=== PATIENT | female | born 1965 | race Caucasian/White ===

== ENCOUNTER 2019-08-10 16:46 | Emergency (ER) | payer OTHER ==
[~2019-08-10] VITALS: Ht 154.9 cm; Wt 72.6 kg
--- OUTSIDE RECORDS SUMMARY | 2019-08-10 16:59 | XMS REPORT ---
Author Author [facility] Address Unknown Phone Unavailable Care Team Providers Care Timber Inspector Name Role Phone DILMA SANCHEZ Unavailable Unavailable JAMES, ABDIRASHID SIMON Unavailable Unavailable DITOMMASO, MOHAN JOHAN Unavailable Unavailable DIOMEDES, CASSIA Unavailable Unavailable Problems This patient has no known problems. Allergies, Adverse Reactions, Alerts This patient has no known allergies or adverse reactions. Medications This patient has no known medications. Results Test Description Test Time Test Comments Text Results Atomic Results Result Comments RAD, CHEST, 1 VIEW, NON DEPT 2019-03-08 14:00:00 Reason for exam:->s/p perc pulm stentIs the patient ?->NoShould this be performed at the bedside?->Yes FINAL REPORT Comparison: 04/25/2018 TECHNIQUE: Single view of the chest FINDINGS: Mild vascular congestion. There may be trace pleural effusions. Small left pleural effusion. Interval placement of percutaneous pulmonary stent. No gross new lung parenchymal changes. IMPRESSION: Mild vascular congestion, and trace left pleural effusion. No pneumothorax. Interval placement of a percutaneous pulmonary stent. Signed: Aidan Nicole MDReport Verified Date/Time: 03/08/2019 14:00:53 Reading Location: [facility] Radiology Reading Room ESIUM 2019-03-08 05:09:00 MAGNESIUM (BEAKER) (test bdfo=266) 1.8 mg/dL 1.6-2.6 BASIC METABOLIC [id number] 05:09:00* Test Item Value Reference Range Comments SODIUM (BEAKER) (test degi=499) 140 meq/L 136-145 POTASSIUM (BEAKER) (test ucvy=094) 3.7 meq/L 3.5-5.1 CHLORIDE (BEAKER) (test cdel=160) 113 meq/L 98-107 CO2 (BEAKER) (test zogh=966) 20 meq/L 22-29 BLOOD UREA NITROGEN (BEAKER) (test uaxu=875) 18 mg/dL 7-21 CREATININE (BEAKER) (test jrpk=734) 0.97 mg/dL 0.57-1.25 GLUCOSE RANDOM (BEAKER) (test nsah=354) 76 mg/dL 70-105 CALCIUM (BEAKER) (test yqdb=731) 8.2 mg/dL 8.4-10.2 EGFR (BEAKER) (test jrsz=6330) 60 mL/min/1.73 sq m ESTIMATED GFR IS NOT ACCURATE CREATININE CLEARANCE IN PREDICTING GLOMERULAR FILTRATION RATE. ESTIMATED GFR IS NOT APPLICABLE FOR DIALYSIS PATIENTS. CBC W/PLT COUNT & AUTO [id number] 04:49:00* Test Item Value Reference Range Comments WHITE BLOOD CELL COUNT (BEAKER) (test mgij=940) 6.2 K/ L 3.5-10.5 RED BLOOD CELL COUNT (BEAKER) (test btkf=224) 3.43 M/ L 3.93-5.22 HEMOGLOBIN (BEAKER) (test mrpx=823) 10.0 GM/DL 11.2-15.7 HEMATOCRIT (BEAKER) (test ukif=289) 31.1 % 34.1-44.9 MEAN CORPUSCULAR VOLUME (BEAKER) (test pdtn=775) 90.7 fL 79.4-94.8 MEAN CORPUSCULAR HEMOGLOBIN (BEAKER) (test myid=541) 29.2 pg 25.6-32.2 MEAN CORPUSCULAR HEMOGLOBIN CONC (BEAKER) (test gvzp=238) 32.2 GM/DL 32.2-35.5 RED CELL DISTRIBUTION WIDTH (BEAKER) (test meaw=053) 14.0 % 11.7-14.4 PLATELET COUNT (BEAKER) (test hlgs=222) 135 K/CU MM 150-450 MEAN PLATELET VOLUME (BEAKER) (test ddkf=919) 10.9 fL 9.4-12.3 NUCLEATED RED BLOOD CELLS (BEAKER) (test lhfa=995) 0 /100 WBC 0-0 NEUTROPHILS RELATIVE PERCENT (BEAKER) (test kwwq=064) 64 % LYMPHOCYTES RELATIVE PERCENT (BEAKER) (test ofwy=038) 20 % MONOCYTES RELATIVE PERCENT (BEAKER) (test tlha=466) 9 % EOSINOPHILS RELATIVE PERCENT (BEAKER) (test djwa=979) 6 % BASOPHILS RELATIVE PERCENT (BEAKER) (test njqb=031) 0 % NEUTROPHILS ABSOLUTE COUNT (BEAKER) (test jeqj=183) 3.97 K/ L 1.56-6.13 LYMPHOCYTES ABSOLUTE COUNT (BEAKER) (test szgb=122) 1.24 K/ L 1.18-3.74 MONOCYTES ABSOLUTE COUNT (BEAKER) (test mjcy=314) 0.57 K/ L 0.24-0.36 EOSINOPHILS ABSOLUTE COUNT (BEAKER) (test zdmg=160) 0.37 K/ L 0.04-0.36 BASOPHILS ABSOLUTE COUNT (BEAKER) (test hzds=512) 0.02 K/ L 0.01-0.08 IMMATURE GRANULOCYTES-RELATIVE PERCENT (BEAKER) (test fqlo=5226) 0 % 0-1 [id number] 15:12:00* Test Item Value Reference Range Comments ACTIVATED CLOTTING TIME (BEAKER) (test ydfk=166) 362 sec TESTED AT [facility] [address] [facility] [address] [id number] 15:12:00* Test Item Value Reference Range Comments ACTIVATED CLOTTING TIME (BEAKER) (test atko=748) 400 sec TESTED AT [facility] [address] [facility] [address] CT, [id number] 14:46:00FINAL REPORT ABDOMINAL AND PELVIS CT DATED 10/05/2018 CLINICAL INFORMATION: LLQ pain TECHNIQUE: Axial images of the abdomen and pelvis were obtained from diaphragm to the pubic symphysis with intravenous contrast. This exam was performed according to our departmental dose-optimization program, which includes automated exposure control, adjustment of the mA and/or kV according to patient size and/or use of interactive reconstruction technique. COMMENT: Liver and spleen are normal in size without focal abnormality. Gallbladder is contracted. Several gallstones are present. No biliary dilatation is noted. Pancreas and adrenals are unremarkable. There is persistent severe left hydronephrosis. Diverticular disease is seen in the large bowel without diverticulitis. The small bowel is normal in caliber. Appendix is unremarkable. There is persistent dissection extending from the visualized distal descending thoracic aorta through the entire abdominal aorta into the left common iliac artery. 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 IMPRESSION: 1. 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 Persistent severe left h ydronephrosis.3. Diverticulosis without diverticulitis.4. Cholelithiasis without biliary dilatation. Signed: Jhonny Miner MDReport Verified Date/Time: 10/05/2018 14:46:25 Reading Location: [facility] [id number] CT Body Reading Room ALYSIS W/ REFLEX URINE [id number] 13:39:00* Test Item Value Reference Range Comments COLOR (BEAKER) (test tdoc=549) Yellow CLARITY (BEAKER) (test fghb=973) Clear SPECIFIC GRAVITY UA (BEAKER) (test dmtx=637) 1.010 1.001-1.035 PH UA (BEAKER) (test kimz=412) 5.5 5.0-8.0 PROTEIN UA (BEAKER) (test suaf=827) Negative Negative GLUCOSE UA (BEAKER) (test ucdm=371) Negative Negative KETONES UA (BEAKER) (test aebo=553) Negative Negative BILIRUBIN UA (BEAKER) (test hpbu=227) Negative Negative BLOOD UA (BEAKER) (test xngc=283) Negative Negative NITRITE UA (BEAKER) (test foys=152) Negative Negative LEUKOCYTE ESTERASE UA (BEAKER) (test zgzm=730) Negative Negative UROBILINOGEN UA (BEAKER) (test xmaf=434) 0.2 mg/dL 0.2-1.0 BACTERIA (BEAKER) (test jmyo=842) Occasional RBC UA-MANUAL (BEAKER) (test qira=4400) None Seen /HPF WBC UA-MANUAL (BEAKER) (test xkuk=9001) None Seen /HPF SQUAMOUS EPITHELIAL MANUAL (BEAKER) (test vxdq=3656) None Seen /HPF SOURCE(BEAKER) (test kiru=0020) HEPATIC FUNCTION [id number] 13:36:00* Test Item Value Reference Range Comments TOTAL PROTEIN (BEAKER) (test wgtv=189) 6.9 gm/dL 6.0-8.5 ALBUMIN (BEAKER) (test voqj=6313) 4.1 g/dL 3.5-5.0 BILIRUBIN TOTAL (BEAKER) (test kfhs=264) 0.3 mg/dL 0.1-1.2 BILIRUBIN DIRECT (BEAKER) (test cegw=348) 0.0 mg/dL 0.0-0.4 ALKALINE PHOSPHATASE (BEAKER) (test occp=093) 71 U/L 30-115 AST (SGOT) (BEAKER) (test ubaj=671) 29 U/L 5-40 ALT (SGPT) (BEAKER) (test vccb=950) 39 U/L 5-50 BASIC METABOLIC [id number] 13:34:00* Test Item Value Reference Range Comments SODIUM (BEAKER) (test mrwd=317) 143 meq/L 135-148 POTASSIUM (BEAKER) (test tyko=359) 3.6 meq/L 3.6-5.5 CHLORIDE (BEAKER) (test rypm=124) 106 meq/L 98-106 CO2 (BEAKER) (test xdiv=435) 24 meq/L 24-32 BLOOD UREA NITROGEN (BEAKER) (test tnip=718) 28 mg/dL 10-26 CREATININE (BEAKER) (test jlxy=903) 1.15 mg/dL 0.50-1.20 GLUCOSE RANDOM (BEAKER) (test ufev=312) 75 mg/dL 70-110 CALCIUM (BEAKER) (test mfdf=973) 9.0 mg/dL 8.5-10.5 EGFR (BEAKER) (test ynjv=7504) 50 mL/min/1.73 sq m ESTIMATED GFR IS NOT ACCURATE CREATININE CLEARANCE IN PREDICTING GLOMERULAR FILTRATION RATE. ESTIMATED GFR IS NOT APPLICABLE FOR DIALYSIS PATIENTS. [id number] 13:34:00* Test Item Value Reference Range Comments LIPASE (BEAKER) (test tyjk=112) 129 U/L 40-240 CBC W/PLT COUNT & AUTO [id number] 13:31:00* Test Item Value Reference Range Comments WHITE BLOOD CELL COUNT (BEAKER) (test iqjv=152) 5.1 K/ L 4.0-10.0 RED BLOOD CELL COUNT (BEAKER) (test nser=544) 3.81 M/ L 4.00-5.00 HEMOGLOBIN (BEAKER) (test xzww=963) 11.4 GM/DL 12.0-15.0 HEMATOCRIT (BEAKER) (test lvju=539) 34.0 % 36.0-45.0 MEAN CORPUSCULAR VOLUME (BEAKER) (test guig=440) 89.1 fL 82.0-99.0 MEAN CORPUSCULAR HEMOGLOBIN (BEAKER) (test jojg=331) 30.0 pg 27.0-33.0 MEAN CORPUSCULAR HEMOGLOBIN CONC (BEAKER) (test ejik=291) 33.6 GM/DL 32.0-36.0 RED CELL DISTRIBUTION WIDTH (BEAKER) (test ycfa=511) 12.8 % 10.3-14.2 PLATELET COUNT (BEAKER) (test ydgb=604) 205 K/CU MM 150-430 MEAN PLATELET VOLUME (BEAKER) (test buuq=956) 7.6 fL 6.5-10.5 NEUTROPHILS RELATIVE PERCENT (BEAKER) (test arhe=883) 45 % LYMPHOCYTES RELATIVE PERCENT (BEAKER) (test qldg=530) 37 % MONOCYTES RELATIVE PERCENT (BEAKER) (test fiqk=665) 12 % EOSINOPHILS RELATIVE PERCENT (BEAKER) (test xsbb=288) 6 % BASOPHILS RELATIVE PERCENT (BEAKER) (test kodn=722) 1 % NEUTROPHILS ABSOLUTE COUNT (BEAKER) (test utwh=620) 2.27 K/ L 1.80-8.00 LYMPHOCYTES ABSOLUTE COUNT (BEAKER) (test mbmf=321) 1.88 K/ L 1.48-4.50 MONOCYTES ABSOLUTE COUNT (BEAKER) (test kzqc=331) 0.59 K/ L 0.00-1.30 EOSINOPHILS ABSOLUTE COUNT (BEAKER) (test igty=693) 0.29 K/ L 0.00-0.50 BASOPHILS ABSOLUTE COUNT (BEAKER) (test kcmq=270) 0.03 K/ L 0.00-0.20 PUL QUANT DIFFERENTIAL FUNCT [id number] 17:03:00FINAL REPORT PROCEDURE: V/Q LUNG SCAN w/differential function (xenon) CPT CODE: [id number] INDICATION: Pulmonary hypertension, dyspnea PROTOCOL: 9.8 mCi of Xe-133 gas was administered by inhalation. Single breath, rebreathing images and washout images were obtained in the anterior and the posterior projections. 4.3 mCi of Tc-99m MAA was then injected intravenously, and static perfusion images were obtained in multiple projections. Relative tracer distribution was determined using the geometric mean method for the anterior and posterior projections. FINDINGS: Ventilation: Initial tr acer distribution is mildly decreased in the right upper lobe and the left apex. Tracer is divided 37% to the left lung (10, 22, and 5% to the upper, mid, and l ower lung rodriguez respectively) and 63% to the right lung (12, 32, and 19% to the upper, mid, and lower lung rodriguez respectively). Washout is moderately delayed throughout both lungs. Perfusion: Tracer distribution is mildly, irregularly de creased in the posterior left lung and left apex in a nonsegmental distribution. There is moderate, lobar decrease in activity in the right upper and middle lob es and mild decrease in the right lower lobe. Pulmonary artery flow is divided 5 4% to the left lung (10, 36, and 8% to the upper, mid, and lower lung rodriguez res pectively) and 46% to the right lung (6, 29, and 11% to the upper, mid, and lowe r lung rodriguez respectively). IMPRESSION: 1.Very low probability of acute p ulmonary embolization.2.Parenchymal abnormalities of both lungs with volume loss in the left lung.3.Ventilation and perfusion deficits are not proportional with relatively decreased perfusion of the right lung compared to the ventilatory de ficit. This pattern may be due to parenchymal abnormality, but in the absence of such findings, proximal right pulmonary artery stenosis could also cause this a bnormality. Signed: Nathaniel Morgan MDReport Verified Date/Time: 05/03/2018 17:03 :55 Reading Location: [address] Reading Room Electronically s igned by: NATHANIEL MORGAN MD on 05/03/2018 05:03 PM RAD, CHEST, 2 VIEWS 2018-04-25 12:56:00Reason for Exam:->R06.00FINAL REPORT HISTORY : R06.00. Comparison: 03/23/2017 Comment: Two views of the chest, PA and lateral, were obtained. The cardiac silhouette is within normal limits. No pneumothorax or pleural effusion is seen. No lytic or blastic abnormalities. The patient is status post sternotomy. There is a tortuous/ectatic thoracic aorta. There is some nonspecific interstitial prominence as well as possible fibrosis in the lung bases. There is also some accompanying patchy airspace disease in the lung bases. Multilevel degenerative disc changes of the thoracic spine are seen. Impression: Persistent interstitial prominence and patchy airspace disease in the lung bases. The airspace disease is slightly increased. Signed: Portia Mello MDReport Verified Date/Time: 04/25/2018 12:56:32 Reading Location: [address] Radiology Reading Room CULTURE + [id number] 10:19:00* Test Item Value Reference Range Comments CULTURE (BEAKER) (test xutq=3148) No acid-fast bacilli isolated in 42 days AFB SMEAR (BEAKER) (test wehr=509) No acid fast bacilli seen BASIC METABOLIC [id number] 07:04:00* Test Item Value Reference Range Comments SODIUM (BEAKER) (test mntd=970) 127 meq/L 136-145 POTASSIUM (BEAKER) (test plsw=796) 5.0 meq/L 3.5-5.1 Specimen slightly hemolyzed CHLORIDE (BEAKER) (test gudb=853) 95 meq/L 98-107 CO2 (BEAKER) (test uudp=140) 23 meq/L 22-29 BLOOD UREA NITROGEN (BEAKER) (test oxjj=994) 23 mg/dL 7-21 CREATININE (BEAKER) (test rxwh=719) 1.44 mg/dL 0.57-1.25 Specimen slightly hemolyzed GLUCOSE RANDOM (BEAKER) (test orqq=189) 90 mg/dL 70-105 CALCIUM (BEAKER) (test rdoe=110) 9.3 mg/dL 8.4-10.2 EGFR (BEAKER) (test sbug=7956) 38 mL/min/1.73 sq m ESTIMATED GFR IS NOT ACCURATE CREATININE CLEARANCE IN PREDICTING GLOMERULAR FILTRATION RATE. ESTIMATED GFR IS NOT APPLICABLE FOR DIALYSIS PATIENTS. POCT-GLUCOSE [id number] 06:11:00* Test Item Value Reference Range Comments POC-GLUCOSE METER (BEAKER) (test antv=0354) 110 mg/dL 70-110 TESTED AT [facility] [address] [facility] [address] URINALYSIS W/ [id number] 19:14:00* Test Item Value Reference Range Comments COLOR (BEAKER) (test tbsa=610) Light Yellow CLARITY (BEAKER) (test oupl=755) Clear SPECIFIC GRAVITY UA (BEAKER) (test gvul=396) 1.004 1.001-1.035 PH UA (BEAKER) (test ezzs=851) 6.5 5.0-8.0 PROTEIN UA (BEAKER) (test jghl=575) Negative Negative GLUCOSE UA (BEAKER) (test pwls=587) Negative Negative KETONES UA (BEAKER) (test hwnm=965) Negative Negative BILIRUBIN UA (BEAKER) (test lxnt=391) Negative Negative BLOOD UA (BEAKER) (test woup=533) Negative Negative NITRITE UA (BEAKER) (test ycka=486) Negative Negative LEUKOCYTE ESTERASE UA (BEAKER) (test jleq=440) Trace Negative UROBILINOGEN UA (BEAKER) (test hskt=275) 0.2 mg/dL 0.2-1.0 RBC UA (BEAKER) (test wplz=087) 0 /HPF WBC UA (BEAKER) (test ocon=040) 2 /HPF SQUAMOUS EPITHELIAL (BEAKER) (test kvjs=728) < /HPF HYALINE CASTS (BEAKER) (test nddt=258) 5 /LPF SOURCE(BEAKER) (test wjfg=2830) POCT-GLUCOSE [id number] 16:09:00* Test Item Value Reference Range Comments POC-GLUCOSE METER (BEAKER) (test eztl=0394) 112 mg/dL 70-110 TESTED AT [facility] [address] [facility] [address] [id number] 06:49:00* Test Item Value Reference Range Comments MAGNESIUM (BEAKER) (test ttfk=389) 2.1 mg/dL 1.6-2.6 BASIC METABOLIC [id number] 06:49:00* Test Item Value Reference Range Comments SODIUM (BEAKER) (test gzgi=692) 128 meq/L 136-145 POTASSIUM (BEAKER) (test ovzk=429) 4.6 meq/L 3.5-5.1 CHLORIDE (BEAKER) (test pgon=815) 95 meq/L 98-107 CO2 (BEAKER) (test pldn=529) 23 meq/L 22-29 BLOOD UREA NITROGEN (BEAKER) (test mhqd=848) 24 mg/dL 7-21 CREATININE (BEAKER) (test iuij=708) 1.43 mg/dL 0.57-1.25 GLUCOSE RANDOM (BEAKER) (test yvwi=931) 96 mg/dL 70-105 CALCIUM (BEAKER) (test unhh=447) 9.5 mg/dL 8.4-10.2 EGFR (BEAKER) (test thfc=7923) 39 mL/min/1.73 sq m ESTIMATED GFR IS NOT ACCURATE CREATININE CLEARANCE IN PREDICTING GLOMERULAR FILTRATION RATE. ESTIMATED GFR IS NOT APPLICABLE FOR DIALYSIS PATIENTS. POCT-GLUCOSE [id number] 06:05:00* Test Item Value Reference Range Comments POC-GLUCOSE METER (BEAKER) (test uyju=7070) 102 mg/dL 70-110 TESTED AT [address] [address] POCT-GLUCOSE [id number] 16:21:00* Test Item Value Reference Range Comments POC-GLUCOSE METER (BEAKER) (test qcbv=0704) 151 mg/dL 70-110 TESTED AT [place] [id number] [facility] [address] POCT-GLUCOSE [id number] 06:23:00* Test Item Value Reference Range Comments POC-GLUCOSE METER (BEAKER) (test qntc=1657) 101 mg/dL 70-110 TESTED AT [address] [address] BASIC METABOLIC [id number] 06:15:00* Test Item Value Reference Range Comments SODIUM (BEAKER) (test ixlc=887) 128 meq/L 136-145 POTASSIUM (BEAKER) (test gqit=932) 4.4 meq/L 3.5-5.1 CHLORIDE (BEAKER) (test mspp=818) 94 meq/L 98-107 CO2 (BEAKER) (test brzz=501) 22 meq/L 22-29 BLOOD UREA NITROGEN (BEAKER) (test hzyb=590) 21 mg/dL 7-21 CREATININE (BEAKER) (test bfwh=693) 1.36 mg/dL 0.57-1.25 GLUCOSE RANDOM (BEAKER) (test gwkr=387) 101 mg/dL 70-105 CALCIUM (BEAKER) (test ijzu=250) 9.4 mg/dL 8.4-10.2 EGFR (BEAKER) (test jvnb=5654) 41 mL/min/1.73 sq m ESTIMATED GFR IS NOT ACCURATE CREATININE CLEARANCE IN PREDICTING GLOMERULAR FILTRATION RATE. ESTIMATED GFR IS NOT APPLICABLE FOR DIALYSIS PATIENTS. [id number] 06:13:00* Test Item Value Reference Range Comments MAGNESIUM (BEAKER) (test pwmk=509) 2.2 mg/dL 1.6-2.6 CBC W/PLT COUNT & AUTO [id number] 05:46:00* Test Item Value Reference Range Comments WHITE BLOOD CELL COUNT (BEAKER) (test zyso=794) 7.4 K/ L 3.5-10.5 RED BLOOD CELL COUNT (BEAKER) (test rnqu=204) 3.05 M/ L 3.93-5.22 HEMOGLOBIN (BEAKER) (test wvud=512) 9.2 GM/DL 11.2-15.7 HEMATOCRIT (BEAKER) (test iiku=837) 28.0 % 34.1-44.9 MEAN CORPUSCULAR VOLUME (BEAKER) (test varw=919) 91.8 fL 79.4-94.8 MEAN CORPUSCULAR HEMOGLOBIN (BEAKER) (test fiux=021) 30.2 pg 25.6-32.2 MEAN CORPUSCULAR HEMOGLOBIN CONC (BEAKER) (test ptdf=480) 32.9 GM/DL 32.2-35.5 RED CELL DISTRIBUTION WIDTH (BEAKER) (test sqam=392) 14.4 % 11.7-14.4 PLATELET COUNT (BEAKER) (test rchy=234) 326 K/CU MM 150-450 MEAN PLATELET VOLUME (BEAKER) (test kqgu=060) 8.7 fL 9.4-12.3 NUCLEATED RED BLOOD CELLS (BEAKER) (test igph=508) 0 /100 WBC 0-0 NEUTROPHILS RELATIVE PERCENT (BEAKER) (test nprd=563) 48 % LYMPHOCYTES RELATIVE PERCENT (BEAKER) (test msba=495) 39 % MONOCYTES RELATIVE PERCENT (BEAKER) (test gctd=238) 9 % EOSINOPHILS RELATIVE PERCENT (BEAKER) (test vpfw=357) 4 % BASOPHILS RELATIVE PERCENT (BEAKER) (test pywm=118) 1 % NEUTROPHILS ABSOLUTE COUNT (BEAKER) (test zmwj=606) 3.51 K/ L 1.56-6.13 LYMPHOCYTES ABSOLUTE COUNT (BEAKER) (test anqq=005) 2.84 K/ L 1.18-3.74 MONOCYTES ABSOLUTE COUNT (BEAKER) (test mqwd=535) 0.67 K/ L 0.24-0.36 EOSINOPHILS ABSOLUTE COUNT (BEAKER) (test nzeo=262) 0.26 K/ L 0.04-0.36 BASOPHILS ABSOLUTE COUNT (BEAKER) (test epxm=748) 0.04 K/ L 0.01-0.08 IMMATURE GRANULOCYTES-RELATIVE PERCENT (BEAKER) (test qnzr=0706) 1 % 0-1 POCT-GLUCOSE [id number] 16:38:00* Test Item Value Reference Range Comments POC-GLUCOSE METER (BEAKER) (test quzx=0215) 156 mg/dL 70-110 TESTED AT [address] [address] OSMOLALITY, [id number] 08:32:00* Test Item Value Reference Range Comments OSMOLALITY, SERUM (BEAKER) (test kfib=205) 272 mOsm/kg 275-295 TSH/FREE T4 IF [id number] 07:24:00* Test Item Value Reference Range Comments THYROID STIMULATING HORMONE (BEAKER) (test akwe=444) 1.62 uIU/mL 0.35-4.94 [id number] 06:57:00* Test Item Value Reference Range Comments MAGNESIUM (BEAKER) (test tsfi=531) 2.2 mg/dL 1.6-2.6 POCT-GLUCOSE [id number] 06:06:00* Test Item Value Reference Range Comments POC-GLUCOSE METER (BEAKER) (test dmvf=1466) 110 mg/dL 70-110 TESTED AT [address] [address] SODIUM, RANDOM [id number] 23:03:00* Test Item Value Reference Range Comments SODIUM URINE (BEAKER) (test xpfz=183) 77 meq/L Reference Range: No NormalsOSMOLALITY, [id number] 22:54:00* Test Item Value Reference Range Comments OSMOLALITY URINE (BEAKER) (test zdmq=896) 277 mOsm/kg 40-1400 POCT-GLUCOSE [id number] 16:09:00* Test Item Value Reference Range Comments POC-GLUCOSE METER (BEAKER) (test nroy=9234) 124 mg/dL 70-110 TESTED AT [address] [address] BASIC METABOLIC [id number] 08:34:00* Test Item Value Reference Range Comments SODIUM (BEAKER) (test okkr=152) 129 meq/L 136-145 POTASSIUM (BEAKER) (test uovd=613) 3.8 meq/L 3.5-5.1 CHLORIDE (BEAKER) (test gshl=095) 102 meq/L 98-107 CO2 (BEAKER) (test mfmp=062) 18 meq/L 22-29 BLOOD UREA NITROGEN (BEAKER) (test wccx=209) 14 mg/dL 7-21 CREATININE (BEAKER) (test owrv=814) 0.88 mg/dL 0.57-1.25 GLUCOSE RANDOM (BEAKER) (test anyy=013) 82 mg/dL 70-105 CALCIUM (BEAKER) (test wowu=583) 7.7 mg/dL 8.4-10.2 EGFR (BEAKER) (test bout=1802) 67 mL/min/1.73 sq m ESTIMATED GFR IS NOT ACCURATE CREATININE CLEARANCE IN PREDICTING GLOMERULAR FILTRATION RATE. ESTIMATED GFR IS NOT APPLICABLE FOR DIALYSIS PATIENTS. [id number] 08:15:00* Test Item Value Reference Range Comments MAGNESIUM (BEAKER) (test qotx=481) 1.3 mg/dL 1.6-2.6 CBC (HEMOGRAM ONLY)2018-03-27 08:05:00* Test Item Value Reference Range Comments WHITE BLOOD CELL COUNT (BEAKER) (test wefu=033) 8.0 K/ L 3.5-10.5 RED BLOOD CELL COUNT (BEAKER) (test ieqx=274) 2.72 M/ L 3.93-5.22 HEMOGLOBIN (BEAKER) (test efzs=421) 8.4 GM/DL 11.2-15.7 HEMATOCRIT (BEAKER) (test bczd=621) 25.4 % 34.1-44.9 MEAN CORPUSCULAR VOLUME (BEAKER) (test mtwa=854) 93.4 fL 79.4-94.8 MEAN CORPUSCULAR HEMOGLOBIN (BEAKER) (test upoj=918) 30.9 pg 25.6-32.2 MEAN CORPUSCULAR HEMOGLOBIN CONC (BEAKER) (test wqvz=561) 33.1 GM/DL 32.2-35.5 RED CELL DISTRIBUTION WIDTH (BEAKER) (test qzrd=940) 14.6 % 11.7-14.4 PLATELET COUNT (BEAKER) (test ibsi=778) 326 K/CU MM 150-450 MEAN PLATELET VOLUME (BEAKER) (test wzmz=299) 9.0 fL 9.4-12.3 NUCLEATED RED BLOOD CELLS (BEAKER) (test rxrf=448) 0 /100 WBC 0-0 POCT-GLUCOSE [id number] 05:50:00* Test Item Value Reference Range Comments POC-GLUCOSE METER (BEAKER) (test rknf=7661) 108 mg/dL 70-110 TESTED AT [address] [address] POCT-GLUCOSE [id number] 16:12:00* Test Item Value Reference Range Comments POC-GLUCOSE METER (BEAKER) (test ikel=5130) 176 mg/dL 70-110 TESTED AT [address] [address] POCT-GLUCOSE [id number] 06:07:00* Test Item Value Reference Range Comments POC-GLUCOSE METER (BEAKER) (test zaox=8839) 98 mg/dL 70-110 TESTED AT [address] [address] POCT-GLUCOSE [id number] 16:27:00* Test Item Value Reference Range Comments POC-GLUCOSE METER (BEAKER) (test sflp=0964) 187 mg/dL 70-110 TESTED AT [address] [address] POCT-GLUCOSE [id number] 05:46:00* Test Item Value Reference Range Comments POC-GLUCOSE METER (BEAKER) (test aajb=3159) 97 mg/dL 70-110 TESTED AT [address] [address] POCT-GLUCOSE [id number] 17:09:00* Test Item Value Reference Range Comments POC-GLUCOSE METER (BEAKER) (test fnhy=8806) 134 mg/dL 70-110 TESTED AT [address] [address] [id number] 07:10:00* Test Item Value Reference Range Comments MAGNESIUM (BEAKER) (test brof=302) 2.0 mg/dL 1.6-2.6 BASIC METABOLIC [id number] 07:10:00* Test Item Value Reference Range Comments SODIUM (BEAKER) (test nxai=314) 129 meq/L 136-145 POTASSIUM (BEAKER) (test rpyk=662) 4.7 meq/L 3.5-5.1 CHLORIDE (BEAKER) (test ausd=568) 99 meq/L 98-107 CO2 (BEAKER) (test xgzr=864) 22 meq/L 22-29 BLOOD UREA NITROGEN (BEAKER) (test giqs=852) 11 mg/dL 7-21 CREATININE (BEAKER) (test ptco=740) 0.81 mg/dL 0.57-1.25 GLUCOSE RANDOM (BEAKER) (test tbxk=699) 105 mg/dL 70-105 CALCIUM (BEAKER) (test ovtt=887) 9.4 mg/dL 8.4-10.2 EGFR (BEAKER) (test ftxe=2896) 74 mL/min/1.73 sq m ESTIMATED GFR IS NOT ACCURATE CREATININE CLEARANCE IN PREDICTING GLOMERULAR FILTRATION RATE. ESTIMATED GFR IS NOT APPLICABLE FOR DIALYSIS PATIENTS. CBC (HEMOGRAM ONLY)2018-03-24 06:38:00* Test Item Value Reference Range Comments WHITE BLOOD CELL COUNT (BEAKER) (test ipcj=208) 7.7 K/ L 3.5-10.5 RED BLOOD CELL COUNT (BEAKER) (test pluy=818) 2.93 M/ L 3.93-5.22 HEMOGLOBIN (BEAKER) (test wwjh=795) 9.0 GM/DL 11.2-15.7 HEMATOCRIT (BEAKER) (test kdnh=695) 26.9 % 34.1-44.9 MEAN CORPUSCULAR VOLUME (BEAKER) (test fgmc=539) 91.8 fL 79.4-94.8 MEAN CORPUSCULAR HEMOGLOBIN (BEAKER) (test txoe=948) 30.7 pg 25.6-32.2 MEAN CORPUSCULAR HEMOGLOBIN CONC (BEAKER) (test ythd=354) 33.5 GM/DL 32.2-35.5 RED CELL DISTRIBUTION WIDTH (BEAKER) (test eneg=532) 14.6 % 11.7-14.4 PLATELET COUNT (BEAKER) (test llhh=696) 314 K/CU MM 150-450 MEAN PLATELET VOLUME (BEAKER) (test nnwe=188) 8.5 fL 9.4-12.3 NUCLEATED RED BLOOD CELLS (BEAKER) (test duiu=042) 0 /100 WBC 0-0 POCT-GLUCOSE [id number] 06:03:00* Test Item Value Reference Range Comments POC-GLUCOSE METER (BEAKER) (test rpgm=4323) 106 mg/dL 70-110 TESTED AT [facility] [address] [facility] [address] RAD, CHEST, 1 VIEW, NON [id number] 21:09:00Reason for exam:->r/o aspiration pneumoniaShould this be performed at the bedside?->YesFINAL REPORT RAD, CHEST, 1 VIEW, NON DEPT INDICATION: r/o aspiration pneumonia COMPARISON: March 13, 2018 FINDINGS: Portable frontal view of the chest. IMPRESSION: Support Lines: The tracheostomy tube is been removed. Lungs and pleura: Basilar atelectatic changes noted bilaterally. Interstitial markings are similar to the prior examination. No new consolidation. No pneumothorax.Heart and mediastinum: Stable contours. Stable surgical changes.Additional findings: None. Signed: JR Lucas Robert MDReport Verified Date/Time: 03/23/2018 21:09:41 Reading Location: [address] Body Reading Room -GLUCOSE METER 2018-03-23 17:46:00* Test Item Value Reference Range Comments POC-GLUCOSE METER (BEAKER) (test wedp=9032) 138 mg/dL 70-110 TESTED AT [place] [id number] [facility] [address] [id number] 07:59:00* Test Item Value Reference Range Comments MAGNESIUM (BEAKER) (test zkot=705) 2.2 mg/dL 1.6-2.6 Specimen slightly hemolyzed BASIC METABOLIC [id number] 07:59:00* Test Item Value Reference Range Comments SODIUM (BEAKER) (test tess=626) 129 meq/L 136-145 POTASSIUM (BEAKER) (test cigx=867) 4.4 meq/L 3.5-5.1 Specimen slightly hemolyzed CHLORIDE (BEAKER) (test kbpe=308) 97 meq/L 98-107 CO2 (BEAKER) (test fmnh=847) 23 meq/L 22-29 BLOOD UREA NITROGEN (BEAKER) (test lmss=380) 12 mg/dL 7-21 CREATININE (BEAKER) (test cgzs=930) 0.82 mg/dL 0.57-1.25 Specimen slightly hemolyzed GLUCOSE RANDOM (BEAKER) (test jlkb=559) 94 mg/dL 70-105 CALCIUM (BEAKER) (test irne=036) 10.0 mg/dL 8.4-10.2 EGFR (BEAKER) (test rhkg=3086) 73 mL/min/1.73 sq m ESTIMATED GFR IS NOT ACCURATE CREATININE CLEARANCE IN PREDICTING GLOMERULAR FILTRATION RATE. ESTIMATED GFR IS NOT APPLICABLE FOR DIALYSIS PATIENTS. POCT-GLUCOSE [id number] 06:05:00* Test Item Value Reference Range Comments POC-GLUCOSE METER (BEAKER) (test waap=9044) 114 mg/dL 70-110 TESTED AT [address] [address] AFB CULTURE + [id number] 22:03:00* Test Item Value Reference Range Comments CULTURE (BEAKER) (test onmk=4256) No acid-fast bacilli isolated in 42 days AFB SMEAR (BEAKER) (test sdjm=034) No acid fast bacilli seen POCT-GLUCOSE [id number] 18:17:00* Test Item Value Reference Range Comments POC-GLUCOSE METER (BEAKER) (test kcdn=9952) 119 mg/dL 70-110 TESTED AT [address] [address] POCT-GLUCOSE [id number] 11:08:00* Test Item Value Reference Range Comments POC-GLUCOSE METER (BEAKER) (test ikka=5386) 173 mg/dL 70-110 TESTED AT [address] [address] [id number] 05:58:00* Test Item Value Reference Range Comments MAGNESIUM (BEAKER) (test znnd=060) 1.9 mg/dL 1.6-2.6 BASIC METABOLIC [id number] 05:58:00* Test Item Value Reference Range Comments SODIUM (BEAKER) (test bygo=348) 129 meq/L 136-145 POTASSIUM (BEAKER) (test piuz=583) 3.5 meq/L 3.5-5.1 CHLORIDE (BEAKER) (test difu=490) 95 meq/L 98-107 CO2 (BEAKER) (test tivl=120) 24 meq/L 22-29 BLOOD UREA NITROGEN (BEAKER) (test treb=444) 14 mg/dL 7-21 CREATININE (BEAKER) (test qsyo=788) 0.84 mg/dL 0.57-1.25 GLUCOSE RANDOM (BEAKER) (test twhq=146) 114 mg/dL 70-105 CALCIUM (BEAKER) (test fsyc=200) 9.3 mg/dL 8.4-10.2 EGFR (BEAKER) (test ziqx=6545) 71 mL/min/1.73 sq m ESTIMATED GFR IS NOT ACCURATE CREATININE CLEARANCE IN PREDICTING GLOMERULAR FILTRATION RATE. ESTIMATED GFR IS NOT APPLICABLE FOR DIALYSIS PATIENTS. POCT-GLUCOSE [id number] 05:50:00* Test Item Value Reference Range Comments POC-GLUCOSE METER (BEAKER) (test qsyg=8664) 112 mg/dL 70-110 TESTED AT [address] [address] POCT-GLUCOSE [id number] 20:38:00* Test Item Value Reference Range Comments POC-GLUCOSE METER (BEAKER) (test xayn=3647) 149 mg/dL 70-110 TESTED AT [address] [address] POCT-GLUCOSE [id number] 16:17:00* Test Item Value Reference Range Comments POC-GLUCOSE METER (BEAKER) (test pmiv=6631) 164 mg/dL 70-110 TESTED AT [address] [address] POCT-GLUCOSE [id number] 12:01:00* Test Item Value Reference Range Comments POC-GLUCOSE METER (BEAKER) (test ztmv=1222) 173 mg/dL 70-110 TESTED AT [address] [address] [id number] 06:45:00* Test Item Value Reference Range Comments MAGNESIUM (BEAKER) (test vysr=633) 2.1 mg/dL 1.6-2.6 BASIC METABOLIC [id number] 06:45:00* Test Item Value Reference Range Comments SODIUM (BEAKER) (test wege=567) 128 meq/L 136-145 POTASSIUM (BEAKER) (test nxqh=728) 3.5 meq/L 3.5-5.1 CHLORIDE (BEAKER) (test eofh=797) 94 meq/L 98-107 CO2 (BEAKER) (test drve=314) 24 meq/L 22-29 BLOOD UREA NITROGEN (BEAKER) (test cewn=518) 16 mg/dL 7-21 CREATININE (BEAKER) (test gqga=733) 0.85 mg/dL 0.57-1.25 GLUCOSE RANDOM (BEAKER) (test iyxt=972) 106 mg/dL 70-105 CALCIUM (BEAKER) (test nzfc=369) 9.2 mg/dL 8.4-10.2 EGFR (BEAKER) (test rhns=0407) 70 mL/min/1.73 sq m ESTIMATED GFR IS NOT ACCURATE CREATININE CLEARANCE IN PREDICTING GLOMERULAR FILTRATION RATE. ESTIMATED GFR IS NOT APPLICABLE FOR DIALYSIS PATIENTS. CBC (HEMOGRAM ONLY)2018-03-21 06:27:00* Test Item Value Reference Range Comments WHITE BLOOD CELL COUNT (BEAKER) (test apyr=805) 7.6 K/ L 3.5-10.5 RED BLOOD CELL COUNT (BEAKER) (test ujld=993) 2.89 M/ L 3.93-5.22 HEMOGLOBIN (BEAKER) (test dfxp=486) 8.8 GM/DL 11.2-15.7 HEMATOCRIT (BEAKER) (test jatw=779) 26.4 % 34.1-44.9 MEAN CORPUSCULAR VOLUME (BEAKER) (test oieo=366) 91.3 fL 79.4-94.8 MEAN CORPUSCULAR HEMOGLOBIN (BEAKER) (test twes=505) 30.4 pg 25.6-32.2 MEAN CORPUSCULAR HEMOGLOBIN CONC (BEAKER) (test xdps=993) 33.3 GM/DL 32.2-35.5 RED CELL DISTRIBUTION WIDTH (BEAKER) (test gery=775) 14.5 % 11.7-14.4 PLATELET COUNT (BEAKER) (test vdxf=895) 287 K/CU MM 150-450 MEAN PLATELET VOLUME (BEAKER) (test emsa=285) 9.0 fL 9.4-12.3 NUCLEATED RED BLOOD CELLS (BEAKER) (test kbkh=477) 0 /100 WBC 0-0 POCT-GLUCOSE [id number] 05:44:00* Test Item Value Reference Range Comments POC-GLUCOSE METER (BEAKER) (test csbf=5726) 112 mg/dL 70-110 TESTED AT [facility] [address] [facility] [address] POCT-GLUCOSE [id number] 20:10:00* Test Item Value Reference Range Comments POC-GLUCOSE METER (BEAKER) (test rppg=8428) 158 mg/dL 70-110 TESTED AT [place] [address]130 POCT-GLUCOSE [id number] 17:42:00* Test Item Value Reference Range Comments POC-GLUCOSE METER (BEAKER) (test ccxq=8334) 134 mg/dL 70-110 TESTED AT [place] [address] POCT-GLUCOSE [id number] 12:31:00* Test Item Value Reference Range Comments POC-GLUCOSE METER (BEAKER) (test qjtm=2876) 140 mg/dL 70-110 TESTED AT [place] [address] URINE [id number] 11:54:00* Test Item Value Reference Range Comments CULTURE (BEAKER) (test jlhm=5536) ESCHERICHIA COLI >100,000 col/mL Escherichia coli Amikacin (test code=1) Ampicillin + Sulbactam (test code=6) Aztreonam (test code=32) Cefepime (test code=51) Cefoxitin (test code=68) Ceftazidime (test code=27) Ceftriaxone (test code=52) Ertapenem (test code=38) Gentamicin (test code=18) Levofloxacin (test code=22) Meropenem (test code=34) Nitrofurantoin (test code=23) Piperacillin + Tazobactam (test code=29) Tetracycline (test code=2) Tobramycin (test code=25) Trimethoprim + Sulfamethoxazole (test code=47) POCT-GLUCOSE [id number] 08:21:00* Test Item Value Reference Range Comments POC-GLUCOSE METER (BEAKER) (test yshg=8540) 115 mg/dL 70-110 TESTED AT [place] [address] [id number] 05:21:00* Test Item Value Reference Range Comments MAGNESIUM (BEAKER) (test cbvr=766) 2.0 mg/dL 1.6-2.6 BASIC METABOLIC [id number] 05:21:00* Test Item Value Reference Range Comments SODIUM (BEAKER) (test zoco=576) 129 meq/L 136-145 POTASSIUM (BEAKER) (test wpyd=726) 3.4 meq/L 3.5-5.1 CHLORIDE (BEAKER) (test tlnh=684) 94 meq/L 98-107 CO2 (BEAKER) (test eifc=088) 24 meq/L 22-29 BLOOD UREA NITROGEN (BEAKER) (test zkmp=460) 21 mg/dL 7-21 CREATININE (BEAKER) (test aziy=554) 0.84 mg/dL 0.57-1.25 GLUCOSE RANDOM (BEAKER) (test ctje=264) 106 mg/dL 70-105 CALCIUM (BEAKER) (test cmrm=819) 9.1 mg/dL 8.4-10.2 EGFR (BEAKER) (test ezgd=2359) 71 mL/min/1.73 sq m ESTIMATED GFR IS NOT ACCURATE CREATININE CLEARANCE IN PREDICTING GLOMERULAR FILTRATION RATE. ESTIMATED GFR IS NOT APPLICABLE FOR DIALYSIS PATIENTS. POCT-GLUCOSE [id number] 22:26:00* Test Item Value Reference Range Comments POC-GLUCOSE METER (BEAKER) (test keyi=8384) 129 mg/dL 70-110 TESTED AT [address] [address] POCT-GLUCOSE [id number] 15:51:00* Test Item Value Reference Range Comments POC-GLUCOSE METER (BEAKER) (test svyu=9562) 216 mg/dL 70-110 TESTED AT [address] [address] POCT-GLUCOSE [id number] 11:19:00* Test Item Value Reference Range Comments POC-GLUCOSE METER (BEAKER) (test fpse=4363) 150 mg/dL 70-110 TESTED AT [address] [address] [id number] 06:25:00* Test Item Value Reference Range Comments MAGNESIUM (BEAKER) (test avot=023) 1.9 mg/dL 1.6-2.6 BASIC METABOLIC [id number] 06:25:00* Test Item Value Reference Range Comments SODIUM (BEAKER) (test pgzr=175) 130 meq/L 136-145 POTASSIUM (BEAKER) (test hjrr=808) 3.5 meq/L 3.5-5.1 CHLORIDE (BEAKER) (test jayw=935) 94 meq/L 98-107 CO2 (BEAKER) (test enlm=706) 24 meq/L 22-29 BLOOD UREA NITROGEN (BEAKER) (test shik=233) 29 mg/dL 7-21 CREATININE (BEAKER) (test enwn=943) 0.93 mg/dL 0.57-1.25 GLUCOSE RANDOM (BEAKER) (test sflg=861) 97 mg/dL 70-105 CALCIUM (BEAKER) (test zthh=515) 9.4 mg/dL 8.4-10.2 EGFR (BEAKER) (test oxin=8811) 63 mL/min/1.73 sq m ESTIMATED GFR IS NOT ACCURATE CREATININE CLEARANCE IN PREDICTING GLOMERULAR FILTRATION RATE. ESTIMATED GFR IS NOT APPLICABLE FOR DIALYSIS PATIENTS. POCT-GLUCOSE [id number] 06:09:00* Test Item Value Reference Range Comments POC-GLUCOSE METER (BEAKER) (test dnyz=6325) 98 mg/dL 70-110 TESTED AT [address] [address] POCT-GLUCOSE [id number] 16:12:00* Test Item Value Reference Range Comments POC-GLUCOSE METER (BEAKER) (test njbt=3273) 130 mg/dL 70-110 TESTED AT [address] [address] POCT-GLUCOSE [id number] 11:33:00* Test Item Value Reference Range Comments POC-GLUCOSE METER (BEAKER) (test oiup=3968) 257 mg/dL 70-110 TESTED AT [address] [address] URINALYSIS W/ [id number] 07:31:00* Test Item Value Reference Range Comments COLOR (BEAKER) (test lvcy=104) Yellow CLARITY (BEAKER) (test vkrh=862) Hazy SPECIFIC GRAVITY UA (BEAKER) (test sunx=520) 1.014 1.001-1.035 PH UA (BEAKER) (test ajxk=843) 6.0 5.0-8.0 PROTEIN UA (BEAKER) (test hyou=459) 20 mg/dL Negative GLUCOSE UA (BEAKER) (test qekb=541) Negative Negative KETONES UA (BEAKER) (test qicj=369) Trace Negative BILIRUBIN UA (BEAKER) (test hyfj=844) Negative Negative BLOOD UA (BEAKER) (test uzid=826) Negative Negative NITRITE UA (BEAKER) (test httb=421) Negative Negative LEUKOCYTE ESTERASE UA (BEAKER) (test zqfj=119) Large Negative UROBILINOGEN UA (BEAKER) (test edoc=914) 0.2 mg/dL 0.2-1.0 RBC UA (BEAKER) (test copx=194) 3 /HPF WBC UA (BEAKER) (test hsnr=057) 109 /HPF BACTERIA (BEAKER) (test wqzb=508) Occasional SQUAMOUS EPITHELIAL (BEAKER) (test qkdd=683) 25 /HPF SOURCE(BEAKER) (test joac=6395) [id number] 06:47:00* Test Item Value Reference Range Comments MAGNESIUM (BEAKER) (test wksi=898) 2.1 mg/dL 1.6-2.6 BASIC METABOLIC [id number] 06:47:00* Test Item Value Reference Range Comments SODIUM (BEAKER) (test jobp=479) 130 meq/L 136-145 POTASSIUM (BEAKER) (test hdap=893) 3.9 meq/L 3.5-5.1 CHLORIDE (BEAKER) (test qgsk=411) 94 meq/L 98-107 CO2 (BEAKER) (test kkdh=789) 25 meq/L 22-29 BLOOD UREA NITROGEN (BEAKER) (test mkcy=539) 32 mg/dL 7-21 CREATININE (BEAKER) (test nzrs=755) 0.93 mg/dL 0.57-1.25 GLUCOSE RANDOM (BEAKER) (test mray=321) 93 mg/dL 70-105 CALCIUM (BEAKER) (test tveq=560) 9.4 mg/dL 8.4-10.2 EGFR (BEAKER) (test quse=5130) 63 mL/min/1.73 sq m ESTIMATED GFR IS NOT ACCURATE CREATININE CLEARANCE IN PREDICTING GLOMERULAR FILTRATION RATE. ESTIMATED GFR IS NOT APPLICABLE FOR DIALYSIS PATIENTS. POCT-GLUCOSE [id number] 06:22:00* Test Item Value Reference Range Comments POC-GLUCOSE METER (BEAKER) (test ouvx=5023) 99 mg/dL 70-110 TESTED AT [facility] [address] [facility] [address] CBC (HEMOGRAM ONLY)2018-03-18 06:04:00* Test Item Value Reference Range Comments WHITE BLOOD CELL COUNT (BEAKER) (test ivhu=808) 10.2 K/ L 3.5-10.5 RED BLOOD CELL COUNT (BEAKER) (test cdoq=543) 3.03 M/ L 3.93-5.22 HEMOGLOBIN (BEAKER) (test xjlh=736) 9.2 GM/DL 11.2-15.7 HEMATOCRIT (BEAKER) (test fece=734) 27.9 % 34.1-44.9 MEAN CORPUSCULAR VOLUME (BEAKER) (test lqzr=468) 92.1 fL 79.4-94.8 MEAN CORPUSCULAR HEMOGLOBIN (BEAKER) (test xewz=589) 30.4 pg 25.6-32.2 MEAN CORPUSCULAR HEMOGLOBIN CONC (BEAKER) (test fjwx=003) 33.0 GM/DL 32.2-35.5 RED CELL DISTRIBUTION WIDTH (BEAKER) (test htlg=172) 14.9 % 11.7-14.4 PLATELET COUNT (BEAKER) (test gpst=946) 256 K/CU MM 150-450 MEAN PLATELET VOLUME (BEAKER) (test qoag=351) 9.3 fL 9.4-12.3 NUCLEATED RED BLOOD CELLS (BEAKER) (test nupd=978) 0 /100 WBC 0-0 POCT-GLUCOSE [id number] 21:35:00* Test Item Value Reference Range Comments POC-GLUCOSE METER (BEAKER) (test bthg=1175) 110 mg/dL 70-110 TESTED AT [place] [address]130 POCT-GLUCOSE [id number] 16:37:00* Test Item Value Reference Range Comments POC-GLUCOSE METER (BEAKER) (test aihw=7734) 121 mg/dL 70-110 TESTED AT [place] [address]130 POCT-GLUCOSE [id number] 12:02:00* Test Item Value Reference Range Comments POC-GLUCOSE METER (BEAKER) (test ldew=8692) 112 mg/dL 70-110 TESTED AT [place] [address]130 [id number] 03:17:00* Test Item Value Reference Range Comments MAGNESIUM (BEAKER) (test xoji=382) 2.1 mg/dL 1.6-2.6 BASIC METABOLIC [id number] 03:17:00* Test Item Value Reference Range Comments SODIUM (BEAKER) (test zvme=475) 129 meq/L 136-145 POTASSIUM (BEAKER) (test ubgf=851) 4.3 meq/L 3.5-5.1 CHLORIDE (BEAKER) (test aqzk=774) 92 meq/L 98-107 CO2 (BEAKER) (test yzgr=480) 27 meq/L 22-29 BLOOD UREA NITROGEN (BEAKER) (test xaap=684) 29 mg/dL 7-21 CREATININE (BEAKER) (test otpl=327) 0.87 mg/dL 0.57-1.25 GLUCOSE RANDOM (BEAKER) (test pyrw=076) 116 mg/dL 70-105 CALCIUM (BEAKER) (test zyja=044) 9.7 mg/dL 8.4-10.2 EGFR (BEAKER) (test obno=0393) 68 mL/min/1.73 sq m ESTIMATED GFR IS NOT ACCURATE CREATININE CLEARANCE IN PREDICTING GLOMERULAR FILTRATION RATE. ESTIMATED GFR IS NOT APPLICABLE FOR DIALYSIS PATIENTS. POCT-GLUCOSE [id number] 21:13:00* Test Item Value Reference Range Comments POC-GLUCOSE METER (BEAKER) (test ukzl=9577) 131 mg/dL 70-110 TESTED AT [address] [address] POCT-GLUCOSE [id number] 18:20:00* Test Item Value Reference Range Comments POC-GLUCOSE METER (BEAKER) (test rrei=4714) 112 mg/dL 70-110 TESTED AT [address] [address] POCT-GLUCOSE [id number] 12:20:00* Test Item Value Reference Range Comments POC-GLUCOSE METER (BEAKER) (test zhrg=7984) 131 mg/dL 70-110 TESTED AT [address] [address] POCT-GLUCOSE [id number] 07:54:00* Test Item Value Reference Range Comments POC-GLUCOSE METER (BEAKER) (test duov=0891) 141 mg/dL 70-110 TESTED AT [address] [address] POCT-GLUCOSE [id number] 06:12:00* Test Item Value Reference Range Comments POC-GLUCOSE METER (BEAKER) (test dhvx=7452) 163 mg/dL 70-110 TESTED AT [place] [address]130 [id number] 05:55:00* Test Item Value Reference Range Comments MAGNESIUM (BEAKER) (test ebph=857) 2.1 mg/dL 1.6-2.6 BASIC METABOLIC [id number] 05:55:00* Test Item Value Reference Range Comments SODIUM (BEAKER) (test ibnv=307) 129 meq/L 136-145 POTASSIUM (BEAKER) (test qexi=052) 3.9 meq/L 3.5-5.1 CHLORIDE (BEAKER) (test ueym=325) 92 meq/L 98-107 CO2 (BEAKER) (test leen=521) 27 meq/L 22-29 BLOOD UREA NITROGEN (BEAKER) (test epzd=665) 35 mg/dL 7-21 CREATININE (BEAKER) (test tjew=897) 0.81 mg/dL 0.57-1.25 GLUCOSE RANDOM (BEAKER) (test dnvp=612) 122 mg/dL 70-105 CALCIUM (BEAKER) (test isbn=578) 8.9 mg/dL 8.4-10.2 EGFR (BEAKER) (test pqwo=8783) 74 mL/min/1.73 sq m ESTIMATED GFR IS NOT ACCURATE CREATININE CLEARANCE IN PREDICTING GLOMERULAR FILTRATION RATE. ESTIMATED GFR IS NOT APPLICABLE FOR DIALYSIS PATIENTS. POCT-GLUCOSE [id number] 23:56:00* Test Item Value Reference Range Comments POC-GLUCOSE METER (BEAKER) (test ftou=1242) 140 mg/dL 70-110 TESTED AT [address] [address] POCT-GLUCOSE [id number] 18:24:00* Test Item Value Reference Range Comments POC-GLUCOSE METER (BEAKER) (test mwjp=3514) 140 mg/dL 70-110 TESTED AT [address] [address] CBC (HEMOGRAM ONLY)2018-03-15 14:28:00* Test Item Value Reference Range Comments WHITE BLOOD CELL COUNT (BEAKER) (test yrtq=140) 9.1 K/ L 3.5-10.5 RED BLOOD CELL COUNT (BEAKER) (test jefc=691) 2.91 M/ L 3.93-5.22 HEMOGLOBIN (BEAKER) (test zwba=933) 8.9 GM/DL 11.2-15.7 HEMATOCRIT (BEAKER) (test tckh=363) 27.7 % 34.1-44.9 MEAN CORPUSCULAR VOLUME (BEAKER) (test lepp=159) 95.2 fL 79.4-94.8 MEAN CORPUSCULAR HEMOGLOBIN (BEAKER) (test hoel=648) 30.6 pg 25.6-32.2 MEAN CORPUSCULAR HEMOGLOBIN CONC (BEAKER) (test jsbi=665) 32.1 GM/DL 32.2-35.5 RED CELL DISTRIBUTION WIDTH (BEAKER) (test ymat=762) 15.8 % 11.7-14.4 PLATELET COUNT (BEAKER) (test tkns=277) 221 K/CU MM 150-450 MEAN PLATELET VOLUME (BEAKER) (test hsjb=966) 10.2 fL 9.4-12.3 NUCLEATED RED BLOOD CELLS (BEAKER) (test snke=115) 0 /100 WBC 0-0 POCT-GLUCOSE [id number] 12:33:00* Test Item Value Reference Range Comments POC-GLUCOSE METER (BEAKER) (test ccxa=5270) 173 mg/dL 70-110 TESTED AT [place] [id number] [facility] [address] POCT-GLUCOSE [id number] 06:15:00* Test Item Value Reference Range Comments POC-GLUCOSE METER (BEAKER) (test nkvb=5098) 137 mg/dL 70-110 TESTED AT [address] [address] [id number] 03:40:00* Test Item Value Reference Range Comments MAGNESIUM (BEAKER) (test yytj=206) 2.1 mg/dL 1.6-2.6 BASIC METABOLIC [id number] 03:40:00* Test Item Value Reference Range Comments SODIUM (BEAKER) (test aarp=996) 132 meq/L 136-145 POTASSIUM (BEAKER) (test hoak=836) 3.7 meq/L 3.5-5.1 CHLORIDE (BEAKER) (test nsmj=654) 93 meq/L 98-107 CO2 (BEAKER) (test pbgl=530) 28 meq/L 22-29 BLOOD UREA NITROGEN (BEAKER) (test amgz=986) 41 mg/dL 7-21 CREATININE (BEAKER) (test razd=798) 0.81 mg/dL 0.57-1.25 GLUCOSE RANDOM (BEAKER) (test dhdm=509) 118 mg/dL 70-105 CALCIUM (BEAKER) (test pgur=048) 9.1 mg/dL 8.4-10.2 EGFR (BEAKER) (test shyk=9317) 74 mL/min/1.73 sq m ESTIMATED GFR IS NOT ACCURATE CREATININE CLEARANCE IN PREDICTING GLOMERULAR FILTRATION RATE. ESTIMATED GFR IS NOT APPLICABLE FOR DIALYSIS PATIENTS. POCT-GLUCOSE [id number] 00:14:00* Test Item Value Reference Range Comments POC-GLUCOSE METER (BEAKER) (test dzvp=2578) 136 mg/dL 70-110 TESTED AT [facility] [address] [facility] [address] POCT-GLUCOSE [id number] 12:10:00* Test Item Value Reference Range Comments POC-GLUCOSE METER (BEAKER) (test eatw=7488) 153 mg/dL 70-110 TESTED AT [place] [id number] [facility] [address] POCT-GLUCOSE [id number] 06:09:00* Test Item Value Reference Range Comments POC-GLUCOSE METER (BEAKER) (test xapl=6165) 133 mg/dL 70-110 TESTED AT [facility] [address] [facility] [address] [id number] 05:59:00* Test Item Value Reference Range Comments MAGNESIUM (BEAKER) (test syyv=109) 2.1 mg/dL 1.6-2.6 BASIC METABOLIC [id number] 05:59:00* Test Item Value Reference Range Comments SODIUM (BEAKER) (test plxq=136) 134 meq/L 136-145 POTASSIUM (BEAKER) (test lzxz=685) 3.8 meq/L 3.5-5.1 CHLORIDE (BEAKER) (test pfdq=355) 95 meq/L 98-107 CO2 (BEAKER) (test xsri=654) 25 meq/L 22-29 BLOOD UREA NITROGEN (BEAKER) (test htxb=873) 48 mg/dL 7-21 CREATININE (BEAKER) (test zeyv=499) 0.94 mg/dL 0.57-1.25 GLUCOSE RANDOM (BEAKER) (test mdfk=912) 128 mg/dL 70-105 CALCIUM (BEAKER) (test nhir=912) 9.4 mg/dL 8.4-10.2 EGFR (BEAKER) (test aewh=7540) 63 mL/min/1.73 sq m ESTIMATED GFR IS NOT ACCURATE CREATININE CLEARANCE IN PREDICTING GLOMERULAR FILTRATION RATE. ESTIMATED GFR IS NOT APPLICABLE FOR DIALYSIS PATIENTS. POCT-GLUCOSE [id number] 23:55:00* Test Item Value Reference Range Comments POC-GLUCOSE METER (BEAKER) (test zqch=1898) 143 mg/dL 70-110 TESTED AT [address] [address] POCT-GLUCOSE [id number] 17:29:00* Test Item Value Reference Range Comments POC-GLUCOSE METER (BEAKER) (test ulrm=8834) 141 mg/dL 70-110 TESTED AT [address] [address] POCT-GLUCOSE [id number] 11:41:00* Test Item Value Reference Range Comments POC-GLUCOSE METER (BEAKER) (test khkj=8854) 209 mg/dL 70-110 TESTED AT [address] [address] POCT-GLUCOSE [id number] 06:28:00* Test Item Value Reference Range Comments POC-GLUCOSE METER (BEAKER) (test kjdg=7325) 156 mg/dL 70-110 TESTED AT [address] [address] [id number] 04:47:00* Test Item Value Reference Range Comments MAGNESIUM (BEAKER) (test boev=721) 2.3 mg/dL 1.6-2.6 BASIC METABOLIC [id number] 04:47:00* Test Item Value Reference Range Comments SODIUM (BEAKER) (test phlr=023) 135 meq/L 136-145 POTASSIUM (BEAKER) (test akxn=369) 3.9 meq/L 3.5-5.1 CHLORIDE (BEAKER) (test ptyv=353) 96 meq/L 98-107 CO2 (BEAKER) (test ymkg=199) 28 meq/L 22-29 BLOOD UREA NITROGEN (BEAKER) (test xksq=267) 54 mg/dL 7-21 CREATININE (BEAKER) (test iuty=158) 1.00 mg/dL 0.57-1.25 GLUCOSE RANDOM (BEAKER) (test ssbg=787) 128 mg/dL 70-105 CALCIUM (BEAKER) (test bkhu=531) 9.5 mg/dL 8.4-10.2 EGFR (BEAKER) (test ated=0392) 58 mL/min/1.73 sq m ESTIMATED GFR IS NOT ACCURATE CREATININE CLEARANCE IN PREDICTING GLOMERULAR FILTRATION RATE. ESTIMATED GFR IS NOT APPLICABLE FOR DIALYSIS PATIENTS. RAD, CHEST, 1 VIEW, NON [id number] 04:11:00Reason for exam:->Resp failShould this be performed at the bedside?->YesFINAL REPORT EXAMINATION: AP PORTABLE CHEST RADIOGRAPH CLINICAL INDICATION: Respiratory failure IMPRESSION: Compared with March 05, 2018. Tip of the tracheostomy tube projects over the midline at the level of the clavicles. A new segment of catheter tubing projects over the right upper extremity and right scapula which may reflect interval placement of a central line. Alternatively the finding may reflect catheter tubing which is external to the patient. The enlarged heart and prominent thoracic aorta are grossly stable. Scattered reticular and more confluence patchy opacities are again noted in both lungs, most conspicuous at the lung bases. No definite evidence of new lung consolidation. The superimposed bilateral pleural abnormalities are also stable and may reflect pleural thickening and/or effusions. A subtle crescentic radiolucency projects along the peripheral margin of the left upper lobe. Artifact versus a tiny new pneumothorax. Consider short-term follow-up imaging surveillance. Signed: Richard Valdezepmarcos Verified Date/Time: 03/13/2018 04:11:24 Reading Location: [address] Reading Room -GLUCOSE [id number] 23:44:00* Test Item Value Reference Range Comments POC-GLUCOSE METER (BEAKER) (test ocme=9404) 164 mg/dL 70-110 TESTED AT [facility] [address] [facility] [address] POCT-GLUCOSE [id number] 17:49:00* Test Item Value Reference Range Comments POC-GLUCOSE METER (BEAKER) (test bbuq=6682) 139 mg/dL 70-110 TESTED AT [facility] [address] [facility] [address] CBC (HEMOGRAM ONLY)2018-03-12 14:44:00* Test Item Value Reference Range Comments WHITE BLOOD CELL COUNT (BEAKER) (test bvbg=316) 9.8 K/ L 3.5-10.5 RED BLOOD CELL COUNT (BEAKER) (test rcjs=588) 2.90 M/ L 3.93-5.22 HEMOGLOBIN (BEAKER) (test coqi=486) 9.0 GM/DL 11.2-15.7 HEMATOCRIT (BEAKER) (test lfjz=590) 27.3 % 34.1-44.9 MEAN CORPUSCULAR VOLUME (BEAKER) (test upbn=476) 94.1 fL 79.4-94.8 MEAN CORPUSCULAR HEMOGLOBIN (BEAKER) (test twbt=265) 31.0 pg 25.6-32.2 MEAN CORPUSCULAR HEMOGLOBIN CONC (BEAKER) (test lniv=875) 33.0 GM/DL 32.2-35.5 RED CELL DISTRIBUTION WIDTH (BEAKER) (test szzk=122) 15.9 % 11.7-14.4 PLATELET COUNT (BEAKER) (test plrb=759) 210 K/CU MM 150-450 MEAN PLATELET VOLUME (BEAKER) (test pugx=281) 9.4 fL 9.4-12.3 NUCLEATED RED BLOOD CELLS (BEAKER) (test vazk=434) 0 /100 WBC 0-0 POCT-GLUCOSE [id number] 11:54:00* Test Item Value Reference Range Comments POC-GLUCOSE METER (BEAKER) (test vprh=3326) 140 mg/dL 70-110 TESTED AT [place] [id number] [facility] [address] POCT-GLUCOSE [id number] 06:06:00* Test Item Value Reference Range Comments POC-GLUCOSE METER (BEAKER) (test iwys=7108) 164 mg/dL 70-110 TESTED AT [address] [address] [id number] 05:03:00* Test Item Value Reference Range Comments MAGNESIUM (BEAKER) (test mryz=662) 2.3 mg/dL 1.6-2.6 BASIC METABOLIC [id number] 05:03:00* Test Item Value Reference Range Comments SODIUM (BEAKER) (test jegu=377) 138 meq/L 136-145 POTASSIUM (BEAKER) (test gxec=562) 3.8 meq/L 3.5-5.1 CHLORIDE (BEAKER) (test dmvm=641) 97 meq/L 98-107 CO2 (BEAKER) (test qais=410) 28 meq/L 22-29 BLOOD UREA NITROGEN (BEAKER) (test ilot=714) 56 mg/dL 7-21 CREATININE (BEAKER) (test gpqo=145) 1.09 mg/dL 0.57-1.25 GLUCOSE RANDOM (BEAKER) (test obev=111) 136 mg/dL 70-105 CALCIUM (BEAKER) (test vprk=392) 9.6 mg/dL 8.4-10.2 EGFR (BEAKER) (test lkaa=8163) 53 mL/min/1.73 sq m ESTIMATED GFR IS NOT ACCURATE CREATININE CLEARANCE IN PREDICTING GLOMERULAR FILTRATION RATE. ESTIMATED GFR IS NOT APPLICABLE FOR DIALYSIS PATIENTS. POCT-GLUCOSE [id number] 00:00:00* Test Item Value Reference Range Comments POC-GLUCOSE METER (BEAKER) (test jmfx=2367) 156 mg/dL 70-110 TESTED AT [address] [address] POCT-GLUCOSE [id number] 18:02:00* Test Item Value Reference Range Comments POC-GLUCOSE METER (BEAKER) (test jpci=3102) 140 mg/dL 70-110 TESTED AT [place] [id number] [facility] [address] POCT-GLUCOSE [id number] 11:53:00* Test Item Value Reference Range Comments POC-GLUCOSE METER (BEAKER) (test ixga=0498) 147 mg/dL 70-110 TESTED AT [address] [address] POCT-GLUCOSE [id number] 07:26:00* Test Item Value Reference Range Comments POC-GLUCOSE METER (BEAKER) (test brcf=3693) 147 mg/dL 70-110 TESTED AT [address] [address] [id number] 06:31:00* Test Item Value Reference Range Comments MAGNESIUM (BEAKER) (test xqlz=765) 3.4 mg/dL 1.6-2.6 Specimen markedly hemolyzed FUNGUS CULTURE + [id number] 02:04:00* Test Item Value Reference Range Comments CULTURE (BEAKER) (test unpf=9177) No fungus isolated in 28 days FUNGUS SMEAR (BEAKER) (test fuou=1995) No fungi seen POCT-GLUCOSE [id number] 00:14:00* Test Item Value Reference Range Comments POC-GLUCOSE METER (BEAKER) (test ksng=7070) 146 mg/dL 70-110 TESTED AT [place] [id number] [facility] [address] POCT-GLUCOSE [id number] 18:02:00* Test Item Value Reference Range Comments POC-GLUCOSE METER (BEAKER) (test zjls=8832) 127 mg/dL 70-110 TESTED AT [address] [address] POCT-GLUCOSE [id number] 12:51:00* Test Item Value Reference Range Comments POC-GLUCOSE METER (BEAKER) (test ebkf=2559) 175 mg/dL 70-110 TESTED AT [address] [address] [id number] 05:44:00* Test Item Value Reference Range Comments MAGNESIUM (BEAKER) (test atre=275) 2.5 mg/dL 1.6-2.6 Specimen slightly hemolyzed BASIC METABOLIC [id number] 05:44:00* Test Item Value Reference Range Comments SODIUM (BEAKER) (test atrr=224) 134 meq/L 136-145 POTASSIUM (BEAKER) (test gsod=282) 4.5 meq/L 3.5-5.1 Specimen slightly hemolyzed CHLORIDE (BEAKER) (test tqnl=785) 93 meq/L 98-107 CO2 (BEAKER) (test gozr=713) 28 meq/L 22-29 BLOOD UREA NITROGEN (BEAKER) (test buyl=140) 55 mg/dL 7-21 CREATININE (BEAKER) (test jsng=766) 1.26 mg/dL 0.57-1.25 Specimen slightly hemolyzed GLUCOSE RANDOM (BEAKER) (test sotf=223) 132 mg/dL 70-105 CALCIUM (BEAKER) (test hamr=663) 9.7 mg/dL 8.4-10.2 EGFR (BEAKER) (test ganz=9058) 45 mL/min/1.73 sq m ESTIMATED GFR IS NOT ACCURATE CREATININE CLEARANCE IN PREDICTING GLOMERULAR FILTRATION RATE. ESTIMATED GFR IS NOT APPLICABLE FOR DIALYSIS PATIENTS. POCT-GLUCOSE [id number] 05:39:00* Test Item Value Reference Range Comments POC-GLUCOSE METER (BEAKER) (test xgps=1221) 140 mg/dL 70-110 TESTED AT [facility] [address] [facility] [address] POCT-GLUCOSE [id number] 00:09:00* Test Item Value Reference Range Comments POC-GLUCOSE METER (BEAKER) (test menw=5594) 147 mg/dL 70-110 TESTED AT [address] [address] POCT-GLUCOSE [id number] 17:41:00* Test Item Value Reference Range Comments POC-GLUCOSE METER (BEAKER) (test ykax=7552) 155 mg/dL 70-110 TESTED AT [address] [address] POCT-GLUCOSE [id number] 12:03:00* Test Item Value Reference Range Comments POC-GLUCOSE METER (BEAKER) (test diyb=0616) 127 mg/dL 70-110 TESTED AT [address] [address] [id number] 11:14:00* Test Item Value Reference Range Comments POTASSIUM (BEAKER) (test llyh=223) 4.6 meq/L 3.5-5.1 Specimen slightly hemolyzed CBC (HEMOGRAM ONLY)2018-03-09 11:04:00* Test Item Value Reference Range Comments WHITE BLOOD CELL COUNT (BEAKER) (test seuv=153) 8.5 K/ L 3.5-10.5 RED BLOOD CELL COUNT (BEAKER) (test qfeu=271) 3.06 M/ L 3.93-5.22 HEMOGLOBIN (BEAKER) (test ldiq=171) 9.3 GM/DL 11.2-15.7 HEMATOCRIT (BEAKER) (test lcvs=428) 28.9 % 34.1-44.9 MEAN CORPUSCULAR VOLUME (BEAKER) (test mijo=624) 94.4 fL 79.4-94.8 MEAN CORPUSCULAR HEMOGLOBIN (BEAKER) (test ppjx=367) 30.4 pg 25.6-32.2 MEAN CORPUSCULAR HEMOGLOBIN CONC (BEAKER) (test ggyo=736) 32.2 GM/DL 32.2-35.5 RED CELL DISTRIBUTION WIDTH (BEAKER) (test jkun=302) 16.2 % 11.7-14.4 PLATELET COUNT (BEAKER) (test hfng=054) 235 K/CU MM 150-450 MEAN PLATELET VOLUME (BEAKER) (test lyyj=850) 10.1 fL 9.4-12.3 NUCLEATED RED BLOOD CELLS (BEAKER) (test imai=827) 0 /100 WBC 0-0 [id number] 05:53:00* Test Item Value Reference Range Comments MAGNESIUM (BEAKER) (test uwqo=238) 2.6 mg/dL 1.6-2.6 BASIC METABOLIC [id number] 05:53:00* Test Item Value Reference Range Comments SODIUM (BEAKER) (test sler=076) 131 meq/L 136-145 POTASSIUM (BEAKER) (test hogd=916) 3.8 meq/L 3.5-5.1 CHLORIDE (BEAKER) (test fshn=350) 90 meq/L 98-107 CO2 (BEAKER) (test amho=550) 26 meq/L 22-29 BLOOD UREA NITROGEN (BEAKER) (test vhfh=134) 52 mg/dL 7-21 CREATININE (BEAKER) (test qwmt=016) 1.19 mg/dL 0.57-1.25 GLUCOSE RANDOM (BEAKER) (test lxja=731) 131 mg/dL 70-105 CALCIUM (BEAKER) (test phjx=574) 10.1 mg/dL 8.4-10.2 EGFR (BEAKER) (test zklx=2878) 48 mL/min/1.73 sq m ESTIMATED GFR IS NOT ACCURATE CREATININE CLEARANCE IN PREDICTING GLOMERULAR FILTRATION RATE. ESTIMATED GFR IS NOT APPLICABLE FOR DIALYSIS PATIENTS. POCT-GLUCOSE [id number] 05:41:00* Test Item Value Reference Range Comments POC-GLUCOSE METER (BEAKER) (test lmxk=1668) 142 mg/dL 70-110 TESTED AT [place] [id number] [facility] [address] U/S, EXTREMITY (NON-VASCULAR), RIGHT, [id number] 03:28:00Reason for exam:->Patient complaining of sharp pain at the right medial thigh where the saphenous vein was harvested. Please check for collection/Should this be performed at the bedside?->YesFINAL REPORT U/S, EXTREMITY (NON-VASCULAR), RIGHT, LIMITED INDICATION: Patient complaining of sharp pain at the right medial thigh where the saphenous vein was harvested. Please check for collection/ COMPARISON: None TECHNIQUE: Real-time grayscale and color Doppler sonographic examination of the right lower extremity area of interest along the medial thigh at the site of saphenous vein harvest. FINDINGS:Heterogeneous fluid collection is positioned near the center of the incision site but medial to the incision itself. Approximate measurements are 4.7 x 1.7 x 2.4 cm. IMPRESSION: Heterogeneous fluid collection medial to the midportion of the incision site. The appearance is nonspecific and may reflect resolving hematoma following saphenous vein harvest. Superimposed infection is not excluded. Signed: JR Lucas Robert MDReport Verified Date/Time: 03/09/2018 03:28:47 Reading Location: [facility] [address] [place] Body Reading Room -GLUCOSE [id number] 00:17:00* Test Item Value Reference Range Comments POC-GLUCOSE METER (BEAKER) (test ohjr=4727) 146 mg/dL 70-110 TESTED AT [address] [address] POCT-GLUCOSE [id number] 18:21:00* Test Item Value Reference Range Comments POC-GLUCOSE METER (BEAKER) (test piac=3185) 134 mg/dL 70-110 TESTED AT [address] [address] POCT-GLUCOSE [id number] 13:12:00* Test Item Value Reference Range Comments POC-GLUCOSE METER (BEAKER) (test hdlz=1447) 119 mg/dL 70-110 TESTED AT [address] [address] POCT-GLUCOSE [id number] 06:02:00* Test Item Value Reference Range Comments POC-GLUCOSE METER (BEAKER) (test ccpx=3226) 131 mg/dL 70-110 TESTED AT [address] [address] [id number] 04:18:00* Test Item Value Reference Range Comments MAGNESIUM (BEAKER) (test wbpo=689) 2.3 mg/dL 1.6-2.6 BASIC METABOLIC [id number] 04:18:00* Test Item Value Reference Range Comments SODIUM (BEAKER) (test wupc=960) 131 meq/L 136-145 POTASSIUM (BEAKER) (test qsoy=960) 3.8 meq/L 3.5-5.1 CHLORIDE (BEAKER) (test ltkx=511) 92 meq/L 98-107 CO2 (BEAKER) (test dfjt=386) 26 meq/L 22-29 BLOOD UREA NITROGEN (BEAKER) (test xoqo=086) 46 mg/dL 7-21 CREATININE (BEAKER) (test vkbh=874) 0.96 mg/dL 0.57-1.25 GLUCOSE RANDOM (BEAKER) (test skao=316) 124 mg/dL 70-105 CALCIUM (BEAKER) (test jrse=028) 9.1 mg/dL 8.4-10.2 EGFR (BEAKER) (test typu=7661) 61 mL/min/1.73 sq m ESTIMATED GFR IS NOT ACCURATE CREATININE CLEARANCE IN PREDICTING GLOMERULAR FILTRATION RATE. ESTIMATED GFR IS NOT APPLICABLE FOR DIALYSIS PATIENTS. POCT-GLUCOSE [id number] 00:18:00* Test Item Value Reference Range Comments POC-GLUCOSE METER (BEAKER) (test jcjg=8225) 136 mg/dL 70-110 TESTED AT [place] [address] POCT-GLUCOSE [id number] 18:04:00* Test Item Value Reference Range Comments POC-GLUCOSE METER (BEAKER) (test tbxi=3610) 112 mg/dL 70-110 TESTED AT [place] [id number] POCT-GLUCOSE [id number] 11:21:00* Test Item Value Reference Range Comments POC-GLUCOSE METER (BEAKER) (test jnzo=0598) 137 mg/dL 70-110 TESTED AT [place] [address]130 POCT-GLUCOSE [id number] 06:24:00* Test Item Value Reference Range Comments POC-GLUCOSE METER (BEAKER) (test dxnc=7958) 143 mg/dL 70-110 TESTED AT [place] [address] [id number] 05:15:00* Test Item Value Reference Range Comments MAGNESIUM (BEAKER) (test mmet=470) 2.3 mg/dL 1.6-2.6 BASIC METABOLIC [id number] 05:15:00* Test Item Value Reference Range Comments SODIUM (BEAKER) (test akog=308) 129 meq/L 136-145 POTASSIUM (BEAKER) (test wgwb=652) 4.2 meq/L 3.5-5.1 CHLORIDE (BEAKER) (test vejx=620) 92 meq/L 98-107 CO2 (BEAKER) (test fvhy=867) 26 meq/L 22-29 BLOOD UREA NITROGEN (BEAKER) (test kxjt=477) 45 mg/dL 7-21 CREATININE (BEAKER) (test vblf=885) 0.97 mg/dL 0.57-1.25 GLUCOSE RANDOM (BEAKER) (test vhlt=570) 124 mg/dL 70-105 CALCIUM (BEAKER) (test uncp=871) 9.2 mg/dL 8.4-10.2 EGFR (BEAKER) (test yhhp=9252) 60 mL/min/1.73 sq m ESTIMATED GFR IS NOT ACCURATE CREATININE CLEARANCE IN PREDICTING GLOMERULAR FILTRATION RATE. ESTIMATED GFR IS NOT APPLICABLE FOR DIALYSIS PATIENTS. POCT-GLUCOSE [id number] 03:45:00* Test Item Value Reference Range Comments POC-GLUCOSE METER (BEAKER) (test knac=4570) 131 mg/dL 70-110 TESTED AT [place] [id number] [facility] [address] POCT-GLUCOSE [id number] 19:02:00* Test Item Value Reference Range Comments POC-GLUCOSE METER (BEAKER) (test ytps=4622) 141 mg/dL 70-110 TESTED AT [address] [address] CBC (HEMOGRAM ONLY)2018-03-06 16:39:00* Test Item Value Reference Range Comments WHITE BLOOD CELL COUNT (BEAKER) (test bjmj=722) 7.9 K/ L 3.5-10.5 RED BLOOD CELL COUNT (BEAKER) (test sbfn=477) 2.96 M/ L 3.93-5.22 HEMOGLOBIN (BEAKER) (test hsxz=116) 9.2 GM/DL 11.2-15.7 HEMATOCRIT (BEAKER) (test ltqh=482) 27.7 % 34.1-44.9 MEAN CORPUSCULAR VOLUME (BEAKER) (test wusv=977) 93.6 fL 79.4-94.8 MEAN CORPUSCULAR HEMOGLOBIN (BEAKER) (test axwo=161) 31.1 pg 25.6-32.2 MEAN CORPUSCULAR HEMOGLOBIN CONC (BEAKER) (test cxsq=097) 33.2 GM/DL 32.2-35.5 RED CELL DISTRIBUTION WIDTH (BEAKER) (test iygr=849) 16.9 % 11.7-14.4 PLATELET COUNT (BEAKER) (test hmsa=507) 288 K/CU MM 150-450 MEAN PLATELET VOLUME (BEAKER) (test mndu=529) 9.8 fL 9.4-12.3 NUCLEATED RED BLOOD CELLS (BEAKER) (test ghkm=624) 0 /100 WBC 0-0 POCT-GLUCOSE [id number] 12:03:00* Test Item Value Reference Range Comments POC-GLUCOSE METER (BEAKER) (test vrwb=2006) 137 mg/dL 70-110 TESTED AT [address] [address] POCT-GLUCOSE [id number] 06:23:00* Test Item Value Reference Range Comments POC-GLUCOSE METER (BEAKER) (test qoef=5508) 164 mg/dL 70-110 TESTED AT [address] [address] [id number] 02:55:00* Test Item Value Reference Range Comments MAGNESIUM (BEAKER) (test ncap=065) 2.2 mg/dL 1.6-2.6 BASIC METABOLIC [id number] 02:55:00* Test Item Value Reference Range Comments SODIUM (BEAKER) (test ppuz=359) 131 meq/L 136-145 POTASSIUM (BEAKER) (test fcot=382) 4.0 meq/L 3.5-5.1 CHLORIDE (BEAKER) (test rcpk=587) 92 meq/L 98-107 CO2 (BEAKER) (test menh=596) 28 meq/L 22-29 BLOOD UREA NITROGEN (BEAKER) (test nzdr=284) 53 mg/dL 7-21 CREATININE (BEAKER) (test hgzz=865) 1.06 mg/dL 0.57-1.25 GLUCOSE RANDOM (BEAKER) (test ayap=412) 125 mg/dL 70-105 CALCIUM (BEAKER) (test osqs=003) 9.2 mg/dL 8.4-10.2 EGFR (BEAKER) (test uxey=1838) 54 mL/min/1.73 sq m ESTIMATED GFR IS NOT ACCURATE CREATININE CLEARANCE IN PREDICTING GLOMERULAR FILTRATION RATE. ESTIMATED GFR IS NOT APPLICABLE FOR DIALYSIS PATIENTS. POCT-GLUCOSE [id number] 00:08:00* Test Item Value Reference Range Comments POC-GLUCOSE METER (BEAKER) (test khhj=8123) 152 mg/dL 70-110 TESTED AT [address] [address] POCT-GLUCOSE [id number] 18:21:00* Test Item Value Reference Range Comments POC-GLUCOSE METER (BEAKER) (test djyv=1482) 126 mg/dL 70-110 TESTED AT [address] [address] POCT-GLUCOSE [id number] 12:48:00* Test Item Value Reference Range Comments POC-GLUCOSE METER (BEAKER) (test jgqi=2538) 137 mg/dL 70-110 TESTED AT [address] [address] RAD, CHEST, 1 VIEW, NON [id number] 08:10:00Reason for exam:->respiratory failureShould this be performed at the bedside?->YesIs the patient ?-> UnknownFINAL REPORT Chest dated 03/05/2018 COMPARISON: March 04, 2018 Clinical Information: respiratory failure Comment: Heart is enlarged. Pulmonary vasculature is indistinct. Interstitial disease is seen bilaterally suggestive of vascular congestion, pulmonary edema, or pneumonitis unchanged from prior study. No pleural effusion or pneumothorax is seen. Tracheostomy tube remains in place. Impression: No interval change. Signed: Jhonny Miner MDReport Verified Date/Time: 03/05/2018 08:10:18 Reading Location: [address] Ortho Consult Reading Room -GLUCOSE [id number] 06:40:00* Test Item Value Reference Range Comments POC-GLUCOSE METER (BEAKER) (test hxmh=9915) 130 mg/dL 70-110 TESTED AT [address] [address] TSH/FREE T4 IF [id number] 05:51:00* Test Item Value Reference Range Comments THYROID STIMULATING HORMONE (BEAKER) (test vero=573) 3.99 uIU/mL 0.35-4.94 [id number] 05:45:00* Test Item Value Reference Range Comments MAGNESIUM (BEAKER) (test hfdh=506) 2.3 mg/dL 1.6-2.6 BASIC METABOLIC [id number] 05:45:00* Test Item Value Reference Range Comments SODIUM (BEAKER) (test lbdh=706) 132 meq/L 136-145 POTASSIUM (BEAKER) (test hhte=296) 4.0 meq/L 3.5-5.1 CHLORIDE (BEAKER) (test mges=439) 92 meq/L 98-107 CO2 (BEAKER) (test bmdh=156) 28 meq/L 22-29 BLOOD UREA NITROGEN (BEAKER) (test xyzs=415) 55 mg/dL 7-21 CREATININE (BEAKER) (test clvh=190) 1.13 mg/dL 0.57-1.25 GLUCOSE RANDOM (BEAKER) (test ctwn=471) 136 mg/dL 70-105 CALCIUM (BEAKER) (test tqti=559) 9.2 mg/dL 8.4-10.2 EGFR (BEAKER) (test fbqm=1887) 51 mL/min/1.73 sq m ESTIMATED GFR IS NOT ACCURATE CREATININE CLEARANCE IN PREDICTING GLOMERULAR FILTRATION RATE. ESTIMATED GFR IS NOT APPLICABLE FOR DIALYSIS PATIENTS. POCT-GLUCOSE [id number] 00:21:00* Test Item Value Reference Range Comments POC-GLUCOSE METER (BEAKER) (test nwao=6953) 142 mg/dL 70-110 TESTED AT [place] [id number] [facility] [address] POCT-GLUCOSE [id number] 17:34:00* Test Item Value Reference Range Comments POC-GLUCOSE METER (BEAKER) (test nlzy=6694) 125 mg/dL 70-110 TESTED AT [place] [id number] [facility] [address] OCCULT BLOOD, [id number] 13:13:00* Test Item Value Reference Range Comments FECAL OCCULT BLOOD (BEAKER) (test dspe=087) Negative Negative POCT-GLUCOSE [id number] 11:43:00* Test Item Value Reference Range Comments POC-GLUCOSE METER (BEAKER) (test oxxt=0351) 122 mg/dL 70-110 TESTED AT [place] [id number] [facility] [address] RAD, CHEST, 1 VIEW, NON [id number] 07:22:00Reason for exam:->respiratory failureShould this be performed at the bedside?->YesIs the patient ?-> UnknownFINAL REPORT Chest, one view. HISTORY: Respiratory failure COMPARISON: 03/03/2018 IMPRESSION: Moderate interstitial edema. Trace left pleural effusion. Unchanged mild enlargement of the cardiomediastinal silhouette with tortuosity and ectasia of the thoracic aorta. No identifiable pneumothorax. Tracheostomy unchanged in position. Signed: Seth Merritt MDReport Verified Date/Time: 03/04/2018 07:22:32 Reading Location: [facility] B1 C013Y CT Body Reading Room [id number] 06:47:00* Test Item Value Reference Range Comments PHOSPHORUS (BEAKER) (test wmwp=424) 3.7 mg/dL 2.3-4.7 [id number] 06:47:00* Test Item Value Reference Range Comments MAGNESIUM (BEAKER) (test yfvb=706) 2.3 mg/dL 1.6-2.6 BASIC METABOLIC [id number] 06:47:00* Test Item Value Reference Range Comments SODIUM (BEAKER) (test rpva=161) 133 meq/L 136-145 POTASSIUM (BEAKER) (test lyip=103) 4.2 meq/L 3.5-5.1 CHLORIDE (BEAKER) (test dwki=719) 91 meq/L 98-107 CO2 (BEAKER) (test gzui=420) 29 meq/L 22-29 BLOOD UREA NITROGEN (BEAKER) (test mlhm=729) 50 mg/dL 7-21 CREATININE (BEAKER) (test jvaz=943) 1.17 mg/dL 0.57-1.25 GLUCOSE RANDOM (BEAKER) (test hcix=080) 133 mg/dL 70-105 CALCIUM (BEAKER) (test hkvw=010) 9.0 mg/dL 8.4-10.2 EGFR (BEAKER) (test nlub=3157) 49 mL/min/1.73 sq m ESTIMATED GFR IS NOT ACCURATE CREATININE CLEARANCE IN PREDICTING GLOMERULAR FILTRATION RATE. ESTIMATED GFR IS NOT APPLICABLE FOR DIALYSIS PATIENTS. HEPATIC FUNCTION [id number] 06:47:00* Test Item Value Reference Range Comments TOTAL PROTEIN (BEAKER) (test jwot=798) 6.3 gm/dL 6.0-8.3 ALBUMIN (BEAKER) (test jfqz=3538) 3.7 g/dL 3.5-5.0 BILIRUBIN TOTAL (BEAKER) (test agnq=243) 1.7 mg/dL 0.2-1.2 BILIRUBIN DIRECT (BEAKER) (test jrfq=816) 0.8 mg/dL 0.1-0.5 ALKALINE PHOSPHATASE (BEAKER) (test nsdj=816) 97 U/L 40-150 AST (SGOT) (BEAKER) (test vois=331) 34 U/L 5-34 ALT (SGPT) (BEAKER) (test zkmo=074) 54 U/L 6-55 POCT-GLUCOSE [id number] 06:25:00* Test Item Value Reference Range Comments POC-GLUCOSE METER (BEAKER) (test vnrc=6210) 123 mg/dL 70-110 TESTED AT [facility] [address] [facility] [address] PROTHROMBIN TIME/[id number] 06:20:00* Test Item Value Reference Range Comments PROTIME (BEAKER) (test zjat=305) 15.6 seconds 11.7-14.7 INR (BEAKER) (test aovp=399) 1.2 <=5.9 RECOMMENDED COUMADIN/WARFARIN INR THERAPY RANGESSTANDARD DOSE: 2.0 - 3.0 Inclu connie: PROPHYLAXIS for venous thrombosis, systemic embolization; TREATMENT for lupis ous thrombosis and/or pulmonary embolus.HIGH RISK: Target INR is 2.5-3.5 for pat ients with mechanical heart valves.CBC (HEMOGRAM ONLY)2018-03-04 06:09:00* Test Item Value Reference Range Comments WHITE BLOOD CELL COUNT (BEAKER) (test xetl=044) 10.0 K/ L 3.5-10.5 RED BLOOD CELL COUNT (BEAKER) (test uokh=267) 3.01 M/ L 3.93-5.22 HEMOGLOBIN (BEAKER) (test utvv=932) 9.3 GM/DL 11.2-15.7 HEMATOCRIT (BEAKER) (test amag=504) 28.7 % 34.1-44.9 MEAN CORPUSCULAR VOLUME (BEAKER) (test arfg=525) 95.3 fL 79.4-94.8 MEAN CORPUSCULAR HEMOGLOBIN (BEAKER) (test btgo=440) 30.9 pg 25.6-32.2 MEAN CORPUSCULAR HEMOGLOBIN CONC (BEAKER) (test ngzd=649) 32.4 GM/DL 32.2-35.5 RED CELL DISTRIBUTION WIDTH (BEAKER) (test ldpm=099) 18.1 % 11.7-14.4 PLATELET COUNT (BEAKER) (test pksa=032) 376 K/CU MM 150-450 MEAN PLATELET VOLUME (BEAKER) (test ryws=448) 10.1 fL 9.4-12.3 NUCLEATED RED BLOOD CELLS (BEAKER) (test fvyq=178) 0 /100 WBC 0-0 LACTIC ACID, ARTERIAL, WHOLE [id number] 06:06:00* Test Item Value Reference Range Comments LACTATE BLOOD ARTERIAL (2) (BEAKER) (test mhip=1248) 0.8 mmol/L 0.5-2.2 Effective 03/10/2016: Units/Reference Range ChangeNew: 0.5-2.2 mmol/L Previous: 5 -20 mg/dLCALCIUM, [id number] 05:54:00* Test Item Value Reference Range Comments CALCIUM IONIZED (BEAKER) (test haoi=314) 1.06 mmol/L 1.12-1.27 PH, BLOOD (BEAKER) (test ucdh=1394) 7.53 POCT-GLUCOSE [id number] 00:13:00* Test Item Value Reference Range Comments POC-GLUCOSE METER (BEAKER) (test tced=8542) 112 mg/dL 70-110 TESTED AT [address] [address] POCT-GLUCOSE [id number] 18:50:00* Test Item Value Reference Range Comments POC-GLUCOSE METER (BEAKER) (test gvpu=6525) 151 mg/dL 70-110 TESTED AT [address] [address] FUNGUS CULTURE + [id number] 15:13:00* Test Item Value Reference Range Comments CULTURE (BEAKER) (test wmmh=7747) No fungus isolated in 28 days FUNGUS SMEAR (BEAKER) (test tuxp=2062) No fungi seen POCT-GLUCOSE [id number] 12:12:00* Test Item Value Reference Range Comments POC-GLUCOSE METER (BEAKER) (test vwyy=2867) 161 mg/dL 70-110 TESTED AT [facility] [address] [facility] [address] CBC (HEMOGRAM ONLY)2018-03-03 11:04:00* Test Item Value Reference Range Comments WHITE BLOOD CELL COUNT (BEAKER) (test hbmk=600) 10.5 K/ L 3.5-10.5 RED BLOOD CELL COUNT (BEAKER) (test swtw=462) 3.22 M/ L 3.93-5.22 HEMOGLOBIN (BEAKER) (test vugy=103) 10.0 GM/DL 11.2-15.7 HEMATOCRIT (BEAKER) (test yasx=320) 30.3 % 34.1-44.9 MEAN CORPUSCULAR VOLUME (BEAKER) (test cuvq=835) 94.1 fL 79.4-94.8 MEAN CORPUSCULAR HEMOGLOBIN (BEAKER) (test hspx=907) 31.1 pg 25.6-32.2 MEAN CORPUSCULAR HEMOGLOBIN CONC (BEAKER) (test desx=424) 33.0 GM/DL 32.2-35.5 RED CELL DISTRIBUTION WIDTH (BEAKER) (test byuk=184) 18.6 % 11.7-14.4 PLATELET COUNT (BEAKER) (test dhdu=326) 414 K/CU MM 150-450 MEAN PLATELET VOLUME (BEAKER) (test lqqx=593) 9.4 fL 9.4-12.3 NUCLEATED RED BLOOD CELLS (BEAKER) (test gsgg=368) 0 /100 WBC 0-0 RAD, CHEST, 1 VIEW, NON [id number] 08:15:00Reason for exam:->respiratory failureShould this be performed at the bedside?->YesIs the patient ?-> UnknownFINAL REPORT Chest, one view. HISTORY: Respiratory failure COMPARISON: 03/02/2018 IMPRESSION: No significant change. Unchanged moderate interstitial edema and trace bilateral pleural effusions. No identifiable pneumothorax. Cardiomediastinal silhouette is mildly prominent but unchanged from prior examination. Signed: Seth Merritt MDReport Verified Date/Time: 03/03/2018 08:15:07 Reading Location: [facility] Diagnostic Imaging Reading Room - SLSWV F1 1120 [id number] 05:29:00* Test Item Value Reference Range Comments PHOSPHORUS (BEAKER) (test vhzj=732) 3.5 mg/dL 2.3-4.7 [id number] 05:29:00* Test Item Value Reference Range Comments MAGNESIUM (BEAKER) (test cixm=018) 2.3 mg/dL 1.6-2.6 BASIC METABOLIC [id number] 05:29:00* Test Item Value Reference Range Comments SODIUM (BEAKER) (test fcvv=463) 132 meq/L 136-145 POTASSIUM (BEAKER) (test eppz=837) 4.1 meq/L 3.5-5.1 CHLORIDE (BEAKER) (test huxd=654) 91 meq/L 98-107 CO2 (BEAKER) (test ouxz=964) 29 meq/L 22-29 BLOOD UREA NITROGEN (BEAKER) (test mpsc=400) 38 mg/dL 7-21 CREATININE (BEAKER) (test nctu=218) 1.08 mg/dL 0.57-1.25 GLUCOSE RANDOM (BEAKER) (test gqju=599) 136 mg/dL 70-105 CALCIUM (BEAKER) (test irxq=897) 8.9 mg/dL 8.4-10.2 EGFR (BEAKER) (test yrop=0716) 53 mL/min/1.73 sq m ESTIMATED GFR IS NOT ACCURATE CREATININE CLEARANCE IN PREDICTING GLOMERULAR FILTRATION RATE. ESTIMATED GFR IS NOT APPLICABLE FOR DIALYSIS PATIENTS. PROTHROMBIN TIME/[id number] 05:23:00* Test Item Value Reference Range Comments PROTIME (BEAKER) (test nbdl=492) 15.1 seconds 11.7-14.7 INR (BEAKER) (test ggih=364) 1.2 <=5.9 RECOMMENDED COUMADIN/WARFARIN INR THERAPY RANGESSTANDARD DOSE: 2.0 - 3.0 Inclu connie: PROPHYLAXIS for venous thrombosis, systemic embolization; TREATMENT for lupis ous thrombosis and/or pulmonary embolus.HIGH RISK: Target INR is 2.5-3.5 for pat ients with mechanical heart valves.LACTIC ACID, ARTERIAL, WHOLE [id number] 05:20:00* Test Item Value Reference Range Comments LACTATE BLOOD ARTERIAL (2) (BEAKER) (test bnhs=1893) 0.7 mmol/L 0.5-2.2 Effective 03/10/2016: Units/Reference Range ChangeNew: 0.5-2.2 mmol/L Previous: 5 -20 mg/dLCBC (HEMOGRAM ONLY)2018-03-03 05:11:00* Test Item Value Reference Range Comments WHITE BLOOD CELL COUNT (BEAKER) (test bhfw=702) 9.6 K/ L 3.5-10.5 RED BLOOD CELL COUNT (BEAKER) (test vvfk=922) 3.09 M/ L 3.93-5.22 HEMOGLOBIN (BEAKER) (test pyto=513) 9.4 GM/DL 11.2-15.7 HEMATOCRIT (BEAKER) (test zklg=716) 29.4 % 34.1-44.9 MEAN CORPUSCULAR VOLUME (BEAKER) (test ptml=231) 95.1 fL 79.4-94.8 MEAN CORPUSCULAR HEMOGLOBIN (BEAKER) (test lcbo=642) 30.4 pg 25.6-32.2 MEAN CORPUSCULAR HEMOGLOBIN CONC (BEAKER) (test ivcl=720) 32.0 GM/DL 32.2-35.5 RED CELL DISTRIBUTION WIDTH (BEAKER) (test pafm=046) 18.8 % 11.7-14.4 PLATELET COUNT (BEAKER) (test bguz=553) 409 K/CU MM 150-450 MEAN PLATELET VOLUME (BEAKER) (test pvxn=427) 9.9 fL 9.4-12.3 NUCLEATED RED BLOOD CELLS (BEAKER) (test gwhw=494) 0 /100 WBC 0-0 BLOOD GAS, [id number] 04:59:00* Test Item Value Reference Range Comments PH ARTERIAL (BEAKER) (test hbxl=030) 7.53 7.35-7.45 PCO2 ARTERIAL (BEAKER) (test gigu=700) 39 mmHg 35-45 PO2 ARTERIAL (BEAKER) (test ggfv=095) 114 mmHg 80-90 O2 SATURATION ARTERIAL (BEAKER) (test lyae=034) 98.5 % 96.0-97.0 HCO3 ARTERIAL (BEAKER) (test hstw=385) 31 mmol/L 21-29 BASE EXCESS ARTERIAL (BEAKER) (test jkfn=101) 8.2 mmol/L -2.0-3.0 PATIENT TEMPERATURE (BEAKER) (test bkvo=9320) 37.2 C FIO2 (BEAKER) (test qwij=6471) 40.0 % CALCIUM, [id number] 04:58:00* Test Item Value Reference Range Comments CALCIUM IONIZED (BEAKER) (test mwyo=908) 1.06 mmol/L 1.12-1.27 PH, BLOOD (BEAKER) (test pkgb=4493) 7.53 POCT-GLUCOSE [id number] 00:22:00* Test Item Value Reference Range Comments POC-GLUCOSE METER (BEAKER) (test ifdc=3323) 114 mg/dL 70-110 TESTED AT [facility] [address] [facility] [address] POCT-GLUCOSE [id number] 18:59:00* Test Item Value Reference Range Comments POC-GLUCOSE METER (BEAKER) (test tgdi=7814) 119 mg/dL 70-110 TESTED AT [place] [id number] [facility] [address] POCT-GLUCOSE [id number] 14:09:00* Test Item Value Reference Range Comments POC-GLUCOSE METER (BEAKER) (test jjcd=3497) 133 mg/dL 70-110 TESTED AT [place] [id number] [facility] [address] RAD, CHEST, 1 VIEW, NON [id number] 11:08:00Reason for exam:->respiratory failureShould this be performed at the bedside?->YesIs the patient ?-> UnknownFINAL REPORT Chest one view INDICATION: Respiratory failure COMPARISON: 03/01/2018 IMPRESSION: A tracheostomy tube is in place. Median sternotomy changes and skin darion are again noted. The cardiac silhouette is enlarged. Aortic dilatation and mediastinal widening are stable. There is vascular congestion with stable lung opacities suggesting edema, multifocal pneumonitis, or combination thereof. Dependent pleural effusions are stable. No pneumothorax is seen. No significant change since 03/01/2018. Signed: Virgilio Kerns Verified Date/Time: 03/02/2018 11:08:40 Reading Location: [facility] Radiology Reading Room UM CULTURE + GRAM STAIN 2018-03-02 08:01:00* Test Item Value Reference Range Comments CULTURE (BEAKER) (test icbe=8552) See comment GRAM STAIN RESULT (BEAKER) (test tywc=1070) <1+ WBCs GRAM STAIN RESULT (BEAKER) (test vlib=509102) 0-5 epithelial cells GRAM STAIN RESULT (BEAKER) (test frbg=243744) <1+ gram positive cocci in pairs GRAM STAIN RESULT (BEAKER) (test obnf=953101) <1+ yeast 2+ YeastNo Normal respiratory alan presentHEPARIN ASSAY - UNFRACTIONATED 2018-03-02 07:38:00* Test Item Value Reference Range Comments UNFRACTIONATED HEPARIN-ANTI 10A (BEAKER) (test wuch=0277) < u/ml 0.30-0.70 Recommendations for Monitoring Unfractionated Heparin Therapeutic Range: 0.3-0. 7 u/mL with continuous IV infusionTHROMBOELASTOGRAPH (TEG)2018-03-02 07:19:00* Test Item Value Reference Range Comments TEG ACTIVATED CLOTTING TIME (BEAKER) (test wela=1069) 4.5 minutes 4.0-7.0 TEG FIBRINOGEN ACTIVITY (BEAKER) (test ssqv=2757) 76.5 degrees 61.0-73.0 TEG PLT. AGGREGATION (BEAKER) (test nkgo=9250) 57.9 MM 55.0-65.0 TEG FIBRINOLYSIS (BEAKER) (test mkcg=2436) 26.3 % 0.0-5.0 TGH ACTIVATED CLOTTING TIME (BEAKER) (test bepb=7333) 4.6 minutes 4.0-7.0 TGH FIBRINOGEN ACTIVITY (BEAKER) (test hrre=3885) 77.2 degrees 61.0-73.0 TGH PLT. AGGREGATION (BEAKER) (test acdp=6820) 64.1 MM 55.0-65.0 TGH FIBRINOLYSIS (BEAKER) (test mxgm=9986) 3.2 % 0.0-5.0 POCT-GLUCOSE [id number] 06:42:00* Test Item Value Reference Range Comments POC-GLUCOSE METER (BEAKER) (test auei=2548) 145 mg/dL 70-110 TESTED AT [facility] [address] [facility] [address] LACTIC ACID, ARTERIAL, WHOLE [id number] 05:35:00* Test Item Value Reference Range Comments LACTATE BLOOD ARTERIAL (2) (BEAKER) (test axlu=2458) 0.8 mmol/L 0.5-2.2 Specimen slightly hemolyzed Effective 03/10/2016: Units/Reference Range ChangeNew: 0.5-2.2 mmol/L Previous: 5 -20 mg/dLCALCIUM, [id number] 05:34:00* Test Item Value Reference Range Comments CALCIUM IONIZED (BEAKER) (test lebh=492) 1.05 mmol/L 1.12-1.27 PH, BLOOD (BEAKER) (test oede=0330) 7.55 BLOOD GAS, [id number] 05:33:00* Test Item Value Reference Range Comments PH ARTERIAL (BEAKER) (test zjiq=105) 7.55 7.35-7.45 PCO2 ARTERIAL (BEAKER) (test xxnq=513) 39 mmHg 35-45 PO2 ARTERIAL (BEAKER) (test gudf=116) 94 mmHg 80-90 O2 SATURATION ARTERIAL (BEAKER) (test wuvt=374) 97.9 % 96.0-97.0 HCO3 ARTERIAL (BEAKER) (test nzkc=427) 34 mmol/L 21-29 BASE EXCESS ARTERIAL (BEAKER) (test jste=646) 10.4 mmol/L -2.0-3.0 PATIENT TEMPERATURE (BEAKER) (test fqaj=3696) 37.1 C FIO2 (BEAKER) (test luuu=7207) 40.0 % [id number] 05:18:00* Test Item Value Reference Range Comments PHOSPHORUS (BEAKER) (test cusd=457) 3.1 mg/dL 2.3-4.7 [id number] 05:18:00* Test Item Value Reference Range Comments MAGNESIUM (BEAKER) (test kwfw=132) 2.1 mg/dL 1.6-2.6 BASIC METABOLIC [id number] 05:18:00* Test Item Value Reference Range Comments SODIUM (BEAKER) (test glxw=387) 134 meq/L 136-145 POTASSIUM (BEAKER) (test iyfj=237) 3.3 meq/L 3.5-5.1 CHLORIDE (BEAKER) (test pbaa=941) 93 meq/L 98-107 CO2 (BEAKER) (test hcco=406) 30 meq/L 22-29 BLOOD UREA NITROGEN (BEAKER) (test otkr=917) 31 mg/dL 7-21 CREATININE (BEAKER) (test ibvn=182) 0.94 mg/dL 0.57-1.25 GLUCOSE RANDOM (BEAKER) (test kjij=956) 137 mg/dL 70-105 CALCIUM (BEAKER) (test yrmb=602) 8.9 mg/dL 8.4-10.2 EGFR (BEAKER) (test edif=5919) 63 mL/min/1.73 sq m ESTIMATED GFR IS NOT ACCURATE CREATININE CLEARANCE IN PREDICTING GLOMERULAR FILTRATION RATE. ESTIMATED GFR IS NOT APPLICABLE FOR DIALYSIS PATIENTS. PROTHROMBIN [id number] 05:01:00* Test Item Value Reference Range Comments PROTIME (BEAKER) (test ljet=437) 14.9 seconds 11.7-14.7 INR (BEAKER) (test nzwk=148) 1.2 <=5.9 RECOMMENDED COUMADIN/WARFARIN INR THERAPY RANGESSTANDARD DOSE: 2.0 - 3.0 Inclu connie: PROPHYLAXIS for venous thrombosis, systemic embolization; TREATMENT for lupis ous thrombosis and/or pulmonary embolus.HIGH RISK: Target INR is 2.5-3.5 for pat ients with mechanical heart valves.CBC (HEMOGRAM ONLY)2018-03-02 04:54:00* Test Item Value Reference Range Comments WHITE BLOOD CELL COUNT (BEAKER) (test burr=182) 11.4 K/ L 3.5-10.5 RED BLOOD CELL COUNT (BEAKER) (test lgvq=591) 3.18 M/ L 3.93-5.22 HEMOGLOBIN (BEAKER) (test izyb=326) 9.7 GM/DL 11.2-15.7 HEMATOCRIT (BEAKER) (test ofbx=893) 30.0 % 34.1-44.9 MEAN CORPUSCULAR VOLUME (BEAKER) (test bsby=357) 94.3 fL 79.4-94.8 MEAN CORPUSCULAR HEMOGLOBIN (BEAKER) (test bumq=650) 30.5 pg 25.6-32.2 MEAN CORPUSCULAR HEMOGLOBIN CONC (BEAKER) (test kzdz=139) 32.3 GM/DL 32.2-35.5 RED CELL DISTRIBUTION WIDTH (BEAKER) (test nhad=744) 18.6 % 11.7-14.4 PLATELET COUNT (BEAKER) (test gwwh=544) 432 K/CU MM 150-450 MEAN PLATELET VOLUME (BEAKER) (test seqk=343) 9.8 fL 9.4-12.3 NUCLEATED RED BLOOD CELLS (BEAKER) (test lrhi=115) 0 /100 WBC 0-0 POCT-GLUCOSE [id number] 00:18:00* Test Item Value Reference Range Comments POC-GLUCOSE METER (BEAKER) (test jocz=0574) 140 mg/dL 70-110 TESTED AT [facility] [address] [facility] [address] POCT-GLUCOSE [id number] 18:11:00* Test Item Value Reference Range Comments POC-GLUCOSE METER (BEAKER) (test tglw=9961) 123 mg/dL 70-110 TESTED AT [address] [address] BLOOD [id number] 18:00:00* Test Item Value Reference Range Comments CULTURE (BEAKER) (test enwy=3154) No growth in 5 days POCT-GLUCOSE [id number] 12:44:00* Test Item Value Reference Range Comments POC-GLUCOSE METER (BEAKER) (test lnvv=1555) 120 mg/dL 70-110 TESTED AT [place] [id number] [facility] [address] RAD, CHEST, 1 VIEW, NON [id number] 08:23:00Reason for exam:->respiratory failureShould this be performed at the bedside?->YesIs the patient ?-> UnknownFINAL REPORT Chest one view INDICATION: Respiratory failure COMPARISON: 02/28/2018 IMPRESSION: A tracheostomy tube is in place. Median sternotomy changes and skin darion are again noted. The cardiac silhouette is enlarged. Aortic dilatation and mediastinal widening are stable. There is vascular congestion with stable bilateral mixed interstitial and airspace opacities suggesting edema, multifocal pneumonitis, or combination thereof. Dependent pleural effusions are stable. No pneumothorax is seen. Signed: Virgilio Kerns MDReport Verified Date/Time: 03/01/2018 08:23:10 Reading Location: [facility] Radiology Reading Room RIN ASSAY - [id number] 08:09:00* Test Item Value Reference Range Comments UNFRACTIONATED HEPARIN-ANTI 10A (BEAKER) (test nsmq=7861) < u/ml 0.30-0.70 Recommendations for Monitoring Unfractionated Heparin Therapeutic Range: 0.3-0. 7 u/mL with continuous IV infusionTHROMBOELASTOGRAPH (TEG)2018-03-01 06:38:00* Test Item Value Reference Range Comments TEG ACTIVATED CLOTTING TIME (BEAKER) (test egdb=5756) 4.7 minutes 4.0-7.0 TEG FIBRINOGEN ACTIVITY (BEAKER) (test nqsq=0393) 75.8 degrees 61.0-73.0 TEG PLT. AGGREGATION (BEAKER) (test dhqs=1693) 67.5 MM 55.0-65.0 TEG FIBRINOLYSIS (BEAKER) (test dcgp=9546) 14.2 % 0.0-5.0 TGH ACTIVATED CLOTTING TIME (BEAKER) (test xnnq=5169) 4.8 minutes 4.0-7.0 TGH FIBRINOGEN ACTIVITY (BEAKER) (test jnjn=4212) 74.4 degrees 61.0-73.0 TGH PLT. AGGREGATION (BEAKER) (test kefq=1366) 63.3 MM 55.0-65.0 TGH FIBRINOLYSIS (BEAKER) (test mwtp=5798) 0.8 % 0.0-5.0 [id number] 05:21:00* Test Item Value Reference Range Comments PHOSPHORUS (BEAKER) (test pxjw=122) 3.3 mg/dL 2.3-4.7 [id number] 05:21:00* Test Item Value Reference Range Comments MAGNESIUM (BEAKER) (test hlue=243) 1.9 mg/dL 1.6-2.6 HEPATIC FUNCTION [id number] 05:21:00* Test Item Value Reference Range Comments TOTAL PROTEIN (BEAKER) (test odjq=070) 5.7 gm/dL 6.0-8.3 ALBUMIN (BEAKER) (test bldc=6456) 3.4 g/dL 3.5-5.0 BILIRUBIN TOTAL (BEAKER) (test lubo=121) 1.5 mg/dL 0.2-1.2 BILIRUBIN DIRECT (BEAKER) (test defw=864) 0.7 mg/dL 0.1-0.5 ALKALINE PHOSPHATASE (BEAKER) (test etjl=850) 88 U/L 40-150 AST (SGOT) (BEAKER) (test mcjh=120) 30 U/L 5-34 ALT (SGPT) (BEAKER) (test emlw=315) 44 U/L 6-55 BASIC METABOLIC [id number] 05:20:00* Test Item Value Reference Range Comments SODIUM (BEAKER) (test sbez=809) 134 meq/L 136-145 POTASSIUM (BEAKER) (test jgwp=447) 3.4 meq/L 3.5-5.1 CHLORIDE (BEAKER) (test tfxx=971) 98 meq/L 98-107 CO2 (BEAKER) (test qwmf=713) 25 meq/L 22-29 BLOOD UREA NITROGEN (BEAKER) (test qxgl=030) 30 mg/dL 7-21 CREATININE (BEAKER) (test zoig=116) 1.01 mg/dL 0.57-1.25 GLUCOSE RANDOM (BEAKER) (test qqxe=514) 128 mg/dL 70-105 CALCIUM (BEAKER) (test svhu=299) 8.5 mg/dL 8.4-10.2 EGFR (BEAKER) (test onpc=3814) 58 mL/min/1.73 sq m ESTIMATED GFR IS NOT ACCURATE CREATININE CLEARANCE IN PREDICTING GLOMERULAR FILTRATION RATE. ESTIMATED GFR IS NOT APPLICABLE FOR DIALYSIS PATIENTS. CALCIUM, [id number] 05:09:00* Test Item Value Reference Range Comments CALCIUM IONIZED (BEAKER) (test bfot=848) 1.04 mmol/L 1.12-1.27 PH, BLOOD (BEAKER) (test iguo=3995) 7.51 LACTIC ACID, ARTERIAL, WHOLE [id number] 05:08:00* Test Item Value Reference Range Comments LACTATE BLOOD ARTERIAL (2) (BEAKER) (test vmqz=4212) 0.9 mmol/L 0.5-2.2 Effective 03/10/2016: Units/Reference Range ChangeNew: 0.5-2.2 mmol/L Previous: 5 -20 mg/dLPROTHROMBIN [id number] 05:06:00* Test Item Value Reference Range Comments PROTIME (BEAKER) (test csbh=149) 16.2 seconds 11.7-14.7 INR (BEAKER) (test ntno=216) 1.3 <=5.9 RECOMMENDED COUMADIN/WARFARIN INR THERAPY RANGESSTANDARD DOSE: 2.0 - 3.0 Inclu connie: PROPHYLAXIS for venous thrombosis, systemic embolization; TREATMENT for lupis ous thrombosis and/or pulmonary embolus.HIGH RISK: Target INR is 2.5-3.5 for pat ients with mechanical heart valves.CBC (HEMOGRAM ONLY)2018-03-01 04:59:00* Test Item Value Reference Range Comments WHITE BLOOD CELL COUNT (BEAKER) (test dccg=120) 9.4 K/ L 3.5-10.5 RED BLOOD CELL COUNT (BEAKER) (test royc=646) 2.75 M/ L 3.93-5.22 HEMOGLOBIN (BEAKER) (test jcul=636) 8.6 GM/DL 11.2-15.7 HEMATOCRIT (BEAKER) (test ckqj=023) 26.5 % 34.1-44.9 MEAN CORPUSCULAR VOLUME (BEAKER) (test jjsn=986) 96.4 fL 79.4-94.8 MEAN CORPUSCULAR HEMOGLOBIN (BEAKER) (test jvof=723) 31.3 pg 25.6-32.2 MEAN CORPUSCULAR HEMOGLOBIN CONC (BEAKER) (test menb=433) 32.5 GM/DL 32.2-35.5 RED CELL DISTRIBUTION WIDTH (BEAKER) (test hiho=437) 19.7 % 11.7-14.4 PLATELET COUNT (BEAKER) (test vevy=221) 378 K/CU MM 150-450 MEAN PLATELET VOLUME (BEAKER) (test vndo=892) 10.1 fL 9.4-12.3 NUCLEATED RED BLOOD CELLS (BEAKER) (test udbd=206) 0 /100 WBC 0-0 BLOOD GAS, [id number] 04:40:00* Test Item Value Reference Range Comments PH ARTERIAL (BEAKER) (test wrme=334) 7.50 7.35-7.45 PCO2 ARTERIAL (BEAKER) (test ybqu=936) 37 mmHg 35-45 PO2 ARTERIAL (BEAKER) (test hokt=918) 89 mmHg 80-90 O2 SATURATION ARTERIAL (BEAKER) (test qlpn=219) 97.3 % 96.0-97.0 HCO3 ARTERIAL (BEAKER) (test gppc=564) 28 mmol/L 21-29 BASE EXCESS ARTERIAL (BEAKER) (test txbe=632) 4.5 mmol/L -2.0-3.0 PATIENT TEMPERATURE (BEAKER) (test ozeq=3525) 37.5 C FIO2 (BEAKER) (test yvaw=7568) 40.0 % POCT-GLUCOSE [id number] 01:17:00* Test Item Value Reference Range Comments POC-GLUCOSE METER ([facility]) (test glow=4298) 141 mg/dL 70-110 TESTED AT [address] [address] POCT-GLUCOSE [id number] 18:13:00* Test Item Value Reference Range Comments POC-GLUCOSE METER ([facility]) (test pahg=9674) 118 mg/dL 70-110 TESTED AT [address] [address] POCT-GLUCOSE [id number] 12:07:00* Test Item Value Reference Range Comments POC-GLUCOSE METER ([facility]) (test xfaq=6054) 137 mg/dL 70-110 TESTED AT [address] [address] [id number] 11:04:00* Test Item Value Reference Range Comments PARTIAL THROMBOPLASTIN TIME (AKER) (test glbf=652) 28.5 seconds 22.5-36.0 Prior to initiating heparinHEPARIN ASSAY - [id number] 08:47:00* Test Item Value Reference Range Comments UNFRACTIONATED HEPARIN-ANTI 10A (AKER) (test ppjb=2901) 0.15 u/ml 0.30-0.70 Recommendations for Monitoring Unfractionated Heparin Therapeutic Range: 0.3-0. 7 u/mL with continuous IV infusionRAD, CHEST, 1 VIEW, NON [id number] 08:06:00Reason for exam:->respiratory failureShould this be performed at the bedside?->YesIs the patient ?->UnknownFINAL REPORT Chest one view INDICATION: Respiratory failure COMPARISON: 02/27/2018 IMPRESSION: A tracheostomy tube is in place. Median sternotomy changes, skin darion, and small wire or lead fragments are again seen. The cardiac silhouette is enlarged. Aortic dilatation and mediastinal widening are stable. Stable left greater than right mixed interstitial and airspace opacities suggest multifocal pneumonitis, edema, or combination thereof. Left greater than right pleural effusions remain present. No pneumothorax is seen. Signed: Virgilio Kerns MDReport Verified Date/Time: 02/28/2018 08:06:22 Reading Location: [facility] Radiology Reading Room MBOELASTOGRAPH (TEG)2018-02-28 06:10:00* Test Item Value Reference Range Comments TEG ACTIVATED CLOTTING TIME (BEAKER) (test czyf=5166) 6.2 minutes 4.0-7.0 TEG FIBRINOGEN ACTIVITY (BEAKER) (test qkjd=3360) 72.9 degrees 61.0-73.0 TEG PLT. AGGREGATION (BEAKER) (test mpnc=3212) 55.7 MM 55.0-65.0 TEG FIBRINOLYSIS (BEAKER) (test rxyz=6074) 20.3 % 0.0-5.0 TGH ACTIVATED CLOTTING TIME (BEAKER) (test haip=3234) 5.6 minutes 4.0-7.0 TGH FIBRINOGEN ACTIVITY (BEAKER) (test cscf=1719) 76.4 degrees 61.0-73.0 TGH PLT. AGGREGATION (BEAKER) (test vygd=2766) 68.1 MM 55.0-65.0 TGH FIBRINOLYSIS (BEAKER) (test vddb=6905) 0.0 % 0.0-5.0 OXYGEN SATURATION, [id number] 05:26:00* Test Item Value Reference Range Comments O2 SATURATION (MEASURED) (BEAKER) (test yodf=1840) 88.0 % CALCIUM, [id number] 05:01:00* Test Item Value Reference Range Comments CALCIUM IONIZED (BEAKER) (test wqil=730) 1.05 mmol/L 1.12-1.27 PH, BLOOD (BEAKER) (test lehf=1608) 7.50 BLOOD GAS, [id number] 04:57:00* Test Item Value Reference Range Comments PH ARTERIAL (BEAKER) (test ejfn=017) 7.49 7.35-7.45 PCO2 ARTERIAL (BEAKER) (test ikkf=698) 33 mmHg 35-45 PO2 ARTERIAL (BEAKER) (test ieyp=178) 86 mmHg 80-90 O2 SATURATION ARTERIAL (BEAKER) (test fyys=163) 97.1 % 96.0-97.0 HCO3 ARTERIAL (BEAKER) (test kbct=948) 24 mmol/L 21-29 BASE EXCESS ARTERIAL (BEAKER) (test cvea=806) 1.1 mmol/L -2.0-3.0 PATIENT TEMPERATURE (BEAKER) (test oyms=3223) 37.5 C FIO2 (BEAKER) (test lmgy=9824) 40.0 % PROTHROMBIN [id number] 04:32:00* Test Item Value Reference Range Comments PROTIME (BEAKER) (test xprw=622) 15.6 seconds 11.7-14.7 INR (BEAKER) (test ufcp=859) 1.2 <=5.9 RECOMMENDED COUMADIN/WARFARIN INR THERAPY RANGESSTANDARD DOSE: 2.0 - 3.0 Inclu connie: PROPHYLAXIS for venous thrombosis, systemic embolization; TREATMENT for lupis ous thrombosis and/or pulmonary embolus.HIGH RISK: Target INR is 2.5-3.5 for pat ients with mechanical heart valves.[id number] 04:28:00* Test Item Value Reference Range Comments PHOSPHORUS (BEAKER) (test nqgk=130) 2.9 mg/dL 2.3-4.7 [id number] 04:28:00* Test Item Value Reference Range Comments MAGNESIUM (BEAKER) (test bykd=580) 1.9 mg/dL 1.6-2.6 BASIC METABOLIC [id number] 04:28:00* Test Item Value Reference Range Comments SODIUM (BEAKER) (test iozn=510) 137 meq/L 136-145 POTASSIUM (BEAKER) (test qdot=211) 3.4 meq/L 3.5-5.1 CHLORIDE (BEAKER) (test qglt=592) 104 meq/L 98-107 CO2 (BEAKER) (test pexd=764) 23 meq/L 22-29 BLOOD UREA NITROGEN (BEAKER) (test pknm=567) 28 mg/dL 7-21 CREATININE (BEAKER) (test bbjp=659) 1.10 mg/dL 0.57-1.25 GLUCOSE RANDOM (BEAKER) (test ihez=768) 130 mg/dL 70-105 CALCIUM (BEAKER) (test wqfr=690) 8.0 mg/dL 8.4-10.2 EGFR (BEAKER) (test dtzj=3854) 52 mL/min/1.73 sq m ESTIMATED GFR IS NOT ACCURATE CREATININE CLEARANCE IN PREDICTING GLOMERULAR FILTRATION RATE. ESTIMATED GFR IS NOT APPLICABLE FOR DIALYSIS PATIENTS. LACTIC ACID, ARTERIAL, WHOLE [id number] 04:24:00* Test Item Value Reference Range Comments LACTATE BLOOD ARTERIAL (2) (BEAKER) (test gito=5478) 1.0 mmol/L 0.5-2.2 Effective 03/10/2016: Units/Reference Range ChangeNew: 0.5-2.2 mmol/L Previous: 5 -20 mg/dLCBC (HEMOGRAM ONLY)2018-02-28 04:20:00* Test Item Value Reference Range Comments WHITE BLOOD CELL COUNT (BEAKER) (test mrgi=856) 9.2 K/ L 3.5-10.5 RED BLOOD CELL COUNT (BEAKER) (test bdje=766) 2.69 M/ L 3.93-5.22 HEMOGLOBIN (BEAKER) (test dilw=857) 8.1 GM/DL 11.2-15.7 HEMATOCRIT (BEAKER) (test pfid=214) 25.7 % 34.1-44.9 MEAN CORPUSCULAR VOLUME (BEAKER) (test cyka=538) 95.5 fL 79.4-94.8 MEAN CORPUSCULAR HEMOGLOBIN (BEAKER) (test nydq=625) 30.1 pg 25.6-32.2 MEAN CORPUSCULAR HEMOGLOBIN CONC (BEAKER) (test kygx=393) 31.5 GM/DL 32.2-35.5 RED CELL DISTRIBUTION WIDTH (BEAKER) (test aajo=662) 20.0 % 11.7-14.4 PLATELET COUNT (BEAKER) (test xmpp=104) 394 K/CU MM 150-450 MEAN PLATELET VOLUME (BEAKER) (test hghq=930) 9.9 fL 9.4-12.3 NUCLEATED RED BLOOD CELLS (BEAKER) (test arzs=655) 0 /100 WBC 0-0 POCT-GLUCOSE [id number] 01:09:00* Test Item Value Reference Range Comments POC-GLUCOSE METER (Pocket GemsAKER) (test tlgr=9245) 136 mg/dL 70-110 TESTED AT [facility] [address] [facility] [id number] 19:21:00* Test Item Value Reference Range Comments PROCALCITONIN (BEAKER) (test ynqa=4922) 0.32 ng/mL <0.05 SEPSIS RISK (ng/mL)Low: 0.05-0.50Intermediate: 0.51-2.00High: > =2.01HEPARIN ASSAY - LOW MOLECULAR [id number] 19:02:00* Test Item Value Reference Range Comments LOVENOX-ANTI 10A (Pocket GemsAKER) (test sgsm=3712) 0.47 u/ml 0.60-2.00 Anti-Factor 10-A Level (Heparin Assay for Low Molecular Weight Heparin)Monitorin g Guidelines: Blood samples should be obtained 4 hours post subcutaneous injecti on (time of Peak level) Therapeutic Peak Levels: 0.6-1.0 units/mL twice daily e noxaparin 1.0-2.0 units/mL once daily enoxaparinRef: CHEST 2012;141:[id number]- TYPE NATRIURETIC FACTOR (BNP)2018-02-27 18:21:00* Test Item Value Reference Range Comments B-TYPE NATRIURETIC PEPTIDE (BEAKER) (test edzk=368) 1177 pg/mL 0-100 POCT-GLUCOSE [id number] 17:59:00* Test Item Value Reference Range Comments POC-GLUCOSE METER (BEAKER) (test gyip=3914) 127 mg/dL 70-110 TESTED AT [facility] [address] [facility] [address] POCT-GLUCOSE [id number] 12:05:00* Test Item Value Reference Range Comments POC-GLUCOSE METER (BEAKER) (test vfmo=2912) 154 mg/dL 70-110 TESTED AT [place] [id number] [facility] [address] HEPARIN ASSAY - [id number] 08:51:00* Test Item Value Reference Range Comments UNFRACTIONATED HEPARIN-ANTI 10A (MediaPhy) (test vzok=9735) 0.43 u/ml 0.30-0.70 Recommendations for Monitoring Unfractionated Heparin Therapeutic Range: 0.3-0. 7 u/mL with continuous IV infusionTHROMBOELASTOGRAPH (TEG)2018-02-27 07:22:00* Test Item Value Reference Range Comments TEG ACTIVATED CLOTTING TIME (BEAKER) (test guaa=1198) 23.0 minutes 4.0-7.0 TEG FIBRINOGEN ACTIVITY (BEAKER) (test fucm=1279) 35.9 degrees 61.0-73.0 TEG PLT. AGGREGATION (BEAKER) (test nnan=3536) 65.2 MM 55.0-65.0 TEG FIBRINOLYSIS (BEAKER) (test yewj=4960) 0.2 % 0.0-5.0 TGH ACTIVATED CLOTTING TIME (BEAKER) (test fimp=5563) 5.7 minutes 4.0-7.0 TGH FIBRINOGEN ACTIVITY (BEAKER) (test nbff=8349) 75.8 degrees 61.0-73.0 TGH PLT. AGGREGATION (BEAKER) (test ijki=5352) 67.4 MM 55.0-65.0 TGH FIBRINOLYSIS (BEAKER) (test amcf=2657) 0.2 % 0.0-5.0 OXYGEN SATURATION, [id number] 07:17:00* Test Item Value Reference Range Comments O2 SATURATION (MEASURED) (BEAKER) (test rgvt=0917) 78.5 % OXYGEN SATURATION, [id number] 07:15:00* Test Item Value Reference Range Comments O2 SATURATION (MEASURED) (BEAKER) (test ccll=0633) 86.2 % HGB/HCT (H&H) - STAT [id number] 05:58:00* Test Item Value Reference Range Comments HEMOGLOBIN (BEAKER) (test sckm=906) 9.3 GM/DL 12.0-15.0 HEMATOCRIT (BEAKER) (test vkyc=130) 27.0 % 36.0-45.0 BLOOD GAS, [id number] 05:57:00* Test Item Value Reference Range Comments PH ARTERIAL (BEAKER) (test skcr=670) 7.45 7.35-7.45 PCO2 ARTERIAL (BEAKER) (test vtdh=375) 30 mmHg 35-45 PO2 ARTERIAL (BEAKER) (test nfzz=625) 124 mmHg 80-90 O2 SATURATION ARTERIAL (BEAKER) (test orhq=219) 98.6 % 96.0-97.0 HCO3 ARTERIAL (BEAKER) (test lxfv=749) 21 mmol/L 21-29 BASE EXCESS ARTERIAL (BEAKER) (test vjcy=110) -2.8 mmol/L -2.0-3.0 PATIENT TEMPERATURE (BEAKER) (test zdmf=4810) 37.0 C FIO2 (BEAKER) (test bhwj=6203) 40.0 % CALCIUM, [id number] 05:57:00* Test Item Value Reference Range Comments CALCIUM IONIZED (BEAKER) (test fcys=716) 1.11 mmol/L 1.12-1.27 PH, BLOOD (BEAKER) (test hxan=6603) 7.45 BLOOD GAS, [id number] 05:37:00* Test Item Value Reference Range Comments PH ARTERIAL (BEAKER) (test lbzi=523) 7.45 7.35-7.45 PCO2 ARTERIAL (BEAKER) (test mmwd=748) 29 mmHg 35-45 PO2 ARTERIAL (BEAKER) (test jipu=209) 82 mmHg 80-90 O2 SATURATION ARTERIAL (BEAKER) (test pqcl=973) 96.6 % 96.0-97.0 HCO3 ARTERIAL (BEAKER) (test awpi=332) 19 mmol/L 21-29 BASE EXCESS ARTERIAL (BEAKER) (test rhdu=747) -3.7 mmol/L -2.0-3.0 PATIENT TEMPERATURE (BEAKER) (test qdbs=7344) 37.0 C FIO2 (BEAKER) (test ochk=0625) 40.0 % [id number] 04:56:00* Test Item Value Reference Range Comments PARTIAL THROMBOPLASTIN TIME (BEAKER) (test zldu=082) 70.3 seconds 22.5-36.0 PROTHROMBIN [id number] 04:54:00* Test Item Value Reference Range Comments PROTIME (BEAKER) (test lpgq=260) 16.3 seconds 11.7-14.7 INR (BEAKER) (test ujww=846) 1.3 <=5.9 RECOMMENDED COUMADIN/WARFARIN INR THERAPY RANGESSTANDARD DOSE: 2.0 - 3.0 Inclu connie: PROPHYLAXIS for venous thrombosis, systemic embolization; TREATMENT for lupis ous thrombosis and/or pulmonary embolus.HIGH RISK: Target INR is 2.5-3.5 for pat ients with mechanical heart valves.LACTIC ACID, ARTERIAL, WHOLE [id number] 04:37:00* Test Item Value Reference Range Comments LACTATE BLOOD ARTERIAL (2) (BEAKER) (test oekb=3504) 0.9 mmol/L 0.5-2.2 Effective 03/10/2016: Units/Reference Range ChangeNew: 0.5-2.2 mmol/L Previous: 5 -20 mg/[id number] 04:36:00* Test Item Value Reference Range Comments PHOSPHORUS (BEAKER) (test vrem=690) 2.9 mg/dL 2.3-4.7 [id number] 04:36:00* Test Item Value Reference Range Comments MAGNESIUM (BEAKER) (test zyoh=237) 2.1 mg/dL 1.6-2.6 BASIC METABOLIC [id number] 04:36:00* Test Item Value Reference Range Comments SODIUM (BEAKER) (test bzih=979) 137 meq/L 136-145 POTASSIUM (BEAKER) (test vxyg=617) 3.7 meq/L 3.5-5.1 CHLORIDE (BEAKER) (test fvly=586) 109 meq/L 98-107 CO2 (BEAKER) (test piyh=081) 17 meq/L 22-29 BLOOD UREA NITROGEN (BEAKER) (test hdlu=915) 26 mg/dL 7-21 CREATININE (BEAKER) (test uhpl=530) 1.09 mg/dL 0.57-1.25 GLUCOSE RANDOM (BEAKER) (test oczv=271) 129 mg/dL 70-105 CALCIUM (BEAKER) (test zxyv=889) 8.1 mg/dL 8.4-10.2 EGFR (BEAKER) (test bhhe=9404) 53 mL/min/1.73 sq m ESTIMATED GFR IS NOT ACCURATE CREATININE CLEARANCE IN PREDICTING GLOMERULAR FILTRATION RATE. ESTIMATED GFR IS NOT APPLICABLE FOR DIALYSIS PATIENTS. RAD, CHEST, 1 VIEW, NON [id number] 04:33:00Reason for exam:->respiratory failureShould this be performed at the bedside?->YesIs the patient ?-> UnknownFINAL REPORT Chest one view. Clinical history: respiratory failure Comparison: Chest radiograph 02/26/18 Technique: A single frontal view of the chest was obtained. Findings: Cardiomediastinal contours are unchanged. There are median sternotomy wires. Tracheostomy tube is in satisfactory position. There are epicardial pacing wires. There are persistent bilateral airspace opacities, left greater than right. There is small bilateral pleural effusions, left greater than right. There is no pneumothorax. Surgical skin darion overlie the left breast. There are surgical clips in the right axilla. Signed: Zoë Díaz MDReport Verified Date/Time: 02/27/2018 04:33:00 Reading Location: [address] Transitional Reading Room (HEMOGRAM ONLY)2018-02-27 04:23:00* Test Item Value Reference Range Comments WHITE BLOOD CELL COUNT (BEAKER) (test fntz=642) 11.7 K/ L 3.5-10.5 RED BLOOD CELL COUNT (BEAKER) (test aqsb=032) 2.77 M/ L 3.93-5.22 HEMOGLOBIN (BEAKER) (test uaxl=754) 8.5 GM/DL 11.2-15.7 HEMATOCRIT (BEAKER) (test hdnl=605) 26.8 % 34.1-44.9 MEAN CORPUSCULAR VOLUME (BEAKER) (test bcrc=905) 96.8 fL 79.4-94.8 MEAN CORPUSCULAR HEMOGLOBIN (BEAKER) (test nimp=095) 30.7 pg 25.6-32.2 MEAN CORPUSCULAR HEMOGLOBIN CONC (BEAKER) (test phvr=788) 31.7 GM/DL 32.2-35.5 RED CELL DISTRIBUTION WIDTH (BEAKER) (test nwpy=236) 20.4 % 11.7-14.4 PLATELET COUNT (BEAKER) (test pazb=045) 451 K/CU MM 150-450 MEAN PLATELET VOLUME (BEAKER) (test cosx=448) 10.2 fL 9.4-12.3 NUCLEATED RED BLOOD CELLS (BEAKER) (test tkgg=966) 0 /100 WBC 0-0 HGB/HCT (H&H) - STAT [id number] 23:35:00* Test Item Value Reference Range Comments HEMOGLOBIN (BEAKER) (test rknf=448) 9.3 g/dL 12.0-15.0 HEMATOCRIT (BEAKER) (test wvpt=573) 27.0 % 36.0-45.0 POCT-GLUCOSE [id number] 23:25:00* Test Item Value Reference Range Comments POC-GLUCOSE METER (BEAKER) (test sbgp=4463) 148 mg/dL 70-110 [address]ED AT [address] [address] [id number] 18:41:00* Test Item Value Reference Range Comments POTASSIUM (BEAKER) (test aloo=407) 4.1 meq/L 3.5-5.1 Check Serum Potassium level 2 hours after oral potassium replacement completed o r 30 min after intravenous potassium replacement.[id number] 18:33:00* Test Item Value Reference Range Comments PARTIAL THROMBOPLASTIN TIME (BEAKER) (test ewnx=961) 74.3 seconds 22.5-36.0 HGB/HCT (H&H) - STAT [id number] 17:59:00* Test Item Value Reference Range Comments HEMOGLOBIN (BEAKER) (test surt=848) 9.2 g/dL 12.0-15.0 HEMATOCRIT (BEAKER) (test fmcu=432) 27.0 % 36.0-45.0 POCT-GLUCOSE [id number] 17:34:00* Test Item Value Reference Range Comments POC-GLUCOSE METER (BEAKER) (test mbgb=2248) 145 mg/dL 70-110 TESTED AT [address] [address] OCCULT BLOOD, [id number] 14:42:00* Test Item Value Reference Range Comments FECAL OCCULT BLOOD (BEAKER) (test dyxh=692) Negative Negative BLOOD GAS, [id number] 14:12:00* Test Item Value Reference Range Comments PH ARTERIAL (BEAKER) (test baql=231) 7.44 7.35-7.45 PCO2 ARTERIAL (BEAKER) (test jwaq=831) 27 mmHg 35-45 PO2 ARTERIAL (BEAKER) (test cbiu=787) 84 mmHg 80-90 O2 SATURATION ARTERIAL (BEAKER) (test lsue=887) 96.7 % 96.0-97.0 HCO3 ARTERIAL (BEAKER) (test jagl=142) 18 mmol/L 21-29 BASE EXCESS ARTERIAL (BEAKER) (test djyx=790) -5.3 mmol/L -2.0-3.0 PATIENT TEMPERATURE (BEAKER) (test kxzk=8619) 37.1 C FIO2 (BEAKER) (test wicm=8782) 40.0 % HGB/HCT (H&H) - STAT [id number] 14:12:00* Test Item Value Reference Range Comments HEMOGLOBIN (BEAKER) (test zkeb=964) 9.5 g/dL 12.0-15.0 HEMATOCRIT (BEAKER) (test kvlt=954) 28.0 % 36.0-45.0 [id number] 13:57:00* Test Item Value Reference Range Comments POTASSIUM (BEAKER) (test lzxm=929) 3.8 meq/L 3.5-5.1 Check Serum Potassium level 2 hours after oral potassium replacement completed o r 30 min after intravenous potassium replacement.HEPARIN ASSAY - UNFRACTIONATED 2018-02-26 13:17:00* Test Item Value Reference Range Comments UNFRACTIONATED HEPARIN-ANTI 10A (BEAKER) (test umuk=0881) 0.44 u/ml 0.30-0.70 Recommendations for Monitoring Unfractionated Heparin Therapeutic Range: 0.3-0. 7 u/mL with continuous IV infusionPOCT-GLUCOSE [id number] 12:07:00* Test Item Value Reference Range Comments POC-GLUCOSE METER (BEAKER) (test xehc=4011) 131 mg/dL 70-110 TESTED AT [facility] [address] [facility] [address] THROMBOELASTOGRAPH (TEG)2018-02-26 11:03:00* Test Item Value Reference Range Comments TEG ACTIVATED CLOTTING TIME (BEAKER) (test mevv=8113) 12.9 minutes 4.0-7.0 TEG FIBRINOGEN ACTIVITY (BEAKER) (test xovb=2865) 53.3 degrees 61.0-73.0 [address]T. AGGREGATION (BEAKER) (test tfmp=4490) 59.5 MM 55.0-65.0 TEG FIBRINOLYSIS (BEAKER) (test tdym=8791) 14.6 % 0.0-5.0 TGH ACTIVATED CLOTTING TIME (BEAKER) (test rzmz=0604) 7.7 minutes 4.0-7.0 TGH FIBRINOGEN ACTIVITY (BEAKER) (test mtgg=2423) 69.3 degrees 61.0-73.0 TGH PLT. AGGREGATION (BEAKER) (test jycx=6348) 61.5 MM 55.0-65.0 TGH FIBRINOLYSIS (BEAKER) (test qtfu=4799) 0.0 % 0.0-5.0 RAD, CHEST, 1 VIEW, NON [id number] 08:26:00Reason for exam:->respiratory failureShould this be performed at the bedside?->YesIs the patient ?-> UnknownFINAL REPORT Chest one view INDICATION: Respiratory failure COMPARISON: 02/25/2018 IMPRESSION: A tracheostomy tube is in place. Median sternotomy changes and inferolateral left chest skin darion are again noted. The cardiac silhouette is enlarged. Aortic dilatation and mediastinal widening are stable. There are stable left greater than right lung mixed interstitial and airspace opacities suggesting multifocal pneumonitis, edema, or combination thereof. A small to moderate left and minimal right pleural effusion are present. No pneumothorax is seen. Signed: Virgilio Kerns MDReport Verified Date/Time: 02/26/2018 08:26:04 Reading Location: [address] Neuro Reading Room [id number] 06:26:00* Test Item Value Reference Range Comments PHOSPHORUS (BEAKER) (test gupe=194) 3.1 mg/dL 2.3-4.7 [id number] 06:26:00* Test Item Value Reference Range Comments MAGNESIUM (BEAKER) (test wcrq=694) 2.3 mg/dL 1.6-2.6 BASIC METABOLIC [id number] 06:26:00* Test Item Value Reference Range Comments SODIUM (BEAKER) (test euxv=832) 138 meq/L 136-145 POTASSIUM (BEAKER) (test atzh=498) 3.8 meq/L 3.5-5.1 CHLORIDE (BEAKER) (test prcm=550) 109 meq/L 98-107 CO2 (BEAKER) (test pshh=735) 18 meq/L 22-29 BLOOD UREA NITROGEN (BEAKER) (test poxj=489) 28 mg/dL 7-21 CREATININE (BEAKER) (test nfxq=995) 1.05 mg/dL 0.57-1.25 GLUCOSE RANDOM (BEAKER) (test nbxp=366) 120 mg/dL 70-105 CALCIUM (BEAKER) (test xlri=694) 8.0 mg/dL 8.4-10.2 EGFR (BEAKER) (test vaix=9663) 55 mL/min/1.73 sq m ESTIMATED GFR IS NOT ACCURATE CREATININE CLEARANCE IN PREDICTING GLOMERULAR FILTRATION RATE. ESTIMATED GFR IS NOT APPLICABLE FOR DIALYSIS PATIENTS. HEPATIC FUNCTION [id number] 06:26:00* Test Item Value Reference Range Comments TOTAL PROTEIN (BEAKER) (test vuuk=600) 5.2 gm/dL 6.0-8.3 ALBUMIN (BEAKER) (test caap=3664) 3.0 g/dL 3.5-5.0 BILIRUBIN TOTAL (BEAKER) (test tlds=382) 1.6 mg/dL 0.2-1.2 BILIRUBIN DIRECT (BEAKER) (test zaes=864) 0.9 mg/dL 0.1-0.5 ALKALINE PHOSPHATASE (BEAKER) (test qpvu=509) 77 U/L 40-150 AST (SGOT) (BEAKER) (test anye=950) 43 U/L 5-34 ALT (SGPT) (BEAKER) (test cefb=800) 43 U/L 6-55 HGB/HCT (H&H) - STAT [id number] 05:48:00* Test Item Value Reference Range Comments HEMOGLOBIN (BEAKER) (test syya=408) 9.2 g/dL 12.0-15.0 HEMATOCRIT (BEAKER) (test bwze=751) 27.0 % 36.0-45.0 POCT-GLUCOSE [id number] 05:27:00* Test Item Value Reference Range Comments POC-GLUCOSE METER (BEAKER) (test ylbh=3397) 119 mg/dL 70-110 TESTED AT [facility] [address] [facility] [address] LACTIC ACID, ARTERIAL, WHOLE [id number] 05:20:00* Test Item Value Reference Range Comments LACTATE BLOOD ARTERIAL (2) (BEAKER) (test btuf=5116) 0.8 mmol/L 0.5-2.2 Effective 03/10/2016: Units/Reference Range ChangeNew: 0.5-2.2 mmol/L Previous: 5 -20 mg/dLOXYGEN SATURATION, [id number] 05:05:00* Test Item Value Reference Range Comments O2 SATURATION (MEASURED) (BEAKER) (test zqev=6353) 71.6 % CALCIUM, [id number] 04:59:00* Test Item Value Reference Range Comments CALCIUM IONIZED (BEAKER) (test bvbm=823) 1.09 mmol/L 1.12-1.27 PH, BLOOD (BEAKER) (test eurf=6066) 7.42 BLOOD GAS, [id number] 04:53:00* Test Item Value Reference Range Comments PH ARTERIAL (BEAKER) (test pdjm=741) 7.42 7.35-7.45 PCO2 ARTERIAL (BEAKER) (test zusg=331) 32 mmHg 35-45 PO2 ARTERIAL (BEAKER) (test xtfj=664) 102 mmHg 80-90 O2 SATURATION ARTERIAL (BEAKER) (test aawp=152) 97.8 % 96.0-97.0 HCO3 ARTERIAL (BEAKER) (test voxw=078) 20 mmol/L 21-29 BASE EXCESS ARTERIAL (BEAKER) (test xnwk=640) -3.6 mmol/L -2.0-3.0 PATIENT TEMPERATURE (BEAKER) (test cjaa=3050) 37.0 C FIO2 (BEAKER) (test lfup=6149) 60.0 % [id number] 04:08:00* Test Item Value Reference Range Comments PARTIAL THROMBOPLASTIN TIME (BEAKER) (test jxvu=348) 87.0 seconds 22.5-36.0 PROTHROMBIN [id number] 04:06:00* Test Item Value Reference Range Comments PROTIME (BEAKER) (test nhwp=533) 17.4 seconds 11.7-14.7 INR (BEAKER) (test dbly=085) 1.4 <=5.9 RECOMMENDED COUMADIN/WARFARIN INR THERAPY RANGESSTANDARD DOSE: 2.0 - 3.0 Inclu connie: PROPHYLAXIS for venous thrombosis, systemic embolization; TREATMENT for lupis ous thrombosis and/or pulmonary embolus.HIGH RISK: Target INR is 2.5-3.5 for pat ients with mechanical heart valves.CBC (HEMOGRAM ONLY)2018-02-26 03:51:00* Test Item Value Reference Range Comments WHITE BLOOD CELL COUNT (BEAKER) (test uxmp=675) 12.9 K/ L 3.5-10.5 RED BLOOD CELL COUNT (BEAKER) (test opax=827) 2.65 M/ L 3.93-5.22 HEMOGLOBIN (BEAKER) (test qgrt=861) 8.1 GM/DL 11.2-15.7 HEMATOCRIT (BEAKER) (test nzdf=507) 25.7 % 34.1-44.9 MEAN CORPUSCULAR VOLUME (BEAKER) (test czgc=878) 97.0 fL 79.4-94.8 MEAN CORPUSCULAR HEMOGLOBIN (BEAKER) (test ggoy=234) 30.6 pg 25.6-32.2 MEAN CORPUSCULAR HEMOGLOBIN CONC (BEAKER) (test homn=630) 31.5 GM/DL 32.2-35.5 RED CELL DISTRIBUTION WIDTH (BEAKER) (test dtdz=746) 19.7 % 11.7-14.4 PLATELET COUNT (BEAKER) (test fdsa=136) 401 K/CU MM 150-450 MEAN PLATELET VOLUME (BEAKER) (test djpe=211) 10.4 fL 9.4-12.3 NUCLEATED RED BLOOD CELLS (BEAKER) (test mcuu=271) 0 /100 WBC 0-0 HGB/HCT (H&H) - STAT [id number] 01:31:00* Test Item Value Reference Range Comments HEMOGLOBIN (BEAKER) (test rnuc=580) 9.2 g/dL 12.0-15.0 HEMATOCRIT (BEAKER) (test wqea=741) 27.0 % 36.0-45.0 THROMBOELASTOGRAPH (TEG)2018-02-26 00:05:00* Test Item Value Reference Range Comments TEG ACTIVATED CLOTTING TIME (BEAKER) (test thyx=8694) 54.8 minutes 4.0-7.0 TEG FIBRINOGEN ACTIVITY (BEAKER) (test ions=0447) 9.0 degrees 61.0-73.0 TEG PLT. AGGREGATION (BEAKER) (test cghn=6800) 21.0 MM 55.0-65.0 TEG FIBRINOLYSIS (BEAKER) (test fmuz=6588) 0.0 % 0.0-5.0 TGH ACTIVATED CLOTTING TIME (BEAKER) (test qtyw=7309) 7.0 minutes 4.0-7.0 TGH FIBRINOGEN ACTIVITY (BEAKER) (test lqmp=4003) 74.1 degrees 61.0-73.0 TGH PLT. AGGREGATION (BEAKER) (test zpqd=8945) 58.5 MM 55.0-65.0 TGH FIBRINOLYSIS (BEAKER) (test ewrk=1162) 4.0 % 0.0-5.0 POCT-GLUCOSE [id number] 23:14:00* Test Item Value Reference Range Comments POC-GLUCOSE METER (BEAKER) (test mkph=0720) 108 mg/dL 70-110 TESTED AT [facility] [address] [facility] [address] [id number] 22:11:00* Test Item Value Reference Range Comments PARTIAL THROMBOPLASTIN TIME (BEAKER) (test flwd=096) 76.0 seconds 22.5-36.0 BASIC METABOLIC [id number] 20:15:00* Test Item Value Reference Range Comments SODIUM (BEAKER) (test pkkj=259) 137 meq/L 136-145 POTASSIUM (BEAKER) (test wfbz=202) 4.1 meq/L 3.5-5.1 CHLORIDE (BEAKER) (test svvv=587) 109 meq/L 98-107 CO2 (BEAKER) (test uimy=494) 19 meq/L 22-29 BLOOD UREA NITROGEN (BEAKER) (test skgs=029) 30 mg/dL 7-21 CREATININE (BEAKER) (test orlg=652) 1.05 mg/dL 0.57-1.25 GLUCOSE RANDOM (BEAKER) (test gzjk=624) 111 mg/dL 70-105 CALCIUM (BEAKER) (test yvqd=251) 7.9 mg/dL 8.4-10.2 EGFR (BEAKER) (test itel=1512) 55 mL/min/1.73 sq m ESTIMATED GFR IS NOT ACCURATE CREATININE CLEARANCE IN PREDICTING GLOMERULAR FILTRATION RATE. ESTIMATED GFR IS NOT APPLICABLE FOR DIALYSIS PATIENTS. BLOOD GAS, [id number] 19:48:00* Test Item Value Reference Range Comments PH ARTERIAL (BEAKER) (test yiuh=570) 7.45 7.35-7.45 PCO2 ARTERIAL (BEAKER) (test vexa=220) 29 mmHg 35-45 PO2 ARTERIAL (BEAKER) (test sluc=857) 205 mmHg 80-90 O2 SATURATION ARTERIAL (BEAKER) (test iknv=308) 99.5 % 96.0-97.0 HCO3 ARTERIAL (BEAKER) (test xekt=543) 20 mmol/L 21-29 BASE EXCESS ARTERIAL (BEAKER) (test xrtc=095) -3.4 mmol/L -2.0-3.0 PATIENT TEMPERATURE (BEAKER) (test hjqk=7850) 37.0 C FIO2 (BEAKER) (test sgks=7323) 60.0 % POCT-GLUCOSE [id number] 18:31:00* Test Item Value Reference Range Comments POC-GLUCOSE METER (BEAKER) (test hewx=0641) 101 mg/dL 70-110 TESTED AT [facility] [address] [facility] [address] THROMBOELASTOGRAPH (TEG)2018-02-25 18:06:00* Test Item Value Reference Range Comments TEG ACTIVATED CLOTTING TIME (BEAKER) (test zljq=8761) 14.9 minutes 4.0-7.0 TEG FIBRINOGEN ACTIVITY (BEAKER) (test mqps=9296) 55.0 degrees 61.0-73.0 TEG PLT. AGGREGATION (BEAKER) (test ztuk=4296) 47.7 MM 55.0-65.0 TEG FIBRINOLYSIS (BEAKER) (test mmkk=6116) 7.0 % 0.0-5.0 TGH ACTIVATED CLOTTING TIME (BEAKER) (test kusx=4506) 5.7 minutes 4.0-7.0 TGH FIBRINOGEN ACTIVITY (BEAKER) (test evpp=9176) 78.2 degrees 61.0-73.0 TGH PLT. AGGREGATION (BEAKER) (test jaoi=3088) 61.4 MM 55.0-65.0 TGH FIBRINOLYSIS (BEAKER) (test orci=4599) 0.1 % 0.0-5.0 [id number] 16:02:00* Test Item Value Reference Range Comments POTASSIUM (BEAKER) (test htlz=935) 3.8 meq/L 3.5-5.1 Check Serum Potassium level 2 hours after oral potassium replacement completed o r 30 min after intravenous potassium replacement.[id number] 15:49:00* Test Item Value Reference Range Comments PARTIAL THROMBOPLASTIN TIME (BEAKER) (test xesq=028) 56.6 seconds 22.5-36.0 BLOOD GAS, [id number] 15:36:00* Test Item Value Reference Range Comments PH ARTERIAL (BEAKER) (test qvxc=711) 7.48 7.35-7.45 PCO2 ARTERIAL (BEAKER) (test taoc=299) 25 mmHg 35-45 PO2 ARTERIAL (BEAKER) (test pyke=667) 87 mmHg 80-90 O2 SATURATION ARTERIAL (BEAKER) (test lxvn=083) 97.3 % 96.0-97.0 HCO3 ARTERIAL (BEAKER) (test hmnq=910) 18 mmol/L 21-29 BASE EXCESS ARTERIAL (BEAKER) (test cjei=951) -4.2 mmol/L -2.0-3.0 PATIENT TEMPERATURE (BEAKER) (test odkv=1516) 37.0 C HGB/HCT (H&H) - STAT [id number] 15:36:00* Test Item Value Reference Range Comments HEMOGLOBIN (BEAKER) (test mdyo=331) 9.9 GM/DL 12.0-15.0 HEMATOCRIT (BEAKER) (test dcwj=149) 29.0 % 36.0-45.0 [id number] 12:54:00* Test Item Value Reference Range Comments POTASSIUM (BEAKER) (test sojx=548) 4.0 meq/L 3.5-5.1 Check Serum Potassium level 2 hours after oral potassium replacement completed o r 30 min after intravenous potassium replacement.HGB/HCT (H&H) - STAT LAB 2018-02-25 11:48:00* Test Item Value Reference Range Comments HEMOGLOBIN (BEAKER) (test cwnq=893) 9.9 g/dL 12.0-15.0 HEMATOCRIT (BEAKER) (test tbqg=274) 29.0 % 36.0-45.0 ANTITHROMBIN [id number] 11:46:00* Test Item Value Reference Range Comments ANTITHROMBIN III ACTIVITY (BEAKER) (test isgr=129) 77.0 % 80.0-120.0 POCT-GLUCOSE [id number] 11:42:00* Test Item Value Reference Range Comments POC-GLUCOSE METER (BEAKER) (test tiwu=7915) 96 mg/dL 70-110 TESTED AT [facility] [address] [facility] [address] HEPARIN ASSAY - [id number] 11:41:00* Test Item Value Reference Range Comments UNFRACTIONATED HEPARIN-ANTI 10A (BEAKER) (test qoxs=4122) 0.13 u/ml 0.30-0.70 Recommendations for Monitoring Unfractionated Heparin Therapeutic Range: 0.3-0. 7 u/mL with continuous IV [id number] 09:35:00* Test Item Value Reference Range Comments PARTIAL THROMBOPLASTIN TIME (BEAKER) (test puvc=486) 45.3 seconds 22.5-36.0 BLOOD GAS, [id number] 06:58:00* Test Item Value Reference Range Comments PH ARTERIAL (BEAKER) (test ojgb=930) 7.43 7.35-7.45 PCO2 ARTERIAL (BEAKER) (test njjv=637) 32 mmHg 35-45 PO2 ARTERIAL (BEAKER) (test wnga=723) 102 mmHg 80-90 O2 SATURATION ARTERIAL (BEAKER) (test nalc=672) 97.8 % 96.0-97.0 HCO3 ARTERIAL (BEAKER) (test fsea=750) 20 mmol/L 21-29 BASE EXCESS ARTERIAL (BEAKER) (test izng=686) -3.3 mmol/L -2.0-3.0 PATIENT TEMPERATURE (BEAKER) (test hmmb=4011) 37.3 C FIO2 (BEAKER) (test ygbe=9736) 50.0 % CALCIUM, [id number] 06:47:00* Test Item Value Reference Range Comments CALCIUM IONIZED (BEAKER) (test daqj=892) 1.06 mmol/L 1.12-1.27 PH, BLOOD (BEAKER) (test xcky=7186) 7.44 OXYGEN SATURATION, [id number] 06:38:00* Test Item Value Reference Range Comments O2 SATURATION (MEASURED) (BEAKER) (test zeio=2312) 82.5 % BASIC METABOLIC [id number] 06:15:00* Test Item Value Reference Range Comments SODIUM (BEAKER) (test obgd=203) 137 meq/L 136-145 POTASSIUM (BEAKER) (test vmcl=656) 3.5 meq/L 3.5-5.1 CHLORIDE (BEAKER) (test yjba=098) 107 meq/L 98-107 CO2 (BEAKER) (test faaf=942) 18 meq/L 22-29 BLOOD UREA NITROGEN (BEAKER) (test ypkg=162) 33 mg/dL 7-21 CREATININE (BEAKER) (test fohv=669) 1.06 mg/dL 0.57-1.25 GLUCOSE RANDOM (BEAKER) (test mosm=876) 107 mg/dL 70-105 CALCIUM (BEAKER) (test qjlb=030) 7.8 mg/dL 8.4-10.2 EGFR (BEAKER) (test qxku=1225) 54 mL/min/1.73 sq m ESTIMATED GFR IS NOT ACCURATE CREATININE CLEARANCE IN PREDICTING GLOMERULAR FILTRATION RATE. ESTIMATED GFR IS NOT APPLICABLE FOR DIALYSIS PATIENTS. [id number] 06:13:00* Test Item Value Reference Range Comments PHOSPHORUS (BEAKER) (test pdyz=636) 3.0 mg/dL 2.3-4.7 [id number] 06:13:00* Test Item Value Reference Range Comments MAGNESIUM (BEAKER) (test kahe=898) 1.8 mg/dL 1.6-2.6 [id number] 06:11:00* Test Item Value Reference Range Comments PARTIAL THROMBOPLASTIN TIME (BEAKER) (test qhgl=647) 90.7 seconds 22.5-36.0 PROTHROMBIN TIME/[id number] 06:09:00* Test Item Value Reference Range Comments PROTIME (BEAKER) (test eodv=020) 17.1 seconds 11.7-14.7 INR (BEAKER) (test ejis=802) 1.4 <=5.9 RECOMMENDED COUMADIN/WARFARIN INR THERAPY RANGESSTANDARD DOSE: 2.0 - 3.0 Inclu connie: PROPHYLAXIS for venous thrombosis, systemic embolization; TREATMENT for lupis ous thrombosis and/or pulmonary embolus.HIGH RISK: Target INR is 2.5-3.5 for pat ients with mechanical heart valves.LACTIC ACID, ARTERIAL, WHOLE [id number] 06:03:00* Test Item Value Reference Range Comments LACTATE BLOOD ARTERIAL (2) (BEAKER) (test huto=8636) 1.0 mmol/L 0.5-2.2 Effective 03/10/2016: Units/Reference Range ChangeNew: 0.5-2.2 mmol/L Previous: 5 -20 mg/dLCBC (HEMOGRAM ONLY)2018-02-25 05:36:00* Test Item Value Reference Range Comments WHITE BLOOD CELL COUNT (BEAKER) (test wowr=319) 11.4 K/ L 3.5-10.5 RED BLOOD CELL COUNT (BEAKER) (test knke=768) 2.74 M/ L 3.93-5.22 HEMOGLOBIN (BEAKER) (test atxf=995) 8.4 GM/DL 11.2-15.7 HEMATOCRIT (BEAKER) (test lpim=458) 26.1 % 34.1-44.9 MEAN CORPUSCULAR VOLUME (BEAKER) (test kciu=179) 95.3 fL 79.4-94.8 MEAN CORPUSCULAR HEMOGLOBIN (BEAKER) (test uwjk=508) 30.7 pg 25.6-32.2 MEAN CORPUSCULAR HEMOGLOBIN CONC (BEAKER) (test yhji=791) 32.2 GM/DL 32.2-35.5 RED CELL DISTRIBUTION WIDTH (BEAKER) (test sajr=977) 18.6 % 11.7-14.4 PLATELET COUNT (BEAKER) (test pyqf=529) 393 K/CU MM 150-450 MEAN PLATELET VOLUME (BEAKER) (test ezbw=176) 10.6 fL 9.4-12.3 NUCLEATED RED BLOOD CELLS (BEAKER) (test ugjk=171) 0 /100 WBC 0-0 BASIC METABOLIC [id number] 00:50:00* Test Item Value Reference Range Comments SODIUM (BEAKER) (test kajs=804) 137 meq/L 136-145 POTASSIUM (BEAKER) (test broe=163) 3.5 meq/L 3.5-5.1 CHLORIDE (BEAKER) (test qrzg=327) 106 meq/L 98-107 CO2 (BEAKER) (test exoq=082) 18 meq/L 22-29 BLOOD UREA NITROGEN (BEAKER) (test xlje=932) 35 mg/dL 7-21 CREATININE (BEAKER) (test tgjt=460) 1.13 mg/dL 0.57-1.25 GLUCOSE RANDOM (BEAKER) (test sawv=621) 148 mg/dL 70-105 CALCIUM (BEAKER) (test igol=005) 8.1 mg/dL 8.4-10.2 EGFR (BEAKER) (test tooc=6529) 51 mL/min/1.73 sq m ESTIMATED GFR IS NOT ACCURATE CREATININE CLEARANCE IN PREDICTING GLOMERULAR FILTRATION RATE. ESTIMATED GFR IS NOT APPLICABLE FOR DIALYSIS PATIENTS. Specimen slightly ictericCBC W/PLT COUNT & AUTO [id number] 00:37:00 * Test Item Value Reference Range Comments WHITE BLOOD CELL COUNT (BEAKER) (test phjk=260) 14.4 K/ L 3.5-10.5 RED BLOOD CELL COUNT (BEAKER) (test hkmk=873) 3.18 M/ L 3.93-5.22 HEMOGLOBIN (BEAKER) (test zrjm=211) 9.5 GM/DL 11.2-15.7 HEMATOCRIT (BEAKER) (test ferb=570) 30.1 % 34.1-44.9 MEAN CORPUSCULAR VOLUME (BEAKER) (test rbes=685) 94.7 fL 79.4-94.8 MEAN CORPUSCULAR HEMOGLOBIN (BEAKER) (test dnom=248) 29.9 pg 25.6-32.2 MEAN CORPUSCULAR HEMOGLOBIN CONC (BEAKER) (test cyfp=994) 31.6 GM/DL 32.2-35.5 RED CELL DISTRIBUTION WIDTH (BEAKER) (test fjgl=264) 18.5 % 11.7-14.4 PLATELET COUNT (BEAKER) (test fvwm=420) 548 K/CU MM 150-450 MEAN PLATELET VOLUME (BEAKER) (test cglu=284) 10.7 fL 9.4-12.3 NUCLEATED RED BLOOD CELLS (BEAKER) (test vpkm=510) 0 /100 WBC 0-0 NEUTROPHILS RELATIVE PERCENT (BEAKER) (test qlzc=573) 82 % LYMPHOCYTES RELATIVE PERCENT (BEAKER) (test ffip=551) 9 % MONOCYTES RELATIVE PERCENT (BEAKER) (test tzqb=958) 6 % EOSINOPHILS RELATIVE PERCENT (BEAKER) (test izub=979) 2 % BASOPHILS RELATIVE PERCENT (BEAKER) (test oqsw=007) 0 % NEUTROPHILS ABSOLUTE COUNT (BEAKER) (test dwsj=973) 11.88 K/ L 1.56-6.13 LYMPHOCYTES ABSOLUTE COUNT (BEAKER) (test qtma=323) 1.29 K/ L 1.18-3.74 MONOCYTES ABSOLUTE COUNT (BEAKER) (test lmyc=462) 0.82 K/ L 0.24-0.36 EOSINOPHILS ABSOLUTE COUNT (BEAKER) (test xfer=791) 0.24 K/ L 0.04-0.36 BASOPHILS ABSOLUTE COUNT (BEAKER) (test tdmv=544) 0.04 K/ L 0.01-0.08 IMMATURE GRANULOCYTES-RELATIVE PERCENT (BEAKER) (test zyti=1346) 1 % 0-1 BLOOD GAS, [id number] 00:31:00* Test Item Value Reference Range Comments PH ARTERIAL (BEAKER) (test jllg=397) 7.47 7.35-7.45 PCO2 ARTERIAL (BEAKER) (test mgpd=184) 30 mmHg 35-45 PO2 ARTERIAL (BEAKER) (test hrol=661) 70 mmHg 80-90 O2 SATURATION ARTERIAL (BEAKER) (test xkhh=950) 95.2 % 96.0-97.0 HCO3 ARTERIAL (BEAKER) (test vcts=676) 21 mmol/L 21-29 BASE EXCESS ARTERIAL (BEAKER) (test getz=941) -1.5 mmol/L -2.0-3.0 PATIENT TEMPERATURE (BEAKER) (test iluu=8721) 37.1 C FIO2 (BEAKER) (test fxhn=2425) 50.0 % RAD, CHEST, 1 VIEW, NON [id number] 00:24:00Reason for exam:->sobFINAL REPORT CLINICAL INDICATION: Shortness of breath Comparison: 02/24/2018 The cardiomediastinal contours are stable. Central pulmonary vascular prominence and left greater than right parenchymal and left pleural opacities are unchanged. There is no pneumothorax. A tracheostomy tube is stable in position. Signed: Abel Schwartz MDReport Verified Date/Time: 02/25/2018 00:24 :42 Reading Location: [address] Reading Room Electronically s igned by: ABEL SCHWARTZ M.D. on 02/25/2018 12:24 AM [id number] 23:42:00* Test Item Value Reference Range Comments PARTIAL THROMBOPLASTIN TIME (BEAKER) (test jivq=577) 42.8 seconds 22.5-36.0 Prior to initiating heparinCBC (HEMOGRAM ONLY)2018-02-24 23:28:00* Test Item Value Reference Range Comments WHITE BLOOD CELL COUNT (BEAKER) (test sruk=955) 11.1 K/ L 3.5-10.5 RED BLOOD CELL COUNT (BEAKER) (test avmx=435) 2.76 M/ L 3.93-5.22 HEMOGLOBIN (BEAKER) (test rvda=081) 8.6 GM/DL 11.2-15.7 HEMATOCRIT (BEAKER) (test ufuv=584) 26.2 % 34.1-44.9 MEAN CORPUSCULAR VOLUME (BEAKER) (test exej=780) 94.9 fL 79.4-94.8 MEAN CORPUSCULAR HEMOGLOBIN (BEAKER) (test hokr=683) 31.2 pg 25.6-32.2 MEAN CORPUSCULAR HEMOGLOBIN CONC (BEAKER) (test oaps=075) 32.8 GM/DL 32.2-35.5 RED CELL DISTRIBUTION WIDTH (BEAKER) (test nzyd=178) 18.6 % 11.7-14.4 PLATELET COUNT (BEAKER) (test uzqd=788) 390 K/CU MM 150-450 MEAN PLATELET VOLUME (BEAKER) (test dqfg=938) 10.3 fL 9.4-12.3 NUCLEATED RED BLOOD CELLS (BEAKER) (test bcjp=029) 0 /100 WBC 0-0 POCT-GLUCOSE [id number] 23:25:00* Test Item Value Reference Range Comments POC-GLUCOSE METER (BEAKER) (test ldld=8992) 105 mg/dL 70-110 TESTED AT [place] [address] [id number] 18:36:00* Test Item Value Reference Range Comments PARTIAL THROMBOPLASTIN TIME (BEAKER) (test fekh=871) 30.9 seconds 22.5-36.0 POCT-GLUCOSE [id number] 17:54:00* Test Item Value Reference Range Comments POC-GLUCOSE METER ([facility]) (test voss=9066) 98 mg/dL 70-110 TESTED AT [address] [address] [address], CHEST WITH IV CONTRAST- PE TEST [id number] 14:21:00FINAL REPORT CT Chest PE Protocol dated prescribed today COMPARISON: January 23, 2018 Clinical information: Chest pain, acute, PE suspected, intermed prob, positive D-dimer Technique: This exam was performed according to our departmental dose-optimization program, which includes automated exposure control, adjustment of the mA and/or kV according to patient size and/or use of interactive reconstruction technique. Precontrast axial images were obtained at pulmonary trunk level for the purpose of monitoring subsequent IV contrast. Po stcontrast axial images of the chest were obtained from above the arch level to the lower chest at maximum enhancement of pulmonary artery. Delayed axial images of the entire chest were obtained subsequently. Coronal and sagittal reformatio ns of the pulmonary arteries were performed. Comment: Heart is normal in size. D issection is noted extending from thoracic arch throughout the entire descending thoracic aorta to the abdominal aorta. This is stable as compared to the prior study dated January 23, 2018. Filling defects are noted in the right lower lobe pu lmonary arteries. No adenopathy is noted in the mediastinum or perihilar region. Trachea and mainstem bronchi are patent. There is small right pleural effusion and bibasilar subsegmental atelectasis. There is parenchymal disease in the righ t lower lobe suspicious for pulmonary infarction. Nonspecific groundglass pulmon vitaliy parenchymal disease is seen in both lungs predominantly in the upper lobes. Differential diagnosis for the groundglass pulmonary parenchymal disease is the following: usual interstitial pneumonia, nonspecific interstitial pneumonitis, d esquamative interstitial pneumonia, hypersensitivity pneumonitis, pulmonary chapincito a or pulmonary hemorrhage. Impression:1. Right lower lobe pulmonary thromboembol ism.2. Bilateral pleural effusion with bibasilar subsegmental atelectasis.3. Non specific groundglass pulmonary parenchymal disease in both lungs.4. 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 ABDOMINAL AND PELVIS CT DATED 02/24/2018 COMPARISON: January 24, 2020 CLINICAL INFORMATION: Chest pain, acute, PE suspected, intermed prob, pos itive D-dimer TECHNIQUE: Axial images of the abdomen and pelvis were obtained f rom diaphragm to the pubic symphysis with GI and intravenous contrast. This exa m was performed according to our departmental dose-optimization program, which i ncludes automated exposure control, adjustment of the mA and/or kV according to patient size and/or use of interactive reconstruction technique. COMMENT: Abdomi nal aortic dissection is noted extending from distal descending thoracic aorta i nto the left iliac artery. The sac trunk is supplied by true and false lumen. Th e superior mesenteric and right renal arteries are supplied true lumen. The left renal artery is supplied by the false lumen. This is stable as compared to the prior study. Liver and spleen are normal in size without focal abnormality. Gal lbladder is minimally distended. No gallstone or biliary dilatation is noted. P ancreas and adrenals are unremarkable. Both kidneys are normal in size and fun ctioning. There is persistent left hydronephrosis. The left ureter is normal in caliber. The urinary bladder is contracted. The opacified small bowel is unremar kable. The large bowel is fluid-filled and minimally distended. Large amount of material is seen in the rectum may be secondary to constipation. Appendix is is normal in caliber. Filling defect is seen in the right femoral vein suspicious f or deep venous thrombosis. There is subcutaneous soft tissue edema in the abdome n, pelvis, and bilateral inguinal region. IMPRESSION: 1. Stable abdominal aorti c dissection.2. Left hydronephrosis.3. Findings suggestive of right femoral vein thrombosis. Please correlate clinically or further evaluate with Doppler study. Signed: Jhonny Miner MDReport Verified Date/Time: 02/24/2018 14:21:05 Reading L ocation: [facility] B1 C013Y CT Body Reading Room , [id number] 14:21:00FINAL REPORT CT Chest PE Protocol dated prescribed today COMPARISON: January 23, 2018 Clinical information: Chest pain, acute, PE suspected, intermed prob, positive D-dimer Technique: This exam was performed according to our departmental dose-optimization program, which includes automated exposure control, adjustment of the mA and/or kV according to patient size and/or use of interactive reconstruction technique. Precontrast axial images were obtained at pulmonary trunk level for the purpose of monitoring subsequent IV contrast. Po stcontrast axial images of the chest were obtained from above the arch level to the lower chest at maximum enhancement of pulmonary artery. Delayed axial images of the entire chest were obtained subsequently. Coronal and sagittal reformatio ns of the pulmonary arteries were performed. Comment: Heart is normal in size. D issection is noted extending from thoracic arch throughout the entire descending thoracic aorta to the abdominal aorta. This is stable as compared to the prior study dated January 23, 2018. Filling defects are noted in the right lower lobe pu lmonary arteries. No adenopathy is noted in the mediastinum or perihilar region. Trachea and mainstem bronchi are patent. There is small right pleural effusion and bibasilar subsegmental atelectasis. There is parenchymal disease in the righ t lower lobe suspicious for pulmonary infarction. Nonspecific groundglass pulmon vitaliy parenchymal disease is seen in both lungs predominantly in the upper lobes. Differential diagnosis for the groundglass pulmonary parenchymal disease is the following: usual interstitial pneumonia, nonspecific interstitial pneumonitis, d esquamative interstitial pneumonia, hypersensitivity pneumonitis, pulmonary chapincito a or pulmonary hemorrhage. Impression:1. Right lower lobe pulmonary thromboembol ism.2. Bilateral pleural effusion with bibasilar subsegmental atelectasis.3. Non specific groundglass pulmonary parenchymal disease in both lungs.4. 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 ABDOMINAL AND PELVIS CT DATED 02/24/2018 COMPARISON: January 24, 2020 CLINICAL INFORMATION: Chest pain, acute, PE suspected, intermed prob, pos itive D-dimer TECHNIQUE: Axial images of the abdomen and pelvis were obtained f rom diaphragm to the pubic symphysis with GI and intravenous contrast. This exa m was performed according to our departmental dose-optimization program, which i ncludes automated exposure control, adjustment of the mA and/or kV according to patient size and/or use of interactive reconstruction technique. COMMENT: Abdomi nal aortic dissection is noted extending from distal descending thoracic aorta i nto the left iliac artery. The sac trunk is supplied by true and false lumen. Th e superior mesenteric and right renal arteries are supplied true lumen. The left renal artery is supplied by the false lumen. This is stable as compared to the prior study. Liver and spleen are normal in size without focal abnormality. Gal lbladder is minimally distended. No gallstone or biliary dilatation is noted. P ancreas and adrenals are unremarkable. Both kidneys are normal in size and fun ctioning. There is persistent left hydronephrosis. The left ureter is normal in caliber. The urinary bladder is contracted. The opacified small bowel is unremar kable. The large bowel is fluid-filled and minimally distended. Large amount of material is seen in the rectum may be secondary to constipation. Appendix is is normal in caliber. Filling defect is seen in the right femoral vein suspicious f or deep venous thrombosis. There is subcutaneous soft tissue edema in the abdome n, pelvis, and bilateral inguinal region. IMPRESSION: 1. Stable abdominal aorti c dissection.2. Left hydronephrosis.3. Findings suggestive of right femoral vein thrombosis. Please correlate clinically or further evaluate with Doppler study. Signed: Jhonny Miner MDReport Verified Date/Time: 02/24/2018 14:21:05 Reading L ocation: [facility] B1 C013Y CT Body Reading Room -GLUCOSE [id number] 11:31:00* Test Item Value Reference Range Comments POC-GLUCOSE METER (BEAKER) (test zjan=5502) 124 mg/dL 70-110 TESTED AT [address] [address] [id number] 08:54:00* Test Item Value Reference Range Comments LIPASE (BEAKER) (test lpev=566) 146 U/L 8-78 HEPATIC FUNCTION [id number] 08:54:00* Test Item Value Reference Range Comments TOTAL PROTEIN (BEAKER) (test cydf=665) 5.6 gm/dL 6.0-8.3 ALBUMIN (BEAKER) (test amrm=8027) 3.2 g/dL 3.5-5.0 BILIRUBIN TOTAL (BEAKER) (test nwph=103) 1.5 mg/dL 0.2-1.2 BILIRUBIN DIRECT (BEAKER) (test azln=450) 0.8 mg/dL 0.1-0.5 ALKALINE PHOSPHATASE (BEAKER) (test xmqi=390) 99 U/L 40-150 AST (SGOT) (BEAKER) (test dieo=195) 33 U/L 5-34 ALT (SGPT) (BEAKER) (test ldca=529) 35 U/L 6-55 [id number] 08:54:00* Test Item Value Reference Range Comments AMYLASE (BEAKER) (test onhu=727) 66 U/L 25-125 RAD, CHEST, 1 VIEW, NON [id number] 08:15:00Reason for exam:->respiratory failureShould this be performed at the bedside?->YesIs the patient ?-> UnknownFINAL REPORT Chest one view INDICATION: Respiratory failure COMPARISON: 02/23/2018 IMPRESSION: A tracheostomy tube is in place. Median sternotomy changes are noted. Inferolateral left chest skin darion are present. The cardiac silhouette is enlarged. Aortic dilatation and mediastinal widening are stable. There is pulmonary vascular congestion with asymmetric left greater than right mixed interstitial and airspace opacities suggesting multifocal pneumonitis, edema, or combination thereof. A small left pleural effusion is present. There is possible trace left apical pneumothorax. Signed: Virgilio Kerns MDReport Verified Date/Time: 02/24/2018 08:15:05 Reading Location: [facility] Radiology Reading Room EN SATURATION, MEASURED 2018-02-24 05:12:00* Test Item Value Reference Range Comments O2 SATURATION (MEASURED) (BEAKER) (test zwhe=1792) 90.3 % BLOOD GAS, [id number] 04:39:00* Test Item Value Reference Range Comments PH ARTERIAL (BEAKER) (test ujbd=011) 7.42 7.35-7.45 PCO2 ARTERIAL (BEAKER) (test gfaa=650) 36 mm Hg 35-45 PO2 ARTERIAL (BEAKER) (test xfsi=898) 89 mm Hg 80-90 O2 SATURATION ARTERIAL (BEAKER) (test yaqb=778) 96.4 % 96.0-97.0 HCO3 ARTERIAL (BEAKER) (test dphj=988) 23 mmol/L 21-29 BASE EXCESS ARTERIAL (BEAKER) (test cpji=079) -0.9 mmol/L -2.0-3.0 PATIENT TEMPERATURE (BEAKER) (test rpae=9736) 38.5 FIO2 (BEAKER) (test rkls=8334) 50 LACTIC ACID, ARTERIAL, WHOLE [id number] 04:27:00* Test Item Value Reference Range Comments LACTATE BLOOD ARTERIAL (2) (BEAKER) (test jbnp=4695) 1.2 mmol/L 0.5-2.2 Effective 03/10/2016: Units/Reference Range ChangeNew: 0.5-2.2 mmol/L Previous: 5 -20 mg/dLCALCIUM, [id number] 04:25:00* Test Item Value Reference Range Comments CALCIUM IONIZED (BEAKER) (test juve=440) 1.07 mmol/L 1.12-1.27 PH, BLOOD (BEAKER) (test ckyo=1267) 7.45 [id number] 04:19:00* Test Item Value Reference Range Comments PHOSPHORUS (BEAKER) (test chka=494) 3.4 mg/dL 2.3-4.7 [id number] 04:19:00* Test Item Value Reference Range Comments MAGNESIUM (BEAKER) (test olfv=838) 2.1 mg/dL 1.6-2.6 BASIC METABOLIC [id number] 04:19:00* Test Item Value Reference Range Comments SODIUM (BEAKER) (test jyec=025) 140 meq/L 136-145 POTASSIUM (BEAKER) (test lstd=996) 4.1 meq/L 3.5-5.1 CHLORIDE (BEAKER) (test rxwg=923) 108 meq/L 98-107 CO2 (BEAKER) (test xrif=387) 20 meq/L 22-29 BLOOD UREA NITROGEN (BEAKER) (test xyjo=832) 48 mg/dL 7-21 CREATININE (BEAKER) (test rhpe=848) 1.37 mg/dL 0.57-1.25 GLUCOSE RANDOM (BEAKER) (test cjfq=505) 134 mg/dL 70-105 CALCIUM (BEAKER) (test dmmi=187) 8.0 mg/dL 8.4-10.2 EGFR (BEAKER) (test hjmd=7066) 40 mL/min/1.73 sq m ESTIMATED GFR IS NOT ACCURATE CREATININE CLEARANCE IN PREDICTING GLOMERULAR FILTRATION RATE. ESTIMATED GFR IS NOT APPLICABLE FOR DIALYSIS PATIENTS. PROTHROMBIN TIME/[id number] 04:11:00* Test Item Value Reference Range Comments PROTIME (BEAKER) (test qgso=932) 15.3 seconds 11.7-14.7 INR (BEAKER) (test pphz=738) 1.2 <=5.9 RECOMMENDED COUMADIN/WARFARIN INR THERAPY RANGESSTANDARD DOSE: 2.0 - 3.0 Inclu connie: PROPHYLAXIS for venous thrombosis, systemic embolization; TREATMENT for lupis ous thrombosis and/or pulmonary embolus.HIGH RISK: Target INR is 2.5-3.5 for pat ients with mechanical heart valves.[id number] 04:11:00* Test Item Value Reference Range Comments PARTIAL THROMBOPLASTIN TIME (BEAKER) (test lwot=555) 28.8 seconds 22.5-36.0 CBC (HEMOGRAM ONLY)2018-02-24 04:04:00* Test Item Value Reference Range Comments WHITE BLOOD CELL COUNT (BEAKER) (test yonx=155) 12.5 K/ L 3.5-10.5 RED BLOOD CELL COUNT (BEAKER) (test krmz=762) 2.83 M/ L 3.93-5.22 HEMOGLOBIN (BEAKER) (test jxih=435) 8.6 GM/DL 11.2-15.7 HEMATOCRIT (BEAKER) (test zsms=950) 27.5 % 34.1-44.9 MEAN CORPUSCULAR VOLUME (BEAKER) (test ghxd=425) 97.2 fL 79.4-94.8 MEAN CORPUSCULAR HEMOGLOBIN (BEAKER) (test pbpt=547) 30.4 pg 25.6-32.2 MEAN CORPUSCULAR HEMOGLOBIN CONC (BEAKER) (test mcdt=559) 31.3 GM/DL 32.2-35.5 RED CELL DISTRIBUTION WIDTH (BEAKER) (test aqio=675) 18.9 % 11.7-14.4 PLATELET COUNT (BEAKER) (test anyj=870) 399 K/CU MM 150-450 MEAN PLATELET VOLUME (BEAKER) (test epzq=755) 10.8 fL 9.4-12.3 NUCLEATED RED BLOOD CELLS (BEAKER) (test liet=443) 0 /100 WBC 0-0 POCT-GLUCOSE [id number] 00:07:00* Test Item Value Reference Range Comments POC-GLUCOSE METER (BEAKER) (test zqie=8927) 142 mg/dL 70-110 TESTED AT [facility] [address] [facility] [address] BASIC METABOLIC [id number] 20:25:00* Test Item Value Reference Range Comments SODIUM (BEAKER) (test ilwf=416) 142 meq/L 136-145 POTASSIUM (BEAKER) (test snpb=344) 3.9 meq/L 3.5-5.1 CHLORIDE (BEAKER) (test ccgi=646) 109 meq/L 98-107 CO2 (BEAKER) (test zznd=550) 21 meq/L 22-29 BLOOD UREA NITROGEN (BEAKER) (test newx=303) 51 mg/dL 7-21 CREATININE (BEAKER) (test phkx=836) 1.52 mg/dL 0.57-1.25 GLUCOSE RANDOM (BEAKER) (test lnqp=642) 143 mg/dL 70-105 CALCIUM (BEAKER) (test ulzj=148) 8.2 mg/dL 8.4-10.2 EGFR (BEAKER) (test jzqc=9952) 36 mL/min/1.73 sq m ESTIMATED GFR IS NOT ACCURATE CREATININE CLEARANCE IN PREDICTING GLOMERULAR FILTRATION RATE. ESTIMATED GFR IS NOT APPLICABLE FOR DIALYSIS PATIENTS. BASIC METABOLIC [id number] 18:53:00* Test Item Value Reference Range Comments SODIUM (BEAKER) (test ifco=575) 141 meq/L 136-145 POTASSIUM (BEAKER) (test vxrg=364) 4.0 meq/L 3.5-5.1 CHLORIDE (BEAKER) (test vjgo=450) 108 meq/L 98-107 CO2 (BEAKER) (test uhzu=499) 21 meq/L 22-29 BLOOD UREA NITROGEN (BEAKER) (test vwtv=289) 48 mg/dL 7-21 CREATININE (BEAKER) (test vyhh=299) 1.53 mg/dL 0.57-1.25 GLUCOSE RANDOM (BEAKER) (test tzqc=858) 146 mg/dL 70-105 CALCIUM (BEAKER) (test hqzv=641) 8.2 mg/dL 8.4-10.2 EGFR (BEAKER) (test kyjn=5080) 36 mL/min/1.73 sq m ESTIMATED GFR IS NOT ACCURATE CREATININE CLEARANCE IN PREDICTING GLOMERULAR FILTRATION RATE. ESTIMATED GFR IS NOT APPLICABLE FOR DIALYSIS PATIENTS. BLOOD GAS, [id number] 18:28:00* Test Item Value Reference Range Comments PH ARTERIAL (BEAKER) (test fqtz=414) 7.43 7.35-7.45 PCO2 ARTERIAL (BEAKER) (test qfhr=201) 37 mmHg 35-45 PO2 ARTERIAL (BEAKER) (test bjar=550) 64 mmHg 80-90 O2 SATURATION ARTERIAL (BEAKER) (test ghbq=719) 92.6 % 96.0-97.0 HCO3 ARTERIAL (BEAKER) (test iwsx=838) 24 mmol/L 21-29 BASE EXCESS ARTERIAL (BEAKER) (test hgkn=408) 0.1 mmol/L -2.0-3.0 PATIENT TEMPERATURE (BEAKER) (test ycwg=9988) 37.5 C FIO2 (BEAKER) (test qhgq=3678) 50.0 % [id number] 18:02:00* Test Item Value Reference Range Comments FIBRINOGEN LEVEL (BEAKER) (test gmux=568) 384 mg/dl 225-434 [id number] 18:02:00* Test Item Value Reference Range Comments PARTIAL THROMBOPLASTIN TIME (BEAKER) (test uiyq=718) 31.7 seconds 22.5-36.0 POCT-GLUCOSE [id number] 17:52:00* Test Item Value Reference Range Comments POC-GLUCOSE METER (BEAKER) (test jzxo=6501) 140 mg/dL 70-110 TESTED AT [facility] [address] [facility] [address] RAD, CHEST, 1 VIEW, NON [id number] 08:36:00Reason for exam:->respiratory failureShould this be performed at the bedside?->YesIs the patient ?-> UnknownFINAL REPORT HISTORY : respiratory failure. Comparison: 02/22/2018 Comment: Single portable view of the chest was obtained. The cardiac silhouette size is enlarged. There is a tortuous/ectatic thoracic aorta. There has been interval removal of the nasogastric and feeding tube catheters. Tracheostomy tube is in place. The patient is status post sternotomy. No pneumothorax is visualized. There is diffuse parenchymal airspace disease, asymmetrically more prominent on the left. Postsurgical changes are seen in the left lower chest. There is a small left-sided pleural effusion with some adjacent airspace disease/consolidation. Signed: Portia Mello Verified Date/Time: 02/23/2018 08:36:44 Reading Location: [facility] Diagnostic Imaging Reading Room - [place] [address] IC ACID, ARTERIAL, WHOLE [id number] 06:39:00* Test Item Value Reference Range Comments LACTATE BLOOD ARTERIAL (2) (BEAKER) (test zuyy=5904) 1.1 mmol/L 0.5-2.2 Specimen slightly hemolyzed Effective 03/10/2016: Units/Reference Range ChangeNew: 0.5-2.2 mmol/L Previous: 5 -20 mg/dLCALCIUM, [id number] 06:32:00* Test Item Value Reference Range Comments CALCIUM IONIZED (BEAKER) (test rqju=777) 1.04 mmol/L 1.12-1.27 PH, BLOOD (BEAKER) (test rjob=4615) 7.34 OXYGEN SATURATION, [id number] 06:31:00* Test Item Value Reference Range Comments O2 SATURATION (MEASURED) (BEAKER) (test ksti=0015) 56.0 % BLOOD GAS, [id number] 06:26:00* Test Item Value Reference Range Comments PH ARTERIAL (BEAKER) (test najs=042) 7.42 7.35-7.45 PCO2 ARTERIAL (BEAKER) (test ihhu=710) 36 mmHg 35-45 PO2 ARTERIAL (BEAKER) (test ayor=405) 106 mmHg 80-90 O2 SATURATION ARTERIAL (BEAKER) (test peps=553) 97.9 % 96.0-97.0 HCO3 ARTERIAL (BEAKER) (test lsfy=074) 22 mmol/L 21-29 BASE EXCESS ARTERIAL (BEAKER) (test hpwg=691) -1.8 mmol/L -2.0-3.0 PATIENT TEMPERATURE (BEAKER) (test qqso=5889) 37.1 C FIO2 (BEAKER) (test karr=7491) 60.0 % BASIC METABOLIC [id number] 05:51:00* Test Item Value Reference Range Comments SODIUM (BEAKER) (test wtfg=623) 140 meq/L 136-145 POTASSIUM (BEAKER) (test xvbc=992) 4.7 meq/L 3.5-5.1 CHLORIDE (BEAKER) (test wjsu=776) 108 meq/L 98-107 CO2 (BEAKER) (test rafb=039) 21 meq/L 22-29 BLOOD UREA NITROGEN (BEAKER) (test qyyt=062) 52 mg/dL 7-21 CREATININE (BEAKER) (test ldks=764) 1.40 mg/dL 0.57-1.25 GLUCOSE RANDOM (BEAKER) (test nlxo=228) 125 mg/dL 70-105 CALCIUM (BEAKER) (test oqsn=862) 7.8 mg/dL 8.4-10.2 EGFR (BEAKER) (test edgd=0280) 39 mL/min/1.73 sq m ESTIMATED GFR IS NOT ACCURATE CREATININE CLEARANCE IN PREDICTING GLOMERULAR FILTRATION RATE. ESTIMATED GFR IS NOT APPLICABLE FOR DIALYSIS PATIENTS. HEPATIC FUNCTION [id number] 05:51:00* Test Item Value Reference Range Comments TOTAL PROTEIN (BEAKER) (test mpnw=396) 5.5 gm/dL 6.0-8.3 ALBUMIN (BEAKER) (test jvcm=1037) 3.1 g/dL 3.5-5.0 BILIRUBIN TOTAL (BEAKER) (test atdt=363) 1.7 mg/dL 0.2-1.2 BILIRUBIN DIRECT (BEAKER) (test heye=726) 1.0 mg/dL 0.1-0.5 ALKALINE PHOSPHATASE (BEAKER) (test ytor=014) 93 U/L 40-150 AST (SGOT) (BEAKER) (test wgdg=677) 27 U/L 5-34 ALT (SGPT) (BEAKER) (test myli=303) 32 U/L 6-55 [id number] 05:48:00* Test Item Value Reference Range Comments PHOSPHORUS (BEAKER) (test tgis=090) 4.9 mg/dL 2.3-4.7 [id number] 05:48:00* Test Item Value Reference Range Comments MAGNESIUM (BEAKER) (test vxmq=484) 2.3 mg/dL 1.6-2.6 [id number] 05:40:00* Test Item Value Reference Range Comments FIBRINOGEN LEVEL (BEAKER) (test uzmc=025) 390 mg/dl 225-434 [id number] 05:40:00* Test Item Value Reference Range Comments PARTIAL THROMBOPLASTIN TIME (BEAKER) (test uenj=302) 27.3 seconds 22.5-36.0 PROTHROMBIN [id number] 05:39:00* Test Item Value Reference Range Comments PROTIME (BEAKER) (test thih=410) 16.5 seconds 11.7-14.7 INR (BEAKER) (test vqey=359) 1.3 <=5.9 RECOMMENDED COUMADIN/WARFARIN INR THERAPY RANGESSTANDARD DOSE: 2.0 - 3.0 Inclu connie: PROPHYLAXIS for venous thrombosis, systemic embolization; TREATMENT for lupis ous thrombosis and/or pulmonary embolus.HIGH RISK: Target INR is 2.5-3.5 for pat ients with mechanical heart valves.CBC (HEMOGRAM ONLY)2018-02-23 05:24:00* Test Item Value Reference Range Comments WHITE BLOOD CELL COUNT (BEAKER) (test ysmw=963) 12.6 K/ L 3.5-10.5 RED BLOOD CELL COUNT (BEAKER) (test okzy=916) 2.77 M/ L 3.93-5.22 HEMOGLOBIN (BEAKER) (test ehnk=109) 8.3 GM/DL 11.2-15.7 HEMATOCRIT (BEAKER) (test rjvq=908) 27.0 % 34.1-44.9 MEAN CORPUSCULAR VOLUME (BEAKER) (test grdf=200) 97.5 fL 79.4-94.8 MEAN CORPUSCULAR HEMOGLOBIN (BEAKER) (test xdgx=689) 30.0 pg 25.6-32.2 MEAN CORPUSCULAR HEMOGLOBIN CONC (BEAKER) (test knrj=428) 30.7 GM/DL 32.2-35.5 RED CELL DISTRIBUTION WIDTH (BEAKER) (test bmzq=300) 18.6 % 11.7-14.4 PLATELET COUNT (BEAKER) (test qqaj=056) 326 K/CU MM 150-450 MEAN PLATELET VOLUME (BEAKER) (test oblx=705) 11.4 fL 9.4-12.3 NUCLEATED RED BLOOD CELLS (BEAKER) (test iite=825) 0 /100 WBC 0-0 POCT-GLUCOSE [id number] 00:39:00* Test Item Value Reference Range Comments POC-GLUCOSE METER (BEAKER) (test htzh=9356) 131 mg/dL 70-110 TESTED AT [facility] [address] [facility] [address] [id number] 19:13:00* Test Item Value Reference Range Comments FIBRINOGEN LEVEL (BEAKER) (test jynf=224) 387 mg/dl 225-434 [id number] 19:13:00* Test Item Value Reference Range Comments PARTIAL THROMBOPLASTIN TIME (BEAKER) (test tkxi=255) 29.8 seconds 22.5-36.0 URINALYSIS W/ [id number] 13:29:00* Test Item Value Reference Range Comments COLOR (BEAKER) (test vuul=957) Yellow CLARITY (BEAKER) (test tajf=416) Clear SPECIFIC GRAVITY UA (BEAKER) (test ipgi=828) 1.016 1.001-1.035 PH UA (BEAKER) (test rlls=913) 7.0 5.0-8.0 PROTEIN UA (BEAKER) (test bhpq=188) 50 mg/dL Negative GLUCOSE UA (BEAKER) (test lqac=079) Negative Negative KETONES UA (BEAKER) (test iydj=004) Negative Negative BILIRUBIN UA (BEAKER) (test rzam=138) Negative Negative BLOOD UA (BEAKER) (test xduy=127) Small Negative NITRITE UA (BEAKER) (test rsex=983) Negative Negative LEUKOCYTE ESTERASE UA (BEAKER) (test igek=739) Negative Negative UROBILINOGEN UA (BEAKER) (test eebv=705) 0.2 mg/dL 0.2-1.0 RBC UA (BEAKER) (test ydov=202) 2 /HPF WBC UA (BEAKER) (test dzmj=349) 6 /HPF SOURCE(BEAKER) (test rvfm=5609) Urine, [place] POCT-GLUCOSE [id number] 12:32:00* Test Item Value Reference Range Comments POC-GLUCOSE METER (BEAKER) (test iknq=9874) 134 mg/dL 70-110 TESTED AT [facility] [address] [facility] [address] RAD, CHEST, 1 VIEW, NON [id number] 07:35:00Reason for exam:->respiratory failureShould this be performed at the bedside?->YesIs the patient ?-> UnknownFINAL REPORT Chest, one view. HISTORY: Respiratory failure COMPARISON: 02/21/2018 IMPRESSION: Unchanged moderate left pleural effusion and patchy bilateral opacities, left greater than right. Cardiomediastinal silhouette is persistently enlarged. No identifiable pneumothorax. Tracheostomy and partially visualized feeding catheter and nasogastric tube unchanged in position. Signed: Seth Merritt MDReport Verified Date/Time: 02/22/2018 07:35:57 Reading Location: [facility] Diagnostic Imaging Reading Room - [place] [address] EN SATURATION, [id number] 07:26:00* Test Item Value Reference Range Comments O2 SATURATION (MEASURED) (BEAKER) (test lmeh=3054) 82.9 % BLOOD GAS, [id number] 07:23:00* Test Item Value Reference Range Comments PH ARTERIAL (BEAKER) (test yisw=765) 7.45 7.35-7.45 PCO2 ARTERIAL (BEAKER) (test ywte=628) 33 mmHg 35-45 PO2 ARTERIAL (BEAKER) (test uenp=359) 98 mmHg 80-90 O2 SATURATION ARTERIAL (BEAKER) (test tcaf=853) 97.6 % 96.0-97.0 HCO3 ARTERIAL (BEAKER) (test leht=639) 22 mmol/L 21-29 BASE EXCESS ARTERIAL (BEAKER) (test rwaz=633) -1.4 mmol/L -2.0-3.0 PATIENT TEMPERATURE (BEAKER) (test vizi=3916) 37.5 C FIO2 (BEAKER) (test eqku=5479) 60.0 % CT, CHEST, WITHOUT [id number] 07:09:00FINAL REPORT EXAMINATION: Noncontrast CT examinations of the chest, abdomen and pelvis CLINICAL HISTORY: Infection. Evaluate etiology. COMPARISON EXAM: 01/23/2018 TECHNIQUE: Axial noncontrast 5 mm tomographic images were acquired through the chest, abdomen and pelvis. Postprocessing was performed and coronal and sagittal reformatted images were created and reviewed. The exam was performed according to our departmental dose optimization program which includes automated exposure control, adjustment of the mA and/or kV according to pa tient's size and/or use of iterative reconstructive technique. FINDINGS: Chest: Postoperative changes are noted involving the lateral chest wall including a cu taneous row of surgical darion. A new small patchy nodular opacity is noted in the retroareolar region of the left breast which measures approximately 2-3 cm a nd is likely a hematoma. Infection/abscess cannot be excluded. The tip of the tr acheostomy tube is in good position. Tip of the nasogastric tube is in the stoma ch. Tip of the feeding tube is in the descending segment of the duodenum. Evalua tion the mediastinal structures is limited by the absence of contrast. Aortic ec thais is again noted. A graft is redemonstrated within the ascending thoracic ao rta. No definite evidence of acute aortic mural hemorrhage. Noncontrast images o f the pulmonary arteries are grossly unremarkable. The heart is mildly enlarged with a new small to moderate pericardial effusion. The esophagus is decompressed . No definite evidence of pathologic lymphadenopathy. Trace debris is noted with in the trachea, likely inspissated secretions. New opacities are noted throughou t both lungs. The basilar lung opacities are more confluent and associated with air bronchograms. The upper lobe opacities are groundglass and reticulonodular a nd morphology. There is a new small left pleural effusion which appears relative ly simple. A midline sternotomy is noted. Evaluation for acute osseous injury is limited by motion degradation. Abdomen and pelvis: Limited noncontrast images of the liver are unremarkable. The gallbladder is mildly distended without evidence of pericholecystic edema or biliary dilatation. The pancreas is mildly atrophic with fatty infiltration. The spleen is normal in size measuring 10 cm. The a drenal glands are normal in size and shape. Subtle nodularity along the left adr enal gland is favored to reflect an adjacent vessel. Right kidney is unremarkabl e. As before, there is severe dilatation of the left renal collecting system wit h suspected mass effect on the left renal cortex and cortical thinning. Although the etiology is indeterminate, the finding may be related to a UPJ stenosis as the downstream left ureter is normal in caliber. Surgical clips are also noted n ear the left hilum. Therefore, a surgical clip occluding the proximal left urete r cannot be excluded. Absence of IV contrast limits further characterization. Ev aluation of the bowel is limited by the absence of contrast. The stomach is juan pablo sly unremarkable. Loops of small bowel are associated with mild gaseous distenti on and scattered fluid levels without discrete transition point. Moderate to la rge volume of gas and inspissated stool are noted throughout the colon concernin g for dysmotility/constipation. Colonic diverticulosis is noted without evidence of diverticulitis. Further characterization of the bowel including the appendix is limited by the absence of contrast. The abdominal aorta is normal in caliber. Further characterization the vascular structures is limited by the absence of contrast. Uterus and adnexa are unremarkable. The bladder is decompressed with a Camargo catheter. Trace fluid is noted in the pelvis. There is focal infiltration of the right groin soft tissues, nonspecific but possibly related to small volu me of hemorrhage given the adjacent surgical clips. Asymmetric fluid is also not ed along the ventral margin of the right proximal thigh musculature. There is di ffuse infiltration of the abdominal and pelvic subcutaneous tissues compatible w ith a component of anasarca. No definite evidence of an acute osseous abnormalit y. IMPRESSION: New bilateral parenchymal lung opacities. Although a component o f atelectasis is suspected, a multifocal pneumonia should also be considered. Mi ld superimposed pulmonary edema may cannot be excluded. Small simple appearing l eft pleural effusion, possibly parapneumonic. Severe left hydronephrosis, simila r to prior study 01/23/2018 but new compared with 07/23/2011. Absence of IV contra st limits further characterization. Etiology indeterminant. UPJ stenosis would b e a consideration. Occlusion related to one of the left perinephric retroperiton eal surgical clips cannot be excluded. Consider follow-up with urology if approp riate. Left chest wall postoperative changes. Left breast retroareolar 2-3 cm no dule, hematoma favored. Phlegmon/abscess cannot be excluded. Right inguinal and right proximal thigh asymmetric complex fluid. Hemorrhage again favored. Infect ion cannot be excluded. 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 No definite noncontrast evidence of acute aortic pathology. Gas eous distention of the bowel and relatively large volume of inspissated stool th roughout the colon suggesting dysmotility/constipation and possible ileus. New m ild cardiac enlargement and new small-moderate pericardial effusion. Colonic div erticulosis without evidence of diverticulitis. Body wall anasarca. Trace ascite s. Signed: Richard Valdez MDReport Verified Date/Time: 02/22/2018 07:09:09 Vicente morin Location: [address] Reading Room IUM, [id number] 06:06:00* Test Item Value Reference Range Comments CALCIUM IONIZED (BEAKER) (test hrwj=536) 1.09 mmol/L 1.12-1.27 PH, BLOOD (BEAKER) (test uzqg=6746) 7.43 [id number] 05:22:00* Test Item Value Reference Range Comments PHOSPHORUS (BEAKER) (test rhny=614) 3.7 mg/dL 2.3-4.7 [id number] 05:22:00* Test Item Value Reference Range Comments MAGNESIUM (BEAKER) (test vzca=128) 2.4 mg/dL 1.6-2.6 BASIC METABOLIC [id number] 05:22:00* Test Item Value Reference Range Comments SODIUM (BEAKER) (test hggu=733) 143 meq/L 136-145 POTASSIUM (BEAKER) (test jcnc=808) 4.4 meq/L 3.5-5.1 CHLORIDE (BEAKER) (test mhjy=469) 112 meq/L 98-107 CO2 (BEAKER) (test jkcr=319) 18 meq/L 22-29 BLOOD UREA NITROGEN (BEAKER) (test fcvr=402) 55 mg/dL 7-21 CREATININE (BEAKER) (test dwnm=034) 1.51 mg/dL 0.57-1.25 GLUCOSE RANDOM (BEAKER) (test lldy=458) 173 mg/dL 70-105 CALCIUM (BEAKER) (test oogy=984) 8.2 mg/dL 8.4-10.2 EGFR (BEAKER) (test rgbz=8431) 36 mL/min/1.73 sq m ESTIMATED GFR IS NOT ACCURATE CREATININE CLEARANCE IN PREDICTING GLOMERULAR FILTRATION RATE. ESTIMATED GFR IS NOT APPLICABLE FOR DIALYSIS PATIENTS. HEPATIC FUNCTION [id number] 05:22:00* Test Item Value Reference Range Comments TOTAL PROTEIN (BEAKER) (test klkh=911) 6.0 gm/dL 6.0-8.3 ALBUMIN (BEAKER) (test xsxe=6021) 3.3 g/dL 3.5-5.0 BILIRUBIN TOTAL (BEAKER) (test iocs=086) 1.9 mg/dL 0.2-1.2 BILIRUBIN DIRECT (BEAKER) (test oyws=522) 1.1 mg/dL 0.1-0.5 ALKALINE PHOSPHATASE (BEAKER) (test ifac=041) 128 U/L 40-150 AST (SGOT) (BEAKER) (test igar=919) 31 U/L 5-34 ALT (SGPT) (BEAKER) (test xrvr=100) 38 U/L 6-55 LACTIC ACID, ARTERIAL, WHOLE [id number] 05:20:00* Test Item Value Reference Range Comments LACTATE BLOOD ARTERIAL (2) (BEAKER) (test lbjt=3537) 1.2 mmol/L 0.5-2.2 Effective 03/10/2016: Units/Reference Range ChangeNew: 0.5-2.2 mmol/L Previous: 5 -20 mg/dLPROTHROMBIN [id number] 05:18:00* Test Item Value Reference Range Comments PROTIME (BEAKER) (test fmgt=193) 16.4 seconds 11.7-14.7 INR (BEAKER) (test kset=941) 1.3 <=5.9 RECOMMENDED COUMADIN/WARFARIN INR THERAPY RANGESSTANDARD DOSE: 2.0 - 3.0 Inclu connie: PROPHYLAXIS for venous thrombosis, systemic embolization; TREATMENT for lupis ous thrombosis and/or pulmonary embolus.HIGH RISK: Target INR is 2.5-3.5 for pat ients with mechanical heart valves.[id number] 05:18:00* Test Item Value Reference Range Comments FIBRINOGEN LEVEL (BEAKER) (test odxl=100) 441 mg/dl 225-434 [id number] 05:18:00* Test Item Value Reference Range Comments PARTIAL THROMBOPLASTIN TIME (BEAKER) (test fyvo=108) 31.3 seconds 22.5-36.0 CBC (HEMOGRAM ONLY)2018-02-22 05:04:00* Test Item Value Reference Range Comments WHITE BLOOD CELL COUNT (BEAKER) (test aeak=169) 13.2 K/ L 3.5-10.5 RED BLOOD CELL COUNT (BEAKER) (test bhqt=109) 3.07 M/ L 3.93-5.22 HEMOGLOBIN (BEAKER) (test qamy=532) 9.2 GM/DL 11.2-15.7 HEMATOCRIT (BEAKER) (test mdfj=453) 30.1 % 34.1-44.9 MEAN CORPUSCULAR VOLUME (BEAKER) (test imlc=605) 98.0 fL 79.4-94.8 MEAN CORPUSCULAR HEMOGLOBIN (BEAKER) (test pnaz=259) 30.0 pg 25.6-32.2 MEAN CORPUSCULAR HEMOGLOBIN CONC (BEAKER) (test qnhl=306) 30.6 GM/DL 32.2-35.5 RED CELL DISTRIBUTION WIDTH (BEAKER) (test nxqr=431) 19.5 % 11.7-14.4 PLATELET COUNT (BEAKER) (test kyot=817) 313 K/CU MM 150-450 MEAN PLATELET VOLUME (BEAKER) (test ofoq=545) 11.2 fL 9.4-12.3 NUCLEATED RED BLOOD CELLS (BEAKER) (test hpdp=678) 0 /100 WBC 0-0 CT, [id number] 02:38:00FINAL REPORT EXAMINATION: Noncontrast CT examinations of the chest, abdomen and pelvis CLINICAL HISTORY: Infection. Evaluate etiology. COMPARISON EXAM: 01/23/2018 TECHNIQUE: Axial noncontrast 5 mm tomographic images were acquired through the chest, abdomen and pelvis. Postprocessing was performed and coronal and sagittal reformatted images were created and reviewed. The exam was performed according to our departmental dose optimization program which includes automated exposure control, adjustment of the mA and/or kV according to patient's size and/or use of iterative reconstructive technique. FINDINGS: Chest: Postoperative changes are noted involving the lateral chest wall including a cutaneous row of surgical darion. A new small patchy nodular opacity is noted in the retroareolar region of the left breast which measures approximately 2-3 cm and is likely a hematoma. Infection/abscess cannot be excluded. The tip of the tracheostomy tube is in good position. Tip of the nasogastric tube is in the stomach. Tip of the feeding tube is in the descending segment of the duodenum. Evaluation the mediastinal structures is limited by the absence of contrast. Aortic ectasia is again noted. A graft is redemonstrated within the ascending thoracic aorta. No definite evidence of acute aortic mural hemorrhage. Noncontrast images of the pulmonary arteries are grossly unremarkable. The heart is mildly enlarged with a new small to moderate pericardial effusion. The esophagus is decompressed. No definite evidence of pathologic lymphadenopathy. Trace debris is noted within the trachea, likely inspissated secretions. New opacities are noted throughout both lungs. The basilar lung opacities are more confluent and associated with air bronchograms. The upper lobe opacities are groundglass and reticulonodular and morphology. There is a new small left pleural effusion which appears relatively simple. A midline sternotomy is noted. Evaluation for acute osseous injury is limited by motion degradation. Abdomen and pelvis: Limited noncontrast images of the liver are unremarkable. The gallbladder is mildly distended without evidence of pericholecystic edema or biliary dilatation. The pancreas is mildly atrophic with fatty infiltration. The spleen is normal in size measuring 10 cm. The a drenal glands are normal in size and shape. Subtle nodularity along the left adr enal gland is favored to reflect an adjacent vessel. Right kidney is unremarkabl e. As before, there is severe dilatation of the left renal collecting system wit h suspected mass effect on the left renal cortex and cortical thinning. Although the etiology is indeterminate, the finding may be related to a UPJ stenosis as the downstream left ureter is normal in caliber. Surgical clips are also noted n ear the left hilum. Therefore, a surgical clip occluding the proximal left urete r cannot be excluded. Absence of IV contrast limits further characterization. Ev aluation of the bowel is limited by the absence of contrast. The stomach is juan pablo sly unremarkable. Loops of small bowel are associated with mild gaseous distenti on and scattered fluid levels without discrete transition point. Moderate to la rge volume of gas and inspissated stool are noted throughout the colon concernin g for dysmotility/constipation. Colonic diverticulosis is noted without evidence of diverticulitis. Further characterization of the bowel including the appendix is limited by the absence of contrast. The abdominal aorta is normal in caliber. Further characterization the vascular structures is limited by the absence of contrast. Uterus and adnexa are unremarkable. The bladder is decompressed with a Camargo catheter. Trace fluid is noted in the pelvis. There is focal infiltration of the right groin soft tissues, nonspecific but possibly related to small volu me of hemorrhage given the adjacent surgical clips. Asymmetric fluid is also not ed along the ventral margin of the right proximal thigh musculature. There is di ffuse infiltration of the abdominal and pelvic subcutaneous tissues compatible w ith a component of anasarca. No definite evidence of an acute osseous abnormalit y. IMPRESSION: New bilateral parenchymal lung opacities. Although a component o f atelectasis is suspected, a multifocal pneumonia should also be considered. Mi ld superimposed pulmonary edema may cannot be excluded. Small simple appearing l eft pleural effusion, possibly parapneumonic. Severe left hydronephrosis, simila r to prior study 01/23/2018 but new compared with 07/23/2011. Absence of IV contra st limits further characterization. Etiology indeterminant. UPJ stenosis would b e a consideration. Occlusion related to one of the left perinephric retroperiton eal surgical clips cannot be excluded. Consider follow-up with urology if approp riate. Left chest wall postoperative changes. Left breast retroareolar 2-3 cm no dule, hematoma favored. Phlegmon/abscess cannot be excluded. Right inguinal and right proximal thigh asymmetric complex fluid. Hemorrhage again favored. Infect ion cannot be excluded. 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 No definite noncontrast evidence of acute aortic pathology. Gas eous distention of the bowel and relatively large volume of inspissated stool th roughout the colon suggesting dysmotility/constipation and possible ileus. New m ild cardiac enlargement and new small-moderate pericardial effusion. Colonic div erticulosis without evidence of diverticulitis. Body wall anasarca. Trace ascite s. Signed: Richard Valdez MDReport Verified Date/Time: 02/22/2018 02:38:36 Vicente morin Location: [address] Reading Room -GLUCOSE [id number] 23:54:00 * Test Item Value Reference Range Comments POC-GLUCOSE METER (BEAKER) (test mdct=6314) 128 mg/dL 70-110 TESTED AT [place] [id number] [facility] [address] POCT-GLUCOSE [id number] 17:41:00* Test Item Value Reference Range Comments POC-GLUCOSE METER (BEAKER) (test bycj=0101) 127 mg/dL 70-110 TESTED AT [place] [id number] [facility] [address] [id number] 17:18:00* Test Item Value Reference Range Comments PARTIAL THROMBOPLASTIN TIME (MediaPhy) (test xdyd=318) 35.9 seconds 22.5-36.0 [id number] 17:17:00* Test Item Value Reference Range Comments FIBRINOGEN LEVEL (CASEY) (test qnwo=546) 427 mg/dl 225-434 CMV PCR, [id number] 14:02:00* Test Item Value Reference Range Comments CMV VIRAL LOAD - NEGATIVE (CASEY) (test dauy=2958) Negative or below the linear range of the assay (<375 copies/mL) Cytomegalovirus (CMV) infection can cause significant disease in immunosuppresse d patients. However, it is common for CMV to manifest as a limited infection whi ch is of no clinical significance in immunosuppressed patients or in healthy ind ividuals.Viral load measurements are helpful to identify clinical CMV infection and to guide the pre-emptive management of antiviral therapy. For treatment of CMV infection due to reactivation in transplant recipients, a threshold between 4,000 and 5,000 copies/mL is suggested. For treatment of primary CMV infection, a lower threshold can be used.CMV infection may also be monitored using weekly serial measurements. Serial measurements of CMV DNA viral load can be evaluated by identifying a 10-fold change, as well as assessing the CMV DNA viral load and the clinical context for each patient.The plasma CMV DNA viral load was detected using quantitative polymerase chain reaction and fluorescent monitoring of a s pecific hybridized probe. Genetic variation and other factors can affect the acc uracy of nucleic acid testing. Therefore, the results should be interpreted in l ight of clinical data. A negative result may not exclude the presence of CMV dis ease.This test was developed and its performance characteristics determined by [facility] Pathology Department, Section of Molecular Patholog y. It has not been cleared or approved by the U.S. Food and Drug Administration (FDA), since FDA approval is not required for clinical use of the test. Validati on was done as required by The Clinical Laboratory Improvement Amendments of 198 8.[id number] 13:58:00* Test Item Value Reference Range Comments PREALBUMIN (CASEY) (test ylpr=310) 25 mg/dL 14-45 POCT-GLUCOSE [id number] 12:31:00* Test Item Value Reference Range Comments POC-GLUCOSE METER (BEAKER) (test ndde=9114) 142 mg/dL 70-110 TESTED AT [facility] [address] [facility] [address] RAD, CHEST, 1 VIEW, NON [id number] 08:24:00Reason for exam:->respiratory failureShould this be performed at the bedside?->YesIs the patient ?-> UnknownFINAL REPORT TECHNIQUE: Frontal chest radiograph dated 02/21/2018. CLINICAL HISTORY: Respiratory failure COMPARISON STUDY: Chest radiograph dated 02/20/2018 IMPRESSION:Life support tubes and lines are unchanged in appearance. There is stable airspace disease in the left lung. Small left pleural effusion is unchanged. No pneumothorax. Cardiomediastinal silhouette is normal in size. No pulmonary edema. Midline sternotomy wires are intact and well aligned. No fracture. Signed: Prakash [place] Verified Date/Time: 02/21/2018 08:24:31 Reading Location: [facility] Radiology Reading Room (HEMOGRAM ONLY)2018-02-21 07:41:00* Test Item Value Reference Range Comments WHITE BLOOD CELL COUNT (BEAKER) (test blgl=299) 12.8 K/ L 3.5-10.5 RED BLOOD CELL COUNT (BEAKER) (test ashs=220) 2.77 M/ L 3.93-5.22 HEMOGLOBIN (BEAKER) (test hjen=233) 8.5 GM/DL 11.2-15.7 HEMATOCRIT (BEAKER) (test rduh=956) 27.9 % 34.1-44.9 MEAN CORPUSCULAR VOLUME (BEAKER) (test zsri=656) 100.7 fL 79.4-94.8 MEAN CORPUSCULAR HEMOGLOBIN (BEAKER) (test jvuu=743) 30.7 pg 25.6-32.2 MEAN CORPUSCULAR HEMOGLOBIN CONC (BEAKER) (test bewl=786) 30.5 GM/DL 32.2-35.5 RED CELL DISTRIBUTION WIDTH (BEAKER) (test ubqf=293) 19.8 % 11.7-14.4 PLATELET COUNT (BEAKER) (test vrpt=883) 257 K/CU MM 150-450 MEAN PLATELET VOLUME (BEAKER) (test gtig=240) 11.7 fL 9.4-12.3 NUCLEATED RED BLOOD CELLS (BEAKER) (test tvtf=545) 0 /100 WBC 0-0 POCT-GLUCOSE [id number] 06:35:00* Test Item Value Reference Range Comments POC-GLUCOSE METER (BEAKER) (test qggt=1529) 132 mg/dL 70-110 TESTED AT [facility] [address] [facility] [address] BLOOD GAS, [id number] 05:52:00* Test Item Value Reference Range Comments PH ARTERIAL (BEAKER) (test agsl=006) 7.43 7.35-7.45 PCO2 ARTERIAL (BEAKER) (test nygl=250) 34 mmHg 35-45 PO2 ARTERIAL (BEAKER) (test gkcr=363) 97 mmHg 80-90 O2 SATURATION ARTERIAL (BEAKER) (test nvxo=260) 97.5 % 96.0-97.0 HCO3 ARTERIAL (BEAKER) (test xurz=733) 22 mmol/L 21-29 BASE EXCESS ARTERIAL (BEAKER) (test rxds=685) -1.7 mmol/L -2.0-3.0 PATIENT TEMPERATURE (BEAKER) (test ahzn=3264) 37.5 C FIO2 (BEAKER) (test yabq=3409) 70.0 % CALCIUM, [id number] 05:52:00* Test Item Value Reference Range Comments CALCIUM IONIZED (BEAKER) (test wmtl=157) 1.06 mmol/L 1.12-1.27 PH, BLOOD (BEAKER) (test yilu=3079) 7.44 OXYGEN SATURATION, [id number] 05:43:00* Test Item Value Reference Range Comments O2 SATURATION (MEASURED) (BEAKER) (test rmbr=6341) 66.1 % BASIC METABOLIC [id number] 05:36:00* Test Item Value Reference Range Comments SODIUM (BEAKER) (test fwqf=712) 146 meq/L 136-145 POTASSIUM (BEAKER) (test ubzz=163) 4.2 meq/L 3.5-5.1 CHLORIDE (BEAKER) (test unfc=422) 116 meq/L 98-107 CO2 (BEAKER) (test gkct=640) 21 meq/L 22-29 BLOOD UREA NITROGEN (BEAKER) (test pwfh=897) 55 mg/dL 7-21 CREATININE (BEAKER) (test slda=328) 1.52 mg/dL 0.57-1.25 GLUCOSE RANDOM (BEAKER) (test qbwx=701) 134 mg/dL 70-105 CALCIUM (BEAKER) (test ujwp=947) 7.8 mg/dL 8.4-10.2 EGFR (BEAKER) (test kvwn=6074) 36 mL/min/1.73 sq m ESTIMATED GFR IS NOT ACCURATE CREATININE CLEARANCE IN PREDICTING GLOMERULAR FILTRATION RATE. ESTIMATED GFR IS NOT APPLICABLE FOR DIALYSIS PATIENTS. [id number] 05:31:00* Test Item Value Reference Range Comments PHOSPHORUS (BEAKER) (test fdtk=561) 2.7 mg/dL 2.3-4.7 [id number] 05:31:00* Test Item Value Reference Range Comments MAGNESIUM (BEAKER) (test onzv=429) 2.7 mg/dL 1.6-2.6 HEPATIC FUNCTION [id number] 05:31:00* Test Item Value Reference Range Comments TOTAL PROTEIN (BEAKER) (test yzsn=511) 5.4 gm/dL 6.0-8.3 ALBUMIN (BEAKER) (test qzte=6674) 3.0 g/dL 3.5-5.0 BILIRUBIN TOTAL (BEAKER) (test wsoj=402) 1.6 mg/dL 0.2-1.2 BILIRUBIN DIRECT (BEAKER) (test vjml=357) 1.0 mg/dL 0.1-0.5 ALKALINE PHOSPHATASE (BEAKER) (test rntm=463) 129 U/L 40-150 AST (SGOT) (BEAKER) (test kakn=963) 29 U/L 5-34 ALT (SGPT) (BEAKER) (test ommf=848) 36 U/L 6-55 [id number] 05:27:00* Test Item Value Reference Range Comments PARTIAL THROMBOPLASTIN TIME (BEAKER) (test hwbj=713) 30.3 seconds 22.5-36.0 [id number] 05:27:00* Test Item Value Reference Range Comments FIBRINOGEN LEVEL (BEAKER) (test drvn=617) 426 mg/dl 225-434 PROTHROMBIN [id number] 05:26:00* Test Item Value Reference Range Comments PROTIME (BEAKER) (test qakv=789) 16.3 seconds 11.7-14.7 INR (BEAKER) (test mjmv=525) 1.3 <=5.9 RECOMMENDED COUMADIN/WARFARIN INR THERAPY RANGESSTANDARD DOSE: 2.0 - 3.0 Inclu connie: PROPHYLAXIS for venous thrombosis, systemic embolization; TREATMENT for lupis ous thrombosis and/or pulmonary embolus.HIGH RISK: Target INR is 2.5-3.5 for pat ients with mechanical heart valves.LACTIC ACID, ARTERIAL, WHOLE [id number] 05:20:00* Test Item Value Reference Range Comments LACTATE BLOOD ARTERIAL (2) (BEAKER) (test ceth=6373) 1.7 mmol/L 0.5-2.2 Effective 03/10/2016: Units/Reference Range ChangeNew: 0.5-2.2 mmol/L Previous: 5 -20 mg/dLPOCT-GLUCOSE [id number] 18:54:00* Test Item Value Reference Range Comments POC-GLUCOSE METER (BEAKER) (test lpvo=8898) 174 mg/dL 70-110 TESTED AT [facility] [address] [facility] [address] BLOOD [id number] 18:00:00* Test Item Value Reference Range Comments CULTURE (BEAKER) (test pydc=1653) No growth in 5 days BLOOD [id number] 18:00:00* Test Item Value Reference Range Comments CULTURE (BEAKER) (test bfek=4147) No growth in 5 days [id number] 16:57:00* Test Item Value Reference Range Comments FIBRINOGEN LEVEL (BEAKER) (test sxxf=957) 497 mg/dl 225-434 [id number] 16:57:00* Test Item Value Reference Range Comments PARTIAL THROMBOPLASTIN TIME (BEAKER) (test ucqp=420) 32.3 seconds 22.5-36.0 BLOOD GAS, [id number] 13:19:00* Test Item Value Reference Range Comments PH ARTERIAL (BEAKER) (test siih=333) 7.44 7.35-7.45 PCO2 ARTERIAL (BEAKER) (test dptp=822) 33 mmHg 35-45 PO2 ARTERIAL (BEAKER) (test fral=016) 80 mmHg 80-90 O2 SATURATION ARTERIAL (BEAKER) (test amso=894) 96.0 % 96.0-97.0 HCO3 ARTERIAL (BEAKER) (test fqpa=808) 22 mmol/L 21-29 BASE EXCESS ARTERIAL (BEAKER) (test myej=924) -1.5 mmol/L -2.0-3.0 PATIENT TEMPERATURE (BEAKER) (test karx=1337) 37.6 C FIO2 (BEAKER) (test xjvs=1907) 70.0 % POCT-GLUCOSE [id number] 12:26:00* Test Item Value Reference Range Comments POC-GLUCOSE METER (BEAKER) (test ntlu=3191) 179 mg/dL 70-110 TESTED AT [address] [address] BLOOD GAS, [id number] 07:01:00* Test Item Value Reference Range Comments PH ARTERIAL (BEAKER) (test hynm=208) 7.42 7.35-7.45 PCO2 ARTERIAL (BEAKER) (test sdtk=693) 36 mmHg 35-45 PO2 ARTERIAL (BEAKER) (test rsrn=766) 69 mmHg 80-90 O2 SATURATION ARTERIAL (BEAKER) (test gqjo=996) 93.5 % 96.0-97.0 HCO3 ARTERIAL (BEAKER) (test devj=612) 23 mmol/L 21-29 BASE EXCESS ARTERIAL (BEAKER) (test smax=897) -1.1 mmol/L -2.0-3.0 PATIENT TEMPERATURE (BEAKER) (test zdse=3192) 37.9 C FIO2 (BEAKER) (test bbnh=6583) 70.0 % OXYGEN SATURATION, [id number] 06:20:00* Test Item Value Reference Range Comments O2 SATURATION (MEASURED) (BEAKER) (test mdnz=6216) 63.7 % POCT-GLUCOSE [id number] 06:14:00* Test Item Value Reference Range Comments POC-GLUCOSE METER (BEAKER) (test ipjk=9817) 163 mg/dL 70-110 TESTED AT [address] [address] CBC (HEMOGRAM ONLY)2018-02-20 05:55:00* Test Item Value Reference Range Comments WHITE BLOOD CELL COUNT (BEAKER) (test tdke=708) 14.3 K/ L 3.5-10.5 RED BLOOD CELL COUNT (BEAKER) (test jytk=437) 2.91 M/ L 3.93-5.22 HEMOGLOBIN (BEAKER) (test cesh=678) 8.7 GM/DL 11.2-15.7 HEMATOCRIT (BEAKER) (test poug=276) 28.8 % 34.1-44.9 MEAN CORPUSCULAR VOLUME (BEAKER) (test ftuv=575) 99.0 fL 79.4-94.8 MEAN CORPUSCULAR HEMOGLOBIN (BEAKER) (test ufgn=520) 29.9 pg 25.6-32.2 MEAN CORPUSCULAR HEMOGLOBIN CONC (BEAKER) (test rtwg=806) 30.2 GM/DL 32.2-35.5 RED CELL DISTRIBUTION WIDTH (BEAKER) (test vlmq=121) 20.4 % 11.7-14.4 PLATELET COUNT (BEAKER) (test nrmj=654) 270 K/CU MM 150-450 MEAN PLATELET VOLUME (BEAKER) (test ahsk=664) 11.1 fL 9.4-12.3 NUCLEATED RED BLOOD CELLS (BEAKER) (test krik=017) 0 /100 WBC 0-0 CALCIUM, [id number] 05:50:00* Test Item Value Reference Range Comments CALCIUM IONIZED (BEAKER) (test xdgk=605) 1.10 mmol/L 1.12-1.27 PH, BLOOD (BEAKER) (test yxli=4324) 7.45 LACTIC ACID, ARTERIAL, WHOLE [id number] 05:46:00* Test Item Value Reference Range Comments LACTATE BLOOD ARTERIAL (2) (BEAKER) (test ozzw=0886) 2.3 mmol/L 0.5-2.2 Specimen slightly hemolyzed Effective 03/10/2016: Units/Reference Range ChangeNew: 0.5-2.2 mmol/L Previous: 5 -20 mg/[id number] 05:41:00* Test Item Value Reference Range Comments FIBRINOGEN LEVEL (BEAKER) (test vzss=699) 475 mg/dl 225-434 [id number] 05:41:00* Test Item Value Reference Range Comments PARTIAL THROMBOPLASTIN TIME (BEAKER) (test fdyh=383) 32.4 seconds 22.5-36.0 [id number] 05:40:00* Test Item Value Reference Range Comments PHOSPHORUS (BEAKER) (test qkyq=738) 2.4 mg/dL 2.3-4.7 [id number] 05:40:00* Test Item Value Reference Range Comments MAGNESIUM (BEAKER) (test ryjy=715) 3.0 mg/dL 1.6-2.6 BASIC METABOLIC [id number] 05:40:00* Test Item Value Reference Range Comments SODIUM (BEAKER) (test edby=471) 148 meq/L 136-145 POTASSIUM (BEAKER) (test lmmg=629) 3.8 meq/L 3.5-5.1 CHLORIDE (BEAKER) (test whqo=022) 117 meq/L 98-107 CO2 (BEAKER) (test xxra=907) 20 meq/L 22-29 BLOOD UREA NITROGEN (BEAKER) (test cwbc=592) 60 mg/dL 7-21 CREATININE (BEAKER) (test dbcs=705) 1.74 mg/dL 0.57-1.25 GLUCOSE RANDOM (BEAKER) (test ypuw=079) 147 mg/dL 70-105 CALCIUM (BEAKER) (test kyfx=765) 8.1 mg/dL 8.4-10.2 EGFR (BEAKER) (test pcyw=4383) 31 mL/min/1.73 sq m ESTIMATED GFR IS NOT ACCURATE CREATININE CLEARANCE IN PREDICTING GLOMERULAR FILTRATION RATE. ESTIMATED GFR IS NOT APPLICABLE FOR DIALYSIS PATIENTS. HEPATIC FUNCTION [id number] 05:40:00* Test Item Value Reference Range Comments TOTAL PROTEIN (BEAKER) (test ugro=429) 5.9 gm/dL 6.0-8.3 ALBUMIN (BEAKER) (test qdqi=8408) 3.2 g/dL 3.5-5.0 BILIRUBIN TOTAL (BEAKER) (test hkxl=362) 1.8 mg/dL 0.2-1.2 BILIRUBIN DIRECT (BEAKER) (test wzgk=168) 1.1 mg/dL 0.1-0.5 ALKALINE PHOSPHATASE (BEAKER) (test ltnj=819) 146 U/L 40-150 AST (SGOT) (BEAKER) (test bolo=783) 35 U/L 5-34 ALT (SGPT) (BEAKER) (test ysmm=660) 43 U/L 6-55 PROTHROMBIN [id number] 05:40:00* Test Item Value Reference Range Comments PROTIME (BEAKER) (test unuh=027) 19.4 seconds 11.7-14.7 INR (BEAKER) (test zaiv=814) 1.6 <=5.9 RECOMMENDED COUMADIN/WARFARIN INR THERAPY RANGESSTANDARD DOSE: 2.0 - 3.0 Inclu connie: PROPHYLAXIS for venous thrombosis, systemic embolization; TREATMENT for lupis ous thrombosis and/or pulmonary embolus.HIGH RISK: Target INR is 2.5-3.5 for pat ients with mechanical heart valves.RAD, CHEST, 1 VIEW, NON [id number] 04:42:00Reason for exam:->respiratory failureShould this be performed at the bedside?->YesIs the patient ?->UnknownFINAL REPORT EXAMINATION: AP PORTABLE CHEST RADIOGRAPH CLINICAL INDICATION: Respiratory failure IMPRESSION: Compared with February 19, 2018 Support tube and catheter positions are unchanged. Stable opacities are again noted in both lungs, left greater than right. The superimposed left-sided pleural effusion is also stable. Cardiac and mediastinal contours are unchanged. No evidence of new lung consolidation or pneumothorax. In summary, no significant interval change. Signed: Richard Valdez Verified Date/Time: 02/20/2018 04:42:08 Reading Location: [address] Reading Room -GLUCOSE [id number] 00:41:00 * Test Item Value Reference Range Comments POC-GLUCOSE METER (BEAKER) (test qcxm=9752) 192 mg/dL 70-110 TESTED AT [address] [address] BASIC METABOLIC [id number] 18:33:00* Test Item Value Reference Range Comments SODIUM (BEAKER) (test tjbd=327) 149 meq/L 136-145 POTASSIUM (BEAKER) (test tqis=458) 4.0 meq/L 3.5-5.1 CHLORIDE (BEAKER) (test gdsj=827) 117 meq/L 98-107 CO2 (BEAKER) (test ldkn=856) 22 meq/L 22-29 BLOOD UREA NITROGEN (BEAKER) (test sezh=425) 62 mg/dL 7-21 CREATININE (BEAKER) (test ecxz=556) 1.87 mg/dL 0.57-1.25 GLUCOSE RANDOM (BEAKER) (test pqfp=719) 177 mg/dL 70-105 CALCIUM (BEAKER) (test aqna=475) 8.1 mg/dL 8.4-10.2 EGFR (BEAKER) (test xrxk=0885) 28 mL/min/1.73 sq m ESTIMATED GFR IS NOT ACCURATE CREATININE CLEARANCE IN PREDICTING GLOMERULAR FILTRATION RATE. ESTIMATED GFR IS NOT APPLICABLE FOR DIALYSIS PATIENTS. POCT-GLUCOSE [id number] 17:59:00* Test Item Value Reference Range Comments POC-GLUCOSE METER (BEAKER) (test myuw=8755) 166 mg/dL 70-110 TESTED AT [facility] [address] [facility] [address] [id number] 15:31:00* Test Item Value Reference Range Comments FIBRINOGEN LEVEL (BEAKER) (test nedw=173) 504 mg/dl 225-434 [id number] 15:31:00* Test Item Value Reference Range Comments PARTIAL THROMBOPLASTIN TIME (BEAKER) (test whxo=530) 35.3 seconds 22.5-36.0 POCT-GLUCOSE [id number] 12:02:00* Test Item Value Reference Range Comments POC-GLUCOSE METER (BEAKER) (test leyt=8950) 175 mg/dL 70-110 TESTED AT [facility] [address] [facility] [address] CORTISOL,60 [id number] 10:42:00* Test Item Value Reference Range Comments CORTISOL BASELINE NETWORKED (BEAKER) (test avhf=6615) 15.2 mcg/dL CORTISOL 30 MINUTE NETWORKED (BEAKER) (test gcwo=0238) 23.9 mcg/dL CORTISOL, 60 MINUTE (BEAKER) (test vtez=6314) 27.6 ug/dL ACTH STIMULATION TEST INTERPRETATION GUIDELINES(Synonyms: Cortrosyn Test, Co syntropin or Corticotropin Stimulation Test)Adenocorticotropic hormone (ACTH)is a tropic hormone, made in the pituitary gland, which travels trhough the bloodst ream and stimulates the cortex of the adrenal glands to release cortisol. Cortis ol is a primary hormone, which aids the body's metabolism of fats, carbohydrates , and protein as well as sodium and potassium regulation.ACTH Stimulation Test: Exogenous administration of biologically active ACTH stimulates the secretion of cortisol from the adrenal gland. This test is used to evaluate adrenal function by measuring cortisol levels at baseline and at 30 and 60 minutes after the adm inistration of 250 micrograms of cosyntropin (Cortrosyn). Patients who have rece ived exogenous corticosteroids immediately prior to performing the ACTH Stimulat ion Test will often have elevated baseline cortisol levels, which may lead to er roneous interpretation of test results. The notable exception is with dexamethas one.Normal Response: An increase in cortisol after stimulation by ACTH is normal . Post-stimulation cortisol concentration should be greater than 20 mcg/dL or th e rate of rise from baseline cortisol should be greater than or equal to 9 mcg/d L.Patients with sepsis or septic shock: According to a study by Alicia et al (JA [place] 2000,283(8):1038-45), the ACTH Stimulation Test provides important prognostic information. This study defined 3 groups of patients with sepsis or septic shoc k: 1. Good Survival: Low basal cortisol (<or=34 mcg/dL) and high ACTH response (>9mcg/dL) 2. Intermediate Survival: Low basal cortisol (<34 mcg/dL) and low response to ACTH (<or=9 mcg/dL) OR High basal cortisol (>34 mcg/dL) or high ACTH response (>9 mcg/dL) 3. Poor Survival: High basal cortisol (>34 mcg/dL) and low ACTH response (<or=9 mcg/dL).Treatment of patients with relative adrenal dysfunction may be indicated based on test results and the clinical condition of the patient. Additional information, including treatment recommendations, is available in critically ill patients, approved by the Pharmacy, Nutrition, and Therapeutics Committee on 10/16/2004 and available through the Pharmacy Policy and Procedure Section on The Source.Do not run this test if systemic hydrocortisone, methylprednisolone, prednisolone or prednisone has been administered within the past 24 hours. Draw baseline cortisol level just prior to cosyntropin administration. Administer cosyntropin 0.25 mg diluted in 2-5 mL of normal saline slow IV Push over a period of 2 minutes. Draw serum cortisol level 30 minutes after cosyntropin administration. Draw serum cortisol level 60 minutes after cosyntropin administration. CORTISOL,30 [id number] 09:44:00* Test Item Value Reference Range Comments CORTISOL BASELINE NETWORKED (BEAKER) (test qbza=6937) 15.2 mcg/dL CORTISOL, 30 MINUTE (BEAKER) (test rqtk=4268) 23.9 ug/dL ACTH STIMULATION TEST INTERPRETATION GUIDELINES(Synonyms: Cortrosyn Test, Co syntropin or Corticotropin Stimulation Test)Adenocorticotropic hormone (ACTH)is a tropic hormone, made in the pituitary gland, which travels trhough the bloodst ream and stimulates the cortex of the adrenal glands to release cortisol. Cortis ol is a primary hormone, which aids the body's metabolism of fats, carbohydrates , and protein as well as sodium and potassium regulation.ACTH Stimulation Test: Exogenous administration of biologically active ACTH stimulates the secretion of cortisol from the adrenal gland. This test is used to evaluate adrenal function by measuring cortisol levels at baseline and at 30 and 60 minutes after the adm inistration of 250 micrograms of cosyntropin (Cortrosyn). Patients who have rece ived exogenous corticosteroids immediately prior to performing the ACTH Stimulat ion Test will often have elevated baseline cortisol levels, which may lead to er roneous interpretation of test results. The notable exception is with dexamethas one.Normal Response: An increase in cortisol after stimulation by ACTH is normal . Post-stimulation cortisol concentration should be greater than 20 mcg/dL or th e rate of rise from baseline cortisol should be greater than or equal to 9 mcg/d L.Patients with sepsis or septic shock: According to a study by Alicia et al (JA [place] 2000,283(8):6842-45), the ACTH Stimulation Test provides important prognostic information. This study defined 3 groups of patients with sepsis or septic shoc k: 1. Good Survival: Low basal cortisol (<or=34 mcg/dL) and high ACTH response (>9mcg/dL) 2. Intermediate Survival: Low basal cortisol (<34 mcg/dL) and low response to ACTH (<or=9 mcg/dL) OR High basal cortisol (>34 mcg/dL) or high ACTH response (>9 mcg/dL) 3. Poor Survival: High basal cortisol (>34 mcg/dL) and low ACTH response (<or=9 mcg/dL).Treatment of patients with relative adrenal dysfunction may be indicated based on test results and the clinical condition of the patient. Additional information, including treatment recommendations, is available in critically ill patients, approved by the Pharmacy, Nutrition, and Therapeutics Committee on 10/16/2004 and available through the Pharmacy Policy and Procedure Section on The Source.Do not run this test if systemic hydrocortisone, methylprednisolone, prednisolone or prednisone has been administered within the past 24 hours. Draw baseline cortisol level just prior to cosyntropin administration. Administer cosyntropin 0.25 mg diluted in 2-5 mL of normal saline slow IV Push over a period of 2 minutes. Draw serum cortisol level 30 minutes after cosyntropin administration. Draw serum cortisol level 60 minutes after cosyntropin administration.RAD, CHEST, 1 VIEW, NON [id number] 09:03:00Reason for exam:->respiratory failureShould this be performed at the bedside?->YesIs the patient ?-> UnknownFINAL REPORT Chest, one view. HISTORY: Respiratory failure COMPARISON: 02/18/2018 IMPRESSION: Supporting hardware unchanged in position. Unchanged mixed interstitial and airspace opacities bilaterally, left. The right. Unchanged small left pleural effusion. No identifiable pneumothorax. Signed: Seth Merritt MDReport Verified Date/Time: 02/19/2018 09:03:13 Reading Location: [address] Body Reading Room ISOL,[id number] 08:44:00* Test Item Value Reference Range Comments CORTISOL, BASELINE (BEAKER) (test ecjs=5028) 15.2 ug/dL ACTH STIMULATION TEST INTERPRETATION GUIDELINES(Synonyms: Cortrosyn Test, Co syntropin or Corticotropin Stimulation Test)Adenocorticotropic hormone (ACTH)is a tropic hormone, made in the pituitary gland, which travels trhough the bloodst ream and stimulates the cortex of the adrenal glands to release cortisol. Cortis ol is a primary hormone, which aids the body's metabolism of fats, carbohydrates , and protein as well as sodium and potassium regulation.ACTH Stimulation Test: Exogenous administration of biologically active ACTH stimulates the secretion of cortisol from the adrenal gland. This test is used to evaluate adrenal function by measuring cortisol levels at baseline and at 30 and 60 minutes after the adm inistration of 250 micrograms of cosyntropin (Cortrosyn). Patients who have rece ived exogenous corticosteroids immediately prior to performing the ACTH Stimulat ion Test will often have elevated baseline cortisol levels, which may lead to er roneous interpretation of test results. The notable exception is with dexamethas one.Normal Response: An increase in cortisol after stimulation by ACTH is normal . Post-stimulation cortisol concentration should be greater than 20 mcg/dL or th e rate of rise from baseline cortisol should be greater than or equal to 9 mcg/d L.Patients with sepsis or septic shock: According to a study by Alicia et al (MICHELE LAUREN 1999,283(8):1038-45), the ACTH Stimulation Test provides important prognostic information. This study defined 3 groups of patients with sepsis or septic shoc k: 1. Good Survival: Low basal cortisol (<or=34 mcg/dL) and high ACTH response (>9mcg/dL) 2. Intermediate Survival: Low basal cortisol (<34 mcg/dL) and low response to ACTH (<or=9 mcg/dL) OR High basal cortisol (>34 mcg/dL) or high ACTH response (>9 mcg/dL) 3. Poor Survival: High basal cortisol (>34 mcg/dL) and low ACTH response (<or=9 mcg/dL).Treatment of patients with relative adrenal dysfunction may be indicated based on test results and the clinical condition of the patient. Additional information, including treatment recommendations, is available in critically ill patients, approved by the Pharmacy, Nutrition, and Therapeutics Committee on 10/16/2004 and available through the Pharmacy Policy and Procedure Section on The Source.Do not run this test if systemic hydrocortisone, methylprednisolone, prednisolone or prednisone has been administered within the past 24 hours. Draw baseline cortisol level just prior to cosyntropin administration. Administer cosyntropin 0.25 mg diluted in 2-5 mL of normal saline slow IV Push over a period of 2 minutes. Draw serum cortisol level 30 minutes after cosyntropin administration. Draw serum cortisol level 60 minutes after cosyntropin administration.POCT- GLUCOSE [id number] 06:25:00* Test Item Value Reference Range Comments POC-GLUCOSE METER (MediaPhy) (test vsmn=3945) 157 mg/dL 70-110 TESTED AT [facility] [address] [facility] [address] CALCIUM, [id number] 05:48:00* Test Item Value Reference Range Comments CALCIUM IONIZED (BEAKER) (test undu=784) 1.09 mmol/L 1.12-1.27 PH, BLOOD (BEAKER) (test cgtb=8256) 7.44 BLOOD GAS, [id number] 05:47:00* Test Item Value Reference Range Comments PH ARTERIAL (BEAKER) (test irqf=594) 7.44 7.35-7.45 PCO2 ARTERIAL (BEAKER) (test zmor=434) 33 mmHg 35-45 PO2 ARTERIAL (BEAKER) (test jowc=740) 125 mmHg 80-90 O2 SATURATION ARTERIAL (BEAKER) (test irby=335) 98.6 % 96.0-97.0 HCO3 ARTERIAL (BEAKER) (test fwjf=289) 22 mmol/L 21-29 BASE EXCESS ARTERIAL (BEAKER) (test dcxq=824) -1.6 mmol/L -2.0-3.0 PATIENT TEMPERATURE (BEAKER) (test muaj=7175) 37.0 C FIO2 (BEAKER) (test wxcy=9722) 60.0 % OXYGEN SATURATION, [id number] 05:23:00* Test Item Value Reference Range Comments O2 SATURATION (MEASURED) (BEAKER) (test ejay=7532) 65.8 % BASIC METABOLIC [id number] 04:36:00* Test Item Value Reference Range Comments SODIUM (BEAKER) (test pyvr=867) 149 meq/L 136-145 POTASSIUM (BEAKER) (test eutw=249) 4.5 meq/L 3.5-5.1 CHLORIDE (BEAKER) (test crps=785) 118 meq/L 98-107 CO2 (BEAKER) (test ncdx=848) 20 meq/L 22-29 BLOOD UREA NITROGEN (BEAKER) (test ybmt=575) 65 mg/dL 7-21 CREATININE (BEAKER) (test ourx=955) 1.79 mg/dL 0.57-1.25 GLUCOSE RANDOM (BEAKER) (test wavx=773) 155 mg/dL 70-105 CALCIUM (BEAKER) (test irss=482) 7.9 mg/dL 8.4-10.2 EGFR (BEAKER) (test kmwu=4018) 30 mL/min/1.73 sq m ESTIMATED GFR IS NOT ACCURATE CREATININE CLEARANCE IN PREDICTING GLOMERULAR FILTRATION RATE. ESTIMATED GFR IS NOT APPLICABLE FOR DIALYSIS PATIENTS. VANCOMYCIN LEVEL, [id number] 04:35:00* Test Item Value Reference Range Comments VANCOMYCIN TROUGH (BEAKER) (test nkxo=350) 15.7 ug/mL 10.0-20.0 [id number] 04:29:00* Test Item Value Reference Range Comments PHOSPHORUS (BEAKER) (test vqjn=495) 2.9 mg/dL 2.3-4.7 [id number] 04:29:00* Test Item Value Reference Range Comments MAGNESIUM (BEAKER) (test argo=109) 2.9 mg/dL 1.6-2.6 HEPATIC FUNCTION [id number] 04:29:00* Test Item Value Reference Range Comments TOTAL PROTEIN (BEAKER) (test qqbt=215) 5.4 gm/dL 6.0-8.3 ALBUMIN (BEAKER) (test fgfs=9857) 3.0 g/dL 3.5-5.0 BILIRUBIN TOTAL (BEAKER) (test axpi=595) 2.1 mg/dL 0.2-1.2 BILIRUBIN DIRECT (BEAKER) (test fvuj=194) 1.3 mg/dL 0.1-0.5 ALKALINE PHOSPHATASE (BEAKER) (test yjww=762) 125 U/L 40-150 AST (SGOT) (BEAKER) (test bbfa=567) 43 U/L 5-34 ALT (SGPT) (BEAKER) (test wzna=912) 46 U/L 6-55 [id number] 04:22:00* Test Item Value Reference Range Comments PARTIAL THROMBOPLASTIN TIME (BEAKER) (test xlev=774) 36.8 seconds 22.5-36.0 PROTHROMBIN [id number] 04:21:00* Test Item Value Reference Range Comments PROTIME (BEAKER) (test fxkg=242) 16.8 seconds 11.7-14.7 INR (BEAKER) (test cmul=337) 1.4 <=5.9 RECOMMENDED COUMADIN/WARFARIN INR THERAPY RANGESSTANDARD DOSE: 2.0 - 3.0 Inclu connie: PROPHYLAXIS for venous thrombosis, systemic embolization; TREATMENT for lupis ous thrombosis and/or pulmonary embolus.HIGH RISK: Target INR is 2.5-3.5 for pat ients with mechanical heart valves.[id number] 04:21:00* Test Item Value Reference Range Comments FIBRINOGEN LEVEL (BEAKER) (test jwth=126) 480 mg/dl 225-434 LACTIC ACID, ARTERIAL, WHOLE [id number] 04:11:00* Test Item Value Reference Range Comments LACTATE BLOOD ARTERIAL (2) (BEAKER) (test hycp=5085) 1.4 mmol/L 0.5-2.2 Specimen slightly hemolyzed Effective 03/10/2016: Units/Reference Range ChangeNew: 0.5-2.2 mmol/L Previous: 5 -20 mg/dLCBC (HEMOGRAM ONLY)2018-02-19 04:03:00* Test Item Value Reference Range Comments WHITE BLOOD CELL COUNT (BEAKER) (test oqfq=464) 14.4 K/ L 3.5-10.5 RED BLOOD CELL COUNT (BEAKER) (test ffyc=004) 2.81 M/ L 3.93-5.22 HEMOGLOBIN (BEAKER) (test aauc=372) 8.4 GM/DL 11.2-15.7 HEMATOCRIT (BEAKER) (test rudz=402) 27.8 % 34.1-44.9 MEAN CORPUSCULAR VOLUME (BEAKER) (test mxky=733) 98.9 fL 79.4-94.8 MEAN CORPUSCULAR HEMOGLOBIN (BEAKER) (test ggpn=632) 29.9 pg 25.6-32.2 MEAN CORPUSCULAR HEMOGLOBIN CONC (BEAKER) (test lbri=033) 30.2 GM/DL 32.2-35.5 RED CELL DISTRIBUTION WIDTH (BEAKER) (test juzc=167) 20.6 % 11.7-14.4 PLATELET COUNT (BEAKER) (test cxis=012) 243 K/CU MM 150-450 MEAN PLATELET VOLUME (BEAKER) (test nkdn=911) 11.0 fL 9.4-12.3 NUCLEATED RED BLOOD CELLS (BEAKER) (test fxox=509) 0 /100 WBC 0-0 POCT-GLUCOSE [id number] 00:01:00* Test Item Value Reference Range Comments POC-GLUCOSE METER (BEAKER) (test gpnm=6516) 147 mg/dL 70-110 TESTED AT [address] [address] POCT-GLUCOSE [id number] 18:40:00* Test Item Value Reference Range Comments POC-GLUCOSE METER (BEAKER) (test mppz=9933) 192 mg/dL 70-110 TESTED AT [address] [address] [id number] 16:25:00* Test Item Value Reference Range Comments FIBRINOGEN LEVEL ([facility]) (test bivk=448) 490 mg/dl 225-434 [id number] 16:25:00* Test Item Value Reference Range Comments PARTIAL THROMBOPLASTIN TIME (BEAKER) (test pfaw=953) 32.3 seconds 22.5-36.0 HEMOGLOBIN AND [id number] 16:11:00* Test Item Value Reference Range Comments HEMOGLOBIN (BEAKER) (test bibd=168) 8.7 GM/DL 11.2-15.7 HEMATOCRIT (BEAKER) (test hqfo=905) 28.0 % 34.1-44.9 Post transfusionPOCT-GLUCOSE [id number] 12:39:00* Test Item Value Reference Range Comments POC-GLUCOSE METER (AKER) (test vzog=3683) 124 mg/dL 70-110 TESTED AT [place] [id number] [facility] [id number] [place] [id number] 09:33:00* Test Item Value Reference Range Comments CULTURE ([facility]) (test bbfe=6062) No Legionella species isolated RAD, CHEST, 1 VIEW, NON [id number] 09:14:00Reason for exam:->respiratory failureShould this be performed at the bedside?->YesIs the patient ?-> UnknownFINAL REPORT HISTORY : respiratory failure. Comparison: 02/17/2018 Comment: Single portable view of the chest was obtained. The cardiac silhouette size is enlarged. There has been interval placement of a tracheostomy tube. The remainder of the support lines and tubes are otherwise unchanged. No pneumothorax is seen. There is some diffuse parenchymal airspace disease in the left lung with some more focal airspace disease in the right lung base. No pneumothorax is visualized. There is a suspected small left-sided pleural effusion. Signed: Portia Mello Verified Date/Time: 02/18/2018 09:14:00 Reading Location: [facility] C013 Transitional Reading Room C METABOLIC [id number] 06:07:00* Test Item Value Reference Range Comments SODIUM (BEAKER) (test rase=074) 148 meq/L 136-145 POTASSIUM (BEAKER) (test jffw=268) 4.4 meq/L 3.5-5.1 CHLORIDE (BEAKER) (test nzif=741) 115 meq/L 98-107 CO2 (BEAKER) (test vbel=752) 22 meq/L 22-29 BLOOD UREA NITROGEN (BEAKER) (test zjxn=205) 68 mg/dL 7-21 CREATININE (BEAKER) (test sior=816) 1.81 mg/dL 0.57-1.25 GLUCOSE RANDOM (BEAKER) (test jegd=565) 136 mg/dL 70-105 CALCIUM (BEAKER) (test eefr=859) 8.0 mg/dL 8.4-10.2 EGFR (BEAKER) (test kkka=7340) 29 mL/min/1.73 sq m ESTIMATED GFR IS NOT ACCURATE CREATININE CLEARANCE IN PREDICTING GLOMERULAR FILTRATION RATE. ESTIMATED GFR IS NOT APPLICABLE FOR DIALYSIS PATIENTS. CBC (HEMOGRAM ONLY)2018-02-18 06:00:00* Test Item Value Reference Range Comments WHITE BLOOD CELL COUNT (BEAKER) (test bvvt=484) 13.5 K/ L 3.5-10.5 RED BLOOD CELL COUNT (BEAKER) (test ewyx=213) 2.31 M/ L 3.93-5.22 HEMOGLOBIN (BEAKER) (test orhc=638) 7.0 GM/DL 11.2-15.7 HEMATOCRIT (BEAKER) (test mbfu=958) 23.4 % 34.1-44.9 MEAN CORPUSCULAR VOLUME (BEAKER) (test uptm=626) 101.3 fL 79.4-94.8 MEAN CORPUSCULAR HEMOGLOBIN (BEAKER) (test iuqy=597) 30.3 pg 25.6-32.2 MEAN CORPUSCULAR HEMOGLOBIN CONC (BEAKER) (test gdxk=469) 29.9 GM/DL 32.2-35.5 RED CELL DISTRIBUTION WIDTH (BEAKER) (test lldy=172) 20.3 % 11.7-14.4 PLATELET COUNT (BEAKER) (test fodh=498) 242 K/CU MM 150-450 MEAN PLATELET VOLUME (BEAKER) (test nuli=179) 11.0 fL 9.4-12.3 NUCLEATED RED BLOOD CELLS (BEAKER) (test trjn=290) 0 /100 WBC 0-0 LACTIC ACID, ARTERIAL, WHOLE [id number] 05:58:00* Test Item Value Reference Range Comments LACTATE BLOOD ARTERIAL (2) (BEAKER) (test qzxp=6422) 1.1 mmol/L 0.5-2.2 Specimen slightly hemolyzed Effective 03/10/2016: Units/Reference Range ChangeNew: 0.5-2.2 mmol/L Previous: 5 -20 mg/dLSpecimen slightly [id number] 05:51:00* Test Item Value Reference Range Comments PHOSPHORUS (BEAKER) (test lqmq=083) 3.1 mg/dL 2.3-4.7 [id number] 05:51:00* Test Item Value Reference Range Comments MAGNESIUM (BEAKER) (test gzwn=621) 2.8 mg/dL 1.6-2.6 HEPATIC FUNCTION [id number] 05:51:00* Test Item Value Reference Range Comments TOTAL PROTEIN (BEAKER) (test cglb=867) 5.4 gm/dL 6.0-8.3 ALBUMIN (BEAKER) (test teva=0819) 3.0 g/dL 3.5-5.0 BILIRUBIN TOTAL (BEAKER) (test cgad=076) 2.5 mg/dL 0.2-1.2 BILIRUBIN DIRECT (BEAKER) (test feqf=059) 1.6 mg/dL 0.1-0.5 ALKALINE PHOSPHATASE (BEAKER) (test cznk=596) 105 U/L 40-150 AST (SGOT) (BEAKER) (test ulml=688) 47 U/L 5-34 ALT (SGPT) (BEAKER) (test gygb=633) 46 U/L 6-55 CALCIUM, [id number] 05:45:00* Test Item Value Reference Range Comments CALCIUM IONIZED (BEAKER) (test icpc=942) 1.08 mmol/L 1.12-1.27 PH, BLOOD (BEAKER) (test vvxs=8385) 7.38 OXYGEN SATURATION, [id number] 05:42:00* Test Item Value Reference Range Comments O2 SATURATION (MEASURED) (BEAKER) (test cnpn=9030) 65.2 % BLOOD GAS, [id number] 05:26:00* Test Item Value Reference Range Comments PH ARTERIAL (BEAKER) (test jrmy=502) 7.40 7.35-7.45 PCO2 ARTERIAL (BEAKER) (test docq=020) 38 mmHg 35-45 PO2 ARTERIAL (BEAKER) (test tdyh=004) 83 mmHg 80-90 O2 SATURATION ARTERIAL (BEAKER) (test oyjd=487) 95.9 % 96.0-97.0 HCO3 ARTERIAL (BEAKER) (test bppo=511) 23 mmol/L 21-29 BASE EXCESS ARTERIAL (BEAKER) (test kxdz=933) -1.8 mmol/L -2.0-3.0 PATIENT TEMPERATURE (BEAKER) (test mxsa=6452) 37.7 C FIO2 (BEAKER) (test mczg=4039) 60.0 % PROTHROMBIN [id number] 05:07:00* Test Item Value Reference Range Comments PROTIME (BEAKER) (test hitl=573) 17.2 seconds 11.7-14.7 INR (BEAKER) (test tbhu=214) 1.4 <=5.9 RECOMMENDED COUMADIN/WARFARIN INR THERAPY RANGESSTANDARD DOSE: 2.0 - 3.0 Inclu connie: PROPHYLAXIS for venous thrombosis, systemic embolization; TREATMENT for lupis ous thrombosis and/or pulmonary embolus.HIGH RISK: Target INR is 2.5-3.5 for pat ients with mechanical heart valves.[id number] 05:07:00* Test Item Value Reference Range Comments FIBRINOGEN LEVEL (BEAKER) (test snkv=587) 438 mg/dl 225-434 [id number] 05:07:00* Test Item Value Reference Range Comments PARTIAL THROMBOPLASTIN TIME (BEAKER) (test bxac=786) 27.3 seconds 22.5-36.0 POCT-GLUCOSE [id number] 00:32:00* Test Item Value Reference Range Comments POC-GLUCOSE METER (BEAKER) (test ivoj=2305) 144 mg/dL 70-110 TESTED AT [facility] [address] [place] [address] BLOOD GAS, [id number] 22:47:00* Test Item Value Reference Range Comments PH ARTERIAL (BEAKER) (test exzn=638) 7.47 7.35-7.45 PCO2 ARTERIAL (BEAKER) (test hzgu=150) 34 mmHg 35-45 PO2 ARTERIAL (BEAKER) (test mjue=267) 87 mmHg 80-90 O2 SATURATION ARTERIAL (BEAKER) (test ewbh=276) 96.8 % 96.0-97.0 HCO3 ARTERIAL (BEAKER) (test nugx=372) 24 mmol/L 21-29 BASE EXCESS ARTERIAL (BEAKER) (test cqls=989) 0.3 mmol/L -2.0-3.0 PATIENT TEMPERATURE (BEAKER) (test icka=2470) 38.0 C FIO2 (BEAKER) (test agca=3395) 60.0 % POCT-GLUCOSE [id number] 17:42:00* Test Item Value Reference Range Comments POC-GLUCOSE METER (BEAKER) (test wrvz=5123) 158 mg/dL 70-110 [address]ED AT [address] [address] BLOOD GAS, [id number] 16:42:00* Test Item Value Reference Range Comments PH ARTERIAL (BEAKER) (test vvxf=721) 7.47 7.35-7.45 PCO2 ARTERIAL (BEAKER) (test utbq=653) 36 mmHg 35-45 PO2 ARTERIAL (BEAKER) (test rwfe=257) 84 mmHg 80-90 O2 SATURATION ARTERIAL (BEAKER) (test pcbj=385) 96.9 % 96.0-97.0 HCO3 ARTERIAL (BEAKER) (test gako=917) 25 mmol/L 21-29 BASE EXCESS ARTERIAL (BEAKER) (test jnpr=596) 1.5 mmol/L -2.0-3.0 PATIENT TEMPERATURE (BEAKER) (test cnxg=7907) 37.0 C POCT-GLUCOSE [id number] 16:06:00* Test Item Value Reference Range Comments POC-GLUCOSE METER (BEAKER) (test kgps=2432) 166 mg/dL 70-110 TESTED AT [address] [address] SPUTUM CULTURE + GRAM [id number] 09:41:00* Test Item Value Reference Range Comments CULTURE (BEAKER) (test lkxv=2737) See comment GRAM STAIN RESULT (BEAKER) (test xegw=4839) 3+ White blood cells seen GRAM STAIN RESULT (BEAKER) (test tlls=344712) 0-5 epithelial cells GRAM STAIN RESULT (BEAKER) (test howl=752547) No organisms seen <1+ YeastNo Normal respiratory alan presentRAD, CHEST, 1 VIEW, NON DEPT 2018-02-17 09:10:00Reason for exam:->respiratory failureShould this be performed at the bedside?->YesIs the patient ?->UnknownFINAL REPORT Portable chest CLINICAL HISTORY: Respiratory failure Comparison study: February 16, 2018 FINDINGS: The cardiac silhouette is unremarkable. The patient's support lines and tubes are again noted with interval insertion of a nasogastric tube. There are extensive opacities in the left thorax, more pronounced than on previous with a small left-sided pleural effusion. The right lung is clear. No pneumothorax is noted. The regional skeleton is unremarkable. IMPRESSION: Interval insertion of nasogastric tube with worsening opacities in the left thorax. Signed: Emiliano Colby MDReport Verified Date/Time: 02/17/2018 09:10:02 Reading Location: [facility] Diagnostic Imaging Reading Room - [place] [address] D GAS, [id number] 08:48:00* Test Item Value Reference Range Comments PH ARTERIAL (BEAKER) (test icdu=461) 7.43 7.35-7.45 PCO2 ARTERIAL (BEAKER) (test ctpl=318) 41 mmHg 35-45 PO2 ARTERIAL (BEAKER) (test clzu=637) 60 mmHg 80-90 O2 SATURATION ARTERIAL (BEAKER) (test xqmj=585) 91.1 % 96.0-97.0 HCO3 ARTERIAL (BEAKER) (test szye=990) 27 mmol/L 21-29 BASE EXCESS ARTERIAL (BEAKER) (test jqbt=374) 2.3 mmol/L -2.0-3.0 PATIENT TEMPERATURE (BEAKER) (test ufoa=7939) 37.5 C FIO2 (BEAKER) (test qyrj=4325) 60.0 % OXYGEN SATURATION, [id number] 07:23:00* Test Item Value Reference Range Comments O2 SATURATION (MEASURED) (BEAKER) (test zrhr=4133) 66.6 % BASIC METABOLIC [id number] 06:18:00* Test Item Value Reference Range Comments SODIUM (BEAKER) (test icxy=681) 147 meq/L 136-145 POTASSIUM (BEAKER) (test roza=973) 4.2 meq/L 3.5-5.1 CHLORIDE (BEAKER) (test brfw=450) 111 meq/L 98-107 CO2 (BEAKER) (test dbby=412) 25 meq/L 22-29 BLOOD UREA NITROGEN (BEAKER) (test lwgx=734) 78 mg/dL 7-21 CREATININE (BEAKER) (test ypqe=548) 1.90 mg/dL 0.57-1.25 GLUCOSE RANDOM (BEAKER) (test rvtu=072) 139 mg/dL 70-105 CALCIUM (BEAKER) (test ecsg=876) 8.1 mg/dL 8.4-10.2 EGFR (BEAKER) (test pdnp=2275) 28 mL/min/1.73 sq m ESTIMATED GFR IS NOT ACCURATE CREATININE CLEARANCE IN PREDICTING GLOMERULAR FILTRATION RATE. ESTIMATED GFR IS NOT APPLICABLE FOR DIALYSIS PATIENTS. Specimen slightly ictericHEPATIC FUNCTION [id number] 06:18:00* Test Item Value Reference Range Comments TOTAL PROTEIN (BEAKER) (test kwzn=487) 6.0 gm/dL 6.0-8.3 ALBUMIN (BEAKER) (test pmun=6119) 3.3 g/dL 3.5-5.0 BILIRUBIN TOTAL (BEAKER) (test sepp=025) 2.9 mg/dL 0.2-1.2 BILIRUBIN DIRECT (BEAKER) (test dxoo=222) 1.9 mg/dL 0.1-0.5 ALKALINE PHOSPHATASE (BEAKER) (test ukvz=227) 128 U/L 40-150 AST (SGOT) (BEAKER) (test tecf=303) 72 U/L 5-34 ALT (SGPT) (BEAKER) (test jaiw=050) 56 U/L 6-55 Specimen slightly ictericCALCIUM, [id number] 06:17:00* Test Item Value Reference Range Comments CALCIUM IONIZED (BEAKER) (test psuy=309) 1.05 mmol/L 1.12-1.27 PH, BLOOD (BEAKER) (test icap=4281) 7.46 [id number] 06:17:00* Test Item Value Reference Range Comments PHOSPHORUS (BEAKER) (test fwxc=299) 2.7 mg/dL 2.3-4.7 [id number] 06:17:00* Test Item Value Reference Range Comments MAGNESIUM (BEAKER) (test sbqy=036) 2.9 mg/dL 1.6-2.6 CBC (HEMOGRAM ONLY)2018-02-17 06:13:00* Test Item Value Reference Range Comments WHITE BLOOD CELL COUNT (BEAKER) (test bthk=519) 15.9 K/ L 3.5-10.5 RED BLOOD CELL COUNT (BEAKER) (test lmzr=863) 2.57 M/ L 3.93-5.22 HEMOGLOBIN (BEAKER) (test gxwb=030) 7.7 GM/DL 11.2-15.7 HEMATOCRIT (BEAKER) (test qjbm=423) 25.6 % 34.1-44.9 MEAN CORPUSCULAR VOLUME (BEAKER) (test kfdc=342) 99.6 fL 79.4-94.8 MEAN CORPUSCULAR HEMOGLOBIN (BEAKER) (test wrzc=025) 30.0 pg 25.6-32.2 MEAN CORPUSCULAR HEMOGLOBIN CONC (BEAKER) (test kqkv=927) 30.1 GM/DL 32.2-35.5 RED CELL DISTRIBUTION WIDTH (BEAKER) (test kaze=594) 19.5 % 11.7-14.4 PLATELET COUNT (BEAKER) (test nvcx=365) 272 K/CU MM 150-450 MEAN PLATELET VOLUME (BEAKER) (test kdnv=414) 10.3 fL 9.4-12.3 NUCLEATED RED BLOOD CELLS (BEAKER) (test krcd=400) 1 /100 WBC 0-0 BLOOD GAS, [id number] 06:08:00* Test Item Value Reference Range Comments PH ARTERIAL (BEAKER) (test kuom=679) 7.43 7.35-7.45 PCO2 ARTERIAL (BEAKER) (test codg=384) 44 mmHg 35-45 PO2 ARTERIAL (BEAKER) (test kixc=305) 85 mmHg 80-90 O2 SATURATION ARTERIAL (BEAKER) (test ljxn=675) 95.6 % 96.0-97.0 HCO3 ARTERIAL (BEAKER) (test gzdn=485) 28 mmol/L 21-29 BASE EXCESS ARTERIAL (BEAKER) (test zwne=868) 3.8 mmol/L -2.0-3.0 PATIENT TEMPERATURE (BEAKER) (test edmr=1382) 39.0 C FIO2 (BEAKER) (test fbxx=1716) 100.0 % LACTIC ACID, ARTERIAL, WHOLE [id number] 05:55:00* Test Item Value Reference Range Comments LACTATE BLOOD ARTERIAL (2) (BEAKER) (test aols=1326) 1.2 mmol/L 0.5-2.2 Effective 03/10/2016: Units/Reference Range ChangeNew: 0.5-2.2 mmol/L Previous: 5 -20 mg/dLSpecimen slightly [id number] 05:41:00* Test Item Value Reference Range Comments FIBRINOGEN LEVEL (BEAKER) (test qrxy=050) 440 mg/dl 225-434 [id number] 05:41:00* Test Item Value Reference Range Comments PARTIAL THROMBOPLASTIN TIME (BEAKER) (test eecq=564) 31.3 seconds 22.5-36.0 PROTHROMBIN [id number] 05:40:00* Test Item Value Reference Range Comments PROTIME (BEAKER) (test uxwe=122) 17.2 seconds 11.7-14.7 INR (BEAKER) (test jqxb=946) 1.4 <=5.9 RECOMMENDED COUMADIN/WARFARIN INR THERAPY RANGESSTANDARD DOSE: 2.0 - 3.0 Inclu connie: PROPHYLAXIS for venous thrombosis, systemic embolization; TREATMENT for lupis ous thrombosis and/or pulmonary embolus.HIGH RISK: Target INR is 2.5-3.5 for pat ients with mechanical heart valves.BLOOD GAS, [id number] 02:02:00* Test Item Value Reference Range Comments PH ARTERIAL (BEAKER) (test jpbp=268) 7.43 7.35-7.45 PCO2 ARTERIAL (BEAKER) (test lwnr=194) 42 mmHg 35-45 PO2 ARTERIAL (BEAKER) (test qbnx=511) 98 mmHg 80-90 O2 SATURATION ARTERIAL (BEAKER) (test tmsy=949) 96.9 % 96.0-97.0 HCO3 ARTERIAL (BEAKER) (test ozpm=765) 26 mmol/L 21-29 BASE EXCESS ARTERIAL (BEAKER) (test qkrc=486) 2.4 mmol/L -2.0-3.0 PATIENT TEMPERATURE (BEAKER) (test awpa=0607) 39.0 C FIO2 (BEAKER) (test ujrs=9637) 80.0 % POCT-GLUCOSE [id number] 23:59:00* Test Item Value Reference Range Comments POC-GLUCOSE METER (BEAKER) (test guvv=7778) 200 mg/dL 70-110 TESTED AT [facility] [address] [facility] [address] BLOOD GAS, [id number] 21:38:00* Test Item Value Reference Range Comments PH ARTERIAL (BEAKER) (test fgff=737) 7.44 7.35-7.45 PCO2 ARTERIAL (BEAKER) (test qkzx=039) 43 mmHg 35-45 PO2 ARTERIAL (BEAKER) (test sksz=871) 61 mmHg 80-90 O2 SATURATION ARTERIAL (BEAKER) (test wxnj=715) 89.4 % 96.0-97.0 HCO3 ARTERIAL (BEAKER) (test cnmb=817) 28 mmol/L 21-29 BASE EXCESS ARTERIAL (BEAKER) (test rsdj=301) 4.2 mmol/L -2.0-3.0 PATIENT TEMPERATURE (BEAKER) (test yhdo=8680) 39.0 C FIO2 (BEAKER) (test szbf=0667) 80.0 % BLOOD GAS, [id number] 18:46:00* Test Item Value Reference Range Comments PH ARTERIAL (BEAKER) (test qdpc=410) 7.44 7.35-7.45 PCO2 ARTERIAL (BEAKER) (test lzrq=371) 44 mmHg 35-45 PO2 ARTERIAL (BEAKER) (test ipzw=347) 72 mmHg 80-90 O2 SATURATION ARTERIAL (BEAKER) (test vapx=996) 93.7 % 96.0-97.0 HCO3 ARTERIAL (BEAKER) (test bfvm=966) 29 mmol/L 21-29 BASE EXCESS ARTERIAL (BEAKER) (test wnlu=547) 4.3 mmol/L -2.0-3.0 PATIENT TEMPERATURE (BEAKER) (test nsqc=3303) 38.5 C FIO2 (BEAKER) (test lmzp=3654) 60.0 % [id number] 16:00:00* Test Item Value Reference Range Comments PARTIAL THROMBOPLASTIN TIME (BEAKER) (test zzqt=715) 32.0 seconds 22.5-36.0 [id number] 15:59:00* Test Item Value Reference Range Comments FIBRINOGEN LEVEL (BEAKER) (test uaph=361) 445 mg/dl 225-434 BLOOD GAS, [id number] 15:39:00* Test Item Value Reference Range Comments PH ARTERIAL (BEAKER) (test ygdl=351) 7.46 7.35-7.45 PCO2 ARTERIAL (BEAKER) (test acrn=571) 41 mmHg 35-45 PO2 ARTERIAL (BEAKER) (test ivzh=647) 95 mmHg 80-90 O2 SATURATION ARTERIAL (BEAKER) (test lzee=654) 97.3 % 96.0-97.0 HCO3 ARTERIAL (BEAKER) (test wuqh=614) 28 mmol/L 21-29 BASE EXCESS ARTERIAL (BEAKER) (test uumg=038) 4.5 mmol/L -2.0-3.0 PATIENT TEMPERATURE (BEAKER) (test djrv=4888) 38.0 C FIO2 (BEAKER) (test odfu=2387) 80.0 % BLOOD GAS, [id number] 13:22:00* Test Item Value Reference Range Comments PH ARTERIAL (BEAKER) (test pvpn=065) 7.44 7.35-7.45 PCO2 ARTERIAL (BEAKER) (test bxfl=238) 31 mmHg 35-45 PO2 ARTERIAL (BEAKER) (test iyfh=569) 100 mmHg 80-90 O2 SATURATION ARTERIAL (BEAKER) (test fhqu=114) 97.8 % 96.0-97.0 HCO3 ARTERIAL (BEAKER) (test ybwv=563) 20 mmol/L 21-29 BASE EXCESS ARTERIAL (BEAKER) (test jlme=304) -3.2 mmol/L -2.0-3.0 PATIENT TEMPERATURE (BEAKER) (test uizz=4448) 37.1 C FIO2 (BEAKER) (test rdsq=2087) 100.0 % RAD, CHEST, 1 VIEW, NON [id number] 13:16:00Reason for exam:->hypoxiaShould this be performed at the bedside?->YesFINAL REPORT INDICATION: hypoxia COMPARISON: February 16, 2018 at 3:02 AMCTA exam January 23, 2018 TECHNIQUE: Chest radiograph, single view, portable technique. FINDINGS / IMPRESSION: Support lines and tubes are unchanged in appearance as fact reposition. Diffuse left lung and right lung base reticular opacities are unchanged, may represent reexpansion edema and subsegmental atelectasis respectively, after thoracic aortic dissection repair. Cardiac and mediastinal contours are unchanged. Small left pleural effusion is unchanged. No pneu mothorax. Signed: Larry Davis MDReport Verified Date/Time: 02/16/2018 13:1 6:24 Reading Location: [facility] Reading Room C METABOLIC [id number] 04:17:00* Test Item Value Reference Range Comments SODIUM (BEAKER) (test ljok=703) 145 meq/L 136-145 POTASSIUM (BEAKER) (test wbky=062) 3.9 meq/L 3.5-5.1 CHLORIDE (BEAKER) (test dmvo=600) 103 meq/L 98-107 CO2 (BEAKER) (test nvwu=735) 28 meq/L 22-29 BLOOD UREA NITROGEN (BEAKER) (test mxav=898) 71 mg/dL 7-21 CREATININE (BEAKER) (test zife=140) 1.82 mg/dL 0.57-1.25 GLUCOSE RANDOM (BEAKER) (test cpza=678) 145 mg/dL 70-105 CALCIUM (BEAKER) (test cvse=877) 8.2 mg/dL 8.4-10.2 EGFR (BEAKER) (test xqwc=9185) 29 mL/min/1.73 sq m ESTIMATED GFR IS NOT ACCURATE CREATININE CLEARANCE IN PREDICTING GLOMERULAR FILTRATION RATE. ESTIMATED GFR IS NOT APPLICABLE FOR DIALYSIS PATIENTS. Specimen slightly [id number] 04:06:00* Test Item Value Reference Range Comments PHOSPHORUS (BEAKER) (test kllu=430) 2.9 mg/dL 2.3-4.7 [id number] 04:06:00* Test Item Value Reference Range Comments MAGNESIUM (BEAKER) (test pacj=916) 2.6 mg/dL 1.6-2.6 HEPATIC FUNCTION [id number] 04:06:00* Test Item Value Reference Range Comments TOTAL PROTEIN (BEAKER) (test gykt=975) 6.1 gm/dL 6.0-8.3 ALBUMIN (BEAKER) (test yftw=0451) 3.4 g/dL 3.5-5.0 BILIRUBIN TOTAL (BEAKER) (test loyk=238) 3.5 mg/dL 0.2-1.2 BILIRUBIN DIRECT (BEAKER) (test ppld=104) 2.3 mg/dL 0.1-0.5 ALKALINE PHOSPHATASE (BEAKER) (test hche=268) 147 U/L 40-150 AST (SGOT) (BEAKER) (test etdr=216) 82 U/L 5-34 ALT (SGPT) (BEAKER) (test oaag=807) 52 U/L 6-55 Specimen slightly ictericLACTATE DEHYDROGENASE (LDH)2018-02-16 04:06:00* Test Item Value Reference Range Comments LACTATE DEHYDROGENASE (BEAKER) (test gopt=446) 900 U/L 125-220 RAD, CHEST, 1 VIEW, NON [id number] 03:47:00Reason for exam:-> ECMO/intubatedShould this be performed at the bedside?->YesIs the patient ?->UnknownFINAL REPORT EXAMINATION: AP PORTABLE CHEST RADIOGRAPH CLINICAL INDICATION: Intubated, ECMO IMPRESSION: Compared with February 15, 2018 Support tube and catheter positions are unchanged. Relatively stable opacities are again noted in both lungs, left greater than right. The superimposed pleural effusions are also stable. No definite evidence of new lung consolidation or pneumothorax. The cardiac and mediastinal contours are also unchanged. In summary, no significant interval change. Signed: Richard Valdezeport Verified Date/Time: 02/16/2018 03:47:40 Reading Location: [address] Reading Room IC ACID, ARTERIAL, WHOLE [id number] 03:38:00* Test Item Value Reference Range Comments LACTATE BLOOD ARTERIAL (2) (BEAKER) (test nnaa=4469) 1.4 mmol/L 0.5-2.2 Effective 03/10/2016: Units/Reference Range ChangeNew: 0.5-2.2 mmol/L Previous: 5 -20 mg/dLSpecimen slightly ictericCALCIUM, [id number] 03:27:00* Test Item Value Reference Range Comments CALCIUM IONIZED (BEAKER) (test rbtk=265) 1.01 mmol/L 1.12-1.27 PH, BLOOD (BEAKER) (test pnho=4916) 7.42 BLOOD GAS, [id number] 03:25:00* Test Item Value Reference Range Comments PH ARTERIAL (BEAKER) (test jajy=000) 7.43 7.35-7.45 PCO2 ARTERIAL (BEAKER) (test ulzd=908) 47 mmHg 35-45 PO2 ARTERIAL (BEAKER) (test vagf=642) 63 mmHg 80-90 O2 SATURATION ARTERIAL (BEAKER) (test jxcj=743) 91.8 % 96.0-97.0 HCO3 ARTERIAL (BEAKER) (test yldz=036) 30 mmol/L 21-29 BASE EXCESS ARTERIAL (BEAKER) (test hwlf=312) 5.3 mmol/L -2.0-3.0 PATIENT TEMPERATURE (BEAKER) (test omfj=6710) 37.6 C FIO2 (BEAKER) (test make=3830) 70.0 % [id number] 03:22:00* Test Item Value Reference Range Comments FIBRINOGEN LEVEL (BEAKER) (test hyqj=634) 452 mg/dl 225-434 PROTHROMBIN [id number] 03:21:00* Test Item Value Reference Range Comments PROTIME (BEAKER) (test cfqf=824) 17.4 seconds 11.7-14.7 INR (BEAKER) (test ohfb=452) 1.4 <=5.9 RECOMMENDED COUMADIN/WARFARIN INR THERAPY RANGESSTANDARD DOSE: 2.0 - 3.0 Inclu connie: PROPHYLAXIS for venous thrombosis, systemic embolization; TREATMENT for lupis ous thrombosis and/or pulmonary embolus.HIGH RISK: Target INR is 2.5-3.5 for pat ients with mechanical heart valves.[id number] 03:21:00* Test Item Value Reference Range Comments PARTIAL THROMBOPLASTIN TIME (BEAKER) (test esyw=562) 35.3 seconds 22.5-36.0 CBC (HEMOGRAM ONLY)2018-02-16 03:10:00* Test Item Value Reference Range Comments WHITE BLOOD CELL COUNT (BEAKER) (test veix=751) 18.4 K/ L 3.5-10.5 RED BLOOD CELL COUNT (BEAKER) (test hfoi=274) 2.88 M/ L 3.93-5.22 HEMOGLOBIN (BEAKER) (test amwk=348) 8.6 GM/DL 11.2-15.7 HEMATOCRIT (BEAKER) (test dika=961) 27.7 % 34.1-44.9 MEAN CORPUSCULAR VOLUME (BEAKER) (test yfex=656) 96.2 fL 79.4-94.8 MEAN CORPUSCULAR HEMOGLOBIN (BEAKER) (test hfhu=714) 29.9 pg 25.6-32.2 MEAN CORPUSCULAR HEMOGLOBIN CONC (BEAKER) (test zbck=346) 31.0 GM/DL 32.2-35.5 RED CELL DISTRIBUTION WIDTH (BEAKER) (test mvyc=482) 19.5 % 11.7-14.4 PLATELET COUNT (BEAKER) (test whsg=200) 288 K/CU MM 150-450 MEAN PLATELET VOLUME (BEAKER) (test fkjx=342) 10.1 fL 9.4-12.3 NUCLEATED RED BLOOD CELLS (BEAKER) (test jmzo=700) 3 /100 WBC 0-0 BLOOD [id number] 00:00:00* Test Item Value Reference Range Comments CULTURE (BEAKER) (test ruex=8471) No growth in 5 days BLOOD GAS, [id number] 23:26:00* Test Item Value Reference Range Comments PH ARTERIAL (BEAKER) (test amqk=097) 7.47 7.35-7.45 PCO2 ARTERIAL (BEAKER) (test tvad=105) 44 mmHg 35-45 PO2 ARTERIAL (BEAKER) (test pznd=545) 80 mmHg 80-90 O2 SATURATION ARTERIAL (BEAKER) (test utbv=114) 95.8 % 96.0-97.0 HCO3 ARTERIAL (BEAKER) (test kpoe=737) 31 mmol/L 21-29 BASE EXCESS ARTERIAL (BEAKER) (test kyxy=585) 6.8 mmol/L -2.0-3.0 PATIENT TEMPERATURE (BEAKER) (test eiug=5791) 38.0 C FIO2 (BEAKER) (test gvso=9159) 70.0 % POCT-GLUCOSE [id number] 19:23:00* Test Item Value Reference Range Comments POC-GLUCOSE METER (BEAKER) (test iulc=7696) 176 mg/dL 70-110 TESTED AT [facility] [address] [facility] [id number] 17:44:00* Test Item Value Reference Range Comments FIBRINOGEN LEVEL (BEAKER) (test nqtt=167) 458 mg/dl 225-434 [id number] 17:44:00* Test Item Value Reference Range Comments PARTIAL THROMBOPLASTIN TIME (BEAKER) (test wvyx=295) 31.6 seconds 22.5-36.0 SPUTUM CULTURE + GRAM [id number] 15:53:00* Test Item Value Reference Range Comments CULTURE (BEAKER) (test fnxh=7013) 1+ Normal respiratory alan present <1+ Capnocytophaga speciesThis is an appended report. These organism results have been appended to a previously final verified report. GRAM STAIN RESULT (BEAKER) (test sppr=2892) 2+ WBCs GRAM STAIN RESULT (BEAKER) (test djpv=054810) 0-5 epithelial cells GRAM STAIN RESULT (BEAKER) (test tmyv=756355) No organisms seen GRAM STAIN RESULT (BEAKER) (test eash=678067) 0-5 epithelial cells GRAM STAIN RESULT (BEAKER) (test dqyv=853809) No organisms seen 1+ Normal respiratory alan presentC W/PLT COUNT & AUTO [id number] 14:30:00* Test Item Value Reference Range Comments WHITE BLOOD CELL COUNT (BEAKER) (test pjee=121) 16.6 K/ L 3.5-10.5 RED BLOOD CELL COUNT (BEAKER) (test sgyw=793) 2.78 M/ L 3.93-5.22 HEMOGLOBIN (BEAKER) (test sfjt=362) 8.3 GM/DL 11.2-15.7 HEMATOCRIT (BEAKER) (test mrmn=074) 26.2 % 34.1-44.9 MEAN CORPUSCULAR VOLUME (BEAKER) (test wijq=640) 94.2 fL 79.4-94.8 MEAN CORPUSCULAR HEMOGLOBIN (BEAKER) (test elgg=806) 29.9 pg 25.6-32.2 MEAN CORPUSCULAR HEMOGLOBIN CONC (BEAKER) (test pmxi=480) 31.7 GM/DL 32.2-35.5 RED CELL DISTRIBUTION WIDTH (BEAKER) (test vijz=934) 19.4 % 11.7-14.4 PLATELET COUNT (BEAKER) (test ppsg=582) 296 K/CU MM 150-450 MEAN PLATELET VOLUME (BEAKER) (test gciz=497) 10.2 fL 9.4-12.3 NUCLEATED RED BLOOD CELLS (BEAKER) (test eatc=568) 9 /100 WBC 0-0 IMMATURE GRANULOCYTES-RELATIVE PERCENT (BEAKER) (test rxti=5321) 6 % 0-1 (MANUAL DIFFERENTIAL)2018-02-15 14:30:00* Test Item Value Reference Range Comments NEUTROPHILS - REL (DIFF) (BEAKER) (test vqdv=0181) 81 % LYMPHOCYTES - REL (DIFF) (BEAKER) (test hlzv=4528) 13 % MONOCYTES - REL (DIFF) (BEAKER) (test cjin=2547) 2 % EOSINOPHILS - REL (DIFF) (BEAKER) (test uypo=0097) 1 % METAMYELOCYTES-REL (DIFF) (BEAKER) (test wuih=562) 1 % 0-0 MYELOCYTES-REL (DIFF) (BEAKER) (test howq=0937) 2 % 0-0 NEUTROPHILS - ABS (DIFF) (BEAKER) (test ywzs=1978) 13.45 K/ L 1.80-8.00 LYMPHOCYTES - ABS (DIFF) (BEAKER) (test dnyj=3918) 2.16 K/ L 1.48-4.50 MONOCYTES - ABS (DIFF) (BEAKER) (test kjlb=4438) 0.33 K/ L 0.00-1.30 EOSINOPHILS - ABS (DIFF) (BEAKER) (test kbvd=2069) 0.17 K/ L 0.00-0.50 METAMYELOCTYES - ABS (DIFF) (BEAKER) (test bfup=470) 0.17 K/ L 0.00-0.00 MYELOCYTES-ABS (DIFF) (BEAKER) (test xfym=2747) 0.33 K/ L 0.00-0.00 TOTAL COUNTED (BEAKER) (test jxoc=2349) 100 MANUAL NRBC PER 100 CELLS (BEAKER) (test spon=4758) 7 /100 WBC 0-0 WBC MORPHOLOGY (BEAKER) (test ijij=024) Normal PLT MORPHOLOGY (BEAKER) (test hmsq=954) Normal POLYCHROMATOPHILLIC RBCS(BEAKER) (test fksn=801) 1+ few RAD, CHEST, 1 VIEW, NON [id number] 14:20:00Reason for exam:->hypoxemiaShould this be performed at the bedside?->YesFINAL REPORT Chest one view INDICATION: Hypoxemia COMPARISON: 02/15/2018 IMPRESSION: ET tube terminates 5.2 cm above the maddie. Feeding tube extends below the diaphragm with tip off image. Left jugular line extends to the SVC. NG tube has been removed. Median sternotomy changes are noted. The cardiomediastinal contours are stable. Left-sided pleural thickening and effusion and extensive left lung airspace opacities are stable. Right basilar airspace disease is stable to slightly improved. There is gaseous gastric distention. No pneumothorax is seen. Signed: Virgilio Kerns MDReport Verified Date/Time: 02/15/2018 14:20:41 Reading Location: [address] Consult Reading Room C METABOLIC [id number] 12:44:00* Test Item Value Reference Range Comments SODIUM (BEAKER) (test zfzl=703) 144 meq/L 136-145 POTASSIUM (BEAKER) (test wkdx=748) 4.1 meq/L 3.5-5.1 CHLORIDE (BEAKER) (test hkbn=406) 103 meq/L 98-107 CO2 (BEAKER) (test oedp=174) 31 meq/L 22-29 BLOOD UREA NITROGEN (BEAKER) (test gqvf=177) 64 mg/dL 7-21 CREATININE (BEAKER) (test dqre=759) 1.72 mg/dL 0.57-1.25 GLUCOSE RANDOM (BEAKER) (test oqkn=250) 188 mg/dL 70-105 CALCIUM (BEAKER) (test yhru=858) 8.2 mg/dL 8.4-10.2 EGFR (BEAKER) (test asnl=4685) 31 mL/min/1.73 sq m ESTIMATED GFR IS NOT ACCURATE CREATININE CLEARANCE IN PREDICTING GLOMERULAR FILTRATION RATE. ESTIMATED GFR IS NOT APPLICABLE FOR DIALYSIS PATIENTS. Specimen slightly ictericVANCOMYCIN LEVEL, [id number] 12:43:00* Test Item Value Reference Range Comments VANCOMYCIN RANDOM (BEAKER) (test epll=145) 25.8 ug/mL Reference Range: No NormalsLACTIC ACID, ARTERIAL, WHOLE [id number] 12:41:00 * Test Item Value Reference Range Comments LACTATE BLOOD ARTERIAL (2) (BEAKER) (test gfnc=6018) 1.5 mmol/L 0.5-2.2 Effective 03/10/2016: Units/Reference Range ChangeNew: 0.5-2.2 mmol/L Previous: 5 -20 mg/dLSpecimen slightly ictericBLOOD GAS, [id number] 12:34:00* Test Item Value Reference Range Comments PH ARTERIAL (BEAKER) (test kisj=288) 7.50 7.35-7.45 PCO2 ARTERIAL (BEAKER) (test bqey=768) 42 mmHg 35-45 PO2 ARTERIAL (BEAKER) (test fbih=270) 60 mmHg 80-90 O2 SATURATION ARTERIAL (BEAKER) (test mkve=839) 89.8 % 96.0-97.0 HCO3 ARTERIAL (BEAKER) (test nwsi=428) 32 mmol/L 21-29 BASE EXCESS ARTERIAL (BEAKER) (test igxh=683) 8.3 mmol/L -2.0-3.0 PATIENT TEMPERATURE (BEAKER) (test copu=5858) 39.4 C FIO2 (BEAKER) (test hwex=8660) 60.0 % HEPARIN ASSAY - [id number] 12:21:00* Test Item Value Reference Range Comments UNFRACTIONATED HEPARIN-ANTI 10A (BEAKER) (test gzxl=5853) < u/ml 0.30-0.70 Recommendations for Monitoring Unfractionated Heparin Therapeutic Range: 0.3-0. 7 u/mL with continuous IV infusionBLOOD GAS, [id number] 10:10:00* Test Item Value Reference Range Comments PH ARTERIAL (BEAKER) (test wrjk=883) 7.45 7.35-7.45 PCO2 ARTERIAL (BEAKER) (test uaib=750) 47 mmHg 35-45 PO2 ARTERIAL (BEAKER) (test iizi=616) 93 mmHg 80-90 O2 SATURATION ARTERIAL (BEAKER) (test ntxd=955) 96.5 % 96.0-97.0 HCO3 ARTERIAL (BEAKER) (test zkyk=577) 31 mmol/L 21-29 BASE EXCESS ARTERIAL (BEAKER) (test dwqy=519) 7.2 mmol/L -2.0-3.0 PATIENT TEMPERATURE (BEAKER) (test rerk=5349) 39.3 C FIO2 (BEAKER) (test vxwy=5925) 65.0 % THROMBOELASTOGRAPH (TEG)2018-02-15 09:43:00* Test Item Value Reference Range Comments TEG ACTIVATED CLOTTING TIME (BEAKER) (test zpcl=5981) 4.2 minutes 4.0-7.0 TEG FIBRINOGEN ACTIVITY (BEAKER) (test zecm=5850) 75.9 degrees 61.0-73.0 TEG PLT. AGGREGATION (BEAKER) (test facp=7269) 76.1 MM 55.0-65.0 TEG FIBRINOLYSIS (BEAKER) (test aosl=1326) 20.6 % 0.0-5.0 TGH ACTIVATED CLOTTING TIME (BEAKER) (test yjpf=4674) 4.2 minutes 4.0-7.0 TGH FIBRINOGEN ACTIVITY (BEAKER) (test kadk=6481) 75.4 degrees 61.0-73.0 TGH PLT. AGGREGATION (BEAKER) (test pkly=2594) 71.8 MM 55.0-65.0 TGH FIBRINOLYSIS (BEAKER) (test jsiv=1476) 1.4 % 0.0-5.0 URINE [id number] 07:35:00* Test Item Value Reference Range Comments CULTURE (BEAKER) (test mnem=4994) No growth GRAM STAIN RESULT (BEAKER) (test cynl=8558) 1+ WBCs GRAM STAIN RESULT (BEAKER) (test gjlc=99176) No organisms seen POCT-GLUCOSE [id number] 07:22:00* Test Item Value Reference Range Comments POC-GLUCOSE METER (BEAKER) (test slac=7132) 166 mg/dL 70-110 TESTED AT [facility] [address] [facility] [address] BLOOD GAS, [id number] 06:44:00* Test Item Value Reference Range Comments PH ARTERIAL (BEAKER) (test ryzd=973) 7.51 7.35-7.45 PCO2 ARTERIAL (BEAKER) (test ihnc=893) 42 mmHg 35-45 PO2 ARTERIAL (BEAKER) (test vnna=907) 88 mmHg 80-90 O2 SATURATION ARTERIAL (BEAKER) (test tlyu=382) 97.1 % 96.0-97.0 HCO3 ARTERIAL (BEAKER) (test cgbv=185) 32 mmol/L 21-29 BASE EXCESS ARTERIAL (BEAKER) (test jzxv=807) 8.7 mmol/L -2.0-3.0 PATIENT TEMPERATURE (BEAKER) (test nwya=4731) 37.7 C FIO2 (BEAKER) (test ovsg=9117) 75.0 % HEMOGLOBIN-STAT [id number] 06:44:00* Test Item Value Reference Range Comments HEMOGLOBIN (BEAKER) (test qasg=162) 9.8 g/dL 12.0-15.0 HEMATOCRIT-STAT [id number] 06:44:00* Test Item Value Reference Range Comments HEMATOCRIT (BEAKER) (test nbov=849) 29.0 % 36.0-45.0 BLOOD GAS, [id number] 05:48:00* Test Item Value Reference Range Comments PH ARTERIAL (BEAKER) (test rmtl=544) 7.48 7.35-7.45 PCO2 ARTERIAL (BEAKER) (test nwnc=629) 46 mmHg 35-45 PO2 ARTERIAL (BEAKER) (test gxta=254) 117 mmHg 80-90 O2 SATURATION ARTERIAL (BEAKER) (test ggss=670) 98.4 % 96.0-97.0 HCO3 ARTERIAL (BEAKER) (test pkzv=120) 33 mmol/L 21-29 BASE EXCESS ARTERIAL (BEAKER) (test xmeq=209) 8.5 mmol/L -2.0-3.0 PATIENT TEMPERATURE (BEAKER) (test udio=7296) 37.7 C FIO2 (BEAKER) (test vcbp=9130) 100.0 % RAD, CHEST, 1 VIEW, NON [id number] 05:04:00Reason for exam:-> ECMO/intubatedShould this be performed at the bedside?->YesIs the patient ?->UnknownFINAL REPORT RAD, CHEST, 1 VIEW, NON DEPT INDICATION: ECMO/intubated COMPARISON: Prior day's exam FINDINGS: Portable frontal view of the chest. IMPRESSION: Support Lines: Stable. Lungs and pleura: Asymmetric airspace disease, greater on the left is unchanged and unimproved from the prior date. No pneumothorax.Heart and mediastinum: Stable contours. Stable surgical changes.Additional findings: None. Signed: JR Lance, Anita Hernandez Verified Date/Time: 02/15/2018 05:04:42 Reading Location: [facility] B1 C013Y CT Body Reading Room IUM, [id number] 04:11:00* Test Item Value Reference Range Comments CALCIUM IONIZED (BEAKER) (test qyph=160) 1.02 mmol/L 1.12-1.27 PH, BLOOD (BEAKER) (test qgmx=7450) 7.53 [id number] 04:00:00* Test Item Value Reference Range Comments MAGNESIUM (BEAKER) (test wghk=727) 2.4 mg/dL 1.6-2.6 BASIC METABOLIC [id number] 04:00:00* Test Item Value Reference Range Comments SODIUM (BEAKER) (test gput=799) 146 meq/L 136-145 POTASSIUM (BEAKER) (test hdwn=199) 4.4 meq/L 3.5-5.1 CHLORIDE (BEAKER) (test vjln=332) 101 meq/L 98-107 CO2 (BEAKER) (test owic=780) 31 meq/L 22-29 BLOOD UREA NITROGEN (BEAKER) (test rbas=268) 62 mg/dL 7-21 CREATININE (BEAKER) (test kzcc=254) 1.48 mg/dL 0.57-1.25 GLUCOSE RANDOM (BEAKER) (test qmbj=879) 181 mg/dL 70-105 CALCIUM (BEAKER) (test yfkf=913) 8.8 mg/dL 8.4-10.2 EGFR (BEAKER) (test xelr=2428) 37 mL/min/1.73 sq m ESTIMATED GFR IS NOT ACCURATE CREATININE CLEARANCE IN PREDICTING GLOMERULAR FILTRATION RATE. ESTIMATED GFR IS NOT APPLICABLE FOR DIALYSIS PATIENTS. Specimen slightly ictericHEPATIC FUNCTION [id number] 04:00:00* Test Item Value Reference Range Comments TOTAL PROTEIN (BEAKER) (test yphx=927) 6.2 gm/dL 6.0-8.3 ALBUMIN (BEAKER) (test smln=0275) 3.5 g/dL 3.5-5.0 BILIRUBIN TOTAL (BEAKER) (test wbca=275) 4.1 mg/dL 0.2-1.2 BILIRUBIN DIRECT (BEAKER) (test jppt=753) 2.7 mg/dL 0.1-0.5 ALKALINE PHOSPHATASE (BEAKER) (test fmok=555) 170 U/L 40-150 AST (SGOT) (BEAKER) (test ihow=140) 76 U/L 5-34 ALT (SGPT) (BEAKER) (test uxut=259) 44 U/L 6-55 Specimen slightly ictericLACTATE DEHYDROGENASE (LDH)2018-02-15 04:00:00* Test Item Value Reference Range Comments LACTATE DEHYDROGENASE (BEAKER) (test nwcp=618) 826 U/L 125-220 BLOOD GAS, [id number] 04:00:00* Test Item Value Reference Range Comments PH ARTERIAL (BEAKER) (test acql=241) 7.53 7.35-7.45 PCO2 ARTERIAL (BEAKER) (test xsox=908) 40 mmHg 35-45 PO2 ARTERIAL (BEAKER) (test veai=857) 55 mmHg 80-90 O2 SATURATION ARTERIAL (BEAKER) (test lnbm=903) 91.5 % 96.0-97.0 HCO3 ARTERIAL (BEAKER) (test fyjb=208) 32 mmol/L 21-29 BASE EXCESS ARTERIAL (BEAKER) (test ildx=754) 8.6 mmol/L -2.0-3.0 PATIENT TEMPERATURE (BEAKER) (test aypq=9142) 37.0 C FIO2 (BEAKER) (test lyiw=3474) 100.0 % OXYGEN SATURATION, [id number] 03:59:00* Test Item Value Reference Range Comments O2 SATURATION (MEASURED) (BEAKER) (test mspj=9672) 55.8 % [id number] 03:56:00* Test Item Value Reference Range Comments FIBRINOGEN LEVEL (BEAKER) (test zhpj=319) 484 mg/dl 225-434 [id number] 03:56:00* Test Item Value Reference Range Comments PARTIAL THROMBOPLASTIN TIME (BEAKER) (test zrhc=265) 31.0 seconds 22.5-36.0 PROTHROMBIN TIME/[id number] 03:55:00* Test Item Value Reference Range Comments PROTIME (BEAKER) (test ttis=909) 16.2 seconds 11.7-14.7 INR (BEAKER) (test jlms=922) 1.3 <=5.9 RECOMMENDED COUMADIN/WARFARIN INR THERAPY RANGESSTANDARD DOSE: 2.0 - 3.0 Inclu connie: PROPHYLAXIS for venous thrombosis, systemic embolization; TREATMENT for lupis ous thrombosis and/or pulmonary embolus.HIGH RISK: Target INR is 2.5-3.5 for pat ients with mechanical heart valves.LACTIC ACID, ARTERIAL, WHOLE [id number] 03:52:00* Test Item Value Reference Range Comments LACTATE BLOOD ARTERIAL (2) (BEAKER) (test bsaz=4821) 1.5 mmol/L 0.5-2.2 Effective 03/10/2016: Units/Reference Range ChangeNew: 0.5-2.2 mmol/L Previous: 5 -20 mg/dLSpecimen slightly ictericCBC (HEMOGRAM ONLY)2018-02-15 03:49:00* Test Item Value Reference Range Comments WHITE BLOOD CELL COUNT (BEAKER) (test mvhr=281) 15.8 K/ L 3.5-10.5 RED BLOOD CELL COUNT (BEAKER) (test udhd=298) 2.43 M/ L 3.93-5.22 HEMOGLOBIN (BEAKER) (test fbqi=077) 7.3 GM/DL 11.2-15.7 HEMATOCRIT (BEAKER) (test hqfe=220) 23.5 % 34.1-44.9 MEAN CORPUSCULAR VOLUME (BEAKER) (test xhad=699) 96.7 fL 79.4-94.8 MEAN CORPUSCULAR HEMOGLOBIN (BEAKER) (test igyp=547) 30.0 pg 25.6-32.2 MEAN CORPUSCULAR HEMOGLOBIN CONC (BEAKER) (test uzbr=885) 31.1 GM/DL 32.2-35.5 RED CELL DISTRIBUTION WIDTH (BEAKER) (test xflh=285) 19.4 % 11.7-14.4 PLATELET COUNT (BEAKER) (test hooo=380) 286 K/CU MM 150-450 MEAN PLATELET VOLUME (BEAKER) (test hrnf=376) 10.2 fL 9.4-12.3 NUCLEATED RED BLOOD CELLS (BEAKER) (test chgl=610) 5 /100 WBC 0-0 GLUCOSE-STAT [id number] 01:57:00* Test Item Value Reference Range Comments GLUCOSE RANDOM (BEAKER) (test fksp=964) 135 mg/dL 70-110 BLOOD GAS, [id number] 01:57:00* Test Item Value Reference Range Comments PH ARTERIAL (BEAKER) (test isto=826) 7.56 7.35-7.45 PCO2 ARTERIAL (BEAKER) (test lymv=324) 39 mmHg 35-45 PO2 ARTERIAL (BEAKER) (test njwi=681) 62 mmHg 80-90 O2 SATURATION ARTERIAL (BEAKER) (test hygd=513) 94.8 % 96.0-97.0 HCO3 ARTERIAL (BEAKER) (test iwnr=584) 34 mmol/L 21-29 BASE EXCESS ARTERIAL (BEAKER) (test bjys=515) 10.7 mmol/L -2.0-3.0 PATIENT TEMPERATURE (BEAKER) (test dtaw=4845) 36.4 C FIO2 (BEAKER) (test zjfr=6133) 70.0 % BLOOD GAS, [id number] 23:46:00* Test Item Value Reference Range Comments PH ARTERIAL (BEAKER) (test gbfw=603) 7.56 7.35-7.45 PCO2 ARTERIAL (BEAKER) (test imwz=016) 38 mmHg 35-45 PO2 ARTERIAL (BEAKER) (test boqf=234) 91 mmHg 80-90 O2 SATURATION ARTERIAL (BEAKER) (test piob=709) 97.9 % 96.0-97.0 HCO3 ARTERIAL (BEAKER) (test gdlx=077) 34 mmol/L 21-29 BASE EXCESS ARTERIAL (BEAKER) (test ruuf=268) 10.8 mmol/L -2.0-3.0 PATIENT TEMPERATURE (BEAKER) (test tulo=8097) 36.6 C FIO2 (BEAKER) (test hfni=3445) 80.0 % THROMBOELASTOGRAPH (TEG)2018-02-14 22:57:00* Test Item Value Reference Range Comments TEG ACTIVATED CLOTTING TIME (BEAKER) (test mkuy=9541) 5.2 minutes 4.0-7.0 TEG FIBRINOGEN ACTIVITY (BEAKER) (test uydr=1560) 77.7 degrees 61.0-73.0 TEG PLT. AGGREGATION (BEAKER) (test zuea=1910) 77.3 MM 55.0-65.0 TEG FIBRINOLYSIS (BEAKER) (test qpcj=7813) 5.1 % 0.0-5.0 TGH ACTIVATED CLOTTING TIME (BEAKER) (test mosz=9766) 5.4 minutes 4.0-7.0 TGH FIBRINOGEN ACTIVITY (BEAKER) (test blss=4614) 76.3 degrees 61.0-73.0 TGH PLT. AGGREGATION (BEAKER) (test noqx=3288) 76.9 MM 55.0-65.0 TGH FIBRINOLYSIS (BEAKER) (test ugok=9484) 0.6 % 0.0-5.0 SODIUM NA-STAT [id number] 21:55:00* Test Item Value Reference Range Comments SODIUM (BEAKER) (test axfg=575) 143 meq/L 135-148 BLOOD GAS, [id number] 21:55:00* Test Item Value Reference Range Comments PH ARTERIAL (BEAKER) (test ckmm=220) 7.58 7.35-7.45 PCO2 ARTERIAL (BEAKER) (test zgkh=259) 36 mmHg 35-45 PO2 ARTERIAL (BEAKER) (test zzts=491) 53 mmHg 80-90 O2 SATURATION ARTERIAL (BEAKER) (test bsyt=414) 92.2 % 96.0-97.0 HCO3 ARTERIAL (BEAKER) (test mrsc=013) 33 mmol/L 21-29 BASE EXCESS ARTERIAL (BEAKER) (test gute=676) 10.1 mmol/L -2.0-3.0 PATIENT TEMPERATURE (BEAKER) (test njta=6411) 36.6 C FIO2 (BEAKER) (test kuin=6882) 65.0 % POTASSIUM-STAT [id number] 21:55:00* Test Item Value Reference Range Comments POTASSIUM (BEAKER) (test dsny=160) 3.3 meq/L 3.6-5.5 GLUCOSE-STAT [id number] 21:55:00* Test Item Value Reference Range Comments GLUCOSE RANDOM (BEAKER) (test cuyp=413) 139 mg/dL 70-110 HGB/HCT (H&H) - STAT [id number] 21:55:00* Test Item Value Reference Range Comments HEMOGLOBIN (BEAKER) (test efrc=959) 9.2 g/dL 12.0-15.0 HEMATOCRIT (BEAKER) (test mwtt=258) 27.0 % 36.0-45.0 HGB/HCT (H&H) - STAT [id number] 17:31:00* Test Item Value Reference Range Comments HEMOGLOBIN (BEAKER) (test jsrc=609) 7.5 g/dL 12.0-15.0 HEMATOCRIT (BEAKER) (test gwjd=049) 22.0 % 36.0-45.0 BLOOD GAS, [id number] 17:31:00* Test Item Value Reference Range Comments PH ARTERIAL (BEAKER) (test eiec=566) 7.48 7.35-7.45 PCO2 ARTERIAL (BEAKER) (test aapk=230) 48 mmHg 35-45 PO2 ARTERIAL (BEAKER) (test ybbm=573) 59 mmHg 80-90 O2 SATURATION ARTERIAL (BEAKER) (test ruab=621) 92.3 % 96.0-97.0 HCO3 ARTERIAL (BEAKER) (test lxua=734) 35 mmol/L 21-29 BASE EXCESS ARTERIAL (BEAKER) (test nqhj=348) 10.2 mmol/L -2.0-3.0 PATIENT TEMPERATURE (BEAKER) (test fdnb=0069) 36.8 C FIO2 (BEAKER) (test vcrw=0735) 100.0 % [id number] 17:10:00* Test Item Value Reference Range Comments FIBRINOGEN LEVEL (BEAKER) (test jwxa=209) 466 mg/dl 225-434 [id number] 16:05:00* Test Item Value Reference Range Comments PARTIAL THROMBOPLASTIN TIME (BEAKER) (test jleg=631) 33.0 seconds 22.5-36.0 BLOOD GAS, [id number] 15:47:00* Test Item Value Reference Range Comments PH ARTERIAL (BEAKER) (test xpfg=993) 7.47 7.35-7.45 PCO2 ARTERIAL (BEAKER) (test jhdg=270) 48 mmHg 35-45 PO2 ARTERIAL (BEAKER) (test fqld=685) 61 mmHg 80-90 O2 SATURATION ARTERIAL (BEAKER) (test nrsd=523) 92.6 % 96.0-97.0 HCO3 ARTERIAL (BEAKER) (test juil=831) 34 mmol/L 21-29 BASE EXCESS ARTERIAL (BEAKER) (test acsg=800) 9.4 mmol/L -2.0-3.0 PATIENT TEMPERATURE (BEAKER) (test hwlz=7284) 36.9 C FIO2 (BEAKER) (test xepj=9369) 70.0 % THROMBOELASTOGRAPH (TEG)2018-02-14 14:39:00* Test Item Value Reference Range Comments TEG ACTIVATED CLOTTING TIME (BEAKER) (test vtsf=3175) 27.8 minutes 4.0-7.0 TEG FIBRINOGEN ACTIVITY (BEAKER) (test ksla=1357) 12.9 degrees 61.0-73.0 TEG PLT. AGGREGATION (BEAKER) (test vjcy=8376) 18.2 MM 55.0-65.0 TEG FIBRINOLYSIS (BEAKER) (test ilxb=1801) 10.9 % 0.0-5.0 TGH ACTIVATED CLOTTING TIME (BEAKER) (test wwot=9456) 8.5 minutes 4.0-7.0 TGH FIBRINOGEN ACTIVITY (BEAKER) (test unwi=8949) 75.3 degrees 61.0-73.0 TGH PLT. AGGREGATION (BEAKER) (test sqct=7695) 77.9 MM 55.0-65.0 TGH FIBRINOLYSIS (BEAKER) (test wurw=4731) 5.5 % 0.0-5.0 VANCOMYCIN LEVEL, [id number] 13:31:00* Test Item Value Reference Range Comments VANCOMYCIN TROUGH (BEAKER) (test yfiu=649) 23.7 ug/mL 10.0-20.0 Please draw trough 30 minutes prior to vancomycin dose on 02/14.BLOOD GAS, [id number] 12:14:00* Test Item Value Reference Range Comments PH ARTERIAL (BEAKER) (test degg=712) 7.53 7.35-7.45 PCO2 ARTERIAL (BEAKER) (test kdvh=254) 44 mmHg 35-45 PO2 ARTERIAL (BEAKER) (test heoc=461) 76 mmHg 80-90 O2 SATURATION ARTERIAL (BEAKER) (test foxn=846) 96.4 % 96.0-97.0 HCO3 ARTERIAL (BEAKER) (test whjk=085) 36 mmol/L 21-29 BASE EXCESS ARTERIAL (BEAKER) (test irwr=692) 12.0 mmol/L -2.0-3.0 PATIENT TEMPERATURE (BEAKER) (test wamg=5461) 37.0 C FIO2 (BEAKER) (test hrde=9385) 70.0 % HEPARIN ASSAY - [id number] 11:26:00* Test Item Value Reference Range Comments UNFRACTIONATED HEPARIN-ANTI 10A (BEAKER) (test gzmt=0716) 0.35 u/ml 0.30-0.70 Recommendations for Monitoring Unfractionated Heparin Therapeutic Range: 0.3-0. 7 u/mL with continuous IV infusionBLOOD GAS, [id number] 07:25:00* Test Item Value Reference Range Comments PH ARTERIAL (BEAKER) (test cwgy=719) 7.49 7.35-7.45 PCO2 ARTERIAL (BEAKER) (test qeln=903) 49 mmHg 35-45 PO2 ARTERIAL (BEAKER) (test kloo=519) 54 mmHg 80-90 O2 SATURATION ARTERIAL (BEAKER) (test smcq=203) 90.1 % 96.0-97.0 HCO3 ARTERIAL (BEAKER) (test fuhr=329) 36 mmol/L 21-29 BASE EXCESS ARTERIAL (BEAKER) (test fklz=339) 11.8 mmol/L -2.0-3.0 PATIENT TEMPERATURE (BEAKER) (test jxuz=5546) 37.0 C FIO2 (BEAKER) (test pvle=3384) 60.0 % THROMBOELASTOGRAPH (TEG)2018-02-14 06:33:00* Test Item Value Reference Range Comments TEG ACTIVATED CLOTTING TIME (BEAKER) (test isdj=9253) 33.6 minutes 4.0-7.0 TEG FIBRINOGEN ACTIVITY (BEAKER) (test juhy=8266) 12.4 degrees 61.0-73.0 TEG PLT. AGGREGATION (BEAKER) (test baet=7029) 20.7 MM 55.0-65.0 TEG FIBRINOLYSIS (BEAKER) (test uzrt=7913) 0.0 % 0.0-5.0 TGH ACTIVATED CLOTTING TIME (BEAKER) (test dhmh=4755) 8.9 minutes 4.0-7.0 TGH FIBRINOGEN ACTIVITY (BEAKER) (test dgnj=8727) 69.8 degrees 61.0-73.0 TGH PLT. AGGREGATION (BEAKER) (test lppt=7433) 66.8 MM 55.0-65.0 TGH FIBRINOLYSIS (BEAKER) (test teio=9645) 0.0 % 0.0-5.0 HEMOGLOBIN-STAT [id number] 05:09:00* Test Item Value Reference Range Comments HEMOGLOBIN (BEAKER) (test nnsp=288) 7.4 g/dL 12.0-15.0 HEMATOCRIT-STAT [id number] 05:09:00* Test Item Value Reference Range Comments HEMATOCRIT (BEAKER) (test vstl=869) 22.0 % 36.0-45.0 BLOOD GAS, [id number] 05:09:00* Test Item Value Reference Range Comments PH ARTERIAL (BEAKER) (test izlm=009) 7.48 7.35-7.45 PCO2 ARTERIAL (BEAKER) (test gliv=491) 50 mmHg 35-45 PO2 ARTERIAL (BEAKER) (test srvc=790) 163 mmHg 80-90 O2 SATURATION ARTERIAL (BEAKER) (test yprv=637) 99.2 % 96.0-97.0 HCO3 ARTERIAL (BEAKER) (test fmif=942) 36 mmol/L 21-29 BASE EXCESS ARTERIAL (BEAKER) (test aknb=245) 11.3 mmol/L -2.0-3.0 PATIENT TEMPERATURE (BEAKER) (test dmtv=0399) 36.5 C FIO2 (BEAKER) (test bxgo=2769) 60.0 % POTASSIUM-STAT [id number] 05:08:00* Test Item Value Reference Range Comments POTASSIUM (BEAKER) (test olhb=666) 4.1 meq/L 3.6-5.5 RAD, CHEST, 1 VIEW, NON [id number] 04:25:00Reason for exam:-> ECMO/intubatedShould this be performed at the bedside?->YesIs the patient ?->UnknownFINAL REPORT RAD, CHEST, 1 VIEW, NON DEPT INDICATION: ECMO/intubated COMPARISON: Prior day's exam FINDINGS: Portable frontal view of the chest. IMPRESSION: Support Lines: Stable. Lungs and pleura: Clear right lung. Asymmetric congestive changes on the left similar to the prior examination. Persistent small left effusion. No pneumothorax.Heart and mediastinum: Stable contours. Stable surgical changes.Additional findings: None. Signed: JR Lucas Robert [facility] Verified Date/Time: 02/14/2018 04:25:25 Reading Location: [facility] B1 C013Y CT Body Reading Room IUM, IONIZED 2018-02-14 04:18:00* Test Item Value Reference Range Comments CALCIUM IONIZED (BEAKER) (test bopn=027) 1.05 mmol/L 1.12-1.27 PH, BLOOD (BEAKER) (test wggm=6438) 7.46 OXYGEN SATURATION, [id number] 04:15:00* Test Item Value Reference Range Comments O2 SATURATION (MEASURED) (BEAKER) (test hkaa=1283) 51.4 % BLOOD GAS, [id number] 04:10:00* Test Item Value Reference Range Comments PH ARTERIAL (BEAKER) (test fhtt=816) 7.43 7.35-7.45 PCO2 ARTERIAL (BEAKER) (test gzyb=327) 56 mmHg 35-45 PO2 ARTERIAL (BEAKER) (test pufi=293) 127 mmHg 80-90 O2 SATURATION ARTERIAL (BEAKER) (test chny=768) 98.6 % 96.0-97.0 HCO3 ARTERIAL (BEAKER) (test ydmu=243) 36 mmol/L 21-29 BASE EXCESS ARTERIAL (BEAKER) (test jfqx=933) 10.6 mmol/L -2.0-3.0 PATIENT TEMPERATURE (BEAKER) (test aked=3146) 36.5 C FIO2 (BEAKER) (test cwwh=2106) 60.0 % BLOOD GAS, [id number] 04:10:00* Test Item Value Reference Range Comments PH ARTERIAL (BEAKER) (test lvhr=896) 7.46 7.35-7.45 PCO2 ARTERIAL (BEAKER) (test dhnf=794) 51 mmHg 35-45 PO2 ARTERIAL (BEAKER) (test chps=579) 129 mmHg 80-90 O2 SATURATION ARTERIAL (BEAKER) (test gmgx=113) 98.7 % 96.0-97.0 HCO3 ARTERIAL (BEAKER) (test layt=895) 36 mmol/L 21-29 BASE EXCESS ARTERIAL (BEAKER) (test qdde=345) 10.7 mmol/L -2.0-3.0 PATIENT TEMPERATURE (BEAKER) (test olsz=5417) 36.8 C FIO2 (BEAKER) (test yxay=6497) 100.0 % GLUCOSE-STAT [id number] 04:10:00* Test Item Value Reference Range Comments GLUCOSE RANDOM (BEAKER) (test izbz=889) 187 mg/dL 70-110 POTASSIUM-STAT [id number] 04:00:00* Test Item Value Reference Range Comments POTASSIUM (BEAKER) (test qnlc=277) 4.0 meq/L 3.6-5.5 [id number] 03:56:00* Test Item Value Reference Range Comments PARTIAL THROMBOPLASTIN TIME (BEAKER) (test tioi=901) 82.1 seconds 22.5-36.0 [id number] 03:55:00* Test Item Value Reference Range Comments FIBRINOGEN LEVEL (BEAKER) (test zqtt=331) 471 mg/dl 225-434 PROTHROMBIN [id number] 03:54:00* Test Item Value Reference Range Comments PROTIME (BEAKER) (test aizl=039) 16.0 seconds 11.7-14.7 INR (BEAKER) (test rnon=515) 1.3 <=5.9 RECOMMENDED COUMADIN/WARFARIN INR THERAPY RANGESSTANDARD DOSE: 2.0 - 3.0 Inclu connie: PROPHYLAXIS for venous thrombosis, systemic embolization; TREATMENT for lupis ous thrombosis and/or pulmonary embolus.HIGH RISK: Target INR is 2.5-3.5 for pat ients with mechanical heart valves.[id number] 03:52:00* Test Item Value Reference Range Comments MAGNESIUM (BEAKER) (test gmln=496) 2.4 mg/dL 1.6-2.6 BASIC METABOLIC [id number] 03:52:00* Test Item Value Reference Range Comments SODIUM (BEAKER) (test dhje=676) 145 meq/L 136-145 POTASSIUM (BEAKER) (test qexh=670) 4.2 meq/L 3.5-5.1 CHLORIDE (BEAKER) (test vuup=194) 100 meq/L 98-107 CO2 (BEAKER) (test qows=116) 34 meq/L 22-29 BLOOD UREA NITROGEN (BEAKER) (test vfyl=028) 65 mg/dL 7-21 CREATININE (BEAKER) (test qgak=970) 1.33 mg/dL 0.57-1.25 GLUCOSE RANDOM (BEAKER) (test niln=395) 200 mg/dL 70-105 CALCIUM (BEAKER) (test yfbv=831) 8.6 mg/dL 8.4-10.2 EGFR (BEAKER) (test glek=1052) 42 mL/min/1.73 sq m ESTIMATED GFR IS NOT ACCURATE CREATININE CLEARANCE IN PREDICTING GLOMERULAR FILTRATION RATE. ESTIMATED GFR IS NOT APPLICABLE FOR DIALYSIS PATIENTS. Specimen slightly ictericHEPATIC FUNCTION [id number] 03:52:00* Test Item Value Reference Range Comments TOTAL PROTEIN (BEAKER) (test leoy=303) 5.9 gm/dL 6.0-8.3 ALBUMIN (BEAKER) (test zene=2986) 3.4 g/dL 3.5-5.0 BILIRUBIN TOTAL (BEAKER) (test dxdg=657) 3.3 mg/dL 0.2-1.2 BILIRUBIN DIRECT (BEAKER) (test lbys=760) 2.1 mg/dL 0.1-0.5 ALKALINE PHOSPHATASE (BEAKER) (test vcvh=003) 179 U/L 40-150 AST (SGOT) (BEAKER) (test xmqq=510) 54 U/L 5-34 ALT (SGPT) (BEAKER) (test ypfz=154) 31 U/L 6-55 Specimen slightly ictericLACTATE DEHYDROGENASE (LDH)2018-02-14 03:52:00* Test Item Value Reference Range Comments LACTATE DEHYDROGENASE (BEAKER) (test dqyb=995) 741 U/L 125-220 LACTIC ACID, ARTERIAL, WHOLE [id number] 03:47:00* Test Item Value Reference Range Comments LACTATE BLOOD ARTERIAL (2) (BEAKER) (test uylu=4907) 1.0 mmol/L 0.5-2.2 Effective 03/10/2016: Units/Reference Range ChangeNew: 0.5-2.2 mmol/L Previous: 5 -20 mg/dLSpecimen slightly ictericCBC (HEMOGRAM ONLY)2018-02-14 03:43:00* Test Item Value Reference Range Comments WHITE BLOOD CELL COUNT (BEAKER) (test bygx=759) 13.1 K/ L 3.5-10.5 RED BLOOD CELL COUNT (BEAKER) (test kawr=928) 2.24 M/ L 3.93-5.22 HEMOGLOBIN (BEAKER) (test jgtw=836) 6.6 GM/DL 11.2-15.7 HEMATOCRIT (BEAKER) (test souc=847) 21.5 % 34.1-44.9 MEAN CORPUSCULAR VOLUME (BEAKER) (test ryfn=712) 96.0 fL 79.4-94.8 MEAN CORPUSCULAR HEMOGLOBIN (BEAKER) (test jpeg=117) 29.5 pg 25.6-32.2 MEAN CORPUSCULAR HEMOGLOBIN CONC (BEAKER) (test rwdz=288) 30.7 GM/DL 32.2-35.5 RED CELL DISTRIBUTION WIDTH (BEAKER) (test ghpq=925) 18.7 % 11.7-14.4 PLATELET COUNT (BEAKER) (test fmvg=663) 214 K/CU MM 150-450 MEAN PLATELET VOLUME (BEAKER) (test vrdw=504) 10.7 fL 9.4-12.3 NUCLEATED RED BLOOD CELLS (BEAKER) (test fvtp=949) 4 /100 WBC 0-0 BLOOD GAS, [id number] 01:54:00* Test Item Value Reference Range Comments PH ARTERIAL (BEAKER) (test ewug=718) 7.51 7.35-7.45 PCO2 ARTERIAL (BEAKER) (test wbfz=218) 44 mmHg 35-45 PO2 ARTERIAL (BEAKER) (test jgiy=470) 131 mmHg 80-90 O2 SATURATION ARTERIAL (BEAKER) (test kyue=024) 98.9 % 96.0-97.0 HCO3 ARTERIAL (BEAKER) (test mwbu=577) 35 mmol/L 21-29 BASE EXCESS ARTERIAL (BEAKER) (test enjx=901) 10.8 mmol/L -2.0-3.0 PATIENT TEMPERATURE (BEAKER) (test xrjv=0763) 36.5 C FIO2 (BEAKER) (test kxfm=9989) 100.0 % BLOOD GAS, [id number] 00:56:00* Test Item Value Reference Range Comments PH ARTERIAL (BEAKER) (test ndux=305) 7.48 7.35-7.45 PCO2 ARTERIAL (BEAKER) (test aokx=050) 50 mmHg 35-45 PO2 ARTERIAL (BEAKER) (test ydfd=315) 154 mmHg 80-90 O2 SATURATION ARTERIAL (BEAKER) (test bqfz=078) 99.1 % 96.0-97.0 HCO3 ARTERIAL (BEAKER) (test duao=936) 36 mmol/L 21-29 BASE EXCESS ARTERIAL (BEAKER) (test ndbt=435) 11.5 mmol/L -2.0-3.0 PATIENT TEMPERATURE (BEAKER) (test latk=6227) 36.8 C FIO2 (BEAKER) (test dwsp=3338) 100.0 % [id number] 23:49:00* Test Item Value Reference Range Comments PARTIAL THROMBOPLASTIN TIME (BEAKER) (test zoun=367) 72.7 seconds 22.5-36.0 BLOOD GAS, [id number] 23:28:00* Test Item Value Reference Range Comments PH ARTERIAL (BEAKER) (test lzzn=494) 7.45 7.35-7.45 PCO2 ARTERIAL (BEAKER) (test cspz=581) 56 mmHg 35-45 PO2 ARTERIAL (BEAKER) (test gxlq=372) 152 mmHg 80-90 O2 SATURATION ARTERIAL (BEAKER) (test pnbm=187) 99.0 % 96.0-97.0 HCO3 ARTERIAL (BEAKER) (test vexc=750) 38 mmol/L 21-29 BASE EXCESS ARTERIAL (BEAKER) (test wnjw=069) 12.4 mmol/L -2.0-3.0 PATIENT TEMPERATURE (BEAKER) (test zmax=3227) 36.8 C FIO2 (BEAKER) (test pokr=8215) 100.0 % THROMBOELASTOGRAPH (TEG)2018-02-13 22:43:00* Test Item Value Reference Range Comments TEG ACTIVATED CLOTTING TIME (BEAKER) (test taxn=4952) 27.9 minutes 4.0-7.0 TEG FIBRINOGEN ACTIVITY (BEAKER) (test lvkn=1200) 12.9 degrees 61.0-73.0 TEG PLT. AGGREGATION (BEAKER) (test moph=7844) 14.8 MM 55.0-65.0 TEG FIBRINOLYSIS (BEAKER) (test xapz=9874) 0.0 % 0.0-5.0 TGH ACTIVATED CLOTTING TIME (BEAKER) (test bogs=5452) 6.8 minutes 4.0-7.0 TGH FIBRINOGEN ACTIVITY (BEAKER) (test gdxd=1553) 74.4 degrees 61.0-73.0 TGH PLT. AGGREGATION (BEAKER) (test fbys=3534) 63.5 MM 55.0-65.0 TGH FIBRINOLYSIS (BEAKER) (test aysa=3977) 3.4 % 0.0-5.0 BLOOD GAS, [id number] 21:04:00* Test Item Value Reference Range Comments PH ARTERIAL (BEAKER) (test ijgr=238) 7.48 7.35-7.45 PCO2 ARTERIAL (BEAKER) (test ydqr=817) 51 mmHg 35-45 PO2 ARTERIAL (BEAKER) (test lgfu=456) 204 mmHg 80-90 O2 SATURATION ARTERIAL (BEAKER) (test wjmj=289) 99.4 % 96.0-97.0 HCO3 ARTERIAL (BEAKER) (test rcdj=434) 37 mmol/L 21-29 BASE EXCESS ARTERIAL (BEAKER) (test slud=451) 12.3 mmol/L -2.0-3.0 PATIENT TEMPERATURE (BEAKER) (test qipy=6594) 36.6 C FIO2 (BEAKER) (test kfnz=9231) 100.0 % GLUCOSE-STAT [id number] 21:04:00* Test Item Value Reference Range Comments GLUCOSE RANDOM (BEAKER) (test hcee=507) 161 mg/dL 70-110 POTASSIUM-STAT [id number] 21:03:00* Test Item Value Reference Range Comments POTASSIUM (BEAKER) (test aaiz=050) 4.0 meq/L 3.6-5.5 POCT-GLUCOSE [id number] 17:38:00* Test Item Value Reference Range Comments POC-GLUCOSE METER (BEAKER) (test kwct=0700) 170 mg/dL 70-110 [address] [address] [id number] 16:30:00* Test Item Value Reference Range Comments PARTIAL THROMBOPLASTIN TIME (BEAKER) (test vvim=286) 60.4 seconds 22.5-36.0 [id number] 16:29:00* Test Item Value Reference Range Comments FIBRINOGEN LEVEL (BEAKER) (test egnv=121) 509 mg/dl 225-434 THROMBOELASTOGRAPH (TEG)2018-02-13 13:17:00* Test Item Value Reference Range Comments TEG ACTIVATED CLOTTING TIME (BEAKER) (test wdgw=9368) 17.4 minutes 4.0-7.0 TEG FIBRINOGEN ACTIVITY (BEAKER) (test bmkn=4931) 41.8 degrees 61.0-73.0 TEG PLT. AGGREGATION (BEAKER) (test khaq=1083) 66.1 MM 55.0-65.0 TEG FIBRINOLYSIS (BEAKER) (test wnsm=5396) 9.4 % 0.0-5.0 TGH ACTIVATED CLOTTING TIME (BEAKER) (test wwbb=5709) 7.1 minutes 4.0-7.0 TGH FIBRINOGEN ACTIVITY (BEAKER) (test pcob=6906) 71.7 degrees 61.0-73.0 TGH PLT. AGGREGATION (BEAKER) (test txbi=0219) 63.2 MM 55.0-65.0 TGH FIBRINOLYSIS (BEAKER) (test mbtw=8871) 0.0 % 0.0-5.0 BLOOD GAS, [id number] 12:33:00* Test Item Value Reference Range Comments PH ARTERIAL (BEAKER) (test ubal=442) 7.50 7.35-7.45 PCO2 ARTERIAL (BEAKER) (test tqnt=248) 49 mmHg 35-45 PO2 ARTERIAL (BEAKER) (test fhoh=234) 59 mmHg 80-90 O2 SATURATION ARTERIAL (BEAKER) (test ywaq=694) 92.7 % 96.0-97.0 HCO3 ARTERIAL (BEAKER) (test xbly=821) 37 mmol/L 21-29 BASE EXCESS ARTERIAL (BEAKER) (test dqwk=454) 12.9 mmol/L -2.0-3.0 PATIENT TEMPERATURE (BEAKER) (test szlt=8360) 36.8 C FIO2 (BEAKER) (test sbdg=1438) 100.0 % GLUCOSE-STAT [id number] 12:33:00* Test Item Value Reference Range Comments GLUCOSE RANDOM (BEAKER) (test cuho=616) 161 mg/dL 70-110 CALCIUM, [id number] 12:32:00* Test Item Value Reference Range Comments CALCIUM IONIZED (BEAKER) (test otdr=431) 1.01 mmol/L 1.12-1.27 PH, BLOOD (BEAKER) (test cage=1696) 7.50 ANTITHROMBIN [id number] 10:55:00* Test Item Value Reference Range Comments ANTITHROMBIN III ACTIVITY (BEAKER) (test kaym=869) 61.0 % 80.0-120.0 BLOOD GAS, [id number] 10:45:00* Test Item Value Reference Range Comments PH ARTERIAL (BEAKER) (test fvih=375) 7.51 7.35-7.45 PCO2 ARTERIAL (BEAKER) (test pjna=600) 46 mmHg 35-45 PO2 ARTERIAL (BEAKER) (test tuns=746) 63 mmHg 80-90 O2 SATURATION ARTERIAL (BEAKER) (test rqpi=386) 94.8 % 96.0-97.0 HCO3 ARTERIAL (BEAKER) (test lfua=456) 36 mmol/L 21-29 BASE EXCESS ARTERIAL (BEAKER) (test qwnj=527) 11.8 mmol/L -2.0-3.0 PATIENT TEMPERATURE (BEAKER) (test qvdn=4710) 35.7 C FIO2 (BEAKER) (test lcky=9491) 100.0 % GLUCOSE-STAT [id number] 10:45:00* Test Item Value Reference Range Comments GLUCOSE RANDOM (BEAKER) (test rwlu=328) 147 mg/dL 70-110 HEPARIN ASSAY - [id number] 10:07:00* Test Item Value Reference Range Comments UNFRACTIONATED HEPARIN-ANTI 10A (BEAKER) (test gzkl=3677) 0.13 u/ml 0.30-0.70 Recommendations for Monitoring Unfractionated Heparin Therapeutic Range: 0.3-0. 7 u/mL with continuous IV infusionBLOOD GAS, [id number] 09:05:00* Test Item Value Reference Range Comments PH ARTERIAL (BEAKER) (test zwsm=635) 7.49 7.35-7.45 PCO2 ARTERIAL (BEAKER) (test ndax=665) 48 mmHg 35-45 PO2 ARTERIAL (BEAKER) (test utgj=970) 94 mmHg 80-90 O2 SATURATION ARTERIAL (BEAKER) (test rwti=663) 97.6 % 96.0-97.0 HCO3 ARTERIAL (BEAKER) (test xojh=157) 36 mmol/L 21-29 BASE EXCESS ARTERIAL (BEAKER) (test vbzi=245) 11.6 mmol/L -2.0-3.0 PATIENT TEMPERATURE (BEAKER) (test ptod=7324) 36.7 C FIO2 (BEAKER) (test jlfv=7406) 60.0 % THROMBOELASTOGRAPH (TEG)2018-02-13 08:51:00* Test Item Value Reference Range Comments TEG ACTIVATED CLOTTING TIME (BEAKER) (test dtfk=4930) 20.9 minutes 4.0-7.0 TEG FIBRINOGEN ACTIVITY (BEAKER) (test tvmd=4643) 20.2 degrees 61.0-73.0 TEG PLT. AGGREGATION (BEAKER) (test wbih=7520) 46.4 MM 55.0-65.0 TEG FIBRINOLYSIS (BEAKER) (test bura=6182) 0.0 % 0.0-5.0 TGH ACTIVATED CLOTTING TIME (BEAKER) (test ctdq=0666) 9.6 minutes 4.0-7.0 TGH FIBRINOGEN ACTIVITY (BEAKER) (test kjir=2606) 71.5 degrees 61.0-73.0 TGH PLT. AGGREGATION (BEAKER) (test onzs=7204) 69.5 MM 55.0-65.0 TGH FIBRINOLYSIS (BEAKER) (test pnpj=2657) 0.1 % 0.0-5.0 THROMBOELASTOGRAPH (TEG)2018-02-13 07:32:00* Test Item Value Reference Range Comments TEG ACTIVATED CLOTTING TIME (BEAKER) (test npjo=4960) 25.3 minutes 4.0-7.0 TEG FIBRINOGEN ACTIVITY (BEAKER) (test ftya=2105) 17.6 degrees 61.0-73.0 TEG PLT. AGGREGATION (BEAKER) (test hofj=9961) 64.1 MM 55.0-65.0 TEG FIBRINOLYSIS (BEAKER) (test ukqh=2887) 1.7 % 0.0-5.0 TGH ACTIVATED CLOTTING TIME (BEAKER) (test sret=1777) 8.0 minutes 4.0-7.0 TGH FIBRINOGEN ACTIVITY (BEAKER) (test yztn=8016) 70.3 degrees 61.0-73.0 TGH PLT. AGGREGATION (BEAKER) (test ilqk=5384) 65.0 MM 55.0-65.0 TGH FIBRINOLYSIS (BEAKER) (test lwbh=8187) 0.0 % 0.0-5.0 BLOOD GAS, [id number] 06:31:00* Test Item Value Reference Range Comments PH ARTERIAL (BEAKER) (test zctn=215) 7.48 7.35-7.45 PCO2 ARTERIAL (BEAKER) (test huzy=940) 49 mmHg 35-45 PO2 ARTERIAL (BEAKER) (test eleq=040) 129 mmHg 80-90 O2 SATURATION ARTERIAL (BEAKER) (test fdwg=765) 98.8 % 96.0-97.0 HCO3 ARTERIAL (BEAKER) (test qctt=256) 36 mmol/L 21-29 BASE EXCESS ARTERIAL (BEAKER) (test geaz=829) 10.9 mmol/L -2.0-3.0 PATIENT TEMPERATURE (BEAKER) (test lguj=3401) 36.3 C FIO2 (BEAKER) (test cvke=6364) 60.0 % RAD, CHEST, 1 VIEW, NON [id number] 03:59:00Reason for exam:-> ECMO/intubatedShould this be performed at the bedside?->YesIs the patient ?->UnknownFINAL REPORT RAD, CHEST, 1 VIEW, NON DEPT INDICATION: ECMO/intubated COMPARISON: Prior day's exam FINDINGS: Portable frontal view of the chest. IMPRESSION: Support Lines: Stable. Lungs and pleura: Unchanged airspace and pleural opacities. No pneumothorax.Heart and mediastinum: Stable contours. Stable surgical changes.Additional findings: None. Signed: JR Lucas Robert MDReport Verified Date/Time: 02/13/2018 03:59:21 Reading Location: [address] Body Reading Room TIC FUNCTION PANEL 2018-02-13 03:54:00* Test Item Value Reference Range Comments TOTAL PROTEIN (BEAKER) (test jvze=804) 6.2 gm/dL 6.0-8.3 ALBUMIN (BEAKER) (test jfaz=4550) 3.5 g/dL 3.5-5.0 BILIRUBIN TOTAL (BEAKER) (test fwoi=728) 4.1 mg/dL 0.2-1.2 BILIRUBIN DIRECT (BEAKER) (test hgkc=949) 2.7 mg/dL 0.1-0.5 ALKALINE PHOSPHATASE (BEAKER) (test hevm=013) 187 U/L 40-150 AST (SGOT) (BEAKER) (test gylr=843) 59 U/L 5-34 ALT (SGPT) (BEAKER) (test tlkr=201) 28 U/L 6-55 Specimen slightly [id number] 03:49:00* Test Item Value Reference Range Comments MAGNESIUM (BEAKER) (test cyzh=544) 2.7 mg/dL 1.6-2.6 BASIC METABOLIC [id number] 03:49:00* Test Item Value Reference Range Comments SODIUM (BEAKER) (test vgyn=874) 142 meq/L 136-145 POTASSIUM (BEAKER) (test uscp=458) 4.2 meq/L 3.5-5.1 CHLORIDE (BEAKER) (test uxee=717) 97 meq/L 98-107 CO2 (BEAKER) (test dkrf=438) 32 meq/L 22-29 BLOOD UREA NITROGEN (BEAKER) (test zaav=662) 57 mg/dL 7-21 CREATININE (BEAKER) (test xbin=614) 1.33 mg/dL 0.57-1.25 GLUCOSE RANDOM (BEAKER) (test mpsj=891) 167 mg/dL 70-105 CALCIUM (BEAKER) (test wykb=358) 8.8 mg/dL 8.4-10.2 EGFR (BEAKER) (test tubu=5880) 42 mL/min/1.73 sq m ESTIMATED GFR IS NOT ACCURATE CREATININE CLEARANCE IN PREDICTING GLOMERULAR FILTRATION RATE. ESTIMATED GFR IS NOT APPLICABLE FOR DIALYSIS PATIENTS. Specimen slightly ictericLACTATE DEHYDROGENASE (LDH)2018-02-13 03:49:00* Test Item Value Reference Range Comments LACTATE DEHYDROGENASE (BEAKER) (test adxq=695) 755 U/L 125-220 [id number] 03:47:00* Test Item Value Reference Range Comments D-DIMER QUANTITATIVE (BEAKER) (test ucil=432) 9.02 MG/L FEU <0.50 Intended Use: The D-Dimer Assay can be used to aid in the diagnosis of Deep Vein Thrombosis (DVT) and Pulmonary Embolism Disease (PED).In patients with low pre- test probability, various studies concerning STA Liatest D-dimer test have repor emily that with a cutoff value of 0.50 MG/L FEU, the Negative Predictive Value (ELEVATED WORK PLATFORM OPERATOR V) regarding the exclusion of thrombosis is within 95-100% range.LACTIC ACID, ARTERIAL, WHOLE [id number] 03:45:00* Test Item Value Reference Range Comments LACTATE BLOOD ARTERIAL (2) (BEAKER) (test egip=7641) 1.3 mmol/L 0.5-2.2 Effective 03/10/2016: Units/Reference Range ChangeNew: 0.5-2.2 mmol/L Previous: 5 -20 mg/dLSpecimen slightly [id number] 03:40:00* Test Item Value Reference Range Comments FIBRINOGEN LEVEL (BEAKER) (test zxnh=117) 542 mg/dl 225-434 [id number] 03:40:00* Test Item Value Reference Range Comments PARTIAL THROMBOPLASTIN TIME (BEAKER) (test uhiw=241) 62.4 seconds 22.5-36.0 PROTHROMBIN TIME/[id number] 03:39:00* Test Item Value Reference Range Comments PROTIME (BEAKER) (test qkto=943) 16.9 seconds 11.7-14.7 INR (BEAKER) (test rykp=804) 1.4 <=5.9 RECOMMENDED COUMADIN/WARFARIN INR THERAPY RANGESSTANDARD DOSE: 2.0 - 3.0 Inclu connie: PROPHYLAXIS for venous thrombosis, systemic embolization; TREATMENT for lupis ous thrombosis and/or pulmonary embolus.HIGH RISK: Target INR is 2.5-3.5 for pat ients with mechanical heart valves.CALCIUM, [id number] 03:36:00* Test Item Value Reference Range Comments CALCIUM IONIZED (BEAKER) (test thqn=397) 1.04 mmol/L 1.12-1.27 PH, BLOOD (BEAKER) (test raaq=9149) 7.47 POTASSIUM-STAT [id number] 03:35:00* Test Item Value Reference Range Comments POTASSIUM (BEAKER) (test kkva=224) 4.0 meq/L 3.6-5.5 OXYGEN SATURATION, [id number] 03:35:00* Test Item Value Reference Range Comments O2 SATURATION (MEASURED) (BEAKER) (test ybyt=4104) 43.8 % BLOOD GAS, [id number] 03:35:00* Test Item Value Reference Range Comments PH ARTERIAL (BEAKER) (test fblp=529) 7.47 7.35-7.45 PCO2 ARTERIAL (BEAKER) (test jtvn=326) 47 mmHg 35-45 PO2 ARTERIAL (BEAKER) (test kttk=770) 75 mmHg 80-90 O2 SATURATION ARTERIAL (BEAKER) (test mzxq=106) 95.9 % 96.0-97.0 HCO3 ARTERIAL (BEAKER) (test gowr=396) 34 mmol/L 21-29 BASE EXCESS ARTERIAL (BEAKER) (test vpsc=199) 9.1 mmol/L -2.0-3.0 PATIENT TEMPERATURE (BEAKER) (test gnbl=2254) 36.6 C FIO2 (BEAKER) (test mubw=0150) 60.0 % GLUCOSE-STAT [id number] 03:35:00* Test Item Value Reference Range Comments GLUCOSE RANDOM (BEAKER) (test kcha=714) 147 mg/dL 70-110 CBC (HEMOGRAM ONLY)2018-02-13 03:33:00* Test Item Value Reference Range Comments WHITE BLOOD CELL COUNT (BEAKER) (test lfbh=701) 15.8 K/ L 3.5-10.5 RED BLOOD CELL COUNT (BEAKER) (test dtni=675) 2.52 M/ L 3.93-5.22 HEMOGLOBIN (BEAKER) (test uyyp=278) 7.5 GM/DL 11.2-15.7 HEMATOCRIT (BEAKER) (test yvef=463) 23.9 % 34.1-44.9 MEAN CORPUSCULAR VOLUME (BEAKER) (test oclt=353) 94.8 fL 79.4-94.8 MEAN CORPUSCULAR HEMOGLOBIN (BEAKER) (test hscx=609) 29.8 pg 25.6-32.2 MEAN CORPUSCULAR HEMOGLOBIN CONC (BEAKER) (test lcqa=206) 31.4 GM/DL 32.2-35.5 RED CELL DISTRIBUTION WIDTH (BEAKER) (test ecjg=595) 18.3 % 11.7-14.4 PLATELET COUNT (BEAKER) (test qgmk=803) 222 K/CU MM 150-450 MEAN PLATELET VOLUME (BEAKER) (test dygt=969) 10.5 fL 9.4-12.3 NUCLEATED RED BLOOD CELLS (BEAKER) (test tskx=530) 4 /100 WBC 0-0 BLOOD [id number] 00:00:00* Test Item Value Reference Range Comments CULTURE (BEAKER) (test aknd=1598) No growth in 5 days BLOOD GAS, [id number] 23:22:00* Test Item Value Reference Range Comments PH ARTERIAL (BEAKER) (test byik=737) 7.49 7.35-7.45 PCO2 ARTERIAL (BEAKER) (test qzjs=554) 45 mmHg 35-45 PO2 ARTERIAL (BEAKER) (test ehqn=133) 113 mmHg 80-90 O2 SATURATION ARTERIAL (BEAKER) (test rdyr=158) 98.4 % 96.0-97.0 HCO3 ARTERIAL (BEAKER) (test gbdy=280) 33 mmol/L 21-29 BASE EXCESS ARTERIAL (BEAKER) (test rpel=561) 9.0 mmol/L -2.0-3.0 PATIENT TEMPERATURE (BEAKER) (test plfz=4920) 36.9 C FIO2 (BEAKER) (test fjps=4586) 60.0 % GLUCOSE-STAT [id number] 23:22:00* Test Item Value Reference Range Comments GLUCOSE RANDOM (BEAKER) (test chwo=242) 150 mg/dL 70-110 POTASSIUM-STAT [id number] 23:21:00* Test Item Value Reference Range Comments POTASSIUM (BEAKER) (test cwio=231) 4.0 meq/L 3.6-5.5 THROMBOELASTOGRAPH (TEG)2018-02-12 21:27:00* Test Item Value Reference Range Comments TEG ACTIVATED CLOTTING TIME (BEAKER) (test feca=0412) 22.1 minutes 4.0-7.0 TEG FIBRINOGEN ACTIVITY (BEAKER) (test lfko=7940) 18.7 degrees 61.0-73.0 TEG PLT. AGGREGATION (BEAKER) (test spxy=6214) 60.3 MM 55.0-65.0 TEG FIBRINOLYSIS (BEAKER) (test mfea=1085) 2.8 % 0.0-5.0 TGH ACTIVATED CLOTTING TIME (BEAKER) (test zctp=4965) 6.8 minutes 4.0-7.0 TGH FIBRINOGEN ACTIVITY (BEAKER) (test gsyd=6006) 74.3 degrees 61.0-73.0 TGH PLT. AGGREGATION (BEAKER) (test utiq=4717) 63.3 MM 55.0-65.0 TGH FIBRINOLYSIS (BEAKER) (test gxre=6602) 3.1 % 0.0-5.0 [id number] 16:38:00* Test Item Value Reference Range Comments PHOSPHORUS (BEAKER) (test seya=036) 3.6 mg/dL 2.3-4.7 Check Serum Phosphorus level 4 hours after IV phosphorus replacement or 8 hours after PO replacement completed.[id number] 16:38:00* Test Item Value Reference Range Comments MAGNESIUM (BEAKER) (test wtqn=543) 3.0 mg/dL 1.6-2.6 Check Serum Phosphorus level 4 hours after IV phosphorus replacement or 8 hours after PO replacement completed.[id number] 16:35:00* Test Item Value Reference Range Comments FIBRINOGEN LEVEL (BEAKER) (test atzy=858) 573 mg/dl 225-434 [id number] 16:31:00* Test Item Value Reference Range Comments PARTIAL THROMBOPLASTIN TIME (BEAKER) (test tcxk=917) 63.6 seconds 22.5-36.0 BLOOD GAS, [id number] 16:29:00* Test Item Value Reference Range Comments PH ARTERIAL (BEAKER) (test cecl=228) 7.47 7.35-7.45 PCO2 ARTERIAL (BEAKER) (test ejkz=723) 49 mmHg 35-45 PO2 ARTERIAL (BEAKER) (test jkjl=729) 85 mmHg 80-90 O2 SATURATION ARTERIAL (BEAKER) (test lxxi=764) 96.8 % 96.0-97.0 HCO3 ARTERIAL (BEAKER) (test pssp=777) 35 mmol/L 21-29 BASE EXCESS ARTERIAL (BEAKER) (test vnir=435) 10.4 mmol/L -2.0-3.0 PATIENT TEMPERATURE (BEAKER) (test ruga=5437) 36.8 C FIO2 (BEAKER) (test xrru=7613) 60.0 % GLUCOSE-STAT [id number] 16:29:00* Test Item Value Reference Range Comments GLUCOSE RANDOM (BEAKER) (test viza=170) 163 mg/dL 70-110 THROMBOELASTOGRAPH (TEG)2018-02-12 13:21:00* Test Item Value Reference Range Comments TEG ACTIVATED CLOTTING TIME (BEAKER) (test xsgf=9760) 24.6 minutes 4.0-7.0 TEG FIBRINOGEN ACTIVITY (BEAKER) (test wpbz=4122) 17.3 degrees 61.0-73.0 TEG PLT. AGGREGATION (BEAKER) (test ifiy=4741) 60.3 MM 55.0-65.0 TEG FIBRINOLYSIS (BEAKER) (test gikv=2248) 0.4 % 0.0-5.0 TGH ACTIVATED CLOTTING TIME (BEAKER) (test vtrx=2833) 15.1 minutes 4.0-7.0 TGH FIBRINOGEN ACTIVITY (BEAKER) (test lpjm=5883) 56.0 degrees 61.0-73.0 TGH PLT. AGGREGATION (BEAKER) (test hlhm=5620) 68.7 MM 55.0-65.0 TGH FIBRINOLYSIS (BEAKER) (test cwmz=2121) 0.0 % 0.0-5.0 [id number] 12:52:00* Test Item Value Reference Range Comments POTASSIUM (BEAKER) (test bxtl=523) 4.5 meq/L 3.5-5.1 PRN - repeat potassium levels every 1 hour until glucose level is less than 450 mg/dLBLOOD GAS, [id number] 12:28:00* Test Item Value Reference Range Comments PH ARTERIAL (BEAKER) (test uusb=887) 7.49 7.35-7.45 PCO2 ARTERIAL (BEAKER) (test dosd=290) 46 mmHg 35-45 PO2 ARTERIAL (BEAKER) (test nvsq=583) 66 mmHg 80-90 O2 SATURATION ARTERIAL (BEAKER) (test ydit=677) 94.8 % 96.0-97.0 HCO3 ARTERIAL (BEAKER) (test qars=536) 35 mmol/L 21-29 BASE EXCESS ARTERIAL (BEAKER) (test tcuc=717) 10.2 mmol/L -2.0-3.0 PATIENT TEMPERATURE (BEAKER) (test plms=8388) 36.3 C FIO2 (BEAKER) (test hbch=6190) 60.0 % GLUCOSE-STAT [id number] 12:28:00* Test Item Value Reference Range Comments GLUCOSE RANDOM (BEAKER) (test tkwj=752) 155 mg/dL 70-110 URINE [id number] 08:56:00* Test Item Value Reference Range Comments CULTURE (BEAKER) (test zovu=2256) No growth GRAM STAIN RESULT (BEAKER) (test ksgw=2389) <1+ WBCs GRAM STAIN RESULT (BEAKER) (test poga=27027) No organisms seen BLOOD GAS, [id number] 08:27:00* Test Item Value Reference Range Comments PH ARTERIAL (BEAKER) (test ctrd=030) 7.49 7.35-7.45 PCO2 ARTERIAL (BEAKER) (test isbu=426) 46 mmHg 35-45 PO2 ARTERIAL (BEAKER) (test lrhf=646) 67 mmHg 80-90 O2 SATURATION ARTERIAL (BEAKER) (test dfpm=827) 95.0 % 96.0-97.0 HCO3 ARTERIAL (BEAKER) (test nmov=880) 34 mmol/L 21-29 BASE EXCESS ARTERIAL (BEAKER) (test ghxw=815) 9.7 mmol/L -2.0-3.0 PATIENT TEMPERATURE (BEAKER) (test ihbv=5287) 36.3 C FIO2 (BEAKER) (test bgej=0573) 60.0 % GLUCOSE-STAT [id number] 08:27:00* Test Item Value Reference Range Comments GLUCOSE RANDOM (BEAKER) (test kmmm=652) 154 mg/dL 70-110 SPUTUM CULTURE + GRAM [id number] 08:06:00* Test Item Value Reference Range Comments CULTURE (BEAKER) (test nxez=9436) <1+ Normal respiratory alan present GRAM STAIN RESULT (BEAKER) (test ouvz=6015) 4+ WBCs GRAM STAIN RESULT (BEAKER) (test qeub=83155) 0-5 epithelial cells GRAM STAIN RESULT (BEAKER) (test fsdb=57558) No organisms seen CBC (HEMOGRAM ONLY)2018-02-12 07:00:00* Test Item Value Reference Range Comments WHITE BLOOD CELL COUNT (BEAKER) (test yhxj=910) 20.3 K/ L 3.5-10.5 RED BLOOD CELL COUNT (BEAKER) (test qbxm=251) 2.55 M/ L 3.93-5.22 HEMOGLOBIN (BEAKER) (test ejnr=175) 7.6 GM/DL 11.2-15.7 HEMATOCRIT (BEAKER) (test crrx=420) 24.2 % 34.1-44.9 MEAN CORPUSCULAR VOLUME (BEAKER) (test qobp=261) 94.9 fL 79.4-94.8 MEAN CORPUSCULAR HEMOGLOBIN (BEAKER) (test rtdh=443) 29.8 pg 25.6-32.2 MEAN CORPUSCULAR HEMOGLOBIN CONC (BEAKER) (test nwyx=680) 31.4 GM/DL 32.2-35.5 RED CELL DISTRIBUTION WIDTH (BEAKER) (test lrls=864) 17.9 % 11.7-14.4 PLATELET COUNT (BEAKER) (test dorq=372) 186 K/CU MM 150-450 MEAN PLATELET VOLUME (BEAKER) (test zkyk=134) 11.5 fL 9.4-12.3 NUCLEATED RED BLOOD CELLS (BEAKER) (test drxz=671) 3 /100 WBC 0-0 GLUCOSE-STAT [id number] 06:31:00* Test Item Value Reference Range Comments GLUCOSE RANDOM (BEAKER) (test ydgg=302) 156 mg/dL 70-110 BLOOD GAS, [id number] 06:31:00* Test Item Value Reference Range Comments PH ARTERIAL (BEAKER) (test uofo=214) 7.45 7.35-7.45 PCO2 ARTERIAL (BEAKER) (test vyhu=055) 51 mmHg 35-45 PO2 ARTERIAL (BEAKER) (test crhj=818) 136 mmHg 80-90 O2 SATURATION ARTERIAL (BEAKER) (test qxbn=118) 98.8 % 96.0-97.0 HCO3 ARTERIAL (BEAKER) (test wxio=217) 34 mmol/L 21-29 BASE EXCESS ARTERIAL (BEAKER) (test bbhr=786) 9.3 mmol/L -2.0-3.0 PATIENT TEMPERATURE (BEAKER) (test ooqx=8583) 37.0 C FIO2 (BEAKER) (test axib=9484) 65.0 % BLOOD GAS, [id number] 06:31:00* Test Item Value Reference Range Comments PH ARTERIAL (BEAKER) (test llmw=499) 7.41 7.35-7.45 PCO2 ARTERIAL (BEAKER) (test hrxy=527) 57 mmHg 35-45 PO2 ARTERIAL (BEAKER) (test rvjk=375) 422 mmHg 80-90 O2 SATURATION ARTERIAL (BEAKER) (test uxqr=657) 99.8 % 96.0-97.0 HCO3 ARTERIAL (BEAKER) (test dkye=970) 36 mmol/L 21-29 BASE EXCESS ARTERIAL (BEAKER) (test tdzn=564) 9.6 mmol/L -2.0-3.0 PATIENT TEMPERATURE (BEAKER) (test xzko=6418) 36.4 C FIO2 (BEAKER) (test dfmv=6927) 100.0 % THROMBOELASTOGRAPH (TEG)2018-02-12 06:28:00* Test Item Value Reference Range Comments TEG ACTIVATED CLOTTING TIME (BEAKER) (test wtym=7288) 27.3 minutes 4.0-7.0 TEG FIBRINOGEN ACTIVITY (BEAKER) (test zwqr=6141) 20.5 degrees 61.0-73.0 [address]G PLT. AGGREGATION (BEAKER) (test vvai=6980) 65.4 MM 55.0-65.0 TEG FIBRINOLYSIS (BEAKER) (test fbxu=0248) 0.0 % 0.0-5.0 TGH ACTIVATED CLOTTING TIME (BEAKER) (test gpjg=9970) 8.0 minutes 4.0-7.0 TGH FIBRINOGEN ACTIVITY (BEAKER) (test zgsi=3814) 73.0 degrees 61.0-73.0 TGH PLT. AGGREGATION (BEAKER) (test wghg=4126) 61.9 MM 55.0-65.0 TGH FIBRINOLYSIS (BEAKER) (test ubco=3037) 0.0 % 0.0-5.0 POTASSIUM-STAT [id number] 06:23:00* Test Item Value Reference Range Comments POTASSIUM (BEAKER) (test qjqs=190) 3.9 meq/L 3.6-5.5 RAD, CHEST, 1 VIEW, NON [id number] 04:08:00Reason for exam:-> ECMO/intubatedShould this be performed at the bedside?->YesIs the patient ?->UnknownFINAL REPORT CLINICAL INDICATION: Support lines. Comparison: 02/11/2018 The cardiomediastinal contours are stable. Left greater than right parenchymal and left pleural opacities are unchanged. There is no pneumothorax. Support lines are stable. Signed: Abel Schwartz MDReport Verified Date/Time: 02/12/2018 04:08:41 Reading Location: [address] Reading Room TIC FUNCTION [id number] 03:59:00* Test Item Value Reference Range Comments TOTAL PROTEIN (BEAKER) (test arlk=079) 6.1 gm/dL 6.0-8.3 ALBUMIN (BEAKER) (test qgee=9002) 3.5 g/dL 3.5-5.0 BILIRUBIN TOTAL (BEAKER) (test bqpf=569) 4.7 mg/dL 0.2-1.2 BILIRUBIN DIRECT (BEAKER) (test jacg=846) 3.1 mg/dL 0.1-0.5 ALKALINE PHOSPHATASE (BEAKER) (test pkxg=989) 182 U/L 40-150 AST (SGOT) (BEAKER) (test vono=798) 67 U/L 5-34 ALT (SGPT) (BEAKER) (test bvcf=777) 27 U/L 6-55 Specimen slightly [id number] 03:48:00* Test Item Value Reference Range Comments MAGNESIUM (BEAKER) (test ldjm=779) 3.6 mg/dL 1.6-2.6 BASIC METABOLIC [id number] 03:48:00* Test Item Value Reference Range Comments SODIUM (BEAKER) (test feig=212) 143 meq/L 136-145 POTASSIUM (BEAKER) (test ltln=641) 4.6 meq/L 3.5-5.1 CHLORIDE (BEAKER) (test eaji=929) 99 meq/L 98-107 CO2 (BEAKER) (test enzh=189) 31 meq/L 22-29 BLOOD UREA NITROGEN (BEAKER) (test cuob=004) 50 mg/dL 7-21 CREATININE (BEAKER) (test hawi=282) 1.23 mg/dL 0.57-1.25 GLUCOSE RANDOM (BEAKER) (test jrtm=232) 172 mg/dL 70-105 CALCIUM (BEAKER) (test yccx=794) 9.3 mg/dL 8.4-10.2 EGFR (BEAKER) (test jqez=3815) 46 mL/min/1.73 sq m ESTIMATED GFR IS NOT ACCURATE CREATININE CLEARANCE IN PREDICTING GLOMERULAR FILTRATION RATE. ESTIMATED GFR IS NOT APPLICABLE FOR DIALYSIS PATIENTS. Specimen slightly ictericLACTATE DEHYDROGENASE (LDH)2018-02-12 03:48:00* Test Item Value Reference Range Comments LACTATE DEHYDROGENASE (SARAHAKER) (test khln=910) 774 U/L 125-220 [id number] 03:42:00* Test Item Value Reference Range Comments D-DIMER QUANTITATIVE (SARAHAKER) (test enmi=888) 8.39 MG/L FEU <0.50 Intended Use: The D-Dimer Assay can be used to aid in the diagnosis of Deep Vein Thrombosis (DVT) and Pulmonary Embolism Disease (PED).In patients with low pre- test probability, various studies concerning STA Liatest D-dimer test have repor emily that with a cutoff value of 0.50 MG/L FEU, the Negative Predictive Value (ELEVATED WORK PLATFORM OPERATOR V) regarding the exclusion of thrombosis is within 95-100% range.LACTIC ACID, ARTERIAL, WHOLE [id number] 03:40:00* Test Item Value Reference Range Comments LACTATE BLOOD ARTERIAL (2) (SARAHAKER) (test qcge=9024) 1.3 mmol/L 0.5-2.2 Effective 03/10/2016: Units/Reference Range ChangeNew: 0.5-2.2 mmol/L Previous: 5 -20 mg/dLSpecimen slightly ictericHEPARIN ASSAY - [id number] 03:38:00* Test Item Value Reference Range Comments UNFRACTIONATED HEPARIN-ANTI 10A (SARAHAKER) (test abes=0138) 0.29 u/ml 0.30-0.70 Recommendations for Monitoring Unfractionated Heparin Therapeutic Range: 0.3-0. 7 u/mL with continuous IV [id number] 03:36:00* Test Item Value Reference Range Comments PARTIAL THROMBOPLASTIN TIME (BEAKER) (test bqes=462) 67.7 seconds 22.5-36.0 PROTHROMBIN TIME/[id number] 03:35:00* Test Item Value Reference Range Comments PROTIME (BEAKER) (test oxxv=044) 16.1 seconds 11.7-14.7 INR (BEAKER) (test gjey=619) 1.3 <=5.9 RECOMMENDED COUMADIN/WARFARIN INR THERAPY RANGESSTANDARD DOSE: 2.0 - 3.0 Inclu connie: PROPHYLAXIS for venous thrombosis, systemic embolization; TREATMENT for lupis ous thrombosis and/or pulmonary embolus.HIGH RISK: Target INR is 2.5-3.5 for pat ients with mechanical heart valves.[id number] 03:35:00* Test Item Value Reference Range Comments FIBRINOGEN LEVEL (BEAKER) (test rqvg=537) 585 mg/dl 225-434 CBC (HEMOGRAM ONLY)2018-02-12 03:24:00* Test Item Value Reference Range Comments WHITE BLOOD CELL COUNT (BEAKER) (test shji=975) 19.7 K/ L 3.5-10.5 RED BLOOD CELL COUNT (BEAKER) (test pplk=884) 2.61 M/ L 3.93-5.22 HEMOGLOBIN (BEAKER) (test ejtz=397) 7.7 GM/DL 11.2-15.7 HEMATOCRIT (BEAKER) (test qlah=798) 24.5 % 34.1-44.9 MEAN CORPUSCULAR VOLUME (BEAKER) (test rssj=407) 93.9 fL 79.4-94.8 MEAN CORPUSCULAR HEMOGLOBIN (BEAKER) (test sksy=299) 29.5 pg 25.6-32.2 MEAN CORPUSCULAR HEMOGLOBIN CONC (BEAKER) (test jvvs=845) 31.4 GM/DL 32.2-35.5 RED CELL DISTRIBUTION WIDTH (BEAKER) (test xqqg=197) 17.7 % 11.7-14.4 PLATELET COUNT (BEAKER) (test xazn=250) 182 K/CU MM 150-450 MEAN PLATELET VOLUME (BEAKER) (test tprw=761) 11.0 fL 9.4-12.3 NUCLEATED RED BLOOD CELLS (BEAKER) (test cavr=625) 3 /100 WBC 0-0 CALCIUM, [id number] 03:16:00* Test Item Value Reference Range Comments CALCIUM IONIZED (BEAKER) (test wqtd=431) 1.13 mmol/L 1.12-1.27 PH, BLOOD (BEAKER) (test tnra=1521) 7.38 BLOOD GAS, [id number] 03:15:00* Test Item Value Reference Range Comments PH ARTERIAL (BEAKER) (test bzep=290) 7.47 7.35-7.45 PCO2 ARTERIAL (BEAKER) (test uolm=584) 46 mmHg 35-45 PO2 ARTERIAL (BEAKER) (test txoo=511) 84 mmHg 80-90 O2 SATURATION ARTERIAL (BEAKER) (test rnil=786) 96.8 % 96.0-97.0 HCO3 ARTERIAL (BEAKER) (test qwdx=258) 32 mmol/L 21-29 BASE EXCESS ARTERIAL (BEAKER) (test wgbv=125) 7.5 mmol/L -2.0-3.0 PATIENT TEMPERATURE (BEAKER) (test necu=8019) 36.9 C FIO2 (BEAKER) (test bouy=5574) 65.0 % GLUCOSE-STAT [id number] 03:15:00* Test Item Value Reference Range Comments GLUCOSE RANDOM (BEAKER) (test hngm=257) 163 mg/dL 70-110 SODIUM NA-STAT [id number] 03:14:00* Test Item Value Reference Range Comments SODIUM (BEAKER) (test mupp=683) 137 meq/L 135-148 POTASSIUM-STAT [id number] 03:14:00* Test Item Value Reference Range Comments POTASSIUM (BEAKER) (test famy=911) 4.3 meq/L 3.6-5.5 OXYGEN SATURATION, [id number] 03:14:00* Test Item Value Reference Range Comments O2 SATURATION (MEASURED) (BEAKER) (test zpyu=7468) 42.5 % THROMBOELASTOGRAPH (TEG)2018-02-11 23:27:00* Test Item Value Reference Range Comments TEG ACTIVATED CLOTTING TIME (BEAKER) (test exsh=2401) 23.3 minutes 4.0-7.0 TEG FIBRINOGEN ACTIVITY (BEAKER) (test jmuu=3627) 13.8 degrees 61.0-73.0 [address]T. AGGREGATION (BEAKER) (test cijs=1222) 20.5 MM 55.0-65.0 TEG FIBRINOLYSIS (BEAKER) (test ptfq=1166) 1.0 % 0.0-5.0 TGH ACTIVATED CLOTTING TIME (BEAKER) (test boor=1958) 8.2 minutes 4.0-7.0 TGH FIBRINOGEN ACTIVITY (BEAKER) (test aioe=0376) 69.5 degrees 61.0-73.0 TGH PLT. AGGREGATION (BEAKER) (test bmnt=0193) 59.0 MM 55.0-65.0 TGH FIBRINOLYSIS (BEAKER) (test ormw=2812) 0.2 % 0.0-5.0 SODIUM NA-STAT [id number] 21:50:00* Test Item Value Reference Range Comments SODIUM (BEAKER) (test wygi=617) 140 meq/L 135-148 POTASSIUM-STAT [id number] 21:50:00* Test Item Value Reference Range Comments POTASSIUM (BEAKER) (test vedh=896) 3.6 meq/L 3.6-5.5 CALCIUM, [id number] 21:50:00* Test Item Value Reference Range Comments CALCIUM IONIZED (BEAKER) (test nhdc=751) 1.06 mmol/L 1.12-1.27 PH, BLOOD (BEAKER) (test njfd=5432) 7.50 BLOOD GAS, [id number] 21:50:00* Test Item Value Reference Range Comments PH ARTERIAL (BEAKER) (test pyfo=575) 7.50 7.35-7.45 PCO2 ARTERIAL (BEAKER) (test sbdp=926) 38 mmHg 35-45 PO2 ARTERIAL (BEAKER) (test zdii=116) 138 mmHg 80-90 O2 SATURATION ARTERIAL (BEAKER) (test gtej=689) 99.0 % 96.0-97.0 HCO3 ARTERIAL (BEAKER) (test elfz=996) 29 mmol/L 21-29 BASE EXCESS ARTERIAL (BEAKER) (test lqro=747) 5.4 mmol/L -2.0-3.0 PATIENT TEMPERATURE (BEAKER) (test rigt=7014) 36.3 C FIO2 (BEAKER) (test thwj=6066) 65.0 % GLUCOSE-STAT [id number] 21:50:00* Test Item Value Reference Range Comments GLUCOSE RANDOM (BEAKER) (test kdsm=572) 158 mg/dL 70-110 HGB/HCT (H&H) - STAT [id number] 21:50:00* Test Item Value Reference Range Comments HEMOGLOBIN (BEAKER) (test maqj=275) 8.1 g/dL 12.0-15.0 HEMATOCRIT (BEAKER) (test mkzo=611) 24.0 % 36.0-45.0 [id number] 15:32:00* Test Item Value Reference Range Comments POTASSIUM (BEAKER) (test kjag=142) 4.4 meq/L 3.5-5.1 Check Serum Potassium level 2 hours after oral potassium replacement completed o r 30 min after intravenous potassium replacement.[id number] 15:32:00* Test Item Value Reference Range Comments MAGNESIUM (BEAKER) (test ncvv=783) 2.4 mg/dL 1.6-2.6 Check Serum Potassium level 2 hours after oral potassium replacement completed o r 30 min after intravenous potassium replacement.BLOOD GAS, [id number] 15:18:00* Test Item Value Reference Range Comments PH ARTERIAL (BEAKER) (test eogl=671) 7.43 7.35-7.45 PCO2 ARTERIAL (BEAKER) (test opap=535) 48 mmHg 35-45 PO2 ARTERIAL (BEAKER) (test womk=023) 58 mmHg 80-90 O2 SATURATION ARTERIAL (BEAKER) (test fxhh=701) 91.4 % 96.0-97.0 HCO3 ARTERIAL (BEAKER) (test wneh=409) 32 mmol/L 21-29 BASE EXCESS ARTERIAL (BEAKER) (test bbtt=601) 6.1 mmol/L -2.0-3.0 PATIENT TEMPERATURE (BEAKER) (test aebt=0217) 36.4 C FIO2 (BEAKER) (test bgxr=8576) 100.0 % GLUCOSE-STAT [id number] 15:18:00* Test Item Value Reference Range Comments GLUCOSE RANDOM (BEAKER) (test zkgl=184) 168 mg/dL 70-110 THROMBOELASTOGRAPH (TEG)2018-02-11 11:27:00* Test Item Value Reference Range Comments TEG ACTIVATED CLOTTING TIME (BEAKER) (test cgko=3878) 25.6 minutes 4.0-7.0 TEG FIBRINOGEN ACTIVITY (BEAKER) (test qbrr=1336) 25.4 degrees 61.0-73.0 TEG PLT. AGGREGATION (BEAKER) (test lsbx=1471) 62.9 MM 55.0-65.0 TEG FIBRINOLYSIS (BEAKER) (test nrzp=2872) 0.0 % 0.0-5.0 TGH ACTIVATED CLOTTING TIME (BEAKER) (test eegj=5913) 8.6 minutes 4.0-7.0 TGH FIBRINOGEN ACTIVITY (BEAKER) (test hwum=3845) 70.2 degrees 61.0-73.0 TGH PLT. AGGREGATION (BEAKER) (test ahlx=5283) 61.0 MM 55.0-65.0 TGH FIBRINOLYSIS (BEAKER) (test sccx=8105) 0.1 % 0.0-5.0 HEPARIN ASSAY - [id number] 10:25:00* Test Item Value Reference Range Comments UNFRACTIONATED HEPARIN-ANTI 10A (BEAKER) (test vnxu=6544) 0.11 u/ml 0.30-0.70 Recommendations for Monitoring Unfractionated Heparin Therapeutic Range: 0.3-0. 7 u/mL with continuous IV infusionANTITHROMBIN [id number] 10:25:00* Test Item Value Reference Range Comments ANTITHROMBIN III ACTIVITY (BEAKER) (test duxt=577) 59.0 % 80.0-120.0 [id number] 09:12:00* Test Item Value Reference Range Comments POTASSIUM (BEAKER) (test lzlg=287) 4.3 meq/L 3.5-5.1 Check Serum Potassium level 2 hours after oral potassium replacement completed o r 30 min after intravenous potassium replacement.[id number] 09:12:00* Test Item Value Reference Range Comments MAGNESIUM (BEAKER) (test vkoq=407) 2.0 mg/dL 1.6-2.6 Check Serum Potassium level 2 hours after oral potassium replacement completed o r 30 min after intravenous potassium replacement.[id number] 08:23:00* Test Item Value Reference Range Comments PARTIAL THROMBOPLASTIN TIME (BEAKER) (test smpy=842) 63.1 seconds 22.5-36.0 BLOOD GAS, [id number] 08:19:00* Test Item Value Reference Range Comments PH ARTERIAL (BEAKER) (test ecwo=737) 7.47 7.35-7.45 PCO2 ARTERIAL (BEAKER) (test imgj=307) 46 mmHg 35-45 PO2 ARTERIAL (BEAKER) (test rhfq=574) 81 mmHg 80-90 O2 SATURATION ARTERIAL (BEAKER) (test qkwj=074) 96.7 % 96.0-97.0 HCO3 ARTERIAL (BEAKER) (test rmfg=636) 33 mmol/L 21-29 BASE EXCESS ARTERIAL (BEAKER) (test wvhb=151) 8.0 mmol/L -2.0-3.0 PATIENT TEMPERATURE (BEAKER) (test iywh=3715) 36.4 C FIO2 (BEAKER) (test hukm=9539) 100.0 % GLUCOSE-STAT [id number] 08:19:00* Test Item Value Reference Range Comments GLUCOSE RANDOM (BEAKER) (test avai=642) 144 mg/dL 70-110 CALCIUM, [id number] 08:18:00* Test Item Value Reference Range Comments CALCIUM IONIZED (BEAKER) (test vjsm=053) 1.16 mmol/L 1.12-1.27 PH, BLOOD (BEAKER) (test dmzl=0929) 7.46 CBC (HEMOGRAM ONLY)2018-02-11 06:23:00* Test Item Value Reference Range Comments WHITE BLOOD CELL COUNT (BEAKER) (test zdor=502) 19.0 K/ L 3.5-10.5 RED BLOOD CELL COUNT (BEAKER) (test bliu=425) 2.62 M/ L 3.93-5.22 HEMOGLOBIN (BEAKER) (test efky=736) 7.6 GM/DL 11.2-15.7 HEMATOCRIT (BEAKER) (test oahd=850) 24.4 % 34.1-44.9 MEAN CORPUSCULAR VOLUME (BEAKER) (test mplo=085) 93.1 fL 79.4-94.8 MEAN CORPUSCULAR HEMOGLOBIN (BEAKER) (test pnex=276) 29.0 pg 25.6-32.2 MEAN CORPUSCULAR HEMOGLOBIN CONC (BEAKER) (test nkxr=836) 31.1 GM/DL 32.2-35.5 RED CELL DISTRIBUTION WIDTH (BEAKER) (test qrpv=729) 17.7 % 11.7-14.4 PLATELET COUNT (BEAKER) (test vdlq=553) 129 K/CU MM 150-450 MEAN PLATELET VOLUME (BEAKER) (test nfaq=559) 11.0 fL 9.4-12.3 NUCLEATED RED BLOOD CELLS (BEAKER) (test enkq=013) 2 /100 WBC 0-0 OXYGEN SATURATION, [id number] 06:09:00* Test Item Value Reference Range Comments O2 SATURATION (MEASURED) (BEAKER) (test uqdn=6212) 49.1 % BLOOD GAS, [id number] 06:05:00* Test Item Value Reference Range Comments PH ARTERIAL (BEAKER) (test ould=262) 7.45 7.35-7.45 PCO2 ARTERIAL (BEAKER) (test gdhg=815) 45 mm Hg 35-45 PO2 ARTERIAL (BEAKER) (test deyd=768) 98 mm Hg 80-90 O2 SATURATION ARTERIAL (BEAKER) (test iknf=137) 97.7 % 96.0-97.0 HCO3 ARTERIAL (BEAKER) (test pkmc=822) 31 mmol/L 21-29 BASE EXCESS ARTERIAL (BEAKER) (test qmqg=287) 6.1 mmol/L -2.0-3.0 PATIENT TEMPERATURE (BEAKER) (test rpxb=8858) 37.1 FIO2 (BEAKER) (test rhoe=7204) 80 GLUCOSE-STAT [id number] 06:03:00* Test Item Value Reference Range Comments GLUCOSE RANDOM (BEAKER) (test ddqf=049) 138 mg/dL 70-110 POTASSIUM-STAT [id number] 06:03:00* Test Item Value Reference Range Comments POTASSIUM (BEAKER) (test eman=483) 4.2 meq/L 3.6-5.5 SODIUM NA-STAT [id number] 06:03:00* Test Item Value Reference Range Comments SODIUM (BEAKER) (test dhyf=409) 140 meq/L 135-148 THROMBOELASTOGRAPH (TEG)2018-02-11 05:33:00* Test Item Value Reference Range Comments TEG ACTIVATED CLOTTING TIME (BEAKER) (test jdgk=8149) 19.5 minutes 4.0-7.0 TEG FIBRINOGEN ACTIVITY (BEAKER) (test fjui=1496) 35.7 degrees 61.0-73.0 TEG PLT. AGGREGATION (BEAKER) (test noyb=3087) 64.0 MM 55.0-65.0 TEG FIBRINOLYSIS (BEAKER) (test ctnp=7778) 0.0 % 0.0-5.0 TGH ACTIVATED CLOTTING TIME (BEAKER) (test vxtt=2703) 6.2 minutes 4.0-7.0 TGH FIBRINOGEN ACTIVITY (BEAKER) (test ipiq=6070) 72.7 degrees 61.0-73.0 TGH PLT. AGGREGATION (BEAKER) (test ukeq=9661) 61.2 MM 55.0-65.0 TGH FIBRINOLYSIS (BEAKER) (test pfwg=1655) 1.4 % 0.0-5.0 RAD, CHEST, 1 VIEW, NON [id number] 04:54:00Reason for exam:-> ECMO/intubatedShould this be performed at the bedside?->YesIs the patient ?->UnknownFINAL REPORT RAD, CHEST, 1 VIEW, NON DEPT INDICATION: ECMO/intubated COMPARISON: Prior day's exam FINDINGS: Portable frontal view of the chest. IMPRESSION: Support Lines: Left approach [employer] [place] catheter is either retracted or replaced by small caliber central venous catheter which terminates at the junction of the brachiocephalic vein and superior vena cava. Remaining support hardware is stable. Lungs and pleura: Dense airspace disease again noted on the left. There is mild but increasing interstitial congestion on the right. A small left effusion is present. No pneumothorax.Heart and mediastinum: Stable contours. Stable surgical changes.Additional findings: None. Signed: JR Lucas Robert MDReport Verified Date/Time: 02/11/2018 04:54:25 Reading Location: [facility] C013Y CT Body Reading Room D GAS, [id number] 04:04:00* Test Item Value Reference Range Comments PH ARTERIAL (BEAKER) (test uyik=313) 7.45 7.35-7.45 PCO2 ARTERIAL (BEAKER) (test wjyz=634) 44 mmHg 35-45 PO2 ARTERIAL (BEAKER) (test miho=266) 543 mmHg 80-90 O2 SATURATION ARTERIAL (BEAKER) (test uhyz=449) 99.9 % 96.0-97.0 HCO3 ARTERIAL (BEAKER) (test tcsz=263) 30 mmol/L 21-29 BASE EXCESS ARTERIAL (BEAKER) (test kpfk=040) 5.4 mmol/L -2.0-3.0 PATIENT TEMPERATURE (BEAKER) (test puxk=6885) 36.4 C FIO2 (BEAKER) (test eahi=5911) 100.0 % BLOOD GAS, [id number] 03:56:00* Test Item Value Reference Range Comments PH ARTERIAL (BEAKER) (test vgfg=674) 7.48 7.35-7.45 PCO2 ARTERIAL (BEAKER) (test aqtx=416) 43 mmHg 35-45 PO2 ARTERIAL (BEAKER) (test envd=520) 76 mmHg 80-90 O2 SATURATION ARTERIAL (BEAKER) (test xsfl=869) 96.1 % 96.0-97.0 HCO3 ARTERIAL (BEAKER) (test feov=929) 31 mmol/L 21-29 BASE EXCESS ARTERIAL (BEAKER) (test rhqe=035) 6.6 mmol/L -2.0-3.0 PATIENT TEMPERATURE (BEAKER) (test keal=4621) 36.8 C FIO2 (BEAKER) (test wqyi=1499) 80.0 % [id number] 03:31:00* Test Item Value Reference Range Comments MAGNESIUM (BEAKER) (test geko=723) 2.2 mg/dL 1.6-2.6 BASIC METABOLIC [id number] 03:31:00* Test Item Value Reference Range Comments SODIUM (BEAKER) (test ojko=345) 147 meq/L 136-145 POTASSIUM (BEAKER) (test ubzy=058) 4.6 meq/L 3.5-5.1 CHLORIDE (BEAKER) (test rvqu=673) 106 meq/L 98-107 CO2 (BEAKER) (test ncwd=069) 28 meq/L 22-29 BLOOD UREA NITROGEN (BEAKER) (test fbga=904) 50 mg/dL 7-21 CREATININE (BEAKER) (test uweu=286) 1.30 mg/dL 0.57-1.25 GLUCOSE RANDOM (BEAKER) (test ymrb=941) 156 mg/dL 70-105 CALCIUM (BEAKER) (test vwir=698) 9.6 mg/dL 8.4-10.2 EGFR (BEAKER) (test ossd=1493) 43 mL/min/1.73 sq m ESTIMATED GFR IS NOT ACCURATE CREATININE CLEARANCE IN PREDICTING GLOMERULAR FILTRATION RATE. ESTIMATED GFR IS NOT APPLICABLE FOR DIALYSIS PATIENTS. Specimen slightly ictericHEPATIC FUNCTION [id number] 03:31:00* Test Item Value Reference Range Comments TOTAL PROTEIN (BEAKER) (test ytqw=744) 5.4 gm/dL 6.0-8.3 ALBUMIN (BEAKER) (test tsqf=9484) 3.2 g/dL 3.5-5.0 BILIRUBIN TOTAL (BEAKER) (test qnop=699) 4.7 mg/dL 0.2-1.2 BILIRUBIN DIRECT (BEAKER) (test mwpd=954) 3.1 mg/dL 0.1-0.5 ALKALINE PHOSPHATASE (BEAKER) (test uigl=083) 149 U/L 40-150 AST (SGOT) (BEAKER) (test eirc=287) 69 U/L 5-34 ALT (SGPT) (BEAKER) (test srls=006) 33 U/L 6-55 Specimen slightly ictericLACTATE DEHYDROGENASE (LDH)2018-02-11 03:31:00* Test Item Value Reference Range Comments LACTATE DEHYDROGENASE (BEAKER) (test jcmo=610) 744 U/L 125-220 [id number] 03:30:00* Test Item Value Reference Range Comments D-DIMER QUANTITATIVE (BEAKER) (test zyjx=184) 7.54 MG/L FEU <0.50 Intended Use: The D-Dimer Assay can be used to aid in the diagnosis of Deep Vein Thrombosis (DVT) and Pulmonary Embolism Disease (PED).In patients with low pre- test probability, various studies concerning STA Liatest D-dimer test have repor emily that with a cutoff value of 0.50 MG/L FEU, the Negative Predictive Value (ELEVATED WORK PLATFORM OPERATOR V) regarding the exclusion of thrombosis is within 95-100% range.LACTIC ACID, ARTERIAL, WHOLE [id number] 03:25:00* Test Item Value Reference Range Comments LACTATE BLOOD ARTERIAL (2) (BEAKER) (test rjuw=3975) 1.8 mmol/L 0.5-2.2 Effective 03/10/2016: Units/Reference Range ChangeNew: 0.5-2.2 mmol/L Previous: 5 -20 mg/dLSpecimen slightly [id number] 03:21:00* Test Item Value Reference Range Comments PARTIAL THROMBOPLASTIN TIME (BEAKER) (test goey=620) 62.3 seconds 22.5-36.0 [id number] 03:20:00* Test Item Value Reference Range Comments FIBRINOGEN LEVEL (BEAKER) (test scqs=339) 525 mg/dl 225-434 PROTHROMBIN TIME/[id number] 03:19:00* Test Item Value Reference Range Comments PROTIME (BEAKER) (test fyut=265) 16.4 seconds 11.7-14.7 INR (BEAKER) (test iakd=692) 1.3 <=5.9 RECOMMENDED COUMADIN/WARFARIN INR THERAPY RANGESSTANDARD DOSE: 2.0 - 3.0 Inclu connie: PROPHYLAXIS for venous thrombosis, systemic embolization; TREATMENT for lupis ous thrombosis and/or pulmonary embolus.HIGH RISK: Target INR is 2.5-3.5 for pat ients with mechanical heart valves.CBC (HEMOGRAM ONLY)2018-02-11 03:12:00* Test Item Value Reference Range Comments WHITE BLOOD CELL COUNT (BEAKER) (test bpbm=727) 20.0 K/ L 3.5-10.5 RED BLOOD CELL COUNT (BEAKER) (test nyih=493) 2.61 M/ L 3.93-5.22 HEMOGLOBIN (BEAKER) (test sobk=644) 7.8 GM/DL 11.2-15.7 HEMATOCRIT (BEAKER) (test gyhj=111) 24.5 % 34.1-44.9 MEAN CORPUSCULAR VOLUME (BEAKER) (test srll=182) 93.9 fL 79.4-94.8 MEAN CORPUSCULAR HEMOGLOBIN (BEAKER) (test powh=411) 29.9 pg 25.6-32.2 MEAN CORPUSCULAR HEMOGLOBIN CONC (BEAKER) (test hpeg=151) 31.8 GM/DL 32.2-35.5 RED CELL DISTRIBUTION WIDTH (BEAKER) (test qemb=020) 17.6 % 11.7-14.4 PLATELET COUNT (BEAKER) (test edoy=917) 124 K/CU MM 150-450 MEAN PLATELET VOLUME (BEAKER) (test euex=529) 11.2 fL 9.4-12.3 NUCLEATED RED BLOOD CELLS (BEAKER) (test llin=056) 3 /100 WBC 0-0 CALCIUM, [id number] 03:09:00* Test Item Value Reference Range Comments CALCIUM IONIZED (BEAKER) (test cgym=440) 1.17 mmol/L 1.12-1.27 PH, BLOOD (BEAKER) (test zmmx=0772) 7.46 BLOOD GAS, [id number] 03:08:00* Test Item Value Reference Range Comments PH ARTERIAL (BEAKER) (test ivcj=620) 7.46 7.35-7.45 PCO2 ARTERIAL (BEAKER) (test bupg=418) 45 mmHg 35-45 PO2 ARTERIAL (BEAKER) (test htpm=605) 59 mmHg 80-90 O2 SATURATION ARTERIAL (BEAKER) (test mftt=521) 91.9 % 96.0-97.0 HCO3 ARTERIAL (BEAKER) (test azih=290) 31 mmol/L 21-29 BASE EXCESS ARTERIAL (BEAKER) (test aaoa=960) 6.2 mmol/L -2.0-3.0 PATIENT TEMPERATURE (BEAKER) (test ahhm=8823) 36.8 C FIO2 (BEAKER) (test uovu=0083) 60.0 % OXYGEN SATURATION, [id number] 03:06:00* Test Item Value Reference Range Comments O2 SATURATION (MEASURED) (BEAKER) (test qlmy=0411) 44.4 % [id number] 21:32:00* Test Item Value Reference Range Comments PARTIAL THROMBOPLASTIN TIME (BEAKER) (test lvtn=897) 63.9 seconds 22.5-36.0 BLOOD GAS, [id number] 21:19:00* Test Item Value Reference Range Comments PH ARTERIAL (BEAKER) (test ikoz=963) 7.46 7.35-7.45 PCO2 ARTERIAL (BEAKER) (test rqrw=164) 45 mmHg 35-45 PO2 ARTERIAL (BEAKER) (test dbnh=219) 122 mmHg 80-90 O2 SATURATION ARTERIAL (BEAKER) (test ofbw=832) 98.6 % 96.0-97.0 HCO3 ARTERIAL (BEAKER) (test uzna=954) 31 mmol/L 21-29 BASE EXCESS ARTERIAL (BEAKER) (test qxcb=623) 6.7 mmol/L -2.0-3.0 PATIENT TEMPERATURE (BEAKER) (test uevk=0231) 36.8 C FIO2 (BEAKER) (test idix=4665) 60.0 % GLUCOSE-STAT [id number] 21:19:00* Test Item Value Reference Range Comments GLUCOSE RANDOM (BEAKER) (test druq=216) 176 mg/dL 70-110 HGB/HCT (H&H) - STAT [id number] 21:19:00* Test Item Value Reference Range Comments HEMOGLOBIN (BEAKER) (test tvur=629) 8.8 g/dL 12.0-15.0 HEMATOCRIT (BEAKER) (test xijd=673) 26.0 % 36.0-45.0 CALCIUM, [id number] 21:19:00* Test Item Value Reference Range Comments CALCIUM IONIZED (BEAKER) (test huse=701) 1.03 mmol/L 1.12-1.27 PH, BLOOD (BEAKER) (test erba=6088) 7.46 SODIUM NA-STAT [id number] 21:18:00* Test Item Value Reference Range Comments SODIUM (BEAKER) (test jtlk=080) 144 meq/L 135-148 POTASSIUM-STAT [id number] 21:18:00* Test Item Value Reference Range Comments POTASSIUM (BEAKER) (test pvqj=582) 3.7 meq/L 3.6-5.5 THROMBOELASTOGRAPH (TEG)2018-02-10 18:52:00* Test Item Value Reference Range Comments TEG ACTIVATED CLOTTING TIME (BEAKER) (test ayib=3368) 23.2 minutes 4.0-7.0 TEG FIBRINOGEN ACTIVITY (BEAKER) (test bfry=2243) 25.7 degrees 61.0-73.0 [address]G PLT. AGGREGATION (BEAKER) (test ramg=9329) 62.7 MM 55.0-65.0 TEG FIBRINOLYSIS (BEAKER) (test axto=9515) 0.0 % 0.0-5.0 TGH ACTIVATED CLOTTING TIME (BEAKER) (test yfgc=5052) 12.8 minutes 4.0-7.0 TGH FIBRINOGEN ACTIVITY (BEAKER) (test rbpy=8243) 52.8 degrees 61.0-73.0 TGH PLT. AGGREGATION (BEAKER) (test snoh=8834) 62.6 MM 55.0-65.0 TGH FIBRINOLYSIS (BEAKER) (test nikc=2353) 0.0 % 0.0-5.0 BASIC METABOLIC [id number] 17:30:00* Test Item Value Reference Range Comments SODIUM (BEAKER) (test prjc=943) 149 meq/L 136-145 POTASSIUM (BEAKER) (test ghgk=405) 4.4 meq/L 3.5-5.1 CHLORIDE (BEAKER) (test daiw=471) 105 meq/L 98-107 CO2 (BEAKER) (test esvr=122) 31 meq/L 22-29 BLOOD UREA NITROGEN (BEAKER) (test khng=873) 50 mg/dL 7-21 CREATININE (BEAKER) (test kezu=793) 1.42 mg/dL 0.57-1.25 GLUCOSE RANDOM (BEAKER) (test zbtq=632) 136 mg/dL 70-105 CALCIUM (BEAKER) (test faew=131) 8.6 mg/dL 8.4-10.2 EGFR (BEAKER) (test yzln=1970) 39 mL/min/1.73 sq m ESTIMATED GFR IS NOT ACCURATE CREATININE CLEARANCE IN PREDICTING GLOMERULAR FILTRATION RATE. ESTIMATED GFR IS NOT APPLICABLE FOR DIALYSIS PATIENTS. Specimen slightly ictericBLOOD GAS, [id number] 16:22:00* Test Item Value Reference Range Comments PH ARTERIAL (BEAKER) (test hmsv=904) 7.46 7.35-7.45 PCO2 ARTERIAL (BEAKER) (test kznj=735) 45 mmHg 35-45 PO2 ARTERIAL (BEAKER) (test qzpr=415) 84 mmHg 80-90 O2 SATURATION ARTERIAL (BEAKER) (test btuk=750) 96.8 % 96.0-97.0 HCO3 ARTERIAL (BEAKER) (test ryxp=972) 31 mmol/L 21-29 BASE EXCESS ARTERIAL (BEAKER) (test jmly=683) 6.6 mmol/L -2.0-3.0 PATIENT TEMPERATURE (BEAKER) (test iaas=4155) 36.7 C FIO2 (BEAKER) (test zjmp=4210) 60.0 % [id number] 12:38:00* Test Item Value Reference Range Comments PARTIAL THROMBOPLASTIN TIME (BEAKER) (test wpjc=587) 45.4 seconds 22.5-36.0 BLOOD GAS, [id number] 12:15:00* Test Item Value Reference Range Comments PH ARTERIAL (BEAKER) (test hqph=163) 7.46 7.35-7.45 PCO2 ARTERIAL (BEAKER) (test xzvg=387) 45 mmHg 35-45 PO2 ARTERIAL (BEAKER) (test liqf=988) 59 mmHg 80-90 O2 SATURATION ARTERIAL (BEAKER) (test nqpa=106) 91.7 % 96.0-97.0 HCO3 ARTERIAL (BEAKER) (test zgek=036) 31 mmol/L 21-29 BASE EXCESS ARTERIAL (BEAKER) (test suhe=729) 6.3 mmol/L -2.0-3.0 PATIENT TEMPERATURE (BEAKER) (test ehsn=9911) 37.0 C FIO2 (BEAKER) (test chqv=8089) 100.0 % ANTITHROMBIN [id number] 11:13:00* Test Item Value Reference Range Comments ANTITHROMBIN III ACTIVITY (BEAKER) (test itpe=698) 83.0 % 80.0-120.0 THROMBOELASTOGRAPH (TEG)2018-02-10 10:54:00* Test Item Value Reference Range Comments TEG ACTIVATED CLOTTING TIME (BEAKER) (test lsrg=4187) 21.7 minutes 4.0-7.0 TEG FIBRINOGEN ACTIVITY (BEAKER) (test aptb=9607) 26.1 degrees 61.0-73.0 TEG PLT. AGGREGATION (BEAKER) (test lfxx=1138) 44.5 MM 55.0-65.0 TEG FIBRINOLYSIS (BEAKER) (test wnxn=8677) 0.0 % 0.0-5.0 T[facility] ACTIVATED CLOTTING TIME (BEAKER) (test xrrg=4092) 5.6 minutes 4.0-7.0 TGH FIBRINOGEN ACTIVITY (BEAKER) (test ocyy=0177) 71.2 degrees 61.0-73.0 TGH PLT. AGGREGATION (BEAKER) (test xlol=6122) 51.0 MM 55.0-65.0 TGH FIBRINOLYSIS (BEAKER) (test sdhy=2981) 0.0 % 0.0-5.0 HEPARIN ASSAY - [id number] 10:42:00* Test Item Value Reference Range Comments UNFRACTIONATED HEPARIN-ANTI 10A (BEAKER) (test mwdt=1524) 0.21 u/ml 0.30-0.70 Recommendations for Monitoring Unfractionated Heparin Therapeutic Range: 0.3-0. 7 u/mL with continuous IV infusionBRONCHIAL CULTURE + GRAM [id number] 10:39:00* Test Item Value Reference Range Comments CULTURE (BEAKER) (test hzvv=9721) <1+ Normal respiratory alan present GRAM STAIN RESULT (BEAKER) (test wdev=0645) 1+ WBCs GRAM STAIN RESULT (BEAKER) (test unip=05376) No organisms seen BLOOD GAS, [id number] 08:13:00* Test Item Value Reference Range Comments PH ARTERIAL (BEAKER) (test pxnp=843) 7.45 7.35-7.45 PCO2 ARTERIAL (BEAKER) (test lzcx=694) 47 mmHg 35-45 PO2 ARTERIAL (BEAKER) (test ermm=564) 125 mmHg 80-90 O2 SATURATION ARTERIAL (BEAKER) (test fmth=879) 98.6 % 96.0-97.0 HCO3 ARTERIAL (BEAKER) (test szbl=001) 32 mmol/L 21-29 BASE EXCESS ARTERIAL (BEAKER) (test prjd=864) 7.4 mmol/L -2.0-3.0 PATIENT TEMPERATURE (BEAKER) (test thyq=7074) 36.8 C FIO2 (BEAKER) (test oyto=5755) 60.0 % FIBRIN SOLUBLE [id number] 07:16:00* Test Item Value Reference Range Comments FIBRIN SOLUBLE MONOMER (BEAKER) (test oelx=4351) Negative THROMBOELASTOGRAPH (TEG)2018-02-10 05:24:00* Test Item Value Reference Range Comments TEG ACTIVATED CLOTTING TIME (BEAKER) (test xpmq=0118) minutes 4.0-7.0 No clot detected. TGH ACTIVATED CLOTTING TIME (BEAKER) (test bclo=8401) 9.1 minutes 4.0-7.0 TGH FIBRINOGEN ACTIVITY (BEAKER) (test erxa=1611) 64.3 degrees 61.0-73.0 TGH PLT. AGGREGATION (BEAKER) (test qhmo=7999) 55.2 MM 55.0-65.0 TGH FIBRINOLYSIS (BEAKER) (test eilm=9253) 0.0 % 0.0-5.0 BLOOD GAS, [id number] 05:15:00* Test Item Value Reference Range Comments PH ARTERIAL (BEAKER) (test ofaz=813) 7.41 7.35-7.45 PCO2 ARTERIAL (BEAKER) (test hkrv=606) 54 mmHg 35-45 PO2 ARTERIAL (BEAKER) (test mmgs=158) 394 mmHg 80-90 O2 SATURATION ARTERIAL (BEAKER) (test djsp=450) 99.8 % 96.0-97.0 HCO3 ARTERIAL (BEAKER) (test qnyh=047) 34 mmol/L 21-29 BASE EXCESS ARTERIAL (BEAKER) (test vxpi=676) 7.5 mmol/L -2.0-3.0 PATIENT TEMPERATURE (BEAKER) (test zpsu=3632) 36.5 C FIO2 (BEAKER) (test bfkj=9805) 100.0 % RAD, CHEST, 1 VIEW, NON [id number] 04:53:00Reason for exam:-> ECMO/intubatedShould this be performed at the bedside?->YesIs the patient ?->UnknownFINAL REPORT CLINICAL INDICATION: Support lines. Comparison: 02/09/2018 The cardiomediastinal contours are stable. Left-sided parenchymal and pleural opacities are similar to previous. There is no pneumothorax. Support lines are stable. Signed: Abel Schwartz [facility] Verified Date/Time: 02/10/2018 04:53:59 Reading Location: [address] Reading Room [id number] 04:12:00* Test Item Value Reference Range Comments MAGNESIUM (BEAKER) (test cepl=253) 2.3 mg/dL 1.6-2.6 BASIC METABOLIC [id number] 04:12:00* Test Item Value Reference Range Comments SODIUM (BEAKER) (test wzly=310) 147 meq/L 136-145 POTASSIUM (BEAKER) (test pyib=491) 4.8 meq/L 3.5-5.1 CHLORIDE (BEAKER) (test eefg=407) 104 meq/L 98-107 CO2 (BEAKER) (test qbuu=973) 29 meq/L 22-29 BLOOD UREA NITROGEN (BEAKER) (test gzpz=689) 43 mg/dL 7-21 CREATININE (BEAKER) (test mxov=724) 1.21 mg/dL 0.57-1.25 GLUCOSE RANDOM (BEAKER) (test gjvo=012) 141 mg/dL 70-105 CALCIUM (BEAKER) (test idoy=880) 8.8 mg/dL 8.4-10.2 EGFR (BEAKER) (test cnyp=3115) 47 mL/min/1.73 sq m ESTIMATED GFR IS NOT ACCURATE CREATININE CLEARANCE IN PREDICTING GLOMERULAR FILTRATION RATE. ESTIMATED GFR IS NOT APPLICABLE FOR DIALYSIS PATIENTS. Specimen moderately ictericHEPATIC FUNCTION [id number] 04:12:00* Test Item Value Reference Range Comments TOTAL PROTEIN (BEAKER) (test smae=050) 5.9 gm/dL 6.0-8.3 ALBUMIN (BEAKER) (test inyy=7533) 3.6 g/dL 3.5-5.0 BILIRUBIN TOTAL (BEAKER) (test kzsc=125) 5.1 mg/dL 0.2-1.2 BILIRUBIN DIRECT (BEAKER) (test pobc=739) 3.5 mg/dL 0.1-0.5 ALKALINE PHOSPHATASE (BEAKER) (test vpsz=221) 190 U/L 40-150 AST (SGOT) (BEAKER) (test ecnn=597) 54 U/L 5-34 ALT (SGPT) (BEAKER) (test mrvx=923) 49 U/L 6-55 Specimen moderately ictericLACTATE DEHYDROGENASE (LDH)2018-02-10 04:12:00* Test Item Value Reference Range Comments LACTATE DEHYDROGENASE (BEAKER) (test myhp=867) 778 U/L 125-220 [id number] 04:10:00* Test Item Value Reference Range Comments D-DIMER QUANTITATIVE (BEAKER) (test aked=193) 5.96 MG/L FEU <0.50 Intended Use: The D-Dimer Assay can be used to aid in the diagnosis of Deep Vein Thrombosis (DVT) and Pulmonary Embolism Disease (PED).In patients with low pre- test probability, various studies concerning STA Liatest D-dimer test have repor emily that with a cutoff value of 0.50 MG/L FEU, the Negative Predictive Value (ELEVATED WORK PLATFORM OPERATOR V) regarding the exclusion of thrombosis is within 95-100% range.OXYGEN SATURATION, [id number] 04:07:00* Test Item Value Reference Range Comments O2 SATURATION (MEASURED) (BEAKER) (test szvn=6411) 91.0 % LACTIC ACID, ARTERIAL, WHOLE [id number] 04:06:00* Test Item Value Reference Range Comments LACTATE BLOOD ARTERIAL (2) (BEAKER) (test ivuc=0810) 1.6 mmol/L 0.5-2.2 Effective 03/10/2016: Units/Reference Range ChangeNew: 0.5-2.2 mmol/L Previous: 5 -20 mg/dLSpecimen slightly ictericCBC (HEMOGRAM ONLY)2018-02-10 04:05:00* Test Item Value Reference Range Comments WHITE BLOOD CELL COUNT (BEAKER) (test wczg=871) 19.4 K/ L 3.5-10.5 RED BLOOD CELL COUNT (BEAKER) (test ussm=119) 2.98 M/ L 3.93-5.22 HEMOGLOBIN (BEAKER) (test vvbl=109) 8.7 GM/DL 11.2-15.7 HEMATOCRIT (BEAKER) (test iyag=491) 27.2 % 34.1-44.9 MEAN CORPUSCULAR VOLUME (BEAKER) (test ulzv=531) 91.3 fL 79.4-94.8 MEAN CORPUSCULAR HEMOGLOBIN (BEAKER) (test nzgg=215) 29.2 pg 25.6-32.2 MEAN CORPUSCULAR HEMOGLOBIN CONC (BEAKER) (test yuwm=742) 32.0 GM/DL 32.2-35.5 RED CELL DISTRIBUTION WIDTH (BEAKER) (test jogr=051) 16.9 % 11.7-14.4 PLATELET COUNT (BEAKER) (test orsy=275) 86 K/CU MM 150-450 MEAN PLATELET VOLUME (BEAKER) (test ivrc=921) 11.6 fL 9.4-12.3 NUCLEATED RED BLOOD CELLS (BEAKER) (test edoj=596) 3 /100 WBC 0-0 [id number] 04:03:00* Test Item Value Reference Range Comments PARTIAL THROMBOPLASTIN TIME (BEAKER) (test hzmq=938) 68.8 seconds 22.5-36.0 [id number] 04:02:00* Test Item Value Reference Range Comments FIBRINOGEN LEVEL (BEAKER) (test sudf=216) 504 mg/dl 225-434 PROTHROMBIN TIME/[id number] 04:00:00* Test Item Value Reference Range Comments PROTIME (BEAKER) (test jhxk=724) 16.0 seconds 11.7-14.7 INR (BEAKER) (test fnmf=593) 1.3 <=5.9 RECOMMENDED COUMADIN/WARFARIN INR THERAPY RANGESSTANDARD DOSE: 2.0 - 3.0 Inclu connie: PROPHYLAXIS for venous thrombosis, systemic embolization; TREATMENT for lupis ous thrombosis and/or pulmonary embolus.HIGH RISK: Target INR is 2.5-3.5 for pat ients with mechanical heart valves.CALCIUM, [id number] 03:55:00* Test Item Value Reference Range Comments CALCIUM IONIZED (BEAKER) (test ezdj=270) 1.09 mmol/L 1.12-1.27 PH, BLOOD (BEAKER) (test ukmo=1859) 7.46 BLOOD GAS, [id number] 03:54:00* Test Item Value Reference Range Comments PH ARTERIAL (BEAKER) (test yekn=513) 7.46 7.35-7.45 PCO2 ARTERIAL (BEAKER) (test rdba=787) 45 mmHg 35-45 PO2 ARTERIAL (BEAKER) (test zcku=440) 114 mmHg 80-90 O2 SATURATION ARTERIAL (BEAKER) (test zkuv=610) 98.4 % 96.0-97.0 HCO3 ARTERIAL (BEAKER) (test zafh=420) 32 mmol/L 21-29 BASE EXCESS ARTERIAL (BEAKER) (test qpci=759) 6.9 mmol/L -2.0-3.0 PATIENT TEMPERATURE (BEAKER) (test ixue=9053) 36.8 C FIO2 (BEAKER) (test zoxd=4332) 40.0 % GLUCOSE-STAT [id number] 03:54:00* Test Item Value Reference Range Comments GLUCOSE RANDOM (BEAKER) (test dqfv=715) 131 mg/dL 70-110 POTASSIUM-STAT [id number] 03:52:00* Test Item Value Reference Range Comments POTASSIUM (BEAKER) (test nhwp=120) 4.6 meq/L 3.6-5.5 THROMBOELASTOGRAPH (TEG)2018-02-10 02:20:00* Test Item Value Reference Range Comments TEG ACTIVATED CLOTTING TIME (BEAKER) (test akgt=3217) 45.2 minutes 4.0-7.0 TEG FIBRINOGEN ACTIVITY (BEAKER) (test nxmi=3273) 6.0 degrees 61.0-73.0 TEG PLT. AGGREGATION (BEAKER) (test pehm=9380) 13.4 MM 55.0-65.0 TEG FIBRINOLYSIS (BEAKER) (test wbbi=9594) 0.0 % 0.0-5.0 TGH ACTIVATED CLOTTING TIME (BEAKER) (test xxbo=8382) 7.6 minutes 4.0-7.0 TGH FIBRINOGEN ACTIVITY (BEAKER) (test jlur=4622) 61.3 degrees 61.0-73.0 TGH PLT. AGGREGATION (BEAKER) (test cgkg=6143) 59.8 MM 55.0-65.0 TGH FIBRINOLYSIS (BEAKER) (test xtmo=9448) 0.0 % 0.0-5.0 [id number] 00:07:00* Test Item Value Reference Range Comments PARTIAL THROMBOPLASTIN TIME (BEAKER) (test gfeq=082) 60.3 seconds 22.5-36.0 BLOOD GAS, [id number] 23:48:00* Test Item Value Reference Range Comments PH ARTERIAL (BEAKER) (test omje=732) 7.47 7.35-7.45 PCO2 ARTERIAL (BEAKER) (test jtpm=022) 44 mmHg 35-45 PO2 ARTERIAL (BEAKER) (test cctf=160) 116 mmHg 80-90 O2 SATURATION ARTERIAL (BEAKER) (test flmj=997) 98.4 % 96.0-97.0 HCO3 ARTERIAL (BEAKER) (test hcva=359) 32 mmol/L 21-29 BASE EXCESS ARTERIAL (BEAKER) (test dcqf=877) 7.1 mmol/L -2.0-3.0 PATIENT TEMPERATURE (BEAKER) (test mbby=2128) 36.8 C FIO2 (BEAKER) (test lgyg=9036) 40.0 % GLUCOSE-STAT [id number] 23:48:00* Test Item Value Reference Range Comments GLUCOSE RANDOM (BEAKER) (test jvjs=532) 140 mg/dL 70-110 POTASSIUM-STAT [id number] 23:45:00* Test Item Value Reference Range Comments POTASSIUM (BEAKER) (test ptih=779) 3.6 meq/L 3.6-5.5 THROMBOELASTOGRAPH (TEG)2018-02-09 20:27:00* Test Item Value Reference Range Comments TEG ACTIVATED CLOTTING TIME (BEAKER) (test enht=4409) 32.0 minutes 4.0-7.0 TEG FIBRINOGEN ACTIVITY (BEAKER) (test ppvl=0102) 15.6 degrees 61.0-73.0 TEG PLT. AGGREGATION (BEAKER) (test zbtb=0928) 25.4 MM 55.0-65.0 TEG FIBRINOLYSIS (BEAKER) (test gmwv=9591) 0.0 % 0.0-5.0 TGH ACTIVATED CLOTTING TIME (BEAKER) (test kryt=0933) 9.2 minutes 4.0-7.0 TGH FIBRINOGEN ACTIVITY (BEAKER) (test onmw=1332) 62.8 degrees 61.0-73.0 TGH PLT. AGGREGATION (BEAKER) (test hfmj=3472) 61.5 MM 55.0-65.0 TGH FIBRINOLYSIS (BEAKER) (test rftg=4309) 0.0 % 0.0-5.0 [id number] 19:24:00* Test Item Value Reference Range Comments PARTIAL THROMBOPLASTIN TIME (BEAKER) (test utnh=830) 53.0 seconds 22.5-36.0 BLOOD GAS, [id number] 18:56:00* Test Item Value Reference Range Comments PH ARTERIAL (BEAKER) (test fder=772) 7.44 7.35-7.45 PCO2 ARTERIAL (BEAKER) (test knlt=076) 47 mmHg 35-45 PO2 ARTERIAL (BEAKER) (test uwro=371) 108 mmHg 80-90 O2 SATURATION ARTERIAL (BEAKER) (test ovgo=610) 98.1 % 96.0-97.0 HCO3 ARTERIAL (BEAKER) (test obgq=906) 31 mmol/L 21-29 BASE EXCESS ARTERIAL (BEAKER) (test mqje=252) 5.9 mmol/L -2.0-3.0 PATIENT TEMPERATURE (BEAKER) (test mdoe=8130) 36.5 C FIO2 (BEAKER) (test qifr=1950) 60.0 % OXYGEN SATURATION, [id number] 16:13:00* Test Item Value Reference Range Comments O2 SATURATION (MEASURED) (BEAKER) (test ysjd=8068) 34.6 % BLOOD GAS, [id number] 16:13:00* Test Item Value Reference Range Comments PH ARTERIAL (BEAKER) (test zlgc=857) 7.45 7.35-7.45 PCO2 ARTERIAL (BEAKER) (test ywpi=658) 43 mmHg 35-45 PO2 ARTERIAL (BEAKER) (test yxqr=390) 32 mmHg 80-90 O2 SATURATION ARTERIAL (BEAKER) (test bzpe=610) 65.5 % 96.0-97.0 HCO3 ARTERIAL (BEAKER) (test ryrk=481) 30 mmol/L 21-29 BASE EXCESS ARTERIAL (BEAKER) (test bixx=445) 5.1 mmol/L -2.0-3.0 PATIENT TEMPERATURE (BEAKER) (test mwro=0839) 36.6 C FIO2 (BEAKER) (test tszb=9800) 60.0 % SODIUM NA-STAT [id number] 16:11:00* Test Item Value Reference Range Comments SODIUM (BEAKER) (test prtr=966) 142 meq/L 135-148 POTASSIUM-STAT [id number] 16:11:00* Test Item Value Reference Range Comments POTASSIUM (BEAKER) (test qlas=989) 4.3 meq/L 3.6-5.5 GLUCOSE-STAT [id number] 16:11:00* Test Item Value Reference Range Comments GLUCOSE RANDOM (BEAKER) (test ecbu=700) 165 mg/dL 70-110 HGB/HCT (H&H) - STAT [id number] 16:11:00* Test Item Value Reference Range Comments HEMOGLOBIN (BEAKER) (test wcas=325) 9.7 g/dL 12.0-15.0 HEMATOCRIT (BEAKER) (test tewa=429) 29.0 % 36.0-45.0 [id number] 13:37:00* Test Item Value Reference Range Comments PARTIAL THROMBOPLASTIN TIME (BEAKER) (test vegz=043) 39.3 seconds 22.5-36.0 BLOOD GAS, [id number] 13:25:00* Test Item Value Reference Range Comments PH ARTERIAL (BEAKER) (test vpsi=156) 7.44 7.35-7.45 PCO2 ARTERIAL (BEAKER) (test jxok=633) 46 mmHg 35-45 PO2 ARTERIAL (BEAKER) (test olvi=282) 58 mmHg 80-90 O2 SATURATION ARTERIAL (BEAKER) (test voov=189) 91.3 % 96.0-97.0 HCO3 ARTERIAL (BEAKER) (test gbci=660) 30 mmol/L 21-29 BASE EXCESS ARTERIAL (BEAKER) (test ydwr=052) 5.5 mmol/L -2.0-3.0 PATIENT TEMPERATURE (BEAKER) (test hsan=0802) 36.5 C FIO2 (BEAKER) (test cyyl=4613) 60.0 % GLUCOSE-STAT [id number] 13:25:00* Test Item Value Reference Range Comments GLUCOSE RANDOM (BEAKER) (test rdtt=987) 146 mg/dL 70-110 HGB/HCT (H&H) - STAT [id number] 13:25:00* Test Item Value Reference Range Comments HEMOGLOBIN (BEAKER) (test fqoc=202) 9.2 g/dL 12.0-15.0 HEMATOCRIT (BEAKER) (test pgzh=584) 27.0 % 36.0-45.0 SODIUM NA-STAT [id number] 13:24:00* Test Item Value Reference Range Comments SODIUM (BEAKER) (test qmku=000) 140 meq/L 135-148 POTASSIUM-STAT [id number] 13:24:00* Test Item Value Reference Range Comments POTASSIUM (BEAKER) (test wuft=254) 3.5 meq/L 3.6-5.5 ANTITHROMBIN [id number] 12:14:00* Test Item Value Reference Range Comments ANTITHROMBIN III ACTIVITY (BEAKER) (test snpz=646) 66.0 % 80.0-120.0 THROMBOELASTOGRAPH (TEG)2018-02-09 10:20:00* Test Item Value Reference Range Comments TEG ACTIVATED CLOTTING TIME (BEAKER) (test hzju=5479) 11.8 minutes 4.0-7.0 TEG FIBRINOGEN ACTIVITY (BEAKER) (test jskf=9820) 52.8 degrees 61.0-73.0 TEG PLT. AGGREGATION (BEAKER) (test hiqx=8869) 49.6 MM 55.0-65.0 TEG FIBRINOLYSIS (BEAKER) (test vvzt=1183) 2.5 % 0.0-5.0 TGH ACTIVATED CLOTTING TIME (BEAKER) (test aorl=5397) 6.8 minutes 4.0-7.0 TGH FIBRINOGEN ACTIVITY (BEAKER) (test knuu=8764) 63.8 degrees 61.0-73.0 TGH PLT. AGGREGATION (BEAKER) (test wsgc=6586) 50.8 MM 55.0-65.0 TGH FIBRINOLYSIS (BEAKER) (test zijd=7974) 0.0 % 0.0-5.0 BLOOD GAS, [id number] 08:57:00* Test Item Value Reference Range Comments PH ARTERIAL (BEAKER) (test kqzh=359) 7.43 7.35-7.45 PCO2 ARTERIAL (BEAKER) (test wnut=793) 45 mmHg 35-45 PO2 ARTERIAL (BEAKER) (test svrl=833) 70 mmHg 80-90 O2 SATURATION ARTERIAL (BEAKER) (test oett=420) 94.9 % 96.0-97.0 HCO3 ARTERIAL (BEAKER) (test cyfw=034) 29 mmol/L 21-29 BASE EXCESS ARTERIAL (BEAKER) (test qipa=932) 4.5 mmol/L -2.0-3.0 PATIENT TEMPERATURE (BEAKER) (test prgy=7138) 36.5 C FIO2 (BEAKER) (test yyyn=7888) 60.0 % GLUCOSE-STAT [id number] 08:57:00* Test Item Value Reference Range Comments GLUCOSE RANDOM (BEAKER) (test oism=633) 121 mg/dL 70-110 HGB/HCT (H&H) - STAT [id number] 08:57:00* Test Item Value Reference Range Comments HEMOGLOBIN (BEAKER) (test biix=524) 9.5 g/dL 12.0-15.0 HEMATOCRIT (BEAKER) (test amzg=120) 28.0 % 36.0-45.0 SODIUM NA-STAT [id number] 08:56:00* Test Item Value Reference Range Comments SODIUM (BEAKER) (test srma=205) 141 meq/L 135-148 POTASSIUM-STAT [id number] 08:56:00* Test Item Value Reference Range Comments POTASSIUM (BEAKER) (test mjoa=345) 4.2 meq/L 3.6-5.5 [id number] 08:49:00* Test Item Value Reference Range Comments PARTIAL THROMBOPLASTIN TIME (BEAKER) (test uvrk=417) 35.7 seconds 22.5-36.0 HEPARIN ASSAY - [id number] 08:09:00* Test Item Value Reference Range Comments UNFRACTIONATED HEPARIN-ANTI 10A (BEAKER) (test orqz=1692) < u/ml 0.30-0.70 Recommendations for Monitoring Unfractionated Heparin Therapeutic Range: 0.3-0. 7 u/mL with continuous IV infusionFIBRIN SOLUBLE [id number] 08:03:00* Test Item Value Reference Range Comments FIBRIN SOLUBLE MONOMER (BEAKER) (test pkmm=6311) Negative RAD, CHEST, 1 VIEW, NON [id number] 05:17:00Reason for exam:-> ECMO/intubatedShould this be performed at the bedside?->YesIs the patient ?->UnknownFINAL REPORT RAD, CHEST, 1 VIEW, NON DEPT INDICATION: ECMO/intubated COMPARISON: Prior day's exam FINDINGS: Portable frontal view of the chest. IMPRESSION: Support Lines: [place] catheter has been advanced now terminating over the left distal main pulmonary artery. Remaining support hardware is stable. Lungs and pleura: Unchanged airspace and pleural opacities, predominantly on the left. No pneumothorax.Heart and mediastinum: Stable contours. Stable surgical changes.Additional findings: None. Signed: JR Lucas Robert [facility] Verified Date/Time: 02/09/2018 05:17:53 Reading Location: [address] Transitional Reading Room MBOELASTOGRAPH (TEG)2018-02-09 04:55:00* Test Item Value Reference Range Comments TEG ACTIVATED CLOTTING TIME (BEAKER) (test numl=4034) 9.3 minutes 4.0-7.0 TEG FIBRINOGEN ACTIVITY (BEAKER) (test wser=0482) 57.2 degrees 61.0-73.0 TEG PLT. AGGREGATION (BEAKER) (test sqmz=3290) 49.2 MM 55.0-65.0 TEG FIBRINOLYSIS (BEAKER) (test iawp=4427) 12.6 % 0.0-5.0 TGH ACTIVATED CLOTTING TIME (BEAKER) (test jhkz=9256) 6.2 minutes 4.0-7.0 TGH FIBRINOGEN ACTIVITY (BEAKER) (test bbnc=6859) 65.6 degrees 61.0-73.0 TGH PLT. AGGREGATION (BEAKER) (test ufbu=1223) 50.0 MM 55.0-65.0 TGH FIBRINOLYSIS (BEAKER) (test dueh=5204) 1.7 % 0.0-5.0 [id number] 03:58:00* Test Item Value Reference Range Comments D-DIMER QUANTITATIVE (BEAKER) (test psdw=733) 11.50 MG/L FEU <0.50 Intended Use: The D-Dimer Assay can be used to aid in the diagnosis of Deep Vein Thrombosis (DVT) and Pulmonary Embolism Disease (PED).In patients with low pre- test probability, various studies concerning STA Liatest D-dimer test have repor emily that with a cutoff value of 0.50 MG/L FEU, the Negative Predictive Value (ELEVATED WORK PLATFORM OPERATOR V) regarding the exclusion of thrombosis is within 95-100% range.MAGNESIUM 2018-02-09 03:51:00* Test Item Value Reference Range Comments MAGNESIUM (BEAKER) (test rmco=054) 2.1 mg/dL 1.6-2.6 BASIC METABOLIC [id number] 03:51:00* Test Item Value Reference Range Comments SODIUM (BEAKER) (test viby=284) 143 meq/L 136-145 POTASSIUM (BEAKER) (test soaj=405) 3.6 meq/L 3.5-5.1 CHLORIDE (BEAKER) (test gpfc=831) 102 meq/L 98-107 CO2 (BEAKER) (test zmxj=745) 25 meq/L 22-29 BLOOD UREA NITROGEN (BEAKER) (test msnz=037) 43 mg/dL 7-21 CREATININE (BEAKER) (test sjjd=076) 1.33 mg/dL 0.57-1.25 GLUCOSE RANDOM (BEAKER) (test pwvb=314) 140 mg/dL 70-105 CALCIUM (BEAKER) (test rfch=470) 9.2 mg/dL 8.4-10.2 EGFR (BEAKER) (test bdzg=7330) 42 mL/min/1.73 sq m ESTIMATED GFR IS NOT ACCURATE CREATININE CLEARANCE IN PREDICTING GLOMERULAR FILTRATION RATE. ESTIMATED GFR IS NOT APPLICABLE FOR DIALYSIS PATIENTS. Specimen moderately ictericHEPATIC FUNCTION [id number] 03:51:00* Test Item Value Reference Range Comments TOTAL PROTEIN (BEAKER) (test fwai=221) 5.9 gm/dL 6.0-8.3 ALBUMIN (BEAKER) (test fdpg=0691) 3.6 g/dL 3.5-5.0 BILIRUBIN TOTAL (BEAKER) (test wnth=998) 8.1 mg/dL 0.2-1.2 BILIRUBIN DIRECT (BEAKER) (test tvqu=416) 5.7 mg/dL 0.1-0.5 ALKALINE PHOSPHATASE (BEAKER) (test raox=495) 218 U/L 40-150 AST (SGOT) (BEAKER) (test rkzy=102) 81 U/L 5-34 ALT (SGPT) (BEAKER) (test rslx=919) 71 U/L 6-55 Specimen moderately ictericLACTATE DEHYDROGENASE (LDH)2018-02-09 03:51:00* Test Item Value Reference Range Comments LACTATE DEHYDROGENASE (BEAKER) (test zpdh=066) 769 U/L 125-220 LACTIC ACID, ARTERIAL, WHOLE [id number] 03:50:00* Test Item Value Reference Range Comments LACTATE BLOOD ARTERIAL (2) (BEAKER) (test ezty=7108) 1.5 mmol/L 0.5-2.2 Effective 03/10/2016: Units/Reference Range ChangeNew: 0.5-2.2 mmol/L Previous: 5 -20 mg/dLSpecimen moderately [id number] 03:49:00* Test Item Value Reference Range Comments PARTIAL THROMBOPLASTIN TIME (BEAKER) (test lrys=841) 35.1 seconds 22.5-36.0 PROTHROMBIN TIME/[id number] 03:48:00* Test Item Value Reference Range Comments PROTIME (BEAKER) (test ehpw=278) 15.3 seconds 11.7-14.7 INR (BEAKER) (test oaxk=127) 1.2 <=5.9 RECOMMENDED COUMADIN/WARFARIN INR THERAPY RANGESSTANDARD DOSE: 2.0 - 3.0 Inclu connie: PROPHYLAXIS for venous thrombosis, systemic embolization; TREATMENT for lupis ous thrombosis and/or pulmonary embolus.HIGH RISK: Target INR is 2.5-3.5 for pat ients with mechanical heart valves.[id number] 03:48:00* Test Item Value Reference Range Comments FIBRINOGEN LEVEL (BEAKER) (test aciq=079) 471 mg/dl 225-434 CBC (HEMOGRAM ONLY)2018-02-09 03:38:00* Test Item Value Reference Range Comments WHITE BLOOD CELL COUNT (BEAKER) (test lwlk=054) 18.6 K/ L 3.5-10.5 RED BLOOD CELL COUNT (BEAKER) (test gpli=847) 3.04 M/ L 3.93-5.22 HEMOGLOBIN (BEAKER) (test sxtf=757) 9.0 GM/DL 11.2-15.7 HEMATOCRIT (BEAKER) (test znqy=115) 27.3 % 34.1-44.9 MEAN CORPUSCULAR VOLUME (BEAKER) (test fbix=273) 89.8 fL 79.4-94.8 MEAN CORPUSCULAR HEMOGLOBIN (BEAKER) (test razz=922) 29.6 pg 25.6-32.2 MEAN CORPUSCULAR HEMOGLOBIN CONC (BEAKER) (test iyog=351) 33.0 GM/DL 32.2-35.5 RED CELL DISTRIBUTION WIDTH (BEAKER) (test zoar=509) 16.3 % 11.7-14.4 PLATELET COUNT (BEAKER) (test ovve=864) 79 K/CU MM 150-450 MEAN PLATELET VOLUME (BEAKER) (test zfiv=326) 10.6 fL 9.4-12.3 NUCLEATED RED BLOOD CELLS (BEAKER) (test vuet=692) 3 /100 WBC 0-0 OXYGEN SATURATION, [id number] 03:18:00* Test Item Value Reference Range Comments O2 SATURATION (MEASURED) (BEAKER) (test vdbl=6415) 89.9 % BLOOD GAS, [id number] 03:16:00* Test Item Value Reference Range Comments PH ARTERIAL (BEAKER) (test yyoq=465) 7.44 7.35-7.45 PCO2 ARTERIAL (BEAKER) (test gcxk=341) 44 mmHg 35-45 PO2 ARTERIAL (BEAKER) (test yhxe=459) 194 mmHg 80-90 O2 SATURATION ARTERIAL (BEAKER) (test xnex=367) 99.4 % 96.0-97.0 HCO3 ARTERIAL (BEAKER) (test cyka=232) 29 mmol/L 21-29 BASE EXCESS ARTERIAL (BEAKER) (test uwme=141) 4.1 mmol/L -2.0-3.0 PATIENT TEMPERATURE (BEAKER) (test onbz=2678) 36.8 C FIO2 (BEAKER) (test kaes=0619) 100.0 % CALCIUM, [id number] 03:16:00* Test Item Value Reference Range Comments CALCIUM IONIZED (BEAKER) (test bpgu=696) 1.12 mmol/L 1.12-1.27 PH, BLOOD (BEAKER) (test mfbm=2046) 7.43 BLOOD GAS, [id number] 03:09:00* Test Item Value Reference Range Comments PH ARTERIAL (BEAKER) (test ttyw=592) 7.44 7.35-7.45 PCO2 ARTERIAL (BEAKER) (test hwte=719) 43 mmHg 35-45 PO2 ARTERIAL (BEAKER) (test ooeq=822) 321 mmHg 80-90 O2 SATURATION ARTERIAL (BEAKER) (test ufdl=176) 99.7 % 96.0-97.0 HCO3 ARTERIAL (BEAKER) (test zktm=349) 29 mmol/L 21-29 BASE EXCESS ARTERIAL (BEAKER) (test rpxz=679) 3.9 mmol/L -2.0-3.0 PATIENT TEMPERATURE (BEAKER) (test rumu=0709) 36.5 C FIO2 (BEAKER) (test nbji=9252) 100.0 % THROMBOELASTOGRAPH (TEG)2018-02-09 00:56:00* Test Item Value Reference Range Comments TEG ACTIVATED CLOTTING TIME (BEAKER) (test sokg=1408) 7.8 minutes 4.0-7.0 TEG FIBRINOGEN ACTIVITY (BEAKER) (test kcoh=0116) 66.2 degrees 61.0-73.0 TEG PLT. AGGREGATION (BEAKER) (test xrzi=2869) 55.0 MM 55.0-65.0 TEG FIBRINOLYSIS (BEAKER) (test wfcs=3508) 28.8 % 0.0-5.0 TGH ACTIVATED CLOTTING TIME (BEAKER) (test jutx=7885) 4.8 minutes 4.0-7.0 TGH FIBRINOGEN ACTIVITY (BEAKER) (test oiyl=0756) 70.3 degrees 61.0-73.0 TGH PLT. AGGREGATION (BEAKER) (test difm=9327) 51.5 MM 55.0-65.0 TGH FIBRINOLYSIS (BEAKER) (test okaz=6574) 3.6 % 0.0-5.0 BLOOD GAS, [id number] 23:45:00* Test Item Value Reference Range Comments PH ARTERIAL (BEAKER) (test wngq=578) 7.44 7.35-7.45 PCO2 ARTERIAL (BEAKER) (test xltj=478) 43 mmHg 35-45 PO2 ARTERIAL (BEAKER) (test kahx=167) 109 mmHg 80-90 O2 SATURATION ARTERIAL (BEAKER) (test pdfx=066) 98.1 % 96.0-97.0 HCO3 ARTERIAL (BEAKER) (test atve=430) 29 mmol/L 21-29 BASE EXCESS ARTERIAL (BEAKER) (test hbad=586) 4.0 mmol/L -2.0-3.0 PATIENT TEMPERATURE (BEAKER) (test lmxy=4573) 36.8 C FIO2 (BEAKER) (test aijn=2832) 100.0 % SPIN/CONCENTRATION [id number] 23:27:00* Test Item Value Reference Range Comments CONCENTRATION CHARGED (BEAKER) (test swma=1461) Done GLUCOSE-STAT [id number] 21:34:00* Test Item Value Reference Range Comments GLUCOSE RANDOM (BEAKER) (test vvdg=845) 137 mg/dL 70-110 HGB/HCT (H&H) - STAT [id number] 21:34:00* Test Item Value Reference Range Comments HEMOGLOBIN (BEAKER) (test xirp=129) 9.7 g/dL 12.0-15.0 HEMATOCRIT (BEAKER) (test rzwg=045) 29.0 % 36.0-45.0 SODIUM NA-STAT [id number] 21:33:00* Test Item Value Reference Range Comments SODIUM (BEAKER) (test rihz=749) 141 meq/L 135-148 POTASSIUM-STAT [id number] 21:33:00* Test Item Value Reference Range Comments POTASSIUM (BEAKER) (test oyxt=439) 3.9 meq/L 3.6-5.5 BLOOD GAS, [id number] 21:33:00* Test Item Value Reference Range Comments PH ARTERIAL (BEAKER) (test tllx=925) 7.45 7.35-7.45 PCO2 ARTERIAL (BEAKER) (test irmq=878) 42 mmHg 35-45 PO2 ARTERIAL (BEAKER) (test cwjl=074) 108 mmHg 80-90 O2 SATURATION ARTERIAL (BEAKER) (test apzv=378) 98.1 % 96.0-97.0 HCO3 ARTERIAL (BEAKER) (test wdoa=253) 28 mmol/L 21-29 BASE EXCESS ARTERIAL (BEAKER) (test dtfe=217) 3.8 mmol/L -2.0-3.0 PATIENT TEMPERATURE (BEAKER) (test ekei=1920) 36.7 C FIO2 (BEAKER) (test qxep=4790) 100.0 % THROMBOELASTOGRAPH (TEG)2018-02-08 18:27:00* Test Item Value Reference Range Comments TEG ACTIVATED CLOTTING TIME (BEAKER) (test fxlw=1883) 10.5 minutes 4.0-7.0 TEG FIBRINOGEN ACTIVITY (BEAKER) (test mhih=3231) 47.5 degrees 61.0-73.0 TEG PLT. AGGREGATION (BEAKER) (test egkz=3690) 52.8 MM 55.0-65.0 TEG FIBRINOLYSIS (BEAKER) (test tnxu=0115) 4.7 % 0.0-5.0 TGH ACTIVATED CLOTTING TIME (BEAKER) (test sufs=2143) 5.6 minutes 4.0-7.0 TGH FIBRINOGEN ACTIVITY (BEAKER) (test bttg=9041) 65.4 degrees 61.0-73.0 TGH PLT. AGGREGATION (BEAKER) (test qkkq=2740) 50.8 MM 55.0-65.0 TGH FIBRINOLYSIS (BEAKER) (test shhv=0424) 0.6 % 0.0-5.0 [id number] 16:52:00* Test Item Value Reference Range Comments PARTIAL THROMBOPLASTIN TIME (BEAKER) (test fpyv=371) 32.5 seconds 22.5-36.0 POTASSIUM-STAT [id number] 16:25:00* Test Item Value Reference Range Comments POTASSIUM (BEAKER) (test vbni=897) 3.9 meq/L 3.6-5.5 GLUCOSE-STAT [id number] 16:24:00* Test Item Value Reference Range Comments GLUCOSE RANDOM (BEAKER) (test jteh=738) 134 mg/dL 70-110 HGB/HCT (H&H) - STAT [id number] 16:24:00* Test Item Value Reference Range Comments HEMOGLOBIN (BEAKER) (test ngdo=396) 9.4 GM/DL 12.0-15.0 HEMATOCRIT (BEAKER) (test muee=576) 28.0 % 36.0-45.0 CALCIUM, [id number] 16:23:00* Test Item Value Reference Range Comments CALCIUM IONIZED (BEAKER) (test myqg=505) 1.25 mmol/L 1.12-1.27 PH, BLOOD (BEAKER) (test qyqv=9204) 7.44 ANTITHROMBIN [id number] 14:23:00* Test Item Value Reference Range Comments ANTITHROMBIN III ACTIVITY (BEAKER) (test bywj=121) 68.0 % 80.0-120.0 HEPARIN ASSAY - [id number] 14:23:00* Test Item Value Reference Range Comments UNFRACTIONATED HEPARIN-ANTI 10A (BEAKER) (test ugze=6900) 0.12 u/ml 0.30-0.70 Recommendations for Monitoring Unfractionated Heparin Therapeutic Range: 0.3-0. 7 u/mL with continuous IV infusionSODIUM NA-STAT [id number] 13:47:00* Test Item Value Reference Range Comments SODIUM (BEAKER) (test bljj=302) 136 meq/L 135-148 POTASSIUM-STAT [id number] 13:47:00* Test Item Value Reference Range Comments POTASSIUM (BEAKER) (test jsuo=123) 3.7 meq/L 3.6-5.5 HGB/HCT (H&H) - STAT [id number] 13:47:00* Test Item Value Reference Range Comments HEMOGLOBIN (BEAKER) (test ovep=895) 8.9 g/dL 12.0-15.0 HEMATOCRIT (BEAKER) (test udbk=311) 26.0 % 36.0-45.0 GLUCOSE-STAT [id number] 13:47:00* Test Item Value Reference Range Comments GLUCOSE RANDOM (BEAKER) (test ofbn=890) 145 mg/dL 70-110 BLOOD GAS, [id number] 13:47:00* Test Item Value Reference Range Comments PH ARTERIAL (BEAKER) (test dada=706) 7.43 7.35-7.45 PCO2 ARTERIAL (BEAKER) (test pcac=748) 41 mmHg 35-45 PO2 ARTERIAL (BEAKER) (test iaxf=365) 54 mmHg 80-90 O2 SATURATION ARTERIAL (BEAKER) (test htce=928) 89.3 % 96.0-97.0 HCO3 ARTERIAL (BEAKER) (test tvgn=499) 27 mmol/L 21-29 BASE EXCESS ARTERIAL (BEAKER) (test qmmf=509) 2.0 mmol/L -2.0-3.0 PATIENT TEMPERATURE (BEAKER) (test swkp=4016) 36.7 C FIO2 (BEAKER) (test brnn=7782) 60.0 % CALCIUM, [id number] 12:22:00* Test Item Value Reference Range Comments CALCIUM IONIZED (BEAKER) (test hrdk=356) 1.09 mmol/L 1.12-1.27 PH, BLOOD (BEAKER) (test yiae=6743) 7.42 THROMBOELASTOGRAPH (TEG)2018-02-08 12:07:00* Test Item Value Reference Range Comments TEG ACTIVATED CLOTTING TIME (BEAKER) (test aase=4186) 8.9 minutes 4.0-7.0 TEG FIBRINOGEN ACTIVITY (BEAKER) (test besf=6193) 64.2 degrees 61.0-73.0 TEG [address]T. AGGREGATION (BEAKER) (test esrk=6829) 60.3 MM 55.0-65.0 TEG FIBRINOLYSIS (BEAKER) (test pudl=7871) 8.8 % 0.0-5.0 TGH ACTIVATED CLOTTING TIME (BEAKER) (test zieq=6463) 3.8 minutes 4.0-7.0 TGH FIBRINOGEN ACTIVITY (BEAKER) (test dhcg=0085) 69.2 degrees 61.0-73.0 TGH PLT. AGGREGATION (BEAKER) (test wmtg=7033) 57.7 MM 55.0-65.0 TGH FIBRINOLYSIS (BEAKER) (test nhpr=3646) 0.9 % 0.0-5.0 FIBRIN SOLUBLE [id number] 10:21:00* Test Item Value Reference Range Comments FIBRIN SOLUBLE MONOMER (BEAKER) (test lbye=4609) Negative [id number] 09:36:00* Test Item Value Reference Range Comments FIBRINOGEN LEVEL (BEAKER) (test pxtz=213) 378 mg/dl 225-434 HEPARIN ASSAY - [id number] 07:50:00* Test Item Value Reference Range Comments UNFRACTIONATED HEPARIN-ANTI 10A (BEAKER) (test cifr=7922) 0.14 u/ml 0.30-0.70 Recommendations for Monitoring Unfractionated Heparin Therapeutic Range: 0.3-0. 7 u/mL with continuous IV infusionFIBRIN SOLUBLE [id number] 07:40:00* Test Item Value Reference Range Comments FIBRIN SOLUBLE MONOMER (BEAKER) (test csip=4030) Negative THROMBOELASTOGRAPH (TEG)2018-02-08 06:47:00* Test Item Value Reference Range Comments TEG ACTIVATED CLOTTING TIME (BEAKER) (test zgjo=5507) 15.8 minutes 4.0-7.0 TEG FIBRINOGEN ACTIVITY (BEAKER) (test kdzo=7943) 50.1 degrees 61.0-73.0 TEG PLT. AGGREGATION (BEAKER) (test wclt=9812) 57.9 MM 55.0-65.0 TEG FIBRINOLYSIS (BEAKER) (test gxby=7326) 0.6 % 0.0-5.0 TGH ACTIVATED CLOTTING TIME (BEAKER) (test gnef=5415) 7.4 minutes 4.0-7.0 TGH FIBRINOGEN ACTIVITY (BEAKER) (test yczq=5623) 66.2 degrees 61.0-73.0 TGH PLT. AGGREGATION (BEAKER) (test tdcz=0436) 59.8 MM 55.0-65.0 TGH FIBRINOLYSIS (BEAKER) (test lcyo=0019) 0.2 % 0.0-5.0 BLOOD GAS, [id number] 05:47:00* Test Item Value Reference Range Comments PH ARTERIAL (BEAKER) (test nhgr=003) 7.38 7.35-7.45 PCO2 ARTERIAL (BEAKER) (test cubm=364) 44 mmHg 35-45 PO2 ARTERIAL (BEAKER) (test yvgg=139) 236 mmHg 80-90 O2 SATURATION ARTERIAL (BEAKER) (test hkrn=583) 99.5 % 96.0-97.0 HCO3 ARTERIAL (BEAKER) (test rjmu=183) 25 mmol/L 21-29 BASE EXCESS ARTERIAL (BEAKER) (test hazz=911) 0.1 mmol/L -2.0-3.0 PATIENT TEMPERATURE (BEAKER) (test kefe=8989) 37.0 C FIO2 (BEAKER) (test mhea=0269) 100.0 % [id number] 05:42:00* Test Item Value Reference Range Comments D-DIMER QUANTITATIVE (BEAKER) (test migy=857) 6.55 MG/L FEU <0.50 Intended Use: The D-Dimer Assay can be used to aid in the diagnosis of Deep Vein Thrombosis (DVT) and Pulmonary Embolism Disease (PED).In patients with low pre- test probability, various studies concerning STA Liatest D-dimer test have repor emily that with a cutoff value of 0.50 MG/L FEU, the Negative Predictive Value (ELEVATED WORK PLATFORM OPERATOR V) regarding the exclusion of thrombosis is within 95-100% range.FIBRINOGEN 2018-02-08 05:42:00* Test Item Value Reference Range Comments FIBRINOGEN LEVEL (BEAKER) (test aspw=152) 399 mg/dl 225-434 PROTHROMBIN TIME/[id number] 05:38:00* Test Item Value Reference Range Comments PROTIME (BEAKER) (test snal=469) 16.1 seconds 11.7-14.7 INR (BEAKER) (test eqeg=034) 1.3 <=5.9 RECOMMENDED COUMADIN/WARFARIN INR THERAPY RANGESSTANDARD DOSE: 2.0 - 3.0 Inclu connie: PROPHYLAXIS for venous thrombosis, systemic embolization; TREATMENT for lupis ous thrombosis and/or pulmonary embolus.HIGH RISK: Target INR is 2.5-3.5 for pat ients with mechanical heart valves.[id number] 05:38:00* Test Item Value Reference Range Comments PARTIAL THROMBOPLASTIN TIME (BEAKER) (test gopx=141) 40.6 seconds 22.5-36.0 LACTIC ACID, ARTERIAL, WHOLE [id number] 05:26:00* Test Item Value Reference Range Comments LACTATE BLOOD ARTERIAL (2) (BEAKER) (test kvqp=3084) 1.7 mmol/L 0.5-2.2 Effective 03/10/2016: Units/Reference Range ChangeNew: 0.5-2.2 mmol/L Previous: 5 -20 mg/dLSpecimen moderately [id number] 05:23:00* Test Item Value Reference Range Comments MAGNESIUM (BEAKER) (test pgip=802) 2.5 mg/dL 1.6-2.6 BASIC METABOLIC [id number] 05:23:00* Test Item Value Reference Range Comments SODIUM (BEAKER) (test ndxl=377) 139 meq/L 136-145 POTASSIUM (BEAKER) (test gdfi=889) 4.4 meq/L 3.5-5.1 CHLORIDE (BEAKER) (test lssr=854) 104 meq/L 98-107 CO2 (BEAKER) (test vhxb=598) 22 meq/L 22-29 BLOOD UREA NITROGEN (BEAKER) (test dgna=064) 44 mg/dL 7-21 CREATININE (BEAKER) (test awge=193) 1.48 mg/dL 0.57-1.25 GLUCOSE RANDOM (BEAKER) (test urww=067) 149 mg/dL 70-105 CALCIUM (BEAKER) (test psgy=501) 8.5 mg/dL 8.4-10.2 EGFR (BEAKER) (test iqfw=3483) 37 mL/min/1.73 sq m ESTIMATED GFR IS NOT ACCURATE CREATININE CLEARANCE IN PREDICTING GLOMERULAR FILTRATION RATE. ESTIMATED GFR IS NOT APPLICABLE FOR DIALYSIS PATIENTS. Specimen moderately ictericHEPATIC FUNCTION [id number] 05:23:00* Test Item Value Reference Range Comments TOTAL PROTEIN (BEAKER) (test veqo=442) 5.7 gm/dL 6.0-8.3 ALBUMIN (BEAKER) (test fcyr=2589) 3.8 g/dL 3.5-5.0 BILIRUBIN TOTAL (BEAKER) (test jcjj=829) 8.9 mg/dL 0.2-1.2 BILIRUBIN DIRECT (BEAKER) (test nkku=463) 6.2 mg/dL 0.1-0.5 ALKALINE PHOSPHATASE (BEAKER) (test ungt=412) 152 U/L 40-150 AST (SGOT) (BEAKER) (test hche=592) 90 U/L 5-34 ALT (SGPT) (BEAKER) (test bfdx=164) 71 U/L 6-55 Specimen moderately ictericLACTATE DEHYDROGENASE (LDH)2018-02-08 05:23:00* Test Item Value Reference Range Comments LACTATE DEHYDROGENASE (BEAKER) (test kxwm=179) 746 U/L 125-220 CBC (HEMOGRAM ONLY)2018-02-08 04:59:00* Test Item Value Reference Range Comments WHITE BLOOD CELL COUNT (BEAKER) (test snlm=759) 17.7 K/ L 3.5-10.5 RED BLOOD CELL COUNT (BEAKER) (test grsl=198) 2.83 M/ L 3.93-5.22 HEMOGLOBIN (BEAKER) (test jaox=381) 8.5 GM/DL 11.2-15.7 HEMATOCRIT (BEAKER) (test gjla=631) 25.1 % 34.1-44.9 MEAN CORPUSCULAR VOLUME (BEAKER) (test sjbv=927) 88.7 fL 79.4-94.8 MEAN CORPUSCULAR HEMOGLOBIN (BEAKER) (test qbef=332) 30.0 pg 25.6-32.2 MEAN CORPUSCULAR HEMOGLOBIN CONC (BEAKER) (test lggn=290) 33.9 GM/DL 32.2-35.5 RED CELL DISTRIBUTION WIDTH (BEAKER) (test hgwr=424) 16.0 % 11.7-14.4 PLATELET COUNT (BEAKER) (test vmea=551) 102 K/CU MM 150-450 MEAN PLATELET VOLUME (BEAKER) (test kqdq=408) 10.9 fL 9.4-12.3 NUCLEATED RED BLOOD CELLS (BEAKER) (test gefl=421) 4 /100 WBC 0-0 BLOOD GAS, [id number] 04:51:00* Test Item Value Reference Range Comments PH ARTERIAL (BEAKER) (test xnjs=228) 7.38 7.35-7.45 PCO2 ARTERIAL (BEAKER) (test ifmj=213) 41 mmHg 35-45 PO2 ARTERIAL (BEAKER) (test doyr=481) 86 mmHg 80-90 O2 SATURATION ARTERIAL (BEAKER) (test towt=093) 96.4 % 96.0-97.0 HCO3 ARTERIAL (BEAKER) (test jlri=441) 24 mmol/L 21-29 BASE EXCESS ARTERIAL (BEAKER) (test esqr=562) -1.2 mmol/L -2.0-3.0 PATIENT TEMPERATURE (BEAKER) (test cddx=7623) 36.9 C FIO2 (BEAKER) (test kuom=4933) 60.0 % OXYGEN SATURATION, [id number] 04:51:00* Test Item Value Reference Range Comments O2 SATURATION (MEASURED) (BEAKER) (test wqss=2255) 87.5 % CALCIUM, [id number] 04:51:00* Test Item Value Reference Range Comments CALCIUM IONIZED (BEAKER) (test ovtt=919) 1.04 mmol/L 1.12-1.27 PH, BLOOD (BEAKER) (test legn=6466) 7.38 RAD, CHEST, 1 VIEW, NON [id number] 04:50:00Reason for exam:-> ECMO/intubatedShould this be performed at the bedside?->YesIs the patient ?->UnknownFINAL REPORT CLINICAL INDICATION: Support lines. Comparison: 02/07/2018 The cardiomediastinal contours are stable. The lung volumes remain low. Central pulmonary vascular congestion and left greater than right parenchymal and left pleural opacities are unchanged. There is no pneumothorax. Support lines are stable. Signed: Abel Schwartz MDReport Verified Date/Time: 02/08/2018 04:50:32 Reading Location: [address] Reading Room D GAS, [id number] 01:41:00* Test Item Value Reference Range Comments PH ARTERIAL (BEAKER) (test gjay=606) 7.38 7.35-7.45 PCO2 ARTERIAL (BEAKER) (test vwwy=831) 43 mmHg 35-45 PO2 ARTERIAL (BEAKER) (test hnqr=482) 73 mmHg 80-90 O2 SATURATION ARTERIAL (BEAKER) (test sjat=467) 94.6 % 96.0-97.0 HCO3 ARTERIAL (BEAKER) (test quff=284) 25 mmol/L 21-29 BASE EXCESS ARTERIAL (BEAKER) (test dqrl=325) -0.5 mmol/L -2.0-3.0 PATIENT TEMPERATURE (BEAKER) (test oqhq=6578) 36.8 C FIO2 (BEAKER) (test esns=7212) 60.0 % GLUCOSE-STAT [id number] 01:41:00* Test Item Value Reference Range Comments GLUCOSE RANDOM (BEAKER) (test zeun=828) 143 mg/dL 70-110 HGB/HCT (H&H) - STAT [id number] 01:41:00* Test Item Value Reference Range Comments HEMOGLOBIN (BEAKER) (test cisl=468) 8.9 g/dL 12.0-15.0 HEMATOCRIT (BEAKER) (test esvd=351) 26.0 % 36.0-45.0 CALCIUM, [id number] 01:41:00* Test Item Value Reference Range Comments CALCIUM IONIZED (BEAKER) (test jgjn=672) 1.08 mmol/L 1.12-1.27 PH, BLOOD (BEAKER) (test rlxx=7598) 7.37 SODIUM NA-STAT [id number] 01:40:00* Test Item Value Reference Range Comments SODIUM (BEAKER) (test ezmh=258) 140 meq/L 135-148 POTASSIUM-STAT [id number] 01:40:00* Test Item Value Reference Range Comments POTASSIUM (BEAKER) (test hmsf=010) 3.6 meq/L 3.6-5.5 POTASSIUM-STAT [id number] 21:33:00* Test Item Value Reference Range Comments POTASSIUM (BEAKER) (test xiyx=957) 3.6 meq/L 3.6-5.5 BLOOD GAS, [id number] 21:33:00* Test Item Value Reference Range Comments PH ARTERIAL (BEAKER) (test cckv=607) 7.39 7.35-7.45 PCO2 ARTERIAL (BEAKER) (test fbhd=718) 41 mmHg 35-45 PO2 ARTERIAL (BEAKER) (test lavj=554) 131 mmHg 80-90 O2 SATURATION ARTERIAL (BEAKER) (test krfb=708) 98.6 % 96.0-97.0 HCO3 ARTERIAL (BEAKER) (test xwux=257) 24 mmol/L 21-29 BASE EXCESS ARTERIAL (BEAKER) (test iaip=080) -0.6 mmol/L -2.0-3.0 PATIENT TEMPERATURE (BEAKER) (test ezaz=3733) 36.8 C FIO2 (BEAKER) (test ehfd=1712) 60.0 % GLUCOSE-STAT [id number] 21:33:00* Test Item Value Reference Range Comments GLUCOSE RANDOM (BEAKER) (test nugc=444) 130 mg/dL 70-110 HEMOGLOBIN-STAT [id number] 21:33:00* Test Item Value Reference Range Comments HEMOGLOBIN (BEAKER) (test piol=715) 8.4 g/dL 12.0-15.0 HEMATOCRIT-STAT [id number] 21:33:00* Test Item Value Reference Range Comments HEMATOCRIT (BEAKER) (test sqxk=927) 25.0 % 36.0-45.0 [id number] 17:49:00* Test Item Value Reference Range Comments MAGNESIUM (BEAKER) (test ouxj=329) 2.4 mg/dL 1.6-2.6 Specimen slightly hemolyzed [id number] 17:49:00* Test Item Value Reference Range Comments POTASSIUM (BEAKER) (test uels=176) 4.0 meq/L 3.5-5.1 Specimen slightly hemolyzed BLOOD GAS, [id number] 17:03:00* Test Item Value Reference Range Comments PH ARTERIAL (BEAKER) (test kpxm=145) 7.39 7.35-7.45 PCO2 ARTERIAL (BEAKER) (test ylya=368) 43 mmHg 35-45 PO2 ARTERIAL (BEAKER) (test mmrv=857) 112 mmHg 80-90 O2 SATURATION ARTERIAL (BEAKER) (test biqn=522) 98.0 % 96.0-97.0 HCO3 ARTERIAL (BEAKER) (test tydy=484) 25 mmol/L 21-29 BASE EXCESS ARTERIAL (BEAKER) (test yiug=433) 0.2 mmol/L -2.0-3.0 PATIENT TEMPERATURE (BEAKER) (test jokg=4648) 36.8 C FIO2 (BEAKER) (test vatl=9211) 80.0 % GLUCOSE-STAT [id number] 17:03:00* Test Item Value Reference Range Comments GLUCOSE RANDOM (BEAKER) (test ipsc=624) 188 mg/dL 70-110 CALCIUM, [id number] 16:58:00* Test Item Value Reference Range Comments CALCIUM IONIZED (BEAKER) (test hgad=093) 1.10 mmol/L 1.12-1.27 PH, BLOOD (BEAKER) (test tvsw=2904) 7.38 THROMBOELASTOGRAPH (TEG)2018-02-07 15:29:00* Test Item Value Reference Range Comments TEG ACTIVATED CLOTTING TIME (BEAKER) (test zwqh=5041) 8.5 minutes 4.0-7.0 TEG FIBRINOGEN ACTIVITY (BEAKER) (test nozh=3712) 62.4 degrees 61.0-73.0 TEG PLT. AGGREGATION (BEAKER) (test srjq=9308) 51.9 MM 55.0-65.0 TEG FIBRINOLYSIS (BEAKER) (test tllp=8725) 0.0 % 0.0-5.0 TGH ACTIVATED CLOTTING TIME (BEAKER) (test qohg=0817) 4.7 minutes 4.0-7.0 TGH FIBRINOGEN ACTIVITY (BEAKER) (test uflq=5666) 66.4 degrees 61.0-73.0 TGH PLT. AGGREGATION (BEAKER) (test bpui=0422) 41.0 MM 55.0-65.0 TGH FIBRINOLYSIS (BEAKER) (test efxi=1837) 0.0 % 0.0-5.0 [id number] 14:47:00* Test Item Value Reference Range Comments PROTIME (BEAKER) (test eqfx=159) 17.5 seconds 11.7-14.7 INR (BEAKER) (test otmv=793) 1.4 <=5.9 PARTIAL THROMBOPLASTIN TIME (BEAKER) (test yljm=822) 42.1 seconds 22.5-36.0 RECOMMENDED COUMADIN/WARFARIN INR THERAPY RANGESSTANDARD DOSE: 2.0 - 3.0 Inclu connie: PROPHYLAXIS for venous thrombosis, systemic embolization; TREATMENT for lupis ous thrombosis and/or pulmonary embolus.HIGH RISK: Target INR is 2.5-3.5 for pat ients with mechanical heart valves.CALCIUM, [id number] 14:23:00* Test Item Value Reference Range Comments CALCIUM IONIZED (BEAKER) (test pgqh=820) 1.08 mmol/L 1.12-1.27 PH, BLOOD (BEAKER) (test foaq=8680) 7.43 BLOOD GAS, [id number] 14:23:00* Test Item Value Reference Range Comments PH ARTERIAL (BEAKER) (test gewd=661) 7.43 7.35-7.45 PCO2 ARTERIAL (BEAKER) (test eork=522) 34 mmHg 35-45 PO2 ARTERIAL (BEAKER) (test ings=072) 113 mmHg 80-90 O2 SATURATION ARTERIAL (BEAKER) (test yjiw=831) 98.3 % 96.0-97.0 HCO3 ARTERIAL (BEAKER) (test tkmh=728) 22 mmol/L 21-29 BASE EXCESS ARTERIAL (BEAKER) (test lgfz=763) -1.6 mmol/L -2.0-3.0 PATIENT TEMPERATURE (BEAKER) (test fliv=2131) 37.0 C FIO2 (BEAKER) (test ykrf=9887) 60.0 % GLUCOSE-STAT [id number] 14:23:00* Test Item Value Reference Range Comments GLUCOSE RANDOM (BEAKER) (test eltr=487) 143 mg/dL 70-110 OXYGEN SATURATION, [id number] 14:22:00* Test Item Value Reference Range Comments O2 SATURATION (MEASURED) (BEAKER) (test rfjq=7903) 88.8 % [id number] 12:57:00* Test Item Value Reference Range Comments PHOSPHORUS (BEAKER) (test aggc=664) 2.8 mg/dL 2.3-4.7 [id number] 12:57:00* Test Item Value Reference Range Comments MAGNESIUM (BEAKER) (test nadb=944) 2.4 mg/dL 1.6-2.6 BASIC METABOLIC [id number] 12:57:00* Test Item Value Reference Range Comments SODIUM (BEAKER) (test rdir=521) 139 meq/L 136-145 POTASSIUM (BEAKER) (test aejx=214) 4.3 meq/L 3.5-5.1 CHLORIDE (BEAKER) (test cinn=632) 105 meq/L 98-107 CO2 (BEAKER) (test dvqb=993) 22 meq/L 22-29 BLOOD UREA NITROGEN (BEAKER) (test jdti=200) 42 mg/dL 7-21 CREATININE (BEAKER) (test ntsm=484) 1.41 mg/dL 0.57-1.25 GLUCOSE RANDOM (BEAKER) (test vsxm=762) 141 mg/dL 70-105 CALCIUM (BEAKER) (test tjik=114) 8.5 mg/dL 8.4-10.2 EGFR (BEAKER) (test qdws=0231) 39 mL/min/1.73 sq m ESTIMATED GFR IS NOT ACCURATE CREATININE CLEARANCE IN PREDICTING GLOMERULAR FILTRATION RATE. ESTIMATED GFR IS NOT APPLICABLE FOR DIALYSIS PATIENTS. Specimen moderately ictericVANCOMYCIN LEVEL, [id number] 12:56:00* Test Item Value Reference Range Comments VANCOMYCIN TROUGH (BEAKER) (test hemf=059) 14.9 ug/mL 10.0-20.0 Before vanc doseRAD, ABDOMEN/KUB, 1 VIEW [id number] 12:56:00Reason for exam:-> Corpack insertedFINAL REPORT Abdomen one view shows feeding tube extending to the pyloric region perhaps proximal duodenum. NG suction tube extends to the gastric fundus. Signed: Hyacinth [place] Verified Date/Time: 02/07/2018 12:56:07 Reading Location: [facility] Radiology Reading Room IC ACID, ARTERIAL, WHOLE [id number] 12:49:00* Test Item Value Reference Range Comments LACTATE BLOOD ARTERIAL (2) (BEAKER) (test yyfl=4011) 1.7 mmol/L 0.5-2.2 Effective 03/10/2016: Units/Reference Range ChangeNew: 0.5-2.2 mmol/L Previous: 5 -20 mg/dLSpecimen moderately ictericPLATELET [id number] 12:42:00* Test Item Value Reference Range Comments PLATELET COUNT (BEAKER) (test npso=400) 81 K/CU MM 150-450 HEMOGLOBIN AND [id number] 12:42:00* Test Item Value Reference Range Comments HEMOGLOBIN (BEAKER) (test ghot=884) 8.6 GM/DL 11.2-15.7 HEMATOCRIT (BEAKER) (test eszt=207) 25.8 % 34.1-44.9 BLOOD GAS, [id number] 12:15:00* Test Item Value Reference Range Comments PH ARTERIAL (BEAKER) (test omro=835) 7.42 7.35-7.45 PCO2 ARTERIAL (BEAKER) (test smov=368) 37 mmHg 35-45 PO2 ARTERIAL (BEAKER) (test ijwm=497) 68 mmHg 80-90 O2 SATURATION ARTERIAL (BEAKER) (test yvru=397) 94.2 % 96.0-97.0 HCO3 ARTERIAL (BEAKER) (test bzzt=185) 24 mmol/L 21-29 BASE EXCESS ARTERIAL (BEAKER) (test wbxi=845) -0.9 mmol/L -2.0-3.0 PATIENT TEMPERATURE (BEAKER) (test lwwj=1675) 36.7 C FIO2 (BEAKER) (test mzin=1150) 60.0 % GLUCOSE-STAT [id number] 12:15:00* Test Item Value Reference Range Comments GLUCOSE RANDOM (BEAKER) (test iqkn=744) 130 mg/dL 70-110 CALCIUM, [id number] 12:14:00* Test Item Value Reference Range Comments CALCIUM IONIZED (BEAKER) (test gjdw=348) 1.13 mmol/L 1.12-1.27 PH, BLOOD (BEAKER) (test fxwi=2011) 7.41 ANTITHROMBIN [id number] 11:35:00* Test Item Value Reference Range Comments ANTITHROMBIN III ACTIVITY (BEAKER) (test kosd=866) 68.0 % 80.0-120.0 HEPARIN ASSAY - [id number] 11:35:00* Test Item Value Reference Range Comments UNFRACTIONATED HEPARIN-ANTI 10A (BEAKER) (test egmp=1163) < u/ml 0.30-0.70 Recommendations for Monitoring Unfractionated Heparin Therapeutic Range: 0.3-0. 7 u/mL with continuous IV infusionTHROMBOELASTOGRAPH (TEG)2018-02-07 11:31:00* Test Item Value Reference Range Comments TEG ACTIVATED CLOTTING TIME (BEAKER) (test yrxi=1239) 4.2 minutes 4.0-7.0 TEG FIBRINOGEN ACTIVITY (BEAKER) (test xviz=2245) 65.6 degrees 61.0-73.0 TEG PLT. AGGREGATION (BEAKER) (test jory=8499) 58.0 MM 55.0-65.0 TEG FIBRINOLYSIS (BEAKER) (test hgax=1803) 0.2 % 0.0-5.0 TGH ACTIVATED CLOTTING TIME (BEAKER) (test dauc=7751) 3.4 minutes 4.0-7.0 TGH FIBRINOGEN ACTIVITY (BEAKER) (test hneo=9546) 65.0 degrees 61.0-73.0 TGH PLT. AGGREGATION (BEAKER) (test tyar=2572) 41.3 MM 55.0-65.0 TGH FIBRINOLYSIS (BEAKER) (test tvyh=9433) 0.0 % 0.0-5.0 HEPARIN ASSAY - [id number] 10:09:00* Test Item Value Reference Range Comments UNFRACTIONATED HEPARIN-ANTI 10A (BEAKER) (test cdkv=9002) < u/ml 0.30-0.70 Recommendations for Monitoring Unfractionated Heparin Therapeutic Range: 0.3-0. 7 u/mL with continuous IV [id number] 09:42:00* Test Item Value Reference Range Comments PARTIAL THROMBOPLASTIN TIME (BEAKER) (test ykqy=371) 31.4 seconds 22.5-36.0 [id number] 08:35:00* Test Item Value Reference Range Comments FIBRINOGEN LEVEL (BEAKER) (test rayc=916) 280 mg/dl 225-434 [id number] 08:35:00* Test Item Value Reference Range Comments PARTIAL THROMBOPLASTIN TIME (BEAKER) (test mywc=055) 31.5 seconds 22.5-36.0 PROTHROMBIN TIME/[id number] 08:34:00* Test Item Value Reference Range Comments PROTIME (BEAKER) (test psff=919) 17.5 seconds 11.7-14.7 INR (BEAKER) (test httf=866) 1.4 <=5.9 RECOMMENDED COUMADIN/WARFARIN INR THERAPY RANGESSTANDARD DOSE: 2.0 - 3.0 Inclu connie: PROPHYLAXIS for venous thrombosis, systemic embolization; TREATMENT for lupis ous thrombosis and/or pulmonary embolus.HIGH RISK: Target INR is 2.5-3.5 for pat ients with mechanical heart valves.[id number] 08:09:00* Test Item Value Reference Range Comments POTASSIUM (BEAKER) (test lnqh=753) 4.2 meq/L 3.5-5.1 [id number] 08:09:00* Test Item Value Reference Range Comments MAGNESIUM (BEAKER) (test yyxl=715) 2.1 mg/dL 1.6-2.6 [id number] 08:09:00* Test Item Value Reference Range Comments PHOSPHORUS (BEAKER) (test driy=554) 3.1 mg/dL 2.3-4.7 BASIC METABOLIC [id number] 08:09:00* Test Item Value Reference Range Comments SODIUM (BEAKER) (test agqp=259) 139 meq/L 136-145 POTASSIUM (BEAKER) (test yhfl=038) 4.2 meq/L 3.5-5.1 CHLORIDE (BEAKER) (test xwua=161) 104 meq/L 98-107 CO2 (BEAKER) (test agli=555) 20 meq/L 22-29 BLOOD UREA NITROGEN (BEAKER) (test cwwv=308) 41 mg/dL 7-21 CREATININE (BEAKER) (test hogu=721) 1.29 mg/dL 0.57-1.25 GLUCOSE RANDOM (BEAKER) (test fbbx=306) 163 mg/dL 70-105 CALCIUM (BEAKER) (test bzat=882) 8.2 mg/dL 8.4-10.2 EGFR (BEAKER) (test bdla=0477) 43 mL/min/1.73 sq m ESTIMATED GFR IS NOT ACCURATE CREATININE CLEARANCE IN PREDICTING GLOMERULAR FILTRATION RATE. ESTIMATED GFR IS NOT APPLICABLE FOR DIALYSIS PATIENTS. Specimen moderately ictericLACTIC ACID, ARTERIAL, WHOLE [id number] 08:07:00 * Test Item Value Reference Range Comments LACTATE BLOOD ARTERIAL (2) (BEAKER) (test oguk=7445) 2.3 mmol/L 0.5-2.2 Effective 03/10/2016: Units/Reference Range ChangeNew: 0.5-2.2 mmol/L Previous: 5 -20 mg/dLSpecimen moderately ictericPLATELET [id number] 07:53:00* Test Item Value Reference Range Comments PLATELET COUNT (BEAKER) (test bfbr=651) 76 K/CU MM 150-450 HEMOGLOBIN AND [id number] 07:53:00* Test Item Value Reference Range Comments HEMOGLOBIN (BEAKER) (test sxim=444) 8.7 GM/DL 11.2-15.7 HEMATOCRIT (BEAKER) (test vewo=143) 25.6 % 34.1-44.9 BLOOD GAS, [id number] 07:22:00* Test Item Value Reference Range Comments PH ARTERIAL (BEAKER) (test fpay=294) 7.41 7.35-7.45 PCO2 ARTERIAL (BEAKER) (test knbx=464) 35 mmHg 35-45 PO2 ARTERIAL (BEAKER) (test obqd=384) 75 mmHg 80-90 O2 SATURATION ARTERIAL (BEAKER) (test dvaq=356) 95.2 % 96.0-97.0 HCO3 ARTERIAL (BEAKER) (test hrfi=970) 22 mmol/L 21-29 BASE EXCESS ARTERIAL (BEAKER) (test anhn=719) -2.2 mmol/L -2.0-3.0 PATIENT TEMPERATURE (BEAKER) (test peoy=9281) 37.2 C FIO2 (BEAKER) (test ckul=8775) 60.0 % GLUCOSE-STAT [id number] 07:22:00* Test Item Value Reference Range Comments GLUCOSE RANDOM (BEAKER) (test ygzy=967) 159 mg/dL 70-110 CALCIUM, [id number] 07:22:00* Test Item Value Reference Range Comments CALCIUM IONIZED (BEAKER) (test yptg=976) 1.09 mmol/L 1.12-1.27 PH, BLOOD (BEAKER) (test yeiu=4750) 7.42 THROMBOELASTOGRAPH (TEG)2018-02-07 06:16:00* Test Item Value Reference Range Comments TEG ACTIVATED CLOTTING TIME (BEAKER) (test aagx=7720) 9.1 minutes 4.0-7.0 TEG FIBRINOGEN ACTIVITY (BEAKER) (test stra=3673) 54.4 degrees 61.0-73.0 TEG PLT. AGGREGATION (BEAKER) (test acuy=8356) 50.6 MM 55.0-65.0 TEG FIBRINOLYSIS (BEAKER) (test vjoi=3458) 0.0 % 0.0-5.0 TGH ACTIVATED CLOTTING TIME (BEAKER) (test miqh=1771) 6.8 minutes 4.0-7.0 TGH FIBRINOGEN ACTIVITY (BEAKER) (test bssv=2685) 62.6 degrees 61.0-73.0 TGH PLT. AGGREGATION (BEAKER) (test tuub=7702) 50.5 MM 55.0-65.0 TGH FIBRINOLYSIS (BEAKER) (test hzzc=5080) 0.0 % 0.0-5.0 BLOOD GAS, [id number] 05:46:00* Test Item Value Reference Range Comments PH ARTERIAL (BEAKER) (test npbm=995) 7.42 7.35-7.45 PCO2 ARTERIAL (BEAKER) (test oyqg=620) 34 mmHg 35-45 PO2 ARTERIAL (BEAKER) (test urel=617) 82 mmHg 80-90 O2 SATURATION ARTERIAL (BEAKER) (test vxqb=635) 96.4 % 96.0-97.0 HCO3 ARTERIAL (BEAKER) (test cnue=860) 22 mmol/L 21-29 BASE EXCESS ARTERIAL (BEAKER) (test ello=588) -2.5 mmol/L -2.0-3.0 PATIENT TEMPERATURE (BEAKER) (test toen=8634) 36.9 C FIO2 (BEAKER) (test fvfg=2984) 60.0 % GLUCOSE-STAT [id number] 05:46:00* Test Item Value Reference Range Comments GLUCOSE RANDOM (BEAKER) (test ichf=355) 170 mg/dL 70-110 HGB/HCT (H&H) - STAT [id number] 05:46:00* Test Item Value Reference Range Comments HEMOGLOBIN (BEAKER) (test feus=102) 9.3 g/dL 12.0-15.0 HEMATOCRIT (BEAKER) (test jvsy=187) 27.0 % 36.0-45.0 SODIUM NA-STAT [id number] 05:44:00* Test Item Value Reference Range Comments SODIUM (BEAKER) (test fvcj=489) 135 meq/L 135-148 POTASSIUM-STAT [id number] 05:44:00* Test Item Value Reference Range Comments POTASSIUM (BEAKER) (test aopj=247) 3.6 meq/L 3.6-5.5 BLOOD GAS, [id number] 05:00:00* Test Item Value Reference Range Comments PH ARTERIAL (BEAKER) (test svxq=611) 7.37 7.35-7.45 PCO2 ARTERIAL (BEAKER) (test tpdw=025) 41 mmHg 35-45 PO2 ARTERIAL (BEAKER) (test knzl=235) 529 mmHg 80-90 O2 SATURATION ARTERIAL (BEAKER) (test bpms=727) 99.9 % 96.0-97.0 HCO3 ARTERIAL (BEAKER) (test rxto=327) 23 mmol/L 21-29 BASE EXCESS ARTERIAL (BEAKER) (test oyfc=597) -2.5 mmol/L -2.0-3.0 PATIENT TEMPERATURE (BEAKER) (test vnmd=5377) 37.0 C FIO2 (BEAKER) (test eacl=7110) 100.0 % RAD, CHEST, 1 VIEW, NON [id number] 04:43:00Reason for exam:-> ECMO/intubatedShould this be performed at the bedside?->YesIs the patient ?->UnknownFINAL REPORT CLINICAL INDICATION: Support lines. Comparison: 02/06/2018 The cardiomediastinal contours are stable. Central pulmonary vascular congestion and left greater than right parenchymal and pleural opacities are similar to previous. There is no pneumothorax. A femoral ECMO catheter has been exchanged for a right IJ ECMO catheter. A left IJ PA catheter tip overlies the left hilum. A mediastinal drain has been removed as has a right chest tube. Support lines are otherwise stable. Signed: Abel Schwartz MDReport Verified Date/Time: 02/07/2018 04:43:01 Reading Location: [address] Reading Room IN [place] [id number] 04:20:00* Test Item Value Reference Range Comments FIBRIN SOLUBLE MONOMER (BEAKER) (test wexr=2120) POS 1+ [id number] 03:58:00* Test Item Value Reference Range Comments D-DIMER QUANTITATIVE (BEAKER) (test mexl=648) 9.80 MG/L FEU <0.50 Intended Use: The D-Dimer Assay can be used to aid in the diagnosis of Deep Vein Thrombosis (DVT) and Pulmonary Embolism Disease (PED).In patients with low pre- test probability, various studies concerning STA Liatest D-dimer test have repor emily that with a cutoff value of 0.50 MG/L FEU, the Negative Predictive Value (ELEVATED WORK PLATFORM OPERATOR V) regarding the exclusion of thrombosis is within 95-100% range.FIBRINOGEN 2018-02-07 03:50:00* Test Item Value Reference Range Comments FIBRINOGEN LEVEL (BEAKER) (test jmqa=762) 284 mg/dl 225-434 [id number] 03:50:00* Test Item Value Reference Range Comments PARTIAL THROMBOPLASTIN TIME (BEAKER) (test ifec=925) 34.6 seconds 22.5-36.0 PROTHROMBIN TIME/[id number] 03:48:00* Test Item Value Reference Range Comments PROTIME (BEAKER) (test bdqc=725) 18.7 seconds 11.7-14.7 INR (BEAKER) (test nahp=148) 1.6 <=5.9 RECOMMENDED COUMADIN/WARFARIN INR THERAPY RANGESSTANDARD DOSE: 2.0 - 3.0 Inclu connie: PROPHYLAXIS for venous thrombosis, systemic embolization; TREATMENT for lupis ous thrombosis and/or pulmonary embolus.HIGH RISK: Target INR is 2.5-3.5 for pat ients with mechanical heart valves.CBC (HEMOGRAM ONLY)2018-02-07 03:46:00* Test Item Value Reference Range Comments WHITE BLOOD CELL COUNT (BEAKER) (test tioi=096) 12.9 K/ L 3.5-10.5 RED BLOOD CELL COUNT (BEAKER) (test llmz=094) 3.01 M/ L 3.93-5.22 HEMOGLOBIN (BEAKER) (test srjg=369) 8.9 GM/DL 11.2-15.7 HEMATOCRIT (BEAKER) (test pgss=449) 26.5 % 34.1-44.9 MEAN CORPUSCULAR VOLUME (BEAKER) (test mbwo=458) 88.0 fL 79.4-94.8 MEAN CORPUSCULAR HEMOGLOBIN (BEAKER) (test pqdx=893) 29.6 pg 25.6-32.2 MEAN CORPUSCULAR HEMOGLOBIN CONC (BEAKER) (test ycfv=018) 33.6 GM/DL 32.2-35.5 RED CELL DISTRIBUTION WIDTH (BEAKER) (test wnod=435) 15.1 % 11.7-14.4 PLATELET COUNT (BEAKER) (test ngod=432) 66 K/CU MM 150-450 MEAN PLATELET VOLUME (BEAKER) (test hurr=726) 12.0 fL 9.4-12.3 NUCLEATED RED BLOOD CELLS (BEAKER) (test bmcr=383) 1 /100 WBC 0-0 CBC (HEMOGRAM ONLY)2018-02-07 03:46:00* Test Item Value Reference Range Comments WHITE BLOOD CELL COUNT (BEAKER) (test ywoq=967) 13.0 K/ L 3.5-10.5 RED BLOOD CELL COUNT (BEAKER) (test ixnr=473) 3.01 M/ L 3.93-5.22 HEMOGLOBIN (BEAKER) (test fqjh=312) 8.9 GM/DL 11.2-15.7 HEMATOCRIT (BEAKER) (test kria=361) 26.6 % 34.1-44.9 MEAN CORPUSCULAR VOLUME (BEAKER) (test cxjk=001) 88.4 fL 79.4-94.8 MEAN CORPUSCULAR HEMOGLOBIN (BEAKER) (test jqhn=392) 29.6 pg 25.6-32.2 MEAN CORPUSCULAR HEMOGLOBIN CONC (BEAKER) (test wiog=859) 33.5 GM/DL 32.2-35.5 RED CELL DISTRIBUTION WIDTH (BEAKER) (test uieh=038) 15.0 % 11.7-14.4 PLATELET COUNT (BEAKER) (test dyot=353) 70 K/CU MM 150-450 MEAN PLATELET VOLUME (BEAKER) (test ombk=898) 11.8 fL 9.4-12.3 NUCLEATED RED BLOOD CELLS (BEAKER) (test xnne=040) 2 /100 WBC 0-0 [id number] 03:42:00* Test Item Value Reference Range Comments MAGNESIUM (BEAKER) (test ywuv=986) 2.2 mg/dL 1.6-2.6 BASIC METABOLIC [id number] 03:42:00* Test Item Value Reference Range Comments SODIUM (BEAKER) (test ziqd=151) 138 meq/L 136-145 POTASSIUM (BEAKER) (test iots=469) 4.4 meq/L 3.5-5.1 CHLORIDE (BEAKER) (test egxa=700) 104 meq/L 98-107 CO2 (BEAKER) (test xydn=868) 21 meq/L 22-29 BLOOD UREA NITROGEN (BEAKER) (test swvt=803) 39 mg/dL 7-21 CREATININE (BEAKER) (test bcvs=315) 1.20 mg/dL 0.57-1.25 GLUCOSE RANDOM (BEAKER) (test hwll=917) 173 mg/dL 70-105 CALCIUM (BEAKER) (test idfa=899) 8.2 mg/dL 8.4-10.2 EGFR (BEAKER) (test suhd=4348) 47 mL/min/1.73 sq m ESTIMATED GFR IS NOT ACCURATE CREATININE CLEARANCE IN PREDICTING GLOMERULAR FILTRATION RATE. ESTIMATED GFR IS NOT APPLICABLE FOR DIALYSIS PATIENTS. Specimen moderately ictericHEPATIC FUNCTION [id number] 03:42:00* Test Item Value Reference Range Comments TOTAL PROTEIN (BEAKER) (test sfyl=222) 4.9 gm/dL 6.0-8.3 ALBUMIN (BEAKER) (test vyjs=2071) 3.4 g/dL 3.5-5.0 BILIRUBIN TOTAL (BEAKER) (test ggku=326) 5.7 mg/dL 0.2-1.2 BILIRUBIN DIRECT (BEAKER) (test gzdh=129) 3.8 mg/dL 0.1-0.5 ALKALINE PHOSPHATASE (BEAKER) (test dhmn=564) 115 U/L 40-150 AST (SGOT) (BEAKER) (test veqq=992) 36 U/L 5-34 ALT (SGPT) (BEAKER) (test kdvn=526) 39 U/L 6-55 Specimen moderately ictericLACTATE DEHYDROGENASE (LDH)2018-02-07 03:42:00* Test Item Value Reference Range Comments LACTATE DEHYDROGENASE (BEAKER) (test clyv=747) 509 U/L 125-220 BLOOD GAS, [id number] 03:37:00* Test Item Value Reference Range Comments PH ARTERIAL (BEAKER) (test obbe=737) 7.42 7.35-7.45 PCO2 ARTERIAL (BEAKER) (test kwqb=659) 33 mmHg 35-45 PO2 ARTERIAL (BEAKER) (test pewj=637) 84 mmHg 80-90 O2 SATURATION ARTERIAL (BEAKER) (test hmad=980) 96.7 % 96.0-97.0 HCO3 ARTERIAL (BEAKER) (test mscw=161) 21 mmol/L 21-29 BASE EXCESS ARTERIAL (BEAKER) (test gtxk=272) -3.1 mmol/L -2.0-3.0 PATIENT TEMPERATURE (BEAKER) (test ywzo=7435) 36.8 C FIO2 (BEAKER) (test tdoe=5435) 60.0 % GLUCOSE-STAT [id number] 03:37:00* Test Item Value Reference Range Comments GLUCOSE RANDOM (BEAKER) (test ahxn=267) 161 mg/dL 70-110 HEMATOCRIT-STAT [id number] 03:37:00* Test Item Value Reference Range Comments HEMATOCRIT (BEAKER) (test tald=967) 29.0 % 36.0-45.0 HEMOGLOBIN-STAT [id number] 03:37:00* Test Item Value Reference Range Comments HEMOGLOBIN (BEAKER) (test fvrj=107) 9.8 g/dL 12.0-15.0 CALCIUM, [id number] 03:37:00* Test Item Value Reference Range Comments CALCIUM IONIZED (BEAKER) (test mfgj=892) 1.06 mmol/L 1.12-1.27 PH, BLOOD (BEAKER) (test jntp=1032) 7.42 LACTIC ACID, ARTERIAL, WHOLE [id number] 03:36:00* Test Item Value Reference Range Comments LACTATE BLOOD ARTERIAL (2) (BEAKER) (test dpof=9898) 1.9 mmol/L 0.5-2.2 Effective 03/10/2016: Units/Reference Range ChangeNew: 0.5-2.2 mmol/L Previous: 5 -20 mg/dLSpecimen moderately ictericOXYGEN SATURATION, [id number] 03:34:00* Test Item Value Reference Range Comments O2 SATURATION (MEASURED) (BEAKER) (test nnoc=4098) 91.3 % POTASSIUM-STAT [id number] 03:27:00* Test Item Value Reference Range Comments POTASSIUM (BEAKER) (test shag=967) 4.2 meq/L 3.6-5.5 HEMOGLOBIN-STAT [id number] 01:27:00* Test Item Value Reference Range Comments HEMOGLOBIN (BEAKER) (test caic=129) 6.9 g/dL 12.0-15.0 HEMATOCRIT-STAT [id number] 01:27:00* Test Item Value Reference Range Comments HEMATOCRIT (BEAKER) (test qmri=905) 20.0 % 36.0-45.0 [id number] 00:57:00* Test Item Value Reference Range Comments FIBRINOGEN LEVEL (BEAKER) (test bdca=186) 282 mg/dl 225-434 [id number] 00:57:00* Test Item Value Reference Range Comments PARTIAL THROMBOPLASTIN TIME (BEAKER) (test qngj=813) 30.2 seconds 22.5-36.0 PROTHROMBIN [id number] 00:56:00* Test Item Value Reference Range Comments PROTIME (BEAKER) (test qxzw=635) 18.6 seconds 11.7-14.7 INR (BEAKER) (test oysd=139) 1.6 <=5.9 RECOMMENDED COUMADIN/WARFARIN INR THERAPY RANGESSTANDARD DOSE: 2.0 - 3.0 Inclu connie: PROPHYLAXIS for venous thrombosis, systemic embolization; TREATMENT for lupis ous thrombosis and/or pulmonary embolus.HIGH RISK: Target INR is 2.5-3.5 for pat ients with mechanical heart valves.BASIC METABOLIC [id number] 00:40:00* Test Item Value Reference Range Comments SODIUM (BEAKER) (test gjgo=748) 138 meq/L 136-145 POTASSIUM (BEAKER) (test agen=257) 3.7 meq/L 3.5-5.1 CHLORIDE (BEAKER) (test vbvo=897) 103 meq/L 98-107 CO2 (BEAKER) (test dvbx=925) 22 meq/L 22-29 BLOOD UREA NITROGEN (BEAKER) (test fsnd=832) 39 mg/dL 7-21 CREATININE (BEAKER) (test ihsz=251) 1.15 mg/dL 0.57-1.25 GLUCOSE RANDOM (BEAKER) (test iifc=548) 155 mg/dL 70-105 CALCIUM (BEAKER) (test gmyl=580) 8.6 mg/dL 8.4-10.2 EGFR (BEAKER) (test myah=5674) 50 mL/min/1.73 sq m ESTIMATED GFR IS NOT ACCURATE CREATININE CLEARANCE IN PREDICTING GLOMERULAR FILTRATION RATE. ESTIMATED GFR IS NOT APPLICABLE FOR DIALYSIS PATIENTS. Specimen moderately ictericLACTIC ACID, ARTERIAL, WHOLE [id number] 00:36:00 * Test Item Value Reference Range Comments LACTATE BLOOD ARTERIAL (2) (BEAKER) (test bkdp=8106) 2.1 mmol/L 0.5-2.2 Effective 03/10/2016: Units/Reference Range ChangeNew: 0.5-2.2 mmol/L Previous: 5 -20 mg/dLSpecimen moderately ictericOXYGEN SATURATION, [id number] 00:28:00* Test Item Value Reference Range Comments O2 SATURATION (MEASURED) (BEAKER) (test friy=1643) 84.7 % BLOOD GAS, [id number] 00:28:00* Test Item Value Reference Range Comments PH ARTERIAL (BEAKER) (test xyps=653) 7.43 7.35-7.45 PCO2 ARTERIAL (BEAKER) (test lwii=429) 36 mmHg 35-45 PO2 ARTERIAL (BEAKER) (test mswp=535) 80 mmHg 80-90 O2 SATURATION ARTERIAL (BEAKER) (test pvny=949) 96.3 % 96.0-97.0 HCO3 ARTERIAL (BEAKER) (test yabg=121) 23 mmol/L 21-29 BASE EXCESS ARTERIAL (BEAKER) (test ncjk=506) -1.2 mmol/L -2.0-3.0 PATIENT TEMPERATURE (BEAKER) (test hkwp=6804) 36.9 C FIO2 (BEAKER) (test qiwx=8660) 60.0 % PLATELET [id number] 00:27:00* Test Item Value Reference Range Comments PLATELET COUNT (BEAKER) (test tngz=514) 64 K/CU MM 150-450 PROTHROMBIN [id number] 21:49:00* Test Item Value Reference Range Comments PROTIME (BEAKER) (test qiii=593) 18.0 seconds 11.7-14.7 INR (BEAKER) (test eqxr=040) 1.5 <=5.9 RECOMMENDED COUMADIN/WARFARIN INR THERAPY RANGESSTANDARD DOSE: 2.0 - 3.0 Inclu connie: PROPHYLAXIS for venous thrombosis, systemic embolization; TREATMENT for lupis ous thrombosis and/or pulmonary embolus.HIGH RISK: Target INR is 2.5-3.5 for pat ients with mechanical heart valves.[id number] 21:49:00* Test Item Value Reference Range Comments FIBRINOGEN LEVEL (BEAKER) (test kjpp=142) 342 mg/dl 225-434 [id number] 21:49:00* Test Item Value Reference Range Comments PARTIAL THROMBOPLASTIN TIME (BEAKER) (test phrz=098) 36.1 seconds 22.5-36.0 PLATELET [id number] 21:03:00* Test Item Value Reference Range Comments PLATELET COUNT (BEAKER) (test jrpv=655) 74 K/CU MM 150-450 BLOOD GAS, [id number] 20:46:00* Test Item Value Reference Range Comments PH ARTERIAL (BEAKER) (test afbu=559) 7.43 7.35-7.45 PCO2 ARTERIAL (BEAKER) (test qhgn=040) 36 mmHg 35-45 PO2 ARTERIAL (BEAKER) (test bteg=173) 209 mmHg 80-90 O2 SATURATION ARTERIAL (BEAKER) (test laxz=396) 99.4 % 96.0-97.0 HCO3 ARTERIAL (BEAKER) (test gtva=415) 23 mmol/L 21-29 BASE EXCESS ARTERIAL (BEAKER) (test rxik=610) -1.2 mmol/L -2.0-3.0 PATIENT TEMPERATURE (BEAKER) (test uurd=4141) 36.8 C FIO2 (BEAKER) (test kgik=9724) 60.0 % THROMBOELASTOGRAPH (TEG)2018-02-06 19:33:00* Test Item Value Reference Range Comments TEG ACTIVATED CLOTTING TIME (BEAKER) (test ndzj=9965) minutes 4.0-7.0 No clot detected TGH ACTIVATED CLOTTING TIME (BEAKER) (test ftlw=0028) 11.8 minutes 4.0-7.0 TGH FIBRINOGEN ACTIVITY (BEAKER) (test lkie=8530) 57.3 degrees 61.0-73.0 T[facility] PLT. AGGREGATION (BEAKER) (test odup=2889) 51.0 MM 55.0-65.0 TGH FIBRINOLYSIS (BEAKER) (test wilq=3401) 0.0 % 0.0-5.0 [id number] 19:08:00* Test Item Value Reference Range Comments PARTIAL THROMBOPLASTIN TIME (BEAKER) (test cuoi=718) > seconds 22.5-36.0 [id number] 18:58:00* Test Item Value Reference Range Comments SODIUM (BEAKER) (test uslo=862) 138 meq/L 136-145 BASIC METABOLIC [id number] 18:58:00* Test Item Value Reference Range Comments SODIUM (BEAKER) (test hzth=545) 138 meq/L 136-145 POTASSIUM (BEAKER) (test gkym=240) 4.0 meq/L 3.5-5.1 CHLORIDE (BEAKER) (test mnnr=052) 104 meq/L 98-107 CO2 (BEAKER) (test ebud=025) 23 meq/L 22-29 BLOOD UREA NITROGEN (BEAKER) (test susk=799) 36 mg/dL 7-21 CREATININE (BEAKER) (test bydu=391) 1.04 mg/dL 0.57-1.25 GLUCOSE RANDOM (BEAKER) (test xqay=133) 166 mg/dL 70-105 CALCIUM (BEAKER) (test wdsf=379) 8.1 mg/dL 8.4-10.2 EGFR (BEAKER) (test orgg=5057) 56 mL/min/1.73 sq m ESTIMATED GFR IS NOT ACCURATE CREATININE CLEARANCE IN PREDICTING GLOMERULAR FILTRATION RATE. ESTIMATED GFR IS NOT APPLICABLE FOR DIALYSIS PATIENTS. Specimen moderately ictericLACTIC ACID, ARTERIAL, WHOLE [id number] 18:55:00 * Test Item Value Reference Range Comments LACTATE BLOOD ARTERIAL (2) (BEAKER) (test mwby=8261) 1.8 mmol/L 0.5-2.2 Effective 03/10/2016: Units/Reference Range ChangeNew: 0.5-2.2 mmol/L Previous: 5 -20 mg/dLSpecimen slightly ictericPROTHROMBIN [id number] 18:50:00* Test Item Value Reference Range Comments PROTIME (BEAKER) (test zkcs=271) 19.1 seconds 11.7-14.7 INR (BEAKER) (test kxaz=139) 1.6 <=5.9 RECOMMENDED COUMADIN/WARFARIN INR THERAPY RANGESSTANDARD DOSE: 2.0 - 3.0 Inclu connie: PROPHYLAXIS for venous thrombosis, systemic embolization; TREATMENT for lupis ous thrombosis and/or pulmonary embolus.HIGH RISK: Target INR is 2.5-3.5 for pat ients with mechanical heart valves.[id number] 18:50:00* Test Item Value Reference Range Comments FIBRINOGEN LEVEL (BEAKER) (test azuu=627) 351 mg/dl 225-434 PLATELET [id number] 18:33:00* Test Item Value Reference Range Comments PLATELET COUNT (BEAKER) (test mxrq=353) 61 K/CU MM 150-450 Baseline and daily starting prior to initiation of heparin infusionHEMOGLOBIN AND [id number] 18:33:00* Test Item Value Reference Range Comments HEMOGLOBIN (BEAKER) (test kmkq=617) 8.6 GM/DL 11.2-15.7 HEMATOCRIT (BEAKER) (test ekro=538) 26.0 % 34.1-44.9 Baseline and daily starting prior to initiation of heparin infusionCBC (HEMOGRAM ONLY)2018-02-06 18:33:00* Test Item Value Reference Range Comments WHITE BLOOD CELL COUNT (BEAKER) (test swiy=025) 18.9 K/ L 3.5-10.5 RED BLOOD CELL COUNT (BEAKER) (test bfef=445) 2.96 M/ L 3.93-5.22 HEMOGLOBIN (BEAKER) (test dcto=245) 8.6 GM/DL 11.2-15.7 HEMATOCRIT (BEAKER) (test iqju=786) 26.0 % 34.1-44.9 MEAN CORPUSCULAR VOLUME (BEAKER) (test jdfb=360) 87.8 fL 79.4-94.8 MEAN CORPUSCULAR HEMOGLOBIN (BEAKER) (test psnx=573) 29.1 pg 25.6-32.2 MEAN CORPUSCULAR HEMOGLOBIN CONC (BEAKER) (test ezhn=632) 33.1 GM/DL 32.2-35.5 RED CELL DISTRIBUTION WIDTH (BEAKER) (test dxna=039) 15.9 % 11.7-14.4 PLATELET COUNT (BEAKER) (test dhao=421) 61 K/CU MM 150-450 MEAN PLATELET VOLUME (BEAKER) (test yira=055) 11.4 fL 9.4-12.3 NUCLEATED RED BLOOD CELLS (BEAKER) (test mhoo=471) 0 /100 WBC 0-0 OXYGEN SATURATION, [id number] 18:28:00* Test Item Value Reference Range Comments O2 SATURATION (MEASURED) (BEAKER) (test dkiv=5566) 99.5 % BLOOD GAS, [id number] 18:28:00* Test Item Value Reference Range Comments PH ARTERIAL (BEAKER) (test ayzb=422) 7.38 7.35-7.45 PCO2 ARTERIAL (BEAKER) (test krbr=376) 40 mmHg 35-45 PO2 ARTERIAL (BEAKER) (test nkpj=703) 331 mmHg 80-90 O2 SATURATION ARTERIAL (BEAKER) (test qivf=299) 99.7 % 96.0-97.0 HCO3 ARTERIAL (BEAKER) (test oggx=538) 23 mmol/L 21-29 BASE EXCESS ARTERIAL (BEAKER) (test vgrq=837) -1.9 mmol/L -2.0-3.0 PATIENT TEMPERATURE (BEAKER) (test reia=5448) 36.5 C FIO2 (BEAKER) (test adsx=4122) 100.0 % [id number] 17:46:00* Test Item Value Reference Range Comments ACTIVATED CLOTTING TIME (BEAKER) (test jgzo=281) 191 sec TESTED AT [facility] [address] [facility] [address] [id number] 17:46:00* Test Item Value Reference Range Comments ACTIVATED CLOTTING TIME (BEAKER) (test yqmk=831) 125 sec TESTED AT [place] [id number] [facility] [address] BLOOD GAS, [id number] 17:20:00* Test Item Value Reference Range Comments PH ARTERIAL (BEAKER) (test hdrn=298) 7.40 7.35-7.45 PCO2 ARTERIAL (BEAKER) (test umlh=645) 35 mmHg 35-45 PO2 ARTERIAL (BEAKER) (test pjuj=479) 278 mmHg 80-90 O2 SATURATION ARTERIAL (BEAKER) (test ikjo=669) 99.7 % 96.0-97.0 HCO3 ARTERIAL (BEAKER) (test lmle=069) 22 mmol/L 21-29 BASE EXCESS ARTERIAL (BEAKER) (test faac=683) -3.2 mmol/L -2.0-3.0 PATIENT TEMPERATURE (BEAKER) (test wjnt=5297) 36.0 C FIO2 (BEAKER) (test ladk=1694) 60.0 % BLOOD GAS, [id number] 14:52:00* Test Item Value Reference Range Comments PH ARTERIAL (BEAKER) (test njvz=018) 7.34 7.35-7.45 PCO2 ARTERIAL (BEAKER) (test izvv=957) 47 mmHg 35-45 PO2 ARTERIAL (BEAKER) (test ilit=118) 48 mmHg 80-90 O2 SATURATION ARTERIAL (BEAKER) (test tgka=903) 83.6 % 96.0-97.0 HCO3 ARTERIAL (BEAKER) (test awjy=376) 25 mmol/L 21-29 BASE EXCESS ARTERIAL (BEAKER) (test phsa=216) -0.9 mmol/L -2.0-3.0 PATIENT TEMPERATURE (BEAKER) (test gjyi=0821) 35.9 C FIO2 (BEAKER) (test jkmf=0174) 100.0 % SODIUM NA-STAT [id number] 14:52:00* Test Item Value Reference Range Comments SODIUM (BEAKER) (test rmnt=067) 133 meq/L 135-148 POTASSIUM-STAT [id number] 14:52:00* Test Item Value Reference Range Comments POTASSIUM (BEAKER) (test qvxa=272) 3.1 meq/L 3.6-5.5 GLUCOSE-STAT [id number] 14:52:00* Test Item Value Reference Range Comments GLUCOSE RANDOM (BEAKER) (test ojze=374) 136 mg/dL 70-110 HGB/HCT (H&H) - STAT [id number] 14:52:00* Test Item Value Reference Range Comments HEMOGLOBIN (BEAKER) (test hahv=441) 7.4 g/dL 12.0-15.0 HEMATOCRIT (BEAKER) (test hcfs=190) 22.0 % 36.0-45.0 CALCIUM, [id number] 14:51:00* Test Item Value Reference Range Comments CALCIUM IONIZED (BEAKER) (test knvc=262) 1.46 mmol/L 1.12-1.27 PH, BLOOD (BEAKER) (test eivq=3475) 7.32 CALCIUM, [id number] 14:01:00* Test Item Value Reference Range Comments CALCIUM IONIZED (BEAKER) (test ikbg=519) 1.02 mmol/L 1.12-1.27 PH, BLOOD (BEAKER) (test lcce=5923) 7.39 BLOOD GAS, [id number] 14:00:00* Test Item Value Reference Range Comments PH ARTERIAL (BEAKER) (test nfdr=635) 7.41 7.35-7.45 PCO2 ARTERIAL (BEAKER) (test zyoj=484) 43 mmHg 35-45 PO2 ARTERIAL (BEAKER) (test iviq=533) 57 mmHg 80-90 O2 SATURATION ARTERIAL (BEAKER) (test heba=278) 91.4 % 96.0-97.0 HCO3 ARTERIAL (BEAKER) (test rysr=825) 27 mmol/L 21-29 BASE EXCESS ARTERIAL (BEAKER) (test ytzj=544) 1.4 mmol/L -2.0-3.0 PATIENT TEMPERATURE (BEAKER) (test delb=5807) 35.9 C FIO2 (BEAKER) (test sxuq=4803) 100.0 % POTASSIUM-STAT [id number] 14:00:00* Test Item Value Reference Range Comments POTASSIUM (BEAKER) (test jzmj=799) 3.1 meq/L 3.6-5.5 GLUCOSE-STAT [id number] 14:00:00* Test Item Value Reference Range Comments GLUCOSE RANDOM (BEAKER) (test tzcr=339) 126 mg/dL 70-110 HGB/HCT (H&H) - STAT [id number] 14:00:00* Test Item Value Reference Range Comments HEMOGLOBIN (BEAKER) (test dbge=822) 9.6 g/dL 12.0-15.0 HEMATOCRIT (BEAKER) (test dovy=408) 28.0 % 36.0-45.0 SODIUM NA-STAT [id number] 13:57:00* Test Item Value Reference Range Comments SODIUM (BEAKER) (test svgu=921) 135 meq/L 135-148 BASIC METABOLIC [id number] 12:59:00* Test Item Value Reference Range Comments SODIUM (BEAKER) (test bzsv=743) 137 meq/L 136-145 POTASSIUM (BEAKER) (test rsyb=701) 3.6 meq/L 3.5-5.1 CHLORIDE (BEAKER) (test owkm=225) 100 meq/L 98-107 CO2 (BEAKER) (test krkf=698) 26 meq/L 22-29 BLOOD UREA NITROGEN (BEAKER) (test lrlb=530) 32 mg/dL 7-21 CREATININE (BEAKER) (test crip=838) 1.10 mg/dL 0.57-1.25 GLUCOSE RANDOM (BEAKER) (test jszv=374) 120 mg/dL 70-105 CALCIUM (BEAKER) (test asuj=077) 7.9 mg/dL 8.4-10.2 EGFR (BEAKER) (test yplx=7384) 52 mL/min/1.73 sq m ESTIMATED GFR IS NOT ACCURATE CREATININE CLEARANCE IN PREDICTING GLOMERULAR FILTRATION RATE. ESTIMATED GFR IS NOT APPLICABLE FOR DIALYSIS PATIENTS. Specimen moderately ictericSODIUM NA-STAT [id number] 12:25:00* Test Item Value Reference Range Comments SODIUM (BEAKER) (test zqyt=360) 134 meq/L 135-148 POTASSIUM-STAT [id number] 12:25:00* Test Item Value Reference Range Comments POTASSIUM (BEAKER) (test uosp=044) 3.4 meq/L 3.6-5.5 GLUCOSE-STAT [id number] 12:25:00* Test Item Value Reference Range Comments GLUCOSE RANDOM (BEAKER) (test jdhe=035) 118 mg/dL 70-110 HGB/HCT (H&H) - STAT [id number] 12:25:00* Test Item Value Reference Range Comments HEMOGLOBIN (BEAKER) (test gpez=762) 9.5 g/dL 12.0-15.0 HEMATOCRIT (BEAKER) (test jpxc=590) 28.0 % 36.0-45.0 CALCIUM, [id number] 12:25:00* Test Item Value Reference Range Comments CALCIUM IONIZED (BEAKER) (test ajlt=538) 1.04 mmol/L 1.12-1.27 PH, BLOOD (BEAKER) (test qbpf=2650) 7.50 BLOOD GAS, [id number] 12:24:00* Test Item Value Reference Range Comments PH ARTERIAL (BEAKER) (test budl=976) 7.51 7.35-7.45 PCO2 ARTERIAL (BEAKER) (test heyr=590) 34 mmHg 35-45 PO2 ARTERIAL (BEAKER) (test uyml=221) 42 mmHg 80-90 O2 SATURATION ARTERIAL (BEAKER) (test wqvh=756) 84.1 % 96.0-97.0 HCO3 ARTERIAL (BEAKER) (test dhci=746) 27 mmol/L 21-29 BASE EXCESS ARTERIAL (BEAKER) (test wadl=504) 3.3 mmol/L -2.0-3.0 PATIENT TEMPERATURE (BEAKER) (test xhsv=8064) 36.5 C FIO2 (BEAKER) (test qqfk=0013) 100.0 % FIBRIN SOLUBLE [id number] 11:40:00* Test Item Value Reference Range Comments FIBRIN SOLUBLE MONOMER (BEAKER) (test hjvk=5475) POS 1+ ANTITHROMBIN [id number] 11:35:00* Test Item Value Reference Range Comments ANTITHROMBIN III ACTIVITY (BEAKER) (test ijfu=762) 79.0 % 80.0-120.0 [id number] 11:30:00* Test Item Value Reference Range Comments FIBRINOGEN LEVEL (BEAKER) (test ijmx=869) 399 mg/dl 225-434 [id number] 11:25:00* Test Item Value Reference Range Comments PARTIAL THROMBOPLASTIN TIME (BEAKER) (test dqyr=688) 39.9 seconds 22.5-36.0 PROTHROMBIN TIME/[id number] 11:24:00* Test Item Value Reference Range Comments PROTIME (BEAKER) (test bhia=283) 15.1 seconds 11.7-14.7 INR (BEAKER) (test sdpf=861) 1.2 <=5.9 RECOMMENDED COUMADIN/WARFARIN INR THERAPY RANGESSTANDARD DOSE: 2.0 - 3.0 Inclu connie: PROPHYLAXIS for venous thrombosis, systemic embolization; TREATMENT for lupis ous thrombosis and/or pulmonary embolus.HIGH RISK: Target INR is 2.5-3.5 for pat ients with mechanical heart valves.LACTIC ACID, ARTERIAL, WHOLE [id number] 11:21:00* Test Item Value Reference Range Comments LACTATE BLOOD ARTERIAL (2) (AKER) (test njms=0507) 1.4 mmol/L 0.5-2.2 Effective 03/10/2016: Units/Reference Range ChangeNew: 0.5-2.2 mmol/L Previous: 5 -20 mg/dLSpecimen moderately ictericPLATELET [id number] 11:01:00* Test Item Value Reference Range Comments PLATELET COUNT (BEAKER) (test uuei=515) 64 K/CU MM 150-450 OXYGEN SATURATION, [id number] 10:54:00* Test Item Value Reference Range Comments O2 SATURATION (MEASURED) (BEAKER) (test unfm=2929) 53.6 % SPUTUM CULTURE + GRAM [id number] 08:36:00* Test Item Value Reference Range Comments CULTURE (BEAKER) (test zilu=8294) No growth GRAM STAIN RESULT (BEAKER) (test idue=1797) 1+ WBCs GRAM STAIN RESULT (BEAKER) (test wakt=39019) No organisms seen HEPARIN ASSAY - [id number] 08:04:00* Test Item Value Reference Range Comments UNFRACTIONATED HEPARIN-ANTI 10A (BEAKER) (test knyk=6507) < u/ml 0.30-0.70 Recommendations for Monitoring Unfractionated Heparin Therapeutic Range: 0.3-0. 7 u/mL with continuous IV infusionTHROMBOELASTOGRAPH (TEG)2018-02-06 06:15:00* Test Item Value Reference Range Comments TEG ACTIVATED CLOTTING TIME (BEAKER) (test unhs=5718) 17.8 minutes 4.0-7.0 TEG FIBRINOGEN ACTIVITY (BEAKER) (test merl=1054) 39.1 degrees 61.0-73.0 TEG PLT. AGGREGATION (BEAKER) (test gpqv=7928) 57.2 MM 55.0-65.0 TEG FIBRINOLYSIS (BEAKER) (test bugo=9956) 0.0 % 0.0-5.0 TGH ACTIVATED CLOTTING TIME (BEAKER) (test riko=6948) 7.3 minutes 4.0-7.0 TGH FIBRINOGEN ACTIVITY (BEAKER) (test giye=2757) 59.7 degrees 61.0-73.0 TGH PLT. AGGREGATION (BEAKER) (test ymoy=6457) 58.0 MM 55.0-65.0 TGH FIBRINOLYSIS (BEAKER) (test apwv=6876) 0.0 % 0.0-5.0 [id number] 05:23:00* Test Item Value Reference Range Comments D-DIMER QUANTITATIVE (BEAKER) (test ztqx=700) 17.40 MG/L FEU <0.50 Intended Use: The D-Dimer Assay can be used to aid in the diagnosis of Deep Vein Thrombosis (DVT) and Pulmonary Embolism Disease (PED).In patients with low pre- test probability, various studies concerning STA Liatest D-dimer test have repor emily that with a cutoff value of 0.50 MG/L FEU, the Negative Predictive Value (ELEVATED WORK PLATFORM OPERATOR V) regarding the exclusion of thrombosis is within 95-100% range.FIBRINOGEN 2018-02-06 05:15:00* Test Item Value Reference Range Comments FIBRINOGEN LEVEL (BEAKER) (test bcdp=241) 449 mg/dl 225-434 CALCIUM, [id number] 05:09:00* Test Item Value Reference Range Comments CALCIUM IONIZED (BEAKER) (test aghg=512) 1.06 mmol/L 1.12-1.27 PH, BLOOD (BEAKER) (test kpcp=0333) 7.49 BLOOD GAS, [id number] 05:08:00* Test Item Value Reference Range Comments PH ARTERIAL (BEAKER) (test ygax=256) 7.49 7.35-7.45 PCO2 ARTERIAL (BEAKER) (test fugd=225) 36 mmHg 35-45 PO2 ARTERIAL (BEAKER) (test japv=700) 54 mmHg 80-90 O2 SATURATION ARTERIAL (BEAKER) (test xmfb=610) 91.0 % 96.0-97.0 HCO3 ARTERIAL (BEAKER) (test xclr=861) 27 mmol/L 21-29 BASE EXCESS ARTERIAL (BEAKER) (test dmgq=643) 3.5 mmol/L -2.0-3.0 PATIENT TEMPERATURE (BEAKER) (test qmlx=8857) 36.9 C FIO2 (BEAKER) (test pdqt=9040) 100.0 % OXYGEN SATURATION, [id number] 05:01:00* Test Item Value Reference Range Comments O2 SATURATION (MEASURED) (BEAKER) (test kwfn=2165) 58.1 % [id number] 04:58:00* Test Item Value Reference Range Comments PARTIAL THROMBOPLASTIN TIME (BEAKER) (test hpcg=754) 41.0 seconds 22.5-36.0 [id number] 04:58:00* Test Item Value Reference Range Comments MAGNESIUM (BEAKER) (test ffkv=863) 2.1 mg/dL 1.6-2.6 BASIC METABOLIC [id number] 04:58:00* Test Item Value Reference Range Comments SODIUM (BEAKER) (test nijx=861) 136 meq/L 136-145 POTASSIUM (BEAKER) (test fvby=132) 3.4 meq/L 3.5-5.1 CHLORIDE (BEAKER) (test oewh=461) 100 meq/L 98-107 CO2 (BEAKER) (test ktsx=897) 27 meq/L 22-29 BLOOD UREA NITROGEN (BEAKER) (test pygd=692) 30 mg/dL 7-21 CREATININE (BEAKER) (test lupf=196) 1.20 mg/dL 0.57-1.25 GLUCOSE RANDOM (BEAKER) (test vexl=562) 123 mg/dL 70-105 CALCIUM (BEAKER) (test tiab=789) 8.5 mg/dL 8.4-10.2 EGFR (BEAKER) (test wuey=3608) 47 mL/min/1.73 sq m ESTIMATED GFR IS NOT ACCURATE CREATININE CLEARANCE IN PREDICTING GLOMERULAR FILTRATION RATE. ESTIMATED GFR IS NOT APPLICABLE FOR DIALYSIS PATIENTS. Specimen moderately ictericHEPATIC FUNCTION [id number] 04:58:00* Test Item Value Reference Range Comments TOTAL PROTEIN (BEAKER) (test veua=380) 5.6 gm/dL 6.0-8.3 ALBUMIN (BEAKER) (test vzkz=0239) 3.5 g/dL 3.5-5.0 BILIRUBIN TOTAL (BEAKER) (test waty=527) 6.5 mg/dL 0.2-1.2 BILIRUBIN DIRECT (BEAKER) (test xonf=411) 4.4 mg/dL 0.1-0.5 ALKALINE PHOSPHATASE (BEAKER) (test hekn=091) 194 U/L 40-150 AST (SGOT) (BEAKER) (test zrjf=251) 66 U/L 5-34 ALT (SGPT) (BEAKER) (test iqfu=216) 68 U/L 6-55 Specimen moderately ictericLACTATE DEHYDROGENASE (LDH)2018-02-06 04:58:00* Test Item Value Reference Range Comments LACTATE DEHYDROGENASE (BEAKER) (test tboy=242) 513 U/L 125-220 [id number] 04:56:00* Test Item Value Reference Range Comments PARTIAL THROMBOPLASTIN TIME (BEAKER) (test ulat=424) 41.4 seconds 22.5-36.0 PROTHROMBIN TIME/[id number] 04:56:00* Test Item Value Reference Range Comments PROTIME (BEAKER) (test ivml=295) 15.1 seconds 11.7-14.7 INR (BEAKER) (test byij=506) 1.2 <=5.9 RECOMMENDED COUMADIN/WARFARIN INR THERAPY RANGESSTANDARD DOSE: 2.0 - 3.0 Inclu connie: PROPHYLAXIS for venous thrombosis, systemic embolization; TREATMENT for lupis ous thrombosis and/or pulmonary embolus.HIGH RISK: Target INR is 2.5-3.5 for pat ients with mechanical heart valves.PROTHROMBIN TIME/[id number] 04:55:00* Test Item Value Reference Range Comments PROTIME (BEAKER) (test jjxl=921) 15.1 seconds 11.7-14.7 INR (BEAKER) (test ndhv=903) 1.2 <=5.9 RECOMMENDED COUMADIN/WARFARIN INR THERAPY RANGESSTANDARD DOSE: 2.0 - 3.0 Inclu connie: PROPHYLAXIS for venous thrombosis, systemic embolization; TREATMENT for lupis ous thrombosis and/or pulmonary embolus.HIGH RISK: Target INR is 2.5-3.5 for pat ients with mechanical heart valves.[id number] 04:55:00* Test Item Value Reference Range Comments FIBRINOGEN LEVEL (BEAKER) (test kvmt=895) 416 mg/dl 225-434 PLATELET [id number] 04:54:00* Test Item Value Reference Range Comments PLATELET COUNT (BEAKER) (test yvpm=372) 60 K/CU MM 150-450 CBC (HEMOGRAM ONLY)2018-02-06 04:54:00* Test Item Value Reference Range Comments WHITE BLOOD CELL COUNT (BEAKER) (test zzjh=922) 8.6 K/ L 3.5-10.5 RED BLOOD CELL COUNT (BEAKER) (test imnp=965) 3.09 M/ L 3.93-5.22 HEMOGLOBIN (BEAKER) (test fzcw=346) 9.1 GM/DL 11.2-15.7 HEMATOCRIT (BEAKER) (test ymnn=436) 26.7 % 34.1-44.9 MEAN CORPUSCULAR VOLUME (BEAKER) (test chxb=271) 86.4 fL 79.4-94.8 MEAN CORPUSCULAR HEMOGLOBIN (BEAKER) (test crnz=889) 29.4 pg 25.6-32.2 MEAN CORPUSCULAR HEMOGLOBIN CONC (BEAKER) (test twwv=506) 34.1 GM/DL 32.2-35.5 RED CELL DISTRIBUTION WIDTH (BEAKER) (test xrsu=933) 15.7 % 11.7-14.4 PLATELET COUNT (BEAKER) (test necz=549) 60 K/CU MM 150-450 MEAN PLATELET VOLUME (BEAKER) (test dpke=566) 11.0 fL 9.4-12.3 NUCLEATED RED BLOOD CELLS (BEAKER) (test bhzi=446) 0 /100 WBC 0-0 LACTIC ACID, ARTERIAL, WHOLE [id number] 04:53:00* Test Item Value Reference Range Comments LACTATE BLOOD ARTERIAL (2) (BEAKER) (test bjle=8697) 1.4 mmol/L 0.5-2.2 Effective 03/10/2016: Units/Reference Range ChangeNew: 0.5-2.2 mmol/L Previous: 5 -20 mg/dLSpecimen moderately ictericRAD, CHEST, 1 VIEW, NON [id number] 04:50:00Reason for exam:->ECMO/intubatedShould this be performed at the bedside?->YesIs the patient ?->UnknownFINAL REPORT CLINICAL INDICATION: Support lines. Comparison: 02/05/2018 The cardiomediastinal contours are stable. The lung volumes remain low. Central pulmonary vascular congestion and bilateral parenchymal and left pleural opacities are unchanged. There is no pneumothorax. Support lines are stable. Signed: [facility] Verified Date/Time: 02/06/2018 04:50:08 Reading Location: [address] Reading Room C METABOLIC [id number] 01:45:00* Test Item Value Reference Range Comments SODIUM (BEAKER) (test nwxa=300) 136 meq/L 136-145 POTASSIUM (BEAKER) (test cavl=695) 3.9 meq/L 3.5-5.1 CHLORIDE (BEAKER) (test kwni=496) 102 meq/L 98-107 CO2 (BEAKER) (test vqge=632) 25 meq/L 22-29 BLOOD UREA NITROGEN (BEAKER) (test qofo=361) 30 mg/dL 7-21 CREATININE (BEAKER) (test xntr=053) 1.20 mg/dL 0.57-1.25 GLUCOSE RANDOM (BEAKER) (test qdcb=193) 144 mg/dL 70-105 CALCIUM (BEAKER) (test nieg=562) 8.4 mg/dL 8.4-10.2 EGFR (BEAKER) (test yfrm=9610) 47 mL/min/1.73 sq m ESTIMATED GFR IS NOT ACCURATE CREATININE CLEARANCE IN PREDICTING GLOMERULAR FILTRATION RATE. ESTIMATED GFR IS NOT APPLICABLE FOR DIALYSIS PATIENTS. Specimen moderately ictericLACTIC ACID, ARTERIAL, WHOLE [id number] 01:40:00 * Test Item Value Reference Range Comments LACTATE BLOOD ARTERIAL (2) (BEAKER) (test wabt=1850) 1.2 mmol/L 0.5-2.2 Effective 03/10/2016: Units/Reference Range ChangeNew: 0.5-2.2 mmol/L Previous: 5 -20 mg/dLSpecimen moderately ictericPLATELET [id number] 01:40:00* Test Item Value Reference Range Comments PLATELET COUNT (BEAKER) (test jbhe=205) 61 K/CU MM 150-450 PROTHROMBIN TIME/[id number] 01:34:00* Test Item Value Reference Range Comments PROTIME (BEAKER) (test mirf=890) 15.6 seconds 11.7-14.7 INR (BEAKER) (test qqgo=341) 1.2 <=5.9 RECOMMENDED COUMADIN/WARFARIN INR THERAPY RANGESSTANDARD DOSE: 2.0 - 3.0 Inclu connie: PROPHYLAXIS for venous thrombosis, systemic embolization; TREATMENT for lupis ous thrombosis and/or pulmonary embolus.HIGH RISK: Target INR is 2.5-3.5 for pat ients with mechanical heart valves.[id number] 01:34:00* Test Item Value Reference Range Comments FIBRINOGEN LEVEL (BEAKER) (test nvft=910) 406 mg/dl 225-434 [id number] 01:34:00* Test Item Value Reference Range Comments PARTIAL THROMBOPLASTIN TIME (BEAKER) (test ynlu=756) 39.4 seconds 22.5-36.0 BLOOD GAS, [id number] 01:26:00* Test Item Value Reference Range Comments PH ARTERIAL (BEAKER) (test ocmf=221) 7.48 7.35-7.45 PCO2 ARTERIAL (BEAKER) (test ogyr=010) 36 mmHg 35-45 PO2 ARTERIAL (BEAKER) (test emdv=477) 60 mmHg 80-90 O2 SATURATION ARTERIAL (BEAKER) (test dcig=268) 93.0 % 96.0-97.0 HCO3 ARTERIAL (BEAKER) (test ucuu=694) 26 mmol/L 21-29 BASE EXCESS ARTERIAL (BEAKER) (test kkkd=053) 2.4 mmol/L -2.0-3.0 PATIENT TEMPERATURE (BEAKER) (test mcvw=4278) 36.8 C FIO2 (BEAKER) (test rjxe=2315) 100.0 % OXYGEN SATURATION, [id number] 01:25:00* Test Item Value Reference Range Comments O2 SATURATION (MEASURED) (BEAKER) (test xlha=9598) 57.3 % BLOOD GAS, [id number] 23:39:00* Test Item Value Reference Range Comments PH ARTERIAL (BEAKER) (test cgjd=146) 7.38 7.35-7.45 PCO2 ARTERIAL (BEAKER) (test uhqo=546) 47 mmHg 35-45 PO2 ARTERIAL (BEAKER) (test sgfe=812) 270 mmHg 80-90 O2 SATURATION ARTERIAL (BEAKER) (test zaxe=757) 99.6 % 96.0-97.0 HCO3 ARTERIAL (BEAKER) (test xeox=425) 27 mmol/L 21-29 BASE EXCESS ARTERIAL (BEAKER) (test gnst=189) 1.6 mmol/L -2.0-3.0 PATIENT TEMPERATURE (BEAKER) (test nwdy=8191) 36.7 C FIO2 (BEAKER) (test umeu=7985) 100.0 % BLOOD GAS, [id number] 23:35:00* Test Item Value Reference Range Comments PH ARTERIAL (BEAKER) (test eabd=466) 7.49 7.35-7.45 PCO2 ARTERIAL (BEAKER) (test ddxf=290) 36 mmHg 35-45 PO2 ARTERIAL (BEAKER) (test bhkr=786) 47 mmHg 80-90 O2 SATURATION ARTERIAL (BEAKER) (test urac=623) 87.2 % 96.0-97.0 HCO3 ARTERIAL (BEAKER) (test pofq=247) 27 mmol/L 21-29 BASE EXCESS ARTERIAL (BEAKER) (test rakw=119) 3.7 mmol/L -2.0-3.0 PATIENT TEMPERATURE (BEAKER) (test stmg=8702) 36.8 C FIO2 (BEAKER) (test ydkb=1587) 90.0 % BASIC METABOLIC [id number] 22:03:00* Test Item Value Reference Range Comments SODIUM (BEAKER) (test sdyw=685) 135 meq/L 136-145 POTASSIUM (BEAKER) (test kydt=779) 3.6 meq/L 3.5-5.1 CHLORIDE (BEAKER) (test kpcw=447) 100 meq/L 98-107 CO2 (BEAKER) (test xqap=636) 25 meq/L 22-29 BLOOD UREA NITROGEN (BEAKER) (test sodv=707) 29 mg/dL 7-21 CREATININE (BEAKER) (test lduc=093) 1.27 mg/dL 0.57-1.25 GLUCOSE RANDOM (BEAKER) (test ylmk=327) 141 mg/dL 70-105 CALCIUM (BEAKER) (test xdgq=699) 8.8 mg/dL 8.4-10.2 EGFR (BEAKER) (test pdab=1132) 44 mL/min/1.73 sq m ESTIMATED GFR IS NOT ACCURATE CREATININE CLEARANCE IN PREDICTING GLOMERULAR FILTRATION RATE. ESTIMATED GFR IS NOT APPLICABLE FOR DIALYSIS PATIENTS. Specimen moderately ictericLACTIC ACID, ARTERIAL, WHOLE [id number] 22:01:00 * Test Item Value Reference Range Comments LACTATE BLOOD ARTERIAL (2) (BEAKER) (test ktey=1660) 1.2 mmol/L 0.5-2.2 Effective 03/10/2016: Units/Reference Range ChangeNew: 0.5-2.2 mmol/L Previous: 5 -20 mg/dLSpecimen moderately [id number] 21:55:00* Test Item Value Reference Range Comments PARTIAL THROMBOPLASTIN TIME (BEAKER) (test yacf=352) 35.1 seconds 22.5-36.0 PROTHROMBIN TIME/[id number] 21:54:00* Test Item Value Reference Range Comments PROTIME (BEAKER) (test lnwe=565) 14.9 seconds 11.7-14.7 INR (BEAKER) (test ieef=721) 1.2 <=5.9 RECOMMENDED COUMADIN/WARFARIN INR THERAPY RANGESSTANDARD DOSE: 2.0 - 3.0 Inclu connie: PROPHYLAXIS for venous thrombosis, systemic embolization; TREATMENT for lupis ous thrombosis and/or pulmonary embolus.HIGH RISK: Target INR is 2.5-3.5 for pat ients with mechanical heart valves.[id number] 21:54:00* Test Item Value Reference Range Comments FIBRINOGEN LEVEL (BEAKER) (test pjeg=287) 390 mg/dl 225-434 BLOOD GAS, [id number] 21:47:00* Test Item Value Reference Range Comments PH ARTERIAL (BEAKER) (test fcnt=319) 7.47 7.35-7.45 PCO2 ARTERIAL (BEAKER) (test sljj=637) 37 mmHg 35-45 PO2 ARTERIAL (BEAKER) (test bkzt=435) 38 mmHg 80-90 O2 SATURATION ARTERIAL (BEAKER) (test zjeb=864) 78.1 % 96.0-97.0 HCO3 ARTERIAL (BEAKER) (test ehnv=669) 27 mmol/L 21-29 BASE EXCESS ARTERIAL (BEAKER) (test yykm=093) 2.6 mmol/L -2.0-3.0 PATIENT TEMPERATURE (BEAKER) (test fqwn=1825) 36.3 C FIO2 (BEAKER) (test vjmo=0854) 80.0 % PLATELET [id number] 21:46:00* Test Item Value Reference Range Comments PLATELET COUNT (BEAKER) (test ufau=037) 70 K/CU MM 150-450 OXYGEN SATURATION, [id number] 21:44:00* Test Item Value Reference Range Comments O2 SATURATION (MEASURED) (BEAKER) (test tvem=3219) 52.3 % [id number] 18:22:00* Test Item Value Reference Range Comments PARTIAL THROMBOPLASTIN TIME (BEAKER) (test jdzm=617) 42.2 seconds 22.5-36.0 BLOOD GAS, [id number] 18:15:00* Test Item Value Reference Range Comments PH ARTERIAL (BEAKER) (test aecx=138) 7.45 7.35-7.45 PCO2 ARTERIAL (BEAKER) (test vodo=166) 41 mmHg 35-45 PO2 ARTERIAL (BEAKER) (test ezyu=988) 43 mmHg 80-90 O2 SATURATION ARTERIAL (BEAKER) (test tmyx=312) 80.9 % 96.0-97.0 HCO3 ARTERIAL (BEAKER) (test xliw=649) 28 mmol/L 21-29 BASE EXCESS ARTERIAL (BEAKER) (test huix=110) 3.6 mmol/L -2.0-3.0 PATIENT TEMPERATURE (BEAKER) (test behr=0647) 36.8 C FIO2 (BEAKER) (test uqce=6983) 80.0 % GLUCOSE-STAT [id number] 18:13:00* Test Item Value Reference Range Comments GLUCOSE RANDOM (BEAKER) (test nkyw=017) 98 mg/dL 70-110 BASIC METABOLIC [id number] 17:55:00* Test Item Value Reference Range Comments SODIUM (BEAKER) (test edwn=618) 138 meq/L 136-145 POTASSIUM (BEAKER) (test kbvx=434) 4.3 meq/L 3.5-5.1 CHLORIDE (BEAKER) (test ndvo=001) 103 meq/L 98-107 CO2 (BEAKER) (test ejcn=058) 27 meq/L 22-29 BLOOD UREA NITROGEN (BEAKER) (test rokz=245) 28 mg/dL 7-21 CREATININE (BEAKER) (test hlpa=011) 1.25 mg/dL 0.57-1.25 GLUCOSE RANDOM (BEAKER) (test rcds=511) 98 mg/dL 70-105 CALCIUM (BEAKER) (test yayy=344) 8.7 mg/dL 8.4-10.2 EGFR (BEAKER) (test slqd=2022) 45 mL/min/1.73 sq m ESTIMATED GFR IS NOT ACCURATE CREATININE CLEARANCE IN PREDICTING GLOMERULAR FILTRATION RATE. ESTIMATED GFR IS NOT APPLICABLE FOR DIALYSIS PATIENTS. Specimen moderately ictericLACTIC ACID, ARTERIAL, WHOLE [id number] 17:41:00 * Test Item Value Reference Range Comments LACTATE BLOOD ARTERIAL (2) (BEAKER) (test yozw=3245) 1.2 mmol/L 0.5-2.2 Effective 03/10/2016: Units/Reference Range ChangeNew: 0.5-2.2 mmol/L Previous: 5 -20 mg/dLSpecimen moderately ictericTHROMBOELASTOGRAPH (TEG)2018-02-05 17:22:00 * Test Item Value Reference Range Comments TGH ACTIVATED CLOTTING TIME (BEAKER) (test wodr=4530) 7.8 minutes 4.0-7.0 TGH FIBRINOGEN ACTIVITY (BEAKER) (test fedq=4140) 58.0 degrees 61.0-73.0 TGH PLT. AGGREGATION (BEAKER) (test kpdz=6023) 51.5 MM 55.0-65.0 TGH FIBRINOLYSIS (BEAKER) (test xxkk=4479) 0.0 % 0.0-5.0 No clot in citrated kaolinHEMOGLOBIN AND [id number] 17:19:00* Test Item Value Reference Range Comments HEMOGLOBIN (BEAKER) (test xyzd=657) 9.1 GM/DL 11.2-15.7 HEMATOCRIT (BEAKER) (test dofv=772) 27.1 % 34.1-44.9 BLOOD GAS, [id number] 16:20:00* Test Item Value Reference Range Comments PH ARTERIAL (BEAKER) (test cwpp=693) 7.48 7.35-7.45 PCO2 ARTERIAL (BEAKER) (test rxtm=672) 37 mmHg 35-45 PO2 ARTERIAL (BEAKER) (test esjx=414) 44 mmHg 80-90 O2 SATURATION ARTERIAL (BEAKER) (test omzq=641) 83.8 % 96.0-97.0 HCO3 ARTERIAL (BEAKER) (test visg=876) 27 mmol/L 21-29 BASE EXCESS ARTERIAL (BEAKER) (test ggji=315) 3.5 mmol/L -2.0-3.0 PATIENT TEMPERATURE (BEAKER) (test sbxr=1434) 36.7 C FIO2 (BEAKER) (test gyzv=8893) 60.0 % OXYGEN SATURATION, [id number] 16:09:00* Test Item Value Reference Range Comments O2 SATURATION (MEASURED) (BEAKER) (test mscf=8348) 52.9 % BASIC METABOLIC [id number] 12:56:00* Test Item Value Reference Range Comments SODIUM (BEAKER) (test vfnt=113) 138 meq/L 136-145 POTASSIUM (BEAKER) (test qnaw=322) 3.3 meq/L 3.5-5.1 CHLORIDE (BEAKER) (test bkrx=342) 102 meq/L 98-107 CO2 (BEAKER) (test qwtq=505) 27 meq/L 22-29 BLOOD UREA NITROGEN (BEAKER) (test ldnh=242) 31 mg/dL 7-21 CREATININE (BEAKER) (test hxwl=768) 1.35 mg/dL 0.57-1.25 GLUCOSE RANDOM (BEAKER) (test kxva=846) 192 mg/dL 70-105 CALCIUM (BEAKER) (test ipwx=715) 8.5 mg/dL 8.4-10.2 EGFR (BEAKER) (test peqw=0587) 41 mL/min/1.73 sq m ESTIMATED GFR IS NOT ACCURATE CREATININE CLEARANCE IN PREDICTING GLOMERULAR FILTRATION RATE. ESTIMATED GFR IS NOT APPLICABLE FOR DIALYSIS PATIENTS. Specimen moderately [id number] 12:51:00* Test Item Value Reference Range Comments FIBRINOGEN LEVEL (BEAKER) (test rkhd=157) 347 mg/dl 225-434 [id number] 12:51:00* Test Item Value Reference Range Comments PARTIAL THROMBOPLASTIN TIME (BEAKER) (test pcwb=357) 41.6 seconds 22.5-36.0 PROTHROMBIN TIME/[id number] 12:50:00* Test Item Value Reference Range Comments PROTIME (SARAHAKER) (test djoj=036) 15.2 seconds 11.7-14.7 INR (BEAKER) (test afoa=471) 1.2 <=5.9 RECOMMENDED COUMADIN/WARFARIN INR THERAPY RANGESSTANDARD DOSE: 2.0 - 3.0 Inclu connie: PROPHYLAXIS for venous thrombosis, systemic embolization; TREATMENT for lupis ous thrombosis and/or pulmonary embolus.HIGH RISK: Target INR is 2.5-3.5 for pat ients with mechanical heart valves.PLATELET [id number] 12:42:00* Test Item Value Reference Range Comments PLATELET COUNT (SARAHAKER) (test nbcx=944) 66 K/CU MM 150-450 [id number] 10:40:00* Test Item Value Reference Range Comments D-DIMER QUANTITATIVE (BEAKER) (test ahbk=491) 10.72 MG/L FEU <0.50 Intended Use: The D-Dimer Assay can be used to aid in the diagnosis of Deep Vein Thrombosis (DVT) and Pulmonary Embolism Disease (PED).In patients with low pre- test probability, various studies concerning STA Liatest D-dimer test have repor emily that with a cutoff value of 0.50 MG/L FEU, the Negative Predictive Value (ELEVATED WORK PLATFORM OPERATOR V) regarding the exclusion of thrombosis is within 95-100% range.ANTITHROMBIN [id number] 09:04:00* Test Item Value Reference Range Comments ANTITHROMBIN III ACTIVITY (BEAKER) (test msli=471) 71.0 % 80.0-120.0 HEPARIN ASSAY - [id number] 09:04:00* Test Item Value Reference Range Comments UNFRACTIONATED HEPARIN-ANTI 10A (BEAKER) (test anas=7187) < u/ml 0.30-0.70 Recommendations for Monitoring Unfractionated Heparin Therapeutic Range: 0.3-0. 7 u/mL with continuous IV infusionTHROMBOELASTOGRAPH (TEG)2018-02-05 06:22:00* Test Item Value Reference Range Comments TEG ACTIVATED CLOTTING TIME (BEAKER) (test hvvv=1217) 13.6 minutes 4.0-7.0 TEG FIBRINOGEN ACTIVITY (BEAKER) (test lyra=9234) 52.7 degrees 61.0-73.0 TEG PLT. AGGREGATION (BEAKER) (test lhzg=3190) 57.3 MM 55.0-65.0 TEG FIBRINOLYSIS (BEAKER) (test alxz=1419) 0.0 % 0.0-5.0 TGH ACTIVATED CLOTTING TIME (BEAKER) (test ffaj=7413) 6.6 minutes 4.0-7.0 TGH FIBRINOGEN ACTIVITY (BEAKER) (test tdho=1995) 62.4 degrees 61.0-73.0 TGH PLT. AGGREGATION (BEAKER) (test lkjs=8103) 53.1 MM 55.0-65.0 TGH FIBRINOLYSIS (BEAKER) (test cjjo=4219) 0.0 % 0.0-5.0 [id number] 05:19:00* Test Item Value Reference Range Comments POTASSIUM (BEAKER) (test guln=793) 3.1 meq/L 3.5-5.1 [id number] 05:19:00* Test Item Value Reference Range Comments MAGNESIUM (BEAKER) (test yczg=288) 2.0 mg/dL 1.6-2.6 BASIC METABOLIC [id number] 05:19:00* Test Item Value Reference Range Comments SODIUM (BEAKER) (test vdcn=753) 139 meq/L 136-145 POTASSIUM (BEAKER) (test pnhx=001) 3.1 meq/L 3.5-5.1 CHLORIDE (BEAKER) (test dwbl=493) 101 meq/L 98-107 CO2 (BEAKER) (test jser=841) 28 meq/L 22-29 BLOOD UREA NITROGEN (BEAKER) (test nxxf=329) 32 mg/dL 7-21 CREATININE (BEAKER) (test ldgt=769) 1.47 mg/dL 0.57-1.25 GLUCOSE RANDOM (BEAKER) (test yxjp=363) 180 mg/dL 70-105 CALCIUM (BEAKER) (test ppmu=575) 8.7 mg/dL 8.4-10.2 EGFR (BEAKER) (test psqt=2432) 37 mL/min/1.73 sq m ESTIMATED GFR IS NOT ACCURATE CREATININE CLEARANCE IN PREDICTING GLOMERULAR FILTRATION RATE. ESTIMATED GFR IS NOT APPLICABLE FOR DIALYSIS PATIENTS. Specimen moderately ictericHEPATIC FUNCTION [id number] 05:19:00* Test Item Value Reference Range Comments TOTAL PROTEIN (BEAKER) (test kcoo=553) 4.9 gm/dL 6.0-8.3 ALBUMIN (BEAKER) (test bzpd=3472) 3.1 g/dL 3.5-5.0 BILIRUBIN TOTAL (BEAKER) (test cvuf=139) 6.7 mg/dL 0.2-1.2 BILIRUBIN DIRECT (BEAKER) (test jczx=368) 4.7 mg/dL 0.1-0.5 ALKALINE PHOSPHATASE (BEAKER) (test jsmt=030) 97 U/L 40-150 AST (SGOT) (BEAKER) (test eigm=026) 66 U/L 5-34 ALT (SGPT) (BEAKER) (test kpks=498) 49 U/L 6-55 Specimen moderately ictericLACTATE DEHYDROGENASE (LDH)2018-02-05 05:19:00* Test Item Value Reference Range Comments LACTATE DEHYDROGENASE (BEAKER) (test mbuj=368) 408 U/L 125-220 BASIC METABOLIC [id number] 05:18:00* Test Item Value Reference Range Comments SODIUM (BEAKER) (test betj=353) 139 meq/L 136-145 POTASSIUM (BEAKER) (test uhnb=398) 3.2 meq/L 3.5-5.1 CHLORIDE (BEAKER) (test mxos=161) 101 meq/L 98-107 CO2 (BEAKER) (test uypp=449) 27 meq/L 22-29 BLOOD UREA NITROGEN (BEAKER) (test vfqx=163) 32 mg/dL 7-21 CREATININE (BEAKER) (test harx=332) 1.42 mg/dL 0.57-1.25 GLUCOSE RANDOM (BEAKER) (test frvs=928) 180 mg/dL 70-105 CALCIUM (BEAKER) (test cliy=310) 8.7 mg/dL 8.4-10.2 EGFR (BEAKER) (test xadz=0826) 39 mL/min/1.73 sq m ESTIMATED GFR IS NOT ACCURATE CREATININE CLEARANCE IN PREDICTING GLOMERULAR FILTRATION RATE. ESTIMATED GFR IS NOT APPLICABLE FOR DIALYSIS PATIENTS. Specimen moderately ictericOXYGEN SATURATION, [id number] 05:13:00* Test Item Value Reference Range Comments O2 SATURATION (MEASURED) (BEAKER) (test jksb=5176) 74.3 % CALCIUM, [id number] 05:10:00* Test Item Value Reference Range Comments CALCIUM IONIZED (BEAKER) (test clox=599) 1.09 mmol/L 1.12-1.27 PH, BLOOD (BEAKER) (test jmfy=8123) 7.47 BLOOD GAS, [id number] 05:09:00* Test Item Value Reference Range Comments PH ARTERIAL (BEAKER) (test dzzw=907) 7.44 7.35-7.45 PCO2 ARTERIAL (BEAKER) (test ntcn=934) 46 mmHg 35-45 PO2 ARTERIAL (BEAKER) (test nyaw=538) 398 mmHg 80-90 O2 SATURATION ARTERIAL (BEAKER) (test qfuh=388) 99.8 % 96.0-97.0 HCO3 ARTERIAL (BEAKER) (test mtsk=717) 31 mmol/L 21-29 BASE EXCESS ARTERIAL (BEAKER) (test yiqa=832) 5.4 mmol/L -2.0-3.0 PATIENT TEMPERATURE (BEAKER) (test lvrw=9897) 36.0 C FIO2 (BEAKER) (test pfjh=3912) 100.0 % BLOOD GAS, [id number] 05:09:00* Test Item Value Reference Range Comments PH ARTERIAL (BEAKER) (test ayem=794) 7.47 7.35-7.45 PCO2 ARTERIAL (BEAKER) (test icvn=374) 42 mmHg 35-45 PO2 ARTERIAL (BEAKER) (test meqg=204) 73 mmHg 80-90 O2 SATURATION ARTERIAL (BEAKER) (test jyte=162) 95.5 % 96.0-97.0 HCO3 ARTERIAL (BEAKER) (test mydo=408) 30 mmol/L 21-29 BASE EXCESS ARTERIAL (BEAKER) (test uhpp=317) 5.4 mmol/L -2.0-3.0 PATIENT TEMPERATURE (BEAKER) (test grwm=7199) 37.0 C FIO2 (BEAKER) (test jetq=9436) 80.0 % LACTIC ACID, ARTERIAL, WHOLE [id number] 05:03:00* Test Item Value Reference Range Comments LACTATE BLOOD ARTERIAL (2) (BEAKER) (test zzot=0938) 1.6 mmol/L 0.5-2.2 Effective 03/10/2016: Units/Reference Range ChangeNew: 0.5-2.2 mmol/L Previous: 5 -20 mg/dLSpecimen moderately ictericPROTHROMBIN [id number] 04:56:00* Test Item Value Reference Range Comments PROTIME (BEAKER) (test rlvi=810) 15.5 seconds 11.7-14.7 INR (BEAKER) (test nycd=266) 1.2 <=5.9 RECOMMENDED COUMADIN/WARFARIN INR THERAPY RANGESSTANDARD DOSE: 2.0 - 3.0 Inclu connie: PROPHYLAXIS for venous thrombosis, systemic embolization; TREATMENT for lupis ous thrombosis and/or pulmonary embolus.HIGH RISK: Target INR is 2.5-3.5 for pat ients with mechanical heart valves.[id number] 04:55:00* Test Item Value Reference Range Comments FIBRINOGEN LEVEL (BEAKER) (test nzej=949) 396 mg/dl 225-434 [id number] 04:55:00* Test Item Value Reference Range Comments PARTIAL THROMBOPLASTIN TIME (BEAKER) (test ddmm=625) 39.1 seconds 22.5-36.0 CBC (HEMOGRAM ONLY)2018-02-05 04:49:00* Test Item Value Reference Range Comments WHITE BLOOD CELL COUNT (BEAKER) (test jols=595) 9.3 K/ L 3.5-10.5 RED BLOOD CELL COUNT (BEAKER) (test ywuu=019) 2.64 M/ L 3.93-5.22 HEMOGLOBIN (BEAKER) (test ixov=540) 7.6 GM/DL 11.2-15.7 HEMATOCRIT (BEAKER) (test tyvg=270) 23.6 % 34.1-44.9 MEAN CORPUSCULAR VOLUME (BEAKER) (test lxfk=135) 89.4 fL 79.4-94.8 MEAN CORPUSCULAR HEMOGLOBIN (BEAKER) (test avzy=425) 28.8 pg 25.6-32.2 MEAN CORPUSCULAR HEMOGLOBIN CONC (BEAKER) (test ybtf=259) 32.2 GM/DL 32.2-35.5 RED CELL DISTRIBUTION WIDTH (BEAKER) (test zyhj=139) 15.5 % 11.7-14.4 PLATELET COUNT (BEAKER) (test iuzq=616) 89 K/CU MM 150-450 MEAN PLATELET VOLUME (BEAKER) (test iedh=933) 10.1 fL 9.4-12.3 NUCLEATED RED BLOOD CELLS (BEAKER) (test shxd=557) 0 /100 WBC 0-0 RAD, CHEST, 1 VIEW, NON [id number] 03:42:00Reason for exam:-> ECMO/intubatedShould this be performed at the bedside?->YesIs the patient ?->UnknownFINAL REPORT CLINICAL INDICATION: Support lines. Comparison: 07/07/2018 At 1216 hours The cardiomediastinal contours are stable. Left greater than right parenchymal and left pleural opacities are unchanged. There is no pneumothorax. Support lines are stable. Signed: Abel Schwartz MDReport Verified Date/Time: 02/05/2018 03:42:43 Reading Location: [address] Reading Room C METABOLIC [id number] 01:59:00* Test Item Value Reference Range Comments SODIUM (BEAKER) (test ucry=337) 138 meq/L 136-145 POTASSIUM (BEAKER) (test jaao=491) 3.6 meq/L 3.5-5.1 CHLORIDE (BEAKER) (test ktrv=964) 100 meq/L 98-107 CO2 (BEAKER) (test huxz=640) 28 meq/L 22-29 BLOOD UREA NITROGEN (BEAKER) (test atwu=918) 33 mg/dL 7-21 CREATININE (BEAKER) (test gafg=683) 1.47 mg/dL 0.57-1.25 GLUCOSE RANDOM (BEAKER) (test sgam=782) 170 mg/dL 70-105 CALCIUM (BEAKER) (test eonl=553) 8.8 mg/dL 8.4-10.2 EGFR (BEAKER) (test tyiq=7118) 37 mL/min/1.73 sq m ESTIMATED GFR IS NOT ACCURATE CREATININE CLEARANCE IN PREDICTING GLOMERULAR FILTRATION RATE. ESTIMATED GFR IS NOT APPLICABLE FOR DIALYSIS PATIENTS. Specimen moderately [id number] 01:57:00* Test Item Value Reference Range Comments FIBRINOGEN LEVEL (BEAKER) (test mvrm=601) 381 mg/dl 225-434 PROTHROMBIN [id number] 01:56:00* Test Item Value Reference Range Comments PROTIME (BEAKER) (test pbca=258) 15.0 seconds 11.7-14.7 INR (BEAKER) (test pgkb=134) 1.2 <=5.9 RECOMMENDED COUMADIN/WARFARIN INR THERAPY RANGESSTANDARD DOSE: 2.0 - 3.0 Inclu connie: PROPHYLAXIS for venous thrombosis, systemic embolization; TREATMENT for lupis ous thrombosis and/or pulmonary embolus.HIGH RISK: Target INR is 2.5-3.5 for pat ients with mechanical heart valves.LACTIC ACID, ARTERIAL, WHOLE [id number] 01:53:00* Test Item Value Reference Range Comments LACTATE BLOOD ARTERIAL (2) (BEAKER) (test sudl=2450) 1.5 mmol/L 0.5-2.2 Effective 03/10/2016: Units/Reference Range ChangeNew: 0.5-2.2 mmol/L Previous: 5 -20 mg/dLSpecimen moderately ictericOXYGEN SATURATION, [id number] 01:23:00* Test Item Value Reference Range Comments O2 SATURATION (MEASURED) (BEAKER) (test tmgi=5235) 65.6 % BLOOD GAS, [id number] 01:23:00* Test Item Value Reference Range Comments PH ARTERIAL (BEAKER) (test ipxm=023) 7.47 7.35-7.45 PCO2 ARTERIAL (BEAKER) (test ffuy=565) 42 mmHg 35-45 PO2 ARTERIAL (BEAKER) (test setq=591) 55 mmHg 80-90 O2 SATURATION ARTERIAL (BEAKER) (test gafk=404) 90.7 % 96.0-97.0 HCO3 ARTERIAL (BEAKER) (test xdyk=737) 30 mmol/L 21-29 BASE EXCESS ARTERIAL (BEAKER) (test xokb=178) 6.1 mmol/L -2.0-3.0 PATIENT TEMPERATURE (BEAKER) (test nhbh=2864) 36.7 C FIO2 (BEAKER) (test oojr=6829) 80.0 % BLOOD GAS, [id number] 23:04:00* Test Item Value Reference Range Comments PH ARTERIAL (BEAKER) (test ktpx=202) 7.49 7.35-7.45 PCO2 ARTERIAL (BEAKER) (test lllm=676) 40 mmHg 35-45 PO2 ARTERIAL (BEAKER) (test offz=142) 54 mmHg 80-90 O2 SATURATION ARTERIAL (BEAKER) (test krnf=464) 91.4 % 96.0-97.0 HCO3 ARTERIAL (BEAKER) (test zamj=560) 30 mmol/L 21-29 BASE EXCESS ARTERIAL (BEAKER) (test xcdu=162) 6.1 mmol/L -2.0-3.0 PATIENT TEMPERATURE (BEAKER) (test kxpy=9149) 36.3 C FIO2 (BEAKER) (test mjjy=8136) 80.0 % [id number] 21:13:00* Test Item Value Reference Range Comments POTASSIUM (BEAKER) (test kdkm=630) 3.3 meq/L 3.5-5.1 [id number] 21:13:00* Test Item Value Reference Range Comments SODIUM (BEAKER) (test oyxu=950) 140 meq/L 136-145 BASIC METABOLIC [id number] 21:13:00* Test Item Value Reference Range Comments SODIUM (BEAKER) (test alzn=712) 140 meq/L 136-145 POTASSIUM (BEAKER) (test imew=455) 3.3 meq/L 3.5-5.1 CHLORIDE (BEAKER) (test ngim=599) 102 meq/L 98-107 CO2 (BEAKER) (test seau=873) 28 meq/L 22-29 BLOOD UREA NITROGEN (BEAKER) (test byqe=431) 33 mg/dL 7-21 CREATININE (BEAKER) (test xpyp=873) 1.55 mg/dL 0.57-1.25 GLUCOSE RANDOM (BEAKER) (test hhrx=781) 169 mg/dL 70-105 CALCIUM (BEAKER) (test dfyu=247) 9.0 mg/dL 8.4-10.2 EGFR (BEAKER) (test buxe=2776) 35 mL/min/1.73 sq m ESTIMATED GFR IS NOT ACCURATE CREATININE CLEARANCE IN PREDICTING GLOMERULAR FILTRATION RATE. ESTIMATED GFR IS NOT APPLICABLE FOR DIALYSIS PATIENTS. Specimen moderately ictericLACTIC ACID, ARTERIAL, WHOLE [id number] 21:10:00 * Test Item Value Reference Range Comments LACTATE BLOOD ARTERIAL (2) (BEAKER) (test ckhg=3721) 1.3 mmol/L 0.5-2.2 Effective 03/10/2016: Units/Reference Range ChangeNew: 0.5-2.2 mmol/L Previous: 5 -20 mg/dLSpecimen moderately [id number] 21:06:00* Test Item Value Reference Range Comments PARTIAL THROMBOPLASTIN TIME (BEAKER) (test bhes=715) 43.3 seconds 22.5-36.0 [id number] 21:05:00* Test Item Value Reference Range Comments FIBRINOGEN LEVEL (BEAKER) (test rfqa=284) 412 mg/dl 225-434 [id number] 21:05:00* Test Item Value Reference Range Comments PARTIAL THROMBOPLASTIN TIME (BEAKER) (test mfsr=946) 42.9 seconds 22.5-36.0 PROTHROMBIN [id number] 21:04:00* Test Item Value Reference Range Comments PROTIME (BEAKER) (test hjct=449) 15.3 seconds 11.7-14.7 INR (BEAKER) (test dhma=297) 1.2 <=5.9 RECOMMENDED COUMADIN/WARFARIN INR THERAPY RANGESSTANDARD DOSE: 2.0 - 3.0 Inclu connie: PROPHYLAXIS for venous thrombosis, systemic embolization; TREATMENT for lupis ous thrombosis and/or pulmonary embolus.HIGH RISK: Target INR is 2.5-3.5 for pat ients with mechanical heart valves.PLATELET [id number] 20:54:00* Test Item Value Reference Range Comments PLATELET COUNT (BEAKER) (test dekm=776) 76 K/CU MM 150-450 BLOOD GAS, [id number] 20:48:00* Test Item Value Reference Range Comments PH ARTERIAL (BEAKER) (test wyql=482) 7.49 7.35-7.45 PCO2 ARTERIAL (BEAKER) (test uaew=555) 40 mmHg 35-45 PO2 ARTERIAL (BEAKER) (test umiy=595) 55 mmHg 80-90 O2 SATURATION ARTERIAL (BEAKER) (test ymuf=682) 91.8 % 96.0-97.0 HCO3 ARTERIAL (BEAKER) (test uwhb=278) 30 mmol/L 21-29 BASE EXCESS ARTERIAL (BEAKER) (test ohaz=135) 5.9 mmol/L -2.0-3.0 PATIENT TEMPERATURE (BEAKER) (test sykt=3867) 36.2 C FIO2 (BEAKER) (test uyqj=7172) 70.0 % OXYGEN SATURATION, [id number] 20:47:00* Test Item Value Reference Range Comments O2 SATURATION (MEASURED) (BEAKER) (test pdfs=9812) 66.1 % BLOOD GAS, [id number] 18:45:00* Test Item Value Reference Range Comments PH ARTERIAL (BEAKER) (test lony=368) 7.48 7.35-7.45 PCO2 ARTERIAL (BEAKER) (test dtcj=100) 41 mmHg 35-45 PO2 ARTERIAL (BEAKER) (test vvtg=891) 54 mmHg 80-90 O2 SATURATION ARTERIAL (BEAKER) (test rhof=273) 89.9 % 96.0-97.0 HCO3 ARTERIAL (BEAKER) (test dtmc=653) 30 mmol/L 21-29 BASE EXCESS ARTERIAL (BEAKER) (test lquj=830) 5.7 mmol/L -2.0-3.0 PATIENT TEMPERATURE (BEAKER) (test xwol=7708) 37.0 C FIO2 (BEAKER) (test osnn=3607) 100.0 % [id number] 18:20:00* Test Item Value Reference Range Comments FIBRINOGEN LEVEL (BEAKER) (test gdgc=150) 381 mg/dl 225-434 [id number] 18:20:00* Test Item Value Reference Range Comments PARTIAL THROMBOPLASTIN TIME (BEAKER) (test jdpc=740) 39.5 seconds 22.5-36.0 PROTHROMBIN [id number] 18:19:00* Test Item Value Reference Range Comments PROTIME (BEAKER) (test xzxs=940) 15.3 seconds 11.7-14.7 INR (BEAKER) (test dpzj=250) 1.2 <=5.9 RECOMMENDED COUMADIN/WARFARIN INR THERAPY RANGESSTANDARD DOSE: 2.0 - 3.0 Inclu connie: PROPHYLAXIS for venous thrombosis, systemic embolization; TREATMENT for lupis ous thrombosis and/or pulmonary embolus.HIGH RISK: Target INR is 2.5-3.5 for pat ients with mechanical heart valves.THROMBOELASTOGRAPH (TEG)2018-02-04 18:08:00* Test Item Value Reference Range Comments TEG ACTIVATED CLOTTING TIME (BEAKER) (test xauu=4512) 14.2 minutes 4.0-7.0 TEG FIBRINOGEN ACTIVITY (BEAKER) (test usfp=4106) 48.0 degrees 61.0-73.0 TEG PLT. AGGREGATION (BEAKER) (test wgaw=1983) 59.7 MM 55.0-65.0 TEG FIBRINOLYSIS (BEAKER) (test pupr=9726) 0.0 % 0.0-5.0 TGH ACTIVATED CLOTTING TIME (BEAKER) (test dthv=5318) 7.3 minutes 4.0-7.0 TGH FIBRINOGEN ACTIVITY (BEAKER) (test iebz=6698) 61.4 degrees 61.0-73.0 TGH PLT. AGGREGATION (BEAKER) (test bbup=8955) 53.8 MM 55.0-65.0 TGH FIBRINOLYSIS (BEAKER) (test dioe=8570) 0.0 % 0.0-5.0 OXYGEN SATURATION, [id number] 17:50:00* Test Item Value Reference Range Comments O2 SATURATION (MEASURED) (BEAKER) (test gnqs=2154) 60.5 % LACTIC ACID, ARTERIAL, WHOLE [id number] 17:32:00* Test Item Value Reference Range Comments LACTATE BLOOD ARTERIAL (2) (BEAKER) (test chhr=1674) 1.3 mmol/L 0.5-2.2 Effective 03/10/2016: Units/Reference Range ChangeNew: 0.5-2.2 mmol/L Previous: 5 -20 mg/dLSpecimen moderately ictericBASIC METABOLIC [id number] 17:31:00* Test Item Value Reference Range Comments SODIUM (BEAKER) (test wiwy=947) 141 meq/L 136-145 POTASSIUM (BEAKER) (test dckv=473) 3.6 meq/L 3.5-5.1 CHLORIDE (BEAKER) (test omfd=608) 102 meq/L 98-107 CO2 (BEAKER) (test fnry=304) 28 meq/L 22-29 BLOOD UREA NITROGEN (BEAKER) (test tjtg=074) 34 mg/dL 7-21 CREATININE (BEAKER) (test ekqo=538) 1.60 mg/dL 0.57-1.25 GLUCOSE RANDOM (BEAKER) (test gzcg=279) 161 mg/dL 70-105 CALCIUM (BEAKER) (test zekx=984) 8.9 mg/dL 8.4-10.2 EGFR (BEAKER) (test gytc=1812) 34 mL/min/1.73 sq m ESTIMATED GFR IS NOT ACCURATE CREATININE CLEARANCE IN PREDICTING GLOMERULAR FILTRATION RATE. ESTIMATED GFR IS NOT APPLICABLE FOR DIALYSIS PATIENTS. Specimen moderately ictericPLATELET [id number] 17:09:00* Test Item Value Reference Range Comments PLATELET COUNT (BEAKER) (test trpy=560) 82 K/CU MM 150-450 HEMOGLOBIN AND [id number] 17:09:00* Test Item Value Reference Range Comments HEMOGLOBIN (BEAKER) (test onvz=062) 7.4 GM/DL 11.2-15.7 HEMATOCRIT (BEAKER) (test kmrj=873) 22.9 % 34.1-44.9 BLOOD GAS, [id number] 16:50:00* Test Item Value Reference Range Comments PH ARTERIAL (BEAKER) (test xsbi=038) 7.47 7.35-7.45 PCO2 ARTERIAL (BEAKER) (test anfk=725) 43 mmHg 35-45 PO2 ARTERIAL (BEAKER) (test xwqh=392) 49 mmHg 80-90 O2 SATURATION ARTERIAL (BEAKER) (test gjlu=955) 86.9 % 96.0-97.0 HCO3 ARTERIAL (BEAKER) (test zcze=510) 30 mmol/L 21-29 BASE EXCESS ARTERIAL (BEAKER) (test jebr=022) 6.1 mmol/L -2.0-3.0 PATIENT TEMPERATURE (BEAKER) (test ceit=1037) 36.8 C FIO2 (BEAKER) (test yufp=6323) 60.0 % THROMBOELASTOGRAPH (TEG)2018-02-04 14:48:00* Test Item Value Reference Range Comments TEG ACTIVATED CLOTTING TIME (BEAKER) (test wqdl=2998) 19.4 minutes 4.0-7.0 TEG FIBRINOGEN ACTIVITY (BEAKER) (test jwll=4175) 38.2 degrees 61.0-73.0 TEG PLT. AGGREGATION (BEAKER) (test fedw=7736) 67.7 MM 55.0-65.0 TEG FIBRINOLYSIS (BEAKER) (test uxje=0949) 0.0 % 0.0-5.0 TGH ACTIVATED CLOTTING TIME (BEAKER) (test tghw=5733) 8.7 minutes 4.0-7.0 TGH FIBRINOGEN ACTIVITY (BEAKER) (test hroe=2074) 62.8 degrees 61.0-73.0 TGH PLT. AGGREGATION (BEAKER) (test oreq=2746) 57.4 MM 55.0-65.0 TGH FIBRINOLYSIS (BEAKER) (test iadi=9312) 0.0 % 0.0-5.0 HEPARIN ASSAY - [id number] 14:06:00* Test Item Value Reference Range Comments UNFRACTIONATED HEPARIN-ANTI 10A (BEAKER) (test lukv=0546) < u/ml 0.30-0.70 This is a corrected result. Previous result was 0.28 u/ml on 02/04/[address] [place] [address] Recommendations for Monitoring Unfractionated Heparin Therapeutic Range: 0.3-0. 7 u/mL with continuous IV infusionBASIC METABOLIC [id number] 13:42:00* Test Item Value Reference Range Comments SODIUM (BEAKER) (test jvwy=453) 142 meq/L 136-145 POTASSIUM (BEAKER) (test uazn=512) 3.7 meq/L 3.5-5.1 CHLORIDE (BEAKER) (test myra=964) 103 meq/L 98-107 CO2 (BEAKER) (test ltso=931) 28 meq/L 22-29 BLOOD UREA NITROGEN (BEAKER) (test cywk=285) 33 mg/dL 7-21 CREATININE (BEAKER) (test tbeo=664) 1.61 mg/dL 0.57-1.25 GLUCOSE RANDOM (BEAKER) (test gsyi=685) 148 mg/dL 70-105 CALCIUM (BEAKER) (test avqx=010) 9.1 mg/dL 8.4-10.2 EGFR (BEAKER) (test xwng=1113) 34 mL/min/1.73 sq m ESTIMATED GFR IS NOT ACCURATE CREATININE CLEARANCE IN PREDICTING GLOMERULAR FILTRATION RATE. ESTIMATED GFR IS NOT APPLICABLE FOR DIALYSIS PATIENTS. Specimen moderately [id number] 13:27:00* Test Item Value Reference Range Comments FIBRINOGEN LEVEL (BEAKER) (test abyp=691) 399 mg/dl 225-434 [id number] 13:27:00* Test Item Value Reference Range Comments PARTIAL THROMBOPLASTIN TIME (BEAKER) (test xksv=368) 47.4 seconds 22.5-36.0 PROTHROMBIN TIME/[id number] 13:26:00* Test Item Value Reference Range Comments PROTIME (BEAKER) (test unfs=880) 16.2 seconds 11.7-14.7 INR (BEAKER) (test qnhe=963) 1.3 <=5.9 RECOMMENDED COUMADIN/WARFARIN INR THERAPY RANGESSTANDARD DOSE: 2.0 - 3.0 Inclu connie: PROPHYLAXIS for venous thrombosis, systemic embolization; TREATMENT for lupis ous thrombosis and/or pulmonary embolus.HIGH RISK: Target INR is 2.5-3.5 for pat ients with mechanical heart valves.PLATELET [id number] 13:02:00* Test Item Value Reference Range Comments PLATELET COUNT (BEAKER) (test ajhw=746) 87 K/CU MM 150-450 BLOOD GAS, [id number] 12:55:00* Test Item Value Reference Range Comments PH ARTERIAL (BEAKER) (test asra=869) 7.45 7.35-7.45 PCO2 ARTERIAL (BEAKER) (test hqil=418) 44 mmHg 35-45 PO2 ARTERIAL (BEAKER) (test bjyd=062) 59 mmHg 80-90 O2 SATURATION ARTERIAL (BEAKER) (test vutw=837) 91.4 % 96.0-97.0 HCO3 ARTERIAL (BEAKER) (test agdf=424) 30 mmol/L 21-29 BASE EXCESS ARTERIAL (BEAKER) (test cfii=609) 5.0 mmol/L -2.0-3.0 PATIENT TEMPERATURE (BEAKER) (test ruos=1372) 37.0 C FIO2 (BEAKER) (test jsmo=9858) 100.0 % RAD, CHEST, 1 VIEW, NON [id number] 12:30:00Reason for exam:->s/p bronchShould this be performed at the bedside?->YesFINAL REPORT HISTORY : s/p bronch. Comparison: 02/04/2018 performed earlier Comment: Single portable view of the chest was obtained. The cardiac silhouette size is enlarged. Support lines and tubes are unchanged. No pneumothorax is seen. There is diffuse interstitial prominence with some more focal consolidation at the periphery of the left lung. There may be a small left-sided pleural effusion. Signed: Portia Mello MDRepmadison medical center Verified Date/Time: 02/04/2018 12:30:17 Reading Location: [address] Transitional Reading Room THROMBIN [id number] 09:29:00* Test Item Value Reference Range Comments ANTITHROMBIN III ACTIVITY (BEAKER) (test eixu=222) 68.0 % 80.0-120.0 THROMBOELASTOGRAPH (TEG)2018-02-04 08:52:00* Test Item Value Reference Range Comments TEG ACTIVATED CLOTTING TIME (BEAKER) (test qazx=5063) 7.4 minutes 4.0-7.0 TEG FIBRINOGEN ACTIVITY (BEAKER) (test krpn=1717) 49.4 degrees 61.0-73.0 TEG PLT. AGGREGATION (BEAKER) (test ktwd=0214) 63.6 MM 55.0-65.0 TEG FIBRINOLYSIS (BEAKER) (test srek=1134) 0.0 % 0.0-5.0 TGH ACTIVATED CLOTTING TIME (BEAKER) (test qogh=6682) 5.5 minutes 4.0-7.0 TGH FIBRINOGEN ACTIVITY (BEAKER) (test ergj=7024) 64.6 degrees 61.0-73.0 TGH PLT. AGGREGATION (BEAKER) (test wwmh=7712) 58.4 MM 55.0-65.0 TGH FIBRINOLYSIS (BEAKER) (test wxnk=0992) 0.0 % 0.0-5.0 BASIC METABOLIC [id number] 08:41:00* Test Item Value Reference Range Comments SODIUM (BEAKER) (test wbtr=300) 142 meq/L 136-145 POTASSIUM (BEAKER) (test ikge=451) 3.8 meq/L 3.5-5.1 CHLORIDE (BEAKER) (test lbcw=931) 103 meq/L 98-107 CO2 (BEAKER) (test qirt=326) 28 meq/L 22-29 BLOOD UREA NITROGEN (BEAKER) (test aqvz=613) 32 mg/dL 7-21 CREATININE (BEAKER) (test swom=208) 1.64 mg/dL 0.57-1.25 GLUCOSE RANDOM (BEAKER) (test ilwx=221) 144 mg/dL 70-105 CALCIUM (BEAKER) (test rtlz=910) 9.1 mg/dL 8.4-10.2 EGFR (BEAKER) (test owtz=8241) 33 mL/min/1.73 sq m ESTIMATED GFR IS NOT ACCURATE CREATININE CLEARANCE IN PREDICTING GLOMERULAR FILTRATION RATE. ESTIMATED GFR IS NOT APPLICABLE FOR DIALYSIS PATIENTS. Specimen moderately ictericBLOOD GAS, [id number] 08:23:00* Test Item Value Reference Range Comments PH ARTERIAL (BEAKER) (test ldxo=507) 7.50 7.35-7.45 PCO2 ARTERIAL (BEAKER) (test wtjy=569) 38 mmHg 35-45 PO2 ARTERIAL (BEAKER) (test eeru=247) 62 mmHg 80-90 O2 SATURATION ARTERIAL (BEAKER) (test mcyl=979) 94.0 % 96.0-97.0 HCO3 ARTERIAL (BEAKER) (test glii=773) 29 mmol/L 21-29 BASE EXCESS ARTERIAL (BEAKER) (test ogbk=583) 5.0 mmol/L -2.0-3.0 PATIENT TEMPERATURE (BEAKER) (test cocl=9078) 36.5 C FIO2 (BEAKER) (test otrx=9896) 60.0 % BRONCHIAL CULTURE + GRAM [id number] 07:37:00* Test Item Value Reference Range Comments CULTURE (BEAKER) (test vhda=7997) No growth GRAM STAIN RESULT (BEAKER) (test mmys=8654) 1+ WBCs GRAM STAIN RESULT (BEAKER) (test btlw=59534) No organisms seen [id number] 06:24:00* Test Item Value Reference Range Comments PARTIAL THROMBOPLASTIN TIME (BEAKER) (test vcru=356) 41.6 seconds 22.5-36.0 [id number] 05:50:00* Test Item Value Reference Range Comments MAGNESIUM (BEAKER) (test mhcv=039) 2.3 mg/dL 1.6-2.6 BASIC METABOLIC [id number] 05:50:00* Test Item Value Reference Range Comments SODIUM (BEAKER) (test fpbg=823) 141 meq/L 136-145 POTASSIUM (BEAKER) (test ahif=089) 3.8 meq/L 3.5-5.1 CHLORIDE (BEAKER) (test xvoz=729) 105 meq/L 98-107 CO2 (BEAKER) (test yfxs=992) 27 meq/L 22-29 BLOOD UREA NITROGEN (BEAKER) (test ezro=218) 32 mg/dL 7-21 CREATININE (BEAKER) (test bmqe=556) 1.59 mg/dL 0.57-1.25 GLUCOSE RANDOM (BEAKER) (test cboj=522) 142 mg/dL 70-105 CALCIUM (BEAKER) (test pibm=065) 9.2 mg/dL 8.4-10.2 EGFR (BEAKER) (test qecp=3673) 34 mL/min/1.73 sq m ESTIMATED GFR IS NOT ACCURATE CREATININE CLEARANCE IN PREDICTING GLOMERULAR FILTRATION RATE. ESTIMATED GFR IS NOT APPLICABLE FOR DIALYSIS PATIENTS. Specimen moderately ictericHEPATIC FUNCTION [id number] 05:50:00* Test Item Value Reference Range Comments TOTAL PROTEIN (BEAKER) (test zjzq=371) 4.8 gm/dL 6.0-8.3 ALBUMIN (BEAKER) (test utuq=5436) 3.2 g/dL 3.5-5.0 BILIRUBIN TOTAL (BEAKER) (test jbos=202) 4.7 mg/dL 0.2-1.2 BILIRUBIN DIRECT (BEAKER) (test ivev=730) 3.1 mg/dL 0.1-0.5 ALKALINE PHOSPHATASE (BEAKER) (test ztvq=956) 67 U/L 40-150 AST (SGOT) (BEAKER) (test hinf=526) 47 U/L 5-34 ALT (SGPT) (BEAKER) (test omym=252) 23 U/L 6-55 Specimen moderately ictericLACTATE DEHYDROGENASE (LDH)2018-02-04 05:50:00* Test Item Value Reference Range Comments LACTATE DEHYDROGENASE (BEAKER) (test bwxt=893) 380 U/L 125-220 LACTIC ACID, ARTERIAL, WHOLE [id number] 05:14:00* Test Item Value Reference Range Comments LACTATE BLOOD ARTERIAL (2) (BEAKER) (test pfog=4738) 1.4 mmol/L 0.5-2.2 Effective 03/10/2016: Units/Reference Range ChangeNew: 0.5-2.2 mmol/L Previous: 5 -20 mg/dLSpecimen slightly ictericOXYGEN SATURATION, [id number] 05:12:00 * Test Item Value Reference Range Comments O2 SATURATION (MEASURED) (BEAKER) (test klpg=9445) 79.1 % BLOOD GAS, [id number] 05:06:00* Test Item Value Reference Range Comments PH ARTERIAL (BEAKER) (test xisg=909) 7.47 7.35-7.45 PCO2 ARTERIAL (BEAKER) (test jbcq=106) 41 mmHg 35-45 PO2 ARTERIAL (BEAKER) (test npsp=499) 74 mmHg 80-90 O2 SATURATION ARTERIAL (BEAKER) (test bxeu=219) 95.8 % 96.0-97.0 HCO3 ARTERIAL (BEAKER) (test jjri=160) 30 mmol/L 21-29 BASE EXCESS ARTERIAL (BEAKER) (test fgbw=998) 5.3 mmol/L -2.0-3.0 PATIENT TEMPERATURE (BEAKER) (test nypp=6621) 36.6 C FIO2 (BEAKER) (test swrw=2654) 60.0 % [id number] 05:06:00* Test Item Value Reference Range Comments FIBRINOGEN LEVEL (BEAKER) (test zwja=540) 434 mg/dl 225-434 PROTHROMBIN [id number] 05:06:00* Test Item Value Reference Range Comments PROTIME (BEAKER) (test zlnx=117) 15.6 seconds 11.7-14.7 INR (BEAKER) (test wkmk=644) 1.2 <=5.9 RECOMMENDED COUMADIN/WARFARIN INR THERAPY RANGESSTANDARD DOSE: 2.0 - 3.0 Inclu connie: PROPHYLAXIS for venous thrombosis, systemic embolization; TREATMENT for lupis ous thrombosis and/or pulmonary embolus.HIGH RISK: Target INR is 2.5-3.5 for pat ients with mechanical heart valves.CALCIUM, [id number] 05:04:00* Test Item Value Reference Range Comments CALCIUM IONIZED (BEAKER) (test uwwv=889) 1.18 mmol/L 1.12-1.27 PH, BLOOD (BEAKER) (test gjvc=4050) 7.46 CBC (HEMOGRAM ONLY)2018-02-04 05:00:00* Test Item Value Reference Range Comments WHITE BLOOD CELL COUNT (BEAKER) (test ycvk=806) 9.3 K/ L 3.5-10.5 RED BLOOD CELL COUNT (BEAKER) (test kbnp=953) 2.76 M/ L 3.93-5.22 HEMOGLOBIN (BEAKER) (test efxn=412) 8.0 GM/DL 11.2-15.7 HEMATOCRIT (BEAKER) (test imrc=311) 24.9 % 34.1-44.9 MEAN CORPUSCULAR VOLUME (BEAKER) (test hvvo=260) 90.2 fL 79.4-94.8 MEAN CORPUSCULAR HEMOGLOBIN (BEAKER) (test nsno=509) 29.0 pg 25.6-32.2 MEAN CORPUSCULAR HEMOGLOBIN CONC (BEAKER) (test obbf=989) 32.1 GM/DL 32.2-35.5 RED CELL DISTRIBUTION WIDTH (BEAKER) (test kbla=990) 15.8 % 11.7-14.4 PLATELET COUNT (BEAKER) (test kgfx=637) 59 K/CU MM 150-450 MEAN PLATELET VOLUME (BEAKER) (test twgx=478) 10.1 fL 9.4-12.3 NUCLEATED RED BLOOD CELLS (BEAKER) (test ryqs=797) 0 /100 WBC 0-0 RAD, CHEST, 1 VIEW, NON [id number] 04:43:00Reason for exam:-> ECMO/intubatedShould this be performed at the bedside?->YesIs the patient ?->UnknownFINAL REPORT CLINICAL INDICATION: Support lines. Comparison: 02/03/2018 The cardiomediastinal contours are stable. Central pulmonary vascular congestion and left greater than right parenchymal and left pleural opacities are similar within variation of acquisition technique. There is no pneumothorax. Support lines are stable. Signed: Abel cShwartz MDReport Verified Date/Time: 02/04/2018 04:43:15 Reading Location: [address] Reading Room D GAS, [id number] 02:34:00* Test Item Value Reference Range Comments PH ARTERIAL (BEAKER) (test ngat=616) 7.43 7.35-7.45 PCO2 ARTERIAL (BEAKER) (test ypdq=142) 47 mmHg 35-45 PO2 ARTERIAL (BEAKER) (test fzym=528) 413 mmHg 80-90 O2 SATURATION ARTERIAL (BEAKER) (test rrvq=805) 99.8 % 96.0-97.0 HCO3 ARTERIAL (BEAKER) (test xuvl=097) 31 mmol/L 21-29 BASE EXCESS ARTERIAL (BEAKER) (test csgh=344) 5.4 mmol/L -2.0-3.0 PATIENT TEMPERATURE (BEAKER) (test sfse=2754) 36.5 C FIO2 (BEAKER) (test rsyz=5643) 100.0 % BASIC METABOLIC [id number] 00:57:00* Test Item Value Reference Range Comments SODIUM (BEAKER) (test nufp=979) 143 meq/L 136-145 POTASSIUM (BEAKER) (test nwvv=789) 3.7 meq/L 3.5-5.1 CHLORIDE (BEAKER) (test twpx=946) 106 meq/L 98-107 CO2 (BEAKER) (test ttag=549) 26 meq/L 22-29 BLOOD UREA NITROGEN (BEAKER) (test ssit=511) 32 mg/dL 7-21 CREATININE (BEAKER) (test vmfa=158) 1.64 mg/dL 0.57-1.25 GLUCOSE RANDOM (BEAKER) (test hkhv=531) 140 mg/dL 70-105 CALCIUM (BEAKER) (test fjuc=398) 9.2 mg/dL 8.4-10.2 EGFR (BEAKER) (test kdmo=7320) 33 mL/min/1.73 sq m ESTIMATED GFR IS NOT ACCURATE CREATININE CLEARANCE IN PREDICTING GLOMERULAR FILTRATION RATE. ESTIMATED GFR IS NOT APPLICABLE FOR DIALYSIS PATIENTS. Specimen moderately [id number] 00:56:00* Test Item Value Reference Range Comments PARTIAL THROMBOPLASTIN TIME (BEAKER) (test yhql=629) 40.2 seconds 22.5-36.0 PROTHROMBIN TIME/[id number] 00:55:00* Test Item Value Reference Range Comments PROTIME (BEAKER) (test foaf=416) 16.0 seconds 11.7-14.7 INR (BEAKER) (test nniw=205) 1.3 <=5.9 RECOMMENDED COUMADIN/WARFARIN INR THERAPY RANGESSTANDARD DOSE: 2.0 - 3.0 Inclu connie: PROPHYLAXIS for venous thrombosis, systemic embolization; TREATMENT for lupis ous thrombosis and/or pulmonary embolus.HIGH RISK: Target INR is 2.5-3.5 for pat ients with mechanical heart valves.[id number] 00:55:00* Test Item Value Reference Range Comments FIBRINOGEN LEVEL (BEAKER) (test ewtv=639) 428 mg/dl 225-434 PLATELET [id number] 00:45:00* Test Item Value Reference Range Comments PLATELET COUNT (BEAKER) (test wnig=529) 66 K/CU MM 150-450 BLOOD GAS, [id number] 00:36:00* Test Item Value Reference Range Comments PH ARTERIAL (BEAKER) (test avrt=048) 7.48 7.35-7.45 PCO2 ARTERIAL (BEAKER) (test lusw=486) 40 mmHg 35-45 PO2 ARTERIAL (BEAKER) (test gqdj=991) 72 mmHg 80-90 O2 SATURATION ARTERIAL (BEAKER) (test sbqz=246) 95.9 % 96.0-97.0 HCO3 ARTERIAL (BEAKER) (test veul=240) 30 mmol/L 21-29 BASE EXCESS ARTERIAL (BEAKER) (test ifjv=359) 5.5 mmol/L -2.0-3.0 PATIENT TEMPERATURE (BEAKER) (test vcsg=5259) 36.3 C FIO2 (BEAKER) (test axkx=0965) 60.0 % ANAEROBIC [id number] 00:03:00* Test Item Value Reference Range Comments CULTURE (BEAKER) (test jkhi=9731) No anaerobes isolated [id number] 20:46:00* Test Item Value Reference Range Comments MAGNESIUM (BEAKER) (test sykv=892) 2.0 mg/dL 1.6-2.6 [id number] 20:46:00* Test Item Value Reference Range Comments SODIUM (BEAKER) (test vstw=416) 144 meq/L 136-145 BASIC METABOLIC [id number] 20:46:00* Test Item Value Reference Range Comments SODIUM (BEAKER) (test avdi=334) 144 meq/L 136-145 POTASSIUM (BEAKER) (test eudo=195) 3.8 meq/L 3.5-5.1 CHLORIDE (BEAKER) (test trvr=871) 106 meq/L 98-107 CO2 (BEAKER) (test cqmt=371) 26 meq/L 22-29 BLOOD UREA NITROGEN (BEAKER) (test shuz=020) 30 mg/dL 7-21 CREATININE (BEAKER) (test lbsd=046) 1.65 mg/dL 0.57-1.25 GLUCOSE RANDOM (BEAKER) (test khhl=817) 142 mg/dL 70-105 CALCIUM (BEAKER) (test fosb=232) 9.1 mg/dL 8.4-10.2 EGFR (BEAKER) (test qihb=5484) 33 mL/min/1.73 sq m ESTIMATED GFR IS NOT ACCURATE CREATININE CLEARANCE IN PREDICTING GLOMERULAR FILTRATION RATE. ESTIMATED GFR IS NOT APPLICABLE FOR DIALYSIS PATIENTS. Specimen moderately ictericBLOOD GAS, [id number] 20:30:00* Test Item Value Reference Range Comments PH ARTERIAL (BEAKER) (test bley=978) 7.45 7.35-7.45 PCO2 ARTERIAL (BEAKER) (test fabr=905) 42 mmHg 35-45 PO2 ARTERIAL (BEAKER) (test kapv=626) 65 mmHg 80-90 O2 SATURATION ARTERIAL (BEAKER) (test ajyu=762) 93.8 % 96.0-97.0 HCO3 ARTERIAL (BEAKER) (test efax=925) 29 mmol/L 21-29 BASE EXCESS ARTERIAL (BEAKER) (test bfdy=684) 4.4 mmol/L -2.0-3.0 PATIENT TEMPERATURE (BEAKER) (test owqe=5496) 36.6 C FIO2 (BEAKER) (test xotw=3830) 60.0 % CALCIUM, [id number] 20:30:00* Test Item Value Reference Range Comments CALCIUM IONIZED (BEAKER) (test nueu=368) 1.16 mmol/L 1.12-1.27 PH, BLOOD (BEAKER) (test awrr=5949) 7.45 THROMBOELASTOGRAPH (TEG)2018-02-03 17:59:00* Test Item Value Reference Range Comments TEG ACTIVATED CLOTTING TIME (BEAKER) (test ixxe=5861) 7.7 minutes 4.0-7.0 TEG FIBRINOGEN ACTIVITY (BEAKER) (test keqg=1337) 62.3 degrees 61.0-73.[address] AGGREGATION (BEAKER) (test dlbn=1996) 59.4 MM 55.0-65.0 TEG FIBRINOLYSIS (BEAKER) (test qguk=0610) 0.0 % 0.0-5.0 TGH ACTIVATED CLOTTING TIME (BEAKER) (test funu=8299) 6.6 minutes 4.0-7.0 TGH FIBRINOGEN ACTIVITY (BEAKER) (test wcyc=8274) 65.9 degrees 61.0-73.0 TGH PLT. AGGREGATION (BEAKER) (test bhmg=2173) 54.5 MM 55.0-65.0 TGH FIBRINOLYSIS (BEAKER) (test ewau=1032) 0.0 % 0.0-5.0 [id number] 16:58:00* Test Item Value Reference Range Comments MAGNESIUM (BEAKER) (test lbfk=979) 2.1 mg/dL 1.6-2.6 [id number] 16:58:00* Test Item Value Reference Range Comments SODIUM (BEAKER) (test adpg=950) 143 meq/L 136-145 BASIC METABOLIC [id number] 16:58:00* Test Item Value Reference Range Comments SODIUM (BEAKER) (test rghp=138) 143 meq/L 136-145 POTASSIUM (BEAKER) (test jace=958) 4.1 meq/L 3.5-5.1 CHLORIDE (BEAKER) (test tedj=064) 107 meq/L 98-107 CO2 (BEAKER) (test hcnv=389) 28 meq/L 22-29 BLOOD UREA NITROGEN (BEAKER) (test nsgn=611) 27 mg/dL 7-21 CREATININE (BEAKER) (test vpzp=533) 1.56 mg/dL 0.57-1.25 GLUCOSE RANDOM (BEAKER) (test clcy=958) 144 mg/dL 70-105 CALCIUM (BEAKER) (test rwhu=226) 9.3 mg/dL 8.4-10.2 EGFR (BEAKER) (test jtwu=5714) 35 mL/min/1.73 sq m ESTIMATED GFR IS NOT ACCURATE CREATININE CLEARANCE IN PREDICTING GLOMERULAR FILTRATION RATE. ESTIMATED GFR IS NOT APPLICABLE FOR DIALYSIS PATIENTS. Specimen slightly ictericPROTHROMBIN TIME/[id number] 16:49:00* Test Item Value Reference Range Comments PROTIME (BEAKER) (test tmqx=925) 17.3 seconds 11.7-14.7 INR (BEAKER) (test qjrq=897) 1.4 <=5.9 RECOMMENDED COUMADIN/WARFARIN INR THERAPY RANGESSTANDARD DOSE: 2.0 - 3.0 Inclu connie: PROPHYLAXIS for venous thrombosis, systemic embolization; TREATMENT for lupis ous thrombosis and/or pulmonary embolus.HIGH RISK: Target INR is 2.5-3.5 for pat ients with mechanical heart valves.[id number] 16:49:00* Test Item Value Reference Range Comments FIBRINOGEN LEVEL (BEAKER) (test ouvw=177) 429 mg/dl 225-434 [id number] 16:49:00* Test Item Value Reference Range Comments PARTIAL THROMBOPLASTIN TIME (BEAKER) (test xkfa=724) 38.1 seconds 22.5-36.0 SODIUM NA-STAT [id number] 16:37:00* Test Item Value Reference Range Comments SODIUM (BEAKER) (test ixni=107) 139 meq/L 135-148 POTASSIUM-STAT [id number] 16:37:00* Test Item Value Reference Range Comments POTASSIUM (BEAKER) (test uxiu=031) 4.0 meq/L 3.6-5.5 BLOOD GAS, [id number] 16:37:00* Test Item Value Reference Range Comments PH ARTERIAL (BEAKER) (test ttly=773) 7.44 7.35-7.45 PCO2 ARTERIAL (BEAKER) (test rxog=753) 45 mmHg 35-45 PO2 ARTERIAL (BEAKER) (test bjlx=505) 70 mmHg 80-90 O2 SATURATION ARTERIAL (BEAKER) (test socy=757) 94.8 % 96.0-97.0 HCO3 ARTERIAL (BEAKER) (test tqye=993) 30 mmol/L 21-29 BASE EXCESS ARTERIAL (BEAKER) (test wmsc=793) 5.0 mmol/L -2.0-3.0 PATIENT TEMPERATURE (BEAKER) (test tqqx=7791) 36.7 C FIO2 (BEAKER) (test bdlp=5063) 60.0 % GLUCOSE-STAT [id number] 16:37:00* Test Item Value Reference Range Comments GLUCOSE RANDOM (BEAKER) (test igko=567) 134 mg/dL 70-110 HGB/HCT (H&H) - STAT [id number] 16:37:00* Test Item Value Reference Range Comments HEMOGLOBIN (BEAKER) (test krid=801) 10.4 g/dL 12.0-15.0 HEMATOCRIT (BEAKER) (test khqh=480) 31.0 % 36.0-45.0 CALCIUM, [id number] 16:37:00* Test Item Value Reference Range Comments CALCIUM IONIZED (BEAKER) (test acdh=769) 1.18 mmol/L 1.12-1.27 PH, BLOOD (BEAKER) (test eczw=9721) 7.44 GLUCOSE-STAT [id number] 13:32:00* Test Item Value Reference Range Comments GLUCOSE RANDOM (BEAKER) (test quuy=254) 134 mg/dL 70-110 HGB/HCT (H&H) - STAT [id number] 13:32:00* Test Item Value Reference Range Comments HEMOGLOBIN (BEAKER) (test flab=868) 9.3 g/dL 12.0-15.0 HEMATOCRIT (BEAKER) (test mzae=239) 27.0 % 36.0-45.0 POTASSIUM-STAT [id number] 13:32:00* Test Item Value Reference Range Comments POTASSIUM (BEAKER) (test sgyt=462) 3.4 meq/L 3.6-5.5 BLOOD GAS, [id number] 13:31:00* Test Item Value Reference Range Comments PH ARTERIAL (BEAKER) (test mzlz=602) 7.45 7.35-7.45 PCO2 ARTERIAL (BEAKER) (test hahb=930) 44 mmHg 35-45 PO2 ARTERIAL (BEAKER) (test ryje=073) 85 mmHg 80-90 O2 SATURATION ARTERIAL (BEAKER) (test pror=861) 96.9 % 96.0-97.0 HCO3 ARTERIAL (BEAKER) (test gdpq=642) 30 mmol/L 21-29 BASE EXCESS ARTERIAL (BEAKER) (test zmyo=192) 5.5 mmol/L -2.0-3.0 PATIENT TEMPERATURE (BEAKER) (test vqss=4877) 36.7 C FIO2 (BEAKER) (test fawz=3591) 60.0 % SODIUM NA-STAT [id number] 13:31:00* Test Item Value Reference Range Comments SODIUM (BEAKER) (test tdzw=958) 139 meq/L 135-148 BLOOD GAS, [id number] 13:31:00* Test Item Value Reference Range Comments PH ARTERIAL (BEAKER) (test krbm=981) 7.45 7.35-7.45 PCO2 ARTERIAL (BEAKER) (test hcjw=764) 44 mmHg 35-45 PO2 ARTERIAL (BEAKER) (test bthi=996) 85 mmHg 80-90 O2 SATURATION ARTERIAL (BEAKER) (test udkh=313) 96.9 % 96.0-97.0 HCO3 ARTERIAL (BEAKER) (test jrpo=267) 30 mmol/L 21-29 BASE EXCESS ARTERIAL (BEAKER) (test imha=862) 5.5 mmol/L -2.0-3.0 PATIENT TEMPERATURE (BEAKER) (test xyzy=0734) 36.7 C FIO2 (BEAKER) (test owsp=8903) 60.0 % CALCIUM, [id number] 13:30:00* Test Item Value Reference Range Comments CALCIUM IONIZED (BEAKER) (test tkqk=839) 1.19 mmol/L 1.12-1.27 PH, BLOOD (BEAKER) (test zaat=5606) 7.45 POCT-GLUCOSE [id number] 13:04:00* Test Item Value Reference Range Comments POC-GLUCOSE METER (BEAKER) (test dufr=7351) 127 mg/dL 70-110 TESTED AT [address] [place] [address] POCT-GLUCOSE [id number] 13:04:00* Test Item Value Reference Range Comments POC-GLUCOSE METER (BEAKER) (test zoko=6586) 89 mg/dL 70-110 TESTED AT [facility] [address] [facility] [address] VANCOMYCIN LEVEL, [id number] 10:29:00* Test Item Value Reference Range Comments VANCOMYCIN TROUGH (BEAKER) (test bgaf=700) 21.5 ug/mL 10.0-20.0 IMMEDIATELY PRIOR TO NEXT DOSEANTITHROMBIN [id number] 09:41:00* Test Item Value Reference Range Comments ANTITHROMBIN III ACTIVITY (BEAKER) (test ycyk=201) 63.0 % 80.0-120.0 [id number] 08:59:00* Test Item Value Reference Range Comments POTASSIUM (BEAKER) (test odik=493) 3.6 meq/L 3.5-5.1 [id number] 08:59:00* Test Item Value Reference Range Comments MAGNESIUM (BEAKER) (test dwhp=530) 2.3 mg/dL 1.6-2.6 [id number] 08:59:00* Test Item Value Reference Range Comments SODIUM (BEAKER) (test yylw=933) 143 meq/L 136-145 BASIC METABOLIC [id number] 08:59:00* Test Item Value Reference Range Comments SODIUM (BEAKER) (test khyz=385) 143 meq/L 136-145 POTASSIUM (BEAKER) (test dybs=230) 3.6 meq/L 3.5-5.1 CHLORIDE (BEAKER) (test lqpe=092) 107 meq/L 98-107 CO2 (BEAKER) (test vwpb=666) 29 meq/L 22-29 BLOOD UREA NITROGEN (BEAKER) (test eutf=907) 27 mg/dL 7-21 CREATININE (BEAKER) (test roze=604) 1.51 mg/dL 0.57-1.25 GLUCOSE RANDOM (BEAKER) (test cnfq=219) 147 mg/dL 70-105 CALCIUM (BEAKER) (test wxvc=527) 9.5 mg/dL 8.4-10.2 EGFR (BEAKER) (test oitb=0068) 36 mL/min/1.73 sq m ESTIMATED GFR IS NOT ACCURATE CREATININE CLEARANCE IN PREDICTING GLOMERULAR FILTRATION RATE. ESTIMATED GFR IS NOT APPLICABLE FOR DIALYSIS PATIENTS. Specimen moderately ictericLACTIC ACID, ARTERIAL, WHOLE [id number] 08:54:00 * Test Item Value Reference Range Comments LACTATE BLOOD ARTERIAL (2) (BEAKER) (test yrjk=7281) 1.7 mmol/L 0.5-2.2 Effective 03/10/2016: Units/Reference Range ChangeNew: 0.5-2.2 mmol/L Previous: 5 -20 mg/dLSpecimen slightly [id number] 08:53:00* Test Item Value Reference Range Comments PARTIAL THROMBOPLASTIN TIME (BEAKER) (test cydw=514) 33.1 seconds 22.5-36.0 PROTHROMBIN TIME/[id number] 08:52:00* Test Item Value Reference Range Comments PROTIME (BEAKER) (test cbpy=379) 17.5 seconds 11.7-14.7 INR (BEAKER) (test cniw=317) 1.4 <=5.9 RECOMMENDED COUMADIN/WARFARIN INR THERAPY RANGESSTANDARD DOSE: 2.0 - 3.0 Inclu connie: PROPHYLAXIS for venous thrombosis, systemic embolization; TREATMENT for lupis ous thrombosis and/or pulmonary embolus.HIGH RISK: Target INR is 2.5-3.5 for pat ients with mechanical heart valves.[id number] 08:52:00* Test Item Value Reference Range Comments FIBRINOGEN LEVEL (BEAKER) (test bpek=649) 453 mg/dl 225-434 PLATELET [id number] 08:38:00* Test Item Value Reference Range Comments PLATELET COUNT (BEAKER) (test xvex=904) 88 K/CU MM 150-450 HEMOGLOBIN AND [id number] 08:38:00* Test Item Value Reference Range Comments HEMOGLOBIN (BEAKER) (test kaoj=911) 9.2 GM/DL 11.2-15.7 HEMATOCRIT (BEAKER) (test cbyl=788) 27.7 % 34.1-44.9 OXYGEN SATURATION, [id number] 08:37:00* Test Item Value Reference Range Comments O2 SATURATION (MEASURED) (BEAKER) (test xthd=7168) 75.6 % GLUCOSE-STAT [id number] 08:34:00* Test Item Value Reference Range Comments GLUCOSE RANDOM (BEAKER) (test xmzu=848) 141 mg/dL 70-110 BLOOD GAS, [id number] 08:32:00* Test Item Value Reference Range Comments PH ARTERIAL (BEAKER) (test gwhk=873) 7.47 7.35-7.45 PCO2 ARTERIAL (BEAKER) (test bxwi=063) 41 mmHg 35-45 PO2 ARTERIAL (BEAKER) (test beby=169) 99 mmHg 80-90 O2 SATURATION ARTERIAL (BEAKER) (test bsdj=683) 97.9 % 96.0-97.0 HCO3 ARTERIAL (BEAKER) (test vkam=356) 29 mmol/L 21-29 BASE EXCESS ARTERIAL (BEAKER) (test qckw=996) 5.1 mmol/L -2.0-3.0 PATIENT TEMPERATURE (BEAKER) (test smwr=8914) 36.6 C FIO2 (BEAKER) (test hnar=7307) 80.0 % CALCIUM, [id number] 08:31:00* Test Item Value Reference Range Comments CALCIUM IONIZED (BEAKER) (test zpoj=572) 1.22 mmol/L 1.12-1.27 PH, BLOOD (BEAKER) (test gdmo=7948) 7.47 SURGICALLY OBTAINED CULTURE + GRAM [id number] 08:31:00* Test Item Value Reference Range Comments CULTURE (BEAKER) (test uuak=7787) No growth GRAM STAIN RESULT (BEAKER) (test letl=9812) <1+ WBCs GRAM STAIN RESULT (BEAKER) (test uisw=79930) No organisms seen SPUTUM CULTURE + GRAM [id number] 08:16:00* Test Item Value Reference Range Comments CULTURE (BEAKER) (test birg=7238) <1+ Normal respiratory alan present GRAM STAIN RESULT (BEAKER) (test boff=0889) 3+ White blood cells seen GRAM STAIN RESULT (BEAKER) (test ycok=30769) 0-5 epithelial cells GRAM STAIN RESULT (BEAKER) (test bgkm=09551) No organisms seen BLOOD GAS, [id number] 06:27:00* Test Item Value Reference Range Comments PH ARTERIAL (BEAKER) (test duoz=129) 7.49 7.35-7.45 PCO2 ARTERIAL (BEAKER) (test oifi=268) 38 mmHg 35-45 PO2 ARTERIAL (BEAKER) (test ypyw=151) 99 mmHg 80-90 O2 SATURATION ARTERIAL (BEAKER) (test abwg=377) 98.0 % 96.0-97.0 HCO3 ARTERIAL (BEAKER) (test nsfq=208) 29 mmol/L 21-29 BASE EXCESS ARTERIAL (BEAKER) (test hbif=472) 4.7 mmol/L -2.0-3.0 PATIENT TEMPERATURE (BEAKER) (test ruim=8182) 36.5 C FIO2 (BEAKER) (test wghk=6908) 100.0 % GLUCOSE-STAT [id number] 06:27:00* Test Item Value Reference Range Comments GLUCOSE RANDOM (BEAKER) (test ubea=876) 145 mg/dL 70-110 HEPARIN ASSAY - [id number] 06:09:00* Test Item Value Reference Range Comments UNFRACTIONATED HEPARIN-ANTI 10A (BEAKER) (test xbci=3141) < u/ml 0.30-0.70 Recommendations for Monitoring Unfractionated Heparin Therapeutic Range: 0.3-0. 7 u/mL with continuous IV infusionRAD, CHEST, 1 VIEW, NON [id number] 06:06:00Reason for exam:->ECMO/intubatedShould this be performed at the bedside?->YesIs the patient ?->UnknownFINAL REPORT Chest one view. Clinical history: ECMO/intubated Comparison: Chest radiograph 02/02/2018. Technique: A single frontal view of the chest was obtained. Findings: Cardiomediastinal contours are unchanged. Support devices are in stable position. There is diffuse bilateral airspace disease, left greater than right have not significantly changed. There is persistent left pleural thickening and/or effusion. There is no pneumothorax. Signed: Zoë Díazeport Verified Date/Time: 02/03/2018 06:06:27 Reading Location: [facility] C013T Transitional Reading Room OMYCIN LEVEL, [id number] 05:29:00* Test Item Value Reference Range Comments VANCOMYCIN RANDOM (BEAKER) (test xnge=921) 17.8 ug/mL Reference Range: No NormalsFIBRIN SOLUBLE [id number] 05:18:00* Test Item Value Reference Range Comments FIBRIN SOLUBLE MONOMER (BEAKER) (test mnwl=7568) POS 1+ [id number] 05:02:00* Test Item Value Reference Range Comments MAGNESIUM (BEAKER) (test rome=205) 2.4 mg/dL 1.6-2.6 BASIC METABOLIC [id number] 05:02:00* Test Item Value Reference Range Comments SODIUM (BEAKER) (test zpdo=048) 143 meq/L 136-145 POTASSIUM (BEAKER) (test kupi=674) 4.0 meq/L 3.5-5.1 CHLORIDE (BEAKER) (test frcn=170) 109 meq/L 98-107 CO2 (BEAKER) (test xydw=426) 24 meq/L 22-29 BLOOD UREA NITROGEN (BEAKER) (test obpd=664) 25 mg/dL 7-21 CREATININE (BEAKER) (test rhnb=601) 1.39 mg/dL 0.57-1.25 GLUCOSE RANDOM (BEAKER) (test jqiv=005) 162 mg/dL 70-105 CALCIUM (BEAKER) (test ehxw=367) 9.3 mg/dL 8.4-10.2 EGFR (BEAKER) (test atea=2655) 40 mL/min/1.73 sq m ESTIMATED GFR IS NOT ACCURATE CREATININE CLEARANCE IN PREDICTING GLOMERULAR FILTRATION RATE. ESTIMATED GFR IS NOT APPLICABLE FOR DIALYSIS PATIENTS. Specimen slightly ictericHEPATIC FUNCTION [id number] 05:02:00* Test Item Value Reference Range Comments TOTAL PROTEIN (BEAKER) (test atpq=970) 4.1 gm/dL 6.0-8.3 ALBUMIN (BEAKER) (test rnwh=9808) 2.5 g/dL 3.5-5.0 BILIRUBIN TOTAL (BEAKER) (test iimp=273) 3.8 mg/dL 0.2-1.2 BILIRUBIN DIRECT (BEAKER) (test iegd=867) 1.7 mg/dL 0.1-0.5 ALKALINE PHOSPHATASE (BEAKER) (test czoc=169) 50 U/L 40-150 AST (SGOT) (BEAKER) (test hmak=631) 53 U/L 5-34 ALT (SGPT) (BEAKER) (test hurj=258) 19 U/L 6-55 Specimen slightly ictericLACTATE DEHYDROGENASE (LDH)2018-02-03 05:02:00* Test Item Value Reference Range Comments LACTATE DEHYDROGENASE (BEAKER) (test gspi=816) 422 U/L 125-220 [id number] 04:37:00* Test Item Value Reference Range Comments D-DIMER QUANTITATIVE (BEAKER) (test lfpt=832) 3.75 MG/L FEU <0.50 Intended Use: The D-Dimer Assay can be used to aid in the diagnosis of Deep Vein Thrombosis (DVT) and Pulmonary Embolism Disease (PED).In patients with low pre- test probability, various studies concerning STA Liatest D-dimer test have repor emily that with a cutoff value of 0.50 MG/L FEU, the Negative Predictive Value (ELEVATED WORK PLATFORM OPERATOR V) regarding the exclusion of thrombosis is within 95-100% range.BLOOD GAS, [id number] 04:31:00* Test Item Value Reference Range Comments PH ARTERIAL (BEAKER) (test efai=506) 7.35 7.35-7.45 PCO2 ARTERIAL (BEAKER) (test yjqn=871) 53 mmHg 35-45 PO2 ARTERIAL (BEAKER) (test xfmf=175) 406 mmHg 80-90 O2 SATURATION ARTERIAL (BEAKER) (test upai=349) 99.8 % 96.0-97.0 HCO3 ARTERIAL (BEAKER) (test oohn=720) 29 mmol/L 21-29 BASE EXCESS ARTERIAL (BEAKER) (test kbif=560) 2.4 mmol/L -2.0-3.0 PATIENT TEMPERATURE (BEAKER) (test tiyv=1296) 36.4 C FIO2 (BEAKER) (test zdfw=2078) 100.0 % [id number] 04:29:00* Test Item Value Reference Range Comments PARTIAL THROMBOPLASTIN TIME (BEAKER) (test dpdi=069) 32.8 seconds 22.5-36.0 LACTIC ACID, ARTERIAL, WHOLE [id number] 04:29:00* Test Item Value Reference Range Comments LACTATE BLOOD ARTERIAL (2) (BEAKER) (test mzsy=4337) 1.6 mmol/L 0.5-2.2 Specimen slightly hemolyzed Effective 03/10/2016: Units/Reference Range ChangeNew: 0.5-2.2 mmol/L Previous: 5 -20 mg/dLSpecimen slightly [id number] 04:28:00* Test Item Value Reference Range Comments FIBRINOGEN LEVEL (BEAKER) (test vobg=411) 419 mg/dl 225-434 PROTHROMBIN TIME/[id number] 04:27:00* Test Item Value Reference Range Comments PROTIME (BEAKER) (test ruov=836) 18.3 seconds 11.7-14.7 INR (BEAKER) (test poob=814) 1.5 <=5.9 RECOMMENDED COUMADIN/WARFARIN INR THERAPY RANGESSTANDARD DOSE: 2.0 - 3.0 Inclu connie: PROPHYLAXIS for venous thrombosis, systemic embolization; TREATMENT for lupis ous thrombosis and/or pulmonary embolus.HIGH RISK: Target INR is 2.5-3.5 for pat ients with mechanical heart valves.CBC (HEMOGRAM ONLY)2018-02-03 04:16:00* Test Item Value Reference Range Comments WHITE BLOOD CELL COUNT (BEAKER) (test hzzd=349) 8.2 K/ L 3.5-10.5 RED BLOOD CELL COUNT (BEAKER) (test zshg=852) 2.97 M/ L 3.93-5.22 HEMOGLOBIN (BEAKER) (test wbji=757) 8.6 GM/DL 11.2-15.7 HEMATOCRIT (BEAKER) (test gbej=934) 26.7 % 34.1-44.9 MEAN CORPUSCULAR VOLUME (BEAKER) (test qawq=976) 89.9 fL 79.4-94.8 MEAN CORPUSCULAR HEMOGLOBIN (BEAKER) (test slpx=502) 29.0 pg 25.6-32.2 MEAN CORPUSCULAR HEMOGLOBIN CONC (BEAKER) (test qfzq=713) 32.2 GM/DL 32.2-35.5 RED CELL DISTRIBUTION WIDTH (BEAKER) (test zqya=002) 15.4 % 11.7-14.4 PLATELET COUNT (BEAKER) (test mlqb=150) 96 K/CU MM 150-450 MEAN PLATELET VOLUME (BEAKER) (test kiyc=206) 10.1 fL 9.4-12.3 NUCLEATED RED BLOOD CELLS (BEAKER) (test wmfs=935) 0 /100 WBC 0-0 CALCIUM, [id number] 04:14:00* Test Item Value Reference Range Comments CALCIUM IONIZED (BEAKER) (test hdzb=488) 1.27 mmol/L 1.12-1.27 PH, BLOOD (BEAKER) (test hnmk=7723) 7.35 BLOOD GAS, [id number] 04:14:00* Test Item Value Reference Range Comments PH ARTERIAL (BEAKER) (test qvbp=131) 7.36 7.35-7.45 PCO2 ARTERIAL (BEAKER) (test buwp=694) 53 mmHg 35-45 PO2 ARTERIAL (BEAKER) (test wvqx=400) 82 mmHg 80-90 O2 SATURATION ARTERIAL (BEAKER) (test vpsc=895) 95.8 % 96.0-97.0 HCO3 ARTERIAL (BEAKER) (test ichp=407) 30 mmol/L 21-29 BASE EXCESS ARTERIAL (BEAKER) (test lsjm=590) 3.2 mmol/L -2.0-3.0 PATIENT TEMPERATURE (BEAKER) (test qxhb=9733) 36.4 C FIO2 (BEAKER) (test wwns=9181) 100.0 % OXYGEN SATURATION, [id number] 04:08:00* Test Item Value Reference Range Comments O2 SATURATION (MEASURED) (BEAKER) (test vxya=3554) 83.8 % [id number] 00:25:00* Test Item Value Reference Range Comments POTASSIUM (BEAKER) (test rkkn=992) 4.1 meq/L 3.5-5.1 [id number] 00:25:00* Test Item Value Reference Range Comments MAGNESIUM (BEAKER) (test rdis=365) 2.4 mg/dL 1.6-2.6 [id number] 00:25:00* Test Item Value Reference Range Comments SODIUM (BEAKER) (test kwhk=872) 143 meq/L 136-145 BASIC METABOLIC [id number] 00:25:00* Test Item Value Reference Range Comments SODIUM (BEAKER) (test jbpt=582) 143 meq/L 136-145 POTASSIUM (BEAKER) (test gpvf=455) 4.1 meq/L 3.5-5.1 CHLORIDE (BEAKER) (test kozp=034) 111 meq/L 98-107 CO2 (BEAKER) (test fouf=933) 24 meq/L 22-29 BLOOD UREA NITROGEN (BEAKER) (test gafx=354) 23 mg/dL 7-21 CREATININE (BEAKER) (test coaf=770) 1.34 mg/dL 0.57-1.25 GLUCOSE RANDOM (BEAKER) (test mbhv=681) 145 mg/dL 70-105 CALCIUM (BEAKER) (test zjri=984) 9.2 mg/dL 8.4-10.2 EGFR (BEAKER) (test qrxw=3954) 42 mL/min/1.73 sq m ESTIMATED GFR IS NOT ACCURATE CREATININE CLEARANCE IN PREDICTING GLOMERULAR FILTRATION RATE. ESTIMATED GFR IS NOT APPLICABLE FOR DIALYSIS PATIENTS. Specimen slightly ictericLACTIC ACID, ARTERIAL, WHOLE [id number] 00:17:00* Test Item Value Reference Range Comments LACTATE BLOOD ARTERIAL (2) (BEAKER) (test swxp=4022) 2.0 mmol/L 0.5-2.2 Effective 03/10/2016: Units/Reference Range ChangeNew: 0.5-2.2 mmol/L Previous: 5 -20 mg/dLSpecimen slightly [id number] 00:07:00* Test Item Value Reference Range Comments FIBRINOGEN LEVEL (BEAKER) (test anbp=364) 381 mg/dl 225-434 [id number] 00:07:00* Test Item Value Reference Range Comments PARTIAL THROMBOPLASTIN TIME (BEAKER) (test gamw=982) 36.6 seconds 22.5-36.0 PROTHROMBIN [id number] 00:06:00* Test Item Value Reference Range Comments PROTIME (BEAKER) (test qjdc=891) 19.0 seconds 11.7-14.7 INR (BEAKER) (test hnww=721) 1.6 <=5.9 RECOMMENDED COUMADIN/WARFARIN INR THERAPY RANGESSTANDARD DOSE: 2.0 - 3.0 Inclu connie: PROPHYLAXIS for venous thrombosis, systemic embolization; TREATMENT for lupis ous thrombosis and/or pulmonary embolus.HIGH RISK: Target INR is 2.5-3.5 for pat ients with mechanical heart valves.PLATELET [id number] 23:53:00* Test Item Value Reference Range Comments PLATELET COUNT (BEAKER) (test ucna=282) 110 K/CU MM 150-450 HEMOGLOBIN AND [id number] 23:53:00* Test Item Value Reference Range Comments HEMOGLOBIN (BEAKER) (test jrjm=909) 8.6 GM/DL 11.2-15.7 HEMATOCRIT (BEAKER) (test xbjf=923) 26.4 % 34.1-44.9 BLOOD GAS, [id number] 23:43:00* Test Item Value Reference Range Comments PH ARTERIAL (BEAKER) (test tkss=516) 7.51 7.35-7.45 PCO2 ARTERIAL (BEAKER) (test zmzh=964) 31 mmHg 35-45 PO2 ARTERIAL (BEAKER) (test auff=883) 102 mmHg 80-90 O2 SATURATION ARTERIAL (BEAKER) (test phiy=903) 98.8 % 96.0-97.0 HCO3 ARTERIAL (BEAKER) (test mugg=304) 26 mmol/L 21-29 BASE EXCESS ARTERIAL (BEAKER) (test acuk=207) 1.4 mmol/L -2.0-3.0 PATIENT TEMPERATURE (BEAKER) (test azku=3766) 30.4 C FIO2 (BEAKER) (test bumx=1778) 100.0 % OXYGEN SATURATION, [id number] 23:42:00* Test Item Value Reference Range Comments O2 SATURATION (MEASURED) (BEAKER) (test tlcq=8628) 86.0 % CALCIUM, [id number] 23:42:00* Test Item Value Reference Range Comments CALCIUM IONIZED (BEAKER) (test gbjw=484) 1.25 mmol/L 1.12-1.27 PH, BLOOD (BEAKER) (test itwq=1675) 7.41 THROMBOELASTOGRAPH (TEG)2018-02-02 20:53:00* Test Item Value Reference Range Comments TEG ACTIVATED CLOTTING TIME (BEAKER) (test zlbt=4260) 9.5 minutes 4.0-7.0 TEG FIBRINOGEN ACTIVITY (BEAKER) (test bxyd=9163) 58.1 degrees 61.0-73.[address]T. AGGREGATION (BEAKER) (test jjyd=1181) 58.9 MM 55.0-65.0 TEG FIBRINOLYSIS (BEAKER) (test xedg=0688) 0.0 % 0.0-5.0 TGH ACTIVATED CLOTTING TIME (BEAKER) (test ulau=6522) 9.2 minutes 4.0-7.0 TGH FIBRINOGEN ACTIVITY (BEAKER) (test jjpn=0297) 70.3 degrees 61.0-73.0 TGH PLT. AGGREGATION (BEAKER) (test gevr=8492) 40.3 MM 55.0-65.0 TGH FIBRINOLYSIS (BEAKER) (test dwyv=6464) 0.7 % 0.0-5.0 BLOOD GAS, [id number] 20:43:00* Test Item Value Reference Range Comments PH ARTERIAL (BEAKER) (test omix=595) 7.52 7.35-7.45 PCO2 ARTERIAL (BEAKER) (test salq=448) 31 mmHg 35-45 PO2 ARTERIAL (BEAKER) (test iqgh=968) 199 mmHg 80-90 O2 SATURATION ARTERIAL (BEAKER) (test siig=550) 99.5 % 96.0-97.0 HCO3 ARTERIAL (BEAKER) (test vscl=925) 25 mmol/L 21-29 BASE EXCESS ARTERIAL (BEAKER) (test cnki=191) 1.6 mmol/L -2.0-3.0 PATIENT TEMPERATURE (BEAKER) (test gyzv=7507) 36.3 C FIO2 (BEAKER) (test plog=0348) 100.0 % [id number] 20:37:00* Test Item Value Reference Range Comments FIBRINOGEN LEVEL (BEAKER) (test vldi=037) 314 mg/dl 225-434 [id number] 20:37:00* Test Item Value Reference Range Comments PARTIAL THROMBOPLASTIN TIME (BEAKER) (test vejc=297) 45.6 seconds 22.5-36.0 PROTHROMBIN TIME/[id number] 20:36:00* Test Item Value Reference Range Comments PROTIME (BEAKER) (test hdjy=303) 20.3 seconds 11.7-14.7 INR (BEAKER) (test wpwq=750) 1.7 <=5.9 RECOMMENDED COUMADIN/WARFARIN INR THERAPY RANGESSTANDARD DOSE: 2.0 - 3.0 Inclu connie: PROPHYLAXIS for venous thrombosis, systemic embolization; TREATMENT for lupis ous thrombosis and/or pulmonary embolus.HIGH RISK: Target INR is 2.5-3.5 for pat ients with mechanical heart valves.[id number] 20:22:00* Test Item Value Reference Range Comments MAGNESIUM (BEAKER) (test lzwt=409) 2.4 mg/dL 1.6-2.6 BASIC METABOLIC [id number] 20:22:00* Test Item Value Reference Range Comments SODIUM (BEAKER) (test fgbw=720) 144 meq/L 136-145 POTASSIUM (BEAKER) (test diko=193) 4.2 meq/L 3.5-5.1 CHLORIDE (BEAKER) (test rxnl=154) 113 meq/L 98-107 CO2 (BEAKER) (test ptee=357) 23 meq/L 22-29 BLOOD UREA NITROGEN (BEAKER) (test ermr=631) 20 mg/dL 7-21 CREATININE (BEAKER) (test lgfp=649) 1.29 mg/dL 0.57-1.25 GLUCOSE RANDOM (BEAKER) (test vofm=026) 134 mg/dL 70-105 CALCIUM (BEAKER) (test vgan=720) 9.4 mg/dL 8.4-10.2 EGFR (BEAKER) (test wgbm=0577) 43 mL/min/1.73 sq m ESTIMATED GFR IS NOT ACCURATE CREATININE CLEARANCE IN PREDICTING GLOMERULAR FILTRATION RATE. ESTIMATED GFR IS NOT APPLICABLE FOR DIALYSIS PATIENTS. Specimen slightly ictericLACTATE DEHYDROGENASE (LDH)2018-02-02 20:22:00* Test Item Value Reference Range Comments LACTATE DEHYDROGENASE (BEAKER) (test bhww=903) 338 U/L 125-220 RAD, CHEST, 1 VIEW, NON [id number] 20:20:00Reason for exam:->post-opShould this be performed at the bedside?->YesFINAL REPORT CLINICAL INDICATION: Postop Comparison: Same date at 1253 hours The cardiomediastinal contours are stable. Central pulmonary vascular congestion and bilateral parenchymal and left pleural opacities are similar to previous within variation of acquisition technique. There is no pneumothorax. Support lines are stable. Signed: Abel Schwartzeport Verified Date/Time: 02/02/2018 20:20:39 Reading Location: [address] Reading Room IC ACID, ARTERIAL, WHOLE [id number] 20:17:00* Test Item Value Reference Range Comments LACTATE BLOOD ARTERIAL (2) (BEAKER) (test qnza=4376) 2.3 mmol/L 0.5-2.2 Effective 03/10/2016: Units/Reference Range ChangeNew: 0.5-2.2 mmol/L Previous: 5 -20 mg/dLSpecimen slightly ictericCBC (HEMOGRAM ONLY)2018-02-02 20:01:00* Test Item Value Reference Range Comments WHITE BLOOD CELL COUNT (BEAKER) (test tvrh=865) 6.5 K/ L 3.5-10.5 RED BLOOD CELL COUNT (BEAKER) (test nqmj=763) 2.80 M/ L 3.93-5.22 HEMOGLOBIN (BEAKER) (test ugly=459) 8.3 GM/DL 11.2-15.7 HEMATOCRIT (BEAKER) (test gpqf=711) 25.0 % 34.1-44.9 MEAN CORPUSCULAR VOLUME (BEAKER) (test xnow=377) 89.3 fL 79.4-94.8 MEAN CORPUSCULAR HEMOGLOBIN (BEAKER) (test vpab=115) 29.6 pg 25.6-32.2 MEAN CORPUSCULAR HEMOGLOBIN CONC (BEAKER) (test zkvk=781) 33.2 GM/DL 32.2-35.5 RED CELL DISTRIBUTION WIDTH (BEAKER) (test dxga=842) 15.1 % 11.7-14.4 PLATELET COUNT (BEAKER) (test ztjt=210) 100 K/CU MM 150-450 MEAN PLATELET VOLUME (BEAKER) (test sove=777) 9.8 fL 9.4-12.3 NUCLEATED RED BLOOD CELLS (BEAKER) (test iiiv=788) 1 /100 WBC 0-0 CALCIUM, [id number] 19:50:00* Test Item Value Reference Range Comments CALCIUM IONIZED (BEAKER) (test uklo=736) 1.27 mmol/L 1.12-1.27 PH, BLOOD (BEAKER) (test asiu=9359) 7.50 SODIUM NA-STAT [id number] 19:50:00* Test Item Value Reference Range Comments SODIUM (BEAKER) (test fkai=019) 140 meq/L 135-148 POTASSIUM-STAT [id number] 19:50:00* Test Item Value Reference Range Comments POTASSIUM (BEAKER) (test bvkb=672) 4.0 meq/L 3.6-5.5 BLOOD GAS, [id number] 19:50:00* Test Item Value Reference Range Comments PH ARTERIAL (BEAKER) (test vtvg=054) 7.50 7.35-7.45 PCO2 ARTERIAL (BEAKER) (test hkpe=263) 33 mmHg 35-45 PO2 ARTERIAL (BEAKER) (test nhbh=753) 47 mmHg 80-90 O2 SATURATION ARTERIAL (BEAKER) (test ludw=295) 89.3 % 96.0-97.0 HCO3 ARTERIAL (BEAKER) (test ogcg=961) 25 mmol/L 21-29 BASE EXCESS ARTERIAL (BEAKER) (test xabq=187) 1.4 mmol/L -2.0-3.0 PATIENT TEMPERATURE (BEAKER) (test kwna=7005) 35.6 C FIO2 (BEAKER) (test scav=6407) 100.0 % GLUCOSE-STAT [id number] 19:50:00* Test Item Value Reference Range Comments GLUCOSE RANDOM (BEAKER) (test gvhb=221) 126 mg/dL 70-110 HGB/HCT (H&H) - STAT [id number] 19:50:00* Test Item Value Reference Range Comments HEMOGLOBIN (BEAKER) (test jwhm=661) 9.1 g/dL 12.0-15.0 HEMATOCRIT (BEAKER) (test wqal=841) 27.0 % 36.0-45.0 OXYGEN SATURATION, [id number] 19:49:00* Test Item Value Reference Range Comments O2 SATURATION (MEASURED) (BEAKER) (test vmok=1642) 79.1 % CALCIUM, [id number] 18:59:00* Test Item Value Reference Range Comments CALCIUM IONIZED (BEAKER) (test ldan=587) 1.21 mmol/L 1.12-1.27 PH, BLOOD (BEAKER) (test kkhv=0014) 7.50 BLOOD GAS, [id number] 18:59:00* Test Item Value Reference Range Comments PH ARTERIAL (BEAKER) (test nkkh=336) 7.50 7.35-7.45 PCO2 ARTERIAL (BEAKER) (test nbac=204) 33 mmHg 35-45 PO2 ARTERIAL (BEAKER) (test xabm=622) 46 mmHg 80-90 O2 SATURATION ARTERIAL (BEAKER) (test llow=120) 87.0 % 96.0-97.0 HCO3 ARTERIAL (BEAKER) (test ataj=244) 25 mmol/L 21-29 BASE EXCESS ARTERIAL (BEAKER) (test slzm=813) 1.9 mmol/L -2.0-3.0 PATIENT TEMPERATURE (BEAKER) (test gwik=9223) 36.5 C FIO2 (BEAKER) (test nwbn=0082) 100.0 % GLUCOSE-STAT [id number] 18:59:00* Test Item Value Reference Range Comments GLUCOSE RANDOM (BEAKER) (test jhmx=522) 122 mg/dL 70-110 HGB/HCT (H&H) - STAT [id number] 18:59:00* Test Item Value Reference Range Comments HEMOGLOBIN (BEAKER) (test ypbn=308) 8.2 g/dL 12.0-15.0 HEMATOCRIT (BEAKER) (test npgw=008) 24.0 % 36.0-45.0 SODIUM NA-STAT [id number] 18:58:00* Test Item Value Reference Range Comments SODIUM (BEAKER) (test zwom=858) 140 meq/L 135-148 POTASSIUM-STAT [id number] 18:58:00* Test Item Value Reference Range Comments POTASSIUM (BEAKER) (test esxl=323) 4.0 meq/L 3.6-5.5 CALCIUM, [id number] 17:05:00* Test Item Value Reference Range Comments CALCIUM IONIZED (BEAKER) (test hhpq=481) 1.20 mmol/L 1.12-1.27 PH, BLOOD (BEAKER) (test xtut=2817) 7.47 BLOOD GAS, [id number] 17:05:00* Test Item Value Reference Range Comments PH ARTERIAL (BEAKER) (test sibx=633) 7.47 7.35-7.45 PCO2 ARTERIAL (BEAKER) (test zcmd=670) 35 mmHg 35-45 PO2 ARTERIAL (BEAKER) (test kmqf=766) 62 mmHg 80-90 O2 SATURATION ARTERIAL (BEAKER) (test tjco=106) 93.7 % 96.0-97.0 HCO3 ARTERIAL (BEAKER) (test rahi=197) 25 mmol/L 21-29 BASE EXCESS ARTERIAL (BEAKER) (test thro=097) 1.0 mmol/L -2.0-3.0 PATIENT TEMPERATURE (BEAKER) (test ysss=5609) 36.4 C FIO2 (BEAKER) (test futt=6696) 100.0 % GLUCOSE-STAT [id number] 17:05:00* Test Item Value Reference Range Comments GLUCOSE RANDOM (BEAKER) (test ahye=609) 117 mg/dL 70-110 HGB/HCT (H&H) - STAT [id number] 17:05:00* Test Item Value Reference Range Comments HEMOGLOBIN (BEAKER) (test qoje=635) 9.2 g/dL 12.0-15.0 HEMATOCRIT (BEAKER) (test xeeh=835) 27.0 % 36.0-45.0 SODIUM NA-STAT [id number] 17:04:00* Test Item Value Reference Range Comments SODIUM (BEAKER) (test tqre=135) 140 meq/L 135-148 POTASSIUM-STAT [id number] 17:04:00* Test Item Value Reference Range Comments POTASSIUM (BEAKER) (test qkpw=041) 4.0 meq/L 3.6-5.5 BLOOD GAS, [id number] 14:11:00* Test Item Value Reference Range Comments PH ARTERIAL (BEAKER) (test vzto=633) 7.46 7.35-7.45 PCO2 ARTERIAL (BEAKER) (test xxfp=245) 38 mmHg 35-45 PO2 ARTERIAL (BEAKER) (test atlm=270) 295 mmHg 80-90 O2 SATURATION ARTERIAL (BEAKER) (test arwg=648) 99.7 % 96.0-97.0 HCO3 ARTERIAL (BEAKER) (test pcny=396) 26 mmol/L 21-29 BASE EXCESS ARTERIAL (BEAKER) (test rtnq=065) 2.2 mmol/L -2.0-3.0 PATIENT TEMPERATURE (BEAKER) (test vrqn=1908) 36.5 C FIO2 (BEAKER) (test lyje=0104) 100.0 % [id number] 14:07:00* Test Item Value Reference Range Comments POTASSIUM (BEAKER) (test dzie=240) 4.7 meq/L 3.5-5.1 [id number] 14:07:00* Test Item Value Reference Range Comments MAGNESIUM (BEAKER) (test bgyq=174) 2.7 mg/dL 1.6-2.6 [id number] 14:07:00* Test Item Value Reference Range Comments SODIUM (BEAKER) (test rjgs=869) 146 meq/L 136-145 BASIC METABOLIC [id number] 14:07:00* Test Item Value Reference Range Comments SODIUM (BEAKER) (test ueub=451) 146 meq/L 136-145 POTASSIUM (BEAKER) (test tffe=411) 4.7 meq/L 3.5-5.1 CHLORIDE (BEAKER) (test poql=555) 112 meq/L 98-107 CO2 (BEAKER) (test ijnt=843) 25 meq/L 22-29 BLOOD UREA NITROGEN (BEAKER) (test kcml=588) 19 mg/dL 7-21 CREATININE (BEAKER) (test eien=173) 1.39 mg/dL 0.57-1.25 GLUCOSE RANDOM (BEAKER) (test fhhx=080) 124 mg/dL 70-105 CALCIUM (BEAKER) (test yyma=072) 9.0 mg/dL 8.4-10.2 EGFR (BEAKER) (test dtsa=6118) 40 mL/min/1.73 sq m ESTIMATED GFR IS NOT ACCURATE CREATININE CLEARANCE IN PREDICTING GLOMERULAR FILTRATION RATE. ESTIMATED GFR IS NOT APPLICABLE FOR DIALYSIS PATIENTS. Specimen slightly ictericLACTIC ACID, ARTERIAL, WHOLE [id number] 14:03:00* Test Item Value Reference Range Comments LACTATE BLOOD ARTERIAL (2) (BEAKER) (test liae=1272) 2.4 mmol/L 0.5-2.2 Effective 03/10/2016: Units/Reference Range ChangeNew: 0.5-2.2 mmol/L Previous: 5 -20 mg/[id number] 13:53:00* Test Item Value Reference Range Comments FIBRINOGEN LEVEL (BEAKER) (test avkg=570) 308 mg/dl 225-434 [id number] 13:53:00* Test Item Value Reference Range Comments PARTIAL THROMBOPLASTIN TIME (BEAKER) (test bxax=885) 44.8 seconds 22.5-36.0 PROTHROMBIN TIME/[id number] 13:52:00* Test Item Value Reference Range Comments PROTIME (BEAKER) (test fjbj=014) 22.8 seconds 11.7-14.7 INR (BEAKER) (test xffs=664) 2.0 <=5.9 RECOMMENDED COUMADIN/WARFARIN INR THERAPY RANGESSTANDARD DOSE: 2.0 - 3.0 Inclu connie: PROPHYLAXIS for venous thrombosis, systemic embolization; TREATMENT for lupis ous thrombosis and/or pulmonary embolus.HIGH RISK: Target INR is 2.5-3.5 for pat ients with mechanical heart valves.OXYGEN SATURATION, [id number] 13:51:00* Test Item Value Reference Range Comments O2 SATURATION (MEASURED) (BEAKER) (test fcmg=9847) 74.0 % BLOOD GAS, [id number] 13:45:00* Test Item Value Reference Range Comments PH ARTERIAL (BEAKER) (test eaqq=551) 7.54 7.35-7.45 PCO2 ARTERIAL (BEAKER) (test ptli=316) 31 mmHg 35-45 PO2 ARTERIAL (BEAKER) (test wtal=813) 49 mmHg 80-90 O2 SATURATION ARTERIAL (BEAKER) (test fmef=419) 90.3 % 96.0-97.0 HCO3 ARTERIAL (BEAKER) (test thwq=574) 26 mmol/L 21-29 BASE EXCESS ARTERIAL (BEAKER) (test rxrq=541) 3.6 mmol/L -2.0-3.0 PATIENT TEMPERATURE (BEAKER) (test cwtk=2291) 36.4 C FIO2 (BEAKER) (test tdww=6826) 100.0 % PLATELET [id number] 13:43:00* Test Item Value Reference Range Comments PLATELET COUNT (BEAKER) (test wojh=982) 58 K/CU MM 150-450 HEMOGLOBIN AND [id number] 13:43:00* Test Item Value Reference Range Comments HEMOGLOBIN (BEAKER) (test ixkg=729) 8.9 GM/DL 11.2-15.7 HEMATOCRIT (BEAKER) (test mcev=139) 26.6 % 34.1-44.9 RAD, CHEST, 1 VIEW, NON [id number] 13:22:00Reason for exam:->hypoxiaShould this be performed at the bedside?->YesFINAL REPORT EXAM: Frontal chest radiograph HISTORY PROVIDED: Hypoxia COMPARISON: 02/02/2018 at 0343 IMPRESSION:Support lines and tubes are in unchanged position. No significant change is seen in the relatively diffuse left greater than right airspace opacities with near complete opacification of the left upper hemithorax and apex as before. A large left pleural effusion with possible loculated component is also suspected on the left which may partially account for the opacification. A CT can be performed if clinically indicated. No discernible pneumothorax. The cardiac silhouette is stable. Signed: Claudia Simpson MDReport Verified Date/Time: 02/02/2018 13:22:24 Reading Location: [facility] Reading Room RIN ASSAY - [id number] 11:39:00* Test Item Value Reference Range Comments UNFRACTIONATED HEPARIN-ANTI 10A (BEAKER) (test jnbo=6041) < u/ml 0.30-0.70 Recommendations for Monitoring Unfractionated Heparin Therapeutic Range: 0.3-0. 7 u/mL with continuous IV infusionSODIUM NA-STAT [id number] 11:13:00* Test Item Value Reference Range Comments SODIUM (BEAKER) (test mgfp=571) 139 meq/L 135-148 HGB/HCT (H&H) - STAT [id number] 11:13:00* Test Item Value Reference Range Comments HEMOGLOBIN (BEAKER) (test cief=970) 9.1 g/dL 12.0-15.0 HEMATOCRIT (BEAKER) (test xceg=298) 27.0 % 36.0-45.0 BLOOD GAS, [id number] 11:12:00* Test Item Value Reference Range Comments PH ARTERIAL (BEAKER) (test lezd=792) 7.59 7.35-7.45 PCO2 ARTERIAL (BEAKER) (test uvof=540) 25 mmHg 35-45 PO2 ARTERIAL (BEAKER) (test nssn=300) 53 mmHg 80-90 O2 SATURATION ARTERIAL (BEAKER) (test hvkq=537) 93.3 % 96.0-97.0 HCO3 ARTERIAL (BEAKER) (test cyuz=098) 24 mmol/L 21-29 BASE EXCESS ARTERIAL (BEAKER) (test rqby=178) 2.4 mmol/L -2.0-3.0 PATIENT TEMPERATURE (BEAKER) (test xnfl=3727) 36.5 C FIO2 (BEAKER) (test zctp=4438) 60.0 % CALCIUM, [id number] 11:11:00* Test Item Value Reference Range Comments CALCIUM IONIZED (BEAKER) (test dmhq=766) 1.19 mmol/L 1.12-1.27 PH, BLOOD (BEAKER) (test bozv=6888) 7.58 GLUCOSE-STAT [id number] 11:10:00* Test Item Value Reference Range Comments GLUCOSE RANDOM (BEAKER) (test dvho=500) 103 mg/dL 70-110 POTASSIUM-STAT [id number] 11:10:00* Test Item Value Reference Range Comments POTASSIUM (BEAKER) (test hvov=043) 4.3 meq/L 3.6-5.5 ANTITHROMBIN [id number] 10:01:00* Test Item Value Reference Range Comments ANTITHROMBIN III ACTIVITY (BEAKER) (test bymg=598) 32.0 % 80.0-120.0 1:1 MIXING STUDY, [id number] 09:47:00* Test Item Value Reference Range Comments PROTIME (BEAKER) (test rppx=732) 23.7 seconds 11.7-14.7 PARTIAL THROMBOPLASTIN TIME (BEAKER) (test hedr=640) 45.6 seconds 22.5-36.0 PT 1/1 MIX (BEAKER) (test mecv=5979) 15.3 SECS 11.7-14.7 PTT 1/1 MIX (BEAKER) (test cctv=2953) 38.1 SECS 22.5-36.0 BASIC METABOLIC [id number] 08:39:00* Test Item Value Reference Range Comments SODIUM (BEAKER) (test rdsr=012) 147 meq/L 136-145 POTASSIUM (BEAKER) (test jphy=490) 4.7 meq/L 3.5-5.1 Specimen slightly hemolyzed CHLORIDE (BEAKER) (test qvde=387) 113 meq/L 98-107 CO2 (BEAKER) (test mtrl=280) 24 meq/L 22-29 BLOOD UREA NITROGEN (BEAKER) (test ongi=658) 18 mg/dL 7-21 CREATININE (BEAKER) (test xqud=512) 1.29 mg/dL 0.57-1.25 Specimen slightly hemolyzed GLUCOSE RANDOM (BEAKER) (test okpn=822) 88 mg/dL 70-105 CALCIUM (BEAKER) (test lyqv=448) 9.0 mg/dL 8.4-10.2 EGFR (BEAKER) (test ygbz=5819) 43 mL/min/1.73 sq m ESTIMATED GFR IS NOT ACCURATE CREATININE CLEARANCE IN PREDICTING GLOMERULAR FILTRATION RATE. ESTIMATED GFR IS NOT APPLICABLE FOR DIALYSIS PATIENTS. LACTIC ACID, ARTERIAL, WHOLE [id number] 08:35:00* Test Item Value Reference Range Comments LACTATE BLOOD ARTERIAL (2) (SARAHAKER) (test rtig=7336) 2.2 mmol/L 0.5-2.2 Effective 03/10/2016: Units/Reference Range ChangeNew: 0.5-2.2 mmol/L Previous: 5 -20 mg/[id number] 08:34:00* Test Item Value Reference Range Comments PARTIAL THROMBOPLASTIN TIME (BEAKER) (test zkge=368) 43.9 seconds 22.5-36.0 PROTHROMBIN TIME/[id number] 08:33:00* Test Item Value Reference Range Comments PROTIME (BEAKER) (test qahb=406) 23.5 seconds 11.7-14.7 INR (BEAKER) (test scmf=936) 2.1 <=5.9 RECOMMENDED COUMADIN/WARFARIN INR THERAPY RANGESSTANDARD DOSE: 2.0 - 3.0 Inclu connie: PROPHYLAXIS for venous thrombosis, systemic embolization; TREATMENT for lupis ous thrombosis and/or pulmonary embolus.HIGH RISK: Target INR is 2.5-3.5 for pat ients with mechanical heart valves.[id number] 08:33:00* Test Item Value Reference Range Comments FIBRINOGEN LEVEL (SARAHAKER) (test lqpq=287) 297 mg/dl 225-434 GLUCOSE-STAT [id number] 08:22:00* Test Item Value Reference Range Comments GLUCOSE RANDOM (SARAHAKER) (test oipa=950) 87 mg/dL 70-110 PLATELET [id number] 08:21:00* Test Item Value Reference Range Comments PLATELET COUNT (BEAKER) (test wxrc=525) 71 K/CU MM 150-450 HEMOGLOBIN AND [id number] 08:21:00* Test Item Value Reference Range Comments HEMOGLOBIN (BEAKER) (test uryf=844) 8.0 GM/DL 11.2-15.7 HEMATOCRIT (BEAKER) (test vjoo=091) 24.0 % 34.1-44.9 BLOOD GAS, [id number] 08:20:00* Test Item Value Reference Range Comments PH ARTERIAL (BEAKER) (test blxg=895) 7.46 7.35-7.45 PCO2 ARTERIAL (BEAKER) (test wiwd=530) 39 mmHg 35-45 PO2 ARTERIAL (BEAKER) (test eyws=533) 69 mmHg 80-90 O2 SATURATION ARTERIAL (BEAKER) (test mbai=346) 95.0 % 96.0-97.0 HCO3 ARTERIAL (BEAKER) (test udeh=657) 27 mmol/L 21-29 BASE EXCESS ARTERIAL (BEAKER) (test pgdy=654) 2.7 mmol/L -2.0-3.0 PATIENT TEMPERATURE (BEAKER) (test lbep=3939) 36.5 C FIO2 (BEAKER) (test kcun=5584) 60.0 % OXYGEN SATURATION, [id number] 08:17:00* Test Item Value Reference Range Comments O2 SATURATION (MEASURED) (BEAKER) (test rzzu=9796) 75.9 % RAD, CHEST, 1 VIEW, NON [id number] 07:05:00Reason for exam:-> ECMO/intubatedShould this be performed at the bedside?->YesIs the patient ?->UnknownFINAL REPORT Chest one view INDICATION: ECMO/intubated COMPARISON: 02/01/2018 IMPRESSION: Support devices are stable accounting for positional differences. Median sternotomy changes are noted. The enlarged cardiomediastinal silhouette is partially obscured but stable. Lung volumes have decreased with increased diffuse lung opacities suggesting worsening edema. Superimposed minus cannot be excluded. Dependent right pleural effusion is suspected. No pneumothorax is seen. A large left pleural effusion has redistributed or mildly increased. Hemothorax cannot be excluded. Advise correlation with chest tube output and consider CT if indicated. Signed: Virgilio Kerns MDReport Verified Date/Time: 02/02/2018 07:05:24 Reading Location: [facility] Radiology Reading Room D GAS, [id number] 05:14:00* Test Item Value Reference Range Comments PH ARTERIAL (BEAKER) (test taaq=162) 7.51 7.35-7.45 PCO2 ARTERIAL (BEAKER) (test ikws=998) 35 mmHg 35-45 PO2 ARTERIAL (BEAKER) (test fcpb=828) 305 mmHg 80-90 O2 SATURATION ARTERIAL (BEAKER) (test htcp=521) 99.8 % 96.0-97.0 HCO3 ARTERIAL (BEAKER) (test qkhp=422) 27 mmol/L 21-29 BASE EXCESS ARTERIAL (BEAKER) (test xnnr=224) 3.9 mmol/L -2.0-3.0 PATIENT TEMPERATURE (BEAKER) (test ykvl=8461) 36.5 C FIO2 (BEAKER) (test ivxy=7164) 60.0 % GLUCOSE-STAT [id number] 05:14:00* Test Item Value Reference Range Comments GLUCOSE RANDOM (BEAKER) (test jmvo=749) 66 mg/dL 70-110 HGB/HCT (H&H) - STAT [id number] 05:14:00* Test Item Value Reference Range Comments HEMOGLOBIN (BEAKER) (test wjxw=678) 8.7 g/dL 12.0-15.0 HEMATOCRIT (BEAKER) (test ssby=350) 26.0 % 36.0-45.0 CALCIUM, [id number] 05:14:00* Test Item Value Reference Range Comments CALCIUM IONIZED (BEAKER) (test xlin=352) 1.28 mmol/L 1.12-1.27 PH, BLOOD (BEAKER) (test yxml=9675) 7.50 SODIUM NA-STAT [id number] 05:13:00* Test Item Value Reference Range Comments SODIUM (BEAKER) (test lhpt=735) 143 meq/L 135-148 POTASSIUM-STAT [id number] 05:13:00* Test Item Value Reference Range Comments POTASSIUM (BEAKER) (test dmwo=350) 4.2 meq/L 3.6-5.5 THROMBOELASTOGRAPH (TEG)2018-02-02 05:01:00* Test Item Value Reference Range Comments TEG ACTIVATED CLOTTING TIME (BEAKER) (test athp=0769) 4.7 minutes 4.0-7.0 TEG FIBRINOGEN ACTIVITY (BEAKER) (test grdf=6306) 68.6 degrees 61.0-73.0 TEG PLT. AGGREGATION (BEAKER) (test glkb=4045) 57.4 MM 55.0-65.0 TEG FIBRINOLYSIS (BEAKER) (test fhqf=5098) 0.9 % 0.0-5.0 TGH ACTIVATED CLOTTING TIME (BEAKER) (test kixc=8840) 4.6 minutes 4.0-7.0 TGH FIBRINOGEN ACTIVITY (BEAKER) (test vuem=4215) 66.4 degrees 61.0-73.0 TGH PLT. AGGREGATION (BEAKER) (test wgkq=7948) 47.6 MM 55.0-65.0 TGH FIBRINOLYSIS (BEAKER) (test dclp=4443) 1.4 % 0.0-5.0 BLOOD GAS, [id number] 04:39:00* Test Item Value Reference Range Comments PH ARTERIAL (BEAKER) (test sxab=143) 7.48 7.35-7.45 PCO2 ARTERIAL (BEAKER) (test nupn=003) 38 mmHg 35-45 PO2 ARTERIAL (BEAKER) (test pcrh=757) 414 mmHg 80-90 O2 SATURATION ARTERIAL (BEAKER) (test gsnk=950) 99.9 % 96.0-97.0 HCO3 ARTERIAL (BEAKER) (test xznl=634) 28 mmol/L 21-29 BASE EXCESS ARTERIAL (BEAKER) (test nwuh=996) 4.0 mmol/L -2.0-3.0 PATIENT TEMPERATURE (BEAKER) (test obrz=7796) 36.5 C FIO2 (BEAKER) (test ilxc=4479) 100.0 % FIBRIN SOLUBLE [id number] 04:30:00* Test Item Value Reference Range Comments FIBRIN SOLUBLE MONOMER (BEAKER) (test thwh=1348) POS 1+ [id number] 03:57:00* Test Item Value Reference Range Comments MAGNESIUM (BEAKER) (test zejf=881) 1.9 mg/dL 1.6-2.6 BASIC METABOLIC [id number] 03:57:00* Test Item Value Reference Range Comments SODIUM (BEAKER) (test psrm=507) 148 meq/L 136-145 POTASSIUM (BEAKER) (test qxak=660) 4.5 meq/L 3.5-5.1 CHLORIDE (BEAKER) (test hrrb=638) 115 meq/L 98-107 CO2 (BEAKER) (test udye=674) 25 meq/L 22-29 BLOOD UREA NITROGEN (BEAKER) (test ifna=157) 17 mg/dL 7-21 CREATININE (BEAKER) (test gebx=305) 1.28 mg/dL 0.57-1.25 GLUCOSE RANDOM (BEAKER) (test kfvy=737) 80 mg/dL 70-105 CALCIUM (BEAKER) (test rmfu=515) 9.3 mg/dL 8.4-10.2 EGFR (BEAKER) (test vwyq=7679) 44 mL/min/1.73 sq m ESTIMATED GFR IS NOT ACCURATE CREATININE CLEARANCE IN PREDICTING GLOMERULAR FILTRATION RATE. ESTIMATED GFR IS NOT APPLICABLE FOR DIALYSIS PATIENTS. HEPATIC FUNCTION [id number] 03:57:00* Test Item Value Reference Range Comments TOTAL PROTEIN (BEAKER) (test wjqd=833) 3.2 gm/dL 6.0-8.3 ALBUMIN (BEAKER) (test dmnq=0085) 2.3 g/dL 3.5-5.0 BILIRUBIN TOTAL (BEAKER) (test czns=699) 1.7 mg/dL 0.2-1.2 BILIRUBIN DIRECT (BEAKER) (test jjbc=264) 0.3 mg/dL 0.1-0.5 ALKALINE PHOSPHATASE (BEAKER) (test lfwm=206) 27 U/L 40-150 AST (SGOT) (BEAKER) (test uetn=312) 76 U/L 5-34 ALT (SGPT) (BEAKER) (test rpbh=997) 17 U/L 6-55 LACTATE DEHYDROGENASE (LDH)2018-02-02 03:57:00* Test Item Value Reference Range Comments LACTATE DEHYDROGENASE (BEAKER) (test fwxz=362) 339 U/L 125-220 LACTIC ACID, ARTERIAL, WHOLE [id number] 03:46:00* Test Item Value Reference Range Comments LACTATE BLOOD ARTERIAL (2) (BEAKER) (test swcl=3590) 2.6 mmol/L 0.5-2.2 Effective 03/10/2016: Units/Reference Range ChangeNew: 0.5-2.2 mmol/L Previous: 5 -20 mg/cWQ-[id number] 03:46:00* Test Item Value Reference Range Comments D-DIMER QUANTITATIVE (BEAKER) (test aaax=281) 2.17 MG/L FEU <0.50 Intended Use: The D-Dimer Assay can be used to aid in the diagnosis of Deep Vein Thrombosis (DVT) and Pulmonary Embolism Disease (PED).In patients with low pre- test probability, various studies concerning STA Liatest D-dimer test have repor emily that with a cutoff value of 0.50 MG/L FEU, the Negative Predictive Value (ELEVATED WORK PLATFORM OPERATOR V) regarding the exclusion of thrombosis is within 95-100% range.FIBRINOGEN 2018-02-02 03:45:00* Test Item Value Reference Range Comments FIBRINOGEN LEVEL (BEAKER) (test rloi=958) 250 mg/dl 225-434 [id number] 03:45:00* Test Item Value Reference Range Comments PARTIAL THROMBOPLASTIN TIME (BEAKER) (test hxem=239) 50.1 seconds 22.5-36.0 PROTHROMBIN TIME/[id number] 03:43:00* Test Item Value Reference Range Comments PROTIME (BEAKER) (test qlwc=230) 24.3 seconds 11.7-14.7 INR (BEAKER) (test prvz=263) 2.2 <=5.9 RECOMMENDED COUMADIN/WARFARIN INR THERAPY RANGESSTANDARD DOSE: 2.0 - 3.0 Inclu connie: PROPHYLAXIS for venous thrombosis, systemic embolization; TREATMENT for lupis ous thrombosis and/or pulmonary embolus.HIGH RISK: Target INR is 2.5-3.5 for pat ients with mechanical heart valves.CBC W/PLT COUNT & AUTO [id number] 03:28:00* Test Item Value Reference Range Comments WHITE BLOOD CELL COUNT (BEAKER) (test hwsk=096) 4.4 K/ L 3.5-10.5 RED BLOOD CELL COUNT (BEAKER) (test ssgf=241) 2.80 M/ L 3.93-5.22 HEMOGLOBIN (BEAKER) (test egdu=911) 8.0 GM/DL 11.2-15.7 HEMATOCRIT (BEAKER) (test mlpu=850) 23.6 % 34.1-44.9 MEAN CORPUSCULAR VOLUME (BEAKER) (test gbmd=593) 84.3 fL 79.4-94.8 MEAN CORPUSCULAR HEMOGLOBIN (BEAKER) (test gygr=052) 28.6 pg 25.6-32.2 MEAN CORPUSCULAR HEMOGLOBIN CONC (BEAKER) (test carr=641) 33.9 GM/DL 32.2-35.5 RED CELL DISTRIBUTION WIDTH (BEAKER) (test enlj=279) 14.7 % 11.7-14.4 PLATELET COUNT (BEAKER) (test suar=756) 87 K/CU MM 150-450 MEAN PLATELET VOLUME (BEAKER) (test estw=333) 10.6 fL 9.4-12.3 NUCLEATED RED BLOOD CELLS (BEAKER) (test ahnl=082) 1 /100 WBC 0-0 NEUTROPHILS RELATIVE PERCENT (BEAKER) (test yqzh=282) 86 % LYMPHOCYTES RELATIVE PERCENT (BEAKER) (test dull=563) 9 % MONOCYTES RELATIVE PERCENT (BEAKER) (test ayyz=044) 4 % EOSINOPHILS RELATIVE PERCENT (BEAKER) (test ywyx=043) 1 % BASOPHILS RELATIVE PERCENT (BEAKER) (test bnqs=371) 0 % NEUTROPHILS ABSOLUTE COUNT (BEAKER) (test kmtw=921) 3.73 K/ L 1.56-6.13 LYMPHOCYTES ABSOLUTE COUNT (BEAKER) (test lquc=583) 0.40 K/ L 1.18-3.74 MONOCYTES ABSOLUTE COUNT (BEAKER) (test pkss=044) 0.17 K/ L 0.24-0.36 EOSINOPHILS ABSOLUTE COUNT (BEAKER) (test gmfn=710) 0.02 K/ L 0.04-0.36 BASOPHILS ABSOLUTE COUNT (BEAKER) (test yrub=247) 0.01 K/ L 0.01-0.08 IMMATURE GRANULOCYTES-RELATIVE PERCENT (BEAKER) (test dqgl=6866) 1 % 0-1 OXYGEN SATURATION, [id number] 03:28:00* Test Item Value Reference Range Comments O2 SATURATION (MEASURED) (BEAKER) (test hesl=8557) 63.9 % BLOOD GAS, [id number] 03:26:00* Test Item Value Reference Range Comments PH ARTERIAL (BEAKER) (test mldg=477) 7.54 7.35-7.45 PCO2 ARTERIAL (BEAKER) (test pxuz=639) 32 mmHg 35-45 PO2 ARTERIAL (BEAKER) (test rfep=856) 45 mmHg 80-90 O2 SATURATION ARTERIAL (BEAKER) (test qgzf=026) 88.2 % 96.0-97.0 HCO3 ARTERIAL (BEAKER) (test cofa=512) 27 mmol/L 21-29 BASE EXCESS ARTERIAL (BEAKER) (test deoq=395) 4.1 mmol/L -2.0-3.0 PATIENT TEMPERATURE (BEAKER) (test bgfr=7805) 36.2 C FIO2 (BEAKER) (test tjuf=0785) 40.0 % BASIC METABOLIC [id number] 00:39:00* Test Item Value Reference Range Comments SODIUM (BEAKER) (test tqoa=513) 147 meq/L 136-145 POTASSIUM (BEAKER) (test zdlc=520) 4.7 meq/L 3.5-5.1 CHLORIDE (BEAKER) (test unbk=073) 115 meq/L 98-107 CO2 (BEAKER) (test huig=339) 25 meq/L 22-29 BLOOD UREA NITROGEN (BEAKER) (test izno=406) 17 mg/dL 7-21 CREATININE (BEAKER) (test ykbv=212) 1.25 mg/dL 0.57-1.25 GLUCOSE RANDOM (BEAKER) (test wgat=301) 116 mg/dL 70-105 CALCIUM (BEAKER) (test qtyk=294) 9.3 mg/dL 8.4-10.2 EGFR (BEAKER) (test qdry=7345) 45 mL/min/1.73 sq m ESTIMATED GFR IS NOT ACCURATE CREATININE CLEARANCE IN PREDICTING GLOMERULAR FILTRATION RATE. ESTIMATED GFR IS NOT APPLICABLE FOR DIALYSIS PATIENTS. [id number] 00:22:00* Test Item Value Reference Range Comments PARTIAL THROMBOPLASTIN TIME (BEAKER) (test fdmy=535) 45.8 seconds 22.5-36.0 PROTHROMBIN [id number] 00:21:00* Test Item Value Reference Range Comments PROTIME (BEAKER) (test osyi=374) 22.5 seconds 11.7-14.7 INR (BEAKER) (test mrwg=900) 2.0 <=5.9 RECOMMENDED COUMADIN/WARFARIN INR THERAPY RANGESSTANDARD DOSE: 2.0 - 3.0 Inclu connie: PROPHYLAXIS for venous thrombosis, systemic embolization; TREATMENT for lupis ous thrombosis and/or pulmonary embolus.HIGH RISK: Target INR is 2.5-3.5 for pat ients with mechanical heart valves.[id number] 00:21:00* Test Item Value Reference Range Comments FIBRINOGEN LEVEL (BEAKER) (test qtpe=895) 257 mg/dl 225-434 BLOOD GAS, [id number] 00:18:00* Test Item Value Reference Range Comments PH ARTERIAL (BEAKER) (test hqrq=159) 7.52 7.35-7.45 PCO2 ARTERIAL (BEAKER) (test htnv=717) 35 mmHg 35-45 PO2 ARTERIAL (BEAKER) (test wmmj=543) 377 mmHg 80-90 O2 SATURATION ARTERIAL (BEAKER) (test butx=515) 99.8 % 96.0-97.0 HCO3 ARTERIAL (BEAKER) (test kbqg=359) 28 mmol/L 21-29 BASE EXCESS ARTERIAL (BEAKER) (test nomo=644) 4.5 mmol/L -2.0-3.0 PATIENT TEMPERATURE (BEAKER) (test okac=2247) 36.2 C FIO2 (BEAKER) (test oyiv=0639) 60.0 % HGB/HCT (H&H) - STAT [id number] 00:18:00* Test Item Value Reference Range Comments HEMOGLOBIN (BEAKER) (test nbjp=347) 10.1 g/dL 12.0-15.0 HEMATOCRIT (BEAKER) (test ciup=799) 30.0 % 36.0-45.0 PLATELET [id number] 00:13:00* Test Item Value Reference Range Comments PLATELET COUNT (BEAKER) (test nhvt=850) 98 K/CU MM 150-450 HEMOGLOBIN AND [id number] 00:13:00* Test Item Value Reference Range Comments HEMOGLOBIN (BEAKER) (test mogq=674) 9.4 GM/DL 11.2-15.7 HEMATOCRIT (BEAKER) (test ckrx=034) 27.5 % 34.1-44.9 GLUCOSE-STAT [id number] 00:11:00* Test Item Value Reference Range Comments GLUCOSE RANDOM (BEAKER) (test mgdn=109) 110 mg/dL 70-110 SODIUM NA-STAT [id number] 00:11:00* Test Item Value Reference Range Comments SODIUM (BEAKER) (test wxkg=491) 142 meq/L 135-148 POTASSIUM-STAT [id number] 00:11:00* Test Item Value Reference Range Comments POTASSIUM (BEAKER) (test tfgv=029) 4.4 meq/L 3.6-5.5 LACTIC ACID, ARTERIAL, WHOLE [id number] 22:53:00* Test Item Value Reference Range Comments LACTATE BLOOD ARTERIAL (2) (BEAKER) (test whgr=2705) 2.4 mmol/L 0.5-2.2 Effective 03/10/2016: Units/Reference Range ChangeNew: 0.5-2.2 mmol/L Previous: 5 -20 mg/dLSODIUM NA-STAT [id number] 22:42:00* Test Item Value Reference Range Comments SODIUM (BEAKER) (test ggkp=434) 141 meq/L 135-148 GLUCOSE-STAT [id number] 22:41:00* Test Item Value Reference Range Comments GLUCOSE RANDOM (BEAKER) (test jexh=061) 102 mg/dL 70-110 POTASSIUM-STAT [id number] 22:41:00* Test Item Value Reference Range Comments POTASSIUM (BEAKER) (test mglm=113) 4.3 meq/L 3.6-5.5 BLOOD GAS, [id number] 22:41:00* Test Item Value Reference Range Comments PH ARTERIAL (BEAKER) (test rfes=520) 7.52 7.35-7.45 PCO2 ARTERIAL (BEAKER) (test bnmu=525) 34 mmHg 35-45 PO2 ARTERIAL (BEAKER) (test jbuj=879) 448 mmHg 80-90 O2 SATURATION ARTERIAL (BEAKER) (test trvs=028) 99.9 % 96.0-97.0 HCO3 ARTERIAL (BEAKER) (test jeiv=398) 27 mmol/L 21-29 BASE EXCESS ARTERIAL (BEAKER) (test pyle=521) 4.0 mmol/L -2.0-3.0 PATIENT TEMPERATURE (BEAKER) (test wzvu=9530) 36.2 C FIO2 (BEAKER) (test mxiw=3378) 60.0 % HGB/HCT (H&H) - STAT [id number] 22:41:00* Test Item Value Reference Range Comments HEMOGLOBIN (BEAKER) (test jnml=331) 9.7 g/dL 12.0-15.0 HEMATOCRIT (BEAKER) (test oeor=574) 29.0 % 36.0-45.0 [id number] 21:10:00* Test Item Value Reference Range Comments PARTIAL THROMBOPLASTIN TIME (BEAKER) (test xxry=497) 47.7 seconds 22.5-36.0 PROTHROMBIN [id number] 21:09:00* Test Item Value Reference Range Comments PROTIME (BEAKER) (test wxvv=976) 21.4 seconds 11.7-14.7 INR (BEAKER) (test oeuk=611) 1.9 <=5.9 RECOMMENDED COUMADIN/WARFARIN INR THERAPY RANGESSTANDARD DOSE: 2.0 - 3.0 Inclu connie: PROPHYLAXIS for venous thrombosis, systemic embolization; TREATMENT for lupis ous thrombosis and/or pulmonary embolus.HIGH RISK: Target INR is 2.5-3.5 for pat ients with mechanical heart valves.[id number] 21:09:00* Test Item Value Reference Range Comments FIBRINOGEN LEVEL (BEAKER) (test syvm=058) 247 mg/dl 225-434 BASIC METABOLIC [id number] 20:52:00* Test Item Value Reference Range Comments SODIUM (BEAKER) (test osxt=762) 149 meq/L 136-145 POTASSIUM (BEAKER) (test dyik=079) 4.7 meq/L 3.5-5.1 Specimen slightly hemolyzed CHLORIDE (BEAKER) (test vate=102) 116 meq/L 98-107 CO2 (BEAKER) (test jflf=550) 26 meq/L 22-29 BLOOD UREA NITROGEN (BEAKER) (test ugzp=864) 17 mg/dL 7-21 CREATININE (BEAKER) (test kgcw=161) 1.28 mg/dL 0.57-1.25 Specimen slightly hemolyzed GLUCOSE RANDOM (BEAKER) (test crhu=928) 137 mg/dL 70-105 CALCIUM (BEAKER) (test jvqh=498) 10.4 mg/dL 8.4-10.2 EGFR (BEAKER) (test ogjk=0407) 44 mL/min/1.73 sq m ESTIMATED GFR IS NOT ACCURATE CREATININE CLEARANCE IN PREDICTING GLOMERULAR FILTRATION RATE. ESTIMATED GFR IS NOT APPLICABLE FOR DIALYSIS PATIENTS. LACTIC ACID, ARTERIAL, WHOLE [id number] 20:46:00* Test Item Value Reference Range Comments LACTATE BLOOD ARTERIAL (2) (BEAKER) (test eppl=1761) 3.1 mmol/L 0.5-2.2 Specimen slightly hemolyzed Effective 03/10/2016: Units/Reference Range ChangeNew: 0.5-2.2 mmol/L Previous: 5 -20 mg/dLPLATELET [id number] 20:36:00* Test Item Value Reference Range Comments PLATELET COUNT (BEAKER) (test irke=616) 123 K/CU MM 150-450 HEMOGLOBIN AND [id number] 20:36:00* Test Item Value Reference Range Comments HEMOGLOBIN (BEAKER) (test diaf=426) 10.3 GM/DL 11.2-15.7 HEMATOCRIT (BEAKER) (test sbgk=693) 30.0 % 34.1-44.9 BLOOD GAS, [id number] 20:23:00* Test Item Value Reference Range Comments PH ARTERIAL (BEAKER) (test hybl=447) 7.53 7.35-7.45 PCO2 ARTERIAL (BEAKER) (test went=922) 33 mmHg 35-45 PO2 ARTERIAL (BEAKER) (test muus=526) 427 mmHg 80-90 O2 SATURATION ARTERIAL (BEAKER) (test qnjr=016) 99.9 % 96.0-97.0 HCO3 ARTERIAL (BEAKER) (test eivn=832) 27 mmol/L 21-29 BASE EXCESS ARTERIAL (BEAKER) (test wcld=294) 4.5 mmol/L -2.0-3.0 PATIENT TEMPERATURE (BEAKER) (test ddmz=8273) 36.0 C FIO2 (BEAKER) (test ugge=9692) 100.0 % OXYGEN SATURATION, [id number] 20:21:00* Test Item Value Reference Range Comments O2 SATURATION (MEASURED) (BEAKER) (test spar=1732) 74.8 % RAD, CHEST, 1 VIEW, NON [id number] 19:19:00Reason for exam:->s/p mediastinal exploration, removal of clotShould this be performed at the bedside?->YesFINAL REPORT Portable chest. Clinical history: Status post mediastinal exploration, removal of clot. COMPARISON STUDY: February 01, 2018. Fi celine: The cardiac size is enlarged. Multiple support lines and tubes are seen in place, as on previous. There has been significant improvement in the opacificati on in the left thorax. Some opacification remains with blunting of the costophre sierra angles. No pneumothorax is seen. A second left sided chest tube has been ins erted. IMPRESSION: Significant improvement in left-sided pulmonary opacity. A se cond left-sided chest tube has been inserted. Signed: Emiliano Colby MDReport V erified Date/Time: 02/01/2018 19:19:31 Reading Location: [facility] C013[facility] 07 :19 PM BASIC METABOLIC [id number] 19:13:00* Test Item Value Reference Range Comments SODIUM (BEAKER) (test fiai=664) 151 meq/L 136-145 POTASSIUM (BEAKER) (test ckoj=761) 4.3 meq/L 3.5-5.1 Specimen slightly hemolyzed CHLORIDE (BEAKER) (test lvng=117) 115 meq/L 98-107 CO2 (BEAKER) (test wfxj=346) 26 meq/L 22-29 BLOOD UREA NITROGEN (BEAKER) (test qcmr=196) 16 mg/dL 7-21 CREATININE (BEAKER) (test jiby=165) 1.27 mg/dL 0.57-1.25 Specimen slightly hemolyzed GLUCOSE RANDOM (BEAKER) (test rgpj=791) 146 mg/dL 70-105 CALCIUM (BEAKER) (test fhan=591) 8.7 mg/dL 8.4-10.2 EGFR (BEAKER) (test meif=5275) 44 mL/min/1.73 sq m ESTIMATED GFR IS NOT ACCURATE CREATININE CLEARANCE IN PREDICTING GLOMERULAR FILTRATION RATE. ESTIMATED GFR IS NOT APPLICABLE FOR DIALYSIS PATIENTS. LACTIC ACID, ARTERIAL, WHOLE [id number] 19:07:00* Test Item Value Reference Range Comments LACTATE BLOOD ARTERIAL (2) (BEAKER) (test zjhf=9006) 3.4 mmol/L 0.5-2.2 Specimen slightly hemolyzed Effective 03/10/2016: Units/Reference Range ChangeNew: 0.5-2.2 mmol/L Previous: 5 -20 mg/[id number] 19:00:00* Test Item Value Reference Range Comments FIBRINOGEN LEVEL (BEAKER) (test vssb=811) 234 mg/dl 225-434 [id number] 19:00:00* Test Item Value Reference Range Comments PARTIAL THROMBOPLASTIN TIME (BEAKER) (test ehoo=287) 47.5 seconds 22.5-36.0 PROTHROMBIN [id number] 18:59:00* Test Item Value Reference Range Comments PROTIME (BEAKER) (test ddxa=624) 21.4 seconds 11.7-14.7 INR (BEAKER) (test wpol=528) 1.9 <=5.9 RECOMMENDED COUMADIN/WARFARIN INR THERAPY RANGESSTANDARD DOSE: 2.0 - 3.0 Inclu connie: PROPHYLAXIS for venous thrombosis, systemic embolization; TREATMENT for lupis ous thrombosis and/or pulmonary embolus.HIGH RISK: Target INR is 2.5-3.5 for pat ients with mechanical heart valves.PLATELET [id number] 18:48:00* Test Item Value Reference Range Comments PLATELET COUNT (BEAKER) (test fase=589) 114 K/CU MM 150-450 HEMOGLOBIN AND [id number] 18:48:00* Test Item Value Reference Range Comments HEMOGLOBIN (BEAKER) (test jnif=866) 7.4 GM/DL 11.2-15.7 HEMATOCRIT (BEAKER) (test huvj=971) 21.3 % 34.1-44.9 CALCIUM, [id number] 18:26:00* Test Item Value Reference Range Comments CALCIUM IONIZED (BEAKER) (test ndif=161) 1.03 mmol/L 1.12-1.27 PH, BLOOD (BEAKER) (test btfd=0132) 7.54 SODIUM NA-STAT [id number] 18:26:00* Test Item Value Reference Range Comments SODIUM (BEAKER) (test dvjr=865) 143 meq/L 135-148 POTASSIUM-STAT [id number] 18:26:00* Test Item Value Reference Range Comments POTASSIUM (BEAKER) (test fdpd=695) 4.1 meq/L 3.6-5.5 OXYGEN SATURATION, [id number] 18:26:00* Test Item Value Reference Range Comments O2 SATURATION (MEASURED) (BEAKER) (test gaen=9080) 79.0 % BLOOD GAS, [id number] 18:26:00* Test Item Value Reference Range Comments PH ARTERIAL (BEAKER) (test sxhu=744) 7.54 7.35-7.45 PCO2 ARTERIAL (BEAKER) (test zdca=163) 29 mmHg 35-45 PO2 ARTERIAL (BEAKER) (test jwbs=488) 461 mmHg 80-90 O2 SATURATION ARTERIAL (BEAKER) (test kfna=815) 99.9 % 96.0-97.0 HCO3 ARTERIAL (BEAKER) (test lock=987) 25 mmol/L 21-29 BASE EXCESS ARTERIAL (BEAKER) (test oacb=215) 1.9 mmol/L -2.0-3.0 PATIENT TEMPERATURE (BEAKER) (test naft=3693) 33.0 C FIO2 (BEAKER) (test hccb=4645) 40.0 % GLUCOSE-STAT [id number] 18:26:00* Test Item Value Reference Range Comments GLUCOSE RANDOM (BEAKER) (test objh=643) 128 mg/dL 70-110 HGB/HCT (H&H) - STAT [id number] 18:26:00* Test Item Value Reference Range Comments HEMOGLOBIN (BEAKER) (test juat=334) 7.4 g/dL 12.0-15.0 HEMATOCRIT (BEAKER) (test bxyp=623) 22.0 % 36.0-45.0 CALCIUM, [id number] 16:59:00* Test Item Value Reference Range Comments CALCIUM IONIZED (BEAKER) (test bebl=588) 1.15 mmol/L 1.12-1.27 PH, BLOOD (BEAKER) (test udud=3559) 7.42 BLOOD GAS, [id number] 16:58:00* Test Item Value Reference Range Comments PH ARTERIAL (BEAKER) (test mibi=343) 7.42 7.35-7.45 PCO2 ARTERIAL (BEAKER) (test pczy=983) 40 mmHg 35-45 PO2 ARTERIAL (BEAKER) (test asin=658) 461 mmHg 80-90 O2 SATURATION ARTERIAL (BEAKER) (test uucv=025) 99.9 % 96.0-97.0 HCO3 ARTERIAL (BEAKER) (test avbw=171) 25 mmol/L 21-29 BASE EXCESS ARTERIAL (BEAKER) (test jwws=331) 0.6 mmol/L -2.0-3.0 PATIENT TEMPERATURE (BEAKER) (test zfbf=2389) 36.0 C FIO2 (BEAKER) (test piwr=6527) 100.0 % GLUCOSE-STAT [id number] 16:58:00* Test Item Value Reference Range Comments GLUCOSE RANDOM (BEAKER) (test mxlr=313) 129 mg/dL 70-110 HGB/HCT (H&H) - STAT [id number] 16:58:00* Test Item Value Reference Range Comments HEMOGLOBIN (BEAKER) (test poyr=164) 9.7 g/dL 12.0-15.0 HEMATOCRIT (BEAKER) (test nglz=694) 29.0 % 36.0-45.0 SODIUM NA-STAT [id number] 16:57:00* Test Item Value Reference Range Comments SODIUM (BEAKER) (test bekl=035) 145 meq/L 135-148 POTASSIUM-STAT [id number] 16:57:00* Test Item Value Reference Range Comments POTASSIUM (BEAKER) (test bwwv=021) 3.8 meq/L 3.6-5.5 CALCIUM, [id number] 16:07:00* Test Item Value Reference Range Comments CALCIUM IONIZED (BEAKER) (test pply=616) 1.22 mmol/L 1.12-1.27 PH, BLOOD (BEAKER) (test bvux=8734) 7.52 BLOOD GAS, [id number] 16:06:00* Test Item Value Reference Range Comments PH ARTERIAL (BEAKER) (test cgvt=810) 7.52 7.35-7.45 PCO2 ARTERIAL (BEAKER) (test tkkx=144) 35 mmHg 35-45 PO2 ARTERIAL (BEAKER) (test nezx=404) 444 mmHg 80-90 O2 SATURATION ARTERIAL (BEAKER) (test dvrm=808) 99.9 % 96.0-97.0 HCO3 ARTERIAL (BEAKER) (test ntfm=639) 28 mmol/L 21-29 BASE EXCESS ARTERIAL (BEAKER) (test viag=257) 4.8 mmol/L -2.0-3.0 PATIENT TEMPERATURE (BEAKER) (test iozp=2396) 35.2 C FIO2 (BEAKER) (test zbrt=8296) 100.0 % SODIUM NA-STAT [id number] 16:06:00* Test Item Value Reference Range Comments SODIUM (BEAKER) (test zbbq=206) 145 meq/L 135-148 GLUCOSE-STAT [id number] 16:06:00* Test Item Value Reference Range Comments GLUCOSE RANDOM (BEAKER) (test fcwd=988) 125 mg/dL 70-110 HGB/HCT (H&H) - STAT [id number] 16:06:00* Test Item Value Reference Range Comments HEMOGLOBIN (BEAKER) (test lslm=016) 7.7 g/dL 12.0-15.0 HEMATOCRIT (BEAKER) (test rpjc=487) 23.0 % 36.0-45.0 POTASSIUM-STAT [id number] 16:05:00* Test Item Value Reference Range Comments POTASSIUM (BEAKER) (test wtrs=570) 4.0 meq/L 3.6-5.5 POCT-GLUCOSE [id number] 13:59:00* Test Item Value Reference Range Comments POC-GLUCOSE METER (BEAKER) (test uyms=5673) 84 mg/dL 70-110 TESTED AT [facility] [address] [place] [address] BASIC METABOLIC [id number] 12:51:00* Test Item Value Reference Range Comments SODIUM (BEAKER) (test lmfb=893) 153 meq/L 136-145 POTASSIUM (BEAKER) (test mukk=784) 4.6 meq/L 3.5-5.1 CHLORIDE (BEAKER) (test tlig=166) 118 meq/L 98-107 CO2 (BEAKER) (test xjhz=963) 27 meq/L 22-29 BLOOD UREA NITROGEN (BEAKER) (test ugbk=275) 18 mg/dL 7-21 CREATININE (BEAKER) (test pnrm=872) 1.42 mg/dL 0.57-1.25 GLUCOSE RANDOM (BEAKER) (test iwqt=909) 126 mg/dL 70-105 CALCIUM (BEAKER) (test hxgo=689) 9.6 mg/dL 8.4-10.2 EGFR (BEAKER) (test xqws=9590) 39 mL/min/1.73 sq m ESTIMATED GFR IS NOT ACCURATE CREATININE CLEARANCE IN PREDICTING GLOMERULAR FILTRATION RATE. ESTIMATED GFR IS NOT APPLICABLE FOR DIALYSIS PATIENTS. [id number] 12:46:00* Test Item Value Reference Range Comments PARTIAL THROMBOPLASTIN TIME (BEAKER) (test lizw=265) 49.9 seconds 22.5-36.0 PROTHROMBIN [id number] 12:45:00* Test Item Value Reference Range Comments PROTIME (BEAKER) (test badk=217) 20.3 seconds 11.7-14.7 INR (BEAKER) (test dyhd=139) 1.7 <=5.9 RECOMMENDED COUMADIN/WARFARIN INR THERAPY RANGESSTANDARD DOSE: 2.0 - 3.0 Inclu connie: PROPHYLAXIS for venous thrombosis, systemic embolization; TREATMENT for lupis ous thrombosis and/or pulmonary embolus.HIGH RISK: Target INR is 2.5-3.5 for pat ients with mechanical heart valves.[id number] 12:45:00* Test Item Value Reference Range Comments FIBRINOGEN LEVEL (BEAKER) (test lkmr=673) 308 mg/dl 225-434 LACTIC ACID, ARTERIAL, WHOLE [id number] 12:45:00* Test Item Value Reference Range Comments LACTATE BLOOD ARTERIAL (2) (BEAKER) (test uspu=0759) 4.4 mmol/L 0.5-2.2 Effective 03/10/2016: Units/Reference Range ChangeNew: 0.5-2.2 mmol/L Previous: 5 -20 mg/dLPLATELET [id number] 12:35:00* Test Item Value Reference Range Comments PLATELET COUNT (BEAKER) (test kjjc=539) 60 K/CU MM 150-450 HEMOGLOBIN AND [id number] 12:35:00* Test Item Value Reference Range Comments HEMOGLOBIN (BEAKER) (test nxnz=479) 7.5 GM/DL 11.2-15.7 HEMATOCRIT (BEAKER) (test eycv=647) 22.6 % 34.1-44.9 OXYGEN SATURATION, [id number] 12:27:00* Test Item Value Reference Range Comments O2 SATURATION (MEASURED) (BEAKER) (test ntre=6068) 73.8 % BLOOD GAS, [id number] 12:23:00* Test Item Value Reference Range Comments PH ARTERIAL (BEAKER) (test cuob=482) 7.41 7.35-7.45 PCO2 ARTERIAL (BEAKER) (test loga=803) 47 mmHg 35-45 PO2 ARTERIAL (BEAKER) (test ccnz=965) 343 mmHg 80-90 O2 SATURATION ARTERIAL (BEAKER) (test unpv=222) 99.8 % 96.0-97.0 HCO3 ARTERIAL (BEAKER) (test ykqj=418) 29 mmol/L 21-29 BASE EXCESS ARTERIAL (BEAKER) (test rcqg=994) 4.0 mmol/L -2.0-3.0 PATIENT TEMPERATURE (BEAKER) (test ekbn=9234) 36.4 C FIO2 (BEAKER) (test rnqe=9270) 100.0 % GLUCOSE-STAT [id number] 12:23:00* Test Item Value Reference Range Comments GLUCOSE RANDOM (BEAKER) (test jhpw=225) 121 mg/dL 70-110 THROMBOELASTOGRAPH (TEG)2018-02-01 11:39:00* Test Item Value Reference Range Comments TEG ACTIVATED CLOTTING TIME (BEAKER) (test ukki=7954) 10.2 minutes 4.0-7.0 TEG FIBRINOGEN ACTIVITY (BEAKER) (test dxlu=4404) 62.3 degrees 61.0-73.0 TEG PLT. AGGREGATION (BEAKER) (test qxzj=1224) 57.9 MM 55.0-65.0 TEG FIBRINOLYSIS (BEAKER) (test iosw=6613) 0.0 % 0.0-5.0 TGH ACTIVATED CLOTTING TIME (BEAKER) (test uvei=9357) 8.2 minutes 4.0-7.0 TGH FIBRINOGEN ACTIVITY (BEAKER) (test aclk=9049) 67.3 degrees 61.0-73.0 TGH PLT. AGGREGATION (BEAKER) (test kfpu=3334) 59.0 MM 55.0-65.0 TGH FIBRINOLYSIS (BEAKER) (test sthf=6726) 0.0 % 0.0-5.0 ANTITHROMBIN [id number] 10:38:00* Test Item Value Reference Range Comments ANTITHROMBIN III ACTIVITY (BEAKER) (test tnpa=561) 40.0 % 80.0-120.0 ANTITHROMBIN [id number] 10:36:00* Test Item Value Reference Range Comments ANTITHROMBIN III ACTIVITY (BEAKER) (test cwsh=042) 33.0 % 80.0-120.0 BLOOD GAS, [id number] 10:18:00* Test Item Value Reference Range Comments PH ARTERIAL (BEAKER) (test bmej=731) 7.41 7.35-7.45 PCO2 ARTERIAL (BEAKER) (test jxiy=194) 46 mmHg 35-45 PO2 ARTERIAL (BEAKER) (test umzh=495) 365 mmHg 80-90 O2 SATURATION ARTERIAL (BEAKER) (test smul=382) 99.8 % 96.0-97.0 HCO3 ARTERIAL (BEAKER) (test igrm=733) 28 mmol/L 21-29 BASE EXCESS ARTERIAL (BEAKER) (test dudd=445) 3.2 mmol/L -2.0-3.0 PATIENT TEMPERATURE (BEAKER) (test rhnh=6530) 36.3 C FIO2 (BEAKER) (test wwah=8686) 100.0 % GLUCOSE-STAT [id number] 10:17:00* Test Item Value Reference Range Comments GLUCOSE RANDOM (BEAKER) (test didz=641) 108 mg/dL 70-110 LACTIC ACID, ARTERIAL, WHOLE [id number] 10:09:00* Test Item Value Reference Range Comments LACTATE BLOOD ARTERIAL (2) (BEAKER) (test jlgn=1801) 5.3 mmol/L 0.5-2.2 Specimen slightly hemolyzed Effective 03/10/2016: Units/Reference Range ChangeNew: 0.5-2.2 mmol/L Previous: 5 -20 mg/dLBASIC METABOLIC [id number] 08:58:00* Test Item Value Reference Range Comments SODIUM (BEAKER) (test ghsu=944) 155 meq/L 136-145 POTASSIUM (BEAKER) (test msyv=387) 4.7 meq/L 3.5-5.1 CHLORIDE (BEAKER) (test jpvs=362) 120 meq/L 98-107 CO2 (BEAKER) (test ipon=597) 27 meq/L 22-29 BLOOD UREA NITROGEN (BEAKER) (test bxwh=164) 16 mg/dL 7-21 CREATININE (BEAKER) (test zsnv=534) 1.35 mg/dL 0.57-1.25 GLUCOSE RANDOM (BEAKER) (test bvui=527) 106 mg/dL 70-105 CALCIUM (BEAKER) (test agel=210) 10.1 mg/dL 8.4-10.2 EGFR (BEAKER) (test jklo=7119) 41 mL/min/1.73 sq m ESTIMATED GFR IS NOT ACCURATE CREATININE CLEARANCE IN PREDICTING GLOMERULAR FILTRATION RATE. ESTIMATED GFR IS NOT APPLICABLE FOR DIALYSIS PATIENTS. RAD, CHEST, 1 VIEW, NON [id number] 08:38:00Reason for exam:->intubatedShould this be performed at the bedside?->YesFINAL REPORT Chest one view INDICATION: Intubated COMPARISON: 01/31/2018 IMPRESSION: Support devices are stable. Median sternotomy changes are noted. There are low lung volumes with similar lung opacities, in part due to edema and atelectasis. Pneumonitis cannot be excluded on the left given asymmetry. Left pleural effusion has likely redistributed. A small right pleural effusion is suspected. No pneumothorax is seen. Signed: Virgilio Kerns MDReport Verified Date/Time: 02/01/2018 08:38:04 Reading Location: [facility] Radiology Reading Room [id number] 08:37:00* Test Item Value Reference Range Comments PARTIAL THROMBOPLASTIN TIME (BERENETTA) (test stkm=350) 53.2 seconds 22.5-36.0 PROTHROMBIN TIME/[id number] 08:36:00* Test Item Value Reference Range Comments PROTIME (CASEY) (test soug=460) 18.7 seconds 11.7-14.7 INR (BEAKER) (test hbdo=743) 1.6 <=5.9 RECOMMENDED COUMADIN/WARFARIN INR THERAPY RANGESSTANDARD DOSE: 2.0 - 3.0 Inclu connie: PROPHYLAXIS for venous thrombosis, systemic embolization; TREATMENT for lupis ous thrombosis and/or pulmonary embolus.HIGH RISK: Target INR is 2.5-3.5 for pat ients with mechanical heart valves.[id number] 08:36:00* Test Item Value Reference Range Comments FIBRINOGEN LEVEL (BEAKER) (test axys=226) 273 mg/dl 225-434 CALCIUM, [id number] 08:24:00* Test Item Value Reference Range Comments CALCIUM IONIZED (BEAKER) (test zpdj=542) 1.36 mmol/L 1.12-1.27 PH, BLOOD (BEAKER) (test gbbv=4388) 7.39 Check serum Ionized Calcium level after 4 hours after IV Calcium replacement. BLOOD GAS, [id number] 08:24:00* Test Item Value Reference Range Comments PH ARTERIAL (BEAKER) (test ymig=383) 7.40 7.35-7.45 PCO2 ARTERIAL (BEAKER) (test cuub=549) 49 mmHg 35-45 PO2 ARTERIAL (BEAKER) (test koxw=613) 345 mmHg 80-90 O2 SATURATION ARTERIAL (BEAKER) (test hqaq=866) 99.8 % 96.0-97.0 HCO3 ARTERIAL (BEAKER) (test lkoe=571) 30 mmol/L 21-29 BASE EXCESS ARTERIAL (BEAKER) (test trtl=062) 4.1 mmol/L -2.0-3.0 PATIENT TEMPERATURE (BEAKER) (test okdb=7746) 36.3 C FIO2 (BEAKER) (test micf=1159) 100.0 % PLATELET [id number] 08:24:00* Test Item Value Reference Range Comments PLATELET COUNT (BEAKER) (test lhxz=648) 74 K/CU MM 150-450 HEMOGLOBIN AND [id number] 08:24:00* Test Item Value Reference Range Comments HEMOGLOBIN (BEAKER) (test itxt=479) 8.5 GM/DL 11.2-15.7 HEMATOCRIT (BEAKER) (test cjju=255) 25.3 % 34.1-44.9 OXYGEN SATURATION, [id number] 08:23:00* Test Item Value Reference Range Comments O2 SATURATION (MEASURED) (BEAKER) (test yevo=1471) 75.8 % GLUCOSE-STAT [id number] 08:23:00* Test Item Value Reference Range Comments GLUCOSE RANDOM (BEAKER) (test szhc=870) 98 mg/dL 70-110 HEPARIN ASSAY - [id number] 08:22:00* Test Item Value Reference Range Comments UNFRACTIONATED HEPARIN-ANTI 10A (BEAKER) (test seff=7647) < u/ml 0.30-0.70 Recommendations for Monitoring Unfractionated Heparin Therapeutic Range: 0.3-0. 7 u/mL with continuous IV infusionPOCT-GLUCOSE [id number] 08:18:00* Test Item Value Reference Range Comments POC-GLUCOSE METER (BEAKER) (test kvrb=8780) 131 mg/dL 70-110 TESTED AT [facility] [address] [facility] [address] [id number] 06:47:00* Test Item Value Reference Range Comments PARTIAL THROMBOPLASTIN TIME (BEAKER) (test joer=482) 69.7 seconds 22.5-36.0 PROTHROMBIN TIME/[id number] 06:46:00* Test Item Value Reference Range Comments PROTIME (BEAKER) (test cwvl=873) 23.5 seconds 11.7-14.7 INR (BEAKER) (test zeto=159) 2.1 <=5.9 RECOMMENDED COUMADIN/WARFARIN INR THERAPY RANGESSTANDARD DOSE: 2.0 - 3.0 Inclu connie: PROPHYLAXIS for venous thrombosis, systemic embolization; TREATMENT for lupis ous thrombosis and/or pulmonary embolus.HIGH RISK: Target INR is 2.5-3.5 for pat ients with mechanical heart valves.[id number] 06:46:00* Test Item Value Reference Range Comments FIBRINOGEN LEVEL (BEAKER) (test sarb=167) 239 mg/dl 225-434 CBC (HEMOGRAM ONLY)2018-02-01 06:31:00* Test Item Value Reference Range Comments WHITE BLOOD CELL COUNT (BEAKER) (test ukir=464) 6.3 K/ L 3.5-10.5 RED BLOOD CELL COUNT (BEAKER) (test lwqe=765) 2.71 M/ L 3.93-5.22 HEMOGLOBIN (BEAKER) (test hmid=822) 7.9 GM/DL 11.2-15.7 HEMATOCRIT (BEAKER) (test vwga=406) 23.2 % 34.1-44.9 MEAN CORPUSCULAR VOLUME (BEAKER) (test opfk=571) 85.6 fL 79.4-94.8 MEAN CORPUSCULAR HEMOGLOBIN (BEAKER) (test xdqo=028) 29.2 pg 25.6-32.2 MEAN CORPUSCULAR HEMOGLOBIN CONC (BEAKER) (test ielc=539) 34.1 GM/DL 32.2-35.5 RED CELL DISTRIBUTION WIDTH (BEAKER) (test rdwj=124) 14.7 % 11.7-14.4 PLATELET COUNT (BEAKER) (test gxts=223) 74 K/CU MM 150-450 MEAN PLATELET VOLUME (BEAKER) (test vvrm=542) 10.9 fL 9.4-12.3 NUCLEATED RED BLOOD CELLS (BEAKER) (test seot=792) 0 /100 WBC 0-0 BLOOD GAS, [id number] 06:16:00* Test Item Value Reference Range Comments PH ARTERIAL (BEAKER) (test wfeq=828) 7.36 7.35-7.45 PCO2 ARTERIAL (BEAKER) (test euwh=777) 45 mmHg 35-45 PO2 ARTERIAL (BEAKER) (test xidj=863) 351 mmHg 80-90 O2 SATURATION ARTERIAL (BEAKER) (test afda=610) 99.7 % 96.0-97.0 HCO3 ARTERIAL (BEAKER) (test mbnp=239) 25 mmol/L 21-29 BASE EXCESS ARTERIAL (BEAKER) (test xdun=376) -1.0 mmol/L -2.0-3.0 PATIENT TEMPERATURE (BEAKER) (test tnvm=2383) 36.4 C FIO2 (BEAKER) (test pkky=3080) 100.0 % SODIUM NA-STAT [id number] 06:16:00* Test Item Value Reference Range Comments SODIUM (BEAKER) (test icyb=844) 150 meq/L 135-148 POTASSIUM-STAT [id number] 06:16:00* Test Item Value Reference Range Comments POTASSIUM (BEAKER) (test fdsa=004) 3.3 meq/L 3.6-5.5 GLUCOSE-STAT [id number] 06:16:00* Test Item Value Reference Range Comments GLUCOSE RANDOM (BEAKER) (test meno=933) 120 mg/dL 70-110 HGB/HCT (H&H) - STAT [id number] 06:16:00* Test Item Value Reference Range Comments HEMOGLOBIN (BEAKER) (test dlne=931) 8.2 g/dL 12.0-15.0 HEMATOCRIT (BEAKER) (test xpli=925) 24.0 % 36.0-45.0 BLOOD GAS, [id number] 05:32:00* Test Item Value Reference Range Comments PH ARTERIAL (BEAKER) (test ogrj=796) 7.41 7.35-7.45 PCO2 ARTERIAL (BEAKER) (test rfvb=200) 46 mmHg 35-45 PO2 ARTERIAL (BEAKER) (test lqev=119) 409 mmHg 80-90 O2 SATURATION ARTERIAL (BEAKER) (test mvye=165) 99.8 % 96.0-97.0 HCO3 ARTERIAL (BEAKER) (test izos=480) 29 mmol/L 21-29 BASE EXCESS ARTERIAL (BEAKER) (test xtvg=277) 3.4 mmol/L -2.0-3.0 PATIENT TEMPERATURE (BEAKER) (test tbzg=7688) 36.4 C FIO2 (BEAKER) (test cpvs=6088) 100.0 % BLOOD GAS, [id number] 04:28:00* Test Item Value Reference Range Comments PH ARTERIAL (BEAKER) (test lziv=614) 7.41 7.35-7.45 PCO2 ARTERIAL (BEAKER) (test bbyr=134) 46 mmHg 35-45 PO2 ARTERIAL (BEAKER) (test wqjp=139) 407 mmHg 80-90 O2 SATURATION ARTERIAL (BEAKER) (test gakb=894) 99.8 % 96.0-97.0 HCO3 ARTERIAL (BEAKER) (test wqop=804) 28 mmol/L 21-29 BASE EXCESS ARTERIAL (BEAKER) (test xvoj=298) 3.2 mmol/L -2.0-3.0 PATIENT TEMPERATURE (BEAKER) (test syca=6332) 36.6 C FIO2 (BEAKER) (test uaue=0653) 100.0 % SODIUM NA-STAT [id number] 04:28:00* Test Item Value Reference Range Comments SODIUM (BEAKER) (test pulk=162) 149 meq/L 135-148 POTASSIUM-STAT [id number] 04:28:00* Test Item Value Reference Range Comments POTASSIUM (BEAKER) (test hxbp=287) 3.3 meq/L 3.6-5.5 GLUCOSE-STAT [id number] 04:28:00* Test Item Value Reference Range Comments GLUCOSE RANDOM (BEAKER) (test rrzq=638) 137 mg/dL 70-110 HGB/HCT (H&H) - STAT [id number] 04:28:00* Test Item Value Reference Range Comments HEMOGLOBIN (BEAKER) (test veke=781) 9.9 g/dL 12.0-15.0 HEMATOCRIT (BEAKER) (test mwhe=509) 29.0 % 36.0-45.0 THROMBOELASTOGRAPH (TEG)2018-02-01 04:23:00* Test Item Value Reference Range Comments TEG ACTIVATED CLOTTING TIME (BEAKER) (test zuqf=0844) 21.7 minutes 4.0-7.0 TEG FIBRINOGEN ACTIVITY (BEAKER) (test ntaq=9388) 34.0 degrees 61.0-73.0 [address]G [address]T. AGGREGATION (BEAKER) (test jjpp=5155) 50.2 MM 55.0-65.0 TEG FIBRINOLYSIS (BEAKER) (test zdgs=4675) 0.0 % 0.0-5.0 TGH ACTIVATED CLOTTING TIME (BEAKER) (test bxxc=1410) 8.4 minutes 4.0-7.0 TGH FIBRINOGEN ACTIVITY (BEAKER) (test hkrt=1139) 63.7 degrees 61.0-73.0 TGH PLT. AGGREGATION (BEAKER) (test uedy=6071) 54.0 MM 55.0-65.0 TGH FIBRINOLYSIS (BEAKER) (test mora=8035) 0.0 % 0.0-5.0 [id number] 04:15:00* Test Item Value Reference Range Comments PARTIAL THROMBOPLASTIN TIME (BEAKER) (test fnkr=739) 92.9 seconds 22.5-36.0 PROTHROMBIN TIME/[id number] 04:13:00* Test Item Value Reference Range Comments PROTIME (BEAKER) (test nvnu=374) 19.4 seconds 11.7-14.7 INR (BEAKER) (test lmzm=875) 1.6 <=5.9 RECOMMENDED COUMADIN/WARFARIN INR THERAPY RANGESSTANDARD DOSE: 2.0 - 3.0 Inclu connie: PROPHYLAXIS for venous thrombosis, systemic embolization; TREATMENT for lupis ous thrombosis and/or pulmonary embolus.HIGH RISK: Target INR is 2.5-3.5 for pat ients with mechanical heart valves.[id number] 04:13:00* Test Item Value Reference Range Comments FIBRINOGEN LEVEL (BEAKER) (test gcvf=938) 229 mg/dl 225-434 POCT-GLUCOSE [id number] 04:05:00* Test Item Value Reference Range Comments POC-GLUCOSE METER (BEAKER) (test mkxg=9914) 164 mg/dL 70-110 TESTED AT [facility] [address] [facility] [address] PLATELET [id number] 04:01:00* Test Item Value Reference Range Comments PLATELET COUNT (BEAKER) (test heor=154) 89 K/CU MM 150-450 BLOOD GAS, [id number] 03:56:00* Test Item Value Reference Range Comments PH ARTERIAL (BEAKER) (test caxv=824) 7.35 7.35-7.45 PCO2 ARTERIAL (BEAKER) (test yezb=422) 51 mmHg 35-45 PO2 ARTERIAL (BEAKER) (test pujd=987) 344 mmHg 80-90 O2 SATURATION ARTERIAL (BEAKER) (test vszw=069) 99.7 % 96.0-97.0 HCO3 ARTERIAL (BEAKER) (test sjuo=807) 28 mmol/L 21-29 BASE EXCESS ARTERIAL (BEAKER) (test mdgy=644) 1.6 mmol/L -2.0-3.0 PATIENT TEMPERATURE (BEAKER) (test tswm=6033) 36.5 C FIO2 (BEAKER) (test djhx=3116) 40.0 % SODIUM NA-STAT [id number] 03:56:00* Test Item Value Reference Range Comments SODIUM (BEAKER) (test aybi=982) 150 meq/L 135-148 POTASSIUM-STAT [id number] 03:56:00* Test Item Value Reference Range Comments POTASSIUM (BEAKER) (test vdxh=570) 3.4 meq/L 3.6-5.5 GLUCOSE-STAT [id number] 03:56:00* Test Item Value Reference Range Comments GLUCOSE RANDOM (BEAKER) (test vnwq=647) 144 mg/dL 70-110 HGB/HCT (H&H) - STAT [id number] 03:56:00* Test Item Value Reference Range Comments HEMOGLOBIN (BEAKER) (test wweg=497) 9.9 g/dL 12.0-15.0 HEMATOCRIT (BEAKER) (test fpos=961) 29.0 % 36.0-45.0 FIBRIN SOLUBLE [id number] 03:56:00* Test Item Value Reference Range Comments FIBRIN SOLUBLE MONOMER (BEAKER) (test xnza=3101) POS 1+ VANCOMYCIN LEVEL, [id number] 03:50:00* Test Item Value Reference Range Comments VANCOMYCIN RANDOM (BEAKER) (test cvwp=206) 20.4 ug/mL Reference Range: No NormalsBASIC METABOLIC [id number] 03:30:00* Test Item Value Reference Range Comments SODIUM (BEAKER) (test qoan=168) 152 meq/L 136-145 POTASSIUM (BEAKER) (test kiqo=319) 4.4 meq/L 3.5-5.1 CHLORIDE (BEAKER) (test uppw=727) 121 meq/L 98-107 CO2 (BEAKER) (test ibbi=637) 21 meq/L 22-29 BLOOD UREA NITROGEN (BEAKER) (test zgzg=154) 16 mg/dL 7-21 CREATININE (BEAKER) (test dkuu=834) 1.28 mg/dL 0.57-1.25 GLUCOSE RANDOM (BEAKER) (test dpkh=884) 153 mg/dL 70-105 CALCIUM (BEAKER) (test sjfp=710) 11.1 mg/dL 8.4-10.2 EGFR (BEAKER) (test dsbk=3739) 44 mL/min/1.73 sq m ESTIMATED GFR IS NOT ACCURATE CREATININE CLEARANCE IN PREDICTING GLOMERULAR FILTRATION RATE. ESTIMATED GFR IS NOT APPLICABLE FOR DIALYSIS PATIENTS. [id number] 03:28:00* Test Item Value Reference Range Comments MAGNESIUM (BEAKER) (test waqo=590) 1.6 mg/dL 1.6-2.6 HEPATIC FUNCTION [id number] 03:28:00* Test Item Value Reference Range Comments TOTAL PROTEIN (BEAKER) (test kqey=963) 3.4 gm/dL 6.0-8.3 ALBUMIN (BEAKER) (test wzay=0998) 2.3 g/dL 3.5-5.0 BILIRUBIN TOTAL (BEAKER) (test htbz=538) 0.7 mg/dL 0.2-1.2 BILIRUBIN DIRECT (BEAKER) (test faig=286) 0.4 mg/dL 0.1-0.5 ALKALINE PHOSPHATASE (BEAKER) (test yrag=658) 28 U/L 40-150 AST (SGOT) (BEAKER) (test xatg=818) 50 U/L 5-34 ALT (SGPT) (BEAKER) (test lxwz=873) 16 U/L 6-55 LACTATE DEHYDROGENASE (LDH)2018-02-01 03:28:00* Test Item Value Reference Range Comments LACTATE DEHYDROGENASE (BEAKER) (test beel=509) 243 U/L 125-220 POCT-GLUCOSE [id number] 03:18:00* Test Item Value Reference Range Comments POC-GLUCOSE METER (BEAKER) (test arei=3593) 136 mg/dL 70-110 TESTED AT [facility] [address] [facility] [address] LACTIC ACID, ARTERIAL, WHOLE [id number] 03:09:00* Test Item Value Reference Range Comments LACTATE BLOOD ARTERIAL (2) (SARAHAKER) (test acbq=5575) 7.0 mmol/L 0.5-2.2 Effective 03/10/2016: Units/Reference Range ChangeNew: 0.5-2.2 mmol/L Previous: 5 -20 mg/[id number] 03:04:00* Test Item Value Reference Range Comments PARTIAL THROMBOPLASTIN TIME (SARAHAKER) (test dllh=808) 104.8 seconds 22.5-36.0 [id number] 03:04:00* Test Item Value Reference Range Comments D-DIMER QUANTITATIVE (SARAHAKER) (test hexi=884) 2.05 MG/L FEU <0.50 Intended Use: The D-Dimer Assay can be used to aid in the diagnosis of Deep Vein Thrombosis (DVT) and Pulmonary Embolism Disease (PED).In patients with low pre- test probability, various studies concerning STA Liatest D-dimer test have repor emily that with a cutoff value of 0.50 MG/L FEU, the Negative Predictive Value (ELEVATED WORK PLATFORM OPERATOR V) regarding the exclusion of thrombosis is within 95-100% range.PROTHROMBIN TIME/[id number] 03:00:00* Test Item Value Reference Range Comments PROTIME (BEAKER) (test abdm=709) 19.9 seconds 11.7-14.7 INR (BEAKER) (test nzcy=539) 1.7 <=5.9 RECOMMENDED COUMADIN/WARFARIN INR THERAPY RANGESSTANDARD DOSE: 2.0 - 3.0 Inclu connie: PROPHYLAXIS for venous thrombosis, systemic embolization; TREATMENT for lupis ous thrombosis and/or pulmonary embolus.HIGH RISK: Target INR is 2.5-3.5 for pat ients with mechanical heart valves.[id number] 03:00:00* Test Item Value Reference Range Comments FIBRINOGEN LEVEL (BEAKER) (test ihfn=944) 240 mg/dl 225-434 CBC W/PLT COUNT & AUTO [id number] 02:55:00* Test Item Value Reference Range Comments WHITE BLOOD CELL COUNT (BEAKER) (test wnol=155) 5.9 K/ L 3.5-10.5 RED BLOOD CELL COUNT (BEAKER) (test qual=105) 3.35 M/ L 3.93-5.22 HEMOGLOBIN (BEAKER) (test tilb=449) 9.6 GM/DL 11.2-15.7 HEMATOCRIT (BEAKER) (test moep=447) 29.3 % 34.1-44.9 MEAN CORPUSCULAR VOLUME (BEAKER) (test ttak=189) 87.5 fL 79.4-94.8 MEAN CORPUSCULAR HEMOGLOBIN (BEAKER) (test zicl=096) 28.7 pg 25.6-32.2 MEAN CORPUSCULAR HEMOGLOBIN CONC (BEAKER) (test nwne=355) 32.8 GM/DL 32.2-35.5 RED CELL DISTRIBUTION WIDTH (BEAKER) (test igwk=446) 14.6 % 11.7-14.4 PLATELET COUNT (BEAKER) (test sada=512) 103 K/CU MM 150-450 MEAN PLATELET VOLUME (BEAKER) (test acqs=596) 10.3 fL 9.4-12.3 NUCLEATED RED BLOOD CELLS (BEAKER) (test rwvg=376) 0 /100 WBC 0-0 NEUTROPHILS RELATIVE PERCENT (BEAKER) (test gdar=996) 79 % LYMPHOCYTES RELATIVE PERCENT (BEAKER) (test hhuf=546) 12 % MONOCYTES RELATIVE PERCENT (BEAKER) (test elrs=713) 8 % EOSINOPHILS RELATIVE PERCENT (BEAKER) (test kxpv=894) 0 % BASOPHILS RELATIVE PERCENT (BEAKER) (test taib=989) 0 % NEUTROPHILS ABSOLUTE COUNT (BEAKER) (test vtnj=157) 4.68 K/ L 1.56-6.13 LYMPHOCYTES ABSOLUTE COUNT (BEAKER) (test zyvn=800) 0.71 K/ L 1.18-3.74 MONOCYTES ABSOLUTE COUNT (BEAKER) (test onxc=135) 0.50 K/ L 0.24-0.36 EOSINOPHILS ABSOLUTE COUNT (BEAKER) (test gnyg=054) 0.01 K/ L 0.04-0.36 BASOPHILS ABSOLUTE COUNT (BEAKER) (test zvyg=407) 0.02 K/ L 0.01-0.08 IMMATURE GRANULOCYTES-RELATIVE PERCENT (BEAKER) (test lltz=4314) 0 % 0-1 BLOOD GAS, [id number] 02:43:00* Test Item Value Reference Range Comments PH ARTERIAL (BEAKER) (test sbuw=919) 7.31 7.35-7.45 PCO2 ARTERIAL (BEAKER) (test ezij=595) 42 mmHg 35-45 PO2 ARTERIAL (BEAKER) (test moye=536) 416 mmHg 80-90 O2 SATURATION ARTERIAL (BEAKER) (test root=329) 99.8 % 96.0-97.0 HCO3 ARTERIAL (BEAKER) (test umvl=303) 21 mmol/L 21-29 BASE EXCESS ARTERIAL (BEAKER) (test vdld=320) -5.0 mmol/L -2.0-3.0 PATIENT TEMPERATURE (BEAKER) (test kpuu=8526) 36.2 C FIO2 (BEAKER) (test aiwi=9753) 40.0 % CALCIUM, [id number] 02:43:00* Test Item Value Reference Range Comments CALCIUM IONIZED (BEAKER) (test lqgs=405) 1.50 mmol/L 1.12-1.27 PH, BLOOD (BEAKER) (test pgic=6232) 7.30 OXYGEN SATURATION, [id number] 02:40:00* Test Item Value Reference Range Comments O2 SATURATION (MEASURED) (BEAKER) (test tbhc=2577) 82.9 % [id number] 01:59:00* Test Item Value Reference Range Comments PROTIME (BEAKER) (test ljbg=670) 17.5 seconds 11.7-14.7 INR (BEAKER) (test zvvd=991) 1.4 <=5.9 PARTIAL THROMBOPLASTIN TIME (BEAKER) (test ieup=542) 103.4 seconds 22.5-36.0 RECOMMENDED COUMADIN/WARFARIN INR THERAPY RANGESSTANDARD DOSE: 2.0 - 3.0 Inclu connie: PROPHYLAXIS for venous thrombosis, systemic embolization; TREATMENT for lupis ous thrombosis and/or pulmonary embolus.HIGH RISK: Target INR is 2.5-3.5 for pat ients with mechanical heart valves.[id number] 01:49:00* Test Item Value Reference Range Comments FIBRINOGEN LEVEL (BEAKER) (test dlmq=377) 291 mg/dl 225-434 PROTHROMBIN TIME/[id number] 01:44:00* Test Item Value Reference Range Comments PROTIME (BEAKER) (test ongn=444) 17.5 seconds 11.7-14.7 INR (BEAKER) (test mnsv=793) 1.4 <=5.9 RECOMMENDED COUMADIN/WARFARIN INR THERAPY RANGESSTANDARD DOSE: 2.0 - 3.0 Inclu connie: PROPHYLAXIS for venous thrombosis, systemic embolization; TREATMENT for lupis ous thrombosis and/or pulmonary embolus.HIGH RISK: Target INR is 2.5-3.5 for pat ients with mechanical heart valves.PLATELET [id number] 01:38:00* Test Item Value Reference Range Comments PLATELET COUNT (BEAKER) (test tdpf=023) 127 K/CU MM 150-450 BLOOD GAS, [id number] 01:29:00* Test Item Value Reference Range Comments PH ARTERIAL (BEAKER) (test kyqc=291) 7.31 7.35-7.45 PCO2 ARTERIAL (BEAKER) (test xhqz=705) 51 mmHg 35-45 PO2 ARTERIAL (BEAKER) (test vulo=033) 401 mmHg 80-90 O2 SATURATION ARTERIAL (BEAKER) (test otwa=037) 99.8 % 96.0-97.0 HCO3 ARTERIAL (BEAKER) (test xoki=149) 25 mmol/L 21-29 BASE EXCESS ARTERIAL (BEAKER) (test fxzm=803) -1.8 mmol/L -2.0-3.0 PATIENT TEMPERATURE (BEAKER) (test ckub=2783) 36.5 C FIO2 (BEAKER) (test sorj=4146) 100.0 % POTASSIUM-STAT [id number] 01:29:00* Test Item Value Reference Range Comments POTASSIUM (BEAKER) (test yzkp=920) 3.4 meq/L 3.6-5.5 GLUCOSE-STAT [id number] 01:29:00* Test Item Value Reference Range Comments GLUCOSE RANDOM (BEAKER) (test rkzh=867) 153 mg/dL 70-110 HGB/HCT (H&H) - STAT [id number] 01:29:00* Test Item Value Reference Range Comments HEMOGLOBIN (BEAKER) (test wwym=478) 11.5 g/dL 12.0-15.0 HEMATOCRIT (BEAKER) (test mrjp=073) 34.0 % 36.0-45.0 SODIUM NA-STAT [id number] 01:28:00* Test Item Value Reference Range Comments SODIUM (BEAKER) (test gztv=890) 148 meq/L 135-148 SODIUM NA-STAT [id number] 23:24:00* Test Item Value Reference Range Comments SODIUM (BEAKER) (test ctpp=143) 147 meq/L 135-148 BLOOD GAS, [id number] 23:24:00* Test Item Value Reference Range Comments PH ARTERIAL (BEAKER) (test cfql=795) 7.33 7.35-7.45 PCO2 ARTERIAL (BEAKER) (test rxqs=366) 46 mmHg 35-45 PO2 ARTERIAL (BEAKER) (test nueu=901) 422 mmHg 80-90 O2 SATURATION ARTERIAL (BEAKER) (test octs=831) 99.8 % 96.0-97.0 HCO3 ARTERIAL (BEAKER) (test efsb=913) 24 mmol/L 21-29 BASE EXCESS ARTERIAL (BEAKER) (test wpzx=435) -2.7 mmol/L -2.0-3.0 PATIENT TEMPERATURE (BEAKER) (test wmsy=1867) 36.4 C FIO2 (BEAKER) (test qole=9338) 40.0 % POTASSIUM-STAT [id number] 23:24:00* Test Item Value Reference Range Comments POTASSIUM (BEAKER) (test mdur=052) 2.8 meq/L 3.6-5.5 GLUCOSE-STAT [id number] 23:24:00* Test Item Value Reference Range Comments GLUCOSE RANDOM (BEAKER) (test jpby=933) 183 mg/dL 70-110 HGB/HCT (H&H) - STAT [id number] 23:24:00* Test Item Value Reference Range Comments HEMOGLOBIN (BEAKER) (test uezq=838) 12.0 g/dL 12.0-15.0 HEMATOCRIT (BEAKER) (test mqfp=157) 35.0 % 36.0-45.0 CALCIUM, [id number] 23:24:00* Test Item Value Reference Range Comments CALCIUM IONIZED (BEAKER) (test nres=911) 1.39 mmol/L 1.12-1.27 PH, BLOOD (BEAKER) (test zokv=7511) 7.32 BASIC METABOLIC [id number] 21:39:00* Test Item Value Reference Range Comments SODIUM (BEAKER) (test jrgn=808) 151 meq/L 136-145 POTASSIUM (BEAKER) (test mlun=211) 3.3 meq/L 3.5-5.1 CHLORIDE (BEAKER) (test qrmd=344) 113 meq/L 98-107 CO2 (BEAKER) (test jcyg=190) 23 meq/L 22-29 BLOOD UREA NITROGEN (BEAKER) (test szfn=025) 16 mg/dL 7-21 CREATININE (BEAKER) (test ogod=788) 1.23 mg/dL 0.57-1.25 GLUCOSE RANDOM (BEAKER) (test ekxl=115) 194 mg/dL 70-105 CALCIUM (BEAKER) (test xzkt=853) 11.4 mg/dL 8.4-10.2 EGFR (BEAKER) (test texj=1549) 46 mL/min/1.73 sq m ESTIMATED GFR IS NOT ACCURATE CREATININE CLEARANCE IN PREDICTING GLOMERULAR FILTRATION RATE. ESTIMATED GFR IS NOT APPLICABLE FOR DIALYSIS PATIENTS. [id number] 21:38:00* Test Item Value Reference Range Comments POTASSIUM (BEAKER) (test tqop=001) 3.3 meq/L 3.5-5.1 [id number] 21:38:00* Test Item Value Reference Range Comments GLUCOSE RANDOM (BEAKER) (test xkax=799) 194 mg/dL 70-105 LACTIC ACID, ARTERIAL, WHOLE [id number] 21:35:00* Test Item Value Reference Range Comments LACTATE BLOOD ARTERIAL (2) (BEAKER) (test wgom=2853) 8.2 mmol/L 0.5-2.2 Specimen slightly hemolyzed Effective 03/10/2016: Units/Reference Range ChangeNew: 0.5-2.2 mmol/L Previous: 5 -20 mg/[id number] 21:33:00* Test Item Value Reference Range Comments FIBRINOGEN LEVEL (BEAKER) (test rtwq=716) 297 mg/dl 225-434 [id number] 21:33:00* Test Item Value Reference Range Comments PARTIAL THROMBOPLASTIN TIME (BEAKER) (test fvyw=223) 51.1 seconds 22.5-36.0 PROTHROMBIN TIME/[id number] 21:32:00* Test Item Value Reference Range Comments PROTIME (BEAKER) (test pcaz=729) 15.5 seconds 11.7-14.7 INR (BEAKER) (test mezt=618) 1.2 <=5.9 RECOMMENDED COUMADIN/WARFARIN INR THERAPY RANGESSTANDARD DOSE: 2.0 - 3.0 Inclu connie: PROPHYLAXIS for venous thrombosis, systemic embolization; TREATMENT for lupis ous thrombosis and/or pulmonary embolus.HIGH RISK: Target INR is 2.5-3.5 for pat ients with mechanical heart valves.RAD, CHEST, 1 VIEW, NON [id number] 21:31:00Reason for exam:->ECMO/BleedingShould this be performed at the bedside?- >YesIs the patient ?->UnknownFINAL REPORT RAD, CHEST, 1 VIEW, NON DEPT INDICATION: ECMO/Bleeding COMPARISON: Four hours prior FINDINGS: Portable frontal view of the chest. IMPRESSION: Support Lines: Stable. Lungs and pleura: Appearance of the air spaces and left effusion are unchanged from the prior examination. No new or expanding right effusion. No pneumothorax.Heart and mediastinum: Stable contours. Stable surgical changes.Additional findings: None. Signed: JR Lucas Robert MDReport Verified Date/Time: 01/31/2018 21:31:57 Reading Location: [address] Body Reading Room D GAS, [id number] 21:16:00* Test Item Value Reference Range Comments PH ARTERIAL (BEAKER) (test jgcn=471) 7.33 7.35-7.45 PCO2 ARTERIAL (BEAKER) (test dtia=830) 50 mmHg 35-45 PO2 ARTERIAL (BEAKER) (test wpzh=808) 416 mmHg 80-90 O2 SATURATION ARTERIAL (BEAKER) (test bpnh=773) 99.8 % 96.0-97.0 HCO3 ARTERIAL (BEAKER) (test qfmd=828) 26 mmol/L 21-29 BASE EXCESS ARTERIAL (BEAKER) (test svvj=378) -0.7 mmol/L -2.0-3.0 PATIENT TEMPERATURE (BEAKER) (test ysxr=9308) 36.1 C FIO2 (BEAKER) (test ignc=7047) 100.0 % PLATELET [id number] 21:16:00* Test Item Value Reference Range Comments PLATELET COUNT (BEAKER) (test kelg=555) 133 K/CU MM 150-450 HEMOGLOBIN AND [id number] 21:16:00* Test Item Value Reference Range Comments HEMOGLOBIN (BEAKER) (test btqp=957) 13.1 GM/DL 11.2-15.7 HEMATOCRIT (BEAKER) (test ivex=291) 38.6 % 34.1-44.9 [id number] 19:41:00* Test Item Value Reference Range Comments FIBRINOGEN LEVEL (BEAKER) (test pnmv=828) 223 mg/dl 225-434 [id number] 19:41:00* Test Item Value Reference Range Comments PARTIAL THROMBOPLASTIN TIME (BEAKER) (test xteq=115) 48.8 seconds 22.5-36.0 PROTHROMBIN TIME/[id number] 19:40:00* Test Item Value Reference Range Comments PROTIME (BEAKER) (test elqk=924) 16.5 seconds 11.7-14.7 INR (BEAKER) (test rfve=378) 1.3 <=5.9 RECOMMENDED COUMADIN/WARFARIN INR THERAPY RANGESSTANDARD DOSE: 2.0 - 3.0 Inclu connie: PROPHYLAXIS for venous thrombosis, systemic embolization; TREATMENT for lupis ous thrombosis and/or pulmonary embolus.HIGH RISK: Target INR is 2.5-3.5 for pat ients with mechanical heart valves.BASIC METABOLIC [id number] 19:34:00* Test Item Value Reference Range Comments SODIUM (BEAKER) (test oooh=279) 156 meq/L 136-145 POTASSIUM (BEAKER) (test vkpl=254) 3.8 meq/L 3.5-5.1 CHLORIDE (BEAKER) (test yaoe=554) 112 meq/L 98-107 CO2 (BEAKER) (test bcjj=755) 26 meq/L 22-29 BLOOD UREA NITROGEN (BEAKER) (test besz=577) 14 mg/dL 7-21 CREATININE (BEAKER) (test akyl=262) 1.05 mg/dL 0.57-1.25 GLUCOSE RANDOM (BEAKER) (test ratk=369) 225 mg/dL 70-105 CALCIUM (BEAKER) (test wcko=811) 12.9 mg/dL 8.4-10.2 EGFR (BEAKER) (test qnhv=2235) 55 mL/min/1.73 sq m ESTIMATED GFR IS NOT ACCURATE CREATININE CLEARANCE IN PREDICTING GLOMERULAR FILTRATION RATE. ESTIMATED GFR IS NOT APPLICABLE FOR DIALYSIS PATIENTS. LACTIC ACID, ARTERIAL, WHOLE [id number] 19:32:00* Test Item Value Reference Range Comments LACTATE BLOOD ARTERIAL (2) (BEAKER) (test qzcm=6766) 7.1 mmol/L 0.5-2.2 Effective 03/10/2016: Units/Reference Range ChangeNew: 0.5-2.2 mmol/L Previous: 5 -20 mg/dLPLATELET [id number] 19:18:00* Test Item Value Reference Range Comments PLATELET COUNT (BEAKER) (test ylul=895) 149 K/CU MM 150-450 BLOOD GAS, [id number] 19:14:00* Test Item Value Reference Range Comments PH ARTERIAL (BEAKER) (test dveb=580) 7.31 7.35-7.45 PCO2 ARTERIAL (BEAKER) (test dwoj=095) 41 mmHg 35-45 PO2 ARTERIAL (BEAKER) (test azhb=988) 296 mmHg 80-90 O2 SATURATION ARTERIAL (BEAKER) (test gsaz=819) 99.6 % 96.0-97.0 HCO3 ARTERIAL (BEAKER) (test jtmu=387) 20 mmol/L 21-29 BASE EXCESS ARTERIAL (BEAKER) (test fvhh=435) -5.8 mmol/L -2.0-3.0 PATIENT TEMPERATURE (BEAKER) (test olxr=7887) 36.1 C FIO2 (BEAKER) (test zbow=7781) 50.0 % GLUCOSE-STAT [id number] 19:14:00* Test Item Value Reference Range Comments GLUCOSE RANDOM (BEAKER) (test gzvn=996) 205 mg/dL 70-110 HGB/HCT (H&H) - STAT [id number] 19:14:00* Test Item Value Reference Range Comments HEMOGLOBIN (BEAKER) (test mbiy=315) 11.5 g/dL 12.0-15.0 HEMATOCRIT (BEAKER) (test yost=525) 34.0 % 36.0-45.0 CALCIUM, [id number] 19:14:00* Test Item Value Reference Range Comments CALCIUM IONIZED (BEAKER) (test qooy=832) 1.56 mmol/L 1.12-1.27 PH, BLOOD (BEAKER) (test abll=8147) 7.30 SODIUM NA-STAT [id number] 19:13:00* Test Item Value Reference Range Comments SODIUM (BEAKER) (test umto=700) 145 meq/L 135-148 POTASSIUM-STAT [id number] 19:13:00* Test Item Value Reference Range Comments POTASSIUM (BEAKER) (test kwrw=393) 3.9 meq/L 3.6-5.5 OXYGEN SATURATION, [id number] 19:13:00* Test Item Value Reference Range Comments O2 SATURATION (MEASURED) (BEAKER) (test jewg=1206) 86.9 % HEPARIN ASSAY - [id number] 18:49:00* Test Item Value Reference Range Comments UNFRACTIONATED HEPARIN-ANTI 10A (BEAKER) (test phsi=5994) < u/ml 0.30-0.70 Recommendations for Monitoring Unfractionated Heparin Therapeutic Range: 0.3-0. 7 u/mL with continuous IV infusionTHROMBOELASTOGRAPH (TEG)2018-01-31 18:21:00* Test Item Value Reference Range Comments TEG ACTIVATED CLOTTING TIME (BEAKER) (test wstl=5281) 6.3 minutes 4.0-7.0 TEG FIBRINOGEN ACTIVITY (BEAKER) (test rtiz=7807) 59.6 degrees 61.0-73.0 TEG PLT. AGGREGATION (BEAKER) (test hmyl=1903) 55.5 MM 55.0-65.0 TEG FIBRINOLYSIS (BEAKER) (test crxn=0866) 0.0 % 0.0-5.0 TGH ACTIVATED CLOTTING TIME (BEAKER) (test pfmq=3338) 6.6 minutes 4.0-7.0 TGH FIBRINOGEN ACTIVITY (BEAKER) (test bdar=7885) 60.9 degrees 61.0-73.0 TGH PLT. AGGREGATION (BEAKER) (test lxrq=4035) 51.1 MM 55.0-65.0 TGH FIBRINOLYSIS (BEAKER) (test orxj=7474) 0.0 % 0.0-5.0 FIBRIN SOLUBLE [id number] 18:11:00* Test Item Value Reference Range Comments FIBRIN SOLUBLE MONOMER (BEAKER) (test uupe=9766) POS 2+ [id number] 18:05:00* Test Item Value Reference Range Comments PARTIAL THROMBOPLASTIN TIME (BEAKER) (test pqcu=186) 75.1 seconds 22.5-36.0 PROTHROMBIN [id number] 18:04:00* Test Item Value Reference Range Comments PROTIME (BEAKER) (test tqpe=931) 19.2 seconds 11.7-14.7 INR (BEAKER) (test jsuk=457) 1.6 <=5.9 RECOMMENDED COUMADIN/WARFARIN INR THERAPY RANGESSTANDARD DOSE: 2.0 - 3.0 Inclu connie: PROPHYLAXIS for venous thrombosis, systemic embolization; TREATMENT for lupis ous thrombosis and/or pulmonary embolus.HIGH RISK: Target INR is 2.5-3.5 for pat ients with mechanical heart valves.[id number] 18:04:00* Test Item Value Reference Range Comments FIBRINOGEN LEVEL (BEAKER) (test fhwf=603) 180 mg/dl 225-434 [id number] 17:53:00* Test Item Value Reference Range Comments D-DIMER QUANTITATIVE (BEAKER) (test naiv=509) 4.28 MG/L FEU <0.50 Intended Use: The D-Dimer Assay can be used to aid in the diagnosis of Deep Vein Thrombosis (DVT) and Pulmonary Embolism Disease (PED).In patients with low pre- test probability, various studies concerning STA Liatest D-dimer test have repor emily that with a cutoff value of 0.50 MG/L FEU, the Negative Predictive Value (ELEVATED WORK PLATFORM OPERATOR V) regarding the exclusion of thrombosis is within 95-100% range.LACTIC ACID, ARTERIAL, WHOLE [id number] 17:30:00* Test Item Value Reference Range Comments LACTATE BLOOD ARTERIAL (2) (BEAKER) (test fryc=9899) 7.2 mmol/L 0.5-2.2 Specimen slightly hemolyzed Effective 03/10/2016: Units/Reference Range ChangeNew: 0.5-2.2 mmol/L Previous: 5 -20 mg/dLLACTATE DEHYDROGENASE (LDH)2018-01-31 17:30:00* Test Item Value Reference Range Comments LACTATE DEHYDROGENASE (BEAKER) (test awij=542) 211 U/L 125-220 Specimen slightly hemolyzed HEPATIC FUNCTION [id number] 17:30:00* Test Item Value Reference Range Comments TOTAL PROTEIN (BEAKER) (test argr=087) 3.3 gm/dL 6.0-8.3 Specimen slightly hemolyzed ALBUMIN (BEAKER) (test tblj=9972) 2.2 g/dL 3.5-5.0 Specimen slightly hemolyzed BILIRUBIN TOTAL (BEAKER) (test xpwr=576) 1.0 mg/dL 0.2-1.2 Specimen slightly hemolyzed BILIRUBIN DIRECT (BEAKER) (test toet=887) 0.4 mg/dL 0.1-0.5 Specimen slightly hemolyzed ALKALINE PHOSPHATASE (BEAKER) (test lszx=116) 26 U/L 40-150 AST (SGOT) (BEAKER) (test xjol=611) 19 U/L 5-34 Specimen slightly hemolyzed ALT (SGPT) (BEAKER) (test yrrr=161) 10 U/L 6-55 Specimen slightly hemolyzed BASIC METABOLIC [id number] 17:30:00* Test Item Value Reference Range Comments SODIUM (BEAKER) (test wkei=506) 149 meq/L 136-145 POTASSIUM (BEAKER) (test bcnd=315) 3.8 meq/L 3.5-5.1 Specimen slightly hemolyzed CHLORIDE (BEAKER) (test cgxa=199) 117 meq/L 98-107 CO2 (BEAKER) (test qzyt=347) 21 meq/L 22-29 BLOOD UREA NITROGEN (BEAKER) (test lgdz=660) 15 mg/dL 7-21 CREATININE (BEAKER) (test vxht=982) 0.98 mg/dL 0.57-1.25 Specimen slightly hemolyzed GLUCOSE RANDOM (BEAKER) (test curk=880) 204 mg/dL 70-105 CALCIUM (BEAKER) (test qzbs=477) 11.2 mg/dL 8.4-10.2 EGFR (BEAKER) (test fdcr=1030) 60 mL/min/1.73 sq m ESTIMATED GFR IS NOT ACCURATE CREATININE CLEARANCE IN PREDICTING GLOMERULAR FILTRATION RATE. ESTIMATED GFR IS NOT APPLICABLE FOR DIALYSIS PATIENTS. [id number] 17:25:00* Test Item Value Reference Range Comments ACTIVATED CLOTTING TIME (BEAKER) (test cime=730) 158 sec TESTED AT [facility] [address] [facility] [address] [id number] 17:25:00* Test Item Value Reference Range Comments ACTIVATED CLOTTING TIME (BEAKER) (test oxhq=717) 527 sec TESTED AT [facility] [address] [facility] [address] CBC W/PLT COUNT & AUTO [id number] 17:23:00* Test Item Value Reference Range Comments WHITE BLOOD CELL COUNT (BEAKER) (test pdok=207) 4.5 K/ L 3.5-10.5 RED BLOOD CELL COUNT (BEAKER) (test eais=090) 2.94 M/ L 3.93-5.22 HEMOGLOBIN (BEAKER) (test ayxz=859) 8.6 GM/DL 11.2-15.7 HEMATOCRIT (BEAKER) (test sour=238) 25.5 % 34.1-44.9 MEAN CORPUSCULAR VOLUME (BEAKER) (test egwa=477) 86.7 fL 79.4-94.8 MEAN CORPUSCULAR HEMOGLOBIN (BEAKER) (test xzbf=942) 29.3 pg 25.6-32.2 MEAN CORPUSCULAR HEMOGLOBIN CONC (BEAKER) (test uqee=513) 33.7 GM/DL 32.2-35.5 RED CELL DISTRIBUTION WIDTH (BEAKER) (test oryf=831) 13.5 % 11.7-14.4 PLATELET COUNT (BEAKER) (test pkvr=029) 99 K/CU MM 150-450 MEAN PLATELET VOLUME (BEAKER) (test dqyx=774) 9.9 fL 9.4-12.3 NUCLEATED RED BLOOD CELLS (BEAKER) (test wkft=772) 0 /100 WBC 0-0 NEUTROPHILS RELATIVE PERCENT (BEAKER) (test llad=019) 68 % LYMPHOCYTES RELATIVE PERCENT (BEAKER) (test hxfx=961) 22 % MONOCYTES RELATIVE PERCENT (BEAKER) (test ccfp=353) 9 % EOSINOPHILS RELATIVE PERCENT (BEAKER) (test cfrz=417) 1 % BASOPHILS RELATIVE PERCENT (BEAKER) (test mtpk=725) 0 % NEUTROPHILS ABSOLUTE COUNT (BEAKER) (test bwjy=436) 3.07 K/ L 1.56-6.13 LYMPHOCYTES ABSOLUTE COUNT (BEAKER) (test zpqg=902) 0.99 K/ L 1.18-3.74 MONOCYTES ABSOLUTE COUNT (BEAKER) (test uwtx=906) 0.39 K/ L 0.24-0.36 EOSINOPHILS ABSOLUTE COUNT (BEAKER) (test uybk=718) 0.05 K/ L 0.04-0.36 BASOPHILS ABSOLUTE COUNT (BEAKER) (test iooq=506) 0.01 K/ L 0.01-0.08 IMMATURE GRANULOCYTES-RELATIVE PERCENT (BEAKER) (test gilq=6774) 0 % 0-1 RAD, CHEST, 1 VIEW, NON [id number] 17:14:00Post-intubationReason for exam:-> ecmo, s/p aortic dissection repairShould this be performed at the bedside?->Yes FINAL REPORT Portable chest. HISTORY: ECMO, status post a ortic dissection repair. COMPARISON STUDY: January 30, 2018. Findings: The cardiac silhouette is enlarged. The patient is status post sternotomy with endotracheal tube, nasogastric tube, mediastinal drain, bilateral chest tubes and right-sided jugular line in place. Epicardial pacer wires are seen. There is pulmonary lupis ous congestion and increased interstitial and patchy airspace opacities, more so on the left side with blunting of the left costophrenic angle. No pneumothorax is seen. IMPRESSION: Post surgical changes as detailed above. Signed: Emiliano Colby MDReport Verified Date/Time: 01/31/2018 17:14:03 Reading Location: [place] [id number] Consult Reading Room IUM, [id number] 16:57:00* Test Item Value Reference Range Comments CALCIUM IONIZED (BEAKER) (test gomq=284) 1.34 mmol/L 1.12-1.27 PH, BLOOD (BEAKER) (test puhh=5554) 7.46 HGB/HCT (H&H) - STAT [id number] 16:57:00* Test Item Value Reference Range Comments HEMOGLOBIN (BEAKER) (test timg=857) 9.5 GM/DL 12.0-15.0 HEMATOCRIT (BEAKER) (test vetr=342) 28.0 % 36.0-45.0 OXYGEN SATURATION, [id number] 16:57:00* Test Item Value Reference Range Comments O2 SATURATION (MEASURED) (BEAKER) (test unhx=4525) 68.2 % BLOOD GAS, [id number] 16:56:00* Test Item Value Reference Range Comments PH ARTERIAL (BEAKER) (test zbxn=429) 7.46 7.35-7.45 PCO2 ARTERIAL (BEAKER) (test pbfm=843) 30 mmHg 35-45 PO2 ARTERIAL (BEAKER) (test arlw=306) 374 mmHg 80-90 O2 SATURATION ARTERIAL (BEAKER) (test ptxr=403) 99.8 % 96.0-97.0 HCO3 ARTERIAL (BEAKER) (test bhcj=541) 21 mmol/L 21-29 BASE EXCESS ARTERIAL (BEAKER) (test nvri=301) -2.7 mmol/L -2.0-3.0 PATIENT TEMPERATURE (BEAKER) (test wzmr=9165) 34.4 C FIO2 (BEAKER) (test jkjy=3672) 100.0 % POTASSIUM-STAT [id number] 16:56:00* Test Item Value Reference Range Comments POTASSIUM (BEAKER) (test pyxv=889) 3.4 meq/L 3.6-5.5 GLUCOSE-STAT [id number] 16:56:00* Test Item Value Reference Range Comments GLUCOSE RANDOM (BEAKER) (test kyji=301) 184 mg/dL 70-110 SODIUM NA-STAT [id number] 16:55:00* Test Item Value Reference Range Comments SODIUM (BEAKER) (test yxxa=420) 143 meq/L 135-148 PLATELET AGGREGATION: FUNCTION [id number] 16:37:00* Test Item Value Reference Range Comments WEAK ADP RESULT(BEAKER) (test jgsi=5654) 100 % 60-91 PLATELET FUNCTION SCREEN INTERP (BEAKER) (test qqog=0588) 60-100% indicates normal platelet function [id number] (BEAKER) (test utvr=5134) Rizwan Starr MD (electronic signature) PLATELET COUNT AGG (BEAKER) (test ulot=5132) 214 K/CU MM 150-450 for patients on clopidogrel in past two weeksPLATELET AGGREGATION: FUNCTION [id number] 16:36:00* Test Item Value Reference Range Comments WEAK ADP RESULT(BEAKER) (test crkx=9205) 64 % 60-91 PLATELET FUNCTION SCREEN INTERP (BEAKER) (test oyok=9142) 60-100% indicates normal platelet function [id number] (BEAKER) (test ahnd=8912) Rizwan Starr MD (electronic signature) PLATELET COUNT AGG (BEAKER) (test zxna=3425) 186 K/CU MM 150-450 CALCIUM, [id number] 16:04:00* Test Item Value Reference Range Comments CALCIUM IONIZED (BEAKER) (test ielp=542) 1.17 mmol/L 1.12-1.27 PH, BLOOD (BEAKER) (test nbol=2805) 7.42 BLOOD GAS, [id number] 16:04:00* Test Item Value Reference Range Comments PH ARTERIAL (BEAKER) (test xois=617) 7.43 7.35-7.45 PCO2 ARTERIAL (BEAKER) (test dzvv=752) 33 mmHg 35-45 PO2 ARTERIAL (BEAKER) (test qpkq=745) 369 mmHg 80-90 O2 SATURATION ARTERIAL (BEAKER) (test fabi=292) 99.8 % 96.0-97.0 HCO3 ARTERIAL (BEAKER) (test hjtn=605) 21 mmol/L 21-29 BASE EXCESS ARTERIAL (BEAKER) (test lfoz=003) -2.9 mmol/L -2.0-3.0 PATIENT TEMPERATURE (BEAKER) (test cmui=0292) 36.5 C FIO2 (BEAKER) (test vbfb=1407) 100.0 % POTASSIUM-STAT [id number] 16:04:00* Test Item Value Reference Range Comments POTASSIUM (BEAKER) (test xysc=983) 3.3 meq/L 3.6-5.5 GLUCOSE-STAT [id number] 16:04:00* Test Item Value Reference Range Comments GLUCOSE RANDOM (BEAKER) (test ptxv=440) 193 mg/dL 70-110 HGB/HCT (H&H) - STAT [id number] 16:04:00* Test Item Value Reference Range Comments HEMOGLOBIN (BEAKER) (test mzya=208) 8.2 g/dL 12.0-15.0 HEMATOCRIT (BEAKER) (test biex=815) 24.0 % 36.0-45.0 SODIUM NA-STAT [id number] 16:01:00* Test Item Value Reference Range Comments SODIUM (BEAKER) (test pdfg=279) 144 meq/L 135-148 THROMBOELASTOGRAPH (TEG)2018-01-31 15:26:00* Test Item Value Reference Range Comments TEG ACTIVATED CLOTTING TIME (BEAKER) (test ifcb=8219) 6.7 minutes 4.0-7.0 TEG FIBRINOGEN ACTIVITY (BEAKER) (test vbcu=4867) 72.0 degrees 61.0-73.0 TEG PLT. AGGREGATION (BEAKER) (test mwbx=2364) 60.3 MM 55.0-65.0 TGH ACTIVATED CLOTTING TIME (BEAKER) (test fdte=7009) 6.4 minutes 4.0-7.0 TGH FIBRINOGEN ACTIVITY (BEAKER) (test tndj=6208) 70.9 degrees 61.0-73.0 TGH PLT. AGGREGATION (BEAKER) (test skym=2113) 60.2 MM 55.0-65.0 SODIUM NA-STAT [id number] 14:45:00* Test Item Value Reference Range Comments SODIUM (BEAKER) (test heat=412) 144 meq/L 135-148 POTASSIUM-STAT [id number] 14:45:00* Test Item Value Reference Range Comments POTASSIUM (BEAKER) (test qiai=884) 4.7 meq/L 3.6-5.5 CALCIUM, [id number] 14:45:00* Test Item Value Reference Range Comments CALCIUM IONIZED (BEAKER) (test ifqd=643) 1.17 mmol/L 1.12-1.27 PH, BLOOD (BEAKER) (test lxid=2605) 7.44 BLOOD GAS, [id number] 14:45:00* Test Item Value Reference Range Comments PH ARTERIAL (BEAKER) (test jvhd=044) 7.44 7.35-7.45 PCO2 ARTERIAL (BEAKER) (test weja=424) 36 mmHg 35-45 PO2 ARTERIAL (BEAKER) (test lire=433) 368 mmHg 80-90 O2 SATURATION ARTERIAL (BEAKER) (test urnq=221) 99.8 % 96.0-97.0 HCO3 ARTERIAL (BEAKER) (test uily=050) 24 mmol/L 21-29 BASE EXCESS ARTERIAL (BEAKER) (test fjyr=952) 0.0 mmol/L -2.0-3.0 PATIENT TEMPERATURE (BEAKER) (test wwqj=9224) 36.6 C FIO2 (BEAKER) (test ubeb=0837) 100.0 % GLUCOSE-STAT [id number] 14:45:00* Test Item Value Reference Range Comments GLUCOSE RANDOM (BEAKER) (test chxe=172) 210 mg/dL 70-110 HGB/HCT (H&H) - STAT [id number] 14:45:00* Test Item Value Reference Range Comments HEMOGLOBIN (BEAKER) (test bcqz=381) 9.3 g/dL 12.0-15.0 HEMATOCRIT (BEAKER) (test dyqe=560) 27.0 % 36.0-45.0 [id number] 14:31:00* Test Item Value Reference Range Comments PARTIAL THROMBOPLASTIN TIME (BEAKER) (test egnk=331) 94.2 seconds 22.5-36.0 [id number] 14:30:00* Test Item Value Reference Range Comments FIBRINOGEN LEVEL (BEAKER) (test pipf=015) 185 mg/dl 225-434 PROTHROMBIN TIME/[id number] 14:29:00* Test Item Value Reference Range Comments PROTIME (BEAKER) (test qseo=897) 16.1 seconds 11.7-14.7 INR (BEAKER) (test pdcx=898) 1.3 <=5.9 RECOMMENDED COUMADIN/WARFARIN INR THERAPY RANGESSTANDARD DOSE: 2.0 - 3.0 Inclu connie: PROPHYLAXIS for venous thrombosis, systemic embolization; TREATMENT for lupis ous thrombosis and/or pulmonary embolus.HIGH RISK: Target INR is 2.5-3.5 for pat ients with mechanical heart valves.CALCIUM, [id number] 14:26:00* Test Item Value Reference Range Comments CALCIUM IONIZED (BEAKER) (test labb=356) 1.10 mmol/L 1.12-1.27 PH, BLOOD (BEAKER) (test xzuz=1506) 7.38 BLOOD GAS, [id number] 14:21:00* Test Item Value Reference Range Comments PH ARTERIAL (BEAKER) (test qvab=302) 7.38 7.35-7.45 PCO2 ARTERIAL (BEAKER) (test xmvq=435) 34 mmHg 35-45 PO2 ARTERIAL (BEAKER) (test gzsl=101) 363 mmHg 80-90 O2 SATURATION ARTERIAL (BEAKER) (test hbca=997) 99.8 % 96.0-97.0 HCO3 ARTERIAL (BEAKER) (test enaz=132) 19 mmol/L 21-29 BASE EXCESS ARTERIAL (BEAKER) (test avav=632) -5.1 mmol/L -2.0-3.0 PATIENT TEMPERATURE (BEAKER) (test dgjs=6381) 37.0 C FIO2 (BEAKER) (test bqxx=0199) 100.0 % POTASSIUM-STAT [id number] 14:21:00* Test Item Value Reference Range Comments POTASSIUM (BEAKER) (test dsyu=959) 3.1 meq/L 3.6-5.5 GLUCOSE-STAT [id number] 14:21:00* Test Item Value Reference Range Comments GLUCOSE RANDOM (BEAKER) (test uevl=999) 233 mg/dL 70-110 HGB/HCT (H&H) - STAT [id number] 14:21:00* Test Item Value Reference Range Comments HEMOGLOBIN (BEAKER) (test tcjl=069) 10.2 g/dL 12.0-15.0 HEMATOCRIT (BEAKER) (test rtsu=549) 30.0 % 36.0-45.0 PLATELET [id number] 14:21:00* Test Item Value Reference Range Comments PLATELET COUNT (BEAKER) (test kupw=740) 238 K/CU MM 150-450 SODIUM NA-STAT [id number] 14:17:00* Test Item Value Reference Range Comments SODIUM (BEAKER) (test mvvu=761) 141 meq/L 135-148 THROMBOELASTOGRAPH (TEG)2018-01-31 14:15:00* Test Item Value Reference Range Comments TEG ACTIVATED CLOTTING TIME (BEAKER) (test gvrj=4901) 9.3 minutes 4.0-7.0 TEG FIBRINOGEN ACTIVITY (BEAKER) (test dixl=8394) 20.5 degrees 61.0-73.0 TEG PLT. AGGREGATION (BEAKER) (test wrkm=7679) 19.6 MM 55.0-65.0 TGH ACTIVATED CLOTTING TIME (BEAKER) (test mzzg=7624) 8.8 minutes 4.0-7.0 TGH FIBRINOGEN ACTIVITY (BEAKER) (test dpaj=2577) 30.6 degrees 61.0-73.0 TGH PLT. AGGREGATION (BEAKER) (test vtpv=9449) 22.0 MM 55.0-65.0 CALCIUM, [id number] 13:40:00* Test Item Value Reference Range Comments CALCIUM IONIZED (BEAKER) (test ikwb=776) 2.66 mmol/L 1.12-1.27 PH, BLOOD (BEAKER) (test jurs=9324) 7.45 BLOOD GAS, [id number] 13:40:00* Test Item Value Reference Range Comments PH ARTERIAL (BEAKER) (test hqal=939) 7.45 7.35-7.45 PCO2 ARTERIAL (BEAKER) (test nsvt=871) 32 mmHg 35-45 PO2 ARTERIAL (BEAKER) (test achd=295) 71 mmHg 80-90 O2 SATURATION ARTERIAL (BEAKER) (test jkzd=497) 95.8 % 96.0-97.0 HCO3 ARTERIAL (BEAKER) (test vogu=613) 22 mmol/L 21-29 BASE EXCESS ARTERIAL (BEAKER) (test afgf=825) -1.9 mmol/L -2.0-3.0 PATIENT TEMPERATURE (BEAKER) (test egku=0062) 35.9 C FIO2 (BEAKER) (test kdei=2280) 100.0 % POTASSIUM-STAT [id number] 13:40:00* Test Item Value Reference Range Comments POTASSIUM (BEAKER) (test nize=378) 2.8 meq/L 3.6-5.5 GLUCOSE-STAT [id number] 13:40:00* Test Item Value Reference Range Comments GLUCOSE RANDOM (BEAKER) (test rhtd=025) 221 mg/dL 70-110 HGB/HCT (H&H) - STAT [id number] 13:40:00* Test Item Value Reference Range Comments HEMOGLOBIN (BEAKER) (test remm=128) 8.2 g/dL 12.0-15.0 HEMATOCRIT (BEAKER) (test mous=748) 24.0 % 36.0-45.0 SODIUM NA-STAT [id number] 13:38:00* Test Item Value Reference Range Comments SODIUM (BEAKER) (test wpbe=186) 144 meq/L 135-148 [id number] 13:32:00* Test Item Value Reference Range Comments FIBRINOGEN LEVEL (BEAKER) (test aimb=633) < mg/dl 225-434 CALCIUM, [id number] 13:20:00* Test Item Value Reference Range Comments CALCIUM IONIZED (BEAKER) (test xqil=539) 0.78 mmol/L 1.12-1.27 PH, BLOOD (BEAKER) (test ziit=5915) 7.52 BLOOD GAS, [id number] 13:20:00* Test Item Value Reference Range Comments PH ARTERIAL (BEAKER) (test jxwg=267) 7.52 7.35-7.45 PCO2 ARTERIAL (BEAKER) (test kvtw=982) 29 mmHg 35-45 PO2 ARTERIAL (BEAKER) (test qcfv=384) 35 mmHg 80-90 O2 SATURATION ARTERIAL (BEAKER) (test dszm=520) 78.6 % 96.0-97.0 HCO3 ARTERIAL (BEAKER) (test ujmk=093) 24 mmol/L 21-29 BASE EXCESS ARTERIAL (BEAKER) (test nuzn=945) 0.8 mmol/L -2.0-3.0 PATIENT TEMPERATURE (BEAKER) (test ddnh=8413) 35.6 C FIO2 (BEAKER) (test vmxd=9360) 100.0 % SODIUM NA-STAT [id number] 13:20:00* Test Item Value Reference Range Comments SODIUM (BEAKER) (test jtjn=703) 144 meq/L 135-148 POTASSIUM-STAT [id number] 13:20:00* Test Item Value Reference Range Comments POTASSIUM (BEAKER) (test yxpc=998) 3.1 meq/L 3.6-5.5 GLUCOSE-STAT [id number] 13:20:00* Test Item Value Reference Range Comments GLUCOSE RANDOM (BEAKER) (test gefa=113) 249 mg/dL 70-110 HGB/HCT (H&H) - STAT [id number] 13:20:00* Test Item Value Reference Range Comments HEMOGLOBIN (BEAKER) (test okzr=060) 7.0 g/dL 12.0-15.0 HEMATOCRIT (BEAKER) (test bjyu=769) 21.0 % 36.0-45.0 [id number] 13:18:00* Test Item Value Reference Range Comments PARTIAL THROMBOPLASTIN TIME (BEAKER) (test bmnp=672) 117.3 seconds 22.5-36.0 PROTHROMBIN TIME/[id number] 13:14:00* Test Item Value Reference Range Comments PROTIME (BEAKER) (test kbku=138) 37.9 seconds 11.7-14.7 INR (BEAKER) (test roaz=996) 3.9 <=5.9 RECOMMENDED COUMADIN/WARFARIN INR THERAPY RANGESSTANDARD DOSE: 2.0 - 3.0 Inclu connie: PROPHYLAXIS for venous thrombosis, systemic embolization; TREATMENT for lupis ous thrombosis and/or pulmonary embolus.HIGH RISK: Target INR is 2.5-3.5 for pat ients with mechanical heart valves.THROMBOELASTOGRAPH (TEG)[id number] 13:11:00* Test Item Value Reference Range Comments TEG ACTIVATED CLOTTING TIME (BEAKER) (test rlxq=4852) 106.8 minutes 4.0-7.0 NO CLOT DETECTED TEG FIBRINOGEN ACTIVITY (BEAKER) (test uwzm=7663) degrees 61.0-73.0 NO CLOT DETECTED TEG PLT. AGGREGATION (BEAKER) (test syqd=4146) MM 55.0-65.0 NO CLOT DETECTED TEG FIBRINOLYSIS (BEAKER) (test zgyx=4436) % 0.0-5.0 NO CLOT DETECTED TGH ACTIVATED CLOTTING TIME (BEAKER) (test szpe=7433) 5.2 minutes 4.0-7.0 TGH FIBRINOGEN ACTIVITY (BEAKER) (test rewn=4847) 57.5 degrees 61.0-73.0 TGH PLT. AGGREGATION (BEAKER) (test bhnz=0796) 40.5 MM 55.0-65.0 PLATELET [id number] 13:04:00* Test Item Value Reference Range Comments PLATELET COUNT (BEAKER) (test ulgi=969) 17 K/CU MM 150-450 CALCIUM, [id number] 12:53:00* Test Item Value Reference Range Comments CALCIUM IONIZED (BEAKER) (test skjp=858) 0.81 mmol/L 1.12-1.27 PH, BLOOD (BEAKER) (test szzt=9302) 7.45 SODIUM NA-STAT [id number] 12:52:00* Test Item Value Reference Range Comments SODIUM (BEAKER) (test mwlk=040) 135 meq/L 135-148 BLOOD GAS, [id number] 12:52:00* Test Item Value Reference Range Comments PH ARTERIAL (BEAKER) (test wuna=794) 7.45 7.35-7.45 PCO2 ARTERIAL (BEAKER) (test motv=615) 26 mmHg 35-45 PO2 ARTERIAL (BEAKER) (test zofq=300) 406 mmHg 80-90 O2 SATURATION ARTERIAL (BEAKER) (test gfbn=201) 99.8 % 96.0-97.0 HCO3 ARTERIAL (BEAKER) (test awbx=745) 18 mmol/L 21-29 BASE EXCESS ARTERIAL (BEAKER) (test zujy=452) -6.3 mmol/L -2.0-3.0 PATIENT TEMPERATURE (BEAKER) (test mtiq=5979) 35.0 C FIO2 (BEAKER) (test gniq=5337) 100.0 % POTASSIUM-STAT [id number] 12:52:00* Test Item Value Reference Range Comments POTASSIUM (BEAKER) (test obvn=407) 3.2 meq/L 3.6-5.5 GLUCOSE-STAT [id number] 12:52:00* Test Item Value Reference Range Comments GLUCOSE RANDOM (BEAKER) (test fadp=992) 263 mg/dL 70-110 HGB/HCT (H&H) - STAT [id number] 12:52:00* Test Item Value Reference Range Comments HEMOGLOBIN (BEAKER) (test qgjf=594) 7.5 g/dL 12.0-15.0 HEMATOCRIT (BEAKER) (test dysc=788) 22.0 % 36.0-45.0 HGB/HCT (H&H) - STAT [id number] 12:12:00* Test Item Value Reference Range Comments HEMOGLOBIN (BEAKER) (test cmxe=173) 5.3 g/dL 12.0-15.0 HEMATOCRIT (BEAKER) (test cytn=615) 16.0 % 36.0-45.0 BLOOD GAS, [id number] 12:11:00* Test Item Value Reference Range Comments PH ARTERIAL (BEAKER) (test fysd=171) 7.43 7.35-7.45 PCO2 ARTERIAL (BEAKER) (test svvv=308) 45 mmHg 35-45 PO2 ARTERIAL (BEAKER) (test oodn=314) 241 mmHg 80-90 O2 SATURATION ARTERIAL (BEAKER) (test vbsl=327) 99.6 % 96.0-97.0 HCO3 ARTERIAL (BEAKER) (test pjdf=395) 30 mmol/L 21-29 BASE EXCESS ARTERIAL (BEAKER) (test yemx=563) 4.5 mmol/L -2.0-3.0 PATIENT TEMPERATURE (BEAKER) (test qrnh=8107) 35.3 C FIO2 (BEAKER) (test erqx=0423) 75.0 % POTASSIUM-STAT [id number] 12:11:00* Test Item Value Reference Range Comments POTASSIUM (BEAKER) (test udqf=590) 3.2 meq/L 3.6-5.5 GLUCOSE-STAT [id number] 12:11:00* Test Item Value Reference Range Comments GLUCOSE RANDOM (BEAKER) (test nrpz=940) 269 mg/dL 70-110 SODIUM NA-STAT [id number] 12:10:00* Test Item Value Reference Range Comments SODIUM (BEAKER) (test arjr=883) 138 meq/L 135-148 [id number] 12:05:00* Test Item Value Reference Range Comments PARTIAL THROMBOPLASTIN TIME (BEAKER) (test fykw=315) > seconds 22.5-36.0 [id number] 11:19:00* Test Item Value Reference Range Comments ACTIVATED CLOTTING TIME (BEAKER) (test dxci=727) 582 sec TESTED AT [place] [address] [id number] 11:19:00* Test Item Value Reference Range Comments ACTIVATED CLOTTING TIME (BEAKER) (test ewnz=725) 455 sec TESTED AT [place] [address] [id number] 11:19:00* Test Item Value Reference Range Comments ACTIVATED CLOTTING TIME (BEAKER) (test spit=998) 747 sec TESTED AT [place] [address] [id number] 11:19:00* Test Item Value Reference Range Comments ACTIVATED CLOTTING TIME (BEAKER) (test ijgm=564) 874 sec TESTED AT [place] [address] [id number] 11:19:00* Test Item Value Reference Range Comments ACTIVATED CLOTTING TIME (BEAKER) (test cpfo=390) > sec OUTSIDE MEASURING RANGETESTED AT [place] [address] [id number] 11:19:00* Test Item Value Reference Range Comments ACTIVATED CLOTTING TIME (BEAKER) (test solj=899) 879 sec TESTED AT [place] [address] [id number] 11:17:00* Test Item Value Reference Range Comments FIBRINOGEN LEVEL (BEAKER) (test blrw=385) 125 mg/dl 225-434 HGB/HCT (H&H) - STAT [id number] 11:12:00* Test Item Value Reference Range Comments HEMOGLOBIN (BEAKER) (test axic=246) 6.0 g/dL 12.0-15.0 HEMATOCRIT (BEAKER) (test idhu=342) 18.0 % 36.0-45.0 BLOOD GAS, [id number] 11:11:00* Test Item Value Reference Range Comments PH ARTERIAL (BEAKER) (test nglq=013) 7.39 7.35-7.45 PCO2 ARTERIAL (BEAKER) (test wkqh=180) 33 mmHg 35-45 PO2 ARTERIAL (BEAKER) (test sslv=041) 260 mmHg 80-90 O2 SATURATION ARTERIAL (BEAKER) (test ktpj=064) 99.6 % 96.0-97.0 HCO3 ARTERIAL (BEAKER) (test fsen=017) 20 mmol/L 21-29 BASE EXCESS ARTERIAL (BEAKER) (test gvxx=465) -5.2 mmol/L -2.0-3.0 PATIENT TEMPERATURE (BEAKER) (test giyl=1645) 35.5 C FIO2 (BEAKER) (test stob=5734) 75.0 % SODIUM NA-STAT [id number] 11:11:00* Test Item Value Reference Range Comments SODIUM (BEAKER) (test lpws=092) 131 meq/L 135-148 GLUCOSE-STAT [id number] 11:11:00* Test Item Value Reference Range Comments GLUCOSE RANDOM (BEAKER) (test bquj=687) 217 mg/dL 70-110 POTASSIUM-STAT [id number] 11:10:00* Test Item Value Reference Range Comments POTASSIUM (BEAKER) (test nfgf=281) 3.6 meq/L 3.6-5.5 PROTHROMBIN TIME/[id number] 11:07:00* Test Item Value Reference Range Comments PROTIME (BEAKER) (test vvyb=361) 27.6 seconds 11.7-14.7 INR (BEAKER) (test vjns=924) 2.6 <=5.9 RECOMMENDED COUMADIN/WARFARIN INR THERAPY RANGESSTANDARD DOSE: 2.0 - 3.0 Inclu connie: PROPHYLAXIS for venous thrombosis, systemic embolization; TREATMENT for lupis ous thrombosis and/or pulmonary embolus.HIGH RISK: Target INR is 2.5-3.5 for pat ients with mechanical heart valves.PLATELET [id number] 11:04:00* Test Item Value Reference Range Comments PLATELET COUNT (BEAKER) (test cfgd=063) 82 K/CU MM 150-450 BLOOD GAS, [id number] 10:41:00* Test Item Value Reference Range Comments PH ARTERIAL (BEAKER) (test ffxd=082) 7.42 7.35-7.45 PCO2 ARTERIAL (BEAKER) (test xquk=502) 34 mmHg 35-45 PO2 ARTERIAL (BEAKER) (test hcyp=103) 309 mmHg 80-90 O2 SATURATION ARTERIAL (BEAKER) (test iwfh=929) 99.7 % 96.0-97.0 HCO3 ARTERIAL (BEAKER) (test gtgu=486) 22 mmol/L 21-29 BASE EXCESS ARTERIAL (BEAKER) (test hbmt=299) -2.7 mmol/L -2.0-3.0 PATIENT TEMPERATURE (BEAKER) (test rzsa=8312) 35.4 C FIO2 (BEAKER) (test xonx=3736) 75.0 % SODIUM NA-STAT [id number] 10:41:00* Test Item Value Reference Range Comments SODIUM (BEAKER) (test uweq=837) 130 meq/L 135-148 GLUCOSE-STAT [id number] 10:41:00* Test Item Value Reference Range Comments GLUCOSE RANDOM (BEAKER) (test axgm=335) 192 mg/dL 70-110 HGB/HCT (H&H) - STAT [id number] 10:41:00* Test Item Value Reference Range Comments HEMOGLOBIN (BEAKER) (test jxup=433) 7.1 g/dL 12.0-15.0 HEMATOCRIT (BEAKER) (test lymc=121) 21.0 % 36.0-45.0 POTASSIUM-STAT [id number] 10:40:00* Test Item Value Reference Range Comments POTASSIUM (BEAKER) (test gkxy=543) 4.6 meq/L 3.6-5.5 BLOOD GAS, [id number] 10:23:00* Test Item Value Reference Range Comments PH ARTERIAL (BEAKER) (test msjf=580) 7.41 7.35-7.45 PCO2 ARTERIAL (BEAKER) (test srog=784) 37 mmHg 35-45 PO2 ARTERIAL (BEAKER) (test hyjr=788) 307 mmHg 80-90 O2 SATURATION ARTERIAL (BEAKER) (test mfpv=251) 99.7 % 96.0-97.0 HCO3 ARTERIAL (BEAKER) (test rmrn=813) 24 mmol/L 21-29 BASE EXCESS ARTERIAL (BEAKER) (test tmju=181) -1.6 mmol/L -2.0-3.0 PATIENT TEMPERATURE (BEAKER) (test qtup=9465) 33.0 C FIO2 (BEAKER) (test butu=2239) 60.0 % SODIUM NA-STAT [id number] 10:23:00* Test Item Value Reference Range Comments SODIUM (BEAKER) (test kdie=422) 130 meq/L 135-148 GLUCOSE-STAT [id number] 10:23:00* Test Item Value Reference Range Comments GLUCOSE RANDOM (BEAKER) (test klon=540) 183 mg/dL 70-110 HGB/HCT (H&H) - STAT [id number] 10:23:00* Test Item Value Reference Range Comments HEMOGLOBIN (BEAKER) (test jiei=079) 6.9 g/dL 12.0-15.0 HEMATOCRIT (BEAKER) (test smvf=212) 20.0 % 36.0-45.0 POTASSIUM-STAT [id number] 10:22:00* Test Item Value Reference Range Comments POTASSIUM (BEAKER) (test jswy=207) 5.1 meq/L 3.6-5.5 BLOOD GAS, [id number] 09:54:00* Test Item Value Reference Range Comments PH ARTERIAL (BEAKER) (test yqey=514) 7.43 7.35-7.45 PCO2 ARTERIAL (BEAKER) (test xict=150) 37 mmHg 35-45 PO2 ARTERIAL (BEAKER) (test xpol=867) 317 mmHg 80-90 O2 SATURATION ARTERIAL (BEAKER) (test qfkm=934) 99.7 % 96.0-97.0 HCO3 ARTERIAL (BEAKER) (test ojck=370) 26 mmol/L 21-29 BASE EXCESS ARTERIAL (BEAKER) (test mplh=317) -0.3 mmol/L -2.0-3.0 PATIENT TEMPERATURE (BEAKER) (test qcor=9736) 28.8 C FIO2 (BEAKER) (test abtz=4712) 60.0 % SODIUM NA-STAT [id number] 09:54:00* Test Item Value Reference Range Comments SODIUM (BEAKER) (test wlwp=225) 130 meq/L 135-148 GLUCOSE-STAT [id number] 09:54:00* Test Item Value Reference Range Comments GLUCOSE RANDOM (BEAKER) (test rrje=422) 174 mg/dL 70-110 HGB/HCT (H&H) - STAT [id number] 09:54:00* Test Item Value Reference Range Comments HEMOGLOBIN (BEAKER) (test hdsm=471) 7.8 g/dL 12.0-15.0 HEMATOCRIT (BEAKER) (test lgrp=119) 23.0 % 36.0-45.0 POTASSIUM-STAT [id number] 09:53:00* Test Item Value Reference Range Comments POTASSIUM (BEAKER) (test fxge=286) 5.3 meq/L 3.6-5.5 HGB/HCT (H&H) - STAT [id number] 09:33:00* Test Item Value Reference Range Comments HEMOGLOBIN (BEAKER) (test mnvp=966) 5.1 g/dL 12.0-15.0 HEMATOCRIT (BEAKER) (test bwmv=022) 15.0 % 36.0-45.0 SODIUM NA-STAT [id number] 09:27:00* Test Item Value Reference Range Comments SODIUM (BEAKER) (test uqwr=608) 128 meq/L 135-148 POTASSIUM-STAT [id number] 09:27:00* Test Item Value Reference Range Comments POTASSIUM (BEAKER) (test kgsh=009) 5.6 meq/L 3.6-5.5 GLUCOSE-STAT [id number] 09:27:00* Test Item Value Reference Range Comments GLUCOSE RANDOM (BEAKER) (test rriy=134) 134 mg/dL 70-110 BLOOD GAS, [id number] 09:27:00* Test Item Value Reference Range Comments PH ARTERIAL (BEAKER) (test deqx=514) 7.40 7.35-7.45 PCO2 ARTERIAL (BEAKER) (test pbzz=046) 34 mmHg 35-45 PO2 ARTERIAL (BEAKER) (test oiov=390) 333 mmHg 80-90 O2 SATURATION ARTERIAL (BEAKER) (test wxno=898) 99.7 % 96.0-97.0 HCO3 ARTERIAL (BEAKER) (test sojb=566) 23 mmol/L 21-29 BASE EXCESS ARTERIAL (BEAKER) (test szhw=886) -3.6 mmol/L -2.0-3.0 PATIENT TEMPERATURE (BEAKER) (test ieov=2808) 28.5 C FIO2 (BEAKER) (test afhq=2701) 60.0 % BLOOD GAS, [id number] 09:09:00* Test Item Value Reference Range Comments PH ARTERIAL (BEAKER) (test aiyd=285) 7.46 7.35-7.45 PCO2 ARTERIAL (BEAKER) (test lgqd=165) 28 mmHg 35-45 PO2 ARTERIAL (BEAKER) (test ocqq=562) 332 mmHg 80-90 O2 SATURATION ARTERIAL (BEAKER) (test okrt=769) 99.8 % 96.0-97.0 HCO3 ARTERIAL (BEAKER) (test gkaq=848) 22 mmol/L 21-29 BASE EXCESS ARTERIAL (BEAKER) (test fuxk=191) -4.2 mmol/L -2.0-3.0 PATIENT TEMPERATURE (BEAKER) (test cewy=4218) 25.3 C FIO2 (BEAKER) (test icwm=0344) 60.0 % SODIUM NA-STAT [id number] 09:09:00* Test Item Value Reference Range Comments SODIUM (BEAKER) (test gdss=593) 125 meq/L 135-148 POTASSIUM-STAT [id number] 09:09:00* Test Item Value Reference Range Comments POTASSIUM (BEAKER) (test veof=319) 3.2 meq/L 3.6-5.5 GLUCOSE-STAT [id number] 09:09:00* Test Item Value Reference Range Comments GLUCOSE RANDOM (BEAKER) (test oxpk=766) 131 mg/dL 70-110 HGB/HCT (H&H) - STAT [id number] 09:09:00* Test Item Value Reference Range Comments HEMOGLOBIN (BEAKER) (test mdgm=909) 7.2 g/dL 12.0-15.0 HEMATOCRIT (BEAKER) (test kmem=365) 21.0 % 36.0-45.0 BLOOD GAS, [id number] 08:13:00* Test Item Value Reference Range Comments PH ARTERIAL (BEAKER) (test nyuc=922) 7.48 7.35-7.45 PCO2 ARTERIAL (BEAKER) (test qxdb=426) 32 mmHg 35-45 PO2 ARTERIAL (BEAKER) (test slrb=509) 408 mmHg 80-90 O2 SATURATION ARTERIAL (BEAKER) (test otbq=182) 99.8 % 96.0-97.0 HCO3 ARTERIAL (BEAKER) (test xzen=322) 23 mmol/L 21-29 BASE EXCESS ARTERIAL (BEAKER) (test smyk=165) 0.0 mmol/L -2.0-3.0 PATIENT TEMPERATURE (BEAKER) (test ouex=2388) 36.0 C FIO2 (BEAKER) (test cyef=9181) 100.0 % SODIUM NA-STAT [id number] 08:13:00* Test Item Value Reference Range Comments SODIUM (BEAKER) (test aecy=136) 132 meq/L 135-148 HGB/HCT (H&H) - STAT [id number] 08:13:00* Test Item Value Reference Range Comments HEMOGLOBIN (BEAKER) (test bygg=469) 9.4 g/dL 12.0-15.0 HEMATOCRIT (BEAKER) (test wltk=457) 28.0 % 36.0-45.0 GLUCOSE-STAT [id number] 08:12:00* Test Item Value Reference Range Comments GLUCOSE RANDOM (BEAKER) (test yemx=554) 96 mg/dL 70-110 POTASSIUM-STAT [id number] 08:12:00* Test Item Value Reference Range Comments POTASSIUM (BEAKER) (test rskd=146) 3.6 meq/L 3.6-5.5 FILTER IONIZED [id number] 08:12:00* Test Item Value Reference Range Comments FILTER IONIZED CALCIUM (BEAKER) (test ntmr=1252) 1.00 mmol/L Reference Range: No [id number] 05:57:00* Test Item Value Reference Range Comments MAGNESIUM (BEAKER) (test tnse=222) 2.0 mg/dL 1.6-2.6 BASIC METABOLIC [id number] 05:57:00* Test Item Value Reference Range Comments SODIUM (BEAKER) (test vfet=111) 133 meq/L 136-145 POTASSIUM (BEAKER) (test knhi=452) 3.8 meq/L 3.5-5.1 CHLORIDE (BEAKER) (test nqhp=455) 100 meq/L 98-107 CO2 (BEAKER) (test ayzy=182) 22 meq/L 22-29 BLOOD UREA NITROGEN (BEAKER) (test dowp=177) 26 mg/dL 7-21 CREATININE (BEAKER) (test ljtl=080) 1.32 mg/dL 0.57-1.25 GLUCOSE RANDOM (BEAKER) (test dflc=750) 94 mg/dL 70-105 CALCIUM (BEAKER) (test gqgl=062) 9.6 mg/dL 8.4-10.2 EGFR (BEAKER) (test vwln=9122) 42 mL/min/1.73 sq m ESTIMATED GFR IS NOT ACCURATE CREATININE CLEARANCE IN PREDICTING GLOMERULAR FILTRATION RATE. ESTIMATED GFR IS NOT APPLICABLE FOR DIALYSIS PATIENTS. CBC (HEMOGRAM ONLY)2018-01-31 05:34:00* Test Item Value Reference Range Comments WHITE BLOOD CELL COUNT (BEAKER) (test mmnz=769) 6.9 K/ L 3.5-10.5 RED BLOOD CELL COUNT (BEAKER) (test mmrk=910) 3.71 M/ L 3.93-5.22 HEMOGLOBIN (BEAKER) (test twwu=540) 10.4 GM/DL 11.2-15.7 HEMATOCRIT (BEAKER) (test pkit=576) 32.1 % 34.1-44.9 MEAN CORPUSCULAR VOLUME (BEAKER) (test mobd=631) 86.5 fL 79.4-94.8 MEAN CORPUSCULAR HEMOGLOBIN (BEAKER) (test fkov=651) 28.0 pg 25.6-32.2 MEAN CORPUSCULAR HEMOGLOBIN CONC (BEAKER) (test plsg=591) 32.4 GM/DL 32.2-35.5 RED CELL DISTRIBUTION WIDTH (BEAKER) (test esuz=201) 13.6 % 11.7-14.4 PLATELET COUNT (BEAKER) (test sbmo=147) 206 K/CU MM 150-450 MEAN PLATELET VOLUME (BEAKER) (test hsja=649) 10.3 fL 9.4-12.3 NUCLEATED RED BLOOD CELLS (BEAKER) (test uuue=217) 0 /100 WBC 0-0 RAD, CHEST, 2 [id number] 21:04:00Reason for exam:->pre opIs the patient ?->UnknownShould this be performed at the bedside?->YesFINAL REPORT INDICATION: pre op COMPARISON: January 19, 2018 TECHNIQUE: Frontal and lateral views of the chest. FINDINGS: Lungs and pleura: Clear lungs. No effusion.Heart and mediastinum: Normal heart size. Stable mediastinal surgical changes.Osseous structures: No acute abnormality.Additional findings: None. IMPRESSION: No acute intrathoracic abnormality. Signed: JR Lucas Robert MDReport Verified Date/Time: 01/30/2018 21:04:15 Reading Location: [facility] C013 CT Body Reading Room GLOBIN [id number] 19:55:00* Test Item Value Reference Range Comments HEMOGLOBIN A1C (BEAKER) (test bprd=105) 6.1 % 4.3-6.1 COMPREHENSIVE METABOLIC [id number] 19:21:00* Test Item Value Reference Range Comments TOTAL PROTEIN (BEAKER) (test bkcb=825) 7.8 gm/dL 6.0-8.3 ALBUMIN (BEAKER) (test kmql=7397) 4.7 g/dL 3.5-5.0 ALKALINE PHOSPHATASE (BEAKER) (test mhgx=500) 92 U/L 40-150 BILIRUBIN TOTAL (BEAKER) (test xoyd=563) 0.6 mg/dL 0.2-1.2 SODIUM (BEAKER) (test bdyz=190) 135 meq/L 136-145 POTASSIUM (BEAKER) (test halb=516) 3.9 meq/L 3.5-5.1 CHLORIDE (BEAKER) (test dgwv=472) 101 meq/L 98-107 CO2 (BEAKER) (test dipq=080) 21 meq/L 22-29 BLOOD UREA NITROGEN (BEAKER) (test ffbg=271) 27 mg/dL 7-21 CREATININE (BEAKER) (test akou=691) 1.49 mg/dL 0.57-1.25 GLUCOSE RANDOM (BEAKER) (test umam=362) 119 mg/dL 70-105 CALCIUM (BEAKER) (test nutk=869) 9.9 mg/dL 8.4-10.2 AST (SGOT) (BEAKER) (test smgf=075) 33 U/L 5-34 ALT (SGPT) (BEAKER) (test lmfg=915) 53 U/L 6-55 EGFR (BEAKER) (test wvii=6331) 37 mL/min/1.73 sq m ESTIMATED GFR IS NOT ACCURATE CREATININE CLEARANCE IN PREDICTING GLOMERULAR FILTRATION RATE. ESTIMATED GFR IS NOT APPLICABLE FOR DIALYSIS PATIENTS. [id number] 19:10:00* Test Item Value Reference Range Comments PARTIAL THROMBOPLASTIN TIME (BEAKER) (test etvq=756) 53.3 seconds 22.5-36.0 PROTHROMBIN TIME/[id number] 19:09:00* Test Item Value Reference Range Comments PROTIME (BEAKER) (test liop=956) 14.0 seconds 11.7-14.7 INR (BEAKER) (test qmca=636) 1.1 <=5.9 RECOMMENDED COUMADIN/WARFARIN INR THERAPY RANGESSTANDARD DOSE: 2.0 - 3.0 Inclu connie: PROPHYLAXIS for venous thrombosis, systemic embolization; TREATMENT for lupis ous thrombosis and/or pulmonary embolus.HIGH RISK: Target INR is 2.5-3.5 for pat ients with mechanical heart valves.CBC W/PLT COUNT & AUTO [id number] 19:03:00* Test Item Value Reference Range Comments WHITE BLOOD CELL COUNT (BEAKER) (test phvm=162) 6.9 K/ L 3.5-10.5 RED BLOOD CELL COUNT (BEAKER) (test wgig=008) 3.91 M/ L 3.93-5.22 HEMOGLOBIN (BEAKER) (test nvih=929) 11.2 GM/DL 11.2-15.7 HEMATOCRIT (BEAKER) (test wcsx=008) 33.6 % 34.1-44.9 MEAN CORPUSCULAR VOLUME (BEAKER) (test lsoh=355) 85.9 fL 79.4-94.8 MEAN CORPUSCULAR HEMOGLOBIN (BEAKER) (test vxar=930) 28.6 pg 25.6-32.2 MEAN CORPUSCULAR HEMOGLOBIN CONC (BEAKER) (test qnap=037) 33.3 GM/DL 32.2-35.5 RED CELL DISTRIBUTION WIDTH (BEAKER) (test pdhr=332) 13.6 % 11.7-14.4 PLATELET COUNT (BEAKER) (test msfh=213) 216 K/CU MM 150-450 MEAN PLATELET VOLUME (BEAKER) (test xean=780) 10.2 fL 9.4-12.3 NUCLEATED RED BLOOD CELLS (BEAKER) (test wlwi=889) 0 /100 WBC 0-0 NEUTROPHILS RELATIVE PERCENT (BEAKER) (test ijje=296) 44 % LYMPHOCYTES RELATIVE PERCENT (BEAKER) (test rrsu=405) 43 % MONOCYTES RELATIVE PERCENT (BEAKER) (test qwsi=463) 8 % EOSINOPHILS RELATIVE PERCENT (BEAKER) (test bguh=856) 6 % BASOPHILS RELATIVE PERCENT (BEAKER) (test peda=286) 0 % NEUTROPHILS ABSOLUTE COUNT (BEAKER) (test ktxx=876) 2.98 K/ L 1.56-6.13 LYMPHOCYTES ABSOLUTE COUNT (BEAKER) (test vzog=788) 2.92 K/ L 1.18-3.74 MONOCYTES ABSOLUTE COUNT (BEAKER) (test aclm=454) 0.53 K/ L 0.24-0.36 EOSINOPHILS ABSOLUTE COUNT (BEAKER) (test khky=395) 0.38 K/ L 0.04-0.36 BASOPHILS ABSOLUTE COUNT (BEAKER) (test azjg=734) 0.03 K/ L 0.01-0.08 IMMATURE GRANULOCYTES-RELATIVE PERCENT (BEAKER) (test prlc=3935) 0 % 0-1 [id number] 06:13:00* Test Item Value Reference Range Comments MAGNESIUM (BEAKER) (test lcym=893) 1.9 mg/dL 1.6-2.6 BASIC METABOLIC [id number] 06:13:00* Test Item Value Reference Range Comments SODIUM (BEAKER) (test ngjg=496) 134 meq/L 136-145 POTASSIUM (BEAKER) (test awsk=304) 4.0 meq/L 3.5-5.1 CHLORIDE (BEAKER) (test hejz=218) 99 meq/L 98-107 CO2 (BEAKER) (test wnew=906) 23 meq/L 22-29 BLOOD UREA NITROGEN (BEAKER) (test kydq=679) 27 mg/dL 7-21 CREATININE (BEAKER) (test ezmt=979) 1.37 mg/dL 0.57-1.25 GLUCOSE RANDOM (BEAKER) (test esga=313) 97 mg/dL 70-105 CALCIUM (BEAKER) (test mpnt=710) 9.2 mg/dL 8.4-10.2 EGFR (BEAKER) (test ifni=3166) 40 mL/min/1.73 sq m ESTIMATED GFR IS NOT ACCURATE CREATININE CLEARANCE IN PREDICTING GLOMERULAR FILTRATION RATE. ESTIMATED GFR IS NOT APPLICABLE FOR DIALYSIS PATIENTS. [id number] 05:13:00* Test Item Value Reference Range Comments PARTIAL THROMBOPLASTIN TIME (BEAKER) (test amql=855) 56.9 seconds 22.5-36.0 CBC (HEMOGRAM ONLY)2018-01-30 05:00:00* Test Item Value Reference Range Comments WHITE BLOOD CELL COUNT (BEAKER) (test hcok=492) 7.9 K/ L 3.5-10.5 RED BLOOD CELL COUNT (BEAKER) (test oivy=377) 3.66 M/ L 3.93-5.22 HEMOGLOBIN (BEAKER) (test llgp=260) 10.4 GM/DL 11.2-15.7 HEMATOCRIT (BEAKER) (test armg=183) 31.7 % 34.1-44.9 MEAN CORPUSCULAR VOLUME (BEAKER) (test ftcw=329) 86.6 fL 79.4-94.8 MEAN CORPUSCULAR HEMOGLOBIN (BEAKER) (test vadz=201) 28.4 pg 25.6-32.2 MEAN CORPUSCULAR HEMOGLOBIN CONC (BEAKER) (test cjss=683) 32.8 GM/DL 32.2-35.5 RED CELL DISTRIBUTION WIDTH (BEAKER) (test yudk=902) 13.7 % 11.7-14.4 PLATELET COUNT (BEAKER) (test nytp=749) 198 K/CU MM 150-450 MEAN PLATELET VOLUME (BEAKER) (test eqti=396) 10.1 fL 9.4-12.3 NUCLEATED RED BLOOD CELLS (BEAKER) (test ykhm=138) 0 /100 WBC 0-0 [id number] 22:29:00* Test Item Value Reference Range Comments PARTIAL THROMBOPLASTIN TIME (BEAKER) (test ghkm=329) 71.7 seconds 22.5-36.0 PT/[id number] 13:28:00* Test Item Value Reference Range Comments PROTIME (BEAKER) (test qqab=846) 14.3 seconds 11.7-14.7 INR (BEAKER) (test hgxl=503) 1.1 <=5.9 PARTIAL THROMBOPLASTIN TIME (BEAKER) (test gavl=190) 78.0 seconds 22.5-36.0 RECOMMENDED COUMADIN/WARFARIN INR THERAPY RANGESSTANDARD DOSE: 2.0 - 3.0 Inclu connie: PROPHYLAXIS for venous thrombosis, systemic embolization; TREATMENT for lupis ous thrombosis and/or pulmonary embolus.HIGH RISK: Target INR is 2.5-3.5 for pat ients with mechanical heart valves.[id number] 07:58:00* Test Item Value Reference Range Comments MAGNESIUM (BEAKER) (test odpi=693) 1.8 mg/dL 1.6-2.6 BASIC METABOLIC [id number] 07:58:00* Test Item Value Reference Range Comments SODIUM (BEAKER) (test rgmk=220) 136 meq/L 136-145 POTASSIUM (BEAKER) (test gftq=407) 4.0 meq/L 3.5-5.1 CHLORIDE (BEAKER) (test skyy=725) 105 meq/L 98-107 CO2 (BEAKER) (test pfdo=704) 21 meq/L 22-29 BLOOD UREA NITROGEN (BEAKER) (test pjvz=029) 19 mg/dL 7-21 CREATININE (BEAKER) (test zxsm=163) 1.15 mg/dL 0.57-1.25 GLUCOSE RANDOM (BEAKER) (test iekg=559) 101 mg/dL 70-105 CALCIUM (BEAKER) (test vijv=064) 9.2 mg/dL 8.4-10.2 EGFR (BEAKER) (test naki=2369) 50 mL/min/1.73 sq m ESTIMATED GFR IS NOT ACCURATE CREATININE CLEARANCE IN PREDICTING GLOMERULAR FILTRATION RATE. ESTIMATED GFR IS NOT APPLICABLE FOR DIALYSIS PATIENTS. [id number] 05:46:00* Test Item Value Reference Range Comments PARTIAL THROMBOPLASTIN TIME (BEAKER) (test kcds=602) 88.1 seconds 22.5-36.0 CBC (HEMOGRAM ONLY)2018-01-29 05:11:00* Test Item Value Reference Range Comments WHITE BLOOD CELL COUNT (BEAKER) (test svut=109) 6.8 K/ L 3.5-10.5 RED BLOOD CELL COUNT (BEAKER) (test gfct=788) 3.61 M/ L 3.93-5.22 HEMOGLOBIN (BEAKER) (test xfan=947) 10.2 GM/DL 11.2-15.7 HEMATOCRIT (BEAKER) (test ijcr=468) 31.7 % 34.1-44.9 MEAN CORPUSCULAR VOLUME (BEAKER) (test rnlc=713) 87.8 fL 79.4-94.8 MEAN CORPUSCULAR HEMOGLOBIN (BEAKER) (test mnpw=672) 28.3 pg 25.6-32.2 MEAN CORPUSCULAR HEMOGLOBIN CONC (BEAKER) (test myay=993) 32.2 GM/DL 32.2-35.5 RED CELL DISTRIBUTION WIDTH (BEAKER) (test eswt=539) 13.5 % 11.7-14.4 PLATELET COUNT (BEAKER) (test sxqj=558) 185 K/CU MM 150-450 MEAN PLATELET VOLUME (BEAKER) (test pnhv=634) 10.3 fL 9.4-12.3 NUCLEATED RED BLOOD CELLS (BEAKER) (test ciqq=738) 0 /100 WBC 0-0 [id number] 17:17:00* Test Item Value Reference Range Comments PARTIAL THROMBOPLASTIN TIME (BEAKER) (test wbis=105) 60.9 seconds 22.5-36.0 POCT-GLUCOSE [id number] 17:07:00* Test Item Value Reference Range Comments POC-GLUCOSE METER (BEAKER) (test shju=6513) 193 mg/dL 70-110 TESTED AT [address] [address] POCT-GLUCOSE [id number] 12:34:00* Test Item Value Reference Range Comments POC-GLUCOSE METER (BEAKER) (test xsqe=5184) 97 mg/dL 70-110 TESTED AT [address] [address] [id number] 10:01:00* Test Item Value Reference Range Comments PARTIAL THROMBOPLASTIN TIME (BEAKER) (test cmqe=923) 57.5 seconds 22.5-36.0 POCT-GLUCOSE [id number] 08:18:00* Test Item Value Reference Range Comments POC-GLUCOSE METER (BEAKER) (test kgsb=3248) 93 mg/dL 70-110 TESTED AT [address] [address] [id number] 08:07:00* Test Item Value Reference Range Comments PARTIAL THROMBOPLASTIN TIME (BEAKER) (test awib=667) 162.9 seconds 22.5-36.0 [id number] 06:41:00* Test Item Value Reference Range Comments MAGNESIUM (BEAKER) (test kftl=284) 1.9 mg/dL 1.6-2.6 BASIC METABOLIC [id number] 06:41:00* Test Item Value Reference Range Comments SODIUM (BEAKER) (test bvlx=395) 130 meq/L 136-145 POTASSIUM (BEAKER) (test tlvr=962) 3.5 meq/L 3.5-5.1 CHLORIDE (BEAKER) (test kjoe=317) 100 meq/L 98-107 CO2 (BEAKER) (test fdqx=221) 21 meq/L 22-29 BLOOD UREA NITROGEN (BEAKER) (test wscu=915) 20 mg/dL 7-21 CREATININE (BEAKER) (test gjgh=617) 1.13 mg/dL 0.57-1.25 GLUCOSE RANDOM (BEAKER) (test aghx=444) 113 mg/dL 70-105 CALCIUM (BEAKER) (test rjtr=304) 9.0 mg/dL 8.4-10.2 EGFR (BEAKER) (test uilv=2200) 51 mL/min/1.73 sq m ESTIMATED GFR IS NOT ACCURATE CREATININE CLEARANCE IN PREDICTING GLOMERULAR FILTRATION RATE. ESTIMATED GFR IS NOT APPLICABLE FOR DIALYSIS PATIENTS. [id number] 05:52:00* Test Item Value Reference Range Comments PARTIAL THROMBOPLASTIN TIME (BEAKER) (test ggxf=363) 162.9 seconds 22.5-36.0 CBC (HEMOGRAM ONLY)2018-01-28 05:14:00* Test Item Value Reference Range Comments WHITE BLOOD CELL COUNT (BEAKER) (test lzzo=907) 6.1 K/ L 3.5-10.5 RED BLOOD CELL COUNT (BEAKER) (test vlya=408) 3.47 M/ L 3.93-5.22 HEMOGLOBIN (BEAKER) (test moll=293) 9.8 GM/DL 11.2-15.7 HEMATOCRIT (BEAKER) (test yqta=333) 30.3 % 34.1-44.9 MEAN CORPUSCULAR VOLUME (BEAKER) (test yxon=252) 87.3 fL 79.4-94.8 MEAN CORPUSCULAR HEMOGLOBIN (BEAKER) (test sptf=178) 28.2 pg 25.6-32.2 MEAN CORPUSCULAR HEMOGLOBIN CONC (BEAKER) (test yczs=215) 32.3 GM/DL 32.2-35.5 RED CELL DISTRIBUTION WIDTH (BEAKER) (test phbk=233) 13.5 % 11.7-14.4 PLATELET COUNT (BEAKER) (test fnjq=315) 183 K/CU MM 150-450 MEAN PLATELET VOLUME (BEAKER) (test uogs=687) 10.4 fL 9.4-12.3 NUCLEATED RED BLOOD CELLS (BEAKER) (test ozhk=601) 0 /100 WBC 0-0 POCT-GLUCOSE [id number] 20:33:00* Test Item Value Reference Range Comments POC-GLUCOSE METER (BEAKER) (test udgr=4698) 119 mg/dL 70-110 TESTED AT [address] [address] PLATELET AGGREGATION: FUNCTION [id number] 16:53:00* Test Item Value Reference Range Comments WEAK ADP RESULT(BEAKER) (test bfbt=6230) 53 % 60-91 PLATELET FUNCTION SCREEN INTERP (BEAKER) (test ofly=4778) 50-59% indicates mild platelet dysfunction [id number] (BEAKER) (test gywu=0456) Merry Rangel MD (electronic signature) PLATELET COUNT AGG (BEAKER) (test ufrp=1563) 165 K/CU MM 150-450 [id number] 14:50:00* Test Item Value Reference Range Comments PARTIAL THROMBOPLASTIN TIME (BEAKER) (test gfoi=404) 100.0 seconds 22.5-36.0 HEMOGLOBIN AND [id number] 14:36:00* Test Item Value Reference Range Comments HEMOGLOBIN (BEAKER) (test dngk=585) 10.9 GM/DL 11.2-15.7 HEMATOCRIT (BEAKER) (test cbvr=248) 33.0 % 34.1-44.9 [id number] 06:51:00* Test Item Value Reference Range Comments PARTIAL THROMBOPLASTIN TIME (BEAKER) (test qegv=039) 88.6 seconds 22.5-36.0 [id number] 05:03:00* Test Item Value Reference Range Comments MAGNESIUM (BEAKER) (test gknx=435) 2.2 mg/dL 1.6-2.6 BASIC METABOLIC [id number] 05:03:00* Test Item Value Reference Range Comments SODIUM (BEAKER) (test hnkc=393) 135 meq/L 136-145 POTASSIUM (BEAKER) (test ckpz=329) 4.0 meq/L 3.5-5.1 CHLORIDE (BEAKER) (test ebrl=306) 103 meq/L 98-107 CO2 (BEAKER) (test llay=796) 23 meq/L 22-29 BLOOD UREA NITROGEN (BEAKER) (test gcsj=743) 21 mg/dL 7-21 CREATININE (BEAKER) (test pwpr=925) 1.16 mg/dL 0.57-1.25 GLUCOSE RANDOM (BEAKER) (test spcd=286) 98 mg/dL 70-105 CALCIUM (BEAKER) (test qqfg=799) 9.1 mg/dL 8.4-10.2 EGFR (BEAKER) (test cdja=5232) 49 mL/min/1.73 sq m ESTIMATED GFR IS NOT ACCURATE CREATININE CLEARANCE IN PREDICTING GLOMERULAR FILTRATION RATE. ESTIMATED GFR IS NOT APPLICABLE FOR DIALYSIS PATIENTS. [id number] 04:53:00* Test Item Value Reference Range Comments PARTIAL THROMBOPLASTIN TIME (BEAKER) (test eukd=775) 186.0 seconds 22.5-36.0 CBC (HEMOGRAM ONLY)2018-01-27 04:28:00* Test Item Value Reference Range Comments WHITE BLOOD CELL COUNT (BEAKER) (test puuf=573) 5.4 K/ L 3.5-10.5 RED BLOOD CELL COUNT (BEAKER) (test hljd=820) 3.62 M/ L 3.93-5.22 HEMOGLOBIN (BEAKER) (test hmsd=580) 9.9 GM/DL 11.2-15.7 HEMATOCRIT (BEAKER) (test ahsb=700) 31.5 % 34.1-44.9 MEAN CORPUSCULAR VOLUME (BEAKER) (test pzrp=244) 87.0 fL 79.4-94.8 MEAN CORPUSCULAR HEMOGLOBIN (BEAKER) (test xlpy=727) 27.3 pg 25.6-32.2 MEAN CORPUSCULAR HEMOGLOBIN CONC (BEAKER) (test rwxa=556) 31.4 GM/DL 32.2-35.5 RED CELL DISTRIBUTION WIDTH (BEAKER) (test arhx=193) 13.4 % 11.7-14.4 PLATELET COUNT (BEAKER) (test eawv=283) 171 K/CU MM 150-450 MEAN PLATELET VOLUME (BEAKER) (test xgww=034) 10.4 fL 9.4-12.3 NUCLEATED RED BLOOD CELLS (BEAKER) (test eyjk=496) 0 /100 WBC 0-0 [id number] 20:25:00* Test Item Value Reference Range Comments PARTIAL THROMBOPLASTIN TIME (BEAKER) (test vprc=010) 57.5 seconds 22.5-36.0 PLATELET AGGREGATION: FUNCTION [id number] 09:31:00* Test Item Value Reference Range Comments WEAK ADP RESULT(BEAKER) (test vnvp=1118) 24 % 60-91 PLATELET FUNCTION SCREEN INTERP (BEAKER) (test apoa=1330) 0-39% indicates marked platelet dysfunction [id number] (BEAKER) (test tqqv=6842) Odalis Lozoya MD (electronic signature) PLATELET COUNT AGG (BEAKER) (test xxwu=2733) 177 K/CU MM 150-450 PLATELET AGGREGATION: FUNCTION [id number] 09:31:00* Test Item Value Reference Range Comments WEAK ADP RESULT(BEAKER) (test ahrl=6489) 26 % 60-91 PLATELET FUNCTION SCREEN INTERP (BEAKER) (test mlif=5918) 0-39% indicates marked platelet dysfunction [id number] (BEAKER) (test lnba=2370) Odalis Lozoya MD (electronic signature) PLATELET COUNT AGG (BEAKER) (test seyg=4337) 189 K/CU MM 150-450 HCG, QUANTITATIVE, [id number] 08:18:00* Test Item Value Reference Range Comments GONADOTROPIN, CHORIONIC (HCG) QUANT (BEAKER) (test aznq=529) < mIU/mL 0-10 Non- Females: <10 mIU/mL Females: Gestation Age Reference Range(mIU/mL) 0.2-1 Week 5-50 1-2 Weeks 50-500 2-3 Weeks 100-5,000 3-4 Weeks 500-10,000 4-5 Weeks 1,000-50,000 5-6 Weeks 10,000-100,000 6-8 Weeks 15,000-200,000 2-3 Months 10,000-100,000 [id number] 05:22:00* Test Item Value Reference Range Comments PARTIAL THROMBOPLASTIN TIME (BEAKER) (test iylo=694) 28.7 seconds 22.5-36.0 PROTHROMBIN [id number] 05:21:00* Test Item Value Reference Range Comments PROTIME (BEAKER) (test ilmh=280) 14.2 seconds 11.7-14.7 INR (BEAKER) (test jiyh=637) 1.1 <=5.9 RECOMMENDED COUMADIN/WARFARIN INR THERAPY RANGESSTANDARD DOSE: 2.0 - 3.0 Inclu connie: PROPHYLAXIS for venous thrombosis, systemic embolization; TREATMENT for lupis ous thrombosis and/or pulmonary embolus.HIGH RISK: Target INR is 2.5-3.5 for pat ients with mechanical heart valves.[id number] 05:19:00* Test Item Value Reference Range Comments MAGNESIUM (BEAKER) (test puwd=147) 2.3 mg/dL 1.6-2.6 BASIC METABOLIC [id number] 05:19:00* Test Item Value Reference Range Comments SODIUM (BEAKER) (test mcmy=807) 136 meq/L 136-145 POTASSIUM (BEAKER) (test wxcc=286) 3.8 meq/L 3.5-5.1 CHLORIDE (BEAKER) (test vejg=612) 104 meq/L 98-107 CO2 (BEAKER) (test jaej=050) 25 meq/L 22-29 BLOOD UREA NITROGEN (BEAKER) (test sfbw=047) 22 mg/dL 7-21 CREATININE (BEAKER) (test gwts=431) 1.21 mg/dL 0.57-1.25 GLUCOSE RANDOM (BEAKER) (test biqj=447) 98 mg/dL 70-105 CALCIUM (BEAKER) (test faeu=800) 9.4 mg/dL 8.4-10.2 EGFR (BEAKER) (test icui=8551) 47 mL/min/1.73 sq m ESTIMATED GFR IS NOT ACCURATE CREATININE CLEARANCE IN PREDICTING GLOMERULAR FILTRATION RATE. ESTIMATED GFR IS NOT APPLICABLE FOR DIALYSIS PATIENTS. CBC (HEMOGRAM ONLY)2018-01-26 05:00:00* Test Item Value Reference Range Comments WHITE BLOOD CELL COUNT (BEAKER) (test jfwz=605) 5.5 K/ L 3.5-10.5 RED BLOOD CELL COUNT (BEAKER) (test znbo=392) 3.92 M/ L 3.93-5.22 HEMOGLOBIN (BEAKER) (test mfsm=449) 10.8 GM/DL 11.2-15.7 HEMATOCRIT (BEAKER) (test jlvv=490) 34.2 % 34.1-44.9 MEAN CORPUSCULAR VOLUME (BEAKER) (test igzj=553) 87.2 fL 79.4-94.8 MEAN CORPUSCULAR HEMOGLOBIN (BEAKER) (test romh=820) 27.6 pg 25.6-32.2 MEAN CORPUSCULAR HEMOGLOBIN CONC (BEAKER) (test bbkj=249) 31.6 GM/DL 32.2-35.5 RED CELL DISTRIBUTION WIDTH (BEAKER) (test ptlh=440) 13.6 % 11.7-14.4 PLATELET COUNT (BEAKER) (test koeg=234) 181 K/CU MM 150-450 MEAN PLATELET VOLUME (BEAKER) (test bvsw=501) 10.3 fL 9.4-12.3 NUCLEATED RED BLOOD CELLS (BEAKER) (test amah=362) 0 /100 WBC 0-0 [id number] 01:15:00* Test Item Value Reference Range Comments COL/EPI CLOSURE TIME (BEAKER) (test hgli=0494) > Seconds 78-191 COL/ADP CLOSURE TIME (BEAKER) (test kptw=3839) > Seconds 43-122 PLATELET COUNT AGG (BEAKER) (test kbpt=0860) 192 K/CU MM 150-450 [id number] 23:33:00* Test Item Value Reference Range Comments FIBRINOGEN LEVEL (BEAKER) (test vsqe=918) 322 mg/dl 225-434 [id number] 23:33:00* Test Item Value Reference Range Comments PARTIAL THROMBOPLASTIN TIME (BEAKER) (test uhru=141) 29.6 seconds 22.5-36.0 PROTHROMBIN [id number] 23:32:00* Test Item Value Reference Range Comments PROTIME (BEAKER) (test spqr=329) 14.5 seconds 11.7-14.7 INR (BEAKER) (test kfhw=522) 1.1 <=5.9 RECOMMENDED COUMADIN/WARFARIN INR THERAPY RANGESSTANDARD DOSE: 2.0 - 3.0 Inclu connie: PROPHYLAXIS for venous thrombosis, systemic embolization; TREATMENT for lupis ous thrombosis and/or pulmonary embolus.HIGH RISK: Target INR is 2.5-3.5 for pat ients with mechanical heart valves.PLATELET [id number] 23:22:00* Test Item Value Reference Range Comments PLATELET COUNT (BEAKER) (test runk=019) 190 K/CU MM 150-450 [id number] 12:30:00* Test Item Value Reference Range Comments PARTIAL THROMBOPLASTIN TIME (BEAKER) (test cqzp=406) 71.2 seconds 22.5-36.0 [id number] 05:59:00* Test Item Value Reference Range Comments MAGNESIUM (BEAKER) (test drou=624) 2.3 mg/dL 1.6-2.6 BASIC METABOLIC [id number] 05:59:00* Test Item Value Reference Range Comments SODIUM (BEAKER) (test hjcb=248) 131 meq/L 136-145 POTASSIUM (BEAKER) (test ttwf=246) 3.8 meq/L 3.5-5.1 CHLORIDE (BEAKER) (test wkgt=521) 102 meq/L 98-107 CO2 (BEAKER) (test lqwc=354) 22 meq/L 22-29 BLOOD UREA NITROGEN (BEAKER) (test gyus=378) 29 mg/dL 7-21 CREATININE (BEAKER) (test ltsu=108) 1.46 mg/dL 0.57-1.25 GLUCOSE RANDOM (BEAKER) (test izao=566) 115 mg/dL 70-105 CALCIUM (BEAKER) (test hydt=783) 9.2 mg/dL 8.4-10.2 EGFR (BEAKER) (test yidf=3616) 38 mL/min/1.73 sq m ESTIMATED GFR IS NOT ACCURATE CREATININE CLEARANCE IN PREDICTING GLOMERULAR FILTRATION RATE. ESTIMATED GFR IS NOT APPLICABLE FOR DIALYSIS PATIENTS. [id number] 05:57:00* Test Item Value Reference Range Comments PARTIAL THROMBOPLASTIN TIME (BEAKER) (test yfig=303) 73.0 seconds 22.5-36.0 CBC (HEMOGRAM ONLY)2018-01-25 05:39:00* Test Item Value Reference Range Comments WHITE BLOOD CELL COUNT (BEAKER) (test dpvm=567) 7.3 K/ L 3.5-10.5 RED BLOOD CELL COUNT (BEAKER) (test lygw=874) 3.90 M/ L 3.93-5.22 HEMOGLOBIN (BEAKER) (test hjlb=777) 11.0 GM/DL 11.2-15.7 HEMATOCRIT (BEAKER) (test bdoz=670) 34.2 % 34.1-44.9 MEAN CORPUSCULAR VOLUME (BEAKER) (test tulx=799) 87.7 fL 79.4-94.8 MEAN CORPUSCULAR HEMOGLOBIN (BEAKER) (test ynmw=612) 28.2 pg 25.6-32.2 MEAN CORPUSCULAR HEMOGLOBIN CONC (BEAKER) (test pvks=355) 32.2 GM/DL 32.2-35.5 RED CELL DISTRIBUTION WIDTH (BEAKER) (test ehae=202) 13.6 % 11.7-14.4 PLATELET COUNT (BEAKER) (test ujuh=796) 203 K/CU MM 150-450 MEAN PLATELET VOLUME (BEAKER) (test ibdx=195) 10.1 fL 9.4-12.3 NUCLEATED RED BLOOD CELLS (BEAKER) (test xvxd=182) 0 /100 WBC 0-0 [id number] 22:59:00* Test Item Value Reference Range Comments PARTIAL THROMBOPLASTIN TIME (BEAKER) (test pfbn=140) 42.3 seconds 22.5-36.0 [id number] 16:48:00* Test Item Value Reference Range Comments PARTIAL THROMBOPLASTIN TIME (BEAKER) (test khce=100) 27.0 seconds 22.5-36.0 [id number] 07:06:00* Test Item Value Reference Range Comments MAGNESIUM (BEAKER) (test zxld=582) 1.9 mg/dL 1.6-2.6 BASIC METABOLIC [id number] 07:06:00* Test Item Value Reference Range Comments SODIUM (BEAKER) (test qide=190) 137 meq/L 136-145 POTASSIUM (BEAKER) (test udqn=467) 3.7 meq/L 3.5-5.1 CHLORIDE (BEAKER) (test schn=359) 107 meq/L 98-107 CO2 (BEAKER) (test iiuj=920) 20 meq/L 22-29 BLOOD UREA NITROGEN (BEAKER) (test vstz=477) 27 mg/dL 7-21 CREATININE (BEAKER) (test pxtd=387) 1.27 mg/dL 0.57-1.25 GLUCOSE RANDOM (BEAKER) (test tgol=945) 86 mg/dL 70-105 CALCIUM (BEAKER) (test zftj=791) 8.1 mg/dL 8.4-10.2 EGFR (BEAKER) (test fjlg=6667) 44 mL/min/1.73 sq m ESTIMATED GFR IS NOT ACCURATE CREATININE CLEARANCE IN PREDICTING GLOMERULAR FILTRATION RATE. ESTIMATED GFR IS NOT APPLICABLE FOR DIALYSIS PATIENTS. CBC (HEMOGRAM ONLY)2018-01-24 04:51:00* Test Item Value Reference Range Comments WHITE BLOOD CELL COUNT (BEAKER) (test hscl=013) 5.9 K/ L 3.5-10.5 RED BLOOD CELL COUNT (BEAKER) (test jndt=094) 3.89 M/ L 3.93-5.22 HEMOGLOBIN (BEAKER) (test zwsb=498) 10.9 GM/DL 11.2-15.7 HEMATOCRIT (BEAKER) (test psci=904) 33.7 % 34.1-44.9 MEAN CORPUSCULAR VOLUME (BEAKER) (test yntj=478) 86.6 fL 79.4-94.8 MEAN CORPUSCULAR HEMOGLOBIN (BEAKER) (test bidx=636) 28.0 pg 25.6-32.2 MEAN CORPUSCULAR HEMOGLOBIN CONC (BEAKER) (test ndyw=722) 32.3 GM/DL 32.2-35.5 RED CELL DISTRIBUTION WIDTH (BEAKER) (test jrgn=893) 13.5 % 11.7-14.4 PLATELET COUNT (BEAKER) (test bkcc=744) 191 K/CU MM 150-450 MEAN PLATELET VOLUME (BEAKER) (test fagi=788) 10.4 fL 9.4-12.3 NUCLEATED RED BLOOD CELLS (BEAKER) (test gfxq=061) 0 /100 WBC 0-0 CTA, CHEST, ABDOMEN - PELVIS, FOR [id number] 17:21:00Reason for exam:- >TAVR protocolAddendum BeginsREPORT STATUS:A Addendum: I agree with the previously described non vascular findings. Signed: Neli Doradoepmarcos Verified Date/Time: 01/23/2018 17:21:53 Reading Location: [facility] P048 Angio Body Reading RoomAddendum EndsFINAL REPORT CT angiography of the thoracoabdominal aorta and pelvic arteries, 23 January 2018 INDICATION: This is a 52 years old female, with a diagnosis of aortic valve disease, presents for preprocedure TAVR assessment. This study is performed in attempt to avoid invasive procedure. TECHNIQUE: Spiral acquisition before and during intravenous contrast administration using a Clark multidetector CT scanner. Images were obtained before and during the dynamic passage of intravenous contrast material. Multi-planar 3-D volume-rendering reconstruction was performed using an independent workstation interactively by the interpreting physician as well as the 3-D specialist for optimal visualization of the thoracoabdominal aorta, the pelvic arteries as well as its proximal branches. Please refer to the contrast sheet scanned in the EPIC system for the amount and route of contrast given. This exam was performed according to our departmental dose-optimisation programme, which includes automated exposure control, adjustment of the mA and/or kV according to patient size and/or use of iterative reconstruction technique. Dose modulation, iterative reconstruction, and/or weight based adjustment of the mA/kV was utilized to reduce the radiation dose to as low as reasonably achievable. FINDINGS: VASCULAR: The central pulmonary artery is normal in calibre. The cardiac chamber demonstrate normal atrioventricular and ventriculoarterial concordance, systemic and pulmonary venous return. The left ventricle appears to be minimally prominent in the mid diastolic data set. Left atrial prominence is identified. Coronary artery orig ins are normal and scattered coronary artery calcification is identified. There could be vascular stents seen in the mid LAD. The right coronary artery seen to be widely patent. The left main coronary artery is also widely patent. Atheroscl erotic plaque is identified in the proximal LAD. No mitral annular calcification is seen. From the available data, it appears patient has aortic regurgitation r ather than aortic stenosis and during systole, the aortic valve is wide open. Pr ominence is seen in the aortic root with dimensions as described below. A vascul ar graft is seen in the ascending thoracic aorta that is widely patent with no a nastomotic stenosis or extravasation of contrast identified. 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 These arteries are well enhanced by contrast. The true lumen, taken at the proximal left subclavian artery measures approximately 1.2 x 0.9 mm, and more distally at image 14, it measures approximately at least 6 mm. The true lumen of the proximal right subclavian artery, image 32, measure 5.8 x 10.3 mm in diameter, and at image 18 the right subclavian artery measures at least 5 mm in diameter. Patient has a residual dissection identified as desc ribed above, from the transverse arch, into the descending thoracic aorta into t he abdominal aorta, and spared the right pelvic artery, involving the left commo n iliac and the proximal left external iliac arteries. The pelvic arteries, bila terally, are widely patent with no significant atherosclerosis identified. The t rue lumen is a smaller lumen in the abdominal aorta and the dissection involves the coeliac axis, and the true lumen gives rise to the SMA and the right coronar y artery, and the false lumen gives rise to three small left renal arteries. The mesenteric and renal arteries are well enhanced by contrast, however, the left renal arteries are very tiny in size. Dimensions that may be helpful for TAVR as follows: The aortic root is [place] no calcification identified. The major and m inor aortic annulus diameter measures 27.1 and 21.6 mm, respectively. The aortic annulus perimeter measured 79 mm and the cross-sectional area measures 490 mm2. The aortic annulus diameter at the traditional LVOT and coronal LVOT measures 2 4.7 and 21.1 mm, respectively. For reference purpose, per [employer] S3 brochure, r ecommendation are as follows: CT area between 273 to 345 mm2 (20 mm valve); 338 to 430 mm2 (23 mm valve); 430 to 546 mm2 (26 mm valve); 540 to 683 mm2 (29 mm va lve). For reference purpose, per [employer] brochure, recommendation are as follows: CT perimeter between 56.5-62.8 mm (23 mm valve); 62.8-72.3 mm (26 mm valve); 72.3-81.7 mm (29 mm valve); and 81.7-94.2. mm (34 mm valve). No calcif ication is seen at the level of the aortic valve. No aortic stenosis is apprecia emily in this current examination. The sinus of Valsalva height, RCC (diastole): 1 5.7 mmThe sinus of Valsalva height, LCC (diastole): 14.8 mm The sinus of Valsalv a diameter, RCC (diastole): 39.9 mmThe sinus of Valsalva diameter, LCC (diastole ): 37.9 mmThe sinus of Valsalva diameter, NCC (diastole): 36.6 mm The sinotubula r junction measures approximately 31.9 x 27.7 mm. The aortic root angulation imelda sures 36.6 degrees. The angle of delivery is approximately HOLGU[place] 6 CAU 33. The mi nimal and perpendicular abdominal aortic diameter measure 7.5 and 14.3, respecti vely, at image 332, in the true lumen of the dissection. There is no evidence of thoracoabdominal aortic aneurysm or stent placement present. The minimum and the perpendicular RIGHT common iliac artery measures 9.6 and 10.3 mm, respectiv galen with mild tortuosity and no calcific atherosclerosis present. The minimum a nd the perpendicular RIGHT external iliac artery measures 5.2 and 6.0 mm, respec tively with fsun-xj-sruuevla tortuosity and no calcific atherosclerosis present . The minimum and the perpendicular RIGHT femoral artery measures 7.3 and 7.6 mm , respectively with no tortuosity and no calcific atherosclerosis present. The minimum and the perpendicular left common iliac artery measures 4.5 and 10.2 mm, respectively with mild tortuosity and no calcific atherosclerosis present. The minimum and the perpendicular left external iliac artery measures 6.4 and 6.6 mm, respectively with no tortuosity and no calcific atherosclerosis present. T he minimum and the perpendicular left femoral artery measures 7.8 and 8.9 mm, re spectively with no tortuosity and no calcific atherosclerosis present. NONVASC ULAR: The visualised thyroid gland appears unremarkable. The chest wall and med iastinum is remarkable for prior median sternotomy. The sternum is at a distance to the ascending aortic graft, for example image 115, it is at least 1.9 cm. The right ventricular free wall is in close proximity to the sternal wire, at image 150 it is 4 mm behind the sternal wire. Tiny calcification is identified in the left breast at image 101, likely incidental finding. CT is not optimised in the assessment of breast structures. No significant pericardial effusion is seen and no significant adenopathy is identified. In the lung windows, no obvious end obronchial lesion is seen and no pleural effusion is identified. Minimal depende nt changes are seen in the lung bases, especially in the right base. Overall, no suspicious pulmonary nodule is identified. In the abdomen, the liver and spleen appears unremarkable. The liver edge is smooth. No abnormal enhancing structure is identified. The adrenal glands are not enlarged. The pancreas appears unrema rkable. The gallbladder has no gross abnormality identified. The right kidney is normal in size and shape. No hydronephrosis or perirenal fluid collection is se en. A large cyst is identified in the left kidney, at image 319, it measure at l east 7.8 x 7.1 cm in diameter. By visual estimation, the right kidney enhances b diana than the left kidney. Bowel is not well assessed by CT angiography as ente darron contrast is not given. No obvious bowel dilation is identified. Scattered co lonic diverticulum is seen. The uterus is present. The bladder appears unremarka ble. Small lymph nodes are seen in both groins, considered nonspecific in nature . No significant retroperitoneal adenopathy is seen. No free air or free fluid s een in the abdomen and pelvis. In the bony windows, no acute bony pathology is s een. Some degenerative changes are noted. CONCLUSIONS: 1. Patient has a diagnos is of aortic valve disease, likely aortic regurgitation. No aortic valvular calc ification is seen and no mitral annular calcifications identified. The aortic ro ot is [place] and ectatic. A vascular graft is seen in the ascending thoracic ao rta that is widely patent. 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 The appearance of the dissection appears to be chronic in nature. Correlate clinically. Both t he true and false lumen are enhanced by contrast. Diamond Mounter dimension of th e mid descending thoracic aorta 3.2 cm at that is within normal reference range and the abdominal aorta is normal in calibre. Dimensions that may be helpful for TAVR as described above. The sinotubular junction measures approximately 4.0 x 3.8 cm by multiplanar reformation. 2. No acute pulmonary pathology is identifie d. 3. Normal coronary artery origins. Coronary atherosclerosis identified. Prob able stent is seen in the mid LAD. 4. Other findings as described above. 5. An addendum will be dictated by the [employer] Developer Radiologist regarding the nonvascul ar findings. 6. Major findings were discussed with Dr. Wells at the time of dic tation. Signed: Clem Perez MDReport Verified Date/Time: 01/23/2018 16:39: 01 Reading Location: [place] [address] Cardiology MRI [id number] 11:58:00* Test Item Value Reference Range Comments MAGNESIUM (BEAKER) (test ohll=012) 2.2 mg/dL 1.6-2.6 Specimen slightly hemolyzed BASIC METABOLIC [id number] 10:29:00* Test Item Value Reference Range Comments SODIUM (BEAKER) (test hylj=876) 134 meq/L 136-145 POTASSIUM (BEAKER) (test osmy=895) 3.9 meq/L 3.5-5.1 Specimen slightly hemolyzed CHLORIDE (BEAKER) (test czyl=163) 101 meq/L 98-107 CO2 (BEAKER) (test dfqm=020) 22 meq/L 22-29 BLOOD UREA NITROGEN (BEAKER) (test vizy=904) 29 mg/dL 7-21 CREATININE (BEAKER) (test ehjd=378) 1.21 mg/dL 0.57-1.25 Specimen slightly hemolyzed GLUCOSE RANDOM (BEAKER) (test zjor=098) 87 mg/dL 70-105 CALCIUM (BEAKER) (test weip=285) 9.0 mg/dL 8.4-10.2 EGFR (BEAKER) (test ouar=1628) 47 mL/min/1.73 sq m ESTIMATED GFR IS NOT ACCURATE CREATININE CLEARANCE IN PREDICTING GLOMERULAR FILTRATION RATE. ESTIMATED GFR IS NOT APPLICABLE FOR DIALYSIS PATIENTS. [id number] 10:22:00* Test Item Value Reference Range Comments PHOSPHORUS (BEAKER) (test wjij=121) 4.0 mg/dL 2.3-4.7 Specimen slightly hemolyzed CBC W/PLT COUNT & AUTO [id number] 07:41:00* Test Item Value Reference Range Comments WHITE BLOOD CELL COUNT (BEAKER) (test sqsj=238) 6.2 K/ L 3.5-10.5 RED BLOOD CELL COUNT (BEAKER) (test pkgx=535) 3.77 M/ L 3.93-5.22 HEMOGLOBIN (BEAKER) (test mtqi=747) 10.7 GM/DL 11.2-15.7 HEMATOCRIT (BEAKER) (test yudu=007) 32.8 % 34.1-44.9 MEAN CORPUSCULAR VOLUME (BEAKER) (test ixsj=799) 87.0 fL 79.4-94.8 MEAN CORPUSCULAR HEMOGLOBIN (BEAKER) (test ocpw=329) 28.4 pg 25.6-32.2 MEAN CORPUSCULAR HEMOGLOBIN CONC (BEAKER) (test wqjn=762) 32.6 GM/DL 32.2-35.5 RED CELL DISTRIBUTION WIDTH (BEAKER) (test ifhh=363) 13.4 % 11.7-14.4 PLATELET COUNT (BEAKER) (test race=826) 192 K/CU MM 150-450 MEAN PLATELET VOLUME (BEAKER) (test sjlq=262) 10.3 fL 9.4-12.3 NUCLEATED RED BLOOD CELLS (BEAKER) (test eenl=426) 0 /100 WBC 0-0 NEUTROPHILS RELATIVE PERCENT (BEAKER) (test kwxk=710) 46 % LYMPHOCYTES RELATIVE PERCENT (BEAKER) (test hkrx=580) 40 % MONOCYTES RELATIVE PERCENT (BEAKER) (test aeaz=206) 8 % EOSINOPHILS RELATIVE PERCENT (BEAKER) (test ebzz=224) 6 % BASOPHILS RELATIVE PERCENT (BEAKER) (test gsjm=198) 0 % NEUTROPHILS ABSOLUTE COUNT (BEAKER) (test ioxy=650) 2.80 K/ L 1.56-6.13 LYMPHOCYTES ABSOLUTE COUNT (BEAKER) (test vonn=535) 2.44 K/ L 1.18-3.74 MONOCYTES ABSOLUTE COUNT (BEAKER) (test vgyc=912) 0.49 K/ L 0.24-0.36 EOSINOPHILS ABSOLUTE COUNT (BEAKER) (test chet=082) 0.39 K/ L 0.04-0.36 BASOPHILS ABSOLUTE COUNT (BEAKER) (test ygip=455) 0.02 K/ L 0.01-0.08 IMMATURE GRANULOCYTES-RELATIVE PERCENT (BEAKER) (test tolj=8593) 0 % 0-1 [id number] 06:39:00* Test Item Value Reference Range Comments PHOSPHORUS (BEAKER) (test azzz=568) 3.5 mg/dL 2.3-4.7 [id number] 06:39:00* Test Item Value Reference Range Comments MAGNESIUM (BEAKER) (test khxp=055) 2.0 mg/dL 1.6-2.6 BASIC METABOLIC [id number] 06:39:00* Test Item Value Reference Range Comments SODIUM (BEAKER) (test rfze=886) 142 meq/L 136-145 POTASSIUM (BEAKER) (test exve=319) 3.2 meq/L 3.5-5.1 CHLORIDE (BEAKER) (test sasb=265) 111 meq/L 98-107 CO2 (BEAKER) (test ksje=206) 22 meq/L 22-29 BLOOD UREA NITROGEN (BEAKER) (test vlmf=294) 28 mg/dL 7-21 CREATININE (BEAKER) (test zvnq=363) 1.28 mg/dL 0.57-1.25 GLUCOSE RANDOM (BEAKER) (test tsym=087) 86 mg/dL 70-105 CALCIUM (BEAKER) (test nbkn=663) 8.3 mg/dL 8.4-10.2 EGFR (BEAKER) (test jdze=3877) 44 mL/min/1.73 sq m ESTIMATED GFR IS NOT ACCURATE CREATININE CLEARANCE IN PREDICTING GLOMERULAR FILTRATION RATE. ESTIMATED GFR IS NOT APPLICABLE FOR DIALYSIS PATIENTS. CBC W/PLT COUNT & AUTO [id number] 06:02:00* Test Item Value Reference Range Comments WHITE BLOOD CELL COUNT (BEAKER) (test wxfi=591) 6.4 K/ L 3.5-10.5 RED BLOOD CELL COUNT (BEAKER) (test fdgk=940) 4.08 M/ L 3.93-5.22 HEMOGLOBIN (BEAKER) (test ombg=234) 11.4 GM/DL 11.2-15.7 HEMATOCRIT (BEAKER) (test jnnz=789) 35.7 % 34.1-44.9 MEAN CORPUSCULAR VOLUME (BEAKER) (test islp=345) 87.5 fL 79.4-94.8 MEAN CORPUSCULAR HEMOGLOBIN (BEAKER) (test ktcr=535) 27.9 pg 25.6-32.2 MEAN CORPUSCULAR HEMOGLOBIN CONC (BEAKER) (test sbhq=664) 31.9 GM/DL 32.2-35.5 RED CELL DISTRIBUTION WIDTH (BEAKER) (test tdlj=072) 13.6 % 11.7-14.4 PLATELET COUNT (BEAKER) (test crsg=407) 191 K/CU MM 150-450 MEAN PLATELET VOLUME (BEAKER) (test xfrk=283) 10.4 fL 9.4-12.3 NUCLEATED RED BLOOD CELLS (BEAKER) (test hwpd=705) 0 /100 WBC 0-0 NEUTROPHILS RELATIVE PERCENT (BEAKER) (test iuwj=348) 42 % LYMPHOCYTES RELATIVE PERCENT (BEAKER) (test wyqt=009) 42 % MONOCYTES RELATIVE PERCENT (BEAKER) (test lnaz=197) 9 % EOSINOPHILS RELATIVE PERCENT (BEAKER) (test vpmo=795) 6 % BASOPHILS RELATIVE PERCENT (BEAKER) (test vpkt=120) 1 % NEUTROPHILS ABSOLUTE COUNT (BEAKER) (test efnl=013) 2.71 K/ L 1.56-6.13 LYMPHOCYTES ABSOLUTE COUNT (BEAKER) (test onzn=716) 2.71 K/ L 1.18-3.74 MONOCYTES ABSOLUTE COUNT (BEAKER) (test nify=787) 0.57 K/ L 0.24-0.36 EOSINOPHILS ABSOLUTE COUNT (BEAKER) (test zmlf=697) 0.41 K/ L 0.04-0.36 BASOPHILS ABSOLUTE COUNT (BEAKER) (test fabt=631) 0.03 K/ L 0.01-0.08 IMMATURE GRANULOCYTES-RELATIVE PERCENT (BEAKER) (test tjgj=4359) 0 % 0-1 CBC W/PLT COUNT & AUTO [id number] 07:26:00* Test Item Value Reference Range Comments WHITE BLOOD CELL COUNT (BEAKER) (test sxei=585) 5.6 K/ L 3.5-10.5 RED BLOOD CELL COUNT (BEAKER) (test duhy=469) 4.02 M/ L 3.93-5.22 HEMOGLOBIN (BEAKER) (test blhh=643) 11.3 GM/DL 11.2-15.7 HEMATOCRIT (BEAKER) (test spho=083) 34.5 % 34.1-44.9 MEAN CORPUSCULAR VOLUME (BEAKER) (test ajjh=904) 85.8 fL 79.4-94.8 MEAN CORPUSCULAR HEMOGLOBIN (BEAKER) (test muww=668) 28.1 pg 25.6-32.2 MEAN CORPUSCULAR HEMOGLOBIN CONC (BEAKER) (test rghe=738) 32.8 GM/DL 32.2-35.5 RED CELL DISTRIBUTION WIDTH (BEAKER) (test zwyy=097) 13.6 % 11.7-14.4 PLATELET COUNT (BEAKER) (test grts=237) 222 K/CU MM 150-450 MEAN PLATELET VOLUME (BEAKER) (test hfak=908) 10.4 fL 9.4-12.3 NUCLEATED RED BLOOD CELLS (BEAKER) (test rjsp=291) 0 /100 WBC 0-0 NEUTROPHILS RELATIVE PERCENT (BEAKER) (test yktl=149) 39 % LYMPHOCYTES RELATIVE PERCENT (BEAKER) (test pkro=588) 46 % MONOCYTES RELATIVE PERCENT (BEAKER) (test yoxt=188) 8 % EOSINOPHILS RELATIVE PERCENT (BEAKER) (test gvwf=205) 6 % BASOPHILS RELATIVE PERCENT (BEAKER) (test ldkw=094) 1 % NEUTROPHILS ABSOLUTE COUNT (BEAKER) (test mdhd=551) 2.17 K/ L 1.56-6.13 LYMPHOCYTES ABSOLUTE COUNT (BEAKER) (test evfk=573) 2.56 K/ L 1.18-3.74 MONOCYTES ABSOLUTE COUNT (BEAKER) (test mfnx=007) 0.45 K/ L 0.24-0.36 EOSINOPHILS ABSOLUTE COUNT (BEAKER) (test lzzg=277) 0.35 K/ L 0.04-0.36 BASOPHILS ABSOLUTE COUNT (BEAKER) (test pbkn=922) 0.03 K/ L 0.01-0.08 IMMATURE GRANULOCYTES-RELATIVE PERCENT (BEAKER) (test oxbk=2651) 0 % 0-1 (MANUAL DIFFERENTIAL)2018-01-21 07:26:00* Test Item Value Reference Range Comments TOTAL COUNTED (BEAKER) (test yfst=1513) [id number] 07:22:00* Test Item Value Reference Range Comments MAGNESIUM (BEAKER) (test akrc=242) 2.1 mg/dL 1.6-2.6 BASIC METABOLIC [id number] 07:22:00* Test Item Value Reference Range Comments SODIUM (BEAKER) (test ptim=154) 140 meq/L 136-145 POTASSIUM (BEAKER) (test weqc=183) 3.4 meq/L 3.5-5.1 CHLORIDE (BEAKER) (test ueaa=237) 106 meq/L 98-107 CO2 (BEAKER) (test tqig=636) 25 meq/L 22-29 BLOOD UREA NITROGEN (BEAKER) (test ymzp=509) 25 mg/dL 7-21 CREATININE (BEAKER) (test oknx=214) 1.35 mg/dL 0.57-1.25 GLUCOSE RANDOM (BEAKER) (test kfav=581) 93 mg/dL 70-105 CALCIUM (BEAKER) (test qmhl=347) 9.4 mg/dL 8.4-10.2 EGFR (BEAKER) (test gjuo=8442) 41 mL/min/1.73 sq m ESTIMATED GFR IS NOT ACCURATE CREATININE CLEARANCE IN PREDICTING GLOMERULAR FILTRATION RATE. ESTIMATED GFR IS NOT APPLICABLE FOR DIALYSIS PATIENTS. [id number] 07:21:00* Test Item Value Reference Range Comments PHOSPHORUS (BEAKER) (test lqzd=153) 4.0 mg/dL 2.3-4.7 [id number] 09:24:00* Test Item Value Reference Range Comments PHOSPHORUS (BEAKER) (test qaqm=533) 4.6 mg/dL 2.3-4.7 [id number] 09:24:00* Test Item Value Reference Range Comments MAGNESIUM (BEAKER) (test ecsu=564) 2.5 mg/dL 1.6-2.6 BASIC METABOLIC [id number] 09:24:00* Test Item Value Reference Range Comments SODIUM (BEAKER) (test xhzw=661) 140 meq/L 136-145 POTASSIUM (BEAKER) (test wtvk=530) 3.6 meq/L 3.5-5.1 CHLORIDE (BEAKER) (test qelq=450) 107 meq/L 98-107 CO2 (BEAKER) (test dhqa=701) 23 meq/L 22-29 BLOOD UREA NITROGEN (BEAKER) (test dvdq=567) 26 mg/dL 7-21 CREATININE (BEAKER) (test riyf=076) 1.34 mg/dL 0.57-1.25 GLUCOSE RANDOM (BEAKER) (test twpa=922) 82 mg/dL 70-105 CALCIUM (BEAKER) (test nbdf=323) 9.0 mg/dL 8.4-10.2 EGFR (BEAKER) (test lwpi=7909) 42 mL/min/1.73 sq m ESTIMATED GFR IS NOT ACCURATE CREATININE CLEARANCE IN PREDICTING GLOMERULAR FILTRATION RATE. ESTIMATED GFR IS NOT APPLICABLE FOR DIALYSIS PATIENTS. CREATINE KINASE (CK), TOTAL AND [id number] 09:24:00* Test Item Value Reference Range Comments CREATINE KINASE TOTAL (BEAKER) (test mkdy=767) 69 U/L 29-200 CREATINE KINASE-MB (BEAKER) (test hoto=961) 1.1 ng/mL 0.0-6.6 CREATINE KINASE-MB INDEX (BEAKER) (test jouf=311) 1.6 % CK-MB Reference Range:<6.7 Normal6.7-10.0 Borderline>10.0 Abnormal TROPONIN [id number] 08:46:00* Test Item Value Reference Range Comments TROPONIN I (BEAKER) (test liox=524) 0.01 ng/mL 0.00-0.03 Troponin I (TnI) levels must be interpreted in the context of the presenting sym ptoms and the clinical findings. Elevated TnI levels indicate myocardial damage, but are not specific for ischemic heart disease. Elevated TnI levels are seen in patients with other cardiac conditions (including myocarditis and congestive h eart failure), and slight TnI elevations occur in patients with other conditions , including sepsis, renal failure, acidosis, acute neurological disease, and per sistent tachyarrhythmia.CBC W/PLT COUNT & AUTO [id number] 05:51:00* Test Item Value Reference Range Comments WHITE BLOOD CELL COUNT (BEAKER) (test qqbv=218) 6.3 K/ L 3.5-10.5 RED BLOOD CELL COUNT (BEAKER) (test otbv=249) 3.82 M/ L 3.93-5.22 HEMOGLOBIN (BEAKER) (test venc=378) 10.9 GM/DL 11.2-15.7 HEMATOCRIT (BEAKER) (test xctt=254) 33.2 % 34.1-44.9 MEAN CORPUSCULAR VOLUME (BEAKER) (test pggu=059) 86.9 fL 79.4-94.8 MEAN CORPUSCULAR HEMOGLOBIN (BEAKER) (test ayuv=002) 28.5 pg 25.6-32.2 MEAN CORPUSCULAR HEMOGLOBIN CONC (BEAKER) (test ouea=924) 32.8 GM/DL 32.2-35.5 RED CELL DISTRIBUTION WIDTH (BEAKER) (test kbzb=206) 13.8 % 11.7-14.4 PLATELET COUNT (BEAKER) (test gfnv=131) 199 K/CU MM 150-450 MEAN PLATELET VOLUME (BEAKER) (test skyq=272) 10.5 fL 9.4-12.3 NUCLEATED RED BLOOD CELLS (BEAKER) (test iqgj=288) 0 /100 WBC 0-0 NEUTROPHILS RELATIVE PERCENT (BEAKER) (test wjdm=941) 46 % LYMPHOCYTES RELATIVE PERCENT (BEAKER) (test utls=331) 40 % MONOCYTES RELATIVE PERCENT (BEAKER) (test hmpk=253) 8 % EOSINOPHILS RELATIVE PERCENT (BEAKER) (test niav=463) 6 % BASOPHILS RELATIVE PERCENT (BEAKER) (test atgx=224) 0 % NEUTROPHILS ABSOLUTE COUNT (BEAKER) (test iifz=914) 2.87 K/ L 1.56-6.13 LYMPHOCYTES ABSOLUTE COUNT (BEAKER) (test wuko=729) 2.53 K/ L 1.18-3.74 MONOCYTES ABSOLUTE COUNT (BEAKER) (test qquh=571) 0.53 K/ L 0.24-0.36 EOSINOPHILS ABSOLUTE COUNT (BEAKER) (test icoy=039) 0.35 K/ L 0.04-0.36 BASOPHILS ABSOLUTE COUNT (BEAKER) (test swaj=908) 0.02 K/ L 0.01-0.08 IMMATURE GRANULOCYTES-RELATIVE PERCENT (BEAKER) (test nrqj=6671) 0 % 0-1 (MANUAL DIFFERENTIAL)2018-01-19 22:58:00* Test Item Value Reference Range Comments NEUTROPHILS - REL (DIFF) (BEAKER) (test reyo=3920) 40 % LYMPHOCYTES - REL (DIFF) (BEAKER) (test gfgo=5511) 52 % MONOCYTES - REL (DIFF) (BEAKER) (test zkcq=4580) 5 % EOSINOPHILS - REL (DIFF) (BEAKER) (test ucwo=7665) 3 % NEUTROPHILS - ABS (DIFF) (BEAKER) (test rywz=4494) 2.92 K/ L 1.80-8.00 LYMPHOCYTES - ABS (DIFF) (BEAKER) (test ukwu=4228) 3.80 K/ L 1.48-4.50 MONOCYTES - ABS (DIFF) (BEAKER) (test sxsv=8169) 0.37 K/ L 0.00-1.30 EOSINOPHILS - ABS (DIFF) (BEAKER) (test wcfh=6908) 0.22 K/ L 0.00-0.50 TOTAL COUNTED (BEAKER) (test yzxf=9686) 100 PLT MORPHOLOGY (BEAKER) (test riwp=635) Normal ATYPICAL LYMPHS(BEAKER) (test bdan=9615) Present ELLIPTOCYTES (BEAKER) (test zggs=883) 1+ few CREATINE KINASE (CK), TOTAL AND [id number] 22:08:00* Test Item Value Reference Range Comments CREATINE KINASE TOTAL (BEAKER) (test joma=280) 89 U/L 29-200 CREATINE KINASE-MB (BEAKER) (test krxu=594) 1.4 ng/mL 0.0-6.6 CREATINE KINASE-MB INDEX (BEAKER) (test zyly=601) 1.6 % CK-MB Reference Range:<6.7 Normal6.7-10.0 Borderline>10.0 Abnormal TROPONIN [id number] 22:08:00* Test Item Value Reference Range Comments TROPONIN I (BEAKER) (test ebnk=800) 0.01 ng/mL 0.00-0.03 Troponin I (TnI) levels must be interpreted in the context of the presenting sym ptoms and the clinical findings. Elevated TnI levels indicate myocardial damage, but are not specific for ischemic heart disease. Elevated TnI levels are seen in patients with other cardiac conditions (including myocarditis and congestive h eart failure), and slight TnI elevations occur in patients with other conditions , including sepsis, renal failure, acidosis, acute neurological disease, and per sistent tachyarrhythmia.PROTHROMBIN TIME/[id number] 22:06:00* Test Item Value Reference Range Comments PROTIME (BEAKER) (test eury=891) 14.8 seconds 11.7-14.7 INR (BEAKER) (test oqmz=632) 1.2 <=5.9 RECOMMENDED COUMADIN/WARFARIN INR THERAPY RANGESSTANDARD DOSE: 2.0 - 3.0 Inclu connie: PROPHYLAXIS for venous thrombosis, systemic embolization; TREATMENT for lupis ous thrombosis and/or pulmonary embolus.HIGH RISK: Target INR is 2.5-3.5 for pat ients with mechanical heart valves.B-TYPE NATRIURETIC FACTOR (BNP)2018-01-19 22:04:00* Test Item Value Reference Range Comments B-TYPE NATRIURETIC PEPTIDE (BEAKER) (test oxpj=028) 388 pg/mL 0-100 [id number] 22:01:00* Test Item Value Reference Range Comments PHOSPHORUS (BEAKER) (test qoxj=020) 4.0 mg/dL 2.3-4.7 [id number] 22:01:00* Test Item Value Reference Range Comments MAGNESIUM (BEAKER) (test ensm=769) 2.5 mg/dL 1.6-2.6 COMPREHENSIVE METABOLIC [id number] 22:01:00* Test Item Value Reference Range Comments TOTAL PROTEIN (BEAKER) (test pbfs=823) 7.4 gm/dL 6.0-8.3 ALBUMIN (BEAKER) (test stkq=0802) 4.5 g/dL 3.5-5.0 ALKALINE PHOSPHATASE (BEAKER) (test kcpk=811) 78 U/L 40-150 BILIRUBIN TOTAL (BEAKER) (test fivm=891) 0.5 mg/dL 0.2-1.2 SODIUM (BEAKER) (test iscg=842) 141 meq/L 136-145 POTASSIUM (BEAKER) (test tgoh=349) 3.6 meq/L 3.5-5.1 CHLORIDE (BEAKER) (test cyim=726) 107 meq/L 98-107 CO2 (BEAKER) (test uecu=050) 22 meq/L 22-29 BLOOD UREA NITROGEN (BEAKER) (test nndu=319) 23 mg/dL 7-21 CREATININE (BEAKER) (test xchw=160) 1.25 mg/dL 0.57-1.25 GLUCOSE RANDOM (BEAKER) (test eyvg=472) 84 mg/dL 70-105 CALCIUM (BEAKER) (test cygx=820) 9.4 mg/dL 8.4-10.2 AST (SGOT) (BEAKER) (test xzdo=784) 24 U/L 5-34 ALT (SGPT) (BEAKER) (test qtvr=945) 29 U/L 6-55 EGFR (BEAKER) (test ozxc=5959) 45 mL/min/1.73 sq m ESTIMATED GFR IS NOT ACCURATE CREATININE CLEARANCE IN PREDICTING GLOMERULAR FILTRATION RATE. ESTIMATED GFR IS NOT APPLICABLE FOR DIALYSIS PATIENTS. CBC W/PLT COUNT & AUTO [id number] 21:42:00* Test Item Value Reference Range Comments WHITE BLOOD CELL COUNT (BEAKER) (test omdd=649) 7.3 K/ L 3.5-10.5 RED BLOOD CELL COUNT (BEAKER) (test bkge=367) 4.14 M/ L 3.93-5.22 HEMOGLOBIN (BEAKER) (test auen=692) 11.9 GM/DL 11.2-15.7 HEMATOCRIT (BEAKER) (test krdx=228) 35.6 % 34.1-44.9 MEAN CORPUSCULAR VOLUME (BEAKER) (test gtgl=400) 86.0 fL 79.4-94.8 MEAN CORPUSCULAR HEMOGLOBIN (BEAKER) (test most=495) 28.7 pg 25.6-32.2 MEAN CORPUSCULAR HEMOGLOBIN CONC (BEAKER) (test ywfy=543) 33.4 GM/DL 32.2-35.5 RED CELL DISTRIBUTION WIDTH (BEAKER) (test eofo=128) 13.6 % 11.7-14.4 PLATELET COUNT (BEAKER) (test gyjm=054) 214 K/CU MM 150-450 MEAN PLATELET VOLUME (BEAKER) (test ppac=531) 10.1 fL 9.4-12.3 NUCLEATED RED BLOOD CELLS (BEAKER) (test phuk=325) 0 /100 WBC 0-0 NEUTROPHILS RELATIVE PERCENT (BEAKER) (test hdgt=531) 36 % LYMPHOCYTES RELATIVE PERCENT (BEAKER) (test xdzw=094) 51 % MONOCYTES RELATIVE PERCENT (BEAKER) (test ppje=751) 8 % EOSINOPHILS RELATIVE PERCENT (BEAKER) (test bmtp=310) 5 % BASOPHILS RELATIVE PERCENT (BEAKER) (test pumc=274) 0 % NEUTROPHILS ABSOLUTE COUNT (BEAKER) (test mnyn=600) 2.63 K/ L 1.56-6.13 LYMPHOCYTES ABSOLUTE COUNT (BEAKER) (test orsr=787) 3.72 K/ L 1.18-3.74 MONOCYTES ABSOLUTE COUNT (BEAKER) (test csjo=886) 0.59 K/ L 0.24-0.36 EOSINOPHILS ABSOLUTE COUNT (BEAKER) (test dkna=125) 0.36 K/ L 0.04-0.36 BASOPHILS ABSOLUTE COUNT (BEAKER) (test ckvx=672) 0.02 K/ L 0.01-0.08 IMMATURE GRANULOCYTES-RELATIVE PERCENT (BEAKER) (test jzlf=3906) 0 % 0-1 RAD, CHEST, 1 VIEW, NON [id number] 21:26:00Reason for exam:->sobFINAL REPORT Chest, 1 view. History: Shortness of breath. Comparison: 03/26/2013. Discussion: There are postsurgical changes from prior median sternotomy. The trachea is midline. The lungs are symmetrically expanded without evidence of focal consolidation, pneumothorax, or significant pleural effusion. The cardiomediastinal silhouette and pulmonary vasculature are within normal limits. Tortuosity/ectasia of the thoracic aorta noted. No acute osseous abn ormalities identified. The soft tissues are unremarkable. IMPRESSION: No acute cardiopulmonary process identified. Signed: Jayesh Morales MDReport Verified Date /Time: 01/19/2018 21:26:27 Reading Location: [facility] B1 [id number] Consult Reading Room
--- OUTSIDE RECORDS SUMMARY | 2019-08-10 17:00 | XMS REPORT | Summary of Care ---
Author Author Rubina Jacob M.A. 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 * Start : 20-Jun-2019 End : 27-Jun-2019 Active 21 Tablet Pack Allergies and Adverse Reactions Name Dates Details No Known Drug Allergies (Allergy) Status: Active Past Medical History Name Dates Details History of cardiac disorder (V12.50, Z86.79) Status: Resolved History of gastritis (V12.79, Z87.19) Status: Resolved History of hypertension (V12.59, Z86.79) Status: Resolved Procedures Procedure Dates Details History of Cochlear implant surgery Completed Immunization Name Dates Details Immunizations not documented Family History Name Dates Details Family history of cardiac disorder (V17.49, Z82.49) Comments: Family History Status: Active Social History Name Dates Details - Status: Name Dates Details Never smoker Vital Signs Date Test Result Details [id number] Height 60 in Status: Weight 158.1875 lb Status: Body Mass Index Calculated 30.89 kg/m2 Status: Results Date Description Value Details [id number] [U] XRAY HIPS BILATERAL MIN 2 VWS AND AP PELVIS [id number] XR HIPS BILATERAL MIN 2 VWS AND AP PELVIS Images acquired, not reported on this accession number. Plan of Care Name Dates Details Planned Observations Planned Goals not documented Planned Encounters Physical Therapy Referral Ortho Interventions Provided Medication Changes* methylPREDNISolone 4 MG Oral Tablet Therapy Pack - Start Labs/Procedures/Imaging* [U] XRAY HIPS BILATERAL MIN 2 VWS AND AP PELVIS [id number]; Done: 20 Jun 2019 Instructions Name Dates Details Instructions not documented Encounters Appointment; TRUPTI TAYLOR M.D. Encounter Diagnosis: Problem not documented On: 20-Jun-2019 15:00
[2019-08-10] MEDS ORDERED: MORPHINE SULFATE 2 MG/ML SYR 1ML IV STA (17:05)
[2019-08-10] MEDS ORDERED: ONDANSETRON HCL INJ 2MG/ML 2ML 2 MG/ML VIAL IV STA (17:05)
[2019-08-10] MEDS ORDERED: ASPIRIN 325 MG TAB PO ONE (17:15)
== END 2019-08-10 17:25 | disposition left against medical advice (07) ==
LOC: FSED 16:46
DX: R07.2 Precordial pain (principal); I11.0 Hypertensive heart disease with heart failure; I50.9 Heart failure, unspecified; J44.9 Chronic obstructive pulmonary disease, unspecified; Z79.01 Long term (current) use of anticoagulants; Z95.2 Presence of prosthetic heart valve; F17.210 Nicotine dependence, cigarettes, uncomplicated; Z99.81 Dependence on supplemental oxygen; E03.9 Hypothyroidism, unspecified; K21.9 Gastro-esophageal reflux disease without esophagitis
CPT/HCPCS: 80053; 84484; 93005; 99283